=== PATIENT | female | born 1970 | race Caucasian/White ===

== ENCOUNTER 2018-03-09 10:56 | Day surgery (SDC) | payer MEDICAID, SELFPAY ==
[2018-03-09] VITALS (8 sets, daily range): BP systolic 120–135; BP diastolic 72–83; PULSE 82–92; RESP 14–16; TEMP 36.3–36.8; O2SAT 91–95; BMI 37.5
--- NOTE | 2018-03-09 11:15 | EKG12_ITS ---
Test Reason : PREOP Blood Pressure : / mmHG Vent. Rate : 073 BPM Atrial Rate : 073 BPM P-R Int : 156 ms QRS Dur : 094 ms QT Int : 408 ms P-R-T Axes : 058 008 030 degrees QTc Int : 449 ms Normal sinus rhythm Normal ECG Confirmed by IMMANUEL LOPEZ, JENNA ([id number]), editor news SHOSHANA STOUT ([id number]) on 03/14/2018 3:54:49 PM Referred By: Raul Gallagher Confirmed By:JENNA GAMBINO MD
[2018-03-09 11:31] LABS: Hematocrit 40.1 % (37-47); Hemoglobin 13.6 g/dl (12.0-15.0); Mean Corp Hgb Conc 33.9 g/gl (32-36); Mean Corpuscular Hgb 30.2 pg (27.0-32.0); Mean Corpuscular Volume 89.1 fL (81-99); Mean Platelet Vol. 8.4 fl (6.2-12.0); Platelet Count 231 K/mm3 (150-450); RBC Distribution Width SD 41.7 fl (35.1-43.9); Scan Indicated on CBC? Y/N NO; White Blood Count 7.5 K/mm3 (4.4-11.0)
[2018-03-09 11:42] LABS: Anion Gap 6 (5-15); BUN 13 mg/dL (7-18); Chloride 105 mmol/L (98-107); Creatinine, Serum 0.87 mg/dL (0.55-1.02); EST Glomerular Filtration Rate 74 mL/min (>60); Est Glom Filt Rate - Afr Amer 90 mL/min (>60); Estimated Creatinine Clearance 71.93 ml/min; Glucose 83 mg/dL (74-106); Potassium 3.9 mmol/L (3.5-5.1); Sodium Level 139 mmol/L (136-145)
--- NOTE | 2018-03-09 13:20 | PCM.DC.GS ---
Discharge Diet: Light diet - advance as tolerated - if you have questions about your diet instructions, please talk to you doctor. Discharge Activity: May Not Drive - for 1 week or while taking narcotic pain medicine. May shower in (days): 1 Lifting Restrictions: 5 pounds Call your doctor if your incision/area has: Continuous Slow Oozing, Sudden Increased Bleeding, Increased Pain/ Swelling, Increased Redness, Foul Smelling Discharge Call your doctor if you observe: Fever of 101 or Higher Suture Line Care: Avoid Pulling/Pushing, Avoid Pinching/Bending Additional Dressing/Incision Instructions:: Please keep your left hand clean and dry. You may elevate your left hand to eliminate swelling. You may wrap the left hand and plastic in order to shower. Allergies/Adverse Reactions: Allergies fluoxetine HCl [From Prozac] Adverse Reaction (Verified 02/13/18 15:29) Other IT MAKES ME VERY VIOLENT AND VERY EMOTIONAL Medications to take at Discharge Calcium Carbonate/Vitamin D3 [Calcium 500-Vit D3 200 Tablet] 1 ea PO DAILY 11/03/15 Levothyroxine [Synthroid] 75 mcg PO DAILY 11/03/15 Multivitamin [Daily Multiple Vitamin] 1 ea PO DAILY 11/03/15 Trazodone HCl 50 mg PO QHS 11/03/15 Venlafaxine XR [Effexor Xr] 150 mg PO DAILY 11/03/15 magnesium 250 mg tablet 250 mg PO DAILY 02/13/18 omeprazole 20 mg capsule,delayed release 40 mg PO QDAY cap 02/13/18 Hydrocodone Bitart/Apap 5-325 [Cumming 5MG-325MG] 1 tablet PO Q6H PRN PRN 3 Days #10 tablet 03/09/18 Hydrocodone Bitart/Apap 5-325 [Cumming 5MG-325MG] 1 tablet PO Q6H PRN PRN 3 Days #10 tablet 03/09/18 The following prescriptions were given: Hydrocodone Bitart/Apap 5-325 [Cumming 5MG-325MG] 1 tablet PO Q6H PRN PRN 3 Days #10 tablet PRN Reason: Pain Hydrocodone Bitart/Apap 5-325 [Cumming 5MG-325MG] 1 tablet PO Q6H PRN PRN 3 Days #10 tablet PRN Reason: Pain Primary Care Physician: Stanley Sweeney DO [Primary Care Provider] - Test Results: Test results from this visit will be discussed in further detail at your follow-up appointment, if applicable. Please Follow Up With: Raul Gallagher MD - [phone] When: Call to make an appointment to be seen on Tuesday
[2018-03-09] MEDS: Bacitracin 500 UNITS/GM PACKET (13:50)
[2018-03-09] MEDS: Bupivacaine Mpf 0.5% 30 ML VIAL (13:51)
--- NOTE | 2018-03-09 13:56 | PCM.OPRPT ---
Problem List (1) Carpal tunnel syndrome of left wrist Status: Acute Report of Operation Date of Procedure: 03/09/18 Pre-Operative Diagnosis: Left carpal tunnel syndrome Post-Operative Diagnosis: Same Surgery/Procedure Performed:: Left carpal tunnel release Description of Surgical Findings:: Timeout and informed consent was obtained. 47-year female was taken the operating placement table. The left extremity sterilely prepped and draped after a Mari block anesthesia was performed. Tourniquet to 250 mmHg pressure total 21 minutes. The left hand was sterilely prepped draped. A curvilinear incision was made the base of the left palm. Sharp dissection carried down through the subcu tissue. The palmar fascia was identified and incised. The median nerve was identified. The palmar fascia was incised to the proximal wrist crease and then along the fourth ray to the mid palm. Good release was achieved. The wound was closed with deep layer of interrupted 4-0 chromic. The skin edges approximated with simple sutures of 4-0 nylon. The. Incisional area was anesthetized with 2.5 cc of 0.5% Marcaine. Telfa 4 x 4 soft roll Hudson wrap applied. Sponge and instrument and needle counts were reported the surgeon be correct. Blood loss was minimal. Specimens none. Drains none. Blood loss minimal. She was taken to the recovery area in satisfactory condition without apparent complication. Raul Gallagher M.D., F.A.C.S. Type of Anesthesia:: Block,Regional, Local Anesthesiologist: Santhosh Cintron
--- OUTSIDE RECORDS SUMMARY | 2018-05-04 13:22 | XMS RPT_ITS ---
:1970 Author Organization OHIP Care Team Providers Name Role Phone FLOWER ERAZO ([facility]) Referring Unavailable EREN DUTTON Attending Unavailable FLOWER ERAZO ([facility]) Referring Unavailable EREN DUTTON Referring Unavailable STANLEY NEWBY Attending Unavailable YONG GALLAGHER Referring Unavailable HERBERTH ZARATE ([facility]) Referring Unavailable FLOWER ERAZO ([facility]) Attending Unavailable FLOWER ERAZO ([facility]) Referring Unavailable STANLEY NEWBY Attending Unavailable FLOWER ERAZO ([facility]) Referring Unavailable FLOWER ERAZO ([facility]) Attending Unavailable STANLEY NEWBY Referring Unavailable Hugo Gambino Attending Unavailable Yong Gallagher Referring Unavailable Freddie Lawson Attending Unavailable Stanley Newby Referring Unavailable Stanley Newby Primary Care Unavailable Yong Gallagher Attending Unavailable Stanley Newby Referring Unavailable Yong Gallagher Attending Unavailable Yong Gallagher Referring Unavailable Stanley Newby Primary Care Unavailable Flower Morris PA-C Attending Unavailable Stanley Newby Referring Unavailable PROBLEMS PROBLEMS DATE TYPE CONDITION / CODE ATTENDING STATUS SOURCE 03/20/2018 Unknown Z01.810 - Encounter Hugo Gambino Active [place] [facility] examination / Repository Z01.810(ICD-10) 03/09/2018 Unknown G89.18 - Other acute Yong Gallagher Active [place] postprocedural pain [facility] / G89.18(ICD-10) Hospital Repository 04/25/2017 Active Mixed hyperlipidemia NA Active [place] / E78.2(ICD-10) Clinic [facility] [place] Repository 10/31/2017 Active Vitamin D NA Active [place] deficiency, Clinic Main unspecified / [place] E55.9(ICD-10) Repository 10/31/2017 Active Other fdc NA Active [place] (current) drug Clinic Main therapy / [place] Z79.899(ICD-10) Repository 10/31/2017 Active Impaired fasting NA Active [place] glucose / Clinic Main R73.01(ICD-10) [place] Repository 08/29/2017 Active Nontoxic goiter, NA Active [place] unspecified / Clinic Main E04.9(ICD-10) [place] Repository 08/29/2017 Active Unspecified mood NA Active [place] (affective) disorder Clinic Main / F39(ICD-10) [place] Repository 08/29/2017 Active Primary insomnia / NA Active [place] F51.01(ICD-10) Clinic Main [place] Repository 08/29/2017 Active Other fatigue / NA Active [place] R53.83(ICD-10) Clinic Main [place] Repository 06/09/2017 Active Encounter for NA Active [place] screening mammogram Clinic Main for malignant [place] neoplasm of breast / Repository Z12.31(ICD-10) 04/13/2017 Active Obstructive sleep NA Active [place] apnea (adult) Clinic Other (pediatric) / [place] G47.33(ICD-10) Repository 04/22/2017 Active Unknown / Ralph NEWBY UNK(Unknown) STANLEY L Clinic Main [place] Repository 03/30/2017 Active Plantar fascial NA Active [place] fibromatosis / Clinic Main M72.2(ICD-10) [place] Repository PROCEDURES PROCEDURES No Procedure Records FoundRESULTS RESULTS SURGERY VISIT REPORT Observed: 03/16/2018 Status: F Source: [place] 10:58 AM [facility] REPOSITORY [facility] [address] [place] [address] OFFICE VISIT Date of Service: 03/16/18 MR#: [id number] Acct: [id number] Name: RONNIE DANGELO Rep #: [id number] : 1970 Provider: Flower Morris PA-C Age/Sex: 47/F Location: [facility] Status: Signed Intake Intake Visit Reasons: Suture Removal LT Ctr RC 03/09 Allergies fluoxetine HCl [From Prozac] Adverse Reaction (Verified 02/13/18 15:29) Other Medications Calcium Carbonate/Vitamin D3 [Calcium 500-Vit D3 200 Tablet] 1 ea PO DAILY 11/03/15 [History Confirmed 03/03/18] Levothyroxine [Synthroid] 75 mcg PO DAILY 11/03/15 [History Confirmed 03/03/18] Multivitamin [Daily Multiple Vitamin] 1 ea PO DAILY 11/03/15 [History Confirmed 03/03/18] Trazodone HCl 50 mg PO QHS 11/03/15 [History Confirmed 03/03/18] Venlafaxine XR [Effexor Xr] 150 mg PO DAILY 11/03/15 [History Confirmed 03/03/18] magnesium 250 mg tablet 250 mg PO DAILY 02/13/18 [History Confirmed 03/03/18] omeprazole 20 mg capsule,delayed release 40 mg PO QDAY cap 02/13/18 [History Confirmed 03/03/18] Subjective Details: Patient is a 47 y/o female I am following for left carpal tunnel. Dr. Gallagher performed a left carpal tunnel release on 03/09/18. Patient tolerated the procedure well. She notes minimal amount of pain/discomfort. She notes good ROM of the hand and fingers. Minimal amount of inflammation. Objective Details: Left wrist- incision c/d/i. No erythema or infection noted. Sutures were removed. Steri-strips were placed. Excellent ROM. Assessment AND Plan Problems 1. Carpal tunnel syndrome of left wrist G56.02 Plan - Follow-up as needed - RTW letter given for 03/20/18 Coding Level of Care Code Global Post Op Diagnoses Carpal tunnel syndrome of left wrist G56.02 03/16/18 1058 <Electronically signed by Flower Morris PA-C> Date Flower Morris PA-C Cosigner Signature: Date (if applicable) CC: Stanley Mosqueda DO 12 LEAD ELECTROCARDIOGRAM Observed: 03/14/2018 Status: F Source: [place] 3:55 PM [facility] REPOSITORY [facility] Cardiovascular Services [address] [place] [address] [place] [address] 12 Lead EKG 03/09/18 1137 MR#: [id number] Acct: [id number] Name: RONNIE DANGELO Rep #: [id number] : 1970 47 From: Hugo Gambino MD Attending Dr: Yong Gallagher MD Status: [facility] Ordering Dr: Yong Gallagher MD Date: 03/09/18 Location: [facility] Sex: F C Admitted: Test Reason : PREOP Blood Pressure : / mmHG Vent. Rate : 073 BPM Atrial Rate : 073 BPM P-R Int : 156 ms QRS Dur : 094 ms QT Int : 408 ms P-R-T Axes : 058 008 030 degrees QTc Int : 449 ms Normal sinus rhythm Normal ECG Confirmed by IMMANUEL LOPEZ, HUGO ([id number]), publishing editor SHOSHANA STOUT ([id number]) on 03/14/2018 3:54:49 PM Referred By: Yong Gallagher Confirmed By:HUGO GAMBINO MD 03/14/18 1554 Date Hugo Gambino MD CC: Stanley Mosqueda DO; Yong Gallagher MD Signed DISCHARGE INSTRUCTION Observed: 03/09/2018 Status: F Source: [place] 2:32 PM [facility] REPOSITORY [facility] Medical Records Department [address] [place] [address] Instructions for Home/Discharge Instructions 03/09/18 1320 MR#: [id number] Acct: [id number] Name: RONNIE DANGELO Rep #: [id number] : 1970 47 From: Yong Gallagher MD PCP: Stanley Mosqueda, Status: REG SDC Discharge Diet: Light diet - advance as tolerated - if you have questions about your diet instructions, please talk to you doctor. Discharge Activity: May Not Drive - for 1 week or while taking narcotic pain medicine. May shower in (days): 1 Lifting Restrictions: 5 pounds Call your doctor if your incision/area has: Continuous Slow Oozing, Sudden Increased Bleeding, Increased Pain/ Swelling, Increased Redness, Foul Smelling Discharge Call your doctor if you observe: Fever of 101 or Higher Suture Line Care: Avoid Pulling/Pushing, Avoid Pinching/Bending Additional Dressing/Incision Instructions:: Please keep your left hand clean and dry. You may elevate your left hand to eliminate swelling. You may wrap the left hand and plastic in order to shower. Allergies/Adverse Reactions: Allergies fluoxetine HCl [From Prozac] Adverse Reaction (Verified 02/13/18 15:29) Other IT MAKES ME VERY VIOLENT AND VERY EMOTIONAL Medications to take at Discharge Calcium Carbonate/Vitamin D3 [Calcium 500-Vit D3 200 Tablet] 1 ea PO DAILY 11/03/15 Levothyroxine [Synthroid] 75 mcg PO DAILY 11/03/15 Multivitamin [Daily Multiple Vitamin] 1 ea PO DAILY 11/03/15 Trazodone HCl 50 mg PO QHS 11/03/15 Venlafaxine XR [Effexor Xr] 150 mg PO DAILY 11/03/15 magnesium 250 mg tablet 250 mg PO DAILY 02/13/18 omeprazole 20 mg capsule,delayed release 40 mg PO QDAY cap 02/13/18 Hydrocodone Bitart/Apap 5-325 [[place] 5MG-325MG] 1 tablet PO Q6H PRN PRN 3 Days #10 tablet 03/09/18 Hydrocodone Bitart/Apap 5-325 [[place] 5MG-325MG] 1 tablet PO Q6H PRN PRN 3 Days #10 tablet 03/09/18 The following prescriptions were given: Hydrocodone Bitart/Apap 5-325 [[place] 5MG-325MG] 1 tablet PO Q6H PRN PRN 3 Days #10 tablet PRN Reason: Pain Hydrocodone Bitart/Apap 5-325 [[place] 5MG-325MG] 1 tablet PO Q6H PRN PRN 3 Days #10 tablet PRN Reason: Pain Primary Care Physician: Stanley Newby DO [Primary Care Provider] - Test Results: Test results from this visit will be discussed in further detail at your follow-up appointment, if applicable. Please Follow Up With: Yong Gallagher MD - [phone] When: Call to make an appointment to be seen on Tuesday03/09/18 1432 <Electronically signed by Yong Gallagher MD> Date Yong Gallagher MD CC: Stanley Mosqueda DO OPERATIVE REPORT Observed: 03/09/2018 Status: F Source: [place] 2:32 PM [facility] REPOSITORY [facility] Medical Records Department [address] [place] [address] Operative Report 03/09/18 1356 MR#: [id number] Acct: [id number] Name: RONNIE DANGELO Rep #: [id number] : 1970 47 From: Yong Gallagher MD PCP: Stanley Mosqueda DO Status: REG [facility] Y Location: [place] [address] Problem List (1) Carpal tunnel syndrome of left wrist Status: Acute Report of Operation Date of Procedure: 03/09/18 Pre-Operative Diagnosis: Left carpal tunnel syndrome Post-Operative Diagnosis: Same Surgery/Procedure Performed:: Left carpal tunnel release Description of Surgical Findings:: Timeout and informed consent was obtained. 47-year female was taken the operating placement table. The left extremity sterilely prepped and draped after a Mari block anesthesia was performed. Tourniquet to 250 mmHg pressure total 21 minutes. The left hand was sterilely prepped draped. A curvilinear incision was made the base of the left palm. Sharp dissection carried down through the subcu tissue. The palmar fascia was identified and incised. The median nerve was identified. The palmar fascia was incised to the proximal wrist crease and then along the fourth ray to the mid palm. Good release was achieved. The wound was closed with deep layer of interrupted 4-0 chromic. The skin edges approximated with simple sutures of 4-0 nylon. The. Incisional area was anesthetized with 2.5 cc of 0.5% Marcaine. Telfa 4 x 4 soft roll [place] wrap applied. Sponge and instrument and needle counts were reported the surgeon be correct. Blood loss was minimal. Specimens none. Drains none. Blood loss minimal. She was taken to the recovery area in satisfactory condition without apparent complication. Yong Gallagher M.D., F.A.C.S. Type of Anesthesia:: Block,Regional, Local Anesthesiologist: Santhosh Cintron 03/09/18 1432 <Electronically signed by Yong Gallagher MD> Date Yong Gallagher MD CC: Stanley Mosqueda DO; Yong Gallagher MD Signed CBC-COMPLETE BLOOD CNT Collected: 03/09/2018 Status: F Source: [place] NO DIFF 11:26 AM [facility] REPOSITORY Order Comment: Comments: in ac room 15 TYPE CODE TESTS RESULT OUT OF RANGE REFERENCE UNITS LAB L100.1000 4.4-11.0 K/mm3 Normal WBC 7.5 LAB L100.1200 4.2-5.4 M/mm3 Normal RBC 4.50 LAB L100.1300 12.0-15.0 g/dl Normal HGB 13.6 LAB L100.1400 37-47 % Normal HCT 40.1 LAB L100.1500 81-99 fL Normal MCV 89.1 LAB L100.1600 27.0-32.0 pg Normal MCH 30.2 LAB L100.1700 32-36 g/gl Normal MCHC 33.9 LAB L100.1810 11.6-14.6 % Normal RDW CV 13.0 LAB L100.1820 35.1-43.9 fl Normal RDW SD 41.7 LAB L100.1900 150-450 K/mm3 Normal PLT 231 LAB L100.2000 6.2-12.0 fl Normal MPV 8.4 Performed By: #### L100.0500 #### [facility] [address] [place], [address] BASIC METABOLIC Collected: 03/09/2018 Status: F Source: [place] PROFILE (BMP) 11:26 AM [facility] REPOSITORY Order Comment: Comments: in ac room 15 TYPE CODE TESTS RESULT OUT OF RANGE REFERENCE UNITS LAB L501.0100 74-106 mg/dL Normal GLU 83 Result Comment: Please note revised GLUCOSE reference range effective 2017. LAB L501.1000 7-18 mg/dL Normal BUN 13 LAB L501.1100 0.55-1.02 mg/dL Normal CREAT,SERUM 0.87 Result Comment: The validity of the calculated GFR AND GFRAA in patients over 70 years has not been determined. Clinical correlation is essential. LAB L501.1110 >60 mL/min Normal EST GFR 74 Result Comment: Non- GFR Calc LAB L501.1115 >60 mL/min Normal EST GFR - AA 90 Result Comment: GFR Calc LAB L501.1255 ml/min Normal Estimated CRCL 71.93 LAB L501.1300 10-20 RATIO Normal BUN/CRE 15.0 LAB L501.2200 8.5-10 mg/dL Normal .1 CA 9.0 LAB L501.5300 136-14 mmol/L Normal 5 NA 139 LAB L501.5600 3.5-5. mmol/L Normal 1 K 3.9 LAB L501.5900 98-107 mmol/L Normal CL 105 LAB L501.6100 21.0-3 mmol/L Normal 2.0 CO2 28.0 LAB L501.6200 5-15 Normal GAP 6 Performed By: #### L500.2500 #### [facility] [address] [place], [address] SURGERY VISIT REPORT Observed: 02/13/2018 Status: F Source: [place] 5:33 PM [facility] REPOSITORY [facility] [address] [place] [address] OFFICE VISIT Date of Service: 02/13/18 MR#: [id number] Acct: [id number] Name: RONNIE DANGELO Rep #: [id number] : 1970 Provider: Yong Gallagher MD Age/Sex: 47/F Location: [facility] Status: Signed Intake Vital Signs02/13/18 Height 5 ft 5 in 02/13/18 Weight: 226 lb Intake Visit Reasons: Lt CTS-EMG [facility] 06/2016 - Req RC only he did Rt CTS [employer] Required: No Is patient in pain?: No Allergies fluoxetine HCl [From Prozac] Adverse Reaction (Verified 02/13/18 15:29) Other Medications Calcium Carbonate/Vitamin D3 [Calcium 500-Vit D3 200 Tablet] 1 ea PO DAILY 11/03/15 [History Confirmed 02/13/18] Levothyroxine [Synthroid] 75 mcg PO DAILY 11/03/15 [History Confirmed 02/13/18] Multivitamin [Daily Multiple Vitamin] 1 ea PO DAILY 11/03/15 [History Confirmed 02/13/18] Trazodone HCl 50 mg PO QHS 11/03/15 [History Confirmed 02/13/18] Venlafaxine XR [Effexor Xr] 150 mg PO DAILY 11/03/15 [History Confirmed 02/13/18] magnesium 250 mg tablet 250 mg PO DAILY 02/13/18 [History Confirmed 02/13/18] omeprazole 20 mg capsule,delayed release 40 mg PO QDAY cap 02/13/18 [History Confirmed 02/13/18] [facility] Medical History Anemia (Acute) Carpal tunnel syndrome (Acute) Depression (Acute) Diastasis of rectus abdominis (Acute 12/2015) Dysthymic disorder (Acute) Frequent headaches (Acute) GERD (gastroesophageal reflux disease) (Acute) Genital herpes in women (Acute 01/2007) HSV (herpes simplex virus) anogenital infection (Acute) Hypercholesteremia (Acute 05/2015) SHAINA (obstructive sleep apnea) (Acute 04/2017) Onychomycosis (Acute) Vision problems (Acute) Vitamin D deficiency (Acute) Surgical History History of appendectomy (Acute) History of carpal tunnel surgery of right wrist (Acute 09/2016) History of thyroid nodule (Acute 07/2007) History of thyroid surgery (Acute 08/2007) History of vaginal hysterectomy (Acute 11/2009) Family History Mother Anesthesia complication High cholesterol Thyroid disorder Father Anxiety Depression Diabetes High cholesterol CVA (cerebral vascular accident) Sister Thyroid disorder Grandmother Breast cancer Cancer Grandfather Cancer Social History household members: spouse number of children: 3 current occupational status: unemployed Smoking Status: Never smoker alcohol intake: never substance use type: does not use additional social history: CONTROL/PROTECTION: HAD VASECTOMY AND SHE HAS HAD A HYSTERECTOMY HPI HPI HPI: RONNIE DANGELO, is a 47 F who presents to the office today for surgical consultation regarding left carpal tunnel syndrome. This is a very pleasant patient. On June 30, 2016 she had nerve conduction test performed at the [facility]. This was consistent with moderate bilateral carpal tunnel syndrome. I subsequently took her to the operating room in [facility] to perform a right carpal tunnel release performed under a [place] block. The surgery proceeded well however the Mari block was complicated by the anesthesia injection of Marcaine rather than lidocaine. This led to 2-1/2 hours of tourniquet time and the need for lipid infusion and overnight ICU stay. Fortunately the patient has had a good surgical result with resolution of her right hand symptoms. She presents today as she does not want to be referred back to to [place]. She notes numbness of her left first 3 digits. She notes tingling. She would like to proceed with definitive treatment ROS General General: Yes weight change and fatigue; no appetite, colon cancer, breast cancer or weakness HEENT HEENT: No difficulty swallowing, eye injury, eye surgery, swollen glands or hoarseness Endo Endocrine: Yes thyroid disease; no diabetes mellitus, thyroid cancer, Hair loss, heat intolerance or cold intolerance Skin Skin: No rash or changing moles Breast Breast: No left breast lump, right breast lump, nipple discharge, breast pain, abnormal mammogram, abnormal US or breast enlargement Musc Musculoskeletal: No back problems, arthritis, rheumatoid arthritis, gout or joint pain Cardio Cardiovascular: No murmur, pacemaker, heart disease, atrial fibrillation, high blood pressure, heart attack, heart stent, palpitations, shortness of breat with exertion or chest pain Psych Psychiatric: Yes depression and anxiety; no hearing voices Resp Respiratory: Yes shortness of breath, Yes sleep apnea, No cough, No COPD, No asthma, No emphysema, No wheezing Gastro Gastrointestinal: No abdominal pain, No nausea or vomiting, No diarrhea, Yes constipation, No blood in stool, Yes acid reflux, No hemorrhoids, No ulcers, No gallbladder problem, No black,tarry stools Khris Hematologic: No blood thinners, No blood disorders, No bleeding, No anemia, No blood clots Neuro Neurologic: No system reviewed and no additional complaints, except as docu, No as per HPI, No abnormal walking, No abnormal hearing, No abnormal movements, No abnormal speech, No behavioral changes, No burning sensations, No confusion, No seizure-like activity, No unsteadiness, No dizziness, No localized weakness, No frequent falls, No headache(s), No lack of coordination, No loss of vision, No memory loss, Yes numbness, No other visual disturbances, No radiating pain, No restless legs, No sensory deficit, No fainting, Yes tingling, No tremor(s), No weakness, No other Exam Const General: cooperative Nutritional Appearance: obese Orientation: alert, awake, oriented x3 HENMT Head: normal to inspection Eyes General: appearance normal, both eyes and all related structures Chest Chest palpation AND inspection: normal inspection of the chest Breast Palpation: No nipple discharge Resp Effort AND Inspection: normal respiratory effort Auscultation: clear to auscultation bilaterally Cardio Rate: regular rate Rhythm: regular rhythm Heart Sounds: no murmurs GI Palpation: soft, no hepatosplenomegaly Extrem Other: Well-healed surgical incision right volar palm. Slight thenar atrophy on the left. Tinel sign is positive. 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 Carpal tunnel syndrome of left wrist G56.02 Plan I have recommended the patient left carpal tunnel release. I described the technique, benefits, risks, alternatives. I do propose that we proceed with a Mari block anticipating a lidocaine block. She has had the opportunity to ask and have questions answered. She would like to proceed with this procedure at the [facility]. I certainly appreciate the kind opportunity of continue to assist with her surgical care CC: Dr. Stanley Gallagher M.D., F.A.C.S. Coding Level of Care Code Off vis,est,level 2 Diagnoses Carpal tunnel syndrome of left wrist G56.02 02/13/18 1733 <Electronically signed by Yong Gallagher MD> Date Yong Gallagher MD Cosigner Signature: Date (if applicable) CC: Stanley Mosqueda DO PROGRESS Observed: 02/02/2018 Status: COMPLETED Source: [place] 12:11 PM [facility] RE[facility] HNO ID: [id number] Author: Flower Kendrick (Artist'S Representative) Castro Service: (none) Author Type: Nurse Practitioner Type: Progress Notes Filed: 02/02/2018 12:16 PM Note Text: HPI/CC: Ronnie Dangelo is a 47 year old female who presents for Recheck (3 month follow up) and Imm/Inj (Flu Vaccine). Today is concerned about worsening left UE carpal tunnel, requesting referral for surgery. Noticed increased numbness and tingling in the last 2-3 weeks. Has attempted splints and NSAIDs- no longer using splints. Has questions regarding diastasis recti repair. Previously seen by Dr. Perez per patient. Repair on hold d/t insurance per patient. ROS as above, otherwise non-contributory. Reviewed PMHx, PSHx, social Hx, medications and allergies. PHYSICAL EXAMINATION: BP 126/84 Pulse 96 Resp 16 Wt 102.5 kg (226 lb) LMP 11/16/2009 BMI 38.82 kg/m? General appearance: Well appearing, alert, in no acute distress, well-hydrated, well nourished. and Obese Skin: Skin color, texture, turgor normal, no suspicious rashes or lesions Lungs: Lungs clear to auscultation. No wheezing, rhonchi, rales Heart: RRR without murmur, gallop, or rubs. No ectopy ASSESSMENT/PLAN: 1. Carpal tunnel syndrome, left - ICD9: 354.0, ICD10: G56.02 (primary diagnosis) - CONSULT TO GENERAL SURGERY 2. Diastasis of rectus abdominis - ICD9: 728.84, ICD10: M62.08 - f/u with surgeon for recommendations 3. Need for vaccination - ICD9: V05.9, ICD10: Z23 - INFLUENZA VACCINE QUADRIVALENT AGE 3 YRS PLUS + IM Flower Erazo APRN.[employer]SEM[employer]ER PROGRESS Observed: 02/02/2018 Status: COMPLETED Source: [place] 11:59 AM [facility] REPOSITORY HNO ID: [id number] Author: Graciela Waters LPN Service: (none) Author Type: (none) Type: Progress Notes Filed: 02/02/2018 12:16 PM Note Text: 47 year old female here for INACTIVATED INFLUENZA VACCINE. 9663-5207 Season Patient is identified by name and date of : Yes [] CONTRAINDICATIONS color enhanced section Age less than 6 months? No Allergy to eggs, chicken, chicken feathers, or chicken dander? No Allergy to thimerosal (a preservative) or formaldehyde, gelatin? No History of severe reaction to any vaccine component or a previous dose of influenza vaccination? No History of Guillain-Burton Syndrome within 6 weeks after a previous influenza vaccine? No Patient is not moderately or severely ill? No Current temperature greater or equal to 100.4F? No History of Bone Marrow Transplant prior 6 months or solid organ transplant in the past 3 months ? No History of fainting after a prior injection or medical procedure? No- ? If patient has fainted in the past, the CDC recommends sitting or lying down for 15 minutes after the vaccination. [] VERIFICATION color enhanced section Was the answer Yes for any of the above contraindications? No contraindications present. Acceptable to proceed with vaccine. Patient/guardian agrees the above answers are true to the best of their knowledge? Yes Flu vaccine information sheet given? Yes See immunization activity in [facility] for details of immunizations adminstered today. Patient age: [age] year old For The 6747-3799 Flu Season 6-35 months old: Fluzone 0.25 ml - IM (Preservative Free) 3 years of age: Fluzone 0.5 ml - IM (Preservative Free) 3 years and older: Fluzone 0.5 ml- IM-(with Preservatives) 65+ years old: 2-49 years old Fluzone High-Dose 0.5 ml - IM (Preservative Free) FLUMIST- intranasal REMEMBER: If patient is less than 9 years of age and this is the first vaccine of Influenza to be received in any flu season, they should receive a second dose in one months time. CNOV Observed: 02/02/2018 Status: COMPLETED Source: [place] 10:40 AM [facility] REPOSITORY Office Visit (FAMPWS) RONNIE DANGELO ([id number]) 1970 F BLD Date Time Provider Department 02/02/18 10:40 AM FLOWER ERAZO ([facility]) FAMPWS During your visit today, we recorded the following information about you: Pulse Respiration Blood pressure Weight 96/minute 16/minute 126/84 102.5 kg Graciela Waters LPN 02/02/2018 12:16 PM Signed 47 year old female here for INACTIVATED INFLUENZA VACCINE. 1379-4443 Season Patient is identified by name and date of : Yes [] CONTRAINDICATIONS color enhanced section Age less than 6 months? No Allergy to eggs, chicken, chicken feathers, or chicken dander? No Allergy to thimerosal (a preservative) or formaldehyde, gelatin? No History of severe reaction to any vaccine component or a previous dose of influenza vaccination? No History of Guillain-Burton Syndrome within 6 weeks after a previous influenza vaccine? No Patient is not moderately or severely ill? No Current temperature greater or equal to 100.4F? No History of Bone Marrow Transplant prior 6 months or solid organ transplant in the past 3 months ? No History of fainting after a prior injection or medical procedure? No- ? If patient has fainted in the past, the CDC recommends sitting or lying down for 15 minutes after the vaccination. [] VERIFICATION color enhanced section Was the answer Yes for any of the above contraindications? No contraindications present. Acceptable to proceed with vaccine. Patient/guardian agrees the above answers are true to the best of their knowledge? Yes Flu vaccine information sheet given? Yes See immunization activity in [facility] for details of immunizations adminstered today. Patient age: [age] year old For The [id number] Flu Season 6-35 months old: Fluzone 0.25 ml - IM (Preservative Free) 3 years of age: Fluzone 0.5 ml - IM (Preservative Free) 3 years and older: Fluzone 0.5 ml- IM-(with Preservatives) 65+ years old: 2-49 years old Fluzone High-Dose 0.5 ml - IM (Preservative Free) FLUMIST- intranasal REMEMBER: If patient is less than 9 years of age and this is the first vaccine of Influenza to be received in any flu season, they should receive a second dose in one months time. Flower Erazo APRN.[employer] 02/02/2018 12:16 PM Signed HPI/CC: Ronnie Dangelo is a 47 year old female who presents for Recheck (3 month follow up) and Imm/Inj (Flu Vaccine). Today is concerned about worsening left UE carpal tunnel, requesting referral for surgery. Noticed increased numbness and tingling in the last 2-3 weeks. Has attempted splints and NSAIDs- no longer using splints. Has questions regarding diastasis recti repair. Previously seen by Dr. ePrez per patient. Repair on hold d/t insurance per patient. ROS as above, otherwise non-contributory. Reviewed PMHx, PSHx, social Hx, medications and allergies. PHYSICAL EXAMINATION: BP 126/84 Pulse 96 Resp 16 Wt 102.5 kg (226 lb) LMP 11/16/2009 BMI 38.82 kg/m? General appearance: Well appearing, alert, in no acute distress, well-hydrated, well nourished. and Obese Skin: Skin color, texture, turgor normal, no suspicious rashes or lesions Lungs: Lungs clear to auscultation. No wheezing, rhonchi, rales Heart: RRR without murmur, gallop, or rubs. No ectopy ASSESSMENT/PLAN: 1. Carpal tunnel syndrome, left - ICD9: 354.0, ICD10: G56.02 (primary diagnosis) - CONSULT TO GENERAL SURGERY 2. Diastasis of rectus abdominis - ICD9: 728.84, ICD10: M62.08 - f/u with surgeon for recommendations 3. Need for vaccination - ICD9: V05.9, ICD10: Z23 - INFLUENZA VACCINE QUADRIVALENT AGE 3 YRS PLUS + IM Flower Erazo APRN.[employer]ER Referring Provider: STANLEY NEWBY [[id number]] Allergies As of Date: 02/02/2018 Noted Allergy Reaction PROZAC (FLUOXETINE HCL) 07/14/2011 14 - Other: See Comments Comments: Aggressive behavior, emotional Date Reviewed: 02/02/2018 Reviewed by: Graciela Waters LPN - Fully Assessed Reason for Visit: Recheck [92] Cmt: 3 month follow up Imm/Inj [58] Cmt: Flu Vaccine Reason For Visit History Recorded Primary Visit Diagnosis:Carpal tunnel syndrome, left [G56.02] Other Visit Diagnoses:Diastasis of rectus abdominis [M62.08] Need for vaccination [Z23] Order(s):CONSULT TO GENERAL SURGERY [9011] Order #: [id number]: 1 INFLUENZA VACCINE QUADRIVALENT AGE 3 YRS PLUS + IM [[id number]] Order #: [id number] Prescriptions as of 02/02/2018 Sig: TRAZODONE 50 MG TABLET Take 1 tablet by mouth daily * TRIAMCINOLONE ACETONIDE 0.1 %* Apply 1 application to affect* PANTOPRAZOLE 40 MG TABLET,DEL* Take 1 tablet by mouth once d* VENLAFAXINE ER 150 MG CAPSULE* Take 1 capsule by mouth once * CALCIUM CARBONATE-VITAMIN D3 * Take 1 tablet by mouth twice * FLUTICASONE 50 MCG/ACTUATION * Use 2 Sprays in each nostril * LEVOTHYROXINE 75 MCG TABLET Take 1 tablet by mouth daily * COMPOUNDED PRESCRIPTION CPAP Supplies; hose; mask * CPAP Initiate CPAP @ 10 cm of wate* COMPOUNDED PRESCRIPTION Powerstep full length origina* CHOLECALCIFEROL (VITAMIN D3) * Take 1 tablet by mouth once d* ASPIRIN 325 MG TABLET Take 325 mg by mouth once enmanuel* * DAILY VITAMIN TABLET Take one(1) tablet daily. 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.9] INVALID FOR* KARLOS'S DISEASE OR STRUMA [E06.3] INVALID FOR* Abdominal pain, lower [R10.30] INVALID FOR*07/14/2011 Menorrhagia [N92.0] INVALID FOR*07/14/2011 Enlarged uterus [N85.2] INVALID FOR*07/14/2011 Pelvic pain INVALID FOR*07/14/2011 Anxiety [F41.9] INVALID FOR* Panic attack [F41.0] INVALID FOR* Diastasis of rectus abdominis [M62.08] INVALID FOR*04/13/2017 Carpal tunnel syndrome, bilateral [G56.03] INVALID FOR* Gastroesophageal reflux disease without esophag*INVALID FOR* Medication monitoring encounter [Z51.81] INVALID FOR*04/13/2017 SHAINA (obstructive sleep apnea) [G47.33] INVALID FOR* Mixed hyperlipidemia [E78.2] INVALID FOR* Obesity, Class II, BMI 35-39.9 [E66.9] INVALID FOR* Diastasis of rectus abdominis [M62.08] INVALID FOR* Vitamin D deficiency [E55.9] INVALID FOR* Elevated fasting glucose [R73.01] INVALID FOR* Plantar fasciitis [M72.2] INVALID FOR* Belching [R14.2] INVALID FOR* Rhus dermatitis [L23.7] INVALID FOR* Encounter Status:Closed by FLOWER ERAZO CNP on 02/02/18 LIPID PANEL, BASIC Collected: 10/31/2017 Status: F Source: [place] 9:54 AM [facility] REPOSITORY TYPE CODE TESTS RESULT OUT OF REFERENCE UNITS RANGE LAB CHOL <200 mg/dL Cholesterol 186 Result Comment: <200 mg/dL, Desirable 200-239 mg/dL, Borderline high >239 mg/dL, High LAB TRIGLY <150 mg/dL Triglyceride High 162 Result Comment: <150 mg/dL, Normal 150-199 mg/dL, Borderline high 200-499 mg/dL, High >499 mg/dL, Very high LAB HDL >39 mg/dL HDL-Cholesterol 46 Result Comment: 40-59 mg/dL, Acceptable >59 mg/dL, High: Negative risk factor for coronary heart disease <40 mg/dL, Low: Positive risk factor for coronary heart disease LAB LDL <100 mg/dL LDL-Cholesterol High 108 Result Comment: <100 mg/dL, Optimal 100-129 mg/dL, Near optimal/above optimal 130-159 mg/dL, Borderline high 160-189 mg/dL, High >189 mg/dL, Very high Secondary prevention optimal LDL Cholesterol levels are recommended to be < 70 mg/dL LAB NONHDL <130 mg/dL Non HDL High Cholesterol 140 Result Comment: <130 mg/dL, Optimal 130-159 mg/dL, Near optimal/above optimal 160-189 mg/dL, Borderline high 190-219 mg/dL, High >219 mg/dL, Very high Secondary prevention optimal non HDL Cholesterol levels are recommended to be < 100 mg/dL LAB FT hrs Fasting Time 12 LAB VLDL <30 mg/dL High VLDL Cholesterol 32 LAB TCHDL <5.10 TC:HDL Ratio 4.04 LAB LDLHDL <2.54 LDL:HDL Ratio 2.35 Result Comment: Reference: 1. National Cholesterol Education Program ATP III Guideline At-A-Glance Quick Desk Reference: National Heart, Lung, and Blood [place]. National Institutes of Health. 2001: NIH Publication No. 01-3305. 2. An International Atherosclerosis Society position paper: global recommendations for the management of dyslipidemia: executive summary, Atherosclerosis. 2014: 232(2):410-413. Performed By: #### LIPB, HBA1C, VITD #### [facility] [address], [place] [address] HEMOGLOBIN A1C Collected: 10/31/2017 Status: F Source: [place] 9:54 AM [facility] REPOSITORY TYPE CODE TESTS RESULT OUT OF REFERENCE UNITS RANGE LAB HGBA1C 4.3-5.6 % Hemoglobin A1c 4.9 LAB HBA0 mg/dL Est. Average Glucose 94 Result Comment: eAG: (Estimated average glucose) is a calculated value from HgbA1c and is telemarketing sales representative of the average blood glucose level in the last 2-3 month period. Performed By: #### LIPB, HBA1C, VITD #### [facility] [address], [place] [address] VITAMIN D 25 HYDROXY Collected: 10/31/2017 Status: F Source: [place] 9:54 AM [facility] REPOSITORY TYPE CODE TESTS RESULT OUT OF REFERENCE UNITS RANGE LAB VITD 31.0-80.0 ng/mL Vitamin D 25 37.4 Hydroxy Result Comment: Classification of 25 [place] Vitamin D status: Insufficiency/Moderate Deficiency: < or = 30 ng/mL Sufficiency/Optimal Levels: 31 to 80 ng/mL Toxicity: > 100 ng/mL Test performed by chemiluminescent immunoassay. Performed By: #### LIPB, HBA1C, VITD #### [facility] [address] [place], [place] [address] PROGRESS Observed: 10/31/2017 Status: COMPLETED Source: [place] 8:58 AM [facility] REPOSITORY HNO ID: [id number] Author: Stanley Newby Service: (none) Author Type: Physician Type: Progress Notes Filed: 11/01/2017 6:59 AM Note Text: CC: Ronnie Dangelo is a 46 year old female who presents to the office for 6 months follow up HPI: Rash on face, started on face about 2-3 days ago, also area on upper back, slightly itchy, red. Had done some vine removal last week. b/l foot pain, hx of plantar fasciitis on left foot, right Is greater pain now, stands at lot at her job, has old tennis shoes but has put in shoe inserts with mild relief, no regular icing or stretching. Mood, hx of depression, stable HPL, hasn't had recently rechecked Heartburn, acid reflux symptoms daily, not just food triggered, no nausea or bowel changes or blood in stool, no vomiting or dysphagia Diastasis rectus, working with surgeon to get approved for repair with insurance PAST MEDICAL HISTORY Diagnosis Date - Diastasis of rectus abdominis 12/11/2015 - Dysthymic disorder Depression (non-psychotic) - Genital herpes, unspecified 01/09/2007 - HSV (herpes simplex virus) anogenital infection 1990 - Hypercholesteremia 05/2015 - Onychomycosis - SHAINA (obstructive sleep apnea) 04/13/2017 PAST SURGICAL HISTORY Procedure Laterality Date - APPENDECTOMY - REVISE MEDIAN N/CARPAL TUNNEL SURG Right 09/13/2016 - THYROID LEFT FINE NEEDLE ASPIRATION 08/02/07 U/ S FNA left thyroid nodule - THYROID LOBECTOMY,UNILAT 08/31/07 LEFT - VAGINAL HYSTERECTOMY 12/01/09 [facility] for fibroid, menorrhagia, adenomyosis Current Outpatient Prescriptions: venlafaxine ER (EFFEXOR XR) 150 mg 24 hr capsule Take 1 capsule by mouth once daily. calcium carbonate-vitamin D3 500mg (1,250mg) -600 unit tab Take 1 tablet by mouth twice daily. fluticasone (FLONASE) 50 mcg/actuation nasal spray Use 2 Sprays in each nostril once daily. Rinse mouth after use. levothyroxine (LEVOTHROID) 75 mcg tablet Take 1 tablet by mouth daily before breakfast. COMPOUNDED PRESCRIPTION CPAP Supplies; hose; mask DX: SHAINA CPAP Initiate CPAP @ 10 cm of water with humidification. Mask (per patient preference) optional chin strap (if indicated) , filters, tubing, humidifier and lifetime supplies. omeprazole (PRILOSEC) 20 mg capsule Take 1 capsule by mouth daily before breakfast. 1/2 hr before meal. COMPOUNDED PRESCRIPTION Powerstep full length originalDx: plantar fasciitis cholecalciferol (VITAMIN D3) 2,000 unit tablet Take 1 tablet by mouth once daily. traZODone (DESYREL) 50 mg tablet Take 1 tablet by mouth daily at bedtime. multivitamins(DAILY VITAMIN TAB) Take one(1) tablet daily. aspirin 325 mg tablet Take 325 mg by mouth once daily. No current facility-administered medications for this visit. ALLERGIES Allergen Reactions - Prozac [Fluoxetine * Other: See Comments Aggressive behavior, emotional Social History Marital status: Spouse name: SHANE Years of education: 12 Number of children: 3 Occupational History Occupation Employer Comment not employed Social History Main Topics Smoking status: Never Smoker Smokeless tobacco: Never Used Alcohol use: No Drug use: No Sexual activity: Yes Partners with: Male control/protection: Vasectomy ROS: See HPI PE: BP 116/70 Pulse 80 Temp (Src) 98.3 (Left Tympanic) Resp 16 Wt 228 lb (103.4kg) LMP 11/16/2009 Gen: AANDOX3, NAD, non-toxic appearing HEENT: PERRLA, EOMs intact b/l, nares without drainage, pharynx without erythema, exudate, lesions, or drainage. Uvula midline. Neck: No LAD, no thyromegaly, no meningismus. CV: RRR, no murmur Lungs: CTA b/l, no wheezing Skin: erythematous papulovesicular rash around right cheek and supeiror and inferior orolabial areas as well as left upper back and right forearm TTP plantar surface of heel on right >left Diastasis recti abd muscles ASSESSMENT/PLAN: 1. Rhus dermatitis - ICD9: 692.6, ICD10: L23.7 (primary diagnosis) - discussed skin care of rash - follow up if symptoms persist or worsen. - TRIAMCINOLONE ACETONIDE 0.1 % TOPICAL CREAM - PREDNISONE 10 MG TABLET 2. Gastroesophageal reflux disease without esophagitis - ICD9: 530.81, ICD10: K21.9 - Discussed lifestyle modifications including losing weight, limiting caffeine, no meals three hours before sleep and head of bed elevation - Begin treatment with Protonix 40 mg qday - PANTOPRAZOLE 40 MG TABLET,DELAYED RELEASE 3. Belching - ICD9: 787.3, ICD10: R14.2 - see above - PANTOPRAZOLE 40 MG TABLET,DELAYED RELEASE 4. Plantar fasciitis - ICD9: 728.71, ICD10: M72.2 - stretches and icing and follow up with filling winder if heel cups and these conservative measures without improvement 5. Mixed hyperlipidemia - ICD9: 272.2, ICD10: E78.2 - to be determined upon return of lab results - Continue current medication. - Encouraged following a low fat, low cholesterol diet. - Discussed the benefits of regular aerobic exercise and weight loss. - Check fasting lipid panel - LIPID PANEL BASIC 6. Elevated fasting glucose - ICD9: 790.21, ICD10: R73.01 - HGB A1C 7. Vitamin D deficiency - ICD9: 268.9, ICD10: E55.9 - continue supplement 8. SHAINA (obstructive sleep apnea) - ICD9: 327.23, ICD10: G47.33 - continue CPAP- 9. Diastasis of rectus abdominis - ICD9: 728.84, ICD10: M62.08 - f/u with surgeon Stanley Newby DO Return if no improvement. Follow up with Stanley Newby DO. Discussed risks, benefits, alternatives, and potential side effects of medications. Patient/Guardian expressed understanding and agreed with the plan. See patient instructions. Stanley Newby DO [address] [place] [address] CNOV Observed: 10/31/2017 Status: COMPLETED Source: [place] 8:40 AM [facility] REPOSITORY Office Visit (FAMPWS) RONNIE DANGELO ([id number]) 1970 F D Date Time Provider Department 10/31/17 8:40 AM STANLEY NEWBY FAMKeilyWS During your visit today, we recorded the following information about you: Temperature Pulse Respiration Blood pressure 98.3 degrees 80/minute 16/minute 116/70 Weight 103.4 kg Stanley Newby DO 11/01/2017 6:59 AM Signed CC: Ronnie Dangelo is a 46 year old female who presents to the office for 6 months follow up HPI: Rash on face, started on face about 2-3 days ago, also area on upper back, slightly itchy, red. Had done some vine removal last week. b/l foot pain, hx of plantar fasciitis on left foot, right Is greater pain now, stands at lot at her job, has old tennis shoes but has put in shoe inserts with mild relief, no regular icing or stretching. Mood, hx of depression, stable HPL, hasn't had recently rechecked Heartburn, acid reflux symptoms daily, not just food triggered, no nausea or bowel changes or blood in stool, no vomiting or dysphagia Diastasis rectus, working with surgeon to get approved for repair with insurance PAST MEDICAL HISTORY Diagnosis Date - Diastasis of rectus abdominis 12/11/2015 - Dysthymic disorder Depression (non-psychotic) - Genital herpes, unspecified 01/09/2007 - HSV (herpes simplex virus) anogenital infection 1990 - Hypercholesteremia 05/2015 - Onychomycosis - SHAINA (obstructive sleep apnea) 04/13/2017 PAST SURGICAL HISTORY Procedure Laterality Date - APPENDECTOMY - REVISE MEDIAN N/CARPAL TUNNEL SURG Right 09/13/2016 - THYROID LEFT FINE NEEDLE ASPIRATION 08/02/07 U/ S FNA left thyroid nodule - THYROID LOBECTOMY,UNILAT 08/31/07 LEFT - VAGINAL HYSTERECTOMY 12/01/09 [facility] for fibroid, menorrhagia, adenomyosis Current Outpatient Prescriptions: venlafaxine ER (EFFEXOR XR) 150 mg 24 hr capsule Take 1 capsule by mouth once daily. calcium carbonate-vitamin D3 500mg (1,250mg) -600 unit tab Take 1 tablet by mouth twice daily. fluticasone (FLONASE) 50 mcg/actuation nasal spray Use 2 Sprays in each nostril once daily. Rinse mouth after use. levothyroxine (LEVOTHROID) 75 mcg tablet Take 1 tablet by mouth daily before breakfast. COMPOUNDED PRESCRIPTION CPAP Supplies; hose; mask DX: SHAINA CPAP Initiate CPAP @ 10 cm of water with humidification. Mask (per patient preference) optional chin strap (if indicated) , filters, tubing, humidifier and lifetime supplies. omeprazole (PRILOSEC) 20 mg capsule Take 1 capsule by mouth daily before breakfast. 1/2 hr before meal. COMPOUNDED PRESCRIPTION Powerstep full length originalDx: plantar fasciitis cholecalciferol (VITAMIN D3) 2,000 unit tablet Take 1 tablet by mouth once daily. traZODone (DESYREL) 50 mg tablet Take 1 tablet by mouth daily at bedtime. multivitamins(DAILY VITAMIN TAB) Take one(1) tablet daily. aspirin 325 mg tablet Take 325 mg by mouth once daily. No current facility-administered medications for this visit. ALLERGIES Allergen Reactions - Prozac [Fluoxetine * Other: See Comments Aggressive behavior, emotional Social History Marital status: Spouse name: SHANE Years of education: 12 Number of children: 3 Occupational History Occupation Employer Comment not employed Social History Main Topics Smoking status: Never Smoker Smokeless tobacco: Never Used Alcohol use: No Drug use: No Sexual activity: Yes Partners with: Male control/protection: Vasectomy ROS: See HPI PE: BP 116/70 Pulse 80 Temp (Src) 98.3 (Left Tympanic) Resp 16 Wt 228 lb (103.4kg) LMP 11/16/2009 Gen: AANDOX3, NAD, non-toxic appearing HEENT: PERRLA, EOMs intact b/l, nares without drainage, pharynx without erythema, exudate, lesions, or drainage. Uvula midline. Neck: No LAD, no thyromegaly, no meningismus. CV: RRR, no murmur Lungs: CTA b/l, no wheezing Skin: erythematous papulovesicular rash around right cheek and supeiror and inferior orolabial areas as well as left upper back and right forearm TTP plantar surface of heel on right >left Diastasis recti abd muscles ASSESSMENT/PLAN: 1. Rhus dermatitis - ICD9: 692.6, ICD10: L23.7 (primary diagnosis) - discussed skin care of rash - follow up if symptoms persist or worsen. - TRIAMCINOLONE ACETONIDE 0.1 % TOPICAL CREAM - PREDNISONE 10 MG TABLET 2. Gastroesophageal reflux disease without esophagitis - ICD9: 530.81, ICD10: K21.9 - Discussed lifestyle modifications including losing weight, limiting caffeine, no meals three hours before sleep and head of bed elevation - Begin treatment with Protonix 40 mg qday - PANTOPRAZOLE 40 MG TABLET,DELAYED RELEASE 3. Belching - ICD9: 787.3, ICD10: R14.2 - see above - PANTOPRAZOLE 40 MG TABLET,DELAYED RELEASE 4. Plantar fasciitis - ICD9: 728.71, ICD10: M72.2 - stretches and icing and follow up with filling winder if heel cups and these conservative measures without improvement 5. Mixed hyperlipidemia - ICD9: 272.2, ICD10: E78.2 - to be determined upon return of lab results - Continue current medication. - Encouraged following a low fat, low cholesterol diet. - Discussed the benefits of regular aerobic exercise and weight loss. - Check fasting lipid panel - LIPID PANEL BASIC 6. Elevated fasting glucose - ICD9: 790.21, ICD10: R73.01 - HGB A1C 7. Vitamin D deficiency - ICD9: 268.9, ICD10: E55.9 - continue supplement 8. SHAINA (obstructive sleep apnea) - ICD9: 327.23, ICD10: G47.33 - continue CPAP- 9. Diastasis of rectus abdominis - ICD9: 728.84, ICD10: M62.08 - f/u with surgeon Stanley Newby DO Return if no improvement. Follow up with Stanley Newby DO. Discussed risks, benefits, alternatives, and potential side effects of medications. Patient/Guardian expressed understanding and agreed with the plan. See patient instructions. Stanley Newby DO [address] [place] [address] Stanley Newby DO 10/31/2017 9:15 AM Signed Ice massage the bottom of the foot with frozen water bottle 10 min twice a day and get heel cup over the counter to put in your shoe, Try New Balance shoes. Referring Provider: SELF [[id number]] Allergies As of Date: 10/31/2017 Noted Allergy Reaction PROZAC (FLUOXETINE HCL) 07/14/2011 14 - Other: See Comments Comments: Aggressive behavior, emotional Date Reviewed: 10/31/2017 Reviewed by: Johanna Rollins LPN - Fully Assessed Reason for Visit: Follow Up [171] Cmt: 6 months Primary Visit Diagnosis:Rhus dermatitis [L23.7] Other Visit Diagnoses:Gastroesophageal reflux disease without esophagitis [K21.9] Belching [R14.2] Plantar fasciitis [M72.2] Mixed hyperlipidemia [E78.2] Elevated fasting glucose [R73.01] Vitamin D deficiency [E55.9] SHAINA (obstructive sleep apnea) [G47.33] Diastasis of rectus abdominis [M62.08] Order(s):triamcinolone acetonide (KENALOG) 0.1 % creamApply 1 application to affected area three times daily as needed. Apply sparingly to area for rash/itching. As neededDisp: 30 gRfl: 1 predniSONE (DELTASONE) 10 mg tabletTake 4 tabs daily for 3 days, then 2 tabs daily for 3 days, then 1 tab daily for 3 days with food.Disp: 21 tabletRfl: [address] (PROTONIX) 40 mg tabletTake 1 tablet by mouth once daily.Disp: 30 tabletRfl: 3 HGB A1C [[id number]] Order #: [id number] FUTURE LIPID PANEL BASIC [SQLIPB] Order #: [id number] FUTURE Prescriptions as of 10/31/2017 Sig: VENLAFAXINE ER 150 MG CAPSULE* Take 1 capsule by mouth once * CALCIUM CARBONATE-VITAMIN D3 * Take 1 tablet by mouth twice * FLUTICASONE 50 MCG/ACTUATION * Use 2 Sprays in each nostril * LEVOTHYROXINE 75 MCG TABLET Take 1 tablet by mouth daily * COMPOUNDED PRESCRIPTION CPAP Supplies; hose; mask * CPAP Initiate CPAP @ 10 cm of wate* COMPOUNDED PRESCRIPTION Powerstep full length origina* CHOLECALCIFEROL (VITAMIN D3) * Take 1 tablet by mouth once d* TRAZODONE 50 MG TABLET Take 1 tablet by mouth daily * * DAILY VITAMIN TABLET Take one(1) tablet daily. TRIAMCINOLONE ACETONIDE 0.1 %* Apply 1 application to affect* PREDNISONE 10 MG TABLET Take 4 tabs daily for 3 days,* PANTOPRAZOLE 40 MG TABLET,DEL* Take 1 tablet by mouth once d* ASPIRIN 325 MG TABLET Take 325 mg by mouth once enmanuel* Medication notes this encounter ASPIRIN 325 MG TABLET >> Johanna Rollins LPN 10/31/2017 8:52 AM >> JOHANNA ROLLINS LPN TueOct 31, 2017 8:52 AM Finished Problem List As Of Date 10/31/2017 Noted Resolved SUPERVIS OTHER NORMAL PREG [Z34.80] INVALID FOR*03/14/2007 AMA MULTIGRAVID-ANTEPARTUM [O09.529] INVALID FOR*03/14/2007 Genital herpes, unspecified [A60.00] INVALID FOR*09/10/2016 Non-toxic nodular goiter [E04.9] INVALID FOR* KARLOS'S DISEASE OR STRUMA [E06.3] INVALID FOR* Abdominal pain, lower [R10.30] INVALID FOR*07/14/2011 Menorrhagia [N92.0] INVALID FOR*07/14/2011 Enlarged uterus [N85.2] INVALID FOR*07/14/2011 Pelvic pain INVALID FOR*07/14/2011 Anxiety [F41.9] INVALID FOR* Panic attack [F41.0] INVALID FOR* Diastasis of rectus abdominis [M62.08] INVALID FOR*04/13/2017 Carpal tunnel syndrome, bilateral [G56.03] INVALID FOR* Gastroesophageal reflux disease without esophag*INVALID FOR* Medication monitoring encounter [Z51.81] INVALID FOR*04/13/2017 SHAINA (obstructive sleep apnea) [G47.33] INVALID FOR* Mixed hyperlipidemia [E78.2] INVALID FOR* Obesity, Class II, BMI 35-39.9 [E66.9] INVALID FOR* Other instructions from your clinician: Ice massage the bottom of the foot with frozen water bottle 10 min twice a day and get heel cup over the counter to put in your shoe, Try [employer] shoes. Prescriptions ordered this encounter Disp Refills Start End TRIAMCINOLONE ACETONIDE 0.1 % TOPICA* 30 g 1 10/31/2017 Route: TOPICAL Sig: Apply 1 application to affected area three times daily as needed. Apply sparingly to area for rash/itching. As needed PREDNISONE 10 MG TABLET 21 t* 0 10/31/2017 11/09/2017 Sig: Take 4 tabs daily for 3 days, then 2 tabs daily for 3 days, then 1 tab daily for 3 days with food. PANTOPRAZOLE 40 MG TABLET,DELAYED RE* 30 t* 3 10/31/2017 Route: ORAL Sig: Take 1 tablet by mouth once daily. Medications Discontinued During This Encounter omeprazole (PRILOSEC) 20 mg capsule 90 c* 3 05/17/2017 10/31/2017 Route: ORAL Sig: Take 1 capsule by mouth daily before breakfast. 1/2 hr before meal. Disc: Reason for discontinue is not on file. Encounter Status:Closed by STANLEY NEWBY DO on 11/01/17 CNPTOLASHAWN Observed: 10/18/2017 Status: COMPLETED Source: [place] 12:00 AM [facility] REPOSITORY Patient Outreach (FAMPST) RONNIE DANGELO ([id number]) 1970 F BLD Date Time Provider Department 10/18/17 STANLEY NEWBY FAMPST During your visit today, we recorded the following information about you: Allergies As of Date: 10/18/2017 Noted Allergy Reaction PROZAC (FLUOXETINE HCL) 07/14/2011 14 - Other: See Comments Comments: Aggressive behavior, emotional Date Reviewed: 08/29/2017 Reviewed by: Graciela Waters LPN - Fully Assessed Visit Diagnosis:Medication management [Z79.899] Order(s):LIPID PANEL BASIC [SQLIPB] Order #: [id number] FUTURE Prescriptions as of 10/18/2017 Sig: VENLAFAXINE ER 150 MG CAPSULE* Take 1 capsule by mouth once * CALCIUM CARBONATE-VITAMIN D3 * Take 1 tablet by mouth twice * FLUTICASONE 50 MCG/ACTUATION * Use 2 Sprays in each nostril * LEVOTHYROXINE 75 MCG TABLET Take 1 tablet by mouth daily * COMPOUNDED PRESCRIPTION CPAP Supplies; hose; mask * CPAP Initiate CPAP @ 10 cm of wate* X OMEPRAZOLE 20 MG CAPSULE,MACIEJ* Take 1 capsule by mouth daily* COMPOUNDED PRESCRIPTION Powerstep full length origina* CHOLECALCIFEROL (VITAMIN D3) * Take 1 tablet by mouth once d* ASPIRIN 325 MG TABLET Take 325 mg by mouth once enmanuel* X TRAZODONE 50 MG TABLET Take 1 tablet by mouth daily * * DAILY VITAMIN TABLET Take one(1) tablet daily. Problem List As Of Date 10/18/2017 Noted Resolved SUPERVIS OTHER NORMAL PREG [Z34.80] INVALID FOR*03/14/2007 AMA MULTIGRAVID-ANTEPARTUM [O09.529] INVALID FOR*03/14/2007 Genital herpes, unspecified [A60.00] INVALID FOR*09/10/2016 Non-toxic nodular goiter [E04.9] INVALID FOR* KARLOS'S DISEASE OR STRUMA [E06.3] INVALID FOR* Abdominal pain, lower [R10.30] INVALID FOR*07/14/2011 Menorrhagia [N92.0] INVALID FOR*07/14/2011 Enlarged uterus [N85.2] INVALID FOR*07/14/2011 Pelvic pain INVALID FOR*07/14/2011 Anxiety [F41.9] INVALID FOR* Panic attack [F41.0] INVALID FOR* Diastasis of rectus abdominis [M62.08] INVALID FOR*04/13/2017 Carpal tunnel syndrome, bilateral [G56.03] INVALID FOR* Gastroesophageal reflux disease without esophag*INVALID FOR* Medication monitoring encounter [Z51.81] INVALID FOR*04/13/2017 SHAINA (obstructive sleep apnea) [G47.33] INVALID FOR* Mixed hyperlipidemia [E78.2] INVALID FOR* Obesity, Class II, BMI 35-39.9 [E66.9] INVALID FOR* Encounter Status:Closed by NICHOLAS PRODUSER on 01/20/18 PLASTIC SURGERY Observed: 10/01/2017 Status: F Source: [place] VISIT REPORT 1:41 AM [facility] REPOSITORY [facility] [address] [place] [address] OFFICE VISIT Date of Service: 08/11/17 MR#: [id number] Acct: [id number] Name: RONNIE DANGELO Rep #: [id number] : 1970 Provider: Freddie Lawson MD Age/Sex: 46/F Location: [facility] Status: Signed Intake Vital Signs08/11/17 Height 5 ft 5.25 in 08/11/17 Weight: 228 lb Intake Visit Reasons: evaluation abdominal wall contouring [employer] Required: No Accompanied by: None Is patient in pain?: Yes (BACK PAIN DUE TO ABDOMINAL WALL ISSUES) Allergies fluoxetine HCl [From Prozac] Adverse Reaction (Verified 08/11/17 13:43) Other Medications Calcium Carbonate/Vitamin D3 [Calcium 500-Vit D3 200 Tablet] 1 ea PO DAILY 11/03/15 [History Confirmed 07/26/17] Levothyroxine [Synthroid] 75 mcg PO DAILY 11/03/15 [History Confirmed 07/26/17] Multivitamin [Daily Multiple Vitamin] 1 ea PO DAILY 11/03/15 [History Confirmed 07/26/17] Trazodone HCl 50 mg PO QHS 11/03/15 [History Confirmed 07/26/17] Venlafaxine XR [Effexor Xr] 150 mg PO DAILY 11/03/15 [History Confirmed 07/26/17] aspirin 325 mg tablet 325 mg PO QDAY 07/26/17 [History Confirmed 07/26/17] omeprazole 20 mg capsule,delayed release 20 mg PO QDAY 07/26/17 [History Confirmed 07/26/17] PFSH Medical History Anemia (Acute) Carpal tunnel syndrome (Acute) Depression (Acute) Diastasis of rectus abdominis (Acute 12/2015) Dysthymic disorder (Acute) Frequent headaches (Acute) GERD (gastroesophageal reflux disease) (Acute) Genital herpes in women (Acute 01/2007) HSV (herpes simplex virus) anogenital infection (Acute) Hypercholesteremia (Acute 05/2015) SHAINA (obstructive sleep apnea) (Acute 04/2017) Onychomycosis (Acute) Vision problems (Acute) Vitamin D deficiency (Acute) Surgical History History of appendectomy (Acute) History of carpal tunnel surgery of right wrist (Acute 09/2016) History of thyroid nodule (Acute 07/2007) History of thyroid surgery (Acute 08/2007) History of vaginal hysterectomy (Acute 11/2009) Family History Mother Anesthesia complication High cholesterol Thyroid disorder Father Anxiety Depression Diabetes High cholesterol CVA (cerebral vascular accident) Sister Thyroid disorder Grandmother Breast cancer Cancer Grandfather Cancer Social History household members: spouse number of children: 3 current occupational status: unemployed Smoking Status: Never smoker alcohol intake: never substance use type: does not use additional social history: CONTROL/PROTECTION: HAD VASECTOMY AND SHE HAS HAD A HYSTERECTOMY HPI evaluation abdominal wall contouring: Details: HISTORY OF PRESENT ILLNESS 46 year old woman presents for evaluation of abdominal wall contouring. She has had four pregnancies in the past and has developed a diastasis of her abdominal recti muscles. This anterior abdominal wall weakness has exacerbated her lumbar region with lumbar back pain. She has tried PT in the past, but the pain persisted. She has developed an abdominal panniculus with panniculitis. She has developed abdominal wall skin crease intertrigo for which she uses powders for relief. With the associated lumbar back pain, she has changed the way she ambulates, and this has led to plantar fasciitis. Today she denies any pain. She denies any nausea and vomiting. REVIEW OF SYSTEMS General - Denies fever and weight loss. Has fatigue. Eyes - Denies cataracts and glaucoma. ENT - Denies nasal congestion and sore throat. Endocrine - Has excessive thirst and urination. Has heat and cold intolerance. Has thyroid disease. Skin - Denies suspicious lesions and skin cancer. Has abdominal wall skin crease intertrigo. Musculoskeletal - Has joint pain, joint stiffness, lumbar back pain. Denies weakness of muscles and joints and arthritis. Neuro - Has headaches. Cardiovascular - Denies chest pain, fatigue, and shortness of breath with exertion. Psych - Denies anxiety. Has depression. Respiratory - Denies chronic cough. Has shortness of breath. Gastrointestinal - Denies nausea, vomiting, diarrhea. Has constipation. Hematologic - Denies abnormal bruising and bleeding. Genitourinary - Denies hematuria and urinary frequency. PHYSICAL EXAM General - Alert and Oriented HEENT - PERRL. EOMI. Throat is clear. Neck - Supple and nontender. No cervical adenopathy. Lungs - Clear to auscultation. Heart - Regular rate and rhythm. Abdomen - Soft and nondistended. No ventral hernias noted. No abdominal wall scars. Her appendectomy was done laparoscopically. Diastasis of abdominal recti muscles noted. Abdominal panniculus with panniculitis. No palpable masses. No evidence of infection at this time. No active abdominal wall skin crease noted at this time. Some skin laxity noted. Extremities - FROM. No axillary adenopathy. Radial pulses are palpable. Neuro - CN II-XII grossly intact. Psych - Normal mood and affect. ASSESSMENT 1. Diastasis of abdominal recti muscles. 2. Permanent overstretching of lower anterior abdominal wall from previous . 3. Abdominal panniculus with panniculitis. 4. Lumbar back pain. 5. Abdominal wall skin crease intertrigo. PLAN Discussed the various treatments for abdominal wall contouring. With her degree of diastasis, lipoplasty by itself would not be beneficial. Would recommend at least a panniculectomy to decrease the weight anteriorly that may improve some of her lumbar back pain. Also repair of her diastasis of her abdominal recti muscles would help to tighten her core which should improve her lumbar back pain. this is usually done with a completion abdominoplasty. Will write a letter to her insurance company for medical approval. If the insurance only approves the panniculectomy, may leave the wound open initially at the time of surgery. Postop would place the VAC for wound care. After discharge, would [facility]up [facility]. After 4-6 weeks, can re-evaluate for possible delayed secondary wound closure. Would have drains in for a couple of weeks. Would need an abdominal wall binder for several weeks. Surgery would be under general anesthesia with a surgical observation overnight stay in the hospital. By strengthening her core and helping her ambulate better, this surgery may or may not help her plantar fasciitis. Patient was informed of the risks and complications of the procedure including alternatives to surgery. These were discussed with the patient personally. Patient voices understanding and wishes to proceed with the current plan of obtaining medical approval and then proceeding with surgery. After medical approval, she will return for a preop visit to answer any remaining questions that she may have as well as to sign her consent forms. Assessment AND Plan Problems 1. Diastasis of rectus abdominis M62.08 2. Skin laxity L57.4 3. Abdominal panniculus E65 4. Panniculitis M79.3 5. Intertrigo L30.4 6. Low back pain M54.5 Coding Level of Care Code Off vis,new,level 4 Diagnoses Diastasis of rectus abdominis M62.08 Skin laxity L57.4 Abdominal panniculus E65 Panniculitis M79.3 Intertrigo L30.4 Low back pain M54.5 10/01/17 0141 <Electronically signed by Freddie Lawson MD> Date Freddie Lawson MD Cosigner Signature: Date (if applicable) CC: Stanley Mosqueda DO CBC AND DIFFERENTIAL Collected: 08/29/2017 Status: F Source: [place] 12:06 PM [facility] TYPE CODE TESTS RESULT OUT OF REFERENCE UNITS RANGE LAB WBC 3.70-11.00 k/uL WBC 6.23 LAB RBC 3.90-5.20 m/uL RBC 4.29 LAB HGB 11.5-15.5 g/dL Hemoglobin 13.4 LAB HCT 36.0-46.0 % Hematocrit 40.5 LAB MCV 80.0-100.0 fL MCV 94.4 LAB MCH 26.0-34.0 pG MCH 31.2 LAB MCHC 30.5-36.0 g/dL MCHC 33.1 LAB RDWCV 11.5-15.0 % RDW-CV 13.2 LAB PLTCT 150-400 k/uL Platelet Count 235 LAB MPV 9.0-12.7 fL Low MPV 8.6 LAB ANEUT % Neut% 56.0 LAB AANEUT 1.45-7.50 k/uL Abs Neut 3.49 LAB ALYMP % Lymph% 33.2 LAB AALYMP 1.00-4.00 k/uL Abs Lymph 2.07 LAB AMONO % [place]% 8.7 LAB AAMONO <0.87 k/uL Abs [place] 0.54 LAB AEOS % Eosin% 1.6 LAB AAEOS <0.46 k/uL Abs Eosin 0.10 LAB ABASO % Baso% 0.5 LAB AABASO <0.11 k/uL Abs Baso 0.03 LAB AUNRBC 0 /100 WBC NRBCs 0.0 LAB ABNRBC <0.01 k/uL Absolute nRBC <0.01 LAB DTYP DTYPE Auto Diff Performed By: #### CBCDIF, FSH, LH, FT4, T3, CMP, HCGQT, TSH, VITD #### [facility] [place], [place] [address] FSH Collected: 08/29/2017 Status: F Source: [place] 12:06 PM [facility] REPOSITORY TYPE CODE TESTS RESULT OUT OF RANGE REFERENCE UNITS LAB FSH mU/mL FSH 4.1 Result Comment: Reference range: Follicular: 2-11 Midcycle: 10-30 Luteal: 1-9 Post Liv: 20-100 Performed By: #### CBCDIF, FSH, LH, FT4, T3, CMP, HCGQT, TSH, VITD #### [facility] [address] [place] [address] LH Collected: 08/29/2017 Status: F Source: [facility] 12:06 PM [facility] REPOSITORY TYPE CODE TESTS RESULT OUT OF RANGE REFERENCE UNITS LAB LH mU/mL LH 2.1 Result Comment: Reference range: Follicular: 1-12 Midcycle: 20-90 Luteal: 1-10 Post Stanley: >20 Performed By: #### CBCDIF, FSH, LH, FT4, T3, CMP, HCGQT, TSH, VITD #### [place] [id number] FREE T4 Collected: 08/29/2017 Status: F Source: [place] 12:06 PM [facility] REPOSITORY TYPE CODE TESTS RESULT OUT OF RANGE REFERENCE UNITS LAB FT4 0.9-1.7 ng/dL Free T4 0.9 Performed By: #### CBCDIF, FSH, LH, FT4, T3, CMP, HCGQT, TSH, VITD #### [facility] [address] [place] [address] T3 Collected: 08/29/2017 Status: F Source: [facility] 12:06 PM [facility] REPOSITORY TYPE CODE TESTS RESULT OUT OF RANGE REFERENCE UNITS LAB T3 79-165 ng/dL T3 141 Performed By: #### CBCDIF, FSH, LH, FT4, T3, CMP, HCGQT, TSH, VITD #### [place] [id number] COMP METABOLIC PANEL Collected: 08/29/2017 Status: F Source: [place] 12:06 PM [facility] REPOSITORY TYPE CODE TESTS RESULT OUT OF REFERENCE UNITS RANGE LAB TP 6.3-8.0 g/dL Protein, Total 7.6 LAB ALB 3.9-4.9 g/dL Albumin 4.2 LAB CA 8.5-10.2 mg/dL Calcium, Total 9.0 LAB TBIL 0.2-1.3 mg/dL Bilirubin, Total 0.2 LAB ALKP 32-117 U/L Alkaline Phosphatase 58 LAB AST 13-35 U/L AST 22 LAB GLU 74-99 mg/dL Glucose 99 Result Comment: The [place] Diabetes [employer] (ADA) provides guidance for cutoff values for fasting glucose and random glucose. The ADA defines fasting as no caloric intake for at least 8 hours. Fas ting plasma glucose results between 100 to 125 mg/dL indicate increased risk for diabetes (prediabetes). Fasting plasma glucose results greater than or equal to 126 mg/dL meet the criteria for diagnosis of diabetes. In the absence of unequivocal hyperglycemia, results should be confirmed by repeat testing. In a patient with classic symptoms of hyperglycemia or hyperglycemic crisis, random plasma glucose results greater than or equal to 200 mg/dL meet the criteria for diagnosis of diabetes. Reference: Standards of Medical Care in Diabetes 2016, [place] [employer] Association. Diabetes Care. 2016.39(Suppl 1). LAB BUN 7-21 mg/dL BUN 9 LAB CRET 0.58-0.96 mg/dL Creatinine 0.76 LAB NA 136-144 mmol/L Sodium 140 LAB K 3.7-5.1 mmol/L Potassium 4.2 LAB CL 97-105 mmol/L Chloride 103 LAB CO2 22-30 mmol/L CO2 22 LAB AGAP 9-18 mmol/L Anion Gap 15 LAB ALT 7-38 U/L ALT 25 LAB GFRAA eGFR- Amer. >60 LAB GFRNAA . eGFR-All Other Races >60 Result Comment: eGFR (Estimated GFR) Units of measure: mL/min/1.73 meters squared eGFR is derived from the reexpressed MDRD Study equation using the following parameters: serum creatinine, age, gender and race. The creatinine assay has been calibrated to be traceable to IDMS. An eGFR <60 mL/min/1.73m2 for >3 months is consistent with chronic kidney disease. Refer to KDOQI guidelines for clinical interpretation. In patients with unstable renal function, e.g. those with acute kidney injury, the eGFR may not accurately reflect actual GFR. Performed By: #### CBCDIF, FSH, LH, FT4, T3, CMP, HCGQT, TSH, VITD #### [facility] [address] [place], [place] [address] HCG, QUANTITATIVE BL Collected: 08/29/2017 Status: F Source: [place] 12:06 PM [facility] REPOSITORY TYPE CODE TESTS RESULT OUT OF REFERENCE UNITS RANGE LAB HCGQT <5.0 mU/mL HCG, Quantitative Bl <0.1 Result Comment: NEGATIVE Performed By: #### CBCDIF, FSH, LH, FT4, T3, CMP, HCGQT, TSH, VITD #### [facility] [address] [place] [id number] TSH Collected: 08/29/2017 Status: F Source: [place] 12:06 PM [facility] REPOSITORY TYPE CODE TESTS RESULT OUT OF RANGE REFERENCE UNITS LAB TSH 0.400-5.500 uU/mL TSH 0.891 Result Comment: If the patient is , TSH reference range varies by gestational period: First Trimester 0.100-2.500 uU/mL Second Trimester 0.200-3.000 uU/mL Third Trimester 0.300-3.000 uU/mL References: 1. Adkins L, Nahomi M, Zaire EK, et al. Management of Thyroid Dysfunction during and : An Endocrine Society Clinical Practice Guideline. J Clin Endocrinol Metab, 2012:97:6184-7938. 2. Adria GLASGOW. Overview of thyroid disease in . UpToDate. 2016. Accessed on September 26, 2015. Performed By: #### CBCDIF, FSH, LH, FT4, T3, CMP, HCGQT, TSH, VITD #### [facility] [address] [place] [id number] VITAMIN D 25 HYDROXY Collected: 08/29/2017 Status: F Source: [place] 12:06 PM [facility] REPOSITORY TYPE CODE TESTS RESULT OUT OF REFERENCE UNITS RANGE LAB VITD 31.0-80.0 ng/mL Vitamin D 25 34.0 Hydroxy Result Comment: Classification of 25 [place] Vitamin D status: Insufficiency/Moderate Deficiency: < or = 30 ng/mL Sufficiency/Optimal Levels: 31 to 80 ng/mL Toxicity: > 100 ng/mL Test performed by chemiluminescent immunoassay. Performed By: #### CBCDIF, FSH, LH, FT4, T3, CMP, HCGQT, TSH, VITD #### [facility] [address] [place], [place] [id number] PROGRESS Observed: 08/29/2017 Status: COMPLETED Source: [place] 11:44 AM [facility] REPOSITORY HNO ID: [id number] Author: Flower Erazo Service: (none) Author Type: Nurse Practitioner Type: Progress Notes Filed: 08/29/2017 11:50 AM Note Text: HPI/CC: Ronnie Dangelo is a 46 year old female who presents for Fatigue; mood swings; not sleeping well; and hot flashes x 1 month- concerned for menopause. Patient's last menstrual period was 11/16/2009. D/t hysterectomy Unknown age of mother at onset of menopause c/o ear chronic congestion. Recently treated for OM x 2 ROS as above, otherwise non-contributory. Reviewed PMHx, PSHx, social Hx, medications and allergies. PHYSICAL EXAMINATION: BP 110/72 Pulse 88 Resp 16 Wt 103.4 kg (228 lb) LMP 11/16/2009 BMI 39.17 kg/m? General appearance: Well appearing, alert, in no acute distress, well-hydrated, well nourished. Skin: Skin color, texture, turgor normal, no suspicious rashes or lesions Ears: External ears normal, canals clear Lungs: Lungs clear to auscultation. No wheezing, rhonchi, rales Heart: RRR without murmur, gallop, or rubs. No ectopy ASSESSMENT/PLAN: 1. Mood swings (HCC) - ICD9: 296.99, ICD10: F39 (primary diagnosis) - HCG QUANTITATIVE - TSH BLD - T3 BLD - T4 FREE/FREE THYROX - COMP METABOLIC PANEL - LUTEINIZING HORMONE - FSH BLD - CBC + DIFF 2. SHAINA (obstructive sleep apnea) - ICD9: 327.23, ICD10: G47.33 - CBC + DIFF - continue CPAP 3. Non-toxic nodular goiter - ICD9: 241.9, ICD10: E04.9 - HCG QUANTITATIVE - TSH BLD - T3 BLD - T4 FREE/FREE THYROX - COMP METABOLIC PANEL - LUTEINIZING HORMONE - FSH BLD - CBC + DIFF 4. Primary insomnia - ICD9: 307.42, ICD10: F51.01 - HCG QUANTITATIVE - TSH BLD - T3 BLD - T4 FREE/FREE THYROX - COMP METABOLIC PANEL - LUTEINIZING HORMONE - FSH BLD - CBC + DIFF 5. Fatigue, unspecified type - ICD9: 780.79, ICD10: R53.83 - HCG QUANTITATIVE - TSH BLD - T3 BLD - T4 FREE/FREE THYROX - COMP METABOLIC PANEL - LUTEINIZING HORMONE - FSH BLD - CBC + DIFF - VITAMIN D 25 HYDROXY Flower Erazo APRN.CNP CNOV Observed: 08/29/2017 Status: COMPLETED Source: [place] 10:40 AM [facility] REPOSITORY Office Visit (FAMPWS) RONNIE DANGELO ([id number]) 1970 F BLD Date Time Provider Department 08/29/17 10:40 AM FLOWER ERAZO (JENA) FAMPWS During your visit today, we recorded the following information about you: Pulse Respiration Blood pressure Weight 88/minute 16/minute 110/72 103.4 kg Flower Erazo APRN.CNP 08/29/2017 11:50 AM Signed HPI/CC: Ronnie Dangelo is a 46 year old female who presents for Fatigue; mood swings; not sleeping well; and hot flashes x 1 month- concerned for menopause. Patient's last menstrual period was 11/16/2009. D/t hysterectomy Unknown age of mother at onset of menopause c/o ear chronic congestion. Recently treated for OM x 2 ROS as above, otherwise non-contributory. Reviewed PMHx, PSHx, social Hx, medications and allergies. PHYSICAL EXAMINATION: BP 110/72 Pulse 88 Resp 16 Wt 103.4 kg (228 lb) LMP 11/16/2009 BMI 39.17 kg/m? General appearance: Well appearing, alert, in no acute distress, well-hydrated, well nourished. Skin: Skin color, texture, turgor normal, no suspicious rashes or lesions Ears: External ears normal, canals clear Lungs: Lungs clear to auscultation. No wheezing, rhonchi, rales Heart: RRR without murmur, gallop, or rubs. No ectopy ASSESSMENT/PLAN: 1. Mood swings (HCC) - ICD9: 296.99, ICD10: F39 (primary diagnosis) - HCG QUANTITATIVE - TSH BLD - T3 BLD - T4 FREE/FREE THYROX - COMP METABOLIC PANEL - LUTEINIZING HORMONE - FSH BLD - CBC + DIFF 2. SHAINA (obstructive sleep apnea) - ICD9: 327.23, ICD10: G47.33 - CBC + DIFF - continue CPAP 3. Non-toxic nodular goiter - ICD9: 241.9, ICD10: E04.9 - HCG QUANTITATIVE - TSH BLD - T3 BLD - T4 FREE/FREE THYROX - COMP METABOLIC PANEL - LUTEINIZING HORMONE - FSH BLD - CBC + DIFF 4. Primary insomnia - ICD9: 307.42, ICD10: F51.01 - HCG QUANTITATIVE - TSH BLD - T3 BLD - T4 FREE/FREE THYROX - COMP METABOLIC PANEL - LUTEINIZING HORMONE - FSH BLD - CBC + DIFF 5. Fatigue, unspecified type - ICD9: 780.79, ICD10: R53.83 - HCG QUANTITATIVE - TSH BLD - T3 BLD - T4 FREE/FREE THYROX - COMP METABOLIC PANEL - LUTEINIZING HORMONE - FSH BLD - CBC + DIFF - VITAMIN D 25 HYDROXY Flower Erazo APRN.[employer] Referring Provider: SELF [200] Allergies As of Date: 08/29/2017 Noted Allergy Reaction PROZAC (FLUOXETINE HCL) 07/14/2011 14 - Other: See Comments Comments: Aggressive behavior, emotional Date Reviewed: 08/29/2017 Reviewed by: Graciela Waters LPN - Fully Assessed Reason for Visit: Fatigue [46] mood swings [Other] not sleeping well [Other] hot flashes [Other] Primary Visit Diagnosis:Mood swings (HCC) [F39] Other Visit Diagnoses:SHAINA (obstructive sleep apnea) [G47.33] Non-toxic nodular goiter [E04.9] Primary insomnia [F51.01] Fatigue, unspecified type [R53.83] Order(s):HCG QUANTITATIVE [SQHCGQT] Order #: [id number] FUTURE TSH BLD [SQTSH] Order #: [id number] FUTURE T3 BLD [SQT3] Order #: [id number] FUTURE T4 FREE/FREE THYROX [SQFT4] Order #: [id number] FUTURE COMP METABOLIC PANEL [SQCMP] Order #: [id number] FUTURE LUTEINIZING HORMONE [SQLH] Order #: [id number] FUTURE FSH BLD [SQFS] Order #: [id number] FUTURE CBC + DIFF [SQCBCDIF] Order #: [id number] FUTURE VITAMIN D 25 HYDROXY [SQVITD] Order #: [id number] FUTURE Prescriptions as of 08/29/2017 Sig: FLUTICASONE 50 MCG/ACTUATION * Use 2 Sprays in each nostril * LEVOTHYROXINE 75 MCG TABLET Take 1 tablet by mouth daily * COMPOUNDED PRESCRIPTION CPAP Supplies; hose; mask * CPAP Initiate CPAP @ 10 cm of wate* OMEPRAZOLE 20 MG CAPSULE,MACIEJ* Take 1 capsule by mouth daily* COMPOUNDED PRESCRIPTION Powerstep full length origina* CHOLECALCIFEROL (VITAMIN D3) * Take 1 tablet by mouth once d* ASPIRIN 325 MG TABLET Take 325 mg by mouth once enmanuel* TRAZODONE 50 MG TABLET Take 1 tablet by mouth daily * VENLAFAXINE ER 150 MG CAPSULE* Take 1 capsule by mouth once * CALCIUM CARBONATE-VITAMIN D3 * Take 1 tablet by mouth twice * * DAILY VITAMIN TABLET Take one(1) tablet daily. Problem List As Of Date 08/29/2017 Noted Resolved SUPERVIS OTHER NORMAL PREG [Z34.80] INVALID FOR*03/14/2007 AMA MULTIGRAVID-ANTEPARTUM [O09.529] INVALID FOR*03/14/2007 Genital herpes, unspecified [A60.00] INVALID FOR*09/10/2016 Non-toxic nodular goiter [E04.9] INVALID FOR* KARLOS'S DISEASE OR STRUMA [E06.3] INVALID FOR* Abdominal pain, lower [R10.30] INVALID FOR*07/14/2011 Menorrhagia [N92.0] INVALID FOR*07/14/2011 Enlarged uterus [N85.2] INVALID FOR*07/14/2011 Pelvic pain INVALID FOR*07/14/2011 Anxiety [F41.9] INVALID FOR* Panic attack [F41.0] INVALID FOR* Diastasis of rectus abdominis [M62.08] INVALID FOR*04/13/2017 Carpal tunnel syndrome, bilateral [G56.03] INVALID FOR* Gastroesophageal reflux disease without esophag*INVALID FOR* Medication monitoring encounter [Z51.81] INVALID FOR*04/13/2017 SHAINA (obstructive sleep apnea) [G47.33] INVALID FOR* Mixed hyperlipidemia [E78.2] INVALID FOR* Obesity, Class II, BMI 35-39.9 [E66.9] INVALID FOR* Letter Text [facility] [address] [place] [address] TO WHOM IT MAY CONCERN: This is to confirm that Ronnie Dangelo had an appointment and was seen at the [facility] in the Department of Family Medicine Flower Erazo CNP on 08/29/2017. Please excuse her from school for the morning. Sincerely yours, Flower Erazo CNP Encounter Status:Closed by FLOWER ERAZO CNP on 08/29/17 PROGRESS Observed: 07/19/2017 Status: COMPLETED Source: [place] 8:35 PM [facility] REPOSITORY HNO ID: [id number] Author: Jorge Harris) Service: (none) Author Type: Nurse Practitioner Type: Progress Notes Filed: 07/19/2017 9:05 PM Note Text: Subjective HPI HPI Ronnie Dangelo is a 46 year old female who presents today for CC of bilateral ear pain. This started 3 days. Has tried otc medicatoin. Symptoms are worsened by nothing. Risk factors recent hx of ETD. .Patient presents with: Ear Pain: bilateral x 3 days PAST MEDICAL HISTORY Diagnosis Date - Diastasis of rectus abdominis 12/11/2015 - Dysthymic disorder Depression (non-psychotic) - Genital herpes, unspecified 01/09/2007 - HSV (herpes simplex virus) anogenital infection 1990 - Hypercholesteremia 05/2015 - Onychomycosis - SHAINA (obstructive sleep apnea) - SHAINA (obstructive sleep apnea) 04/13/2017 PAST SURGICAL HISTORY Procedure Laterality Date - APPENDECTOMY - REVISE MEDIAN N/CARPAL TUNNEL SURG Right 09/13/2016 - THYROID LEFT FINE NEEDLE ASPIRATION 08/02/07 U/ S FNA left thyroid nodule - THYROID LOBECTOMY,UNILAT 08/31/07 LEFT - VAGINAL HYSTERECTOMY 12/01/09 TVH for fibroid, menorrhagia, adenomyosis ALLERGIES Prozac [Fluoxetine Hcl] MEDICATIONS levothyroxine (LEVOTHROID) 75 mcg tablet Take 1 tablet by mouth daily before breakfast. COMPOUNDED PRESCRIPTION CPAP Supplies; hose; mask DX: SHAINA CPAP Initiate CPAP @ 10 cm of water with humidification. Mask (per patient preference) optional chin strap (if indicated) , filters, tubing, humidifier and lifetime supplies. omeprazole (PRILOSEC) 20 mg capsule Take 1 capsule by mouth daily before breakfast. 1/2 hr before meal. COMPOUNDED PRESCRIPTION Powerstep full length originalDx: plantar fasciitis cholecalciferol (VITAMIN D3) 2,000 unit tablet Take 1 tablet by mouth once daily. aspirin 325 mg tablet Take 325 mg by mouth once daily. traZODone (DESYREL) 50 mg tablet Take 1 tablet by mouth daily at bedtime. venlafaxine XR (EFFEXOR XR) 150 mg 24 hr capsule Take 1 capsule by mouth once daily. calcium carbonate-vitamin D3 500mg (1,250mg) -600 unit tab Take 1 tablet by mouth twice daily. multivitamins(DAILY VITAMIN TAB) Take one(1) tablet daily. FAMILY HISTORY Problem Relation Age of Onset - FIBROMYALGIA [OTHER] Mother - Lipids Father - Ischemic Heart Disease Father - Heart Father AK has hole in heart - Stroke Father - Diabetes Father - Stroke Maternal Grandmother - Alzheimer's Disease Maternal Grandmother - Psychiatry Maternal Grandmother DEMENTIA - Breast Cancer Maternal Grandmother - Diabetes Other pcousin - Heart Sister Hole in heart - Thyroid Sister Social History Substance Use Topics - Smoking status: Never Smoker - Smokeless tobacco: Never Used - Alcohol use No Review of Systems Constitutional: Negative for chills, fever and weight loss. HENT: Positive for congestion and sore throat. Negative for ear pain and nosebleeds. Respiratory: Negative for cough, shortness of breath and wheezing. Musculoskeletal: Negative for neck pain. Skin: Negative for itching and rash. Objective Blood pressure 110/72, pulse 76, temperature 36.8 ?C (98.2 ?F), temperature source Tympanic, resp. rate 16, weight 101.6 kg (224 lb), last menstrual period 11/16/2009. Physical Exam Constitutional: She is oriented to person, place, and time and well-developed, well-nourished, and in no distress. Non-toxic appearance. She does not have a sickly appearance. No distress. HENT: Head: Normocephalic and atraumatic. Right Ear: Hearing, external ear and ear canal normal. Tympanic membrane is erythematous and bulging. Tympanic membrane is not perforated. Left Ear: Hearing, tympanic membrane, external ear and ear canal normal. Nose: Nose normal. Mouth/Throat: Uvula is midline, oropharynx is clear and moist and mucous membranes are normal. Eyes: Conjunctivae and lids are normal. Pupils are equal, round, and reactive to light. Right eye exhibits no discharge. Left eye exhibits no discharge. No scleral icterus. Neck: Trachea normal and normal range of motion. Neck supple. Cardiovascular: Normal rate, regular rhythm and normal heart sounds. Pulmonary/Chest: Effort normal and breath sounds normal. Lymphadenopathy: She has no cervical adenopathy. Neurological: She is alert and oriented to person, place, and time. Skin: No rash noted. She is not diaphoretic. ASSESSMENT/PLAN: 1. Acute otitis media, right - ICD9: 382.9, ICD10: H66.91 (primary diagnosis) - Will begin treatment with Amoxicillin for 10 days - Supportive care with plenty of fluids, rest, and analgesia prn. - Follow up in 3-5 days if symptoms persist or worsen. - AMOXICILLIN 875 MG TABLET 2. Sinus congestion - ICD9: 478.19, ICD10: R09.81 -try flonase, f/u with pcp if symptoms persist. - FLUTICASONE 50 MCG/ACTUATION NASAL SPRAY,SUSPENSION 3. Feared complaint without diagnosis - ICD9: V65.5, ICD10: Z71.1 -take diflucan if symptoms of yeast infection occur, f/u with pcp if symptoms persist - FLUCONAZOLE 150 MG TABLET Prescription instructions reviewed with patient as applicable. Patient advised if symptoms do not improve or if symptoms worsen sooner, to contact the office for further evaluation by their primary care physician. Potential red flag symptoms discussed with the patient. Reviewed appropriate action plan to take if red flag symptoms occur. Patient agreeable to treatment plan. Jorge Nguyen APRN.JENA CNOV Observed: 07/19/2017 Status: COMPLETED Source: [place] 8:30 PM [facility] REPOSITORY Office Visit (WSTR) RONNIE DANGELO ([id number]) 1970 F BLD Date Time Provider Department 07/19/17 8:30 PM JORGE NGUYEN (JENA) [facility] During your visit today, we recorded the following information about you: Temperature Pulse Respiration Blood pressure 98.2 degrees 76/minute 16/minute 110/72 Weight 101.6 kg Jorge Nguyen APRN.CNP 07/19/2017 9:05 PM Signed Subjective HPI HPI Ronnie Dangelo is a 46 year old female who presents today for CC of bilateral ear pain. This started 3 days. Has tried otc medicatoin. Symptoms are worsened by nothing. Risk factors recent hx of ETD. .Patient presents with: Ear Pain: bilateral x 3 days PAST MEDICAL HISTORY Diagnosis Date - Diastasis of rectus abdominis 12/11/2015 - Dysthymic disorder Depression (non-psychotic) - Genital herpes, unspecified 01/09/2007 - HSV (herpes simplex virus) anogenital infection 1990 - Hypercholesteremia 05/2015 - Onychomycosis - SHAINA (obstructive sleep apnea) - SHAINA (obstructive sleep apnea) 04/13/2017 PAST SURGICAL HISTORY Procedure Laterality Date - APPENDECTOMY - REVISE MEDIAN N/CARPAL TUNNEL SURG Right 09/13/2016 - THYROID LEFT FINE NEEDLE ASPIRATION 08/02/07 U/ S FNA left thyroid nodule - THYROID LOBECTOMY,UNILAT 08/31/07 LEFT - VAGINAL HYSTERECTOMY 12/01/09 TVH for fibroid, menorrhagia, adenomyosis ALLERGIES Prozac [Fluoxetine Hcl] MEDICATIONS levothyroxine (LEVOTHROID) 75 mcg tablet Take 1 tablet by mouth daily before breakfast. COMPOUNDED PRESCRIPTION CPAP Supplies; hose; mask DX: SHAINA CPAP Initiate CPAP @ 10 cm of water with humidification. Mask (per patient preference) optional chin strap (if indicated) , filters, tubing, humidifier and lifetime supplies. omeprazole (PRILOSEC) 20 mg capsule Take 1 capsule by mouth daily before breakfast. 1/2 hr before meal. COMPOUNDED PRESCRIPTION Powerstep full length originalDx: plantar fasciitis cholecalciferol (VITAMIN D3) 2,000 unit tablet Take 1 tablet by mouth once daily. aspirin 325 mg tablet Take 325 mg by mouth once daily. traZODone (DESYREL) 50 mg tablet Take 1 tablet by mouth daily at bedtime. venlafaxine XR (EFFEXOR XR) 150 mg 24 hr capsule Take 1 capsule by mouth once daily. calcium carbonate-vitamin D3 500mg (1,250mg) -600 unit tab Take 1 tablet by mouth twice daily. multivitamins(DAILY VITAMIN TAB) Take one(1) tablet daily. FAMILY HISTORY Problem Relation Age of Onset - FIBROMYALGIA [OTHER] Mother - Lipids Father - Ischemic Heart Disease Father - Heart Father AK has hole in heart - Stroke Father - Diabetes Father - Stroke Maternal Grandmother - Alzheimer's Disease Maternal Grandmother - Psychiatry Maternal Grandmother DEMENTIA - Breast Cancer Maternal Grandmother - Diabetes Other pcousin - Heart Sister Hole in heart - Thyroid Sister Social History Substance Use Topics - Smoking status: Never Smoker - Smokeless tobacco: Never Used - Alcohol use No Review of Systems Constitutional: Negative for chills, fever and weight loss. HENT: Positive for congestion and sore throat. Negative for ear pain and nosebleeds. Respiratory: Negative for cough, shortness of breath and wheezing. Musculoskeletal: Negative for neck pain. Skin: Negative for itching and rash. Objective Blood pressure 110/72, pulse 76, temperature 36.8 ?C (98.2 ?F), temperature source Tympanic, resp. rate 16, weight 101.6 kg (224 lb), last menstrual period 11/16/2009. Physical Exam Constitutional: She is oriented to person, place, and time and well-developed, well-nourished, and in no distress. Non-toxic appearance. She does not have a sickly appearance. No distress. HENT: Head: Normocephalic and atraumatic. Right Ear: Hearing, external ear and ear canal normal. Tympanic membrane is erythematous and bulging. Tympanic membrane is not perforated. Left Ear: Hearing, tympanic membrane, external ear and ear canal normal. Nose: Nose normal. Mouth/Throat: Uvula is midline, oropharynx is clear and moist and mucous membranes are normal. Eyes: Conjunctivae and lids are normal. Pupils are equal, round, and reactive to light. Right eye exhibits no discharge. Left eye exhibits no discharge. No scleral icterus. Neck: Trachea normal and normal range of motion. Neck supple. Cardiovascular: Normal rate, regular rhythm and normal heart sounds. Pulmonary/Chest: Effort normal and breath sounds normal. Lymphadenopathy: She has no cervical adenopathy. Neurological: She is alert and oriented to person, place, and time. Skin: No rash noted. She is not diaphoretic. ASSESSMENT/PLAN: 1. Acute otitis media, right - ICD9: 382.9, ICD10: H66.91 (primary diagnosis) - Will begin treatment with Amoxicillin for 10 days - Supportive care with plenty of fluids, rest, and analgesia prn. - Follow up in 3-5 days if symptoms persist or worsen. - AMOXICILLIN 875 MG TABLET 2. Sinus congestion - ICD9: 478.19, ICD10: R09.81 -try flonase, f/u with pcp if symptoms persist. - FLUTICASONE 50 MCG/ACTUATION NASAL SPRAY,SUSPENSION 3. Feared complaint without diagnosis - ICD9: V65.5, ICD10: Z71.1 -take diflucan if symptoms of yeast infection occur, f/u with pcp if symptoms persist - FLUCONAZOLE 150 MG TABLET Prescription instructions reviewed with patient as applicable. Patient advised if symptoms do not improve or if symptoms worsen sooner, to contact the office for further evaluation by their primary care physician. Potential red flag symptoms discussed with the patient. Reviewed appropriate action plan to take if red flag symptoms occur. Patient agreeable to treatment plan. Jorge Nguyen APRN.JENA Nguyen APRN.JENA 07/19/2017 8:41 PM Signed OTITIS MEDIA GENERAL INFORMATION: Otitis media is an infection of the middle ear. The middle ear sits behind the eardrum. This infection may be caused by a virus or bacteria and often follows a cold. Children often have repeat ear infections. Otitis media is not contagious. INSTRUCTIONS: 1. An antibiotic has been prescribed. It should be taken exactly as prescribed. Do not stop the medicine even if the symptoms go away. 2. Gake-gua-ytpacri pain medication may be taken or other pain medication as prescribed by the doctor. 3. Nothing should be placed in the ear unless instructed by your doctor. 4. The patient may return to school/daycare or work when the temperature is normal (98.6 F or 37 C). 5. The patient should not swim while the ear is infected. CONTACT YOUR DOCTOR IF YOU OR YOUR CHILD: 1. Does not feel better within 36 hours. 2. Develops a temperature over 102E F (39E C). 3. Starts vomiting or has diarrhea. 4. Develops drainage from the affected ear. 5. Has any new problem that may be related to the medicine prescribed. RETURN TO THE ED IF: 1. You or your child has a severe headache or pain around the ear. 2. You or your child notice swelling around the ear. 3. You or your child has a seizure (convulsion), twitching of the facial muscles, or passes out. 4. You or your child is dizzy, has a stiff neck, or cannot walk or talk normally. 5. Your child becomes more irritable or listless (not interested in his or her surroundings, does not get soothed by you holding him or her). Referring Provider: SELF [[id number]] Allergies As of Date: 07/19/2017 Noted Allergy Reaction PROZAC (FLUOXETINE HCL) 07/14/2011 14 - Other: See Comments Comments: Aggressive behavior, emotional Date Reviewed: 07/19/2017 Reviewed by: Jorge Nguyen - Fully Assessed Reason for Visit: Ear Pain [817] Cmt: bilateral x 3 days Primary Visit Diagnosis:Acute otitis media, right [H66.91] Other Visit Diagnoses:Sinus congestion [R09.81] Feared complaint without diagnosis [Z71.1] Order(s):fluconazole (DIFLUCAN) 150 mg tabletTake 1 tablet by mouth once daily for 1 day.Disp: 1 tabletRfl: 0 amoxicillin (AMOXIL) 875 mg tabletTake 1 tablet by mouth twice daily for 10 days.Disp: 20 tabletRfl: 0 fluticasone (FLONASE) 50 mcg/actuation nasal sprayUse 2 Sprays in each nostril once daily. Rinse mouth after use.Disp: 1 BottleRfl: 0 Prescriptions as of 07/19/2017 Sig: LEVOTHYROXINE 75 MCG TABLET Take 1 tablet by mouth daily * COMPOUNDED PRESCRIPTION CPAP Supplies; hose; mask * CPAP Initiate CPAP @ 10 cm of wate* OMEPRAZOLE 20 MG CAPSULE,MACIEJ* Take 1 capsule by mouth daily* COMPOUNDED PRESCRIPTION Powerstep full length origina* CHOLECALCIFEROL (VITAMIN D3) * Take 1 tablet by mouth once d* ASPIRIN 325 MG TABLET Take 325 mg by mouth once enmanuel* TRAZODONE 50 MG TABLET Take 1 tablet by mouth daily * VENLAFAXINE ER 150 MG CAPSULE* Take 1 capsule by mouth once * CALCIUM CARBONATE-VITAMIN D3 * Take 1 tablet by mouth twice * * DAILY VITAMIN TABLET Take one(1) tablet daily. FLUCONAZOLE 150 MG TABLET Take 1 tablet by mouth once d* AMOXICILLIN 875 MG TABLET Take 1 tablet by mouth twice * FLUTICASONE 50 MCG/ACTUATION * Use 2 Sprays in each nostril * Problem List As Of Date 07/19/2017 Noted Resolved SUPERVIS OTHER NORMAL PREG [Z34.80] INVALID FOR*03/14/2007 AMA MULTIGRAVID-ANTEPARTUM [O09.529] INVALID FOR*03/14/2007 Genital herpes, unspecified [A60.00] INVALID FOR*09/10/2016 THYROID NODULE NODULAR, NONTOXIC [E04.9] INVALID FOR* KARLOS'S DISEASE OR STRUMA [E06.3] INVALID FOR* Abdominal pain, lower [R10.30] INVALID FOR*07/14/2011 Menorrhagia [N92.0] INVALID FOR*07/14/2011 Enlarged uterus [N85.2] INVALID FOR*07/14/2011 Pelvic pain INVALID FOR*07/14/2011 Anxiety [F41.9] INVALID FOR* Panic attack [F41.0] INVALID FOR* Diastasis of rectus abdominis [M62.08] INVALID FOR*04/13/2017 Carpal tunnel syndrome, bilateral [G56.03] INVALID FOR* Gastroesophageal reflux disease without esophag*INVALID FOR* Medication monitoring encounter [Z51.81] INVALID FOR*04/13/2017 SHAINA (obstructive sleep apnea) [G47.33] INVALID FOR* Mixed hyperlipidemia [E78.2] INVALID FOR* Obesity, Class II, BMI 35-39.9 [E66.9] INVALID FOR* Other instructions from your clinician: OTITIS MEDIA GENERAL INFORMATION: Otitis media is an infection of the middle ear. The middle ear sits behind the eardrum. This infection may be caused by a virus or bacteria and often follows a cold. Children often have repeat ear infections. Otitis media is not contagious. INSTRUCTIONS: 1. An antibiotic has been prescribed. It should be taken exactly as prescribed. Do not stop the medicine even if the symptoms go away. 2. Gxwp-mvw-qwjabtm pain medication may be taken or other pain medication as prescribed by the doctor. 3. Nothing should be placed in the ear unless instructed by your doctor. 4. The patient may return to school/daycare or work when the temperature is normal (98.6 F or 37 C). 5. The patient should not swim while the ear is infected. CONTACT YOUR DOCTOR IF YOU OR YOUR CHILD: 1. Does not feel better within 36 hours. 2. Develops a temperature over 102E F (39E C). 3. Starts vomiting or has diarrhea. 4. Develops drainage from the affected ear. 5. Has any new problem that may be related to the medicine prescribed. RETURN TO THE ED IF: 1. You or your child has a severe headache or pain around the ear. 2. You or your child notice swelling around the ear. 3. You or your child has a seizure (convulsion), twitching of the facial muscles, or passes out. 4. You or your child is dizzy, has a stiff neck, or cannot walk or talk normally. 5. Your child becomes more irritable or listless (not interested in his or her surroundings, does not get soothed by you holding him or her). Prescriptions ordered this encounter Disp Refills Start End FLUCONAZOLE 150 MG TABLET 1 ta* 0 07/19/2017 07/20/2017 Class: Print RX Route: ORAL Sig: Take 1 tablet by mouth once daily for 1 day. AMOXICILLIN 875 MG TABLET 20 t* 0 07/19/2017 07/29/2017 Route: ORAL Sig: Take 1 tablet by mouth twice daily for 10 days. FLUTICASONE 50 MCG/ACTUATION NASAL S* 1 Epifanio* 0 07/19/2017 Route: EACH NOSTRIL Sig: Use 2 Sprays in each nostril once daily. Rinse mouth after use. Encounter Status:Closed by JORGE NGUYEN CNP on 07/19/17 CNCO Observed: 06/09/2017 Status: COMPLETED Source: [place] 10:48 AM [facility] REPOSITORY [facility] ID: [id number] Author: Mammography Coordinator Service: (none) Author Type: Physician Type: Letter Filed: 06/13/2017 11:32 PM Note Text: June 09, 2017 PID: [id number] Ronnie Dangelo [address] [place] [address] Dear Ms. Dangelo, We are pleased to inform you that the results of your recent breast imaging exam on 06/09/2017 are normal. Your mammogram demonstrates that you have dense breast tissue, which could hide abnormalities. Dense breast tissue, in and of itself, is a relatively common condition. Therefore, this information is not provided to cause undue concern; rather, it is to raise your awareness and promote discussion with your health care provider regarding the presence of dense breast tissue in addition to other risk factors. Early detection of cancer is very important. We also understand recommendations regarding breast cancer screening are controversial. Please discuss with your primary care provider which strategy is best for you and whether a mammogram is right for you. Your imaging studies and report will be kept on file at [facility] as part of your permanent medical record and are available for your continuing care. Thank you for allowing us to help in meeting your health care needs. Sincerely, Dr. Beckford Interpreting Radiologist [facility] (Normal over 40) [facility] SCREENING Observed: 06/09/2017 Status: F Source: [place] 10:38 AM [facility] [place] REPOSITORY * * *Final Report* * * DATE OF EXAM: Jun 09 2017 10:38AM [facility] 0581 - [facility] SCREENING / PROCEDURE REASON: Encounter for screening mammogram for malignant neoplasm of breast * * * * Physician Interpretation * * * * RESULT: #[id number] - [facility] SCREENING BILATERAL DIGITAL SCREENING MAMMOGRAM WITH CAD: 06/09/2017 HISTORY: Encounter For Screening Mammogram For Malignant Neoplasm Of Breast /Screening Mammogram - patient reports NO breast symptoms /Priors available for comparison. RESULT: TECHNIQUE: The study was acquired using full field digital technology and interpreted from soft copy. Current study was also evaluated with a Computer Aided Detection (CAD). Comparison is made to exams dated: 06/08/2016 mammogram, 12/04/2015 mammogram, 06/05/2015 mammogram - [facility], 05/23/2015 mammogram - [facility], 02/03/2011 mammogram, and 01/31/2012 mammogram. The tissue of both breasts is heterogeneously dense. This may lower the sensitivity of mammography. No significant masses, calcifications, or other findings are seen in either breast. There has been no significant interval change. IMPRESSION: NEGATIVE There is no mammographic evidence of malignancy.A 1 year screening mammogram is recommended. The exam was reviewed by a staff physician. Roxy Joseph M.D. ash conti/penrad:06/09/2017 10:48:17 Wood Molder: Myra BELTRAN)(Sonia), [facility] letter sent: Normal over 40 Mammogram BI-RADS: 1 Negative Concrete Spreader: [place] Transcribe Date/Time: Jun 09 2017 10:22A Dictated by: SD JOSEPH MD This examination was interpreted and the report reviewed and electronically signed by: ROXY BECKFORD MD on Jun 09 2017 10:48AM EST [id number] Observed: 05/10/2017 Status: COMPLETED Source: [place] 6:34 AM [facility] REPOSIT[facility] ID: [id number] Author: Pamella Garcia Service: (none) Author Type: (none) Type: Progress Notes Filed: 05/10/2017 6:35 AM Note Text: Sleep Study Check-In Documentation Date: May 10, 2017 Name: Ronnie Dnagelo Patient was accompanied by Self. Location: [place] Latex allergy: No Tape allergy: No Current medications were reviewed with the patient:Yes Sleep aid taken by patient for the sleep study: Yes Name of sleep aid: Trazodone Procedure was explained to the patient and all questions were answered. PAP treatment discussed and shown to patient: Yes If PAP used enter mask info: Mask Name Avani Lucas Respironics MaskTypeNasal Mask SizeS/M Chin Sharp Used No Knowledge Program (KP): KP was not completed in [facility] by patient and accepted Study type: PAP titration Adverse Event: No (If yes create a new abstract) SERS Event: No Comments: Patient was advised to follow up with their ordering provider regarding test results Pamella Charles-Carissa CNPN Observed: 04/28/2017 Status: COMPLETED Source: [place] 12:00 AM [facility] REPOSITORY Telephone (FAMPWS) RONNIE DANGELO ([id number]) 1970 F BLD Date Time Provider Department 04/28/17 STANLEY NEWBY During your visit today, we recorded the following information about you: Saiadriel Alexsandra Psr 04/28/2017 11:[address] Freddie Lawson's office was contacted to schedule an appt for the patient. Dr. Lawson's scheduling staff is out until one pm. The back staff are requesting that we fax the following information to their office prior to scheduling the appt. They will need the Demographic information, reason for visit (referral) and any documentation or testing done in regards to this diagnosis. They will call the patient to schedule. The patient's best number for contact is: [phone]. Please put that in the information when faxing her information. Graciela Waters LPN 04/28/2017 12:11 PM Signed Information faxed as requested to Dr. Lawson's office. Graciela Jamil [employer] 05/02/2017 3:51 PM Signed Patient calling to ask if appt was scheduled with Surgeon, read notes below and told patient Dr Lawson office should be contacting her, if not called gave her phone number for his office. Allergies As of Date: 04/28/2017 Noted Allergy Reaction PROZAC (FLUOXETINE HCL) 07/14/2011 14 - Other: See Comments Comments: Aggressive behavior, emotional Date Reviewed: 03/30/2017 Reviewed by: Amy Callahan RN - Fully Assessed Reason for Visit: Consult info for plastic surgery [Other] Prescriptions as of 04/28/2017 Sig: DOXYCYCLINE HYCLATE 100 MG CA* Take 1 capsule by mouth twice* GUAIFENESIN ER 600 MG TABLET,* Take 2 tablets by mouth twice* COMPOUNDED PRESCRIPTION Powerstep full length origina* CHOLECALCIFEROL (VITAMIN D3) * Take 1 tablet by mouth once d* ASPIRIN 325 MG TABLET Take 325 mg by mouth once enmanuel* TRAZODONE 50 MG TABLET Take 1 tablet by mouth daily * VENLAFAXINE ER 150 MG CAPSULE* Take 1 capsule by mouth once * CALCIUM CARBONATE-VITAMIN D3 * Take 1 tablet by mouth twice * LEVOTHYROXINE 75 MCG TABLET Take 1 tablet by mouth daily * OMEPRAZOLE 20 MG CAPSULE,MACEIJ* Take 1 capsule by mouth daily* * DAILY VITAMIN TABLET Take one(1) tablet daily. Problem List As Of Date 04/28/2017 Noted Resolved SUPERVIS OTHER NORMAL PREG [Z34.80] INVALID FOR*03/14/2007 AMA MULTIGRAVID-ANTEPARTUM [O09.529] INVALID FOR*03/14/2007 Genital herpes, unspecified [A60.00] INVALID FOR*09/10/2016 THYROID NODULE NODULAR, NONTOXIC [E04.9] INVALID FOR* KARLOS'S DISEASE OR STRUMA [E06.3] INVALID FOR* Abdominal pain, lower [R10.30] INVALID FOR*07/14/2011 Menorrhagia [N92.0] INVALID FOR*07/14/2011 Enlarged uterus [N85.2] INVALID FOR*07/14/2011 Pelvic pain INVALID FOR*07/14/2011 Anxiety [F41.9] INVALID FOR* Panic attack [F41.0] INVALID FOR* Diastasis of rectus abdominis [M62.08] INVALID FOR*04/13/2017 Carpal tunnel syndrome, bilateral [G56.03] INVALID FOR* Gastroesophageal reflux disease without esophag*INVALID FOR* Medication monitoring encounter [Z51.81] INVALID FOR*04/13/2017 SHAINA (obstructive sleep apnea) [G47.33] INVALID FOR* Mixed hyperlipidemia [E78.2] INVALID FOR* Obesity, Class II, BMI 35-39.9 [E66.9] INVALID FOR* Encounter Status:Closed by GRACIELA WATERS LPN on 04/28/17 PROGRESS Observed: 04/22/2017 Status: COMPLETED Source: [place] 4:25 PM [facility] [place] REPOSITORY O ID: [id number] Author: Stanley Newby Service: (none) Author Type: Physician Type: Progress Notes Filed: 04/25/2017 7:19 AM Note Text: CC:Ronnie Dangelo is a 46 year old female who presents to the office for 6 months follow up HPI: Recently told does have moderate/severe SHAINA based on PSG, need for PSG PAP titration study- canceled this due to recent illness Cold symptoms, nasal congestion/pressure, sinus congestion, PND, cough- productive yellow sputum, symptoms >10 days, + 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 No fevers or chills. HPL Cholesterol Date Value Ref Range Status 06/08/2016 204 (H) 100 - 199 mg/dL Final HDL Cholesterol Date Value Ref Range Status 06/08/2016 57 >55 mg/dL Final LDL Cholesterol Date Value Ref Range Status 06/08/2016 118 60 - 129 mg/dL Final Triglyceride Date Value Ref Range Status 06/08/2016 143 30 - 149 mg/dL Final Diastasis rectus, worsening, causing her low back pain per patient, difficulty with doing her job, interested in referral PAST MEDICAL HISTORY Diagnosis Date - Diastasis of rectus abdominis 12/11/2015 - Dysthymic disorder Depression (non-psychotic) - Genital herpes, unspecified 01/09/2007 - HSV (herpes simplex virus) anogenital infection 1990 - Hypercholesteremia 05/2015 - Onychomycosis - SHAINA (obstructive sleep apnea) - SHAINA (obstructive sleep apnea) 04/13/2017 PAST SURGICAL HISTORY Procedure Laterality Date - APPENDECTOMY - REVISE MEDIAN N/CARPAL TUNNEL SURG Right 09/13/2016 - THYROID LEFT FINE NEEDLE ASPIRATION 08/02/07 U/ S FNA left thyroid nodule - THYROID LOBECTOMY,UNILAT 08/31/07 LEFT - VAGINAL HYSTERECTOMY 12/01/09 [facility] for fibroid, menorrhagia, adenomyosis Current Outpatient Prescriptions: COMPOUNDED PRESCRIPTION Powerstep full length originalDx: plantar fasciitis cholecalciferol (VITAMIN D3) 2,000 unit tablet Take 1 tablet by mouth once daily. aspirin 325 mg tablet Take 325 mg by mouth once daily. traZODone (DESYREL) 50 mg tablet Take 1 tablet by mouth daily at bedtime. venlafaxine XR (EFFEXOR XR) 150 mg 24 hr capsule Take 1 capsule by mouth once daily. calcium carbonate-vitamin D3 500mg (1,250mg) -600 unit tab Take 1 tablet by mouth twice daily. levothyroxine (LEVOTHROID) 75 mcg tablet Take 1 tablet by mouth daily before breakfast. omeprazole (PRILOSEC) 20 mg capsule Take 1 capsule by mouth daily before breakfast. 1/2 hr before meal. multivitamins(DAILY VITAMIN TAB) Take one(1) tablet daily. doxycycline hyclate (VIBRAMYCIN) 100 mg capsule Take 1 capsule by mouth twice daily for 10 days. guaiFENesin (MUCINEX) 600 mg 12 hr tablet Take 2 tablets by mouth twice daily for 7 days. No current facility-administered medications for this visit. ALLERGIES Allergen Reactions - Prozac [Fluoxetine * Other: See Comments Aggressive behavior, emotional Social History Marital status: Spouse name: SHANE Years of education: 12 Number of children: 3 Occupational History Occupation Employer Comment not employed Social History Main Topics Smoking status: Never Smoker Smokeless status: Never Used Alcohol use: No Drug use: No Sexual activity: Yes Partners with: Male control/protection: Vasectomy ROS: See HPI PE: BP 110/72 Pulse 80 Temp (Src) 98.5 (Left Tympanic) Resp 16 Wt 219 lb (99.3kg) LMP 11/16/2009 Gen: AANDOX3, NAD, non-toxic appearing HEENT: PERRLA, EOMs intact b/l, nares with congestion and drainage, pharynx without erythema, exudate, lesions, + PND drainage. Uvula midline. MMM, EAC normal, TM with serous fluid Neck: No LAD, no thyromegaly, no meningismus. CV: RRR, no murmur Lungs: CTA b/l, no wheezing, coughing Diastasis rectus >3-4 FB Skin: No rashes, lesions, or wounds on exposed skin. ASSESSMENT/PLAN: 1. Acute bronchitis, unspecified organism - ICD9: 466.0, ICD10: J20.9 (primary diagnosis) - Rx as below, f/u in office prn - DOXYCYCLINE HYCLATE 100 MG CAPSULE - GUAIFENESIN ER 600 MG TABLET, EXTENDED RELEASE 12 HR 2. Diastasis of rectus abdominis - ICD9: 728.84, ICD10: M62.08 - also with low back pain and weak CORE strength - CONSULT TO PLASTIC SURGERY 3. Chronic midline low back pain without sciatica - ICD9: 724.2, 338.29, ICD10: M54.5, G89.29 - see above - CONSULT TO PLASTIC SURGERY 4. SHAINA (obstructive sleep apnea) - ICD9: 327.23, ICD10: G47.33 - need for PAP PSG retitration study after feeling better 5. Mixed hyperlipidemia - ICD9: 272.2, ICD10: E78.2 - to be determined upon return of lab results - Encouraged following a low fat, low cholesterol diet. - Discussed the benefits of regular aerobic exercise and weight loss. - Check fasting lipid panel 6. Obesity, Class II, BMI 35-39.9 - ICD9: 278.00, ICD10: E66.9 - need for weight loss Stanley Newby DO Return if no improvement. Follow up with Stanley Newby DO. Discussed risks, benefits, alternatives, and potential side effects of medications. Patient/Guardian expressed understanding and agreed with the plan. See patient instructions. Stanley Newby DO [address] [place] [address] CNOV Observed: 04/22/2017 Status: COMPLETED Source: [place] 3:00 PM [facility] REPOSITORY Office Visit (FAMPWS) DANGELORONNIE PASCAL Aroldo ([id number]) 1970 F BLD Date Time Provider Department 04/22/17 3:00 PM STANLEY NEWBY FAMKeilyWS During your visit today, we recorded the following information about you: Temperature Pulse Respiration Blood pressure 98.5 degrees 80/minute 16/minute 110/72 Weight 99.3 kg Stanley Newby DO 04/25/2017 7:19 AM Signed CC:Ronnie Dangelo is a 46 year old female who presents to the office for 6 months follow up HPI: Recently told does have moderate/severe SHAINA based on PSG, need for PSG PAP titration study- canceled this due to recent illness Cold symptoms, nasal congestion/pressure, sinus congestion, PND, cough- productive yellow sputum, symptoms ANDgt;10 days, + 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 No fevers or chills. HPL Cholesterol Date Value Ref Range Status 06/08/2016 204 (H) 100 - 199 mg/dL Final HDL Cholesterol Date Value Ref Range Status 06/08/2016 57 ANDgt;55 mg/dL Final LDL Cholesterol Date Value Ref Range Status 06/08/2016 118 60 - 129 mg/dL Final Triglyceride Date Value Ref Range Status 06/08/2016 143 30 - 149 mg/dL Final Diastasis rectus, worsening, causing her low back pain per patient, difficulty with doing her job, interested in referral PAST MEDICAL HISTORY Diagnosis Date - Diastasis of rectus abdominis 12/11/2015 - Dysthymic disorder Depression (non-psychotic) - Genital herpes, unspecified 01/09/2007 - HSV (herpes simplex virus) anogenital infection 1990 - Hypercholesteremia 05/2015 - Onychomycosis - SHAINA (obstructive sleep apnea) - SHANIA (obstructive sleep apnea) 04/13/2017 PAST SURGICAL HISTORY Procedure Laterality Date - APPENDECTOMY - REVISE MEDIAN N/CARPAL TUNNEL SURG Right 09/13/2016 - THYROID LEFT FINE NEEDLE ASPIRATION 08/02/07 U/ S FNA left thyroid nodule - THYROID LOBECTOMY,UNILAT 08/31/07 LEFT - VAGINAL HYSTERECTOMY 12/01/09 [facility] for fibroid, menorrhagia, adenomyosis Current Outpatient Prescriptions: COMPOUNDED PRESCRIPTION Powerstep full length originalDx: plantar fasciitis cholecalciferol (VITAMIN D3) 2,000 unit tablet Take 1 tablet by mouth once daily. aspirin 325 mg tablet Take 325 mg by mouth once daily. traZODone (DESYREL) 50 mg tablet Take 1 tablet by mouth daily at bedtime. venlafaxine XR (EFFEXOR XR) 150 mg 24 hr capsule Take 1 capsule by mouth once daily. calcium carbonate-vitamin D3 500mg (1,250mg) -600 unit tab Take 1 tablet by mouth twice daily. levothyroxine (LEVOTHROID) 75 mcg tablet Take 1 tablet by mouth daily before breakfast. omeprazole (PRILOSEC) 20 mg capsule Take 1 capsule by mouth daily before breakfast. 1/2 hr before meal. multivitamins(DAILY VITAMIN TAB) Take one(1) tablet daily. doxycycline hyclate (VIBRAMYCIN) 100 mg capsule Take 1 capsule by mouth twice daily for 10 days. guaiFENesin (MUCINEX) 600 mg 12 hr tablet Take 2 tablets by mouth twice daily for 7 days. No current facility-administered medications for this visit. ALLERGIES Allergen Reactions - Prozac [Fluoxetine * Other: See Comments Aggressive behavior, emotional Social History Marital status: Spouse name: SHANE Years of education: 12 Number of children: 3 Occupational History Occupation Employer Comment not employed Social History Main Topics Smoking status: Never Smoker Smokeless status: Never Used Alcohol use: No Drug use: No Sexual activity: Yes Partners with: Male control/protection: Vasectomy ROS: See HPI PE: BP 110/72 Pulse 80 Temp (Src) 98.5 (Left Tympanic) Resp 16 Wt 219 lb (99.3kg) LMP 11/16/2009 Gen: AANDamp;OX3, NAD, non-toxic appearing HEENT: PERRLA, EOMs intact b/l, nares with congestion and drainage, pharynx without erythema, exudate, lesions, + PND drainage. Uvula midline. MMM, EAC normal, TM with serous fluid Neck: No LAD, no thyromegaly, no meningismus. CV: RRR, no murmur Lungs: CTA b/l, no wheezing, coughing Diastasis rectus ANDgt;3-4 FB Skin: No rashes, lesions, or wounds on exposed skin. ASSESSMENT/PLAN: 1. Acute bronchitis, unspecified organism - ICD9: 466.0, ICD10: J20.9 (primary diagnosis) - Rx as below, f/u in office prn - DOXYCYCLINE HYCLATE 100 MG CAPSULE - GUAIFENESIN ER 600 MG TABLET, EXTENDED RELEASE 12 HR 2. Diastasis of rectus abdominis - ICD9: 728.84, ICD10: M62.08 - also with low back pain and weak CORE strength - CONSULT TO PLASTIC SURGERY 3. Chronic midline low back pain without sciatica - ICD9: 724.2, 338.29, ICD10: M54.5, G89.29 - see above - CONSULT TO PLASTIC SURGERY 4. SHAINA (obstructive sleep apnea) - ICD9: 327.23, ICD10: G47.33 - need for PAP PSG retitration study after feeling better 5. Mixed hyperlipidemia - ICD9: 272.2, ICD10: E78.2 - to be determined upon return of lab results - Encouraged following a low fat, low cholesterol diet. - Discussed the benefits of regular aerobic exercise and weight loss. - Check fasting lipid panel 6. Obesity, Class II, BMI 35-39.9 - ICD9: 278.00, ICD10: E66.9 - need for weight loss Stanley Newby DO Return if no improvement. Follow up with Stanley Newby DO. Discussed risks, benefits, alternatives, and potential side effects of medications. Patient/Guardian expressed understanding and agreed with the plan. See patient instructions. Stanley Newby DO [address] [place] [address] Referring Provider: YONG GALLAGHER [[id number]] Allergies As of Date: 04/22/2017 Noted Allergy Reaction PROZAC (FLUOXETINE HCL) 07/14/2011 14 - Other: See Comments Comments: Aggressive behavior, emotional Date Reviewed: 03/30/2017 Reviewed by: Amy Callahan RN - Fully Assessed Reason for Visit: Follow Up [171] Cmt: 6 months Primary Visit Diagnosis:Acute bronchitis, unspecified organism [J20.9] Other Visit Diagnoses:Diastasis of rectus abdominis [M62.08] Chronic midline low back pain without sciatica [M54.5, G89.29] SHAINA (obstructive sleep apnea) [G47.33] Mixed hyperlipidemia [E78.2] Obesity, Class II, BMI 35-39.9 [E66.9] Order(s):CONSULT TO PLASTIC SURGERY [9028] Order #: [id number]: 1 doxycycline hyclate (VIBRAMYCIN) 100 mg capsuleTake 1 capsule by mouth twice daily for 10 days.Disp: 20 capsuleRfl: 0 guaiFENesin (MUCINEX) 600 mg 12 hr tabletTake 2 tablets by mouth twice daily for 7 days.Disp: 28 tabletRfl: 0 Prescriptions as of 04/22/2017 Sig: COMPOUNDED PRESCRIPTION Powerstep full length origina* CHOLECALCIFEROL (VITAMIN D3) * Take 1 tablet by mouth once d* ASPIRIN 325 MG TABLET Take 325 mg by mouth once enmanuel* TRAZODONE 50 MG TABLET Take 1 tablet by mouth daily * VENLAFAXINE ER 150 MG CAPSULE* Take 1 capsule by mouth once * CALCIUM CARBONATE-VITAMIN D3 * Take 1 tablet by mouth twice * LEVOTHYROXINE 75 MCG TABLET Take 1 tablet by mouth daily * OMEPRAZOLE 20 MG CAPSULE,MACIEJ* Take 1 capsule by mouth daily* * DAILY VITAMIN TABLET Take one(1) tablet daily. DOXYCYCLINE HYCLATE 100 MG CA* Take 1 capsule by mouth twice* GUAIFENESIN ER 600 MG TABLET,* Take 2 tablets by mouth twice* Problem List As Of Date 04/22/2017 Noted Resolved SUPERVIS OTHER NORMAL PREG [Z34.80] INVALID FOR*03/14/2007 AMA MULTIGRAVID-ANTEPARTUM [O09.529] INVALID FOR*03/14/2007 Genital herpes, unspecified [A60.00] INVALID FOR*09/10/2016 THYROID NODULE NODULAR, NONTOXIC [E04.9] INVALID FOR* KARLOS'S DISEASE OR STRUMA [E06.3] INVALID FOR* Abdominal pain, lower [R10.30] INVALID FOR*07/14/2011 Menorrhagia [N92.0] INVALID FOR*07/14/2011 Enlarged uterus [N85.2] INVALID FOR*07/14/2011 Pelvic pain INVALID FOR*07/14/2011 Anxiety [F41.9] INVALID FOR* Panic attack [F41.0] INVALID FOR* Diastasis of rectus abdominis [M62.08] INVALID FOR*04/13/2017 Carpal tunnel syndrome, bilateral [G56.03] INVALID FOR* Gastroesophageal reflux disease without esophag*INVALID FOR* Medication monitoring encounter [Z51.81] INVALID FOR*04/13/2017 SHAINA (obstructive sleep apnea) [G47.33] INVALID FOR* Prescriptions ordered this encounter Disp Refills Start End DOXYCYCLINE HYCLATE 100 MG CAPSULE 20 c* 0 04/22/2017 05/02/2017 Route: ORAL Sig: Take 1 capsule by mouth twice daily for 10 days. GUAIFENESIN ER 600 MG TABLET, EXTEND* 28 t* 0 04/22/2017 04/29/2017 Route: ORAL Sig: Take 2 tablets by mouth twice daily for 7 days. Medications Discontinued During This Encounter terbinafine HCl (LAMISIL) 250 mg tab* 30 t* 3 10/19/2016 04/22/2017 Route: ORAL Sig: Take 1 tablet by mouth once daily. Disc: Reason for discontinue is not on file. Letter Text Stanley Newby, DO [address] [place], [place] [address] 04/22/2017 TO WHOM IT MAY CONCERN: This is to confirm that Ronnie Dangelo had an appointment and was seen at the [facility] in the Department of Family Medicine by Jorge Reynoso 04/22/2017 due to acute illness. Sincerely yours, Stanley Newby DO Encounter Status:Closed by STANLEY NEWBY DO on 04/25/17 PROGRESS Observed: 04/18/2017 Status: COMPLETED Source: [place] 4:23 PM [facility] RE[facility] HNO ID: [id number] Author: Maximo Melchor III Service: (none) Author Type: Physician Type: Progress Notes Filed: 05/10/2017 6:35 AM Note Text: April 18, 2017 The medical record was reviewed to determine if the proposed sleep study conforms to the [facility] Practice Parameters for the Indications for Polysomnography and Related Procedures, or if the sleep study is indicated for other reasons. Indications for study: SHAINA previously diagnosed: Evaluate response to PAP therapy Sleep study to be performed: PAP titration study Special instructions: Start titration at PAP setting of 5 cmH2O Maximo Melchor III, PhD PROGRESS Observed: 04/18/2017 Status: COMPLETED Source: [place] 4:17 PM [facility] RE[facility] HNO ID: [id number] Author: Katarina Dykes Psr Service: (none) Author Type: (none) Type: Progress Notes Filed: 05/10/2017 6:35 AM Note Text: April 18, 2017 An order has been received for PAP titration study from JENA Hay. [facility] Staff. Visit prep complete. Comments :No The sleep study is scheduled for 04/19. Insurance: [facility] [facility] [place] / Plan: [facility] MEDICA[facility] / Product Type: Medicaid / Katarina Dykes Psr XR FOOT 3V AP/LAT/OBL Observed: 03/30/2017 Status: F Source: [place] RT 3:35 PM [facility] REPOSITORY * * *Final Report* * * DATE OF EXAM: Mar 30 2017 3:35PM [id number] - XR FOOT 3V AP/LAT/OBL RT / PROCEDURE REASON: Plantar fascial fibromatosis * * * * Physician Interpretation * * * * Indication: Bilateral foot pain Comparison: None AP, lateral and oblique views of the right foot and the left foot are obtained. There is normal architecture and mineralization of the bones. There is no acute fracture or dislocation. Joint spaces are maintained. There is a small right plantar calcaneal spur. Impression: 1. No acute fracture or dislocation. Concrete Spreader: [employer] Transcribe Date/Time: Mar 31 2017 5:28P Dictated by : ERIK REZA MD This examination was interpreted and the report reviewed and electronically signed by: ERIK REZA MD on Mar 31 2017 5:31PM EST [id number] XR FOOT 3V AP/LAT/OBL Observed: 03/30/2017 Status: F Source: [facility] 3:35 PM [facility] REPOSITORY * * *Final Report* * * DATE OF EXAM: Mar 30 2017 3:35PM [id number] - XR FOOT 3V AP/LAT/OBL LT / PROCEDURE REASON: Plantar fascial fibromatosis * * * * Physician Interpretation * * * * Indication: Bilateral foot pain Comparison: None AP, lateral and oblique views of the right foot and the left foot are obtained. There is normal architecture and mineralization of the bones. There is no acute fracture or dislocation. Joint spaces are maintained. There is a small right plantar calcaneal spur. Impression: 1. No acute fracture or dislocation. Concrete Spreader: [employer] Transcribe Date/Time: Mar 31 2017 5:28P Dictated by : ERIK REZA MD This examination was interpreted and the report reviewed and electronically signed by: ERIK REZA MD on Mar 31 2017 5:31PM EST [id number] PROGRESS Observed: 03/30/2017 Status: COMPLETED Source: [place] 3:25 PM [facility] RE[facility] HNO ID: [id number] Author: Luba Kendrick (Rt) Josef Clarke Service: (none) Author Type: Clicking Machine Operator Type: Progress Notes Filed: 03/30/2017 3:35 PM Note Text: Radiology Service Progress Note PATIENT NAME: Ronnie Dangelo DATE OF SERVICE: March 30, 2017 TIME: 3:25 PM PATIENT IDENTITY VERIFICATION COMPLETED USING TWO (2) METHODS: Patient confirmed name verbally and Date of . PATIENT GENDER DATA: Female. status: : No status: NO. PATIENT RELEVANT IMPLANT DATA REVIEWED: Not Applicable RADIOLOGY DEPARTMENT: General X-ray: Exam(s) Completed: Lower Extremity X-Ray(s): Foot, Bilateral and Wt. Bearing: PERIPHERAL IV DATA: Not applicable SIGNED BY: RT Steve March 30, 2017 3:25 PM PROGRESS Observed: 03/30/2017 Status: COMPLETED Source: [place] 2:59 PM [facility] [place] REPOSITORY O ID: [id number] Author: Eren Dutton Service: (none) Author Type: Physician Type: Progress Notes Filed: 03/31/2017 7:23 AM Note Text: Consultation requested by Dr. Erazo for an opinion regarding nail discoloration. My final recommendations will be communicated back to the requesting physician by way of shared Medical record or letter to requesting physician via US mail. Initial Podiatric Office Visit: Chief Complaint: This 46 year old female who presents with chief complaint: nail discoloration of b/l hallux HPI Patient presents to clinic for evaluation of b/l feet. She complains of thick discolored toenails of b/l hallux L>R. She has had the discoloration for over one year. She denies any trauma to her toenails. She saw another physician last year who performed b/l hallux toenail avulsions for the discoloration of her toenails and the nails returned discolored. She has been on lamisil x 6 months and has not noticed any improvement. She denies pain. She is just here to discuss options for the toenails. She also complains of b/l heel pain with prolonged standing. PAIN EVALUATION No data found. No results found for: HBA1C PCP: Stanley Newby DO PAST MEDICAL HISTORY Diagnosis Date - Dysthymic disorder Depression (non-psychotic) - Genital herpes, unspecified 01/09/2007 - HSV (herpes simplex virus) anogenital infection 1990 - Hypercholesteremia 05/2015 - Onychomycosis Current Outpatient Prescriptions: cholecalciferol (VITAMIN D3) 2,000 unit tablet Take 1 tablet by mouth once daily. aspirin 325 mg tablet Take 325 mg by mouth once daily. terbinafine HCl (LAMISIL) 250 mg tablet Take 1 tablet by mouth once daily. traZODone (DESYREL) 50 mg tablet Take 1 tablet by mouth daily at bedtime. venlafaxine XR (EFFEXOR XR) 150 mg 24 hr capsule Take 1 capsule by mouth once daily. calcium carbonate-vitamin D3 500mg (1,250mg) -600 unit tab Take 1 tablet by mouth twice daily. levothyroxine (LEVOTHROID) 75 mcg tablet Take 1 tablet by mouth daily before breakfast. omeprazole (PRILOSEC) 20 mg capsule Take 1 capsule by mouth daily before breakfast. 1/2 hr before meal. multivitamins(DAILY VITAMIN TAB) Take one(1) tablet daily. No current facility-administered medications for this visit. ALLERGIES Allergen Reactions - Prozac [Fluoxetine * Other: See Comments Aggressive behavior, emotional PAST SURGICAL HISTORY Procedure Laterality Date - APPENDECTOMY - REVISE MEDIAN N/CARPAL TUNNEL SURG Right 09/13/2016 - THYROID LEFT FINE NEEDLE ASPIRATION 08/02/07 U/ S FNA left thyroid nodule - THYROID LOBECTOMY,UNILAT 08/31/07 LEFT - VAGINAL HYSTERECTOMY 12/01/09 TV for fibroid, menorrhagia, adenomyosis FAMILY HISTORY Problem Relation Age of Onset - FIBROMYALGIA [OTHER] Mother - Lipids Father - Ischemic Heart Disease Father - Heart Father [place] has hole in heart - Stroke Father - Diabetes Father - Stroke Maternal Grandmother - Alzheimer's Disease Maternal Grandmother - Psychiatry Maternal Grandmother DEMENTIA - Breast Cancer Maternal Grandmother - Diabetes Other pcousin - Heart Sister Hole in heart - Thyroid Sister Social History Marital status: Spouse name: SHANE Years of education: 12 Number of children: 3 Occupational History Occupation Employer Comment not employed Social History Main Topics Smoking status: Never Smoker Smokeless status: Never Used Alcohol use: No Drug use: No Sexual activity: Yes Partners with: Male control/protection: Vasectomy REVIEW OF SYSTEMS GENERAL: Negative for Malaise, significant weight loss, fever RESPIRATORY: Negative for cough, wheezing and shortness of breath CARDIOVASCULAR: Negative for chest pain, leg swelling and palpitations GI: Negative for abdominal discomfort, blood in stools or black stools and change in bowel habits : Negative for dysuria, frequency and incontinence MUSCULOSKELETAL: Negative for joint pain or swelling, back pain, and muscle pain. SKIN: Negative for lesions, rash, and itching. HEMATOLOGY/LYMPHOLOGY Negative for prolonged bleeding, bruising easily, and swollen nodes. ENDOCRINE: Negative for cold or heat intolerance, polyuria, polydipsia and goiter. NEURO: negative Physical Exam: Constitutional: Pt is a well developed 46 year old female who is alert, oriented and cooperative Eyes: Following during examination. No redness or drainage. Respiratory: RR normal and nonlabored. Even breathing. No evidence of distress or shortness of breath. Psychology: Patient is engaged during conversation. Normal affect and mood. Does not appear depressed or anxious during encounter. Vascular: Dorsalis pedis and posterior tibial pulses palpable as b/l Capillary Fill time < 5 seconds to digits 1-5 b/l Skin temperature warm to warm proximal to distal b/l Hair growth present to digits Neurological: intact light touch/epicritic sensation b/l intact protective sensation no significant neurological deficits - tinel b/l Dermatological: B/l hallux toenail shows yellow discoloration and mild thickening. Left hallux toenail is more advanced than right. Webspaces clean and dry 1-4 b/l. Skin appears well hydrated and supple. good color, texture, turgor. No open lesions present. No callosities present. Musculoskeletal/Orthopaedic: Patient has pain to palpation of b/l heels Foot type is pronatd structurally AJ ROM is full with knee extended and flexed 1st MPJ is full when loaded and no pain or crepitus are noted with ROM. MTJ, STJ are full and free of pain and crepitus. +5/5 muscle strength dorsiflexion, plantarflexion, inversion, eversion b/l ASSESSMENT: (B35.1) Onychomycosis (primary encounter diagnosis) (M72.2) Plantar fasciitis, bilateral PLAN: 1. History and physical examination performed. 2. Discussed toenail discoloration. Discussed possible trauma vs fungal etiology. Discussed topical care vs lamisil which she has tried with no resolution. Discussed laser but if lamisil has not worked, I would fear that laser will likely be unsuccessful. If patient has pain in future of nails, I would consider removal of the toenails with matrixectomy. She may consider on left great toe in future. 3. Discussed b/l heel pain. Suspect component of plantar fasciitis. Recommend stretching, icing, nsaids as needed and use of inserts and to avoid barefoot walking. Xrays ordered 4. F/u prn. Eren Dutton DPM CNOV Observed: 03/30/2017 Status: COMPLETED Source: [place] 2:40 PM [facility] REPOSITORY Office Visit (PODIWS) RONNIE DANGELO ([id number]) 1970 F BLD Date Time Provider Department 03/30/17 2:40 PM EREN DUTTON PODDARCIES During your visit today, we recorded the following information about you: Eren Dutton DPM 03/31/2017 7:23 AM Signed Consultation requested by Dr. Erazo for an opinion regarding nail discoloration. My final recommendations will be communicated back to the requesting physician by way of shared Medical record or letter to requesting physician via US mail. Initial Podiatric Office Visit: Chief Complaint: This 46 year old female who presents with chief complaint: nail discoloration of b/l hallux HPI Patient presents to clinic for evaluation of b/l feet. She complains of thick discolored toenails of b/l hallux LANDgt;R. She has had the discoloration for over one year. She denies any trauma to her toenails. She saw another physician last year who performed b/l hallux toenail avulsions for the discoloration of her toenails and the nails returned discolored. She has been on lamisil x 6 months and has not noticed any improvement. She denies pain. She is just here to discuss options for the toenails. She also complains of b/l heel pain with prolonged standing. PAIN EVALUATION No data found. No results found for: HBA1C PCP: Stanley Newby DO PAST MEDICAL HISTORY Diagnosis Date - Dysthymic disorder Depression (non-psychotic) - Genital herpes, unspecified 01/09/2007 - HSV (herpes simplex virus) anogenital infection 1990 - Hypercholesteremia 05/2015 - Onychomycosis Current Outpatient Prescriptions: cholecalciferol (VITAMIN D3) 2,000 unit tablet Take 1 tablet by mouth once daily. aspirin 325 mg tablet Take 325 mg by mouth once daily. terbinafine HCl (LAMISIL) 250 mg tablet Take 1 tablet by mouth once daily. traZODone (DESYREL) 50 mg tablet Take 1 tablet by mouth daily at bedtime. venlafaxine XR (EFFEXOR XR) 150 mg 24 hr capsule Take 1 capsule by mouth once daily. calcium carbonate-vitamin D3 500mg (1,250mg) -600 unit tab Take 1 tablet by mouth twice daily. levothyroxine (LEVOTHROID) 75 mcg tablet Take 1 tablet by mouth daily before breakfast. omeprazole (PRILOSEC) 20 mg capsule Take 1 capsule by mouth daily before breakfast. 1/2 hr before meal. multivitamins(DAILY VITAMIN TAB) Take one(1) tablet daily. No current facility-administered medications for this visit. ALLERGIES Allergen Reactions - Prozac [Fluoxetine * Other: See Comments Aggressive behavior, emotional PAST SURGICAL HISTORY Procedure Laterality Date - APPENDECTOMY - REVISE MEDIAN N/CARPAL TUNNEL SURG Right 09/13/2016 - THYROID LEFT FINE NEEDLE ASPIRATION 08/02/07 U/ S FNA left thyroid nodule - THYROID LOBECTOMY,UNILAT 08/31/07 LEFT - VAGINAL HYSTERECTOMY 12/01/09 [facility] for fibroid, menorrhagia, adenomyosis FAMILY HISTORY Problem Relation Age of Onset - FIBROMYALGIA [OTHER] Mother - Lipids Father - Ischemic Heart Disease Father - Heart Father [place] has hole in heart - Stroke Father - Diabetes Father - Stroke Maternal Grandmother - Alzheimer's Disease Maternal Grandmother - Psychiatry Maternal Grandmother DEMENTIA - Breast Cancer Maternal Grandmother - Diabetes Other pcousin - Heart Sister Hole in heart - Thyroid Sister Social History Marital status: Spouse name: SHANE Years of education: 12 Number of children: 3 Occupational History Occupation Employer Comment not employed Social History Main Topics Smoking status: Never Smoker Smokeless status: Never Used Alcohol use: No Drug use: No Sexual activity: Yes Partners with: Male control/protection: Vasectomy REVIEW OF SYSTEMS GENERAL: Negative for Malaise, significant weight loss, fever RESPIRATORY: Negative for cough, wheezing and shortness of breath CARDIOVASCULAR: Negative for chest pain, leg swelling and palpitations GI: Negative for abdominal discomfort, blood in stools or black stools and change in bowel habits : Negative for dysuria, frequency and incontinence MUSCULOSKELETAL: Negative for joint pain or swelling, back pain, and muscle pain. SKIN: Negative for lesions, rash, and itching. HEMATOLOGY/LYMPHOLOGY Negative for prolonged bleeding, bruising easily, and swollen nodes. ENDOCRINE: Negative for cold or heat intolerance, polyuria, polydipsia and goiter. NEURO: negative Physical Exam: Constitutional: Pt is a well developed 46 year old female who is alert, oriented and cooperative Eyes: Following during examination. No redness or drainage. Respiratory: RR normal and nonlabored. Even breathing. No evidence of distress or shortness of breath. Psychology: Patient is engaged during conversation. Normal affect and mood. Does not appear depressed or anxious during encounter. Vascular: Dorsalis pedis and posterior tibial pulses palpable as b/l Capillary Fill time ANDlt; 5 seconds to digits 1-5 b/l Skin temperature warm to warm proximal to distal b/l Hair growth present to digits Neurological: intact light touch/epicritic sensation b/l intact protective sensation no significant neurological deficits - tinel b/l Dermatological: B/l hallux toenail shows yellow discoloration and mild thickening. Left hallux toenail is more advanced than right. Webspaces clean and dry 1-4 b/l. Skin appears well hydrated and supple. good color, texture, turgor. No open lesions present. No callosities present. Musculoskeletal/Orthopaedic: Patient has pain to palpation of b/l heels Foot type is pronatd structurally AJ ROM is full with knee extended and flexed 1st MPJ is full when loaded and no pain or crepitus are noted with ROM. MTJ, STJ are full and free of pain and crepitus. +5/5 muscle strength dorsiflexion, plantarflexion, inversion, eversion b/l ASSESSMENT: (B35.1) Onychomycosis (primary encounter diagnosis) (M72.2) Plantar fasciitis, bilateral PLAN: 1. History and physical examination performed. 2. Discussed toenail discoloration. Discussed possible trauma vs fungal etiology. Discussed topical care vs lamisil which she has tried with no resolution. Discussed laser but if lamisil has not worked, I would fear that laser will likely be unsuccessful. If patient has pain in future of nails, I would consider removal of the toenails with matrixectomy. She may consider on left great toe in future. 3. Discussed b/l heel pain. Suspect component of plantar fasciitis. Recommend stretching, icing, nsaids as needed and use of inserts and to avoid barefoot walking. Xrays ordered 4. F/u prn. Eren Dutton DPM Referring Provider: FLOWER ERAZO ([facility]) [[id number]] Allergies As of Date: 03/30/2017 Noted Allergy Reaction PROZAC (FLUOXETINE HCL) 07/14/2011 14 - Other: See Comments Comments: Aggressive behavior, emotional Date Reviewed: 03/30/2017 Reviewed by: Amy Callahan RN - Fully Assessed Reason for Visit: New Patient [172] Primary Visit Diagnosis:Onychomycosis [B35.1] Other Visit Diagnosis:Plantar fasciitis, bilateral [M72.2] Order(s):COMPOUNDED PRESCRIPTIONPowerstep full length original Dx: plantar fasciitisDisp: 1 DeviceRfl: 0 XR FOOT GENERAL 3V AP/LAT/OBL LT [7508098] Order #: [id number] FUTURE XR FOOT GENERAL 3V AP/LAT/OBL RT [[id number]] Order #: [id number] FUTURE Prescriptions as of 03/30/2017 Sig: CHOLECALCIFEROL (VITAMIN D3) * Take 1 tablet by mouth once d* ASPIRIN 325 MG TABLET Take 325 mg by mouth once enmanuel* TERBINAFINE HCL 250 MG TABLET Take 1 tablet by mouth once d* TRAZODONE 50 MG TABLET Take 1 tablet by mouth daily * VENLAFAXINE ER 150 MG CAPSULE* Take 1 capsule by mouth once * CALCIUM CARBONATE-VITAMIN D3 * Take 1 tablet by mouth twice * LEVOTHYROXINE 75 MCG TABLET Take 1 tablet by mouth daily * OMEPRAZOLE 20 MG CAPSULE,MACIEJ* Take 1 capsule by mouth daily* * DAILY VITAMIN TABLET Take one(1) tablet daily. COMPOUNDED PRESCRIPTION Powerstep full length origina* Problem List As Of Date 03/30/2017 Noted Resolved SUPERVIS OTHER NORMAL PREG [Z34.80] INVALID FOR*03/14/2007 AMA MULTIGRAVID-ANTEPARTUM [O09.529] INVALID FOR*03/14/2007 Genital herpes, unspecified [A60.00] INVALID FOR*09/10/2016 THYROID NODULE NODULAR, NONTOXIC [E04.9] INVALID FOR* KARLOS'S DISEASE OR STRUMA [E06.3] INVALID FOR* Abdominal pain, lower [R10.30] INVALID FOR*07/14/2011 Menorrhagia [N92.0] INVALID FOR*07/14/2011 Enlarged uterus [N85.2] INVALID FOR*07/14/2011 Pelvic pain INVALID FOR*07/14/2011 Anxiety [F41.9] INVALID FOR* Panic attack [F41.0] INVALID FOR* Diastasis of rectus abdominis [M62.08] INVALID FOR* Carpal tunnel syndrome, bilateral [G56.03] INVALID FOR* Gastroesophageal reflux disease without esophag*INVALID FOR* Medication monitoring encounter [Z51.81] INVALID FOR* Prescriptions ordered this encounter Disp Refills Start End COMPOUNDED PRESCRIPTION 1 De* 0 03/30/2017 Class: Print RX Sig: Powerstep full length original Dx: plantar fasciitis Encounter Status:Closed by EREN DUTTON DPM on 03/31/17 ALLERGIES ALLERGIES DATE TYPE / CODE NAME / CODE REACTION SEVERITY SOURCE 02/13/2018 Drug fluoxetine Other Unknown [place] Allergy/416 HCl/[id number](RX [facility] [id number]([facility] ED CT) Repository 07/14/2011 DRUG FLUOXETINE HCL OTHER: SEE [facility] INGREDI/419 Other [place] 620730(SN Repository ED CT) ENCOUNTERS ENCOUNTERS ADMIT/DISCHARGE ACCOUNT ADMITTING ENCOUNTER LOCATION SOURCE NUMBER CLASS 03/16/2018/03/16/20 [id number] Ambulatory BMSBuilding:B Domin[place] [address] [facility] Repository 03/09/2018 [id number] Ambulatory BMSBuilding:W [facility] Repository 03/09/2018/03/09/20 [id number] Ambulatory [address] Hospital ing:[facility] Repository 02/13/2018/02/14/20 [id number] Ambulatory BMSBuilding:B [place] [address] [facility] Repository 02/02/2018/02/04/20 [id number] Ambulatory [address] [place] Repository 10/31/2017/11/01/19 [id number] Ambulatory [address] [place] Repository 10/31/2017/11/03/19 [id number] Ambulatory [address] [place] Repository 08/29/2017 [id number] Ambulatory [facility] [place] Repository 08/29/2017/09/01/19 [id number] Ambulatory [address] [place] Repository 08/11/2017/08/12/19 [id number] Ambulatory BMSBuilding:[place] [address] [place].[facility] Repository 07/19/2017/07/21/19 [id number] Ambulatory [address] [place] Repository 06/09/2017/06/10/19 [id number] Ambulatory [address] Repository 05/09/2017/05/27/19 [id number] Ambulatory [address] Other [place] Repository 04/22/2017/04/22/19 [id number] Ambulatory [address] [place] Repository 03/30/2017/03/30/20 [id number] Ambulatory [address] [place] Repository 03/30/2017/04/05/20 [id number] Ambulatory [address] Repository PAYERS PAYERS ENCOUNTER GUARANTOR PAYER SUBSCRIBER SOURCE 03/16/2018 RONNIE Fox [id number] Insurance:CARESOURCEP SELLERSDOB: [facility]: [id number] [address]Flb: [id number] Repository Date:2018-03-13 O ) [address]ATTN: [place] [address]FU: 03/16/2018 Secondary NOT GIVENUNK Domin[place] Insurance:SELF PAY [facility] Number: Effective Repository Date:2018-03-16 03/09/2018 RONNIE VILLATOROIE Aroldo GustafsonDominique [id number] Insurance:CARESOURCEP SELLERSDOB: [facility] Number: [id number] [address]Mrd: [id number] Repository Date:2018-02-15P O (HP) [address]ATTN: [place] [address]CA: 03/09/2018 Secondary NOT GIVENUNK [place] Insurance:SELF PAY [facility] Number: Effective Repository Date:2018-03-09 03/09/2018 RONNIE Kendrick Primary RONNIE Kendrick Domin[place] [id number] Insurance:CARESOURCEP SELLERSDOB: [facility] Number: [id number] [facility] [address]Ouj: [id number] Repository Date:2018-02-15P O (HP) [address]ATTN: [place] [address]YX: 03/09/2018 Secondary NOT GIVENUNK [place] Insurance:SELF PAY [facility] Number: Effective Repository Date:2018-02-15 02/13/2018 Shane Kendrick Primary RONNIE Gustafsonoster [id number] S Insurance:CARESOURCEP SELLERSDOB: [facility] Number: [id number] [id number] Repository [address]Vhz: 330) Date:2018-02-06P O [phone] (HP) [address]ATTN: [place] [address]GS: 02/13/2018 Secondary NOT GIVENUNK Dominique Insurance:SELF PAY [facility] Number: Effective Repository Date:2018-02-06 08/11/2017 Shane Kendrick Primary RONNIE Fox [id number] S Insurance:CARESOURCEP SELLERSDOB: [facility] Number: [id number] [id number] Repository [address]Kwj: Date:2017-06-01P O [phone] [address]ATTN: CLAIMS 3 (HP) [place] [address]JD: 08/11/2017 Secondary NOT GIVENUNK [place] Insurance:SELF PAY [facility] Number: Effective Repository Date:2017-06-01
== END 2018-03-09 15:42 | disposition home or self-care (01) ==
LOC: SDC 10:57 → AC 11:32
PROVIDERS: Family Provider Student in an Organized Health Care Education/Training Program; PCP Student in an Organized Health Care Education/Training Program; Referring Provider Surgery; Visit Provider Surgery
PROC: (CPT 64721; principal; 2018-03-09 12:45)
DX: G56.02 Carpal tunnel syndrome, left upper limb (principal); D64.9 Anemia, unspecified; A60.00 Herpesviral infection of urogenital system, unspecified; E78.00 Pure hypercholesterolemia, unspecified; E07.9 Disorder of thyroid, unspecified; E55.9 Vitamin D deficiency, unspecified; F34.1 Dysthymic disorder; G47.33 Obstructive sleep apnea (adult) (pediatric); K21.9 Gastro-esophageal reflux disease without esophagitis; F32.9 Major depressive disorder, single episode, unspecified; Z79.899 Other long term (current) drug therapy; Z86.718 Personal history of other venous thrombosis and embolism; Z90.710 Acquired absence of both cervix and uterus
CPT/HCPCS: 64721; 36415; 80048; 85027; 93005; J7120

== ENCOUNTER 2023-07-29 08:41 | Emergency (ER) | payer OTHER, BC, SELFPAY ==
[2023-07-29 08:43] VITALS: BP 136/61; PULSE 84; RESP 18; TEMP 36.3; O2SAT 96
--- NOTE | 2023-07-29 09:10 | RAD_ITS ---
STUDY: X-RAY - RIGHT KNEE REASON FOR EXAM: Female, 52 years old. Pain. Unable to bear weight following injury. TECHNIQUE: 4 view(s) of the knee. COMPARISON: None. FINDINGS: Normal visualized distal femur. Normal visualized proximal tibia and fibula. Normal proximal tibiofibular articulation. Normal medial femorotibial compartment. Normal lateral femorotibial compartment. Normal patellofemoral articulation. Small joint effusion. RAD/Knee 4 or More Views IMPRESSION: Small joint effusion. Electronically Signed: Harpal Arzate MD at 9:32 EDT ,
--- NOTE | 2023-07-29 09:48 | EDS_ITS ---
HPI History of Present Illness HPI Narrative: 52-year-old female no significant prior history of knee problems or knee surgery. She was at work some was coming through the door she went to step back return and felt discomfort in her right medial knee and thigh area. No fall injury or trauma. Prior to today said it was not giving her any problem. No fever or redness. No significant swelling. Painful to walk on now. This occurred around 7:30 AM today at work. They do want make it Worker's Comp. Chief Complaint: Lower Extremity Injury Informant: patient and spouse/S.O. Occured/Mechanism Mechanism/Context: Yes injury Onset/Context/Timing Onset: Today Context: Sudden Onset Timing: Continuous Quality of Pain: Sharp Current Severity: Mild Maximum Severity: Mild Associated Symptoms Associated Symptoms: Negative for Parasthesia, Weakness or Loss of Funtion Narrative Narrative: 52-year-old female right knee injury at work. Can walk but has pain with walking. No prior history of surgery. Prior similar symptoms: No Recent Illness/Hospitalization: No PFSH PFSH Medical History Anemia Carpal tunnel syndrome Carpal tunnel syndrome of left wrist Depression Diastasis of rectus abdominis (~12/2015) Dysthymic disorder Frequent headaches Genital herpes in women (~01/2007) GERD (gastroesophageal reflux disease) HSV (herpes simplex virus) anogenital infection Hypercholesteremia (~05/2015) Onychomycosis SHAINA (obstructive sleep apnea) (~04/2017) Vision problems Vitamin D deficiency Home Medications calcium carbonate 500 mg-vitamin D3 5 mcg (200 unit) tablet 1 ea PO DAILY 11/03/15 [History Last Taken Unknown] levothyroxine 75 mcg tablet 75 mcg PO DAILY 11/03/15 [History Last Taken 03/09/18 07:00 75 MCG] multivitamin 1 ea PO DAILY 11/03/15 [History Last Taken Unknown] trazodone 50 mg tablet 50 mg PO QHS 11/03/15 [History Last Taken Unknown] venlafaxine 150 mg capsule,extended release 24 hr 150 mg PO DAILY 11/03/15 [History Last Taken Unknown] magnesium 250 mg tablet 250 mg PO DAILY 02/13/18 [History Last Taken Unknown] omeprazole 20 mg capsule,delayed release 40 mg PO QDAY 02/13/18 [History Last Taken 03/09/18 07:00 40 MG] Allergy/AdvReac Type Severity Reaction Status Date / Time fluoxetine HCl [From Prozac] AdvReac Other Verified 07/29/23 08:42 Family History Mother Anesthesia complication High cholesterol Thyroid disorder Father Anxiety Depression Diabetes High cholesterol CVA (cerebral vascular accident) Sister Thyroid disorder Grandmother Breast cancer Cancer Grandfather Cancer Surgical History History of appendectomy History of carpal tunnel surgery of right wrist (~09/2016) History of thyroid nodule (~07/2007) History of thyroid surgery (~08/2007) History of vaginal hysterectomy (~11/2009) Social History household members: spouse number of children: 3 current occupational status: unemployed Smoking Status: Never smoker alcohol intake: never substance use type: does not use additional social history: CONTROL/PROTECTION: HAD VASECTOMY AND SHE HAS HAD A HYSTERECTOMY ROS ROS ED ROS Narrative Denies recent illness. Review of Systems ROS Unobtainable: Denies due to encephalopathy Constitutional Constitutional ED: Denies chills or fever(s) Eyes Eyes: Denies blurry vision ENT ENT ED: Denies ear pain Cardiovascular Cardiovascular: Denies chest pain or palpitations Respiratory/Chest Respiratory/Chest: Denies cough or dyspnea Gastrointestinal Gastrointestinal: Denies abdominal pain Genitourinary Genitourinary ED: Denies dysuria or hematuria Musculoskeletal Musculoskeletal: Denies arthralgias or back pain Integumentary Denies abscess or Abrasions Neurologic Neurologic: Denies headache(s) Psychiatric Psychiatric: Denies anxiety or depression Endocrine Endocrinology: Denies polydipsia or polyphagia Hematologic/Lymphatic Hematologic/Lymphatic: Denies easy bleeding, easy bruising or lymphadenopathy Allergic/Immunologic Allergic/Immunologic ED: Denies mouth swelling, tongue swelling or urticaria EXAM Physical Exam Narrative Exam Narrative: Well-appearing 52-year-old female. Vital signs stable afebrile. HEENT exam unremarkable. Neck nontender no lymphadenopathy. Lungs clear to auscultation bilaterally. Heart regular rhythm no murmur. Chest wall nontender. Abdomen soft nontender. Back nontender. Moving all 4 extremities. Neurovascular int act. Nontender. No edema. Specifically right hip nontender normal range of motion. Right knee tenderness along the right medial thigh and hamstring going down to the knee. ACL and PCL are intact. MCL and LCL are intact. No significant effusion. She is able to do flexion extension with some discomfort. No large effusion or swelling. No redness or warmth. No bony deformity. Quadriceps patella and infrapatellar tendon are all intact. She has normal straight leg raise. Normal flexion extension with some discomfort. Normal dorsi plantarflexion. The calf and lower leg is nontender. The right foot is neurovascularly intact. Left lower extremity other extremities are unremarkable. Neurologic exam normal. Const Vital Signs: 07/29/23 08:43 Temperature 97.4 F L Temperature Source Temporal Pulse Rate 84 Respiratory Rate 18 Blood Pressure 136/61 H Blood Pressure Mean 86 Pulse Ox 96 Oxygen Delivery Method Room Air Positive well nourished and well developed; Negative for cachectic, contractures or unkempt General Appearance ED: well developed; Negative for unkempt, cachectic or contractures Nutritional Appearance: Negative for cachectic HEENT Reports moist mucous membranes normocephalic and atraumatic; Negative for trauma or tenderness Eyes PERRL General Eye ED: Negative for other Neck full ROM and supple Thyroid: Negative for tender Lymph Lymphatic: Negative for other Chest Wall inspection of chest normal and palpation of chest normal Chest: Negative for other Resp normal respiratory effort, no retractions and clear to auscultation bilaterally Effort and Inspection: Negative for pain with movement Auscultation: Negative for rales, rhonchi, wheezes or diminished lung sounds Percussion: Negative for other Cardio regular rate, regular rhythm, S1 normal heart sound, S2 normal heart sound and no murmurs Rate: Negative for bradycardia or tachycardic Rhythm: Negative for abnormal rhythm Bruits: Negative for other GI non-tender, non-distended and no masses Inspection: Negative for abdominal distention Auscultation: normoactive bowel sounds Palpation: soft; Negative for tender, guarding or rebound tenderness present Back/Spine no CVA tenderness General Back: Negative for CVA tenderness Cervical Spine: Negative for cervical spine tenderness Thoracic Spine / Upper Back: Negative for thoracic spinal tenderness Lumbar Spine / Lower Back: Negative for lumbar spinal tenderness Extremity normal to inspection and full ROM Extremity Narrative: Right knee mild tenderness along the medial hamstring and thigh. Full flexion extension of right knee. No effusion. Mild discomfort. Ligaments are intact. Tendons appear to be intact. No significant effusion. No signs of infection. Right lower leg is neurovascularly intact and nontender. Exam consistent with a strain or sprain. General Extremety ED: Negative for cyanosis, edema or weight-bearing difficulty General Extremity: Negative for cyanosis, edema or weight-bearing difficulty Neuro oriented x3, CN's II-XII intact bilaterally, moves all extremities and no sensory deficits noted Sensorium / Orientation: alert, oriented to person, oriented to place and oriented to time; Negative for orientation impaired, confused, lethargic or stuporous Motor Exam: strength 5/5 throughout Psych mental status grossly normal Appearance: Negative for unkempt Speech: No other Mood & Affect: Negative for anxious Skin no wounds Lesions: no lesions Rashes: no rashes Trauma: Negative for abrasion, laceration or puncture MDM MDM MDM Narrative Medical decision making narrative: 52-year-old female right knee injury at work. Appears to be muscle strain sprain. There is no significant swelling. No signs of infection. X-ray is unremarkable other than mild effusion according the radiologist. Treated as it knee sprain/strain. Orthopedic follow-up if not improving for further evaluation to rule out a meniscal injury which is less likely. Patient given Motrin for pain. Crutches to ambulate because she has pain with walking. History & Record Review Discussion w/independent historian: Patient and Family Radiography Diagnostic Testing: Clinical Impression(s) from Imaging Studies Knee X-Ray 07/29/23 09:10 IMPRESSION: Small joint effusion. Electronically Signed: Harpal Arzate MD at 9:32 EDT , Right knee x-ray, 4 views, interpreted by myself and radiologist. There is no acute bony abnormality. No fracture. No dislocation. No significant swelling. Radiologist is reading small effusion. Discharge Plan Triage Chief Complaint: Lower Extremity Injury ED Provider: Kurt Rosenberg Dx/Rx/DC Orders Clinical Impression: Muscle strain of left knee, Encounter related to worker's compensation claim Instructions: ED Muscle Strain, Extremity Prescriptions: No Action omeprazole 20 mg capsule,delayed release(DR/EC) 40 mg PO QDAY magnesium 250 mg tablet 250 mg PO DAILY multivitamin 1 EACH tablet 1 ea PO DAILY trazodone 50 MG tablet 50 mg PO QHS venlafaxine 150 MG capsule 150 mg PO DAILY levothyroxine 75 MCG tablet 75 mcg PO DAILY calcium carbonate-vitamin D3 1 EACH tablet 1 ea PO DAILY Primary Care Provider: Stanley Sweeney Referrals: Stanley Sweeney DO [Primary Care Provider] - Max Sotelo MD [Med Staff - Active Staff] - 1-2 Weeks Activity Restrictions/Additional Instructions: Ice, elevate and rest your left knee for pain and swelling. Motrin and Tylenol for pain and swelling. This may just be a muscle strain if it is not should improve if not improving you need to follow-up with orthopedics for further evaluation. I referred you to Dr. Max Sotelo. Crutches to help you get around if the pain is improving you can slowly start walking on it and bearing weight. Disposition Disposition: Home, Self Care
[2023-07-29] MEDS: Ibuprofen 400 MG Tablet 800 MG PO (09:59)
[2023-07-29 10:08] VITALS: BP 125/76; PULSE 61; RESP 15; TEMP 36.7; O2SAT 97
== END 2023-07-29 10:09 | disposition home or self-care (01) ==
PROVIDERS: Emergency Provider Emergency Medicine; PCP Student in an Organized Health Care Education/Training Program; Visit Provider Emergency Medicine
DX: S86.812A Strain of other muscle(s) and tendon(s) at lower leg level, left leg, initial encounter (principal); X58.XXXA Exposure to other specified factors, initial encounter; Y99.0 Civilian activity done for income or pay; E78.00 Pure hypercholesterolemia, unspecified; K21.9 Gastro-esophageal reflux disease without esophagitis
CPT/HCPCS: 73564; 99283

== ENCOUNTER 2024-01-10 10:26 | Emergency (ER) | payer OTHER, SELFPAY ==
[2024-01-10 10:26] VITALS: BP 126/71; PULSE 92; RESP 14; TEMP 36.7; O2SAT 96; BMI 41.8
--- NOTE | 2024-01-10 10:45 | EDS_ITS ---
HPI History of Present Illness Chief Complaint: Laceration Detail of Chief Complaint: Laceration volar surface left long finger Informant: patient Onset/Context/Timing Onset: Hours Mechanism/Context: Blunt Injury and Incised Location of pain/injuries: - (Volar distal surface left long finger) Quality of Pain: - (Not applicable) Current Severity: Gone Worsened by: Nothing Relieved by: Not applicable Associated Symptoms Associated Symptoms: Negative for Parasthesias, Weakness, Loss of function, Inability to ambulate, Loss of consciousness or Amnesia Narrative Narrative: Patient is a 53-year-old [id number] woman. She has history of hypothyroidism, peptic ulcer disease and depression. Patient was sent in from work because the laceration on the left finger would not stop bleeding. Tetanus is unknown. She denies paresthesia, anesthesia or motor weakness. She has no other complaints. Tetanus Immunization: Unknown Prior similar symptoms: Yes Recent Illness/Hospitalization: No [facility] Medical History (Updated 01/10/24 @ 10:[address] Gary Mojica MD) Carpal tunnel syndrome of left wrist Vitamin D deficiency Vision problems Frequent headaches Carpal tunnel syndrome GERD (gastroesophageal reflux disease) Anemia SHAINA (obstructive sleep apnea) (~04/2017) Onychomycosis Hypercholesteremia (~05/2015) HSV (herpes simplex virus) anogenital infection Genital herpes in women (~01/2007) Depression Dysthymic disorder Diastasis of rectus abdominis (~12/2015) Home Medications ?Medication ?Instructions ?Recorded ?Last Taken ?Type calcium 500 mg (as 1 ea PO DAILY 11/03/15 Unknown History carbonate)-vitamin D3 5 mcg (200 unit) tablet levothyroxine 75 mcg tablet 75 mcg PO DAILY 11/03/15 03/09/18 07:00 History 75 MCG multivitamin 1 ea PO DAILY 11/03/15 Unknown History trazodone 50 mg tablet 50 mg PO QHS 11/03/15 Unknown History venlafaxine 150 mg 225 mg PO DAILY 11/03/15 Unknown History capsule,extended release 24 hr furosemide 40 mg tablet 40 mg PO BID 01/10/24 Unknown History loratadine 10 mg tablet 10 mg PO DAILY 01/10/24 Unknown History metformin 500 mg tablet,extended 1,000 mg PO QPM 01/10/24 Unknown History release 24 hr pantoprazole 40 mg tablet,delayed 40 mg PO DAILY 01/10/24 Unknown History release phentermine 37.5 mg tablet 37.5 mg PO DAILY 01/10/24 Unknown History potassium chloride 10 mEq 10 meq PO DAILY 01/10/24 Unknown History tablet,extended release Allergy/AdvReac Type Severity Reaction Status Date / Time fluoxetine HCl (From Prozac) AdvReac Other Verified 01/10/24 10:27 Family History Mother Anesthesia complication High cholesterol Thyroid disorder Father Anxiety Depression Diabetes High cholesterol CVA (cerebral vascular accident) Sister Thyroid disorder Grandmother Breast cancer Cancer Grandfather Cancer Surgical History History of vaginal hysterectomy (~11/2009) History of thyroid surgery (~08/2007) History of thyroid nodule (~07/2007) History of carpal tunnel surgery of right wrist (~09/2016) History of appendectomy Social History household members: spouse number of children: 3 current occupational status: unemployed Smoking Status: Never smoker alcohol intake: never substance use type: does not use additional social history: CONTROL/PROTECTION: HAD VASECTOMY AND SHE HAS HAD A HYSTERECTOMY ROS [facility] ED Musculoskeletal Musculoskeletal: Denies arthralgias or myalgias Integumentary Reports other Details: Laceration volar distal surface of the left long finger Hematologic/Lymphatic Hematologic/Lymphatic: Denies easy bleeding or easy bruising EXAM Physical Exam Const Vital Signs: 01/10/24 10:26 Temperature 98.1 F Temperature Source Temporal Pulse Rate 92 Respiratory Rate 14 Blood Pressure 126/71 H Blood Pressure Mean 89 Pulse Ox 96 Oxygen Delivery Method Room Air Positive well nourished and well developed General Appearance ED: well developed and NAD HEENT atraumatic; Negative for tenderness Eyes PERRL and EOMs intact bilaterally Resp normal respiratory effort Cardio regular rhythm Rate: regular rate Extremity full ROM; Negative for normal to inspection Extremity Narrative: Median, radial and ulnar nerve function intact. Flexor and extensor mechanism intact. Capillary refill is normal. Sensation is normal. There is no subungual hematoma. Patient has a 5 mm linear laceration distal volar surface of the left long finger. There is no active bleeding. Question if this goes past the dermis into the subcu tissue. Neuro oriented x3 and CN's II-XII intact bilaterally Neuro Narrative: Documented under the extremity portion of the EMR Skin Skin Narrative: Laceration left long finger as previously described MDM MDM MDM Narrative Medical decision making narrative: Update tetanus, wound care by nursing and discharged to home with appropriate home care instructions and follow-up with [facility]. Discharge Plan Triage Chief Complaint: Laceration ED Provider: Gary Mojica Dx/Rx/DC Orders Clinical Impression: Laceration of left middle finger, History of diabetes mellitus, type II Instructions: ED Laceration Superficial No Stitch Prescriptions: No Action multivitamin 1 EACH tablet 1 ea PO DAILY trazodone 50 MG tablet 50 mg PO QHS venlafaxine 150 MG capsule 225 mg PO DAILY levothyroxine 75 MCG tablet 75 mcg PO DAILY calcium carbonate-vitamin D3 1 EACH tablet 1 ea PO DAILY pantoprazole 40 mg tablet,delayed release (DR/EC) 40 mg PO DAILY furosemide 40 mg tablet 40 mg PO BID potassium chloride 10 mEq tablet extended release 10 meq PO DAILY metformin 500 mg tablet extended release 24 hr 1,000 mg PO QPM loratadine 10 mg tablet 10 mg PO DAILY phentermine 37.5 mg tablet 37.5 mg PO DAILY Primary Care Provider: Stanley Sweeney Referrals: [facility] [Group of Physicians] - 3-5 Days Stanley Sweeney DO [Primary Care Provider] - As Needed Print Language: Irish Disposition Disposition: Home, Self Care
[2024-01-10] MEDS: Diphth,Pertuss(Acell),Tet Vac 0.5 ML Vial IM (10:50)
[2024-01-10 11:02] VITALS: BP 126/71; PULSE 92; RESP 14; TEMP 36.7; O2SAT 96
== END 2024-01-10 11:34 | disposition home or self-care (01) ==
LOC: ED 11:23
PROVIDERS: Emergency Provider Emergency Medicine; PCP Student in an Organized Health Care Education/Training Program; Visit Provider Emergency Medicine
DX: S61.213A Laceration without foreign body of left middle finger without damage to nail, initial encounter (principal); E11.9 Type 2 diabetes mellitus without complications; W26.8XXA Contact with other sharp object(s), not elsewhere classified, initial encounter; E78.00 Pure hypercholesterolemia, unspecified; E03.9 Hypothyroidism, unspecified; G47.33 Obstructive sleep apnea (adult) (pediatric); K21.9 Gastro-esophageal reflux disease without esophagitis; F32.A Depression, unspecified; Z79.84 Long term (current) use of oral hypoglycemic drugs; Z79.890 Hormone replacement therapy; Z79.899 Other long term (current) drug therapy; Z90.710 Acquired absence of both cervix and uterus
CPT/HCPCS: 90715; 99282

== ENCOUNTER → 2024-02-21 | Outpatient (CLI) | payer OTHER, SELFPAY ==
[2024-02-21 13:45] LABS: Hematocrit 40.9 % (37-47); Hemoglobin 13.7 g/dL (12.0-15.0); Mean Corp Hgb Conc 33.5 g/dL (32-36); Mean Corpuscular Hgb 29.8 pg (27.0-32.0); Mean Corpuscular Volume 89.1 fL (81-99); Mean Platelet Vol. 8.5 fl (6.2-12.0); Platelet Count 290 K/mm3 (150-450); RBC Distribution Width CV 12.7 % (11.6-14.6); RBC Distribution Width SD 40.9 fl (35.1-43.9); Red Blood Count 4.59 M/mm3 (4.2-5.4); White Blood Count 7.7 K/mm3 (4.4-11.0)
[2024-02-21 14:03] LABS: Anion Gap 8 (5-15); BUN 13 mg/dL (7-18); BUN/Creat Ratio 15.3 RATIO (10-20); Calcium,Total 9.4 mg/dL (8.5-10.1); Chloride 104 mmol/L (98-107); Creatinine, Serum 0.85 mg/dL (0.55-1.02); EST Glomerular Filtration Rate 75 mL/min (>60); Est Glom Filt Rate - Afr Amer 90 mL/min (>60); Glucose 71 mg/dL (74-106); Potassium 3.1 mmol/L (3.5-5.1); Sodium Level 140 mmol/L (136-145)
[2024-02-21 14:14] LABS: Hemoglobin A1c 5.2 % (3.8-5.6)
== END | disposition home or self-care (01) ==
LOC: PSN 12:11
PROVIDERS: PCP Student in an Organized Health Care Education/Training Program; Referring Provider Physician Assistant; Visit Provider Physician Assistant
DX: Z01.810 Encounter for preprocedural cardiovascular examination (principal); Z01.812 Encounter for preprocedural laboratory examination
CPT/HCPCS: 36415; 80048; 83036; 85027; 93005

== ENCOUNTER 2025-03-07 10:46 | Emergency (ER) | payer BC, SELFPAY ==
[2025-03-07 10:46] VITALS: BP 118/65; PULSE 110; RESP 14; TEMP 36.1; O2SAT 98; BMI 40.3
--- NOTE | 2025-03-07 11:05 | EKG12_ITS ---
Test Reason : DIZZY Blood Pressure : */* mmHG Vent. Rate : 105 BPM Atrial Rate : 105 BPM P-R Int : 160 ms QRS Dur : 92 ms QT Int : 328 ms P-R-T Axes : 38 6 33 degrees QTcB Int : 433 ms Sinus tachycardia otherwise normal Confirmed by Levi Rivero ([id number]), city editor JAIME JURADO ([id number]) on 03/11/2025 8:35:12 AM Referred By: Confirmed By: Levi Rivero
--- NOTE | 2025-03-07 11:06 | EDS_ITS ---
HPI History of Present Illness Chief Complaint: General Illness Narrative Narrative: Patient is a 54-year-old female past medical history of GERD, SHAINA, anemia, hypercholesteremia, depression who presented to the emergency department the chief complaint of generalized not feeling well, fever, black stools for the past few days. She denies any sick contacts. States that few days ago she had right lower abdominal pain but states that this got better. She states that before bed she felt like she was starting to feel better and woke up this morning drenched in sweat she states. In triage noted states that there was a medication adjustment and she states that she was placed on a medication for menopause by her doctor and feels like this is worsening her symptoms. [facility] Medical History (Updated 03/07/25 @ 14:[address] Anton Hartley, ) Anxiety Hypothyroidism Cirrhosis Non-smoker CPAP (continuous positive airway pressure) dependence Sleep apnea Asthma Migraines Carpal tunnel syndrome of left wrist Vitamin D deficiency Vision problems Frequent headaches Carpal tunnel syndrome GERD (gastroesophageal reflux disease) Anemia SHAINA (obstructive sleep apnea) (~04/2017) Onychomycosis Hypercholesteremia (~05/2015) HSV (herpes simplex virus) anogenital infection Genital herpes in women (~01/2007) Depression Dysthymic disorder Diastasis of rectus abdominis (~12/2015) Home Medications ?Medication ?Instructions ?Recorded ?Last Taken ?Type calcium 500 mg (as 1 ea PO DAILY 11/03/15 Unkno wn History carbonate)-vitamin D3 5 mcg (200 unit) tablet levothyroxine 75 mcg tablet 75 mcg PO DAILY 11/03/15 1 05/09/17 07:00 History 75 MCG multivitamin 1 ea PO DAILY 11/03/15 Unkno wn History trazodone 50 mg tablet 50 mg PO QHS 11/03/15 Unknow n History venlafaxine 150 mg 225 mg PO DAILY 11/03/15 Unk nown History capsule,extended release 24 hr furosemide 40 mg tablet 40 mg PO BID 01/10/24 Unknow n History loratadine 10 mg tablet 10 mg PO DAILY 01/10/24 Unkn own History metformin 500 mg tablet,extended 1,000 mg PO QPM 01/09 Unknown History release 24 hr pantoprazole 40 mg tablet,delayed 40 mg PO DAILY 01/09 Unknown History release phentermine 37.5 mg tablet 37.5 mg PO DAILY 01/10/24 U nknown History potassium chloride 10 mEq 10 meq PO DAILY 01/10/24 Unk nown History tablet,extended release dicyclomine 20 mg tablet 20 mg PO TID PRN abdominal p ain 03/07/25 Unknown Rx #20 tabs ondansetron 4 mg disintegrating 4 mg PO Q6H PRN nausea and 03/07/25 Unknown Rx tablet vomiting #20 tabs pantoprazole 40 mg tablet,delayed 40 mg PO DAILY 30 da ys #40 tabs 03/07/25 Unknown Rx release Allergy/AdvReac Type Severity Reaction Status Date / Time fluoxetine HCl (From Prozac) AdvReac Other Verified 03/07/25 10:48 Family History Mother Anesthesia complication High cholesterol Thyroid disorder Father Anxiety Depression Diabetes High cholesterol CVA (cerebral vascular accident) Sister Thyroid disorder Grandmother Breast cancer Cancer Grandfather Cancer Surgical History (Updated 03/07/25 @ 11:31 by Yuliana Sykes) History of cholecystectomy History of vaginal hysterectomy (~11/2009) History of thyroid surgery (~08/2007) History of thyroid nodule (~07/2007) History of carpal tunnel surgery of right wrist (~09/2016) History of appendectomy Social History household members: spouse number of children: 3 current occupational status: unemployed Smoking Status: Never smoker alcohol intake: never substance use type: does not use additional social history: CONTROL/PROTECTION: HAD VASECTOMY AND SHE HAS HAD A HYSTERECTOMY ROS ROS ED ROS Narrative Constitutional: Complains of fever and chills as noted above, as well as lightheadedness denies headache, dizziness Eyes: Denies double vision blurry vision Cardiovascular: Denies chest pain Respiratory: Denies shortness of breath Abdomen: Complains of abdominal pain, nausea as noted above as well as dark stool for the past few days denies any blood thinners : Denies urinary symptoms Neurological: Complains of overall just generalized weakness and feeling unwell denies any numbness or tingling Musculoskeletal: Denies back pain Skin: Denies any rashes or lesions EXAM Physical Exam Narrative Exam Narrative: General: Patient was lying in bed did appear to be overall not feeling well no acute distress Head: Atraumatic, normocephalic Eyes: PERRL bilaterally, EOMI bilaterally, no conjunctival injection noted Neck: Soft, supple, trachea midline Cardiovascular: Patient tachycardic with a regular rhythm Respiratory: Clear to auscultation bilaterally Abdomen: Soft, nondistended, mild tenderness to palpation diffusely throughout h er abdomen no rebound or guarding on exam Extremities: Radial pulses +2/4 in the bilateral extremities, +5/5 strength noted in the bilateral lower extremities Neurological: Patient following commands that she was at [facility] the year is 2024 NIH of 0 GCS 15 Skin: Warm, dry, intact no rashes or lesions noted Const Vital Signs: 03/07/25 10:46 03/07/25 11:29 Temperature 97 F L Temperature Source Temporal Pulse Rate 110 H Respiratory Rate 14 Respiratory Pattern Normal Blood Pressure 118/65 Blood Pressure Mean 82 Pulse Ox 98 Oxygen Delivery Method Room Air MDM MDM MDM Narrative Medical decision making narrative: Patient is a 54-year-old female who presents to the emergency department the chief complaint of generalized not feeling well. On the differential diagnose includes but not limited to viral gastroenteritis, influenza, COVID, anemia, electrolyte abnormality. Once the workup is obtained reviewed she will be reevaluated. Patient be given IV fluids, Zofran. Patient CBC reviewed showed no evidence of leukocytosis white blood count normal at 6.9, hemoglobin 14.5, plate count was noted be 145. Patient sodium normal 134, potassium low at 3.9, creatinine normal at 0.89. Patient's AST and ALT were 93 and 55 respectively total bilirubin normal at 0.58. Patient urinalysis reviewed showed 500 leukocyte esterase negative nitrates 25-50 white cells with no bacteria she does not have any urinary symptoms. Patient CT abdomen pelvis with IV contrast showed upper abdominal lymphadenopathy seen in the Omar celiac and Omar pancreatic and portal caval veins mild stranding in this region. Etiology is nonspecific and includes infectious i and inflammatory processes. Status postcholecystectomy, fatty liver. Patient's fecal occult was positive she was given 40 mg of IV Protonix. Did discuss through the case with on-call union laborer Dr. Brennan who states the patient can follow-up in the outpatient setting. Did discuss this with the patient and female bedside they are advised to follow- up in the outpatient setting return with worsening symptoms or concerns. Patient was advised to take Protonix 40 mg twice daily for 5 days followed by 40 mg daily. Patient be given prescriptions for Bentyl and Zofran. She was noted to be febrile here in the emergency department she will be given a gram of Tylenol she highly likely has a viral illness causing her symptoms here today. All question concerns answered she was discharged home in a stable condition and is requesting work note which was provided Lab Data Labs: Laboratory Results - last 24 hr 03/07/25 03/07/25 11:10 11:30 WBC 6.9 RBC 4.90 Hgb 14.5 Hct 42.2 MCV 86.1 MCH 29.6 MCHC 34.4 RDW Std Deviation 41.4 RDW Coeff of Ambika 13.2 Plt Count 145 L MPV 8.6 Immature Gran % (Auto) 0.900 Neut % (Auto) 85.3 H Lymph % (Auto) 8.9 L Hendry % (Auto) 4.2 Eos % (Auto) 0.4 Baso % (Auto) 0.3 Absolute Neuts (auto) 5.8 Absolute Lymphs (auto) 0.61 L Nucleated RBC % 0 Sodium 134 Potassium 3.9 Chloride 96 L Carbon Dioxide 26.1 Anion Gap 12 BUN 12 Creatinine 0.89 Estim Creat Clear Calc 86.08 Est GFR (MDRD) Non-Af 77 BUN/Creatinine Ratio 13.9 Glucose 114 H Calcium 9.0 Total Bilirubin 0.58 AST 93 H ALT 55 H Alkaline Phosphatase 64 Total Protein 7.7 Albumin 4.1 Globulin 3.6 Albumin/Globulin Ratio 1.2 Lipase 27 Urine Color Yellow Urine Clarity Cloudy Urine pH 6.0 Ur Specific Arg[place] 1.025 Urine Protein 100 H Urine Glucose (UA) Normal Urine Ketones Negative Urine Occult Blood 150 H Urine Nitrite Negative Urine Bilirubin Negative Urine Urobilinogen 1 H Ur Leukocyte Esterase 500 H Urine RBC 0 SEEN Urine WBC 25-50 SEEN Ur Squamous Epith Cells 10-25 SEEN Amorphous Sediment 1+ URATE Urine Bacteria 0 SEEN Urine Mucus 0 SEEN Radiography Diagnostic Testing: Clinical Impression(s) from Imaging Studies Abdomen/Pelvis CT 03/07/25 13:20 IMPRESSION: 1. Upper abdominal lymphadenopathy is seen in the periceliac, peripancreatic and portacaval regions. Mild stranding in this region. Of note, the stomach, duodenum, pancreas appear normal. Spleen is normal size. Etiology is non-specific includes infectious and inflammatory processes. If symptoms persist, portacaval lymph node may be amenable to sampling by endoscopy. 2. Cholecystectomy 3. Fatty liver. Reading Location: [id number] Discharge Plan Triage Chief Complaint: General Illness ED Provider: Anton Hartley Dx/Rx/DC Orders Clinical Impression: Upper gastrointestinal bleed, Viral gastroenteritis, Fever, Abdominal pain Prescriptions: New pantoprazole 40 mg tablet,delayed release (DR/EC) 40 mg PO DAILY 30 Days Qty: 40 0RF Rx Instructions: Take 40 mg twice a day for 5 days and then 40 mg once daily dicyclomine 20 mg tablet 20 mg PO TID PRN (Reason: abdominal pain) Qty: 20 0RF ondansetron 4 mg tablet,disintegrating 4 mg PO Q6H PRN (Reason: nausea and vomiting) Qty: 20 0RF No Action multivitamin 1 EACH tablet 1 ea PO DAILY trazodone 50 MG tablet 50 mg PO QHS venlafaxine 150 MG capsule 225 mg PO DAILY levothyroxine 75 MCG tablet 75 mcg PO DAILY calcium carbonate-vitamin D3 1 EACH tablet 1 ea PO DAILY pantoprazole 40 mg tablet,delayed release (DR/EC) 40 mg PO DAILY furosemide 40 mg tablet 40 mg PO BID potassium chloride 10 mEq tablet extended release 10 meq PO DAILY metformin 500 mg tablet extended release 24 hr 1,000 mg PO QPM loratadine 10 mg tablet 10 mg PO DAILY phentermine 37.5 mg tablet 37.5 mg PO DAILY Stand Alone Forms: ED Work / School Excuse Primary Care Provider: Stanley Sweeney Referrals: Stanley Sweeney DO [Primary Care Provider, Medical] Kain Brennan DO [Med Staff - Active Staff, Gastroenterology] Activity Restrictions/Additional Instructions: Take the pantoprazole that you are prescribed 40 mg twice daily for 5 days and then take this once daily. Use other prescription sent to the pharmacy as prescribed. You likely have a viral illness causing your symptoms you need to take Tylenol every 6 hours for your fever control with a max dose of Tylenol in 24 hours 4000 mg. Do not take any NSAIDs such as ibuprofen Aleve Advil etc. follow-up with Dr. Brennan in the outpatient setting. Print Language: Belarusian Disposition Disposition: Home, Self Care
--- OUTSIDE RECORDS SUMMARY | 2025-03-07 11:13 | XMS RPT_ITS | CCD ---
Author Organization [facility] Care Team Providers Care Vp Site Name Role Phone [facility] Unavailable Unavailable [facility] Unavailable Unavailable PROVIDER, UNKNOWN Admitting Unavailable PROVIDER, UNKNOWN Attending Unavailable Stanley Sweeney DO Primary Care Provider Stanley Sweeney DO Primary Care Provider Stanley Sweeney DO L Primary Care Provider Stanley Sweeney DO Primary Care Provider STANLEY SWEENEY L Primary Care Unavailable ADIA ROBLES Referring Unavailable ANY, GINNA Attending Unavailable ANY, GINNA Admitting Unavailable STANLEY SWEENEY L Primary Care Unavailable ANY, GINNA Referring Unavailable ANY, GINNA Attending Unavailable STANLEY SWEENEY L Referring Unavailable SWEENEY, STANLEY L Primary Care Unavailable ANY, GINNA Attending Unavailable PATEL STANLEY L Primary Care Unavailable Stanley Sweeney DO Primary Care Provider Jorge A CONSULTING ACTUARY.Deisi BELLA Unavailable Travis CONSULTING ACTUARY.Adia BELLA Unavailable Cynthia Valle Attending Unavailable Cynthia Valle Referring Unavailable Sweeney, Stanley Primary Care Unavailable Gary Mojica Attending Unavailable Sweeney, Stanley Primary Care Unavailable Sweeney, Stanley Primary Care Unavailable Kurt Rosenberg Attending Unavailable Sweeney, Stanley Primary Care Unavailable Sweeney, Stanley Referring Unavailable Milad Newell Attending Unavailable Cynthia Valle Referring Unavailable Waldemar Turpin Attending Unavailable Sweeney, Stanley Primary Care Unavailable Allen CONSULTING ACTUARY.Jenifer BELAL Unavailable MANISHA GARRETT Attending Unavailable SWEENEY, STANLEY L Primary Care Unavailable TRAVIS, ADIA Attending Unavailable SWEENEY, STANLEY L Primary Care Unavailable TRAVIS, ADIA Referring Unavailable SWEENEY, STANLEY L Primary Care Unavailable JENIFER VILLA Attending Unavailable SELF Referring Unavailable SWEENEY, STANLEY L Primary Care Unavailable TRAVIS, ADIA Referring Unavailable SWEENEY, STANLEY L Primary Care Unavailable TRAVIS, ADIA Attending Unavailable SELF Referring Unavailable SWEENEY, STANLEY L Primary Care Unavailable EREN CALDERON Attending Unavailable TRAVIS, ADIA Referring Unavailable SWEENEY, STANLEY L Primary Care Unavailable TRAVIS, ADIA Referring Unavailable SWEENEY, STANLEY L Primary Care Unavailable JENIFER VILLA Referring Unavailable SWEENEY, STANLEY L Primary Care Unavailable SWEENEY, STANLEY L Referring Unavailable SWEENEY, STANLEY L Primary Care Unavailable TRAVIS, ADIA Attending Unavailable SWEENEY, STANLEY L Primary Care Unavailable TRAVIS, ADIA Referring Unavailable SWEENEY, STANLEY L Primary Care Unavailable SWEENEY, STANLEY L Primary Care Unavailable SETH GAN Referring Unavailable SWEENEY, STANLEY L Primary Care Unavailable SWEENEY, STANLEY L Referring Unavailable SWEENEY, STANLEY L Primary Care Unavailable Allergies Allergy Classification Reported Allergen(s) Allergy Type Date of Onset Reaction(s) Facility (20 sources) FLUoxetine; Translations: [FLUOXETINE HCL] Drug Allergy 2 Other: See Comments, Mental Status Change [facility] Medications Current Medications Medication Drug Class(es) Dates Sig (Normalized) Sig (Original) [id number] 200 actuat albuterol 0.09 mg/actuat metered dose inhaler (20 sources) beta2-Adrenergic Agonist Start: 05-02-2020 End: 05-12-2022 take 2 puff(s) by inhalation every four hours as needed albuterol HFA (PROVENTIL HFA, VENTOLIN HFA) 90 mcg/actuation inhaler Indications: Mild persistent asthma without complication (HCC) , Wheezing , SOB (shortness of breath) on exertion , Decreased lung sounds Inhale 2 Puffs as instructed every 4 hours as needed. 18 g 1 05/12/2022 Active Comment on above: Inhale 2 Puffs as in structed every 4 hours as needed. benzonatate 100 mg oral capsule (2 sources) Non-narcotic Antitussive Start: 03-01-2024 End: 03-08-2024 take 1 capsule by mouth every eight hours as needed benzonatate (TESSALON PERLE) 100 mg capsule Take 1 capsule by mouth three times a day as needed for cough for up to 7 days. 21 capsule 03/01/2024 03/08/2024 Active Budesonide / formoterol (20 sources) Corticosteroid, beta2-Adrenergic Agonist Start: 06-23-2022 take 2 puff(s) by inhalation twice daily budesonide-formote rol (SYMBICORT) 80-4.5 mcg/actuation inhaler Indications: Mild persistent asthma without complication (HCC) Inhale 2 Puffs as instructed twice daily. 14 g 2 06/23/2022 Active Start: 06-23-2022 take 2 puff(s) by in halation twice daily budesonide-formoterol (SYMBICORT) 80-4.5 mcg/actuation inhaler Indications: Mild persistent asthma without complication Inhale 2 Puffs as instructed twice daily. 14 g 2 06/23/2022 Active Start: 06-23-2022 End: 09-21-2022 take 2 puff(s) by inhalation twice daily budesonide-formoterol (SYMBICORT) 80-4.5 mcg/actuation inhaler Indications: Mild persistent asthma without complication Inhale 2 Puffs as instructed twice daily. 14 g 2 06/23/2022 09/21/2022 Active Comment on above: Inhale 2 Puffs as in structed twice daily. calcium carbonate 1500 mg / cholecalciferol 0.01 mg oral capsule (20 sources) Vitamin D Start: End: take 1 capsule by mouth once daily Calcium-Cholecalci ferol, D3, 600 mg-10 mcg (400 unit) cap Indications: Vitamin D deficiency Take 1 capsule by mouth once daily. 90 capsule 3 06/04/2024 Active Start: 06-10-2021 End: 01-06-2022 take 1 tablet by mouth twice daily calcium carbonate-vitamin D3 500 mg-15 mcg (600 unit) tab Indications: Vitamin D deficiency Take 1 tablet by mouth twice daily. 60 tablet 1 09/03/2021 01/06/2022 Discontinued Start: 02-06-2021 End: 04-06-2021 take 1 tablet by mouth twice daily calcium carbonate-vitamin D3 500mg (1,250mg) -600 unit tab Indications: Vitamin D deficiency Take 1 tablet by mouth twice daily. 60 tablet 1 02/06/2021 04/06/2021 Discontinued Start: 08-04-2020 End: 12-02-2020 take 1 tablet by mouth twice daily calcium carbonate-vitamin D3 500mg (1,250mg) -600 unit tab Indications: Vitamin D deficiency Take 1 tablet by mouth twice daily. 60 tablet 1 10/06/2020 12/02/2020 Discontinued Start: 11-03-2015 Calcium Carbon ate-Vitamin D3 Active 1 EACH PO DAILY November 03, 2015 12:00am Comment on above: Take 1 tablet by lorelei th twice daily. Take 1 capsule by mo [facility] once daily. cholecalciferol 0.05 mg oral tablet (20 sources) Vitamin D Start: 03-11-20 End: 04-06-20 take 1 tablet by mouth once daily cholecalciferol (VITAMIN D3) 50 mcg (2,000 unit) tablet Indications: Vitamin D insufficiency Take 1 tablet by mouth once daily. 90 tablet 3 04/07/2022 Active Comment on above: Take 1 tablet by lorelei th once daily. COMPOUNDED PRESCRIPTION (20 sources) Start: 06-02-19 COMPOUNDED PRESCRIPTION Indications: SHAINA (obstructive sleep apnea) CPAP Supplies; hose; mask DX: SHAINA 1 Each 06/02/2017 Active Start: 06-02-2017 COMPOUNDED PRE SCRIPTION Indications: SHAINA (obstructive sleep apnea) CPAP Supplies; hose; mask DX: SHAINA 1 Each 0 06/02/2017 Active Start: 03-30-2017 End: 05-12-2022 COMPOUNDED PRESCRIPTION Bruno rstep full length original Dx: plantar fasciitis 1 Device 03/30/2017 05/12/2022 Discontinued Start: 03-30-2017 End: 05-12-2022 COMPOUNDED PRESCRIPTION Bruno rstep full length original Dx: plantar fasciitis 1 Device 0 03/30/2017 05/12/2022 Discontinued Start: 03-30-2017 COMPOUNDED PRE SCRIPTION Powerstep full length original Dx: plantar fasciitis 1 Device 0 03/30/2017 Active Comment on above: Powerstep full lengt h original Dx: plantar fasciitis CPAP Supplies; hose; mask DX: SHAINA CPAP (20 sources) Start: 03-21-2019 CPAP Indications: SHAINA (obstructive sleep apnea) Initiate CPAP @ 10 cm of water with humidification. Mask (per patient preference) optional chin strap (if indicated) , filters, tubing, humidifier and lifetime supplies. 1 Device 03/21/2019 Active Start: 03-21-2019 CPAP Indicatio ns: SHAINA (obstructive sleep apnea) Initiate CPAP @ 10 cm of water with humidification. Mask (per patient preference) optional chin strap (if indicated) , filters, tubing, humidifier and lifetime supplies. 1 Device 0 03/21/2019 Active Comment on above: Initiate CPAP @ 10 c m of water with humidification. Mask (per patient preference) optional chin strap (if indicated) , filters, tubing, humidifier and lifetime supplies. dexamethasone phosphate 1 mg/ml ophthalmic solution (15 sources) Corticosteroid Start: 04-19-19 take 1 drop(s) into the eye(s) once daily as needed dexAMETHasone 0.1 % ophthalmic solution Indications: Ear itching Instill 1 drop into affected ear canal once daily as needed 5 mL 1 04/19/2024 Active furosemide 40 mg oral tablet (20 sources) Loop Diuretic Start: 11-10-19 End: 02-05-20 take 1 tablet by mouth twice daily furosemide (LASIX) 40 mg tablet Indications: Swelling of both hands , Leg swelling Take 1 tablet by mouth two times a day. 60 tablet 11 02/06/2024 Active Start: 03-08-2022 End: 08-26-2022 take 1 tablet by mouth twice daily furosemide (LASIX) 40 mg tablet Indications: Swelling of both hands , Leg swelling Take 1 tablet by mouth twice daily. 60 tablet 03/08/2022 08/26/2022 Discontinued Start: 01-05-2021 End: 01-06-2022 take 1 tablet by mouth twice daily furosemide (LASIX) 40 mg tablet Indications: Swelling of both hands , Leg swelling Take 1 tablet by mouth twice daily 60 tablet 0 03/10/2021 01/06/2022 Discontinued Start: 08-01-2020 End: 12-02-2020 take 1 tablet by mouth twice daily furosemide (LASIX) 40 mg tablet Indications: Swelling of both hands , Leg swelling Take 1 tablet by mouth twice daily. 60 tablet 3 08/01/2020 12/02/2020 Discontinued Comment on above: Take 1 tablet by lorelei th twice daily Take 1 tablet by lorelei th twice daily. levothyroxine sodium 0.088 mg oral tablet (20 sources) l-Thyroxine Start: End: take 1 tablet by mouth once daily levothyroxine (SYNTHROID) 88 mcg tablet Indications: Mike's disease Take 1 tablet by mouth once daily. 90 tablet 1 07/20/2024 01/16/2025 Active Start: 11-01-2022 End: 07-20-2024 take 1 tablet by mouth once daily, then take 1.5 tablets by mouth once daily in the morning levothyroxine (SYNTHROID) 75 mcg tablet Take 1 tablet by mouth daily 5 days per week. Take 1.5 tablets by mouth daily 2 days per week. Take in the morning on an empty stomach. 90 tablet 1 04/06/2024 07/20/2024 Discontinued Start: 04-07-2022 End: 10-30-2022 take 1 tablet by mouth once daily, then take 1.5 tablets by mouth once daily in the morning levothyroxine (SYNTHROID) 75 mcg tablet Take 1 tablet by mouth daily 5 days per week. Take 1.5 tablets by mouth daily 2 days per week. Take in the morning on an empty stomach. 90 tablet 1 04/07/2022 10/30/2022 Discontinued Start: 11-03-2015 End: 2021 take 1 tablet by mouth once daily before breakfast levothyroxine (SYNTHROID) 75 mcg tablet Take 1 tablet by mouth daily before breakfast. 30 tablet 11 03/17/2020 03/07/2021 Discontinued Comment on above: Take 1 tablet by lorelei th daily before breakfast. Take 1 tablet by lorelei th daily 5 days per week. Take 1.5 tablets by mouth daily 2 days per week. Take in the morning on an empty stomach. loratadine 10 mg oral tablet (20 sources) Start: End: take 1 tablet by mouth once daily loratadine (CLARITIN) 10 mg tablet Indications: Mild persistent asthma without complication (HCC) Take 1 tablet by mouth once daily. 30 tablet 11 07/18/2024 Active Start: 05-11-2021 End: 08-15-2021 take 1 tablet by mouth once daily loratadine (CLARITIN) 10 mg tablet Indications: Mild persistent asthma without complication Take 1 tablet by mouth once daily. 30 tablet 11 05/11/2021 08/15/2021 Discontinued Start: 07-18-2020 End: 05-09-2021 take 1 tablet by mouth once daily loratadine (CLARITIN) 10 mg tablet Indications: Mild persistent asthma without complication Take 1 tablet by mouth once daily. 30 tablet 11 07/18/2020 05/09/2021 Discontinued Comment on above: Take 1 tablet by lorelei th once daily. Magnesium (1 source) Start: take 250 mg by mouth once daily Magnesium Active 250 MG PO DAILY February 13, 2018 1:00am 24 hr metFORMIN hydrochloride 500 mg extended release oral tablet (20 sources) Biguanide Start: End: take 40-44.9 tablets by mouth once daily metFORMIN ER (GLUCOPHAGE XR) 500 mg 24 hr tablet Indications: Class 3 severe obesity with body mass index (BMI) of 40.0 to 44.9 in adult, unspecified obesity type, unspecified whether serious comorbidity present (HCC) , IFG (impaired fasting glucose) Take 2 tablets by mouth once daily. With dinner. 180 tablet 2 11/19/2024 08/16/2025 Active Start: 09-19-2023 End: 07-18-2024 take 40-44.9 tablets by mouth once daily metFORMIN ER (FORTAMET) 1,000 mg 24 hr tablet Indications: Class 3 severe obesity with body mass index (BMI) of 40.0 to 44.9 in adult, unspecified obesity type, unspecified whether serious comorbidity present (HCC) Take 1 tablet by mouth daily with dinner. Generic okay 90 tablet 1 05/07/2024 07/18/2024 Discontinued Start: 08-16-2023 End: 11-19-2024 take 1 tablet by mouth once daily at dinner, then take 2 tablets by mouth once daily at dinner metFORMIN ER (FORTAMET) 500 mg 24 hr tablet Take 1 tablet by mouth daily with dinner. Take two tablets by mouth daily with dinner. 180 tablet 1 09/20/2023 11/19/2024 Discontinued Multivitamin preparation (1 source) Start: 11-03-2015 Multivitamin A ctive 1 EACH PO DAILY November 03, 2015 12:00am multivitamins(DAILY VITAMIN TAB) (20 sources) Start: 09-11-2009 multivitamins( DAILY VITAMIN TAB) Take one(1) tablet daily. 0 09/11/2009 Active Comment on above: Take one(1) tablet d aily. omeprazole 20 mg delayed release oral capsule (2 sources) Proton Pump Inhibitor Start: 02-13-2018 take 40 mg by mouth once daily Omeprazole Active 40 MG PO daily February 13, 2018 4:30pm Start: 07-26-2017 End: 02-13-2018 take 20 mg by mouth once daily Omeprazole Discontinued 20 MG PO daily July 26, 2017 12:00am February 13, 2018 4:32pm pantoprazole 40 mg delayed release oral tablet (20 sources) Proton Pump Inhibitor Start: 11-02-2021 End: 07-18-2024 take 1 tablet by mouth once daily pantoprazole DR (PROTONIX) 40 mg tablet Indications: Gastroesophageal reflux disease without esophagitis , Belching Take 1 tablet by mouth once daily. 30 tablet 5 07/18/2024 Active Start: 04-08-2021 End: 10-31-2021 take 1 tablet by mouth once daily pantoprazole DR (PROTONIX) 40 mg tablet Indications: Gastroesophageal reflux disease without esophagitis , Belching Take 1 tablet by mouth once daily. 30 tablet 5 04/08/2021 10/31/2021 Discontinued Start: 04-15-2020 End: 04-06-2021 take 1 tablet by mouth once daily pantoprazole DR (PROTONIX) 40 mg tablet Indications: Gastroesophageal reflux disease without esophagitis , Belching Take 1 tablet by mouth once daily. 30 tablet 5 10/17/2020 04/06/2021 Discontinued Start: 11-03-2015 End: 07-26-2017 take 40 mg by mouth once daily Pantoprazole Discontinued 40 MG PO DAILY November 03, 2015 12:00am July 26, 2017 11:46am Comment on above: Take 1 tablet by lorelei th once daily. phentermine hydrochloride 37.5 mg oral tablet (20 sources) Sympathomimetic Amine Anorectic Start: 11-20-19 End: 02-18-20 take 1 tablet by mouth once daily Phentermine HCl 37.5 mg tablet Indications: Class 3 severe obesity with body mass index (BMI) of 40.0 to 44.9 in adult, unspecified obesity type, unspecified whether serious comorbidity present (HCC) Take 1 tablet by mouth once daily for 90 days. BMI 40.33 30 tablet 2 11/19/2024 02/17/2025 Active Start: 01-10-2024 End: 10-16-2024 take 1 tablet by mouth once daily Phentermine HCl 37.5 mg tablet Indications: Class 3 severe obesity with body mass index (BMI) of 40.0 to 44.9 in adult, unspecified obesity type, unspecified whether serious comorbidity present (HCC) Take 1 tablet by mouth once daily for 90 days. BMI 42.62 30 tablet 2 07/18/2024 10/16/2024 Active Start: 09-19-2023 End: 10-19-2023 take 1 tablet by mouth once daily Phentermine HCl (ADIPEX-P) 37.5 mg tablet Indications: Class 3 severe obesity with body mass index (BMI) of 40.0 to 44.9 in adult, unspecified obesity type, unspecified whether serious comorbidity present (HCC) Take 1 tablet by mouth once daily for 30 days. BMI 44.46 30 tablet 2 09/19/2023 10/19/2023 Active Start: 08-16-2023 End: 09-15-2023 take 1 tablet by mouth once daily Phentermine HCl (ADIPEX-P) 37.5 mg tablet Indications: Class 3 severe obesity with body mass index (BMI) of 40.0 to 44.9 in adult, unspecified obesity type, unspecified whether serious comorbidity present (HCC) Take 1 tablet by mouth once daily for 30 days. BMI 44.46 30 tablet 2 08/16/2023 09/15/2023 Active potassium chloride 10 meq extended release oral tablet (20 sources) Start: 09-12-2023 End: 11-19-2024 take 1 tablet by mouth once daily at breakfast potassium chloride (K-TAB) 10 mEq tablet Indications: Hypokalemia Take 1 tablet by mouth daily with breakfast. 90 tablet 1 11/19/2024 Active Start: 04-07-2022 End: 09-10-2023 take 1 tablet by mouth once daily at breakfast potassium chloride (K-TAB) 10 mEq tablet Indications: Hypokalemia Take 1 tablet by mouth daily with breakfast. 90 tablet 1 04/07/2022 01/09/2023 Discontinued Start: 02-08-2022 take 1 tablet by lorelei th once daily at breakfast potassium chloride (K-TAB) 10 mEq tablet Indications: Hypokalemia Take 1 tablet by mouth daily with breakfast. 30 tablet 0 02/08/2022 Active Start: 11-02-2021 End: 01-06-2022 take 1 tablet by mouth once daily at breakfast potassium chloride (K-TAB) 10 mEq tablet Indications: Hypokalemia Take 1 tablet by mouth daily with breakfast. 30 tablet 0 11/02/2021 01/06/2022 Discontinued Start: 06-10-2021 End: 10-31-2021 take 1 tablet by mouth once daily at breakfast potassium chloride (K-TAB) 10 mEq tablet Indications: Hypokalemia Take 1 tablet by mouth daily with breakfast. 30 tablet 0 09/03/2021 10/31/2021 Discontinued Start: 08-01-2020 End: 04-06-2021 take 1 tablet by mouth once daily at breakfast potassium chloride (K-TAB) 10 mEq tablet Indications: Hypokalemia Take 1 tablet by mouth daily with breakfast. 30 tablet 3 12/03/2020 04/06/2021 Discontinued Comment on above: Take 1 tablet by lorelei th daily with breakfast. Take 1 tablet by lorelei th once daily with breakfast traZODone hydrochloride 50 mg oral tablet (20 sources) Serotonin Reuptake Inhibitor Start: End: take 1 tablet by mouth once daily at bedtime traZODone (DESYREL) 50 mg tablet Indications: Primary insomnia Take 1 tablet by mouth daily at bedtime. 90 tablet 3 04/06/2024 Active Start: 11-03-2015 End: 01-09-2023 take 1 tablet by mouth once daily at bedtime traZODone (DESYREL) 50 mg tablet Indications: Primary insomnia Take 1 tablet by mouth daily at bedtime. 90 tablet 3 07/09/2020 05/09/2021 Discontinued Comment on above: Take 1 tablet by lorelei th daily at bedtime. valACYclovir 1000 mg oral tablet (1 source) Herpesvirus Nucleoside Analog DNA Polymerase Inhibitor, Herpes Simplex Virus Nucleoside Analog DNA Polymerase Inhibitor, Herpes Zoster Virus Nucleoside Analog DNA Polymerase Inhibitor Start: 07-16-19 End: 07-21-19 take 1 tablet by mouth once daily valACYclovir (VALTREX) 1 gram Take 1 tablet by mouth once daily for 5 days. 5 tablet 0 07/15/2021 07/20/2021 Active Comment on above: Take 1 tablet by lorelei once daily for 5 days. 24 hr venlafaxine 150 mg extended release oral capsule (20 sources) Serotonin and Norepinephrine Reuptake Inhibitor Start: 12-05-19 take 1 capsule by mouth once daily venlafaxine ER (EFFEXOR XR) 150 mg 24 hr capsule Take 1 capsule by mouth once daily 90 capsule 12/04/2024 Active Start: 12-14-2022 End: 06-01-2025 take 1 capsule by mouth once daily venlafaxine ER (EFFEXOR XR) 75 mg 24 hr capsule Take 1 capsule by mouth once daily. 90 capsule 1 12/03/2024 06/01/2025 Active Start: 12-14-2022 End: 12-01-2024 take 1 capsule by mouth once daily venlafaxine ER (EFFEXOR XR) 150 mg 24 hr capsule Take 1 capsule by mouth once daily. 90 capsule 1 06/04/2024 Active Start: 05-15-2021 End: 12-10-2022 take 1 capsule by mouth once daily venlafaxine ER (EFFEXOR XR) 75 mg 24 hr capsule Take 1 capsule by mouth once daily. 90 capsule 1 05/12/2022 12/10/2022 Discontinued Start: 10-29-2020 End: 04-06-2021 take 1 tablet by mouth once daily venlafaxine XR (EFFEXOR XR) 225 mg tr24 Indications: Anxiety with depression Take 1 tablet by mouth once daily. 30 tablet 3 10/29/2020 04/06/2021 Discontinued Start: 11-03-2015 End: 12-10-2022 take 1 capsule by mouth once daily venlafaxine ER (EFFEXOR XR) 150 mg 24 hr capsule Take 1 capsule by mouth once daily. 30 capsule 5 04/07/2020 10/05/2020 Discontinued Comment on above: Take 1 capsule by mo [facility] once daily. Completed/Discontinued Medications Medication Drug Class(es) Dates Sig (Normalized) Sig (Original) acetaminophen 325 mg / butalbital 50 mg / caffeine 40 mg oral tablet (1 source) Barbiturate, Central Nervous System Stimulant, Methylxanthine Start: 11-03-2015 End: 07-26-2017 take 2 tablets by mouth every four hours as needed Butalbital-Acetamin ophen-Caff Discontinued 2 TABLET PO EVERY 4 HOURS NEEDED November 03, 2015 12:00am July 26, 2017 11:42am acetaminophen 325 mg / HYDROcodone bitartrate 5 mg oral tablet (2 sources) Opioid Agonist Start: 03-09-2018 End: 03-12-2018 take 1 tablet by mouth every six hours as needed Hydrocodone-Acetami nophen Discontinued 1 TABLET PO EVERY 6 HOURS NEEDED 10 March 09, 2018 1:00am March 12, 2018 1:10am aspirin 325 mg oral tablet (1 source) Platelet Aggregation Inhibitor, Nonsteroidal Anti-inflammatory Drug Start: 07-26-2017 End: 02-13-2018 take 325 mg by mouth once daily Aspirin Discontinued 325 MG PO daily July 26, 2017 12:00am February 13, 2018 4:31pm atropine sulfate 0.025 mg / diphenoxylate hydrochloride 2.5 mg oral tablet (6 sources) Anticholinergic, Cholinergic Muscarinic Antagonist, Antidiarrheal Start: 07-09-2024 End: 11-19-2024 take 1 tablet by mouth every six hours as needed for diarrhea and diarrhea diphenoxylate-atrop ine (LOMOTIL) 2.5-0.025 mg per tablet Indications: Diarrhea, unspecified type Take 1 tablet by mouth four times a day as needed for up to 2 days. 4 tablet 1 07/09/2024 11/19/2024 Discontinued breath-actuated 120 actuat beclomethasone dipropionate 0.08 mg/actuat metered dose inhaler (20 sources) Corticosteroid Start: 02-06-2021 End: 06-23-2022 take 2 puff(s) by inhalation twice daily beclomethasone (QVAR REDIHALER) 80 mcg/actuation inhaler Indications: Mild persistent asthma without complication Inhale 2 Puffs as instructed twice daily. 10.6 g 5 02/06/2021 05/12/2022 Discontinued Start: 07-18-2020 End: 11-17-2020 take 2 puff(s) by inhalation twice daily beclomethasone (QVAR REDIHALER) 80 mcg/actuation inhaler Indications: Mild persistent asthma without complication Inhale 2 Puffs as instructed twice daily. 10.6 g 5 07/18/2020 11/17/2020 Discontinued Comment on above: Inhale 2 Puffs as in structed twice daily. Blood Pressure Monitor (BLOOD PRESSURE KIT) (20 sources) Start: 12-11-2019 End: 04-07-2023 Blood Pressure Monitor (BLOOD PRESSURE KIT) Indications: Leg swelling , Elevated blood pressure reading without diagnosis of hypertension 1 Each once daily. 1 Kit 12/11/2019 04/07/2023 Discontinued Start: 12-11-2019 Blood Pressure Monitor (BLOOD PRESSURE KIT) Indications: Leg swelling , Elevated blood pressure reading without diagnosis of hypertension 1 Each once daily. 1 Kit 0 12/11/2019 Active Comment on above: 1 Each once daily. cyclobenzaprine hydrochloride 5 mg oral tablet (1 source) Muscle Relaxant Start: End: take 1 tablet by mouth three times daily as needed for muscle spasms cyclobenzaprine (FLEXERIL) 5 mg tablet Indications: Strain of left trapezius muscle, initial encounter Take 1 tablet by mouth three times daily as needed for muscle spasm for up to 10 days. 30 tablet 10/01/2020 10/11/2020 diazePAM 5 mg oral tablet (1 source) Benzodiazepine Start: End: Diazepam Discontinued 5 MG PO NEEDED November 03, 2015 12:00am July 26, 2017 11:46am ketorolac tromethamine 10 mg oral tablet (1 source) Nonsteroidal Anti-inflammatory Drug, Cyclooxygenase Inhibitor Start: End: take 10 mg by mouth every six hours Ketorolac Discontinued 10 MG PO EVERY 6 HOURS November 03, 2015 12:00am July 26, 2017 11:46am meloxicam 15 mg oral tablet (12 sources) Nonsteroidal Anti-inflammatory Drug Start: End: take 1 tablet by mouth once daily meloxicam (MOBIC) 15 mg tablet Take 1 tablet by mouth once daily. 30 tablet 0 11/02/2021 05/12/2022 Discontinued Start: 08-21-2021 End: 10-31-2021 take 1 tablet by mouth once daily meloxicam (MOBIC) 15 mg tablet Take 1 tablet by mouth once daily. 30 tablet 0 08/21/2021 10/31/2021 Discontinued Comment on above: Take 1 tablet by lorelei once daily. naproxen 500 mg oral tablet (7 sources) Nonsteroidal Anti-inflammatory Drug Start: 06-23-2022 End: 07-07-2022 take 1 tablet by mouth twice daily at mealtime naproxen (NAPROSYN) 500 mg tablet Indications: Right elbow pain Take 1 tablet by mouth twice daily with meals for 14 days. Take with food. 28 tablet 06/23/2022 07/07/2022 Start: 08-07-2021 End: 08-22-2021 take 1 tablet by mouth twice daily at mealtime as needed for pain naproxen (NAPROSYN) 500 mg tablet Indications: Acute pain of left knee , Effusion, left knee Take 1 tablet by mouth twice daily as needed (for pain/inflammation) for up to 15 days. Take with food. 30 tablet 0 08/07/2021 08/21/2021 Discontinued (Course of therapy completed) Comment on above: Take 1 tablet by lorelei twice daily as needed (for pain/inflammation) for up to 15 days. Take with food. Take 1 tablet by lorelei twice daily with meals for 14 days. Take with food. ondansetron 4 mg oral tablet (7 sources) Serotonin-3 Receptor Antagonist Start: End: take 1 tablet by mouth every eight hours as needed for nausea ondansetron (ZOFRAN) 4 mg tablet Indications: Nausea and vomiting, unspecified vomiting type Take 1 tablet by mouth every 8 hours as needed for nausea/vomiting. 4 tablet 07/09/2024 11/19/2024 Discontinued oxyCODONE hydrochloride 5 mg oral tablet (7 sources) Opioid Agonist Start: End: take 1-2 tablets by mouth every six hours as needed, then take 6 tablets by mouth every twenty-four hours as needed oxyCODONE IR (ROXICODONE) 5 mg immediate release tablet TAKE 1 TO 2 TABLETS BY MOUTH EVERY 6 HOURS NEEDED. DO NOT EXCEED 6 TABLETS IN 24 HOURS 02/24/2024 04/19/2024 Discontinued perflutren lipid microspheres 1.3 mL in NaCl (PF) 0.9% 10 mL injection (DEFINITY) (20 sources) Start: 023 End: 023 perflutren lipid microspheres 1.3 mL in NaCl (PF) 0.9% 10 mL injection (DEFINITY) Start: 06-23-2022 End: 09-22-2023 perflutren lipid microsphere s 1.3 mL in NaCl (PF) 0.9% 10 mL injection (DEFINITY) Start: 10-01-2020 End: 12-31-2021 perflutren lipid microsphere s 1.3 mL in NaCl (PF) 0.9% 10 mL injection (DEFINITY) predniSONE 10 mg oral tablet (4 sources) Start: 12-20-2022 End: 12-29-2022 predniSONE (DELTASONE) 10 mg tablet Indications: Acute cough Take 4 tabs daily for 3 days, then 2 tabs daily for 3 days, then 1 tab daily for 3 days with food. 21 tablet 12/20/2022 12/29/2022 Comment on above: Take 4 tabs daily fo r 3 days, then 2 tabs daily for 3 days, then 1 tab daily for 3 days with food. 125 ml sodium chloride 9 mg/ml prefilled syringe (20 sources) Start: 06-23-2022 End: 09-22-2023 sodium chloride 0.9 % (flush) 10 mL (BD POSIFLUSH) Start: 10-01-2020 End: 12-31-2021 sodium chloride 0.9 % (flush ) 10 mL (BD POSIFLUSH) Problems Active Problems Problem Classification Problem Date Documented Da te Episodic/Chronic Allergic reactions (20 sources) Contact dermatitis due to Genus Toxicodendron; Translations: [Unspecified contact dermatitis due to plants, except food] Onset: 8 11-01-2017 Episodic Anxiety disorders (20 sources) Anxiety; Translations: [Anxiety disorder, unspecified] Onset: 2 07-19-2011 Chronic Asthma (20 sources) Mild intermittent asthma; Translations: [Mild intermittent asthma, uncomplicated] Onset: 9 05-19-2018 Chronic Biliary tract disease (4 sources) Cholelithiasis without obstruction; Translations: [Calculus of gallbladder without cholecystitis without obstruction] Onset: 4 01-26-2023 Episodic Diseases of white blood cells (2 sources) Leukocytosis; Translations: [Elevated white blood cell count, unspecified] Onset: 5 07-20-2024 Chronic Disorders of lipid metabolism (20 sources) Mixed hyperlipidemia; Translations: [Mixed hyperlipidemia] Onset: 8 04-25-2017 Chronic Esophageal disorders (20 sources) Gastroesophageal reflux disease without esophagitis; Translations: [Gastro-esophageal reflux disease without esophagitis] Onset: 7 09-13-2016 Chronic Hepatitis (2 sources) Nonalcoholic steatohepatitis; Translations: [Nonalcoholic steatohepatitis (NAVA)] Onset: 4 05-25-2023 Chronic Joint disorders and dislocations; trauma-related (1 source) Chondromalacia of patella; Translations: [Chondromalacia patellae, unspecified knee] Chronic Miscellaneous mental health disorders (5 sources) Primary insomnia; Translations: [Primary insomnia] Chronic Mood disorders (20 sources) Severe recurrent major depression with psychotic features; Translations: [Major depressive disorder, recurrent, severe with psychotic symptoms] Onset: 1 10-30-2020 Chronic Nausea and vomiting (1 source) Nausea and vomiting; Translations: [Nausea with vomiting, unspecified] 07-09-2024 Episodic Nonspecific chest pain (2 sources) Chest discomfort; Translations: [Other chest pain] Episodic Nutritional deficiencies (20 sources) Vitamin D deficiency; Translations: [Vitamin D deficiency, unspecified] Onset: 8 11-01-2017 Chronic Open wounds of extremities (1 source) Laceration without foreign body of left middle finger without damage to nail, initial encounter; Translations: [Laceration without foreign body of left middle finger without damage to nail, initial encounter] Onset: 4 Episodic Other and unspecified benign neoplasm (1 source) Neuroma; Translations: [Benign neoplasm of peripheral nerves and autonomic nervous system, unspecified] 08-06-2024 Episodic Other circulatory disease (20 sources) Hypersensitivity angiitis; 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] Onset: 1 10-29-2020 Chronic Other connective tissue disease (6 sources) Swelling of lower limb; Translations: [Other specified soft tissue disorders] Episodic Other connective tissue disease (7 sources) Pain in both feet; Translations: [Pain in right foot] 12-15-2022 Episodic Other connective tissue disease (1 source) Cramp in foot; Translations: [Cramp and spasm] 12-15-2022 Episodic Other connective tissue disease (1 source) Panniculitis; Translations: [Panniculitis, unspecified] 03-09-2018 Episodic Other connective tissue disease (1 source) Cramp and spasm; Translations: [Nocturnal foot cramps] Onset: 5 Episodic Other ear and sense organ disorders (1 source) Bilateral hearing loss; Translations: [Unspecified hearing loss, bilateral] Chronic Other gastrointestinal disorders (2 sources) Acute constipation; Translations: [Constipation, unspecified] Episodic Other gastrointestinal disorders (1 source) Diarrhea; Translations: [Diarrhea, unspecified] 07-09-2024 Episodic Other inflammatory condition of skin (1 source) Intertrigo; Translations: [Erythema intertrigo] 03-09-2018 Episodic Other inflammatory condition of skin (1 source) Itching of ear; Translations: [Pruritus, unspecified] 04-19-2024 Episodic Other liver diseases (20 sources) Steatosis of liver; Translations: [Fatty (change of) liver, not elsewhere classified] Onset: 0 12-31-2019 Chronic Other liver diseases (3 sources) Hepatic fibrosis; Translations: [Advanced hepatic fibrosis] 01-26-2023 Chronic Other liver diseases (2 sources) Fatty (change of) liver, not elsewhere classified; Translations: [Hepatic steatosis] Onset: 0 Chronic Other lower respiratory disease (2 sources) Shortness of breath; Translations: [Dyspnea] Onset: 7 Episodic Other lower respiratory disease (5 sources) Dyspnea on exertion; Translations: [Shortness of breath] Episodic Other lower respiratory disease (2 sources) Wheezing; Translations: [Wheezing] Episodic Other lower respiratory disease (2 sources) Decreased breath sounds; Translations: [Other abnormalities of breathing] Episodic Other lower respiratory disease (1 source) Shortness of breath; Translations: [SOB (shortness of breath) on exertion] Onset: 3 Episodic Other lower respiratory disease (2 sources) Cough; Translations: [Acute cough] 12-20-2022 Episodic Other lower respiratory disease (1 source) Dyspnea; Translations: [Shortness of breath] 10-01-2020 Episodic Other lower respiratory disease (2 sources) Cough; Translations: [Acute cough] 03-01-2024 Episodic Other nervous system disorders (20 sources) Bilateral carpal tunnel syndrome; Translations: [Carpal tunnel syndrome, bilateral upper limbs] Onset: 7 09-13-2016 Chronic Other nervous system disorders (1 source) Carpal tunnel syndrome of left wrist; Translations: [Carpal tunnel syndrome, left upper limb] 03-09-2018 Chronic Other nervous system disorders (2 sources) Cold feet; Translations: [Unspecified disturbances of skin sensation] 12-15-2022 Episodic Other non-traumatic joint disorders (3 sources) Pain in left knee; Translations: [Pain in joint, lower leg] Episodic Other non-traumatic joint disorders (2 sources) Effusion of joint of left knee; Translations: [Effusion, left knee] Episodic Other non-traumatic joint disorders (1 source) Pain in elbow; Translations: [Pain in right elbow] Episodic Other nutritional; endocrine; and metabolic disorders (20 sources) Body mass index 40+ - severely obese; Translations: [Morbid (severe) obesity due to excess calories] Onset: 1 10-01-2020 Chronic Other nutritional; endocrine; and metabolic disorders (20 sources) Severe obesity; Translations: [Morbid (severe) obesity due to excess calories] Onset: 1 05-25-2023 Chronic Other nutritional; endocrine; and metabolic disorders (2 sources) Morbid (severe) obesity due to excess calories; Translations: [Class 3 severe obesity with serious comorbidity and body mass index (BMI) of 40.0 to 44.9 in adult, unspecified obesity type (HCC)] Onset: 4 Chronic Other nutritional; endocrine; and metabolic disorders (2 sources) Body mass index (BMI) 40.0-44.9, adult; Translations: [Class 3 severe obesity with serious comorbidity and body mass index (BMI) of 40.0 to 44.9 in adult, unspecified obesity type (HCC)] Onset: 4 Chronic Other nutritional; endocrine; and metabolic disorders (1 source) Excess panniculus of abdomen; Translations: [Localized adiposity] 03-09-2018 Chronic Other nutritional; endocrine; and metabolic disorders (2 sources) Hypercalcemia; Translations: [Hypercalcemia] 01-11-2024 Chronic Other nutritional; endocrine; and metabolic disorders (1 source) Hypercalcemia; Translations: [Serum calcium elevated] Onset: 5 Chronic Other screening for suspected conditions (not mental disorders or infectious disease) (20 sources) Patient encounter status; Translations: [Encounter for screening mammogram for malignant neoplasm of breast] Onset: 7 Resolved: 8 Episodic Other skin disorders (1 source) Skin finding; Translations: [Cutis laxa senilis] 03-09-2018 Episodic Other upper respiratory infections (4 sources) Sore throat symptom; Translations: [Acute pharyngitis, unspecified] Episodic Residual codes; unclassified (20 sources) Obstructive sleep apnea syndrome; Translations: [Obstructive sleep apnea (adult) (pediatric)] Onset: 8 04-13-2017 Chronic Residual codes; unclassified (2 sources) Obstructive sleep apnea (adult) (pediatric); Translations: [SHAINA (obstructive sleep apnea)] Onset: 8 Chronic Residual codes; unclassified (1 source) Acquired absence of other specified parts of digestive tract; Translations: [Status post laparoscopic cholecystectomy] Onset: 4 Episodic Spondylosis; intervertebral disc disorders; other back problems (1 source) Low back pain; Translations: [Low back pain] 03-09-2018 Episodic Sprains and strains (1 source) Strain of muscle of lower limb; Translations: [Strain of unspecified muscle(s) and tendon(s) at lower leg level, left leg, initial encounter] 07-29-2023 Episodic Thyroid disorders (20 sources) Non-toxic nodular goiter; Translations: [Nontoxic goiter, unspecified] Onset: 8 08-29-2017 Chronic Unclassified (1 source) Unknown / UNK(Unknown) Onset: 7 Unclassified (1 source) Class 3 severe obesity with body mass index (BMI) of 40.0 to 44.9 in adult, unspecified obesity type, unspecified whether serious comorbidity present (HCC); Translations: [Class 3 severe obesity with body mass index (BMI) of 40.0 to 44.9 in adult, unspecified obesity type, unspecified whether serious comorbidity present (HCC)] Onset: 4 Unclassified (1 source) Acute cough; Translations: [Acute cough] Onset: 4 Viral infection (20 sources) Anogenital herpesviral infection; Translations: [Anogenital herpesviral infection, unspecified] Onset: 1 Resolved: 7 06-19-2020 Chronic Past or Other Problems Problem Classification Problem Date Documented Da te Episodic/Chronic Abdominal pain (20 sources) Right upper quadrant pain; Translations: [Right upper quadrant pain] Onset: 09-04-2009 Resolved: 07-14-2011 01-26-2023 Episodic Diabetes mellitus without complication (20 sources) Hyperglycemia; Translations: [Impaired fasting glucose] Onset: 11-01-2017 11-01-2017 Episodic Fluid and electrolyte disorders (15 sources) Hypokalemia; Translations: [Hypokalemia] Onset: 03-01-2024 Episodic Immunizations and screening for infectious disease (20 sources) Anti-nuclear factor positive; Translations: [Other specified abnormal immunological findings in serum] Onset: 10-30-2020 10-30-2020 Episodic Malaise and fatigue (20 sources) Malaise and fatigue; Translations: [Other malaise] Onset: 10-30-2020 10-30-2020 Episodic Menstrual disorders (20 sources) Menorrhagia; Translations: [Excessive and frequent menstruation with regular cycle] Onset: 09-04-2009 Resolved: 07-14-2011 07-14-2011 Chronic Other and unspecified benign neoplasm (1 source) Benign neoplasm of peripheral nerves and autonomic nervous system, unspecified; Translations: [Neuroma] Onset: 08-06-2024 Episodic Other complications of (20 sources) Multigravida of advanced maternal age; Translations: [Supervision of elderly multigravida, unspecified trimester] Onset: 09-16-2006 Resolved: 03-14-2007 03-14-2007 Episodic Other connective tissue disease (20 sources) Diastasis recti; Translations: [Separation of muscle (nontraumatic), other site] Onset: 12-11-2015 Resolved: 04-13-2017 11-01-2017 Episodic Other connective tissue disease (20 sources) Plantar fasciitis; Translations: [Plantar fascial fibromatosis] Onset: 11-01-2017 11-01-2017 Episodic Other connective tissue disease (20 sources) Muscle pain; Translations: [Myalgia, unspecified site] Onset: 10-30-2020 10-30-2020 Episodic Other connective tissue disease (20 sources) Swelling of hand; Translations: [Other specified soft tissue disorders] Onset: 08-18-2023 Episodic Other connective tissue disease (1 source) Plantar fascial fibromatosis; Translations: [Plantar fasciitis] Onset: 11-01-2017 Episodic Other connective tissue disease (1 source) Pain in right foot; Translations: [Foot pain, bilateral] Onset: 07-18-2024 Episodic Other connective tissue disease (1 source) Pain in left foot; Translations: [Foot pain, bilateral] Onset: 07-18-2024 Episodic Other female genital disorders (20 sources) Enlarged uterus; Translations: [Hypertrophy of uterus] Onset: 10-22-2009 Resolved: 07-14-2011 07-14-2011 Episodic Other gastrointestinal disorders (20 sources) Burping; Translations: [Eructation] Onset: 11-01-2017 11-01-2017 Episodic Other inflammatory condition of skin (1 source) Pruritus, unspecified; Translations: [Ear itching] Onset: 04-19-2024 Episodic Other non-traumatic joint disorders (20 sources) Pain in right knee; Translations: [Pain in joint, lower leg] Onset: 10-30-2020 10-30-2020 Episodic Other nutritional; endocrine; and metabolic disorders (20 sources) Obese class II; Translations: [Obesity, unspecified] Onset: 04-25-2017 Resolved: 10-30-2020 10-30-2020 Chronic Other and delivery including normal (20 sources) Normal ; Translations: [Encounter for supervision of other normal , unspecified trimester] Onset: 08-04-2006 Resolved: 03-14-2007 03-14-2007 Episodic Results Test Name Value Interpretation Reference Range Facility CBC panel Auto (Bld)on 02-19 Erythrocyte distribution width (RBC) [Ratio] 13.1 % Normal 11.5-15.0 [facility] Comment on above: Order Comment: Speci men Type: BLOOD SPECIMEN Ordering Facility: [facility] Address: [address] [place] [address] Performed By: #### 2 3843-8, 25817-1, 3024-7, 3016-3 #### [facility] CLIA [id number] [address] [place] [address] [place] Hematocrit (Bld) [Volume fraction] 42.0 % Normal 36.0-46.0 [facility] Comment on above: Order Comment: Speci men Type: BLOOD SPECIMEN Ordering Facility: [facility] Address: [address] [place] [address] Performed By: #### 2 4323-8, 87745-4, 3024-7, 3016-3 #### [facility] CLIA [id number] [address] [place] [address] [place] Hemoglobin (Bld) [Mass/Vol] 13.9 g/dL Normal 11.5-15.5 [facility] Comment on above: Order Comment: Speci men Type: BLOOD SPECIMEN Ordering Facility: [facility] Address: [address] [place] [address] Performed By: #### 2 4323-8, 15581-2, 3024-7, 3016-3 #### [facility] CLIA [id number] [address] [place] [address] [place] MCH (RBC) [Entitic mass] 29.3 pg Normal 26.0-34.0 [facility] Comment on above: Order Comment: Speci men Type: BLOOD SPECIMEN Ordering Facility: [facility] Address: [address] [place] [address] Performed By: #### 2 4323-8, 79640-6, 3024-7, 3016-3 #### [facility] CLIA [id number] [address] [place] [address] [place] MCHC (RBC) [Mass/Vol] 33.1 g/dL Normal 30.5-36.0 [facility] Comment on above: Order Comment: Speci men Type: BLOOD SPECIMEN Ordering Facility: [facility] Address: [address] [place] [address] Performed By: #### 2 4323-8, 85320-8, 3024-7, 3016-3 #### [facility] CLIA [id number] [address] [place] [address] [place] MCV (RBC) [Entitic vol] 88.4 fL Normal 80.0-100.0 [facility] Comment on above: Order Comment: Speci men Type: BLOOD SPECIMEN Ordering Facility: [facility] Address: [address] [place] [address] Performed By: #### 2 4323-8, 49553-6, 3024-7, 3016-3 #### [facility] CLIA [id number] [address] [place] [address] [place] Nucleated RBC (Bld) [#/Vol] 10*3/uL Normal <0.01 [facility] Comment on above: Order Comment: Speci men Type: BLOOD SPECIMEN Ordering Facility: [facility] Address: [address] [place] [address] Performed By: #### 2 4323-8, 68565-1, 3024-7, 3016-3 #### [facility] CLIA [id number] [address] [place] [address] [place] Platelet mean volume (Bld) [Entitic vol] 8.5 fL Low 9.0-12.7 [facility] Comment on above: Order Comment: Speci men Type: BLOOD SPECIMEN Ordering Facility: [facility] Address: [address] [place] [address] Performed By: #### 2 4323-8, 33834-3, 302-7, 3016-3 #### [facility] CLIA [id number] [address] [place] [address] [place] Platelets (Bld) [#/Vol] 296 10*3/uL Normal 150-400 [facility] Comment on above: Order Comment: Speci men Type: BLOOD SPECIMEN Ordering Facility: [facility] Address: [address] [place] [address] Performed By: #### 2 4323-8, 05196-3, 3024-7, 3016-3 #### [facility] CLIA [id number] [address] [place] [address] [place] RBC (Bld) [#/Vol] 4.75 10*6/uL Normal 3.90-5.20 [facility] Comment on above: Order Comment: Speci men Type: BLOOD SPECIMEN Ordering Facility: [facility] Address: [address] [place] [address] Performed By: #### 2 4323-8, 38896-0, 3024-7, 3016-3 #### [facility] CLIA [id number] [address] [place] [address] [place] WBC (Bld) [#/Vol] 7.60 10*3/uL Normal 3.70-11.00 [facility] Comment on above: Order Comment: Speci men Type: BLOOD SPECIMEN Ordering Facility: [facility] Address: [address] [place] [address] Performed By: #### 2 4323-8, 86118-5, 3024-7, 3016-3 #### [facility] CLIA [id number] [address] [place] [address] [place] CNOVon 02-19-2025 CNOV Office Visit (DEYSIPWS ) RONNIE KATZ ([id number]) 1970 F Date Time Provider Department 02/19/25 2:40 PM [facility] During your visit today, we recorded the following information about you: Pulse Blood pressure Weight 87/minute 110/72 110.3 kg TravisAdia APRN.CNP 02/19/2025 4:58 PM Signed 02/19/2025 Recording using [employer] - ASO software for draft documentation of the visit was discussed with the patient/authorized arborist representative; all questions welcomed and answered. Patient/authorized arborist representative agreed to proceed HPI: The patient is a 54-year-old female with T2DM, hypothyroidism, asthma, MDD, and PAOLA, presenting for evaluation of worsening anxiety, irritability, and vasomotor symptoms. Ronnie Katz is a 54-year-old female with a history of major depressive disorder, presenting for increased anxiety and irritability. Anxiety and Irritability: - Increased anxiety and irritability, described as feeling overstimulated and imbalanced. - Symptoms are constant and occur at home and work. - Experiences snappy behavior and a desire to be left alone. - No recent panic attacks; denies suicidal ideation. - No recent changes in stress levels; recent positive life events include purchasing a new house, 's cancer-free diagnosis, and financial stability. - Suspects symptoms may be related to menopause; reports hot flashes and sweating. - Taking Effexor 150 mg and 75 mg daily for total 225mg daily; previously attempted to wean off but experienced severe depressive symptoms. 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 - Reports brain fog and fear of losing control; family history of dementia and Alzheimer's in grandmother and has this fear at times. Weight Management: - Taking Adipex (phentermine) and metformin. - Previously lost weight while taking probiotics; reports weight gain after stopping probiotics. - Takes phentermine around dinner time; reports feeling tired and falling asleep while watching TV. PAST MEDICAL HISTORY Diagnosis Date Diastasis of rectus abdominis 12/11/2015 Dysthymic disorder Depression (non-psychotic) Environmental allergies spring. Gallstones Genital herpes, unspecified 01/09/2007 HSV (herpes simplex virus) anogenital infection 1990 Hypercholesteremia 05/2015 Leukocytoclastic vasculitis (HCC) 2012 dx by Aliyah Wallace Onychomycosis SHAINA (obstructive sleep apnea) 04/13/2017 Persistent asthma without complication (HCC) 06/12/2018 + JADA 06/2018, chronic cough, abnormal RAST. Current Outpatient Medications on File Prior to Visit Medication Sig levothyroxine (SYNTHROID) 88 mcg tablet Take 1 tablet by mouth once daily potassium chloride (K-TAB) 10 mEq tablet Take 1 tablet by mouth daily with breakfast. metFORMIN ER (GLUCOPHAGE XR) 500 mg 24 hr tablet Take 2 tablets by mouth once daily. With dinner. pantoprazole DR (PROTONIX) 40 mg tablet Take 1 tablet by mouth once daily. loratadine (CLARITIN) 10 mg tablet Take 1 tablet by mouth once daily. Calcium-Cholecalcifer ol, D3, 600 mg-10 mcg (400 unit) cap Take 1 capsule by mouth once daily. budesonide-formoterol (SYMBICORT) 80-4.5 mcg/actuation inhaler Inhale 2 Puffs as instructed twice daily. albuterol HFA (PROVENTIL HFA, VENTOLIN HFA) 90 mcg/actuation inhaler Inhale 2 Puffs as instructed every 4 hours as needed. cholecalciferol (VITAMIN D3) 50 mcg (2,000 unit) tablet Take 1 tablet by mouth once daily. CPAP Initiate CPAP @ 10 cm of water with humidification. Mask (per patient preference) optional chin strap (if indicated) , filters, tubing, humidifier and lifetime supplies. COMPOUNDED PRESCRIPTION CPAP Supplies; hose; mask DX: SHAINA multivitamins(DAILY VITAMIN TAB) Take one(1) tablet daily. No current facility-administered medications on file prior to visit. Review of Systems: Constitutional: (+) fatigue, (+) diaphoresis Musculoskeletal: (+) nocturnal foot cramps Neurological: (+) cognitive fog, (+) memory lapses Psychiatric: (+) anxiety, (+) irritability, (+) angry mood, (+) insomnia with frequent awakenings, (-) suicidal ideation Endocrine: (+) hot flashes Physical Exam: BP 110/72 Pulse 87 Wt 110.3 kg (243 lb 3.2 oz) LMP 11/16/2009 SpO2 96% BMI 41.78 kg/m? GENERAL: NAD, alert and oriented, well groomed. SKIN: Unremarkable, no rash or skin lesions. HEAD: Normocephalic. LUNGS: Clear to auscultation bilaterally, no wheezes/rhonchi/rales . HEART: Regular rate and rhythm, no murmurs. No ectopy. EXTREMITIES: Normal, no deformities, no skin discoloration, no edema. PSYCHIATRIC: pleasant, cooperative, anxious, tearful Diagnostics Reviewed: Labs: - Potassium: borderline low in November 2024 Assessment/Plan: 1. Irritability (R45.4) 2. Anxiety disorder with panic attacks (F41.9) 3. (more content not included)... Normal [facility] Calcium.ionized [Moles/Vol]o n 02-19-2025 Calcium.ionized (Bld) [Mass/Vol] 1.23 mmol/L Normal 1.08-1.30 [facility] Comment on above: Order Comment: Speci men Type: BLOOD SPECIMEN Ordering Facility: [facility] Address: [address] [place] [address] Performed By: #### 2 4323-8, 24233-2, 3024-7, 3016-3 #### [facility] CLIA [id number] [address] [place] [address] [place] [address] [facility] Calcium.ionized adjusted to pH 7.4 (Bld) [Moles/Vol] 1.21 mmol/L Normal 1.08-1.30 [facility] Comment on above: Order Comment: Speci faheem Type: BLOOD SPECIMEN Ordering Facility: [facility] Address: [address] [place] [address] Performed By: #### 2 4323-8, 39770-3, 3024-7, 3016-3 #### [facility] CLIA [id number] [address] [place] [address] [place] Comprehensive metabolic 2000 panelon 02-19-2025 Albumin [Mass/Vol] 4.4 g/dL Normal 3.9-4.9 [facility] Comment on above: Order Comment: Valeria mayen Type: BLOOD SPECIMEN Ordering Facility: [facility] Address: [address] [place] [address] Performed By: #### 2 4323-8, 04307-4, 3024-7, 3016-3 #### [facility] CLIA [id number] [address] [place] [address] [place] ALP [Catalytic activity/Vol] 80 U/L Normal 34-123 [facility] Comment on above: Order Comment: Speci men Type: BLOOD SPECIMEN Ordering Facility: [facility] Address: [address] [place] [address] Performed By: #### 2 4323-8, 29842-3, 3024-7, 3016-3 #### [facility] CLIA [id number] [address] [place] [address] [place] ALT [Catalytic activity/Vol] 29 U/L Normal 7-38 [facility] Comment on above: Order Comment: Speci men Type: BLOOD SPECIMEN Ordering Facility: [facility] Address: [address] [place] [address] Performed By: #### 2 4323-8, 76777-2, 4-7, 3016-3 #### [facility] CLIA [id number] [address] [place] [address] [place] Anion gap [Moles/Vol] 12 mmol/L Normal 8-15 [facility] Comment on above: Order Comment: Speci men Type: BLOOD SPECIMEN Ordering Facility: [facility] Address: [address] [place] [address] Performed By: #### 2 4323-8, 24594-5, 302-7, 3016-3 #### [facility] CLIA [id number] [address] [place] [address] [place] AST [Catalytic activity/Vol] 26 U/L Normal 13-35 [facility] Comment on above: Order Comment: Speci men Type: BLOOD SPECIMEN Ordering Facility: [facility] Address: [address] [place] [address] Performed By: #### 2 4323-8, 55781-5, 3024-7, 3016-3 #### [facility] CLIA [id number] [address] [place] [address] [place] Bilirubin [Mass/Vol] 0.2 mg/dL Normal 0.2-1.3 [facility] Comment on above: Order Comment: Speci men Type: BLOOD SPECIMEN Ordering Facility: [facility] Address: [address] [place] [address] Performed By: #### 2 4323-8, 53927-4, 3024-7, 3016-3 #### [facility] CLIA [id number] [address] [place] [address] [place] Calcium [Mass/Vol] 9.5 mg/dL Normal 8.5-10.2 [facility] Comment on above: Order Comment: Speci men Type: BLOOD SPECIMEN Ordering Facility: [facility] Address: [address] [place] [address] Performed By: #### 2 4323-8, 19970-4, 3024-7, 3016-3 #### [facility] CLIA [id number] [address] [place] [address] [place] Chloride [Moles/Vol] 102 mmol/L Normal 98-107 [facility] Comment on above: Order Comment: Speci men Type: BLOOD SPECIMEN Ordering Facility: [facility] Address: [address] [place] [address] Performed By: #### 2 4323-8, 60923-9, 3024-7, 3016-3 #### [facility] CLIA [id number] [address] [place] [address] [place] CO2 [Moles/Vol] 28 mmol/L Normal 22-30 [facility] Comment on above: Order Comment: Speci men Type: BLOOD SPECIMEN Ordering Facility: [facility] Address: [address] [place] [address] Performed By: #### 2 4323-8, 97922-1, 3024-7, 3016-3 #### [facility] CLIA [id number] [address] [place] [address] [place] Creatinine [Mass/Vol] 0.77 mg/dL Normal 0.58-0.96 [facility] Comment on above: Order Comment: Valeria mayen Type: BLOOD SPECIMEN Ordering Facility: [facility] Address: [address] [place] [address] Performed By: #### 2 4323-8, 56016-9, 3024-7, 3016-3 #### [facility] CLIA [id number] [address] [place] [address] [place] eGFRcr SerPlBld CKD-EPI 2020 92 mL/min/1.73m??? Normal >=60 [facility] Comment on above: Order Comment: Valeria mayen Type: BLOOD SPECIMEN Ordering Facility: [facility] Address: [address] [place] [address] Result Comment: Yanelis mated Glomerular Filtration Rate (eGFR) is calculated using the 2020 CKD-EPI creatinine equation. This equation utilizes serum creatinine, sex, and age as parameters. The creatinine assay has traceable calibration to isotope dilution-mass spectrometry. Refer to KDIGO guidelines for clinical interpretation. In patients with unstable renal function, e.g. those with acute kidney injury, the eGFR may not accurately reflect actual GFR. Performed By: #### 2 4323-8, 44353-4, 3024-7, 3016-3 #### [facility] CLIA [id number] [address] [place] [address] [place] Glucose [Mass/Vol] 102 mg/dL High 74-99 [facility] Comment on above: Order Comment: Valeria mayen Type: BLOOD SPECIMEN Ordering Facility: [facility] Address: [address] [place] [address] Result Comment: The [place] Diabetes Association (ADA) provides guidance for cutoff values for fasting glucose and random glucose. The ADA defines fasting as no caloric intake for at least 8 hours. Fasting plasma glucose results between 100 to 125 [...] Standards of Medical Care in Diabetes 2016, [place] Diabetes Association. Diabetes Care. 2016.39(Suppl 1). Performed By: #### 2 4323-8, 39640-4, 3024-7, 3016-3 #### [facility] CLIA [id number] [address] [place] [address] [place] Potassium [Moles/Vol] 3.8 mmol/L Normal 3.7-5.1 [facility] Comment on above: Order Comment: Valeria mayen Type: BLOOD SPECIMEN Ordering Facility: [facility] Address: [address] [place] [address] Performed By: #### 2 4323-8, 59681-5, 3023-7, 6-3 #### [facility] CLIA [id number] [address] [place] [address] [place] Protein [Mass/Vol] 7.2 g/dL Normal 6.3-8.0 [facility] Comment on above: Order Comment: Valeria mayen Type: BLOOD SPECIMEN Ordering Facility: [facility] Address: [address] [place] [address] Performed By: #### 2 4323-8, 99866-0, 7, 6-3 #### [facility] CLIA [id number] [address] [place], [place] [id number] [place] Sodium [Moles/Vol] 142 mmol/L Normal 136-144 [facility] Comment on above: Order Comment: Valeria mayen Type: BLOOD SPECIMEN Ordering Facility: [facility] Address: [address] [place] [address] Performed By: #### 2 4323-8, 42218-2, 3024-7, 3016-3 #### [facility] CLIA [id number] [address] [place], [place] [id number] [place] Urea nitrogen [Mass/Vol] 12 mg/dL Normal 7-21 [facility] Comment on above: Order Comment: Speci men Type: BLOOD SPECIMEN Ordering Facility: [facility] Address: [address] [place] [address] Performed By: #### 2 4323-8, 51666-1, 3024-7, 6-3 #### [facility] CLIA [id number] [address] [place] [address] [place] Ferritin SerPl-mCncon 2024 Ferritin [Mass/Vol] 143.0 ng/mL Normal 14.7-205.1 [facility] Comment on above: Order Comment: Speci men Type: BLOOD SPECIMEN Ordering Facility: [facility] Address: [address] [place] [address] Performed By: #### 2 4323-8, 00928-7, 3023-7, 3015-3 #### [facility] CLIA [id number] [address] [place] [address] [place] Iron and Iron binding capaci ty panelon 02-19-2025 Iron [Mass/Vol] 57 ug/dL Normal 41-186 [facility] Comment on above: Order Comment: Speci men Type: BLOOD SPECIMEN Ordering Facility: [facility] Address: [address] [place] [address] Performed By: #### 2 4323-8, 77804-2, 3023-7, 3015-3 #### [facility] CLIA [id number] [address] [place] [address] [place] Iron binding capacity [Mass/Vol] 391 ug/dL High 232-386 [facility] Comment on above: Order Comment: Speci men Type: BLOOD SPECIMEN Ordering Facility: [facility] Address: [address] [place] [address] Performed By: #### 2 4323-8, 45332-8, 3023-7, 6-3 #### [facility] CLIA [id number] [address] [place] [address] [place] Iron/TIBC [Molar ratio] 14.6 % Low 15.0-57.0 [facility] Comment on above: Order Comment: Speci men Type: BLOOD SPECIMEN Ordering Facility: [facility] Address: [address] [place] [address] Performed By: #### 2 4323-8, 83524-5, 3024-7, 3016-3 #### [facility] CLIA [id number] [address] [place] [address] [place] Magnesium SerPl-mCncon 02-19 Magnesium [Mass/Vol] 1.9 mg/dL Normal 1.7-2.3 [facility] Comment on above: Order Comment: Speci men Type: BLOOD SPECIMEN Ordering Facility: [facility] Address: [address] [place] [address] Performed By: #### 2 4323-8, 36829-7, 3024-7, 3016-3 #### [facility] CLIA [id number] [address] [place] [address] [place] PTH-Intact SerPl-mCncon 02-09 Parathyrin.intact [Mass/Vol] 44 pg/mL Normal 15-65 [facility] Comment on above: Order Comment: Speci men Type: BLOOD SPECIMEN Ordering Facility: [facility] Address: [address] [place] [address] Performed By: #### 2 4323-8, 84674-7, 3024-7, 3016-3 #### [facility] CLIA [id number] [address] [place] [address] [place] TSH SerPl-aCncon 02-19-2025 TSH Qn 1.590 m[IU]/L Normal 0.270-4.200 [facility] Comment on above: Order Comment: Speci men Type: BLOOD SPECIMEN Ordering Facility: [facility] Address: [address] [place], [place] [address] Performed By: #### 2 4323-8, 81213-6, 3024-7, 3016-3 #### [facility] CLIA [id number] [address] [address] [place] Aimee 12-27-2024 CNPN Telephone (FAMPWS) RONNIE KATZ ([id number]) 1970 [facility] Date Time Provider Department 12/27/24 STANLEY SWEENEY FAMPWS During your visit today, we recorded the following information about you: Stanley Sweeney DO 12/27/2024 8:18 AM Signed Please inform patient that her mammogram is normal/negative. She will need routine screening mammogram in 1 year. Thanks LATOSHA Marks [place], [place] 12/27/2024 10:35 AM Signed Left detailed message on Dine [employer]. Sandra Aguiar MA Allergies As of Date: 12/27/2024 Noted Allergy Reaction PROZAC (FLUOXETINE HCL) 07/14/2011 1 - Mental Status Change Comments: Aggressive behavior, emotional Date Reviewed: 11/21/2024 Reviewed by: Jenifer Villa APRN.FLANGING ROLL OPERATOR - Fully Assessed Prescriptions as of 12/27/2024 - venlafaxine ER (EFFEXOR XR) 150 mg 24 hr capsule Take 1 capsule by mouth once daily - venlafaxine ER (EFFEXOR XR) 75 mg 24 hr capsule Take 1 capsule by mouth once daily - venlafaxine ER (EFFEXOR XR) 75 mg 24 hr capsule Take 1 capsule by mouth once daily. - Phentermine HCl 37.5 mg tablet Take 1 tablet by mouth once daily for 90 days. BMI 40.33 - potassium chloride (K-TAB) 10 mEq tablet Take 1 tablet by mouth daily with breakfast. - metFORMIN ER (GLUCOPHAGE XR) 500 mg 24 hr tablet Take 2 tablets by mouth once daily. With dinner. - levothyroxine (SYNTHROID) 88 mcg tablet Take 1 tablet by mouth once daily. - pantoprazole DR (PROTONIX) 40 mg tablet Take 1 tablet by mouth once daily. - loratadine (CLARITIN) 10 mg tablet Take 1 tablet by mouth once daily. - Calcium-Cholecalcifer ol, D3, 600 mg-10 mcg (400 unit) cap Take 1 capsule by mouth once daily. - dexAMETHasone 0.1 % ophthalmic solution Instill 1 drop into affected ear canal once daily as needed - traZODone (DESYREL) 50 mg tablet Take 1 tablet by mouth daily at bedtime. - furosemide (LASIX) 40 mg tablet Take 1 tablet by mouth two times a day. - budesonide-formoterol (SYMBICORT) 80-4.5 mcg/actuation inhaler Inhale 2 Puffs as instructed twice daily. - albuterol HFA (PROVENTIL HFA, VENTOLIN HFA) 90 mcg/actuation inhaler Inhale 2 Puffs as instructed every 4 hours as needed. - cholecalciferol (VITAMIN D3) 50 mcg (2,000 unit) tablet Take 1 tablet by mouth once daily. - CPAP Initiate CPAP @ 10 cm of water with humidification. Mask (per patient preference) optional chin strap (if indicated) , filters, tubing, humidifier and lifetime supplies. - COMPOUNDED PRESCRIPTION CPAP Supplies; hose; mask DX: SHAINA - multivitamins(DAILY VITAMIN TAB) Take one(1) tablet daily. 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 Abdominal pain, lower [R10.30] 09/04/2009 07/14/2011 Menorrhagia [N92.0] 09/04/2009 07/14/2011 Enlarged uterus [N85.2] 10/22/2009 07/14/2011 Pelvic pain 10/22/2009 07/14/2011 Anxiety [F41.9] 07/19/2011 Panic attack [F41.0] 07/19/2011 Diastasis of rectus abdominis [M62.08] 12/11/2015 04/13/2017 Carpal tunnel syndrome, bilateral [G56.03] 07/23/2016 Gastroesophageal reflux disease without esophag*09/10/2016 Medication monitoring encounter [Z51.81] 09/13/2016 04/13/2017 SHAINA (obstructive sleep apnea) [G47.33] 04/13/2017 Mixed hyperlipidemia [E78.2] 04/25/2017 Obesity, Class II, BMI 35-39.9 [E66.812] 04/25/2017 10/30/2020 Diastasis of rectus abdominis [M62.08] 11/01/2017 Vitamin D deficiency [E55.9] 11/01/2017 Elevated fasting glucose [R73.01] 11/01/2017 Plantar fasciitis [M72.2] 11/01/2017 Belching [R14.2] 11/01/2017 Rhus dermatitis [L25.5] 11/01/2017 Mild intermittent asthma, uncomplicated [J45.20]05/19/2018 Environmental allergies [Z91.09] Persistent asthma without complication [J45.909]06/12/2018 Fatty liver [K76.0] 12/31/2019 HSV (herpes simplex virus) anogenital infection*1991 Class 3 severe obesity with body mass index (BM*10/01/2020 Leukocytoclastic vasculitis (HCC) [M31.0] 10/29/2020 Malaise and fatigue [R53.81, R53.83] 10/30/2020 Positive KRISTINE (antinuclear antibody) [R76.8] 10/30/2020 Acute pain of right knee [M25.561] 10/30/2020 Myalgia [M79.10] 10/30/2020 Severe episode of recurrent major depressive di*10/30/2020 Anxiety with depression [F41.8] 10/31/2020 Swelling of both hands [M79.89] 08/18/2023 Encounter Status:Closed by HOLIDAY, SANDRA on 12/27/24 Normal [facility] JARETH SCREENING W TOMOon 12-25 JARETH SCREENING W JEFE * * *Final Report* * * DATE OF EXAM: Dec 25 2024 1:31PM [id number] - JARETH SCREENING W JEFE / PROCEDURE REASON: Encounter for screening mammogram for breast cancer * * * * Physician Interpretation * * * * RESULT: [place] [address] [address] [place] [address] #[id number] - JARETH SCREENING W JEFE HISTORY: 54 year-old patient presents for screening. Patient is asymptomatic in both breasts. Patient states no personal history of breast cancer. The patient has a family history of breast cancer. COMPARISON STUDIES: The present examination has been compared to prior imaging studies dated 07/03/2018 (mammogram), 08/01/2018 (mammogram), 12/06/2019 (mammogram), 02/03/2021 (mammogram), 05/17/2022 (mammogram) and 06/22/2023 (mammogram). MAMMOGRAM TECHNIQUE: The study was acquired using full field digital technology and interpreted from soft copy. Digital Breast Tomosynthesis (DBT) images were obtained and used to assist in the interpretation of this examination. MAMMOGRAM FINDINGS: There are scattered areas of fibroglandular density. No suspicious masses, calcifications or other abnormalities are seen in either breast. There are no significant interval changes. IMPRESSION: There is no mammographic evidence of malignancy in either breast. Routine screening mammogram is recommended. Annual mammogram will be due in 1 year. BI-RADS Category 1: Negative RISK: Based on the Tyrer-Cuzick (TC) risk assessment model, this patient has a 12.8% lifetime risk of developing breast cancer, meaning they are at average risk for developing breast cancer. However, this is only an estimate based on available history provided on the patient's questionnaire. We encourage all patients to talk with their providers about these results, further recommendations for managing breast health, and appropriate supplemental screening options if the patient has dense breast tissue. Interpreting Radiologist: Grace Peralta M.D. Electronically signed on: 12/26/2024 In House Counsel: ANTHONY Transcribe Date/Time: Dec 25 2024 1:22P Dictated by: GRACE PERALTA MD This examination was interpreted and the report reviewed and electronically signed by: GRACE PERALTA MD on Dec 26 2024 3:57PM EST [id number] N Normal [facility] metabolic 2000 panelon 11-20-2024 Albumin [Mass/Vol] 4.8 g/dL 3.9 - 4.9 g/dL [facility] ALP [Catalytic activity/Vol] 79 U/L 34 - 123 U/L [facility] ALT [Catalytic activity/Vol] 47 U/L High 7 - 38 U/L [facility] Anion gap [Moles/Vol] 15 mmol/L 8 - 15 mmol/L [facility] AST [Catalytic activity/Vol] 41 U/L High 13 - 35 U/L [facility] Bilirubin [Mass/Vol] 0.4 mg/dL 0.2 - 1 .3 mg/dL [facility] Calcium [Mass/Vol] 10.1 mg/dL 8.5 - 10. 2 mg/dL [facility] Chloride [Moles/Vol] 98 mmol/L 98 - 10 7 mmol/L [facility] CO2 [Moles/Vol] 28 mmol/L 22 - 30 mmol/L [facility] Creatinine [Mass/Vol] 0.81 mg/dL 0.58 - 0.96 mg/dL [facility] GFR/1.73 sq M.predicted among non-blacks MDRD (S/P/Bld) [Vol rate/Area] 87 mL/min/{1.73_m2} - PINF [facility] Comment on above: Estimated Glomerular Filtration Rate (eGFR) is calculated using the 2020 CKD-EPI creatinine equation. This equation utilizes serum creatinine, sex, and age as parameters. The creatinine assay has traceable calibration to isotope dilution-mass spectrometry. Refer to KDIGO guidelines for clinical interpretation. In patients with unstable renal function, e.g. those with acute kidney injury, the eGFR may not accurately reflect actual GFR. Glucose [Mass/Vol] 75 mg/dL 74 - 99 mg/dL [facility] Comment on above: The [place] Diabete s Association (ADA) provides guidance for cutoff values for fasting glucose and random glucose. The ADA defines fasting as no caloric intake for at least 8 hours. Fasting plasma glucose results between 100 to 125 [...] Standards of Medical Care in Diabetes 2016, [place] Diabetes Association. Diabetes Care. 2016.39(Suppl 1). Potassium [Moles/Vol] 3.6 mmol/L Low 3.7 - 5.1 mmol/L [facility] Protein [Mass/Vol] 8.1 g/dL High 6.3 - 8.0 g/dL [facility] Sodium [Moles/Vol] 141 mmol/L 136 - 144 mmol/L [facility] Urea nitrogen [Mass/Vol] 12 mg/dL 7 - 21 mg/dL [facility] Lipid 1996 panelon 5 Cholesterol [Mass/Vol] 206 mg/dL High NINF - 200 mg/dL [facility] Comment on above: <200 mg/dL, Desirabl e 200-239 mg/dL, Borderline high >239 mg/dL, High Cholesterol in HDL [Mass/Vol] 54 mg/dL 39 - PINF mg/dL [facility] Comment on above: 40-59 mg/dL, Accepta ble >59 mg/dL, High: Negative risk factor for coronary heart disease <40 mg/dL, Low: Positive risk factor for coronary heart disease Cholesterol in LDL [Mass/Vol] 128 mg/dL High NINF - 100 mg/dL [facility] Comment on above: <100 mg/dL, Optimal 100-129 mg/dL, Near optimal/above optimal 130-159 mg/dL, Borderline high 160-189 mg/dL, High >189 mg/dL, Very high Secondary prevention optimal LDL Cholesterol levels are recommended to be <70 mg/dL LDL cholesterol is calculated using the Son-NIH equation. Cholesterol in LDL/Cholesterol in HDL [Mass ratio] 2.37 {ratio} NINF - 2.54 [facility] Comment on above: Reference: 1. National Cholesterol Education Program ATP III Guideline At-A-Glance Quick Desk Reference: National Heart, Lung, and Blood [place]. National Institutes of Health. 2001: NIH Publication No. 01-3305. 2. An International Atherosclerosis Society position paper: global recommendations for the management of dyslipidemia: executive summary, Atherosclerosis. 2014: 232(2):410-413. Cholesterol in VLDL [Mass/Vol] 24 mg/dL NINF - 30 mg/dL [facility] Cholesterol non HDL [Mass/Vol] 152 mg/dL High NINF - 130 mg/dL [facility] Comment on above: <130 mg/dL, Optimal 130-159 mg/dL, Near optimal/above optimal 160-189 mg/dL, Borderline high 190-219 mg/dL, High >219 mg/dL, Very high Secondary prevention optimal non HDL Cholesterol levels are recommended to be <100 mg/dL Cholesterol.total/Chol esterol in HDL [Mass ratio] 3.81 {ratio} NINF - 5.10 [facility] Fasting Time [address] [facility] Triglyceride [Mass/Vol] 135 mg/dL NINF - 150 mg/dL [facility] Comment on above: <150 mg/dL, Normal 150-199 mg/dL, Borderline high 200-499 mg/dL, High >499 mg/dL, Very high No Panel Informationon 11-20 Interpretation and review of laboratory results Normal [facility] Interpretation and review of laboratory results Abnormal [facility] T4 FREE/FREE THYROXINEon Free T4 [Mass/Vol] 1.1 ng/dL 0.9 - 1.7 ng/dL [facility] THYROID STIMULATING HORMONEo n 11-20-2024 TSH Qn 1.310 m[IU]/L [facility] CNOVon 11-19-2024 CNOV Office Visit (FAMPWS ) RONNIE KATZ ([id number]) 1970 F Date Time Provider Department 11/19/24 1:20 PM JENIFER VILLA FAMPWS During your visit today, we recorded the following information about you: Temperature Pulse Respiration Blood pressure 97.7 degrees 91/minute 14/minute 120/76 Weight Height 106.5 kg 1.625 m Jenifer Villa APRN.FLANGING ROLL OPERATOR 11/21/2024 4:39 PM Signed This is a 53 year old female who presents today with: Ronnie Katz is a 53-year-old female with a history of depression and hypothyroidism, presenting for a routine follow-up and medication management. HISTORY OF PRESENT ILLNESS: Depression: - Managed with Effexor 75 mg and 150 mg. - Intermittent thoughts of self-harm. States chronic thoughts of having to continue on through life, but hasn't had attempts or have any plans. - Denies any specific triggers for these thoughts, random. Feels her medications control things well and doesn't desire a change. Hypothyroidism: - Managed with Synthroid 75 mcg daily. - Last thyroid labs were elevated. Weight Management: - Taking phentermine, but ran out 2-3 weeks ago. - Lost 12 lbs since April, with 4 lbs lost since July. - Denies heart palpitations or other side effects from phentermine. - Taking an additional weight loss medication ordered online, more natural. 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 Most Recent 11/21/21 - 11/19/24 09/19/23 13:55 01/05/24 13:56 03/01/24 14:33 04/19/24 10:46 07/09/24 19:05 07/18/24 13:41 11/19/24 13:01 Weight 234 lb 12.8 oz (106.5 kg) 11/19/24 13:01 255 lb (115.7 kg) 241 lb 10 oz (109.6 kg) 238 lb 12.1 oz (108.3 kg) 246 lb 9.6 oz (111.9 kg) 241 lb 10 oz (109.6 kg) 238 lb 3.2 oz (108 kg) 234 lb 12.8 oz (106.5 kg) PAST MEDICAL HISTORY: PAST MEDICAL HISTORY[1] PAST SURGICAL HISTORY Procedure Laterality Date APPENDECTOMY CARPAL TUNNEL 2017 CARPAL TUNNEL Right 2018 CHOLECYSTECTOMY HX 07/05/2023 LIVER BIOPSY 07/05/2023 NEUROPLASTY AND/TRANSPOS MEDIAN NRV CARPAL TUNNE Right 09/13/2016 PAST SURGICAL HISTORY OF Right 02/2024 Knee clean up THYROID LEFT FINE NEEDLE ASPIRATION 08/02/2007 U/ S FNA left thyroid nodule TOTAL THYROID LOBECTOMY UNI W/WO ISTHMUSECTOMY 08/31/2007 LEFT VAGINAL HYSTERECTOMY UTERUS 250 GM/< 12/01/2009 TVH for fibroid, menorrhagia, adenomyosis ALLERGIES Prozac [Fluoxetine Hcl] MEDICATIONS CURRENT MEDICATIONS[2] FAMILY HISTORY[3] SOCIAL HISTORY[4] REVIEW OF SYSTEMS See HPI EXAM: BP 120/76 (BP Site: Left Arm, BP Position: Sitting, BP Cuff Size: Large Adult) Pulse 91 Temp 36.5 ?C (97.7 ?F) Resp 14 Ht 162.5 cm (5' 3.98) Wt 106.5 kg (234 lb 12.8 oz) LMP 11/16/2009 SpO2 97% BMI 40.33 kg/m? PHYSICAL EXAM: General Appearance: Well appearing, alert, in no acute distress, well-hydrated, well nourished.. Lungs: Lungs clear to auscultation. No wheezing, rhonchi, rales.. Heart: RRR without murmur, gallop, or rubs. No ectopy. ASSESSMENT/PLAN: 1. 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 Fatty liver - ICD9: 571.8, ICD10: K76.0 - COMPREHENSIVE METABOLIC PANEL - LIPID 4. Hypokalemia - ICD9: 276.8, ICD10: E87.6 - COMPREHENSIVE METABOLIC PANEL - POTASSIUM CHLORIDE ER 10 MEQ TABLET,EXTENDED RELEASE 5. Mixed hyperlipidemia - ICD9: 272.2, ICD10: E78.2 - Worsening control but stable - Counseled on healthy diet and regular exercise - LIPID PANEL, FASTING 6. IFG (impaired fasting glucose) - ICD9: 790.21, ICD10: R73.01 - METFORMIN ER 500 MG TABLET,EXTENDED RELEASE 24 HR Discussed treatment plan and patient voices understanding. Patient's questions answered appropriately. Medications and potential side effects were discussed and patient voices understanding. Return to the office as scheduled or as needed for worsening/no improvement. Jenifer Villa APRN.FLANGING ROLL OPERATOR Recording using App[employer] - ASO software for draft documentation of the visit was discussed with the patient/authorized arborist representative; all questions welcomed and answered. Patient/authorized arborist representative agreed to proceed [1] PAST MEDICAL HISTORY Diagnosis Date Diastasis of rectus abdominis 12/10 (more content not included)... Normal [facility] Comprehensive metabolic 2000 panelon 11-19-2024 Albumin [Mass/Vol] 4.8 g/dL Normal 3.9-4.9 [facility] Comment on above: Order Comment: Valeria mayen Type: BLOOD SPECIMEN Ordering Facility: [facility] Address: [address] [place] [address] Performed By: #### 2 4323-8, 90246-1, 3024-7, 3016-3 #### [facility] CLIA [id number] [address] [place] [address] [place] ALP [Catalytic activity/Vol] 79 U/L Normal 34-123 [facility] Comment on above: Order Comment: Jennyi faheem Type: BLOOD SPECIMEN Ordering Facility: [facility] Address: [address] [place] [address] Performed By: #### 2 4323-8, 27440-9, 3024-7, 3016-3 #### [facility] CLIA [id number] [address] [place] [address] [place] ALT [Catalytic activity/Vol] 47 U/L High 7-38 [facility] Comment on above: Order Comment: Jennyi men Type: BLOOD SPECIMEN Ordering Facility: [facility] Address: [address] [place] [address] Performed By: #### 2 4323-8, 64996-6, 3024-7, 3016-3 #### [facility] CLIA [id number] [address] [place] [address] [place] Anion gap [Moles/Vol] 15 mmol/L Normal 8-15 [facility] Comment on above: Order Comment: Speci men Type: BLOOD SPECIMEN Ordering Facility: [facility] Address: [address] [place] [address] Performed By: #### 2 4323-8, 58484-2, 3024-7, 3016-3 #### [facility] CLIA [id number] [address] [place] [address] [place] AST [Catalytic activity/Vol] 41 U/L High 13-35 [facility] Comment on above: Order Comment: Speci men Type: BLOOD SPECIMEN Ordering Facility: [facility] Address: [address] [place] [address] Performed By: #### 2 4323-8, 82044-3, 3024-7, 3016-3 #### [facility] CLIA [id number] [address] [place] [address] [place] Bilirubin [Mass/Vol] 0.4 mg/dL Normal 0.2-1.3 [facility] Comment on above: Order Comment: Speci men Type: BLOOD SPECIMEN Ordering Facility: [facility] Address: [address] [place] [address] Performed By: #### 2 4323-8, 23253-3, 3024-7, 3016-3 #### [facility] CLIA [id number] [address] [place] [address] [place] Calcium [Mass/Vol] 10.1 mg/dL Normal 8.5-10.2 [facility] Comment on above: Order Comment: Speci men Type: BLOOD SPECIMEN Ordering Facility: [facility] Address: [address] [place] [address] Performed By: #### 2 4323-8, 91765-3, 3024-7, 3016-3 #### [facility] CLIA [id number] [address] [place] [address] [place] Chloride [Moles/Vol] 98 mmol/L Normal 98-107 [facility] Comment on above: Order Comment: Speci men Type: BLOOD SPECIMEN Ordering Facility: [facility] Address: [address] [place] [address] Performed By: #### 2 4323-8, 82030-3, 3024-7, 3016-3 #### [facility] CLIA [id number] [address] [place] [address] [place] CO2 [Moles/Vol] 28 mmol/L Normal 22-30 [facility] Comment on above: Order Comment: Speci men Type: BLOOD SPECIMEN Ordering Facility: [facility] Address: [address] [place] [address] Performed By: #### 2 4323-8, 62994-8, 3024-7, 3016-3 #### [facility] CLIA [id number] [address] [place] [address] [place] Creatinine [Mass/Vol] 0.81 mg/dL Normal 0.58-0.96 [facility] Comment on above: Order Comment: Speci men Type: BLOOD SPECIMEN Ordering Facility: [facility] Address: [address] [place] [address] Performed By: #### 2 4323-8, 93266-2, 3024-7, 3016-3 #### [facility] CLIA [id number] [address] [place] [address] [place] eGFRcr SerPlBld CKD-EPI 2021 87 mL/min/1.73m??? Normal >=60 [facility] Comment on above: Order Comment: Speci men Type: BLOOD SPECIMEN Ordering Facility: [facility] Address: [address] [place] [address] Result Comment: Yanelis mated Glomerular Filtration Rate (eGFR) is calculated using the 2020 CKD-EPI creatinine equation. This equation utilizes serum creatinine, sex, and age as parameters. The creatinine assay has traceable calibration to isotope dilution-mass spectrometry. Refer to KDIGO guidelines for clinical interpretation. In patients with unstable renal function, e.g. those with acute kidney injury, the eGFR may not accurately reflect actual GFR. Performed By: #### 2 4323-8, 73163-5, 4-7, 3016-3 #### [facility] CLIA [id number] [address] [place] [address] [place] Glucose [Mass/Vol] 75 mg/dL Normal 74-99 [facility] Comment on above: Order Comment: Valerai mayen Type: BLOOD SPECIMEN Ordering Facility: [facility] Address: [address] [place] [address] Result Comment: The [place] Diabetes Association (ADA) provides guidance for cutoff values for fasting glucose and random glucose. The ADA defines fasting as no caloric intake for at least 8 hours. Fasting plasma glucose results between 100 to 125 [...] Standards of Medical Care in Diabetes 2016, [place] Diabetes Association. Diabetes Care. 2016.39(Suppl 1). Performed By: #### 2 4323-8, 22854-0, 4-7, 6-3 #### [facility] CLIA [id number] [address] [place] [address] [place] Potassium [Moles/Vol] 3.6 mmol/L Low 3.7-5.1 [facility] Comment on above: Order Comment: Valeria mayen Type: BLOOD SPECIMEN Ordering Facility: [facility] Address: [address] [place] [address] Performed By: #### 2 4323-8, 48861-4, 3024-7, 3016-3 #### [facility] CLIA [id number] [address] [place], [place] [id number] [place] Protein [Mass/Vol] 8.1 g/dL High 6.3-8.0 [facility] Comment on above: Order Comment: Speci men Type: BLOOD SPECIMEN Ordering Facility: [facility] Address: [address] [place] [address] Performed By: #### 2 4323-8, 15223-2, 3024-7, 3016-3 #### [facility] CLIA [id number] [address] [place] [address] [place] Sodium [Moles/Vol] 141 mmol/L Normal 136-144 [facility] Comment on above: Order Comment: Speci men Type: BLOOD SPECIMEN Ordering Facility: [facility] Address: [address] [place] [address] Performed By: #### 2 4323-8, 75655-8, 3024-7, 3016-3 #### [facility] CLIA [id number] [address] [place] [address] [place] Urea nitrogen [Mass/Vol] 12 mg/dL Normal 7-21 [facility] Comment on above: Order Comment: Speci men Type: BLOOD SPECIMEN Ordering Facility: [facility] Address: [address] [place] [address] Performed By: #### 2 4323-8, 32907-0, 3024-7, 3016-3 #### [facility] CLIA [id number] [address] [place], [place] [address] [place] Lipid 1996 panelon 5 Cholesterol [Mass/Vol] 206 mg/dL High <200 [facility] Comment on above: Order Comment: Speci men Type: BLOOD SPECIMEN Ordering Facility: [facility] Address: [address] [place] [address] Result Comment: <200 mg/dL, Desirable 200-239 mg/dL, Borderline high >239 mg/dL, High Performed By: #### 2 4323-8, 66836-0, 3024-7, 6-3 #### [facility] CLIA [id number] [address] [place], [place] [id number] [place] Cholesterol in HDL [Mass/Vol] 54 mg/dL Normal >39 [facility] Comment on above: Order Comment: Valeria mayen Type: BLOOD SPECIMEN Ordering Facility: [facility] Address: [address] [place] [address] Result Comment: 40-5 9 mg/dL, Acceptable >59 mg/dL, High: Negative risk factor for coronary heart disease <40 mg/dL, Low: Positive risk factor for coronary heart disease Performed By: #### 2 4323-8, 45559-0, 3023-7, 3015-3 #### [facility] CLIA [id number] [address] [place], [place] [address] [facility] Cholesterol in LDL [Mass/Vol] 128 mg/dL High <100 [facility] Comment on above: Order Comment: Valeria mayen Type: BLOOD SPECIMEN Ordering Facility: [facility] Address: [address] [place] [address] Result Comment: <100 mg/dL, Optimal 100-129 mg/dL, Near optimal/above optimal 130-159 mg/dL, Borderline high 160-189 mg/dL, High >189 mg/dL, Very high Secondary prevention optimal LDL Cholesterol levels are recommended to be <70 mg/dL LDL cholesterol is calculated using the Son-NIH equation. Performed By: #### 2 4323-8, 82441-3, 3023-7, 6-3 #### [facility] CLIA [id number] [address] [place], [place] [address] [facility] [place] Cholesterol in LDL/Cholesterol in HDL [Mass ratio] 2.37 {ratio} Normal <2.54 [facility] Comment on above: Order Comment: Valeria mayen Type: BLOOD SPECIMEN Ordering Facility: [facility] Address: [address] [place] [address] Result Comment: Suze barros: 1. National Cholesterol Education Program ATP III Guideline At-A-Glance Quick Desk Reference: National Heart, Lung, and Blood [place]. National Institutes of Health. 2001: NIH Publication No. 01-3305. 2. An International Atherosclerosis Society position paper: global recommendations for the management of dyslipidemia: executive summary, Atherosclerosis. 2014: 232(2):410-413. Performed By: #### 2 4323-8, 03152-6, 3024-7, 3016-3 #### [facility] CLIA [id number] [address] [place] [address] [place] Cholesterol in VLDL [Mass/Vol] 24 mg/dL Normal <30 [facility] Comment on above: Order Comment: Speci men Type: BLOOD SPECIMEN Ordering Facility: [facility] Address: [address] [place] [address] Performed By: #### 2 4323-8, 58673-1, 3023-7, 6-3 #### [facility] CLIA [id number] [address] [place] [address] [place] Cholesterol non HDL [Mass/Vol] 152 mg/dL High <130 [facility] Comment on above: Order Comment: Speci men Type: BLOOD SPECIMEN Ordering Facility: [facility] Address: [address] [place] [address] Result Comment: <130 mg/dL, Optimal 130-159 mg/dL, Near optimal/above optimal 160-189 mg/dL, Borderline high 190-219 mg/dL, High >219 mg/dL, Very high Secondary prevention optimal non HDL Cholesterol levels are recommended to be <100 mg/dL Performed By: #### 2 4323-8, 41642-9, 3024-7, 3016-3 #### [facility] CLIA [id number] [address] [place] [id number] [place] Cholesterol.total/Chol esterol in HDL [Mass ratio] 3.81 {ratio} Normal <5.10 [facility] Comment on above: Order Comment: Speci men Type: BLOOD SPECIMEN Ordering Facility: [facility] Address: [address] [place], [place] [address] Performed By: #### 2 4323-8, 99477-2, 3023-7, 3015-3 #### [facility] CLIA [id number] [address] [place] [address] [place] FASTING TIME 12 hrs Normal [facility] Comment on above: Order Comment: Speci men Type: BLOOD SPECIMEN Ordering Facility: [facility] Address: [address] [place], [place] [address] Performed By: #### 2 4323-8, 27107-9, 7, 3 #### [facility] CLIA [id number] [address] [place] [address] [place] Triglyceride [Mass/Vol] 135 mg/dL Normal <150 [facility] Comment on above: Order Comment: Speci men Type: BLOOD SPECIMEN Ordering Facility: [facility] Address: [address] [place], [place] [address] Result Comment: <150 mg/dL, Normal 150-199 mg/dL, Borderline high 200-499 mg/dL, High >499 mg/dL, Very high Performed By: #### 2 4323-8, 41413-3, 7, 6-3 #### [facility] CLIA [id number] [address] [place] [address] [place] T4 Free SerPl-mCncon 025 Free T4 [Mass/Vol] 1.1 ng/dL Normal 0.9-1.7 [facility] Comment on above: Order Comment: Speci men Type: BLOOD SPECIMEN Ordering Facility: [facility] Address: [address] [place], [place] [address] Performed By: #### 2 4323-8, 27760-9, 3023-7, 3015-3 #### [facility] CLIA [id number] [address] [place], [place] [address] [place] TSH SerPl-aCncon 11-19-2024 TSH Qn 1.310 m[IU]/L Normal 0.270-4.200 [facility] Comment on above: Order Comment: Speci men Type: BLOOD SPECIMEN Ordering Facility: [facility] Address: [address] [place] [address] Performed By: #### 2 4323-8, 96677-5, 3023-7, 6-3 #### [facility] CLIA [id number] [address] [place] [address] [place] CBC W Auto Differential pane l (Bld)on 08-15-2024 Basophils (Bld) [#/Vol] 10*3/uL Normal <0.11 [facility] Comment on above: Order Comment: Speci men Type: BLOOD SPECIMEN Ordering Facility: [facility] Address: [address] [place] [address] Performed By: #### 2 4323-8, 58031-0, 3023-10, 3015-3 #### [facility] CLIA [id number] [address] [place] [address] [place] Basophils/100 WBC (Bld) 0.1 % Normal [facility] Comment on above: Order Comment: Speci men Type: BLOOD SPECIMEN Ordering Facility: [facility] Address: [address] [place] [address] Performed By: #### 2 4323-8, 70858-6, 7, 3015-3 #### [facility] CLIA [id number] [address] [place] [address] [place] Differential cell count method Nom (Bld) Auto Normal [facility] Comment on above: Order Comment: Speci men Type: BLOOD SPECIMEN Ordering Facility: [facility] Address: [address] [place] [address] Performed By: #### 2 4323-8, 61557-4, 3023-7, 3015-3 #### [facility] CLIA [id number] [address] [place] [address] [place] Eosinophils (Bld) [#/Vol] 0.03 10*3/uL Normal <0.46 [facility] Comment on above: Order Comment: Speci men Type: BLOOD SPECIMEN Ordering Facility: [facility] Address: [address] [place] [address] Performed By: #### 2 4323-8, 91277-3, 3023-7, 6-3 #### [facility] CLIA [id number] [address] [place] [address] [place] Eosinophils/100 WBC (Bld) 0.4 % Normal [facility] Comment on above: Order Comment: Speci men Type: BLOOD SPECIMEN Ordering Facility: [facility] Address: [address] [place] [address] Performed By: #### 2 4323-8, 24919-5, 7, 3015-3 #### [facility] CLIA [id number] [address] [place] [address] [place] Erythrocyte distribution width (RBC) [Ratio] 13.1 % Normal 11.5-15.0 [facility] Comment on above: Order Comment: Speci men Type: BLOOD SPECIMEN Ordering Facility: [facility] Address: [address] [place] [address] Performed By: #### 2 4323-8, 93157-3, 7, 3015-3 #### [facility] CLIA [id number] [address] [place], [place] [id number] [place] Hematocrit (Bld) [Volume fraction] 42.1 % Normal 36.0-46.0 [facility] Comment on above: Order Comment: Speci men Type: BLOOD SPECIMEN Ordering Facility: [facility] Address: [address] [place] [address] Performed By: #### 2 4323-8, 19749-5, 3023-7, 3016-3 #### [facility] CLIA [id number] [address] [place], [place] [address] [place] Hemoglobin (Bld) [Mass/Vol] 14.3 g/dL Normal 11.5-15.5 [facility] Comment on above: Order Comment: Speci men Type: BLOOD SPECIMEN Ordering Facility: [facility] Address: [address] [place] [address] Performed By: #### 2 4323-8, 96252-0, 3024-7, 3016-3 #### [facility] CLIA [id number] [address] [place] [address] [place] Immature granulocytes (Bld) [#/Vol] 10*3/uL Normal <0.10 [facility] Comment on above: Order Comment: Speci men Type: BLOOD SPECIMEN Ordering Facility: [facility] Address: [address] [place] [address] Performed By: #### 2 4323-8, 34246-2, 3023-7, 6-3 #### [facility] CLIA [id number] [address] [place] [address] [place] Immature granulocytes/100 WBC (Bld) 0.3 % Normal [facility] Comment on above: Order Comment: Speci men Type: BLOOD SPECIMEN Ordering Facility: [facility] Address: [address] [place] [address] Performed By: #### 2 4323-8, 52275-6, 4-7, 3016-3 #### [facility] CLIA [id number] [address] [place], [place] [phone] [place] Lymphocytes (Bld) [#/Vol] 3.13 10*3/uL Normal 1.00-4.00 [facility] Comment on above: Order Comment: Speci men Type: BLOOD SPECIMEN Ordering Facility: [facility] Address: [address] [place] [address] Performed By: #### 2 4323-8, 43194-0, 3024-7, 3016-3 #### [facility] CLIA [id number] [address] [place] [address] [place] Lymphocytes/100 WBC (Bld) 41.2 % Normal [facility] Comment on above: Order Comment: Speci men Type: BLOOD SPECIMEN Ordering Facility: [facility] Address: [address] [place] [address] Performed By: #### 2 4323-8, 03643-9, 3023-7, 6-3 #### [facility] CLIA [id number] [address] [place] [address] [place] MCH (RBC) [Entitic mass] 30.0 pg Normal 26.0-34.0 [facility] Comment on above: Order Comment: Speci men Type: BLOOD SPECIMEN Ordering Facility: [facility] Address: [address] [place] [address] Performed By: #### 2 4323-8, 54639-1, 7, 6-3 #### [facility] CLIA [id number] [address] [place] [address] [place] MCHC (RBC) [Mass/Vol] 34.0 g/dL Normal 30.5-36.0 [facility] Comment on above: Order Comment: Speci men Type: BLOOD SPECIMEN Ordering Facility: [facility] Address: [address] [place] [address] Performed By: #### 2 4323-8, 34435-4, 7, 6-3 #### [facility] CLIA [id number] [address] [place] [address] [place] MCV (RBC) [Entitic vol] 88.4 fL Normal 80.0-100.0 [facility] Comment on above: Order Comment: Speci men Type: BLOOD SPECIMEN Ordering Facility: [facility] Address: [address] [place] [address] Performed By: #### 2 4323-8, 33000-9, 3024-7, 3016-3 #### [facility] CLIA [id number] [address] [place] [address] [place] Monocytes (Bld) [#/Vol] 0.47 10*3/uL Normal <0.87 [facility] Comment on above: Order Comment: Speci men Type: BLOOD SPECIMEN Ordering Facility: [facility] Address: [address] [place] [address] Performed By: #### 2 4323-8, 19561-6, 3024-7, 3016-3 #### [facility] CLIA [id number] [address] [place] [address] [place] Monocytes/100 WBC (Bld) 6.2 % Normal [facility] Comment on above: Order Comment: Speci men Type: BLOOD SPECIMEN [facility] [facility] Address: [address] [place] [address] Performed By: #### 2 4323-8, 76376-1, 3024-7, 3016-3 #### [facility] CLIA [id number] [address] [place] [address] [place] Neutrophils (Bld) [#/Vol] 3.94 10*3/uL Normal 1.45-7.50 [facility] Comment on above: Order Comment: Speci men Type: BLOOD SPECIMEN Ordering Facility: [facility] Address: [address] [place] [address] Performed By: #### 2 4323-8, 46120-0, 3024-7, 3016-3 #### [facility] CLIA [id number] [address] [place] [address] [place] Neutrophils/100 WBC (Bld) 51.8 % Normal [facility] Comment on above: Order Comment: Speci men Type: BLOOD SPECIMEN Ordering Facility: [facility] Address: [address] [place] [address] Performed By: #### 2 4323-8, 98909-5, 3024-7, 3016-3 #### [facility] CLIA [id number] [address] [place] [address] [place] Nucleated RBC (Bld) [#/Vol] 10*3/uL Normal <0.01 [facility] Comment on above: Order Comment: Speci men Type: BLOOD SPECIMEN Ordering Facility: [facility] Address: [address] [place] [address] Performed By: #### 2 4323-8, 67587-3, 3024-7, 3016-3 #### [facility] CLIA [id number] [address] [place] [address] [place] Nucleated RBC/100 WBC (Bld) [Ratio] 0.0 /100 WBC Normal [facility] Comment on above: Order Comment: Speci men Type: BLOOD SPECIMEN Ordering Facility: [facility] Address: [address] [place] [address] Performed By: #### 2 4323-8, 33338-5, 3024-7, 3016-3 #### [facility] CLIA [id number] [address] [place] [address] [place] Platelet mean volume (Bld) [Entitic vol] 9.1 fL Normal 9.0-12.7 [facility] Comment on above: Order Comment: Speci men Type: BLOOD SPECIMEN Ordering Facility: [facility] Address: [address] [place] [address] Performed By: #### 2 4323-8, 38972-1, 3024-7, 3016-3 #### [facility] CLIA [id number] [address] [place] [address] [place] Platelets (Bld) [#/Vol] 349 10*3/uL Normal 150-400 [facility] Comment on above: Order Comment: Speci men Type: BLOOD SPECIMEN Ordering Facility: [facility] Address: [address] [place] [address] Performed By: #### 2 4323-8, 90187-9, 3023-7, 6-3 #### [facility] CLIA [id number] [address] [place] [address] [place] RBC (Bld) [#/Vol] 4.76 10*6/uL Normal 3.90-5.20 [facility] Comment on above: Order Comment: Speci men Type: BLOOD SPECIMEN Ordering Facility: [facility] Address: [address] [place] [address] Performed By: #### 2 4323-8, 47143-1, 7, 3015-3 #### [facility] CLIA [id number] [address] [place] [address] [place] WBC (Bld) [#/Vol] 7.60 10*3/uL Normal 3.70-11.00 [facility] Comment on above: Order Comment: Speci men Type: BLOOD SPECIMEN Ordering Facility: [facility] Address: [address] [place] [address] Performed By: #### 2 4323-8, 65619-3, 3023-10, 3015-3 #### [facility] CLIA [id number] [address] [place] [address] [place] Calcium.ionized [Moles/Vol]o n 08-15-2024 Calcium.ionized (Bld) [Mass/Vol] 1.22 mmol/L Normal 1.08-1.30 [facility] Comment on above: Order Comment: Speci men Type: BLOOD SPECIMEN Ordering Facility: [facility] Address: [address] [place] [address] Performed By: #### 2 4323-8, 48589-9, 7, 3015-3 #### [facility] CLIA [id number] [address] [place] [address] [place] Calcium.ionized adjusted to pH 7.4 (Bld) [Moles/Vol] 1.22 mmol/L Normal 1.08-1.30 [facility] Comment on above: Order Comment: Speci men Type: BLOOD SPECIMEN Ordering Facility: [facility] Address: [address] [place] [address] Performed By: #### 2 4323-8, 21236-5, 3024-7, 3016-3 #### [facility] CLIA [id number] [address] [place] [address] [place] Comprehensive metabolic 2000 panelon 08-15-2024 Albumin [Mass/Vol] 5.0 g/dL High 3.9-4.9 [facility] Comment on above: Order Comment: Speci men Type: BLOOD SPECIMEN Ordering Facility: [facility] Address: [address] [place] [address] Performed By: #### 2 4323-8, 01456-4, 3023-7, 6-3 #### [facility] CLIA [id number] [address] [place] [address] [place] ALP [Catalytic activity/Vol] 82 U/L Normal 34-123 [facility] Comment on above: Order Comment: Speci men Type: BLOOD SPECIMEN Ordering Facility: [facility] Address: [address] [place] [address] Performed By: #### 2 4323-8, 69254-4, 302-7, 6-3 #### [facility] CLIA [id number] [address] [place] [address] [place] ALT [Catalytic activity/Vol] 57 U/L High 7-38 [facility] Comment on above: Order Comment: Speci men Type: BLOOD SPECIMEN Ordering Facility: [facility] Address: [address] [place] [address] Performed By: #### 2 4323-8, 16772-1, 3024-7, 3016-3 #### [facility] CLIA [id number] [address] [place] [address] [place] Anion gap [Moles/Vol] 18 mmol/L High 8-15 [facility] Comment on above: Order Comment: Speci men Type: BLOOD SPECIMEN Ordering Facility: [facility] Address: [address] [place] [address] Performed By: #### 2 4323-8, 19209-6, 3024-7, 3016-3 #### [facility] CLIA [id number] [address] [place] [address] [place] AST [Catalytic activity/Vol] 47 U/L High 13-35 [facility] Comment on above: Order Comment: Speci men Type: BLOOD SPECIMEN Ordering Facility: [facility] Address: [address] [place] [address] Performed By: #### 2 4323-8, 90595-0, 302-7, 6-3 #### [facility] CLIA [id number] [address] [place] [address] [place] Bilirubin [Mass/Vol] 0.3 mg/dL Normal 0.2-1.3 [facility] Comment on above: Order Comment: Speci men Type: BLOOD SPECIMEN Ordering Facility: [facility] Address: [address] [place] [address] Performed By: #### 2 4323-8, 97229-8, 302-7, 3016-3 #### [facility] CLIA [id number] [address] [place] [address] [place] Calcium [Mass/Vol] 10.1 mg/dL Normal 8.5-10.2 [facility] Comment on above: Order Comment: Speci men Type: BLOOD SPECIMEN Ordering Facility: [facility] Address: [address] [place] [address] Performed By: #### 2 4323-8, 41321-4, 3024-7, 3016-3 #### [facility] CLIA [id number] [address] [place] [address] [place] Chloride [Moles/Vol] 99 mmol/L Normal 98-107 [facility] Comment on above: Order Comment: Speci men Type: BLOOD SPECIMEN Ordering Facility: [facility] Address: [address] [place] [address] Performed By: #### 2 4323-8, 15421-9, 3024-7, 3016-3 #### [facility] CLIA [id number] [address] [place] [address] [place] CO2 [Moles/Vol] 26 mmol/L Normal 22-30 [facility] Comment on above: Order Comment: Speci men Type: BLOOD SPECIMEN Ordering Facility: [facility] Address: [address] [place] [address] Performed By: #### 2 4323-8, 18063-8, 3024-7, 3016-3 #### [facility] CLIA [id number] [address] [place] [address] [place] Creatinine [Mass/Vol] 0.95 mg/dL Normal 0.58-0.96 [facility] Comment on above: Order Comment: Speci men Type: BLOOD SPECIMEN Ordering Facility: [facility] Address: [address] [place] [address] Performed By: #### 2 4323-8, 65349-2, 3024-7, 3016-3 #### [facility] CLIA [id number] [address] [place] [address] [place] Creatinine and Glomerular filtration rate.predicted panel (S/P/Bld) 72 mL/min/1.73m??? Normal >=60 [facility] Comment on above: Order Comment: Speci men Type: BLOOD SPECIMEN Ordering Facility: [facility] Address: [address] [place] [address] Result Comment: Yanelis mated Glomerular Filtration Rate (eGFR) is calculated using the 2020 CKD-EPI creatinine equation. This equation utilizes serum creatinine, sex, and age as parameters. The creatinine assay has traceable calibration to isotope dilution-mass spectrometry. Refer to KDIGO guidelines for clinical interpretation. In patients with unstable renal function, e.g. those with acute kidney injury, the eGFR may not accurately reflect actual GFR. Performed By: #### 2 4323-8, 30231-3, 3023-7, 6-3 #### [facility] CLIA [id number] [address] [place] [address] [place] Glucose [Mass/Vol] 86 mg/dL Normal 74-99 [facility] Comment on above: Order Comment: Valeria mayen Type: BLOOD SPECIMEN Ordering Facility: [facility] Address: [address] [place] [address] Result Comment: The [place] Diabetes Association (ADA) provides guidance for cutoff values for fasting glucose and random glucose. The ADA defines fasting as no caloric intake for at least 8 hours. Fasting plasma glucose results between 100 to 125 [...] Standards of Medical Care in Diabetes 2016, [place] [employer]. Diabetes Care. 2016.39(Suppl 1). Performed By: #### 2 4323-8, 32684-2, 3023-10, 3 #### [facility] CLIA [id number] [address] [place], [place] [id number] [place] Potassium [Moles/Vol] 3.8 mmol/L Normal 3.7-5.1 [facility] Comment on above: Order Comment: Valeria mayen Type: BLOOD SPECIMEN Ordering Facility: [facility] Address: [address] [place] [address] Performed By: #### 2 4323-8, 41659-3, 3023-7, 3015-3 #### [facility] CLIA [id number] [address] [place] [address] [place] Protein [Mass/Vol] 8.0 g/dL Normal 6.3-8.0 [facility] Comment on above: Order Comment: Speci men Type: BLOOD SPECIMEN Ordering Facility: [facility] Address: [address] [place], [place] [address] Performed By: #### 2 4323-8, 50468-9, 3024-7, 3016-3 #### [facility] CLIA [id number] [address] [place], [place] [address] [place] Sodium [Moles/Vol] 143 mmol/L Normal 136-144 [facility] Comment on above: Order Comment: Speci men Type: BLOOD SPECIMEN Ordering Facility: [facility] Address: [address] [place] [address] Performed By: #### 2 4323-8, 45802-6, 3023-7, 6-3 #### [facility] CLIA [id number] [address] [place], [place] [address] [place] Urea nitrogen [Mass/Vol] 11 mg/dL Normal 7-21 [facility] Comment on above: Order Comment: Speci men Type: BLOOD SPECIMEN Ordering Facility: [facility] Address: [address] [place] [address] Performed By: #### 2 4323-8, 49368-7, 302-7, 3016-3 #### [facility] CLIA [id number] [address] [place] [address] [place] PTH-Intact SerPl-mCncon 05-0 -2024 Parathyrin.intact [Mass/Vol] 48 pg/mL Normal 15-65 [facility] Comment on above: Order Comment: Speci men Type: BLOOD SPECIMEN Ordering Facility: [facility] Address: [address] [place], [place] [address] Performed By: #### 2 4323-8, 97417-7, 3023-7, 3016-3 #### [facility] JANES [id number] [address] [place] [address] [place] CNOVon 08-06-2024 CNOV Office Visit (PODIWS ) RONNIE KATZ ([id number]) 1970 F [place] Date Time Provider Department 08/06/24 2:30 PM EREN CALDERON PODIWS During your visit today, we recorded the following information about you: Trini Barr LPN 08/06/2024 3:13 PM Signed AMB ROOMING INTAKE FLOWSHEET DATA Pain Pain Level: 4 Pain Location: Other: See Comment (bilateral feet) Description: Dull Duration Amount of Time: 4 Duration Units: Months Frequency: Intermittent Intervention/Comfort measure: Reposition, Relaxation Patient presents with: Left Foot - Pain, Established Patient Right Foot - Pain, Established Patient DACIA Smith Matthew 08/06/2024 3:01 PM Signed Powerstep Original Full length. Can purchase at [facility] [employer] and boots,shoes and more here in [place], [employer] in [place] or [place]. Also can find in [employer] in [facility]. Powersteps can also be purchased online, starting around $45.00 If you have a metatarsal or dancer pad for your feet apply the pad directly to the insole so you can interchange between your shoes. Find a shoe with a removable insole and take this out and replace with your powerstep insole. Always bring powersteps with you when shopping for shoes so that you can make sure that everything fits well together What is Plantar Fasciitis? Plantar fasciitis is the most common cause of heel pain. The pain is caused by inflammation of the plantar fascia. If you strain your plantar fascia, it becomes weak, swollen and irritated (inflamed). The resulting pain may be isolated in the heel or may appear at different points on the bottom of the foot, from time to time; it may occur in one foot or both. Some think that plantar fasciitis pain is caused by irritation of nerves from tissue swelling or inflammation, but it is debatable. Plantar fasciitis is common in middle-aged people; it also occurs in younger people who are on their feet a lot, such as athletes or soldiers. The plantar fascia is a strong band of connective tissue that extends from the base of the toes, along the bottom of the foot, to the bottom of the heel (calcaneous bone); it acts like a bowstring to maintain the arch of the foot. What are heel spurs? The inflammatory reaction of the heel bone may produce spike-like projections of new bone, called heel spurs. The spurs sometimes show on X-rays. They neither cause the initial pain nor do they cause the initial problem. However, later, having to walk on spurs may cause sharp pain. What causes plantar fasciitis? Plantar fasciitis is caused by straining the ligament that supports your arch. Repeated strain can cause tiny tears in the ligament. These lead to pain and swelling. During walking, the plantar fascia experiences tension up to twice the body weight with each step. While this is normal, those who spend much time on their feet, such as nurses, head waitress/waiters, and mail carriers, often experience plantar fasciitis. Athletes involved in tennis or other racquet sports, race walking, jogging or running also show a higher incidence of plantar fasciitis than do those participating in other activities. Thus, it's clear that plantar fasciitis is predominantly an overuse injury. In fact, any activity that results in prolonged tension and stress on the plantar fascia may cause plantar fasciitis. It is possible that changes in footwear may play a role in causing plantar fasciitis, no matter what activity is occurring. Those who are overweight are prone to plantar fasciitis. This is true even for sedentary people who get little physical activity. Abnormalities of the foot and ankle joints may predispose some individuals to development of plantar fasciitis (specifically, over pronation of the subtalar joint). Contributing Factors * Flat feet * Toe running, hill running * Sudden weight increase * High-arched, rigid feet * Soft terrain, e.g. running on sand * Obesity * Pronated feet (rolled inward) * Sudden increase in activity * Family tendency * Poor shoe support * Worn out or poorly fitted shoes * Increasing age * Walking, standing or running for long periods of time, especially on hard surfaces. How is the Injury Treated? Rest Your Feet: Limit, or if possible, stop activities that are causing your heel pain. Try to avoid running or walking on hard surfaces, such as concrete. Use pain as your guide. If your foot is too painful, rest it. Ice: Ice the sore area for 30 to 60 minutes, several times a day, to reduce inflammation and relieve pain. Apply a plastic bag of crushed ice (or a bag of frozen peas) over a towel. Ice the sore area for 15 minutes after activity/exercise. Application of heat is not generally recommended, as heat expands the bone and connective tissue, perhaps exerting greater pressure on nerves and thereby increasing pain. I (more content not included)... Normal [facility] 25(OH)D3 [facility] 2024 25-hydroxyvitamin D3 [Mass/Vol] 79.4 ng/mL Normal 31.0-80.0 [facility] Comment on above: Order Comment: Speci men Type: BLOOD SPECIMEN Ordering Facility: [facility] Address: [address] [place] [address] Result Comment: Clas sification of 25 [place] Vitamin D status: Deficiency/Insufficiency: < or = 30 ng/ml. Sufficiency/Optimal Levels: 31-80 ng/mL Toxicity: > 100 ng/mL. Test performed by chemiluminescent immunoassay. Performed By: #### 2 4323-8, 81035-6, 3023-7, 3015-3 #### [facility] CLIA [id number] [address] [place] [address] [place] CBC panel Auto (Bld)on 07-18 Erythrocyte distribution width (RBC) [Ratio] 12.8 % Normal 11.5-15.0 [facility] Comment on above: Order Comment: Speci men Type: BLOOD SPECIMEN Ordering Facility: [facility] Address: [address] [place] [address] Performed By: #### 2 4323-8, 54345-1, 3023-7, 3015-3 #### [facility] CLIA [id number] [address] [place] [address] [place] Hematocrit (Bld) [Volume fraction] 46.6 % High 36.0-46.0 [facility] Comment on above: Order Comment: Speci men Type: BLOOD SPECIMEN Ordering Facility: [facility] Address: [address] [place] [address] Performed By: #### 2 4323-8, 65236-1, 3024-7, 3016-3 #### [facility] CLIA [id number] [address] [place] [address] [place] Hemoglobin (Bld) [Mass/Vol] 15.8 g/dL High 11.5-15.5 [facility] Comment on above: Order Comment: Speci men Type: BLOOD SPECIMEN Ordering Facility: [facility] Address: [address] [place] [address] Performed By: #### 2 4323-8, 91242-8, 3027, 6-3 #### [facility] CLIA [id number] [address] [place] [address] [place] MCH (RBC) [Entitic mass] 30.1 pg Normal 26.0-34.0 [facility] Comment on above: Order Comment: Speci men Type: BLOOD SPECIMEN Ordering Facility: [facility] Address: [address] [place] [address] Performed By: #### 2 4323-8, 96804-1, 3024-7, 3016-3 #### [facility] CLIA [id number] [address] [place] [address] [place] MCHC (RBC) [Mass/Vol] 33.9 g/dL Normal 30.5-36.0 [facility] Comment on above: Order Comment: Speci men Type: BLOOD SPECIMEN Ordering Facility: [facility] Address: [address] [place] [address] Performed By: #### 2 4323-8, 30393-1, 3024-7, 3016-3 #### [facility] CLIA [id number] [address] [place] [address] [place] MCV (RBC) [Entitic vol] 88.8 fL Normal 80.0-100.0 [facility] Comment on above: Order Comment: Speci men Type: BLOOD SPECIMEN Ordering Facility: [facility] Address: [address] [place] [address] Performed By: #### 2 4323-8, 68110-3, 3024-7, 3016-3 #### [facility] CLIA [id number] [address] [place] [address] [place] Nucleated RBC (Bld) [#/Vol] 10*3/uL Normal <0.01 [facility] Comment on above: Order Comment: Speci men Type: BLOOD SPECIMEN Ordering Facility: [facility] Address: [address] [place] [address] Performed By: #### 2 4323-8, 21073-7, 3024-7, 3016-3 #### [facility] CLIA [id number] [address] [place] [address] [place] Platelet mean volume (Bld) [Entitic vol] 8.8 fL Low 9.0-12.7 [facility] Comment on above: Order Comment: Speci men Type: BLOOD SPECIMEN Ordering Facility: [facility] Address: [address] [place] [address] Performed By: #### 2 4323-8, 24744-6, 3024-7, 3016-3 #### [facility] CLIA [id number] [address] [place] [address] [place] Platelets (Bld) [#/Vol] 404 10*3/uL High 150-400 [facility] Comment on above: Order Comment: Speci men Type: BLOOD SPECIMEN Ordering Facility: [facility] Address: [address] [place] [address] Performed By: #### 2 4323-8, 91160-2, 3024-7, 3016-3 #### [facility] CLIA [id number] [address] [place] [address] [place] RBC (Bld) [#/Vol] 5.25 10*6/uL High 3.90-5.20 [facility] Comment on above: Order Comment: Speci men Type: BLOOD SPECIMEN Ordering Facility: [facility] Address: [address] [place] [address] Performed By: #### 2 4323-8, 13842-0, 3024-7, 3016-3 #### [facility] CLIA [id number] [address] [place] [address] [place] WBC (Bld) [#/Vol] 9.71 10*3/uL Normal 3.70-11.00 [facility] Comment on above: Order Comment: Speci men Type: BLOOD SPECIMEN Ordering Facility: [facility] Address: [address] [place] [address] Performed By: #### 2 4323-8, 48945-8, 3024-7, 3016-3 #### [facility] CLIA [id number] [address] [place] [address] [place] CNOVon 07-18-2024 CNOV Office Visit (NICAWS ) RONNIE KATZ ([id number]) 1970 F Date Time Provider Department 07/18/24 1:20 PM ADIA ROBLES During your visit today, we recorded the following information about you: Pulse Blood pressure Weight 84/minute 122/78 108 kg Adia Robles APRN.[employer]ANGING [employer] OPERATOR 07/18/2024 6:32 PM Signed Chief Complaint Patient presents with: F/U 3 Month: Adipex HPI Ronnie Katz is a 53 year old female who presents here today for Above Complaints.. Adipex 3.7mg daily- Metformin XR 500mg twice daily Tolerating both well, would like to be losing more weight. Wants to try taking probiotics to see if this helps. Would like to continue both medications Most Recent 07/20/21 - 07/18/24 08/16/23 12:47 09/19/23 13:55 01/05/24 13:56 03/01/24 14:33 04/19/24 10:46 07/09/24 19:05 07/18/24 13:41 Weight 238 lb 3.2 oz (108 kg) 07/18/24 13:41 259 lb (117.5 kg) 255 lb (115.7 kg) 241 lb 10 oz (109.6 kg) 238 lb 12.1 oz (108.3 kg) 246 lb 9.6 oz (111.9 kg) 241 lb 10 oz (109.6 kg) 238 lb 3.2 oz (108 kg) Left ball off foot-feels numb after work. Isn't necessarily painful. Past medical history, appointments, medications, allergies reviewed. Previous Medical History PAST MEDICAL HISTORY Diagnosis Date Diastasis of rectus abdominis 12/11/2015 Dysthymic disorder Depression (non-psychotic) Environmental allergies Spring worse. Gallstones Genital herpes, unspecified 01/09/2007 HSV (herpes simplex virus) anogenital infection 1990 Hypercholesteremia 05/2015 Leukocytoclastic vasculitis (HCC) 2012 dx by Aliyah Wallace Onychomycosis SHAINA (obstructive sleep apnea) 04/13/2017 Persistent asthma without complication 06/12/2018 + JADA 06/2018, chronic cough, abnormal RAST. Previous Surgical History PAST SURGICAL HISTORY Procedure Laterality Date APPENDECTOMY CARPAL TUNNEL 2017 CARPAL TUNNEL Right 2018 CHOLECYSTECTOMY HX 07/05/2023 LIVER BIOPSY 07/05/2023 NEUROPLASTY AND/TRANSPOS MEDIAN NRV CARPAL TUNNE Right 09/13/2016 PAST SURGICAL HISTORY OF Right 02/2024 Knee clean up THYROID LEFT FINE NEEDLE ASPIRATION 08/02/2007 U/ S FNA left thyroid nodule TOTAL THYROID LOBECTOMY UNI W/WO ISTHMUSECTOMY 08/31/2007 LEFT VAGINAL HYSTERECTOMY UTERUS 250 GM/< 12/01/2009 TVH for fibroid, menorrhagia, adenomyosis Family History FAMILY HISTORY Problem Relation Age of Onset other (FIBROMYALGIA) Mother Lipids Father Ischemic Heart Disease Father Heart Father GA has hole in heart Stroke Father Diabetes Father Stroke Maternal Grandmother Alzheimer's Disease Maternal Grandmother Psychiatry Maternal Grandmother DEMENTIA Breast Cancer Maternal Grandmother Diabetes Other pcousin Heart Sister Hole in heart Thyroid Sister Allergies No Family History Asthma No Family History Patient Allergies ALLERGIES Allergen Reactions Prozac [Fluoxetine * Mental Status Change Aggressive behavior, emotional Current Medications Current Outpatient Medications on File Prior to Visit Medication Sig ondansetron (ZOFRAN) 4 mg tablet Take 1 tablet by mouth every 8 hours as needed for nausea/vomiting. Calcium-Cholecalcifer ol, D3, 600 mg-10 mcg (400 unit) cap Take 1 capsule by mouth once daily. venlafaxine ER (EFFEXOR XR) 150 mg 24 hr capsule Take 1 capsule by mouth once daily. venlafaxine ER (EFFEXOR XR) 75 mg 24 hr capsule Take 1 capsule by mouth once daily. metFORMIN ER (GLUCOPHAGE XR) 500 mg 24 hr tablet Take 2 tablets by mouth once daily. With dinner. Phentermine HCl 37.5 mg tablet Take 1 tablet by mouth once daily for 90 days. BMI 42.62 dexAMETHasone 0.1 % ophthalmic solution Instill 1 drop into affected ear canal once daily as needed potassium chloride (K-TAB) 10 mEq tablet Take 1 tablet by mouth daily with breakfast. traZODone (DESYREL) 50 mg tablet Take 1 tablet by mouth daily at bedtime. levothyroxine (SYNTHROID) 75 mcg tablet Take 1 tablet by mouth daily 5 days per week. Take 1.5 tablets by mouth daily 2 days per week. Take in the morning on an empty stomach. pantoprazole DR (PROTONIX) 40 mg tablet Take 1 tablet by mouth once daily. furosemide (LASIX) 40 mg tablet Take 1 tablet by mouth two times a day. metFORMIN ER (FORTAMET) 500 mg 24 hr tablet Take 1 tablet by mouth daily with dinner. Take two tablets by mouth daily with dinner. loratadine (CLARITIN) 10 mg tablet Take 1 tablet by mouth once daily. albuterol HFA (PROVENTIL HFA, VENTOLIN HFA) 90 mcg/actuation inhaler Inhale 2 Puffs as instructed every 4 hours as needed. cholecalciferol (VITAMIN D3) 50 mcg (2,000 unit) tablet Take 1 tablet by mouth once daily. CPAP Initiate CPAP @ 10 cm of water with humidification. Mask (per patient preference) optional chin strap (if indicated) , filters, tubing, humidifier and lifetime supplies. COMPOUNDED PRESCRIPTION CPAP Supplies; hose; mask DX: SHAINA multivitamins(DAILY V (more content not included)... Normal [facility] Comprehensive metabolic 2000 panelon 07-18-2024 Albumin [Mass/Vol] 5.0 g/dL High 3.9-4.9 [facility] Comment on above: Order Comment: Speci men Type: BLOOD SPECIMEN Ordering Facility: [facility] Address: [address] [place] [address] Performed By: #### 2 4323-8, 91725-4, 3024-7, 3016-3 #### [facility] CLIA [id number] [address] [place] [address] [place] ALP [Catalytic activity/Vol] 86 U/L Normal 34-123 [facility] Comment on above: Order Comment: Speci men Type: BLOOD SPECIMEN Ordering Facility: [facility] Address: [address] [place] [address] Performed By: #### 2 4323-8, 57463-9, 3024-7, 3016-3 #### [facility] CLIA [id number] [address] [place] [address] [place] ALT [Catalytic activity/Vol] 57 U/L High 7-38 [facility] Comment on above: Order Comment: Speci men Type: BLOOD SPECIMEN Ordering Facility: [facility] Address: [address] [place] [address] Performed By: #### 2 4323-8, 91909-6, 3024-7, 3016-3 #### [facility] CLIA [id number] [address] [place], [place] [id number] [place] Anion gap [Moles/Vol] 17 mmol/L High 8-15 [facility] Comment on above: Order Comment: Speci men Type: BLOOD SPECIMEN Ordering Facility: [facility] Address: [address] [place] [address] Performed By: #### 2 4323-8, 18446-1, 3024-7, 3016-3 #### [facility] CLIA [id number] [address] [place] [address] [place] AST [Catalytic activity/Vol] 44 U/L High 13-35 [facility] Comment on above: Order Comment: Speci men Type: BLOOD SPECIMEN Ordering Facility: [facility] Address: [address] [place] [address] Performed By: #### 2 4323-8, 67553-7, 302-7, 6-3 #### [facility] CLIA [id number] [address] [place] [address] [place] Bilirubin [Mass/Vol] 0.3 mg/dL Normal 0.2-1.3 [facility] Comment on above: Order Comment: Speci men Type: BLOOD SPECIMEN Ordering Facility: [facility] Address: [address] [place] [address] Performed By: #### 2 4323-8, 51455-7, 3023-7, 6-3 #### [facility] CLIA [id number] [address] [place] [address] [place] Calcium [Mass/Vol] 10.7 mg/dL High 8.5-10.2 [facility] Comment on above: Order Comment: Speci men Type: BLOOD SPECIMEN Ordering Facility: [facility] Address: [address] [place] [address] Performed By: #### 2 4323-8, 46179-5, 3024-7, 3016-3 #### [facility] CLIA [id number] [address] [place] [address] [place] Chloride [Moles/Vol] 96 mmol/L Low 98-107 [facility] Comment on above: Order Comment: Speci men Type: BLOOD SPECIMEN Ordering Facility: [facility] Address: [address] [place] [address] Performed By: #### 2 4323-8, 54313-0, 3024-7, 3016-3 #### [facility] CLIA [id number] [address] [place] [address] [place] CO2 [Moles/Vol] 29 mmol/L Normal 22-30 [facility] Comment on above: Order Comment: Speci men Type: BLOOD SPECIMEN Ordering Facility: [facility] Address: [address] [place] [address] Performed By: #### 2 4323-8, 03418-4, 3024-7, 3016-3 #### [facility] CLIA [id number] [address] [place] [address] [place] Creatinine [Mass/Vol] 0.90 mg/dL Normal 0.58-0.96 [facility] Comment on above: Order Comment: Speci men Type: BLOOD SPECIMEN Ordering Facility: [facility] Address: [address] [place] [address] Performed By: #### 2 4323-8, 43344-9, 3024-7, 3016-3 #### [facility] CLIA [id number] [address] [place] [address] [place] Creatinine and Glomerular filtration rate.predicted panel (S/P/Bld) 77 mL/min/1.73m??? Normal >=60 [facility] Comment on above: Order Comment: Speci men Type: BLOOD SPECIMEN Ordering Facility: [facility] Address: [address] [place] [address] Result Comment: Yanelis mated Glomerular Filtration Rate (eGFR) is calculated using the 2020 CKD-EPI creatinine equation. This equation utilizes serum creatinine, sex, and age as parameters. The creatinine assay has traceable calibration to isotope dilution-mass spectrometry. Refer to KDIGO guidelines for clinical interpretation. In patients with unstable renal function, e.g. those with acute kidney injury, the eGFR may not accurately reflect actual GFR. Performed By: #### 2 4323-8, 28228-9, 3023-7, 6-3 #### [facility] CLIA [id number] [address] [address] [place] Glucose [Mass/Vol] 67 mg/dL Low 74-99 [facility] Comment on above: Order Comment: Valeria mayen Type: BLOOD SPECIMEN Ordering Facility: [facility] Address: [address] [place] [address] Result Comment: The [place] Diabetes Association (ADA) provides guidance for cutoff values for fasting glucose and random glucose. The ADA defines fasting as no caloric intake for at least 8 hours. Fasting plasma glucose results between 100 to 125 [...] Standards of Medical Care in Diabetes 2016, [place] Diabetes Association. Diabetes Care. 2016.39(Suppl 1). Performed By: #### 2 4323-8, 47438-9, 3023-7, 3015-3 #### [facility] CLIA [id number] [address] [address] [place] Potassium [Moles/Vol] 3.6 mmol/L Low 3.7-5.1 [facility] Comment on above: Order Comment: Valeria mayen Type: BLOOD SPECIMEN Ordering Facility: [facility] Address: [address] [place] [address] Performed By: #### 2 4323-8, 05782-9, 3023-7, 6-3 #### [facility] CLIA [id number] [address] [address] [place] Protein [Mass/Vol] 8.7 g/dL High 6.3-8.0 [facility] Comment on above: Order Comment: Speci men Type: BLOOD SPECIMEN Ordering Facility: [facility] Address: [address] [place] [address] Performed By: #### 2 4323-8, 52921-0, 3024-7, 3016-3 #### [facility] CLIA [id number] [address] [place] [address] [place] Sodium [Moles/Vol] 142 mmol/L Normal 136-144 [facility] Comment on above: Order Comment: Speci men Type: BLOOD SPECIMEN Ordering Facility: [facility] Address: [address] [place] [address] Performed By: #### 2 4323-8, 21999-7, 4-7, 6-3 #### [facility] CLIA [id number] [address] [place] [address] [place] Urea nitrogen [Mass/Vol] 14 mg/dL Normal 7-21 [facility] Comment on above: Order Comment: Speci men Type: BLOOD SPECIMEN Ordering Facility: [facility] Address: [address] [place] [address] Performed By: #### 2 4323-8, 74832-4, 3023-7, 3016-3 #### [facility] CLIA [id number] [address] [place] [address] [place] Lipid 1996 panelon 5 Cholesterol [Mass/Vol] 202 mg/dL High <200 [facility] Comment on above: Order Comment: Speci men Type: BLOOD SPECIMEN Ordering Facility: [facility] Address: [address] [place] [address] Result Comment: <200 mg/dL, Desirable 200-239 mg/dL, Borderline high >239 mg/dL, High Performed By: #### 2 4323-8, 65204-2, 3024-7, 3016-3 #### [facility] CLIA [id number] [address] [facility] Cholesterol in HDL [Mass/Vol] 54 mg/dL Normal >39 [facility] Comment on above: Order Comment: Valeria mayen Type: BLOOD SPECIMEN Ordering Facility: [facility] Address: [address] [place] [address] Result Comment: 40-5 9 mg/dL, Acceptable >59 mg/dL, High: Negative risk factor for coronary heart disease <40 mg/dL, Low: Positive risk factor for coronary heart disease Performed By: #### 2 4323-8, 97032-5, 3024-7, 3016-3 #### [facility] CLIA [id number] [address] [place] [address] Cholesterol in LDL [Mass/Vol] 120 mg/dL High <100 [facility] Comment on above: Order Comment: Valeria mayen Type: BLOOD SPECIMEN Ordering Facility: [facility] Address: [address] [place] [address] Result Comment: <100 mg/dL, Optimal 100-129 mg/dL, Near optimal/above optimal 130-159 mg/dL, Borderline high 160-189 mg/dL, High >189 mg/dL, Very high Secondary prevention optimal LDL Cholesterol levels are recommended to be < 70 mg/dL Performed By: #### 2 4323-8, 66667-3, 3024-7, 3016-3 #### [facility] CLIA [id number] [address] [place] [address] [facility] Cholesterol in LDL/Cholesterol in HDL [Mass ratio] 2.22 {ratio} Normal <2.54 [facility] Comment on above: Order Comment: Valeria mayen Type: BLOOD SPECIMEN Ordering Facility: [facility] Address: [address] [place] [address] Result Comment: Suze barros: 1. National Cholesterol Education Program ATP III Guideline At-A-Glance Quick Desk Reference: National Heart, Lung, and Blood [place]. National Institutes of Health. 2001: NIH Publication No. 01-3305. 2. An International Atherosclerosis Society position paper: global recommendations for the management of dyslipidemia: executive summary, Atherosclerosis. 2014: 232(2):410-413. Performed By: #### 2 4323-8, 95411-2, 4-7, 6-3 #### [facility] CLIA [id number] [address] [place], [place] [address] [place] Cholesterol in VLDL [Mass/Vol] 28 mg/dL Normal <30 [facility] Comment on above: Order Comment: Jennyi men Type: BLOOD SPECIMEN Ordering Facility: [facility] Address: [address] [place] [address] Performed By: #### 2 4323-8, 85063-0, 3023-7, 6-3 #### [facility] CLIA [id number] [address] [place] [address] [place] Cholesterol non HDL [Mass/Vol] 148 mg/dL High <130 [facility] Comment on above: Order Comment: Valeria mayen Type: BLOOD SPECIMEN Ordering Facility: [facility] Address: [address] [place] [address] Result Comment: <130 mg/dL, Optimal 130-159 mg/dL, Near optimal/above optimal 160-189 mg/dL, Borderline high 190-219 mg/dL, High >219 mg/dL, Very high Secondary prevention optimal non HDL Cholesterol levels are recommended to be <100 mg/dL Performed By: #### 2 4323-8, 44467-6, 3023-7, 6-3 #### [facility] CLIA [id number] [address] [place], [place] [address] [place] Cholesterol.total/Chol esterol in HDL [Mass ratio] 3.74 {ratio} Normal <5.10 [facility] Comment on above: Order Comment: Valeria men Type: BLOOD SPECIMEN Ordering Facility: [facility] Address: [address] [place], [place] [address] Performed By: #### 2 4323-8, 93946-3, 3023-7, 6-3 #### [facility] CLIA [id number] [address] [place] [address] [place] FASTING TIME 12 hrs Normal [facility] Comment on above: Order Comment: Speci men Type: BLOOD SPECIMEN Ordering Facility: [facility] Address: [address] [place] [address] Performed By: #### 2 4323-8, 60140-8, 3024-7, 3016-3 #### [facility] CLIA [id number] [address] [place] [address] [place] Triglyceride [Mass/Vol] 138 mg/dL Normal <150 [facility] Comment on above: Order Comment: Speci men Type: BLOOD SPECIMEN Ordering Facility: [facility] Address: [address] [place] [address] Result Comment: <150 mg/dL, Normal 150-199 mg/dL, Borderline high 200-499 mg/dL, High >499 mg/dL, Very high Performed By: #### 2 4323-8, 84610-8, 3024-7, 3016-3 #### [facility] CLIA [id number] [address] [place] [address] [place] T4 Free SerPl-mCncon 025 Free T4 [Mass/Vol] 1.2 ng/dL Normal 0.9-1.7 [facility] Comment on above: Order Comment: Speci men Type: BLOOD SPECIMEN Ordering Facility: [facility] Address: [address] [place] [address] Performed By: #### 2 4323-8, 69553-8, 3024-7, 3016-3 #### [facility] CLIA [id number] [address] [place] [address] [place] TSH SerPl-aCncon 07-18-2024 TSH Qn 3.570 m[IU]/L Normal 0.270-4.200 [facility] Comment on above: Order Comment: Speci men Type: BLOOD SPECIMEN Ordering Facility: [facility] Address: [address] [place] [address] Performed By: #### 2 4323-8, 74595-0, 3024-7, 3016-3 #### [facility] CLIA [id number] [address] [place] [address] [place] Vit B12 SerPl-mCncon 025 Cobalamin (Vitamin B12) [Mass/Vol] 654 pg/mL Normal 232-1245 [facility] Comment on above: Order Comment: Speci men Type: BLOOD SPECIMEN Ordering Facility: [facility] Address: [address] [place] [address] Performed By: #### 2 132-9 #### [facility] CLIA [id number] [address] [place] [address] [place] XR FOOT 3V AP/LAT/OBL BILon 07-18-2024 XR FOOT 3V AP/LAT/OBL PANDA * * *Final Report* * * DATE OF EXAM: Jul 18 2024 2:58PM WOX [id number] - XR FOOT 3V AP/LAT/OBL PANDA / PROCEDURE REASON: multiple diagnoses * * * * Physician Interpretation * * * * PROCEDURE: Bilateral feet INDICATION: Foot pain, bilateral .for a few months in the left foot feels like stepping on a rock plantar side distal 3-4-5th MT with numbness after work, right foot sometimes has pain in medial arch area no inj TECHNIQUE: XR FOOT 3V AP/LAT/OBL PANDA COMPARISON: 12/15/2022 FINDINGS: No fracture or dislocation. Joint spaces are maintained. Minimal 1st MTP joint osteoarthrosis bilaterally. No erosion or focal soft tissue swelling. Tiny bilateral plantar calcaneal spurs. No significant interval change. IMPRESSION: No acute abnormality In House Counsel: PSCB Transcribe Date/Time: Jul 21 2024 4:27P Dictated by : ROXANNE RODRIGES MD This examination was interpreted and the report reviewed and electronically signed by: ROXANNE RODRIGES MD on Jul 21 2024 4:50PM EST [id number] Normal [facility] CNOVon 07-09-2024 CNOV Office Visit (FAMPWS ) RONNIE KATZ ([id number]) 1970 F [place] Date Time Provider Department 07/09/24 7:20 PM [facility] During your visit today, we recorded the following information about you: Pulse Respiration Blood pressure Weight 96/minute 18/minute 110/76 109.6 kg Manisha Garrett MD 07/09/2024 7:35 PM Signed Chief Complaint Patient presents with: Diarrhea Vomiting HPI Ronnie Katz is a 53 year old female who presents here today for a same day visit. Established pt of Dr. Sweeney, new to this office here today for GI symptoms. Pt c/o of diarrhea and vomiting. Went to [place] over the weekend, and reports she felt fine all day Tuesday and Tuesday. Bowels started to get slightly loose on Tuesday evening, but on Tuesday morning she started experiencing diarrhea. They were heading home on Tuesday. She ate grits for breakfast at the hotel, but came right back up when she went to her room. Yesterday had watery diarrhea all day, this has continued today. Nausea slightly better today; ate some applesauce. No blood in stool. Pt at this point has nothing left in her body and states her bowels are just like water. She is dry heaving, but doesn't have anything in her stomach to vomit. Pt missed work today and unsure if she can go in tomorrow. 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 Does report living with a couple, who the woman who lives with her didn't feel well Tuesday, but her symptoms were minor and she has improved. Past medical history, appointments, medications, allergies reviewed. Previous Medical History PAST MEDICAL HISTORY Diagnosis Date Diastasis of rectus abdominis 12/11/2015 Dysthymic disorder Depression (non-psychotic) Environmental allergies Spring worse. Gallstones Genital herpes, unspecified 01/09/2007 HSV (herpes simplex virus) anogenital infection 1990 Hypercholesteremia 05/2015 Leukocytoclastic vasculitis (HCC) 2012 dx by Aliyah Wallace Onychomycosis SHAINA (obstructive sleep apnea) 04/13/2017 Persistent asthma without complication 06/12/2018 + JADA 06/2018, chronic cough, abnormal RAST. Previous Surgical History PAST SURGICAL HISTORY Procedure Laterality Date APPENDECTOMY CARPAL TUNNEL 2017 CARPAL TUNNEL Right 2018 CHOLECYSTECTOMY HX 07/05/2023 LIVER BIOPSY 07/05/2023 NEUROPLASTY AND/TRANSPOS MEDIAN NRV CARPAL TUNNE Right 09/13/2016 THYROID LEFT FINE NEEDLE ASPIRATION 08/02/2007 U/ S FNA left thyroid nodule TOTAL THYROID LOBECTOMY UNI W/WO ISTHMUSECTOMY 08/31/2007 LEFT VAGINAL HYSTERECTOMY UTERUS 250 GM/< 12/01/2009 TVH for fibroid, menorrhagia, adenomyosis Family History FAMILY HISTORY Problem Relation Age of Onset other (FIBROMYALGIA) Mother Lipids Father Ischemic Heart Disease Father Heart Father GA has hole in heart Stroke Father Diabetes Father Stroke Maternal Grandmother Alzheimer's Disease Maternal Grandmother Psychiatry Maternal Grandmother DEMENTIA Breast Cancer Maternal Grandmother Diabetes Other pcousin Heart Sister Hole in heart Thyroid Sister Allergies No Family History Asthma No Family History Patient Allergies ALLERGIES Allergen Reactions Prozac [Fluoxetine * Mental Status Change Aggressive behavior, emotional Current Medications Current Outpatient Medications on File Prior to Visit Medication Sig Calcium-Cholecalcifer ol, D3, 600 mg-10 mcg (400 unit) cap Take 1 capsule by mouth once daily. venlafaxine ER (EFFEXOR XR) 150 mg 24 hr capsule Take 1 capsule by mouth once daily. venlafaxine ER (EFFEXOR XR) 75 mg 24 hr capsule Take 1 capsule by mouth once daily. metFORMIN ER (GLUCOPHAGE XR) 500 mg 24 hr tablet Take 2 tablets by mouth once daily. With dinner. metFORMIN ER (FORTAMET) 1,000 mg 24 hr tablet Take 1 tablet by mouth daily with dinner. Generic okay Phentermine HCl 37.5 mg tablet Take 1 tablet by mouth once daily for 90 days. BMI 42.62 dexAMETHasone 0.1 % ophthalmic solution Instill 1 drop into affected ear canal once daily as needed potassium chloride (K-TAB) 10 mEq tablet Take 1 tablet by mouth daily with breakfast. traZODone (DESYREL) 50 mg tablet Take 1 tablet by mouth daily at bedtime. levothyroxine (SYNTHROID) 75 mcg tablet Take 1 tablet by mouth daily 5 days per week. Take 1.5 tablets by mouth daily 2 days per week. Take in the morning on an empty stomach. pantoprazole DR (PROTONIX) 40 mg tablet Take 1 tablet by mouth once daily. furosemide (LASIX) 40 mg tablet Take 1 tablet by mouth two times a day. metFORMIN ER (FORTAMET) 500 mg 24 hr tablet Take 1 tablet by mouth daily with dinner. Take two tablets by mouth daily with dinner. loratadine (CLARITIN) 10 mg tablet Take 1 tablet by mouth once daily. budesonide-formoterol (SYMBICORT) 80-4.5 mcg/actuation inhaler Inhale 2 Puffs as instructed twice daily. albuterol HFA (PROVENTIL HFA, VENTOLIN HFA) 90 mc (more content not included)... Normal [facility] 05-08-2024 [facility] RONNIE KATZ ([id number]) 1970 F Date Time Provider Department 05/08/24 STANLEY SWEENEY [facility] During your visit today, we recorded the following information about you: Shawna Mason RN 05/08/2024 10:07 AM [facility] for metformin (Glucophage) and not Fortamet. Current prescription will cost thousands of dollars. Pended prescription for 1000 mg but will require taking two 500 mg pills at a time. Please review. TRENT Burris Alyson Taylor, APRN.FLANGING ROLL OPERATOR 05/09/2024 7:29 AM Signed The following approved medication requests have been transmitted electronically. Requested Prescriptions Signed Prescriptions Disp Refills metFORMIN ER (GLUCOPHAGE XR) 500 mg 24 hr tablet 180 tablet 2 Sig: Take 2 tablets by mouth once daily. With dinner. Authorizing Provider: DEISI JULES APRN.FLANGING ROLL OPERATOR Allergies As of Date: 05/08/2024 Noted Allergy Reaction PROZAC (FLUOXETINE HCL) 07/14/2011 1 - Mental Status Change Comments: Aggressive behavior, emotional Date Reviewed: 04/19/2024 Reviewed by: Adia Robles APRN.JENA - Fully Assessed Reason for Visit: Medication Problem [65] Primary Visit Diagnosis:Class 3 severe obesity with body mass index (BMI) of 40.0 to 44.9 in adult, unspecified obesity type, unspecified whether serious comorbidity present ([facility]) [E66.813, E66.01, Z68.41] Other Visit Diagnosis:IFG (impaired fasting glucose) [R73.01] Order(s):metFORMIN ER (GLUCOPHAGE XR) 500 mg 24 hr tabletTake 2 tablets by mouth once daily. With dinner.Disp: 180 tabletRfl: 2 Prescriptions as of 05/09/2024 - metFORMIN ER (GLUCOPHAGE XR) 500 mg 24 hr tablet Take 2 tablets by mouth once daily. With dinner. - metFORMIN ER (FORTAMET) 1,000 mg 24 hr tablet Take 1 tablet by mouth daily with dinner. Generic okay - Phentermine HCl 37.5 mg tablet Take 1 tablet by mouth once daily for 90 days. BMI 42.62 - dexAMETHasone 0.1 % ophthalmic solution Instill 1 drop into affected ear canal once daily as needed - potassium chloride (K-TAB) 10 mEq tablet Take 1 tablet by mouth daily with breakfast. - traZODone (DESYREL) 50 mg tablet Take 1 tablet by mouth daily at bedtime. - levothyroxine (SYNTHROID) 75 mcg tablet Take 1 tablet by mouth daily 5 days per week. Take 1.5 tablets by mouth daily 2 days per week. Take in the morning on an empty stomach. - pantoprazole DR (PROTONIX) 40 mg tablet Take 1 tablet by mouth once daily. - furosemide (LASIX) 40 mg tablet Take 1 tablet by mouth two times a day. - venlafaxine ER (EFFEXOR XR) 150 mg 24 hr capsule Take 1 capsule by mouth once daily. - venlafaxine ER (EFFEXOR XR) 75 mg 24 hr capsule Take 1 capsule by mouth once daily. - metFORMIN ER (FORTAMET) 500 mg 24 hr tablet Take 1 tablet by mouth daily with dinner. Take two tablets by mouth daily with dinner. - loratadine (CLARITIN) 10 mg tablet Take 1 tablet by mouth once daily. - Calcium-Cholecalcifer ol, D3, 600 mg-10 mcg (400 unit) cap Take 1 capsule by mouth once daily. - budesonide-formoterol (SYMBICORT) 80-4.5 mcg/actuation inhaler Inhale 2 Puffs as instructed twice daily. - albuterol HFA (PROVENTIL HFA, VENTOLIN HFA) 90 mcg/actuation inhaler Inhale 2 Puffs as instructed every 4 hours as needed. - cholecalciferol (VITAMIN D3) 50 mcg (2,000 unit) tablet Take 1 tablet by mouth once daily. - CPAP Initiate CPAP @ 10 cm of water with humidification. Mask (per patient preference) optional chin strap (if indicated) , filters, tubing, humidifier and lifetime supplies. - COMPOUNDED PRESCRIPTION CPAP Supplies; hose; mask DX: SHAINA - multivitamins(DAILY VITAMIN TAB) Take one(1) tablet daily. 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 Abdominal pain, lower [R10.30] 09/04/2009 07/14/2011 Menorrhagia [N92.0] 09/04/2009 07/14/2011 Enlarged uterus [N85.2] 10/22/2009 07/14/2011 Pelvic pain 10/22/2009 07/14/2011 Anxiety [F41.9] 07/19/2011 Panic attack [F41.0] 07/19/2011 Diastasis of rectus abdominis [M62.08] 12/11/2015 04/13/2017 Carpal tunnel syndrome, bilateral [G56.03] 07/23/2016 Gastroesophageal reflux disease without esophag*09/10/2016 Medication monitoring encounter [Z51.81] 09/13/2016 04/13/2017 SHAINA (obstructive sleep apnea) [G47.33] 04/13/2017 Mixed hyperlipidemia [E78.2] 04/25/2017 Obesity, Class II, BMI 35-39.9 [E66.812] 04/25/2017 10/30/2020 Diastasis of rectus abdominis [M62.08] 11/01/2017 Vitamin D deficiency [E55.9] 11/01/2017 Elevated fasting glucose [R73.01] 11/01/2017 (more content not included)... Normal [facility] CNOVon 04-19-2024 CNOV Office Visit (FAMPWS ) RONNIE KATZ ([id number]) 1970 F [place] Date Time Provider Department 04/19/24 10:40 AM [facility] During your visit today, we recorded the following information about you: Pulse Respiration Blood pressure Weight 84/minute 16/minute 118/84 111.9 kg Adia Robles APRN.CNP 04/20/2024 2:16 PM Signed Chief Complaint Patient presents with: Medication Follow-up: Restart adipex HPI Ronnie Garciaers is a 53 year old female who presents here today for Above Complaints. Weight-has had a rough last month. Appetite is very high right now. Recently put on some weight r/t the stress and holiday-thinks she put on an extra 10 pounds that she had lost. Has tolerated the Adipex well in the past and would like to restart this. Past medical history, appointments, medications, allergies reviewed. Previous Medical History PAST MEDICAL HISTORY Diagnosis Date Diastasis of rectus abdominis 12/11/2015 Dysthymic disorder Depression (non-psychotic) Environmental allergies Spring worse. Gallstones Genital herpes, unspecified 01/09/2007 HSV (herpes simplex virus) anogenital infection 1990 Hypercholesteremia 05/2015 Leukocytoclastic vasculitis (HCC) 2012 dx by Aliyah Wallace Onychomycosis SHAINA (obstructive sleep apnea) 04/13/2017 Persistent asthma without complication 06/12/2018 + JADA 06/2018, chronic cough, abnormal RAST. Previous Surgical History PAST SURGICAL HISTORY Procedure Laterality Date APPENDECTOMY CARPAL TUNNEL 2017 CARPAL TUNNEL Right 2018 CHOLECYSTECTOMY HX 07/05/2023 LIVER BIOPSY 07/05/2023 NEUROPLASTY AND/TRANSPOS MEDIAN NRV CARPAL TUNNE Right 09/13/2016 THYROID LEFT FINE NEEDLE ASPIRATION 08/02/2007 U/ S FNA left thyroid nodule TOTAL THYROID LOBECTOMY UNI W/WO ISTHMUSECTOMY 08/31/2007 LEFT VAGINAL HYSTERECTOMY UTERUS 250 GM/< 12/01/2009 TVH for fibroid, menorrhagia, adenomyosis Family History FAMILY HISTORY Problem Relation Age of Onset other (FIBROMYALGIA) Mother Lipids Father Ischemic Heart Disease Father Heart Father [place] has hole in heart Stroke Father Diabetes Father Stroke Maternal Grandmother Alzheimer's Disease Maternal Grandmother Psychiatry Maternal Grandmother DEMENTIA Breast Cancer Maternal Grandmother Diabetes Other pcousin Heart Sister Hole in heart Thyroid Sister Allergies No Family History Asthma No Family History Patient Allergies ALLERGIES Allergen Reactions Prozac [Fluoxetine * Mental Status Change Aggressive behavior, emotional Current Medications Current Outpatient Medications on File Prior to Visit Medication Sig potassium chloride (K-TAB) 10 mEq tablet Take 1 tablet by mouth daily with breakfast. traZODone (DESYREL) 50 mg tablet Take 1 tablet by mouth daily at bedtime. levothyroxine (SYNTHROID) 75 mcg tablet Take 1 tablet by mouth daily 5 days per week. Take 1.5 tablets by mouth daily 2 days per week. Take in the morning on an empty stomach. pantoprazole DR (PROTONIX) 40 mg tablet Take 1 tablet by mouth once daily. Phentermine HCl 37.5 mg tablet once daily. furosemide (LASIX) 40 mg tablet Take 1 tablet by mouth two times a day. venlafaxine ER (EFFEXOR XR) 150 mg 24 hr capsule Take 1 capsule by mouth once daily. venlafaxine ER (EFFEXOR XR) 75 mg 24 hr capsule Take 1 capsule by mouth once daily. metFORMIN ER (FORTAMET) 500 mg 24 hr tablet Take 1 tablet by mouth daily with dinner. Take two tablets by mouth daily with dinner. metFORMIN ER (FORTAMET) 1,000 mg 24 hr tablet Take 1 tablet by mouth daily with dinner. Generic okay loratadine (CLARITIN) 10 mg tablet Take 1 tablet by mouth once daily. Calcium-Cholecalcifer ol, D3, 600 mg-10 mcg (400 unit) cap Take 1 capsule by mouth once daily. albuterol HFA (PROVENTIL HFA, VENTOLIN HFA) 90 mcg/actuation inhaler Inhale 2 Puffs as instructed every 4 hours as needed. cholecalciferol (VITAMIN D3) 50 mcg (2,000 unit) tablet Take 1 tablet by mouth once daily. CPAP Initiate CPAP @ 10 cm of water with humidification. Mask (per patient preference) optional chin strap (if indicated) , filters, tubing, humidifier and lifetime supplies. COMPOUNDED PRESCRIPTION CPAP Supplies; hose; mask DX: SHAINA multivitamins(DAILY VITAMIN TAB) Take one(1) tablet daily. oxyCODONE IR (ROXICODONE) 5 mg immediate release tablet TAKE 1 TO 2 TABLETS BY MOUTH EVERY 6 HOURS NEEDED. DO NOT EXCEED 6 TABLETS IN 24 HOURS (Patient not taking: Reported on 04/19/2024) budesonide-formoterol (SYMBICORT) 80-4.5 mcg/actuation inhaler Inhale 2 Puffs as instructed twice daily. No current facility-administered medications on file prior to visit. Social History Social History Tobacco Use Smoking status: Never Smokeless tobacco: Never Tobacco comments: No ETS in childhood or current home. Vaping Use Vaping status: Never Used Substance Use Topics (more content not included)... [facility] Tele[facility] (NICAWS) RONNIE KATZ ([id number]) 1970 F Date Time Provider Department 03/31/24 [facility] During your visit today, we recorded the following information about you: Ronnie Akhtar LPN 03/31/2024 10:48 AM Signed Pt called in to see if there are any labs that need to be done. Please advise pt. Pt also calling to get a follow up apt regarding medication update. 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 DACIA Bray Jordan L, DO 04/02/2024 7:03 AM Signed Patient has appt this week to discuss further DO Hermilo Marks Laurie Lynn, LPN 04/02/2024 7:58 AM Signed Detailed VM left on pt's identified voicemail of information below. Ronnie Akhtar LPN Allergies As of Date: 03/31/2024 Noted Allergy Reaction PROZAC (FLUOXETINE HCL) 07/14/2011 1 - Mental Status Change Comments: Aggressive behavior, emotional Date Reviewed: 03/01/2024 Reviewed by: Seth Gan APRN.FLANGING ROLL OPERATOR - Fully Assessed Reason for Visit: requesting lab orders [Other] Prescriptions as of 04/02/2024 - oxyCODONE IR (ROXICODONE) 5 mg immediate release tablet TAKE 1 TO 2 TABLETS BY MOUTH EVERY 6 HOURS NEEDED. DO NOT EXCEED 6 TABLETS IN 24 HOURS - Phentermine HCl 37.5 mg tablet once daily. - furosemide (LASIX) 40 mg tablet Take 1 tablet by mouth two times a day. - venlafaxine ER (EFFEXOR XR) 150 mg 24 hr capsule Take 1 capsule by mouth once daily. - venlafaxine ER (EFFEXOR XR) 75 mg 24 hr capsule Take 1 capsule by mouth once daily. - metFORMIN ER (FORTAMET) 500 mg 24 hr tablet Take 1 tablet by mouth daily with dinner. Take two tablets by mouth daily with dinner. - levothyroxine (SYNTHROID) 75 mcg tablet Take 1 tablet by mouth daily 5 days per week. Take 1.5 tablets by mouth daily 2 days per week. Take in the morning on an empty stomach. - metFORMIN ER (FORTAMET) 1,000 mg 24 hr tablet Take 1 tablet by mouth daily with dinner. Generic okay - potassium chloride (K-TAB) 10 mEq tablet Take 1 tablet by mouth daily with breakfast. - pantoprazole DR (PROTONIX) 40 mg tablet Take 1 tablet by mouth once daily. - loratadine (CLARITIN) 10 mg tablet Take 1 tablet by mouth once daily. - traZODone (DESYREL) 50 mg tablet Take 1 tablet by mouth daily at bedtime. - Calcium-Cholecalcifer ol, D3, 600 mg-10 mcg (400 unit) cap Take 1 capsule by mouth once daily. - budesonide-formoterol (SYMBICORT) 80-4.5 mcg/actuation inhaler Inhale 2 Puffs as instructed twice daily. - albuterol HFA (PROVENTIL HFA, VENTOLIN HFA) 90 mcg/actuation inhaler Inhale 2 Puffs as instructed every 4 hours as needed. - cholecalciferol (VITAMIN D3) 50 mcg (2,000 unit) tablet Take 1 tablet by mouth once daily. - CPAP Initiate CPAP @ 10 cm of water with humidification. Mask (per patient preference) optional chin strap (if indicated) , filters, tubing, humidifier and lifetime supplies. - COMPOUNDED PRESCRIPTION CPAP Supplies; hose; mask DX: SHAINA - multivitamins(DAILY VITAMIN TAB) Take one(1) tablet daily. 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/2007 Abdominal pain, lower [R10.30] 09/04/2009 07/14/2011 Menorrhagia [N92.0] 09/04/2009 07/14/2011 Enlarged uterus [N85.2] 10/22/2009 07/14/2011 Pelvic pain 10/22/2009 07/14/2011 Anxiety [F41.9] 07/19/2011 Panic attack [F41.0] 07/19/2011 Diastasis of rectus abdominis [M62.08] 12/11/2015 04/13/2017 Carpal tunnel syndrome, bilateral [G56.03] 07/23/2016 Gastroesophageal reflux disease without esophag*09/10/2016 Medication monitoring encounter [Z51.81] 09/13/2016 04/13/2017 SHAINA (obstructive sleep apnea) [G47.33] 04/13/2017 Mixed hyperlipidemia [E78.2] 04/25/2017 Obesity, Class II, BMI 35-39.9 [E66.812] 04/25/2017 10/30/2020 Diastasis of rectus abdominis [M62.08] 11/01/2017 Vitamin D deficiency [E55.9] 11/01/2017 Elevated fasting glucose [R73.01] 11/01/2017 Plantar fasciitis [M72.2] 11/01/2017 Belching [R14.2] 11/01/2017 Rhus dermatitis [L25.5] 11/01/2017 Mild intermittent asthma, uncomplicated [J45.20]05/19/2018 Environmental allergies [Z91.09] Persistent asthma without complication [J45.909]06/12/2018 Fatty liver [K76.0] 12/31/2019 HSV (herpes simplex virus) anogenital infection*1990 Class 3 severe obesity with body mass index (BM*10/01/2020 Leukocytoclastic vasculitis (HCC) [M31.0] 10/29/2020 Malaise and fatigue [R53.81, R53.83] 10/30/2020 Positive KRISTINE (antinuclear antibody) [R76.8] 10/30/2020 Acute pain of right knee [M25.561] 10/30/2020 Myalgia [M79.10] 10/30/2020 Severe episode of recurrent major depressive di*10/30/2020 A (more content not included)... Normal [facility] CNOVon 03-01-2024 CNOV Office Visit (UCWSTR ) RONNIE KATZ ([id number]) 1970 F [place] Date Time Provider Department 03/01/24 2[facility]15 PM [facility] During your visit today, we recorded the following information about you: Temperature Pulse Respiration Blood pressure 98.6 degrees 93/minute 20/minute 106/75 Weight 108.3 kg Elvia Seth, AYLIN.FLANGING ROLL OPERATOR 03/01/2024 3:35 PM Signed Subjective HPI Nontoxic-appearing female presents urgent care chief complaint cough chest congestion sore throat headache fatigue body aches chills loose stools. Duration of symptoms 5 days. Associate symptoms listed above. Most prominent symptom today is the fatigue and cough. Significant other sick similar signs symptoms. OTC medications none recently. Denies any chest pain shortness of breath or hemoptysis. Past medical history prescription medications allergies reviewed. BP 106/75 Pulse 93 Temp 37 ?C (98.6 ?F) Resp 20 Wt 108.3 kg (238 lb 12.1 oz) LMP 11/16/2009 SpO2 96% BMI 41.27 kg/m? .Patient presents with: Cough: Chest congestion, ST x5 days PAST MEDICAL HISTORY Diagnosis Date Diastasis of rectus abdominis 12/11/2015 Dysthymic disorder Depression (non-psychotic) Environmental allergies spring. Gallstones Genital herpes, unspecified 01/09/2007 HSV (herpes simplex virus) anogenital infection 1990 Hypercholesteremia 05/2015 Leukocytoclastic vasculitis (HCC) 2012 dx by Aliyah Wallace Onychomycrey SHAINA (obstructive sleep apnea) 04/13/2017 Persistent asthma without complication 06/12/2018 + JADA 06/2018, chronic cough, abnormal RAST. PAST SURGICAL HISTORY Procedure Laterality Date APPENDECTOMY CARPAL TUNNEL 2017 CARPAL TUNNEL Right 2018 CHOLECYSTECTOMY HX 07/05/2023 LIVER BIOPSY 07/05/2023 NEUROPLASTY AND/TRANSPOS MEDIAN NRV CARPAL TUNNE Right 09/13/2016 THYROID LEFT FINE NEEDLE ASPIRATION 08/02/2007 U/ S FNA left thyroid nodule TOTAL THYROID LOBECTOMY UNI W/WO ISTHMUSECTOMY 08/31/2007 LEFT VAGINAL HYSTERECTOMY UTERUS 250 GM/< 12/01/2009 TVH for fibroid, menorrhagia, adenomyosis ALLERGIES Prozac [Fluoxetine Hcl] MEDICATIONS oxyCODONE IR (ROXICODONE) 5 mg immediate release tablet TAKE 1 TO 2 TABLETS BY MOUTH EVERY 6 HOURS NEEDED. DO NOT EXCEED 6 TABLETS IN 24 HOURS Phentermine HCl 37.5 mg tablet once daily. furosemide (LASIX) 40 mg tablet Take 1 tablet by mouth two times a day. venlafaxine ER (EFFEXOR XR) 150 mg 24 hr capsule Take 1 capsule by mouth once daily. venlafaxine ER (EFFEXOR XR) 75 mg 24 hr capsule Take 1 capsule by mouth once daily. metFORMIN ER (FORTAMET) 500 mg 24 hr tablet Take 1 tablet by mouth daily with dinner. Take two tablets by mouth daily with dinner. levothyroxine (SYNTHROID) 75 mcg tablet Take 1 tablet by mouth daily 5 days per week. Take 1.5 tablets by mouth daily 2 days per week. Take in the morning on an empty stomach. metFORMIN ER (FORTAMET) 1,000 mg 24 hr tablet Take 1 tablet by mouth daily with dinner. Generic okay potassium chloride (K-TAB) 10 mEq tablet Take 1 tablet by mouth daily with breakfast. pantoprazole DR (PROTONIX) 40 mg tablet Take 1 tablet by mouth once daily. loratadine (CLARITIN) 10 mg tablet Take 1 tablet by mouth once daily. traZODone (DESYREL) 50 mg tablet Take 1 tablet by mouth daily at bedtime. Calcium-Cholecalcifer ol, D3, 600 mg-10 mcg (400 unit) cap Take 1 capsule by mouth once daily. budesonide-formoterol (SYMBICORT) 80-4.5 mcg/actuation inhaler Inhale 2 Puffs as instructed twice daily. albuterol HFA (PROVENTIL HFA, VENTOLIN HFA) 90 mcg/actuation inhaler Inhale 2 Puffs as instructed every 4 hours as needed. cholecalciferol (VITAMIN D3) 50 mcg (2,000 unit) tablet Take 1 tablet by mouth once daily. CPAP Initiate CPAP @ 10 cm of water with humidification. Mask (per patient preference) optional chin strap (if indicated) , filters, tubing, humidifier and lifetime supplies. COMPOUNDED PRESCRIPTION CPAP Supplies; hose; mask DX: SHAINA multivitamins(DAILY VITAMIN TAB) Take one(1) tablet daily. FAMILY HISTORY Problem Relation Age of Onset other (FIBROMYALGIA) Mother Lipids Father Ischemic Heart Disease Father Heart Father [place] has hole in heart Stroke Father Diabetes Father Stroke Maternal Grandmother Alzheimer's Disease Maternal Grandmother Psychiatry Maternal Grandmother DEMENTIA Breast Cancer Maternal Grandmother Diabetes Other pcousin Heart Sister Hole in heart Thyroid Sister Allergies No Family History Asthma No Family History Social History Tobacco Use Smoking status: Never Smokeless tobacco: Never Tobacco comments: No ETS in childhood or current home. Vaping Use Vaping status: Never Used Substance Use Topics Alcohol use: No Drug use: No Review of Systems Constitutional: Positive for chills, fever and malaise/fatigue. HENT: Positive for congestion and sore (more content not included)... Normal [facility] CNPNon 03-01-2024 CNPN Telephone (UCWSTR) RONNIE KATZ ([id number]) 1970 F Date Time Provider Department 03/01/24 [facility] During your visit today, we recorded the following information about you: Seth Gan APRN.CNP 03/01/2024 3:35 PM Signed Please inform patient that x-ray is negative. Cough suppressant sent to pharmacy. Seth Gan APRN.Jessie Monroe MA 03/02/2024 7:29 AM Signed Left VM instructing patient to return call to receive results. MONA Crawford Sherrie, RN 03/02/2024 9:48 AM Signed Patient returned call and given provider's message below and patient verbalized understanding. Zino Tarango RN Allergies As of Date: 03/01/2024 Noted Allergy Reaction PROZAC (FLUOXETINE HCL) 07/14/2011 1 - Mental Status Change Comments: Aggressive behavior, emotional Date Reviewed: 03/01/2024 Reviewed by: Seth Gan APRN.CNP - Fully Assessed Reason for Visit: Results [95] Prescriptions as of 03/02/2024 - oxyCODONE IR (ROXICODONE) 5 mg immediate release tablet TAKE 1 TO 2 TABLETS BY MOUTH EVERY 6 HOURS NEEDED. DO NOT EXCEED 6 TABLETS IN 24 HOURS - Phentermine HCl 37.5 mg tablet once daily. - benzonatate (TESSALON PERLE) 100 mg capsule Take 1 capsule by mouth three times a day as needed for cough for up to 7 days. - furosemide (LASIX) 40 mg tablet Take 1 tablet by mouth two times a day. - venlafaxine ER (EFFEXOR XR) 150 mg 24 hr capsule Take 1 capsule by mouth once daily. - venlafaxine ER (EFFEXOR XR) 75 mg 24 hr capsule Take 1 capsule by mouth once daily. - metFORMIN ER (FORTAMET) 500 mg 24 hr tablet Take 1 tablet by mouth daily with dinner. Take two tablets by mouth daily with dinner. - levothyroxine (SYNTHROID) 75 mcg tablet Take 1 tablet by mouth daily 5 days per week. Take 1.5 tablets by mouth daily 2 days per week. Take in the morning on an empty stomach. - metFORMIN ER (FORTAMET) 1,000 mg 24 hr tablet Take 1 tablet by mouth daily with dinner. Generic okay - potassium chloride (K-TAB) 10 mEq tablet Take 1 tablet by mouth daily with breakfast. - pantoprazole DR (PROTONIX) 40 mg tablet Take 1 tablet by mouth once daily. - loratadine (CLARITIN) 10 mg tablet Take 1 tablet by mouth once daily. - traZODone (DESYREL) 50 mg tablet Take 1 tablet by mouth daily at bedtime. - Calcium-Cholecalcifer ol, D3, 600 mg-10 mcg (400 unit) cap Take 1 capsule by mouth once daily. - budesonide-formoterol (SYMBICORT) 80-4.5 mcg/actuation inhaler Inhale 2 Puffs as instructed twice daily. - albuterol HFA (PROVENTIL HFA, VENTOLIN HFA) 90 mcg/actuation inhaler Inhale 2 Puffs as instructed every 4 hours as needed. - cholecalciferol (VITAMIN D3) 50 mcg (2,000 unit) tablet Take 1 tablet by mouth once daily. - CPAP Initiate CPAP @ 10 cm of water with humidification. Mask (per patient preference) optional chin strap (if indicated) , filters, tubing, humidifier and lifetime supplies. - COMPOUNDED PRESCRIPTION CPAP Supplies; hose; mask DX: SHAINA - multivitamins(DAILY VITAMIN TAB) Take one(1) tablet daily. 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 Abdominal pain, lower [R10.30] 09/04/2009 07/14/2011 Menorrhagia [N92.0] 09/04/2009 07/14/2011 Enlarged uterus [N85.2] 10/22/2009 07/14/2011 Pelvic pain 10/22/2009 07/14/2011 Anxiety [F41.9] 07/19/2011 Panic attack [F41.0] 07/19/2011 Diastasis of rectus abdominis [M62.08] 12/11/2015 04/13/2017 Carpal tunnel syndrome, bilateral [G56.03] 07/23/2016 Gastroesophageal reflux disease without esophag*09/10/2016 Medication monitoring encounter [Z51.81] 09/13/2016 04/13/2017 SHAINA (obstructive sleep apnea) [G47.33] 04/13/2017 Mixed hyperlipidemia [E78.2] 04/25/2017 Obesity, Class II, BMI 35-39.9 [E66.812] 04/25/2017 10/30/2020 Diastasis of rectus abdominis [M62.08] 11/01/2017 Vitamin D deficiency [E55.9] 11/01/2017 Elevated fasting glucose [R73.01] 11/01/2017 Plantar fasciitis [M72.2] 11/01/2017 Belching [R14.2] 11/01/2017 Rhus dermatitis [L25.5] 11/01/2017 Mild intermittent asthma, uncomplicated [J45.20]05/19/2018 Environmental allergies [Z91.09] Persistent asthma without complication [J45.909]06/12/2018 Fatty liver [K76.0] 12/31/2019 HSV (herpes simplex virus) anogenital infection*1991 Class 3 severe obesity with body mass index (BM*10/01/2020 Leukocytoclastic vasculitis (HCC) [M31.0] 10/29/2020 Malaise and fatigue [R53.81, R53.83] 10/30/2020 Positive KRISTINE (antinuclear antibody) [R76.8] 10/30/2020 Acute pain of right knee [M25.561] 10/30/2020 Myalgia [M79.10] 10/30/2020 Severe epi (more content not included)... Normal [facility] POTASSIUMon 03-01-2024 Potassium [Moles/Vol] 4.2 mmol/L Normal 3.7-5.1 [facility] Comment on above: Order Comment: Speci men Type: BLOOD SPECIMEN Ordering Facility: [facility] Address: [address] [place] [address] Performed By: #### 2 4323-8, 85198-6, 3024-7, 3016-3 #### [facility] CLIA [id number] [address] [place] [address] [place] XR CHEST 2V FRONTAL/LATon XR CHEST 2V FRONTAL/LAT * * *Final Report* * * DATE OF EXAM: Mar 01 2024 3:21PM WOX [id number] - XR CHEST 2V FRONTAL/LAT / PROCEDURE REASON: Acute cough * * * * Physician Interpretation * * * * EXAMINATION: CHEST RADIOGRAPH (2 VIEW FRONTAL and LATERAL) CLINICAL HISTORY: Acute cough MQ: [id number] EXAM DATE/TIME: 03/01/2024 3:21 PM COMPARISON: Chest x-ray 12/20/2022 RESULT: Lines, tubes, and devices: None. Lungs and pleura: No consolidation. No lung mass. No pleural effusion. No pneumothorax. Cardiomediastinal silhouette: Normal cardiomediastinal silhouette. Bones and soft tissues: Unremarkable. IMPRESSION: No acute radiographic abnormality. In House Counsel: PSCB Transcribe Date/Time: Mar 01 2024 3:27P Dictated by : ERIK REZA MD This examination was interpreted and the report reviewed and electronically signed by: ERIK REZA MD on Mar 01 2024 3:28PM EST [id number] Normal [facility] XR Chest PA and Lateralon 11 -21-2024 IMPRESSION: No acute radiographic abnormality. In House Counsel: GABBY Transcribe Date/Time: Mar 01 2024 3:27P Dictated by : ERIK REZA MD This examination was interpreted and the report reviewed and electronically signed by: ERIK REZA MD on Mar 01 2024 3:28PM [facility] OF RADIOLOGY * * *Final Report* * * DATE OF EXAM: Mar 01 2024 3:21PM WOX [id number] - XR CHEST 2V FRONTAL/LAT / PROCEDURE REASON: Acute cough * * * * Physician Interpretation * * * * EXAMINATION: CHEST RADIOGRAPH (2 VIEW FRONTAL & LATERAL) CLINICAL HISTORY: Acute cough MQ: XC2_6 EXAM DATE/TIME: 03/01/2024 3:21 PM COMPARISON: Chest x-ray 12/20/2022 RESULT: Lines, tubes, and devices: None. Lungs and pleura: No consolidation. No lung mass. No pleural effusion. No pneumothorax. Cardiomediastinal silhouette: Normal cardiomediastinal silhouette. Bones and soft tissues: Unremarkable. DIVISION OF RADIOLOGY Provider, [facility] - 03/01/2024 * * *Final Report* * * DATE OF EXAM: Mar 01 2024 3:21PM WOX 5291 - XR CHEST 2V FRONTAL/LAT / PROCEDURE REASON: Acute cough * * * * Physician Interpretation * * * * EXAMINATION: CHEST RADIOGRAPH (2 VIEW FRONTAL & LATERAL) CLINICAL HISTORY: Acute cough MQ: XC2_6 EXAM DATE/TIME: 03/01/2024 3:21 PM COMPARISON: Chest x-ray 12/20/2022 RESULT: Lines, tubes, and devices: None. Lungs and pleura: No consolidation. No lung mass. No pleural effusion. No pneumothorax. Cardiomediastinal silhouette: Normal cardiomediastinal silhouette. Bones and soft tissues: Unremarkable. IMPRESSION IMPRESSION: No acute radiographic abnormality. In House Counsel: GABBY Transcribe Date/Time: Mar 01 2024 3:27P Dictated by : ERIK REZA MD This examination was interpreted and the report reviewed and electronically signed by: ERIK REZA MD on Mar 01 2024 3:28PM [facility] Radiology Study observation (narrative) [facility] XR Chest PA and LateralOrder ed By: [facility] Provider on 03-01-2024 [facility] 12 Lead EKGon 02-21-2024 12 Lead EKG [facility] Cardiovascular Services [address] [place] [address] 12 Lead EKG 02/21/24 1215 MR#: [id number] Acct: [id number] Name: RONNIE KATZ Rep #: [id number] : 1970 53 From: Waldemar Turpin MD Attending Dr: TYREL Barahona Status: REG CL I Ordering Dr: Cynthia Vincent Date: 02/21/24 Location[facility] Sex: F C Admitted: Test Reason : PREOP Blood Pressure : */* mmHG Vent. Rate : 87 BPM Atrial Rate : 87 BPM P-R Int : 142 ms QRS Dur : 74 ms QT Int : 366 ms P-R-T Axes : 86 -7 17 degrees QTcB Int : 440 ms Normal sinus rhythm Possible Inferior infarct , age undetermined Abnormal ECG Confirmed by WALDEMAR TURPIN MD ([id number]), story editor JAIME JURADO ([id number]) on 02/22/2024 8:44:02 AM Referred By: Cynthia Vincent Confirmed By: WALDEMAR TURPIN MD 02/22/24 0844 Date Waldemar Turpin MD CC: TYREL Barahona; Dr. Stanley Sweeney, Signed Normal [facility] Basic Metabolic Profile (BMP )on 02-21-2024 BUN/CRE 15.3 RATIO Normal 10-20 [facility] Comment on above: Performed By: #### L 501.9985, L500.2500, L100.0500 #### [facility] Laboratory [address] [place], [address] CA,Total 9.4 mg/dL Normal 8.5-10.1 [facility] Comment on above: Performed By: #### L 501.9985, L500.2500, L100.0500 #### [facility] Laboratory [address] [place], [address] Chloride [Moles/Vol] 104 mmol/L Normal 98-107 [facility] Comment on above: Performed By: #### L 501.9985, L500.2500, L100.0500 #### [facility] [address] [place], [address] CO2 [Moles/Vol] 28.0 mmol/L Normal 21.0-32.0 [facility] Comment on above: Performed By: #### L 501.9985, L500.2500, L100.0500 #### [facility] [address] [place], [address] Creatinine [Mass/Vol] 0.85 mg/dL Normal 0.55-1.02 [facility] Comment on above: Result Comment: The validity of the calculated GFR GFRAA in patients over 70 years has not been determined. Clinical correlation is essential. Performed By: #### L 501.9985, L500.2500, L100.0500 #### [facility] [address] [place], [address] EST GFR - AA 90 mL/min Normal >60 [facility] Comment on above: Result Comment: Afri can [place] GFR Calc Performed By: #### L 501.9985, L500.2500, L100.0500 #### [facility] [address] [place], [address] GAP 8 Normal 5-15 [facility] Comment on above: Performed By: #### L 501.9985, L500.2500, L100.0500 #### [facility] [address] [place], [address] GFR/1.73 sq M.predicted among non-blacks MDRD (S/P/Bld) [Vol rate/Area] 75 mL/min/{1.73_m2} Normal >60 [facility] Comment on above: Result Comment: Non- GFR Calc Performed By: #### L 501.9985, L500.2500, L100.0500 #### [facility] [address] [place], [address] Glucose [Mass/Vol] 71 mg/dL Low 74-106 [facility] Comment on above: Performed By: #### L 501.9985, L500.2500, L100.0500 #### [facility] [address] [place], [address] Potassium [Moles/Vol] 3.1 mmol/L Low 3.5-5.1 [facility] Comment on above: Performed By: #### L 501.9985, L500.2500, L100.0500 #### [facility] [address] [place], [address] Sodium [Moles/Vol] 140 mmol/L Normal 136-145 [facility] Comment on above: Performed By: #### L 501.9985, L500.2500, L100.0500 #### [facility] [address] [place], [address] Urea nitrogen [Mass/Vol] 13 mg/dL Normal 7-18 [facility] Comment on above: Performed By: #### L 501.9985, L500.2500, L100.0500 #### [facility] [address] [place], [address] CBC-Complete Blood Cnt No Di ffon 02-21-2024 Erythrocyte distribution width (RBC) [Ratio] 12.7 % Normal 11.6-14.6 [facility] Comment on above: Performed By: #### L 501.9985, L500.2500, L100.0500 #### [facility] [address] [place], [address] Hematocrit (Bld) [Volume fraction] 40.9 % Normal 37-47 [facility] Comment on above: Performed By: #### L 501.9985, L500.2500, L100.0500 #### [facility] [address] [place], [address] Hemoglobin (Bld) [Mass/Vol] 13.7 g/dL Normal 12.0-15.0 [facility] Comment on above: Performed By: #### L 501.9985, L500.2500, L100.0500 #### [facility] [address] [place], [address] MCH (RBC) [Entitic mass] 29.8 pg Normal 27.0-32.0 [facility] Comment on above: Performed By: #### L 501.9985, L500.2500, L100.0500 #### [facility] [address] [place], [address] MCHC (RBC) [Mass/Vol] 33.5 g/dL Normal 32-36 [facility] Comment on above: Performed By: #### L 501.9985, L500.2500, L100.0500 #### [facility] [address] [place], [address] MCV (RBC) [Entitic vol] 89.1 fL Normal 81-99 [facility] Comment on above: Performed By: #### L 501.9985, L500.2500, L100.0500 #### [facility] [address] [place], [address] Platelet mean volume (Bld) [Entitic vol] 8.5 fL Normal 6.2-12.0 [facility] Comment on above: Performed By: #### L 501.9985, L500.2500, L100.0500 #### [facility] [address] [place], [address] Platelets (Bld) [#/Vol] 290 10*3/uL Normal 150-450 [facility] Comment on above: Performed By: #### L 501.9985, L500.2500, L100.0500 #### [facility] [address] [place], [address] RBC (Bld) [#/Vol] 4.59 10*6/uL Normal 4.2-5.4 [facility] Comment on above: Performed By: #### L 501.9985, L500.2500, L100.0500 #### [facility] [address] [place], [address] RDW SD 40.9 fl Normal 35.1-43.9 [facility] Comment on above: Performed By: #### L 501.9985, L500.2500, L100.0500 #### [facility] [address] [place], [address] WBC (Bld) [#/Vol] 7.7 10*3/uL Normal 4.4-11.0 [facility] Comment on above: Performed By: #### L 501.9985, L500.2500, L100.0500 #### [facility] [address] [place], [address] Hemoglobin A1con 02-21-2024 HbA1c (Bld) [Mass fraction] 5.2 % Normal 3.8-5.6 [facility] Comment on above: Result Comment: Norm al < 5.7 % Prediabetic 5.7 - 6.4 % Diabetic >or= 6.5 % Please note range changes. Performed By: #### L 501.9985, L500.2500, L100.0500 #### [facility] [address] [place], [address] Emergency Department Summary on 01-10-2024 Emergency Department Summary [facility] Medical Records Department [address] [place] [address] Emergency Department Summary 01/10/24 MR#: [id number] Acct: [id number] Name: RONNIE KATZ Rep #: [id number] : 1970 53 From: Gary Mojica MD PCP: Dr. Stanley Sweeney, DO Status:PRE ER Location: ED HPI History of Present Illness Chief Complaint: Laceration Detail of Chief Complaint: Laceration volar surface left long finger Informant: patient Onset/Context/Timing Onset: Hours Mechanism/Context: Blunt Injury and Incised Location of pain/injuries: - (Volar distal surface left long finger) Quality of Pain: - (Not applicable) Current Severity: Gone Worsened by: Nothing Relieved by: Not applicable Associated Symptoms Associated Symptoms: Negative for Parasthesias, Weakness, Loss of function, Inability to ambulate, Loss of consciousness or Amnesia Narrative Narrative: Patient is a 53-year-old [id number] woman. She has history of hypothyroidism, peptic ulcer disease and depression. Patient was sent in from work because the laceration on the left finger would not stop bleeding. Tetanus is unknown. She denies paresthesia, anesthesia or motor weakness. She has no other complaints. Tetanus Immunization: Unknown Prior similar symptoms: Yes Recent Illness/Hospitalizati on: No PFSH [facility] Medical History (Updated 01/10/24 @ 10:[address] Gary Mojica MD) Carpal tunnel syndrome of left wrist Vitamin D deficiency Vision problems Frequent headaches Carpal tunnel syndrome GERD (gastroesophageal reflux disease) Anemia SHAINA (obstructive sleep apnea) ( 04/2017) Onychomycosis Hypercholesteremia ( 05/2015) HSV (herpes simplex virus) anogenital infection Genital herpes in women ( 01/2007) Depression Dysthymic disorder Diastasis of rectus abdominis ( 12/2015) Home Medications ???Medication ???Instructions ???Recorded ???Last Taken ???Type calcium 500 mg (as 1 ea PO DAILY 11/03/15 Unknown History carbonate)-vitamin D3 5 mcg (200 unit) tablet levothyroxine 75 mcg tablet 75 mcg PO DAILY 11/03/15 03/09/18 07:00 History 75 MCG multivitamin 1 ea PO DAILY 11/03/15 Unknown History trazodone 50 mg tablet 50 mg PO QHS 11/03/15 Unknown History venlafaxine 150 mg 225 mg PO DAILY 11/03/15 Unknown History capsule,extended release 24 hr furosemide 40 mg tablet 40 mg PO BID 01/10/24 Unknown History loratadine 10 mg tablet 10 mg PO DAILY 01/10/24 Unknown History metformin 500 mg tablet,extended 1,000 mg PO QPM 01/10/24 Unknown History release 24 hr pantoprazole 40 mg tablet,delayed 40 mg PO DAILY 01/10/24 Unknown History release phentermine 37.5 mg tablet 37.5 mg PO DAILY 01/10/24 Unknown History potassium chloride 10 mEq 10 meq PO DAILY 01/10/24 Unknown History tablet,extended release Allergy/AdvReac Type Severity Reaction Status Date / Time fluoxetine HCl (From Prozac) AdvReac Other Verified 01/10/24 10:27 Family History Mother Anesthesia complication High cholesterol Thyroid disorder Father Anxiety Depression Diabetes High cholesterol CVA (cerebral vascular accident) Sister Thyroid disorder Grandmother Breast cancer Cancer Grandfather Cancer Surgical History History of vaginal hysterectomy ( 11/2009) History of thyroid surgery ( 08/2007) History of thyroid nodule ( 07/2007) History of carpal tunnel surgery of right wrist ( 09/2016) History of appendectomy Social History household members: spouse number of children: 3 current occupational status: unemployed Smoking Status: Never smoker alcohol intake: never substance use type: does not use additional social history: CONTROL/PROTECTION: HAD VASECTOMY AND SHE HAS HAD A HYSTERECTOMY ROS [facility] ED Musculoskeletal Musculoskeletal: Denies arthralgias or myalgias Integumentary Reports other Details: Laceration volar distal surface of the left long finger Hematologic/Lymphatic Hematologic/Lymphatic : Denies easy bleeding or easy bruising EXAM Physical Exam Const Vital Signs: 01/10/24 10:26 Temperature 98.1 F Temperature Source Temporal Pulse Rate 92 Respiratory Rate 14 Blood Pressure 126/71 H Blood Pressure Mean 89 Pulse Ox 96 Oxygen Delivery Method Room Air Positive well nourished and well developed General Appearance ED: well developed and NAD HEENT atraumatic; Negative for tenderness Eyes PERRL and EOMs intact bilaterally Resp normal respiratory effort Cardio regular rhythm Rate: regular rate Extremity full ROM; Negative for normal to inspection Extremity Narrative: Median, radial and ulnar nerve function intact. Flexor and extens (more content not included)... Normal [facility] HbA1c (Bld)on 01-10-2024 Average glucose Estimated from glycated hemoglobin (Bld) [Mass/Vol] 94 mg/dL [facility] Comment on above: eAG: (Estimated aver age glucose) is a calculated value from HgbA1c and is arborist representative of the average blood glucose level in the last 2-3 month period. HbA1c (Bld) [Mass fraction] 4.9 % 4.3 - 5.6 % [facility] Comment on above: [place] Diabetes As sociation guidelines indicate that patients with HgbA1c in the range 5.7-6.4% are at increased risk for development of diabetes, and intervention by lifestyle modification may be beneficial. HgbA1c greater or equal to 6.5% is considered diagnostic of diabetes. [facility] Lipid 1996 panelon 4 Cholesterol [Mass/Vol] 196 mg/dL NINF - 200 mg/dL [facility] Comment on above: <200 mg/dL, Desirabl e 200-239 mg/dL, Borderline high >239 mg/dL, High Cholesterol in HDL [Mass/Vol] 54 mg/dL 39 - PINF mg/dL [facility] Comment on above: 40-59 mg/dL, Accepta ble >59 mg/dL, High: Negative risk factor for coronary heart disease <40 mg/dL, Low: Positive risk factor for coronary heart disease Cholesterol in LDL [Mass/Vol] 117 mg/dL High NINF - 100 mg/dL [facility] Comment on above: <100 mg/dL, Optimal 100-129 mg/dL, Near optimal/above optimal 130-159 mg/dL, Borderline high 160-189 mg/dL, High >189 mg/dL, Very high Secondary prevention optimal LDL Cholesterol levels are recommended to be < 70 mg/dL Cholesterol in LDL/Cholesterol in HDL [Mass ratio] 2.17 {ratio} NINF - 2.54 [facility] Comment on above: Reference: 1. National Cholesterol Education Program ATP III Guideline At-A-Glance Quick Desk Reference: National Heart, Lung, and Blood [place]. National Institutes of Health. 2001: NIH Publication No. 01-3305. 2. An International Atherosclerosis Society position paper: global recommendations for the management of dyslipidemia: executive summary, Atherosclerosis. 2014: 232(2):410-413. Cholesterol in VLDL [Mass/Vol] 25 mg/dL NINF - 30 mg/dL [facility] Cholesterol non HDL [Mass/Vol] 142 mg/dL High NINF - 130 mg/dL [facility] Comment on above: <130 mg/dL, Optimal 130-159 mg/dL, Near optimal/above optimal 160-189 mg/dL, Borderline high 190-219 mg/dL, High >219 mg/dL, Very high Secondary prevention optimal non HDL Cholesterol levels are recommended to be <100 mg/dL Cholesterol.total/Chol esterol in HDL [Mass ratio] 3.63 {ratio} NINF - 5.10 [facility] Fasting Time [address] [facility] Interpretation and review of laboratory results Abnormal [facility] Triglyceride [Mass/Vol] 123 mg/dL NINF - 150 mg/dL [facility] Comment on above: <150 mg/dL, Normal 150-199 mg/dL, Borderline high 200-499 mg/dL, High >499 mg/dL, Very high [facility] No Panel Informationon 01-09 IMPRESSION: Visualization is somewhat limited due to overlying bowel gas and patient build Fatty infiltration of the liver Otherwise normal sonographic appearance of the right upper quadrant. Normal sonographic appearance of the spleen In House Counsel: PSCLeanna Transcribe Date/Time: Jan 10 2024 8:32A Dictated by : JUAREZ PARKINSON MD This examination was interpreted and the report reviewed and electronically signed by: JUAREZ PARKINSON MD on Jan 10 2024 8:34AM [facility] DIVISION OF RADIOLOGY Interpretation and review of laboratory results Normal [facility] No Panel InformationOrdered By: [facility] Provider on 01-10-2024 [facility] T4 FREE/FREE THYROXINEon Free T4 [Mass/Vol] 1.0 ng/dL 0.9 - 1.7 ng/dL [facility] THYROID STIMULATING HORMONEo n 01-10-2024 TSH Qn 3.280 m[IU]/L [facility] ABD SPLEEN - NBon 024 * * *Final Report* * * DATE OF EXAM: Jan 09 2024 3:02PM [facility] 1232 - US ABD SPLEEN -NB / PROCEDURE REASON: multiple diagnoses * * * * Physician Interpretation * * * * EXAMINATION: RIGHT UPPER QUADRANT ULTRASOUND CLINICAL HISTORY: Right upper quadrant pain TECHNIQUE: Sonography of the right upper quadrant was performed. Images were obtained and stored in a permanent archive. MQ: URUQ_2 COMPARISON: 06/28/2023. RESULT: Pancreas: Normal sonographic appearance. Portions obscured: tail Liver: Echotexture: Normal, homogeneous. Echogenicity: Diffusely increased echogenicity and increased attenuation of sound is consistent with fatty infiltration. Surface contour: Smooth Lesions: None. Biliary: No intrahepatic biliary duct dilation. CBD: 0.4 cm at the hilum. Gallbladder: Prior cholecystectomy Right and left Kidney: No hydronephrosis. Ascites: None. The spleen is 11.7 cm in length DIVISION OF RADIOLOGY Provider, [facility] - 01/10/2024 * * *Final Report* * * DATE OF EXAM: Jan 09 2024 3:02PM [facility] 1232 - US ABD SPLEEN -NB / PROCEDURE REASON: multiple diagnoses * * * * Physician Interpretation * * * * EXAMINATION: RIGHT UPPER QUADRANT ULTRASOUND CLINICAL HISTORY: Right upper quadrant pain TECHNIQUE: Sonography of the right upper quadrant was performed. Images were obtained and stored in a permanent archive. MQ: URUQ_2 COMPARISON: 06/28/2023. RESULT: Pancreas: Normal sonographic appearance. Portions obscured: tail Liver: Echotexture: Normal, homogeneous. Echogenicity: Diffusely increased echogenicity and increased attenuation of sound is consistent with fatty infiltration. Surface contour: Smooth Lesions: None. Biliary: No intrahepatic biliary duct dilation. CBD: 0.4 cm at the hilum. Gallbladder: Prior cholecystectomy Right and left Kidney: No hydronephrosis. Ascites: None. The spleen is 11.7 cm in length IMPRESSION IMPRESSION: Visualization is somewhat limited due to overlying bowel gas and patient build Fatty infiltration of the liver Otherwise normal sonographic appearance of the right upper quadrant. Normal sonographic appearance of the spleen In House Counsel: [facility] Transcribe Date/Time: Jan 10 2024 8:32A Dictated by : JUAREZ PARKINSON MD This examination was interpreted and the report reviewed and electronically signed by: JUAREZ PARKINSON MD on Jan 10 2024 8:34AM EST [facility] US Abdomen RUQon 01-10-2024 * * *Final Report* * * DATE OF EXAM: Jan 09 2024 3:02PM [facility] 1032 - US ABD RIGHT UPPER QUADRANT / PROCEDURE REASON: multiple diagnoses * * * * Physician Interpretation * * * * EXAMINATION: RIGHT UPPER QUADRANT ULTRASOUND CLINICAL HISTORY: Right upper quadrant pain TECHNIQUE: Sonography of the right upper quadrant was performed. Images were obtained and stored in a permanent archive. MQ: URUQ_2 COMPARISON: 06/28/2023. RESULT: Pancreas: Normal sonographic appearance. Portions obscured: tail Liver: Echotexture: Normal, homogeneous. Echogenicity: Diffusely increased echogenicity and increased attenuation of sound is consistent with fatty infiltration. Surface contour: Smooth Lesions: None. Biliary: No intrahepatic biliary duct dilation. CBD: 0.4 cm at the hilum. Gallbladder: Prior cholecystectomy Right and left Kidney: No hydronephrosis. Ascites: None. The spleen is 11.7 cm in length DIVISION OF RADIOLOGY Provider, [facility] - 01/10/2024 * * *Final Report* * * DATE OF EXAM: Jan 09 2024 3:02PM [facility] 1032 - US ABD RIGHT UPPER QUADRANT / PROCEDURE REASON: multiple diagnoses * * * * Physician Interpretation * * * * EXAMINATION: RIGHT UPPER QUADRANT ULTRASOUND CLINICAL HISTORY: Right upper quadrant pain TECHNIQUE: Sonography of the right upper quadrant was performed. Images were obtained and stored in a permanent archive. MQ: URUQ_2 COMPARISON: 06/28/2023. RESULT: Pancreas: Normal sonographic appearance. Portions obscured: tail Liver: Echotexture: Normal, homogeneous. Echogenicity: Diffusely increased echogenicity and increased attenuation of sound is consistent with fatty infiltration. Surface contour: Smooth Lesions: None. Biliary: No intrahepatic biliary duct dilation. CBD: 0.4 cm at the hilum. Gallbladder: Prior cholecystectomy Right and left Kidney: No hydronephrosis. Ascites: None. The spleen is 11.7 cm in length IMPRESSION IMPRESSION: Visualization is somewhat limited due to overlying bowel gas and patient build Fatty infiltration of the liver Otherwise normal sonographic appearance of the right upper quadrant. Normal sonographic appearance of the spleen In House Counsel: GABBY Transcribe Date/Time: Jan 10 2024 8:32A Dictated by : JUAREZ PARKINSON MD This examination was interpreted and the report reviewed and electronically signed by: JUAREZ PARKINSON MD on Jan 10 2024 8:34AM EST [facility] 25-hydroxyvitamin D3 [Mass/V ol]on 01-09-2024 Interpretation and review of laboratory results Normal [facility] The reference range interval was based on an analysis of samples from healthy adults and may not pertain to children from 0-18 years old. [facility] CBC panel Auto (Bld)on 01-08 Erythrocyte distribution width (RBC) [Ratio] 12.8 % 11.5 - 15.0 % [facility] Hematocrit (Bld) [Volume fraction] 41.2 % 36.0 - 46.0 % [facility] Hemoglobin (Bld) [Mass/Vol] 14.1 g/dL 11.5 - 15.5 g/dL [facility] Interpretation and review of laboratory results Abnormal [facility] MCH (RBC) [Entitic mass] 30.2 pg 26.0 - 34.[address] [facility] MCHC (RBC) [Mass/Vol] 34.2 g/dL 30.5 - 36.0 g/dL [facility] MCV (RBC) [Entitic vol] 88.2 fL 80.0 - 100.[address] [facility] Nucleated RBC (Bld) [#/Vol] NINF [facility] Platelet mean volume (Bld) [Entitic vol] 8.5 fL Low 9.0 - 12.[address] [facility] Platelets (Bld) [#/Vol] 308 10*3/uL [facility] RBC (Bld) [#/Vol] 4.67 10*6/uL 3.90 - 5.2 0 m/uL [facility] WBC (Bld) [#/Vol] 9.92 10*3/uL [facility] Comprehensive metabolic 2000 panelOrdered By: Yolanda Jorge on 01-09-2024 Albumin [Mass/Vol] 4.7 g/dL 3.9 - 4.9 g/dL [facility] ALP [Catalytic activity/Vol] 86 U/L 34 - 123 U/L [facility] ALT [Catalytic activity/Vol] 32 U/L 7 - 38 U/L [facility] Anion gap [Moles/Vol] 14 mmol/L 8 - 15 mmol/L [facility] AST [Catalytic activity/Vol] 24 U/L 13 - 35 U/L [facility] Bilirubin [Mass/Vol] 0.2 mg/dL 0.2 - 1 .3 mg/dL [facility] Calcium [Mass/Vol] 10.5 mg/dL High 8.5 - 10. 2 mg/dL [facility] Chloride [Moles/Vol] 97 mmol/L Low 98 - 10 7 mmol/L [facility] CO2 [Moles/Vol] 28 mmol/L 22 - 30 mmol/L [facility] Creatinine [Mass/Vol] 0.83 mg/dL 0.58 - 0.96 mg/dL [facility] GFR/1.73 sq M.predicted among non-blacks MDRD (S/P/Bld) [Vol rate/Area] 84 mL/min/{1.73_m2} - PINF [facility] Comment on above: Estimated Glomerular Filtration Rate (eGFR) is calculated using the 2020 CKD-EPI creatinine equation. This equation utilizes serum creatinine, sex, and age as parameters. The creatinine assay has traceable calibration to isotope dilution-mass spectrometry. Refer to KDIGO guidelines for clinical interpretation. In patients with unstable renal function, e.g. those with acute kidney injury, the eGFR may not accurately reflect actual GFR. Glucose [Mass/Vol] 83 mg/dL 74 - 99 mg/dL [facility] Comment on above: The [place] Diabete s Association (ADA) provides guidance for cutoff values for fasting glucose and random glucose. The ADA defines fasting as no caloric intake for at least 8 hours. Fasting plasma glucose results between 100 to 125 [...] Standards of Medical Care in Diabetes 2016, [place] Diabetes Association. Diabetes Care. 2016.39(Suppl 1). Interpretation and review of laboratory results Abnormal [facility] Potassium [Moles/Vol] 3.7 mmol/L 3.7 - 5.1 mmol/L [facility] Protein [Mass/Vol] 8.1 g/dL High 6.3 - 8.0 g/dL [facility] Sodium [Moles/Vol] 139 mmol/L 136 - 144 mmol/L [facility] Urea nitrogen [Mass/Vol] 16 mg/dL 7 - 21 mg/dL [facility] US ABD SPLEEN - NBon 01-08-2 024 Radiology Study observation (narrative) [facility] US Abdomen RUQon 01-09-2024 Radiology Study observation (narrative) [facility] VITAMIN D 25 HYDROXYon 01-08 25-hydroxyvitamin D3 [Mass/Vol] 70.1 ng/mL 31.0 - 80.0 ng/mL [facility] Comment on above: Classification of 25 [place] Vitamin D status: Deficiency/Insufficiency: < or = 30 ng/ml. Sufficiency/Optimal Levels: 31-80 ng/mL Toxicity: > 100 ng/mL. Test performed by chemiluminescent immunoassay. 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 Allergies fluoxetine HCl (From Prozac) Adverse Reaction (Verified 07/29/23 08:42) Other Office Procedures [facility] Billing Sheet Testing Breath Alcohol Test in ED (professor of astronomy fee charged): No Breath Alcohol in [facility]: Yes Breath Alcohol Test Pre-Employment: No Chest X-Ray (interpreted by radiologist): No DOT Drug Screen: No DOT Physical Exam: No DOT Pre-Employment Breath Alcohol: No DOT Pre-Employment Drug Screen: No DOT Reasonable Suspicion: No Drug Screen Collection Only: No Drug Test Performed by another entity: No ECG: No 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: No Employer Ordered Physical: No Flu Test: No Functional Capacity Evaluation: No Glucose (Finger): No Hair Collection Drug Screen: No Hair Collection Only: No Hair Testing Extended (Opiates): No HCG: No Hearing (Audiogram) Test: No Non-DOT Breath Alcohol Test in ED: No Non-DOT Random Drug Screen: No Non-DOT Reasonable Suspicion: No On Site Service Call (min of 1 hr plus cost of drug screen): No Other DOT Drug Screen: No Other Non-DOT Drug Screen: No Post-Accident DOT Drug Screen (in ED professor of astronomy fee charged): No Post-Accident DOT Drug Screen in [facility]: No Post-Accident Non-DOT Breath Alcohol Test: Yes Post-Accident NON-DOT Drug Screen (professor of astronomy fee charged in ED): No Post-Accident NON-DOT Drug Screen in ED (professor of astronomy fee charged): No Post-Accident NON-DOT Drug Screen in [facility]: Yes Pre-Employment Drug Screen [facility]: No Pre-Employment Drug Screen: No Pre-Employment PE: No Random Consortium DOT (yearly plus drug testing fee): No Random Consortium Non-DOT (yearly plus drug testing fee): No Respirator Clearance (form only): No Respirator Fit Testing: No RSV/Flu Nyla: No Saliva Drug Screen: No Second Drug Screen: No Strep Nyla: No TB Test: No Tdap (over age 7): No Titmus Screening: No Vision Test: No Stress Test (conducted interpreted by a sterilisation technician): No Occquant-Quantiferon: No 11/17/23 0618 Date Milad Blake Signature: Date (if applicable) CC: Normal [facility] Emergency Department Summary on 07-29-2023 Emergency Department Summary [facility] Medical Records Department [address] [place] [address] Emergency Department Summary 07/29/23 MR#: [id number] Acct: [id number] Name: RONNIE KATZ Aroldo Rep #: [id number] : 1970 52 From: Kurt Rosenberg MD PCP: Dr. Stanley Sweeney, DO Status:DEP ER Location: ED HPI History of Present Illness HPI Narrative: 52-year-old female no significant prior history of knee problems or knee surgery. She was at work some was coming through the door she went to step back return and felt discomfort in her right medial knee and thigh area. No fall injury or trauma. Prior to today said it was not giving her any problem. No fever or redness. No significant swelling. Painful to walk on now. This occurred around 7:30 AM today at work. They do want make it Worker's Comp. Chief Complaint: Lower Extremity Injury Informant: patient and spouse/S.O. Occured/Mechanism Mechanism/Context: Yes injury Onset/Context/Timing Onset: Today Context: Sudden Onset Timing: Continuous Quality of Pain: Sharp Current Severity: Mild Maximum Severity: Mild Associated Symptoms Associated Symptoms: Negative for Parasthesia, Weakness or Loss of Funtion Narrative Narrative: 52-year-old female right knee injury at work. Can walk but has pain with walking. No prior history of surgery. Prior similar symptoms: No Recent Illness/Hospitalizati on: No PFSH PFSH Medical History Anemia Carpal tunnel syndrome Carpal tunnel syndrome of left wrist Depression Diastasis of rectus abdominis ( 12/2015) Dysthymic disorder Frequent headaches Genital herpes in women ( 01/2007) GERD (gastroesophageal reflux disease) HSV (herpes simplex virus) anogenital infection Hypercholesteremia ( 05/2015) Onychomycosis SHAINA (obstructive sleep apnea) ( 04/2017) Vision problems Vitamin D deficiency Home Medications calcium carbonate 500 mg-vitamin D3 5 mcg (200 unit) tablet 1 ea PO DAILY 11/03/15 [History Last Taken Unknown] levothyroxine 75 mcg tablet 75 mcg PO DAILY 11/03/15 [History Last Taken 03/09/18 07:00 75 MCG] multivitamin 1 ea PO DAILY 11/03/15 [History Last Taken Unknown] trazodone 50 mg tablet 50 mg PO QHS 11/03/15 [History Last Taken Unknown] venlafaxine 150 mg capsule,extended release 24 hr 150 mg PO DAILY 11/03/15 [History Last Taken Unknown] magnesium 250 mg tablet 250 mg PO DAILY 02/13/18 [History Last Taken Unknown] omeprazole 20 mg capsule,delayed release 40 mg PO QDAY 02/13/18 [History Last Taken 03/09/18 07:00 40 MG] Allergy/AdvReac Type Severity Reaction Status Date / Time fluoxetine HCl [From Prozac] AdvReac Other Verified 07/29/23 08:42 Family History Mother Anesthesia complication High cholesterol Thyroid disorder Father Anxiety Depression Diabetes High cholesterol CVA (cerebral vascular accident) Sister Thyroid disorder Grandmother Breast cancer Cancer Grandfather Cancer Surgical History History of appendectomy History of carpal tunnel surgery of right wrist ( 09/2016) History of thyroid nodule ( 07/2007) History of thyroid surgery ( 08/2007) History of vaginal hysterectomy ( 11/2009) Social History household members: spouse number of children: 3 current occupational status: unemployed Smoking Status: Never smoker alcohol intake: never substance use type: does not use additional social history: CONTROL/PROTECTION: HAD VASECTOMY AND SHE HAS HAD A HYSTERECTOMY ROS ROS ED ROS Narrative Denies recent illness. Review of Systems ROS Unobtainable: Denies due to encephalopathy Constitutional Constitutional ED: Denies chills or fever(s) Eyes Eyes: Denies blurry vision ENT ENT ED: Denies ear pain Cardiovascular Cardiovascular: Denies chest pain or palpitations Respiratory/Chest Respiratory/Chest: Denies cough or dyspnea Gastrointestinal Gastrointestinal: Denies abdominal pain Genitourinary Genitourinary ED: Denies dysuria or hematuria Musculoskeletal Musculoskeletal: Denies arthralgias or back pain Integumentary Denies abscess or Abrasions Neurologic Neurologic: Denies headache(s) Psychiatric Psychiatric: Denies anxiety or depression Endocrine Endocrinology: Denies polydipsia or polyphagia Hematologic/Lymphatic Hematologic/Lymphatic : Denies easy bleeding, easy bruising or lymphadenopathy Allergic/Immunologic Allergic/Immunologic ED: Denies mouth swelling, tongue swelling or urticaria EXAM Physical Exam Narrative Exam Narrative: Well-appearing 52-year-old female. Vital signs stable afebrile. HEENT exam unremarkable. Neck nontender no lymphadenopathy. Lungs clear to auscultation bilaterally. H (more content not included)... Normal [facility] Knee 4 or More Viewson 07-28 Knee 4 or More Views [facility] Services [address] [place] [address] Knee 4 or More Views MR#: [id number] Acct: [id number] Name: RONNIE KATZ Rep #: [id number] : 1970 F 52 From: Harpal foley MD PCP: Dr. Stanley Sweeney DO Status: PRE ER Study: Knee 4 or More Views Date of Exam: 07/29/23 Exam# [id number] Ordering Dr: Alex Clay P. [id number] STUDY: X-RAY - RIGHT KNEE REASON FOR EXAM: Female, 52 years old. Pain. Unable to bear weight following injury. TECHNIQUE: 4 view(s) of the knee. COMPARISON: None. FINDINGS: Normal visualized distal femur. Normal visualized proximal tibia and fibula. Normal proximal tibiofibular articulation. Normal medial femorotibial compartment. Normal lateral femorotibial compartment. Normal patellofemoral articulation. Small joint effusion. RAD/Knee 4 or More Views IMPRESSION: Small joint effusion. Electronically Signed: Harpal Arzate MD at 9:32 EDT , CC: Dr. Stanley Sweeney DO; ED PHYSICIAN PROVIDER In House Counsel[facility] S[facility] Office Visit (AGGENS4) RONNIE KATZ ([id number]) 1970 F [place] Date Time Provider Department 07/20/23 9:00 AM GINNA AGARWAL4 During your visit today, we recorded the following information about you: Pulse Blood pressure Weight Height 96/minute 130/73 117 kg 1.626 m Ginna Agarwal MD 07/20/2023 9:31 AM Signed SURGICAL SERVICES HISTORY AND PHYSICAL EXAMINATION SERVICE DATE: 07/20/2023 SERVICE TIME: 9:16 AM PRIMARY CARE PHYSICIAN: Stanley Sweeney DO SUBJECTIVE CHIEF COMPLAINT: follow up after surgery HISTORY OF PRESENT ILLNESS: Ms. Katz is a 52 year old female with a PMH of diastasis rectus, depression, advanced hepatic fibrosis, asthma (inhaler rare and PRN), HLD, obesity (BMI 44), SHAINA (CPAP) presents for follow up after cholecystectomy on 07/05/23. The patient reports no issues since surgery aside from one of the small 5-mm incisions that has opened up slightly. She denies nausea, emesis, diarrhea, constipation, or any other issues. She is tolerating a normal diet without issue. Pathology: A. Gallbladder, cholecystectomy: - Cholelithiasis and cholesterolosis. B. Liver, wedge biopsy: - Mild steatosis. See comment PAST MEDICAL HISTORY: PAST MEDICAL HISTORY Diagnosis Date Diastasis of rectus abdominis 12/11/2015 Dysthymic disorder Depression (non-psychotic) Environmental allergies spring. Gallstones Genital herpes, unspecified 01/09/2007 HSV (herpes simplex virus) anogenital infection 1990 Hypercholesteremia 05/2015 Leukocytoclastic vasculitis (HCC) 2012 dx by Aliyah Wallace Onychomycosis SHAINA (obstructive sleep apnea) 04/13/2017 Persistent asthma without complication 06/12/2018 + JADA 06/2018, chronic cough, abnormal RAST. PAST SURGICAL HISTORY: PAST SURGICAL HISTORY Procedure Laterality Date APPENDECTOMY CARPAL TUNNEL 2017 CARPAL TUNNEL Right 2018 CHOLECYSTECTOMY HX 07/05/2023 LIVER BIOPSY 07/05/2023 NEUROPLASTY AND/TRANSPOS MEDIAN NRV CARPAL TUNNE Right 09/13/2016 THYROID LEFT FINE NEEDLE ASPIRATION 08/02/2007 U/ S FNA left thyroid nodule TOTAL THYROID LOBECTOMY UNI W/WO ISTHMUSECTOMY 08/31/2007 LEFT VAGINAL HYSTERECTOMY UTERUS 250 GM/< 12/01/2009 TVH for fibroid, menorrhagia, adenomyosis FAMILY HISTORY: FAMILY HISTORY Problem Relation Age of Onset other (FIBROMYALGIA) Mother Lipids Father Ischemic Heart Disease Father Heart Father GA has hole in heart Stroke Father Diabetes Father Stroke Maternal Grandmother Alzheimer's Disease Maternal Grandmother Psychiatry Maternal Grandmother DEMENTIA Breast Cancer Maternal Grandmother Diabetes Other pcousin Heart Sister Hole in heart Thyroid Sister Allergies No Family History Asthma No Family History SOCIAL HISTORY: Social History Tobacco Use Smoking status: Never Smokeless tobacco: Never Tobacco comments: No ETS in childhood or current home. Vaping Use Vaping Use: Never used Substance Use Topics Alcohol use: No Drug use: No MEDICATIONS: Current Outpatient Medications Medication Sig venlafaxine ER (EFFEXOR XR) 150 mg 24 hr capsule Take 1 capsule by mouth once daily. venlafaxine ER (EFFEXOR XR) 75 mg 24 hr capsule Take 1 capsule by mouth once daily. levothyroxine (SYNTHROID) 75 mcg tablet Take 1 tablet by mouth daily 5 days per week. Take 1.5 tablets by mouth daily 2 days per week. Take in the morning on an empty stomach. traZODone (DESYREL) 50 mg tablet Take 1 tablet by mouth daily at bedtime. furosemide (LASIX) 40 mg tablet Take 1 tablet by mouth twice daily Calcium-Cholecalcifer ol, D3, 600 mg-10 mcg (400 unit) cap Take 1 capsule by mouth once daily. pantoprazole DR (PROTONIX) 40 mg tablet Take 1 tablet by mouth once daily. potassium chloride (K-TAB) 10 mEq tablet Take 1 tablet by mouth daily with breakfast. albuterol HFA (PROVENTIL HFA, VENTOLIN HFA) 90 mcg/actuation inhaler Inhale 2 Puffs as instructed every 4 hours as needed. cholecalciferol (VITAMIN D3) 50 mcg (2,000 unit) tablet Take 1 tablet by mouth once daily. loratadine (CLARITIN) 10 mg tablet Take 1 tablet by mouth once daily. CPAP Initiate CPAP @ 10 cm of water with humidification. Mask (per patient preference) optional chin strap (if indicated) , filters, tubing, humidifier and lifetime supplies. COMPOUNDED PRESCRIPTION CPAP Supplies; hose; mask DX: SHAINA multivitamins(DAILY VITAMIN TAB) Take one(1) tablet daily. budesonide-formoterol (SYMBICORT) 80-4.5 mcg/actuation inhaler Inhale 2 Puffs as instructed twice daily. Current Facility-Administered Medications Medication Dose Route Frequency perflutren lipid microspheres 1.3 mL in NaCl (PF) 0.9% 10 mL injection (DEFINITY) INTRAVENOUS DIRECTED PRN sodium chloride 0.9 % (flush) 10 mL (BD POSIFLUSH) 10 mL INTRAVENOUS DIRECTED PRN ALLERGIES: ALLERGIES Allergen Reactions Prozac [Fluoxetine * Other (more content not included)... Normal [facility]NPNon [facility]20[facility] KATZRONNIE PASCAL ([id number]) 1970 F [place] Date Time Provider Department 07/20/23 GINNA AGARWAL4 During your visit today, we recorded the following information about you: Kavita Welch RN 07/20/2023 9:47 AM Signed Bariatric Seminar re-sent. Kavita Welch RN, BSN Bariatric Sifting Operator Allergies As of Date: 07/20/2023 Noted Allergy Reaction PROZAC (FLUOXETINE HCL) 07/14/2011 14 - Other: See Comments Comments: Aggressive behavior, emotional Date Reviewed: 07/20/2023 Reviewed by: Ginna Agarwal MD - Fully Assessed Reason for Visit: Bariatric Seminar [Other] Prescriptions as of 07/20/2023 - venlafaxine ER (EFFEXOR XR) 150 mg 24 hr capsule Take 1 capsule by mouth once daily. - venlafaxine ER (EFFEXOR XR) 75 mg 24 hr capsule Take 1 capsule by mouth once daily. - levothyroxine (SYNTHROID) 75 mcg tablet Take 1 tablet by mouth daily 5 days per week. Take 1.5 tablets by mouth daily 2 days per week. Take in the morning on an empty stomach. - traZODone (DESYREL) 50 mg tablet Take 1 tablet by mouth daily at bedtime. - furosemide (LASIX) 40 mg tablet Take 1 tablet by mouth twice daily - Calcium-Cholecalcifer ol, D3, 600 mg-10 mcg (400 unit) cap Take 1 capsule by mouth once daily. - pantoprazole DR (PROTONIX) 40 mg tablet Take 1 tablet by mouth once daily. - potassium chloride (K-TAB) 10 mEq tablet Take 1 tablet by mouth daily with breakfast. - budesonide-formoterol (SYMBICORT) 80-4.5 mcg/actuation inhaler Inhale 2 Puffs as instructed twice daily. - albuterol HFA (PROVENTIL HFA, VENTOLIN HFA) 90 mcg/actuation inhaler Inhale 2 Puffs as instructed every 4 hours as needed. - cholecalciferol (VITAMIN D3) 50 mcg (2,000 unit) tablet Take 1 tablet by mouth once daily. - loratadine (CLARITIN) 10 mg tablet Take 1 tablet by mouth once daily. - CPAP Initiate CPAP @ 10 cm of water with humidification. Mask (per patient preference) optional chin strap (if indicated) , filters, tubing, humidifier and lifetime supplies. - COMPOUNDED PRESCRIPTION CPAP Supplies; hose; mask DX: SHAINA - multivitamins(DAILY VITAMIN TAB) Take one(1) tablet daily. 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] 09/14/2007 Abdominal pain, lower [R10.30] 09/04/2009 07/14/2011 Menorrhagia [N92.0] 09/04/2009 07/14/2011 Enlarged uterus [N85.2] 10/22/2009 07/14/2011 Pelvic pain 10/22/2009 07/14/2011 Anxiety [F41.9] 07/19/2011 Panic attack [F41.0] 07/19/2011 Diastasis of rectus abdominis [M62.08] 12/11/2015 04/13/2017 Carpal tunnel syndrome, bilateral [G56.03] 07/23/2016 Gastroesophageal reflux disease without esophag*09/10/2016 Medication monitoring encounter [Z51.81] 09/13/2016 04/13/2017 SHAINA (obstructive sleep apnea) [G47.33] 04/13/2017 Mixed hyperlipidemia [E78.2] 04/25/2017 Obesity, Class II, BMI 35-39.9 [E66.9] 04/25/2017 10/30/2020 Diastasis of rectus abdominis [M62.08] 11/01/2017 Vitamin D deficiency [E55.9] 11/01/2017 Elevated fasting glucose [R73.01] 11/01/2017 Plantar fasciitis [M72.2] 11/01/2017 Belching [R14.2] 11/01/2017 Rhus dermatitis [L25.5] 11/01/2017 Mild intermittent asthma, uncomplicated [J45.20]05/19/2018 Environmental allergies [Z91.09] Persistent asthma without complication [J45.909]06/12/2018 Fatty liver [K76.0] 12/31/2019 HSV (herpes simplex virus) anogenital infection*1990 Obesity, Class III, BMI 40-49.9 (morbid obesity*10/01/2020 Leukocytoclastic vasculitis (HCC) [M31.0] 10/29/2020 Malaise and fatigue [R53.81, R53.83] 10/30/2020 Positive KRISTINE (antinuclear antibody) [R76.8] 10/30/2020 Arthralgia of right knee [M25.561] 10/30/2020 Myalgia [M79.10] 10/30/2020 Severe episode of recurrent major depressive di*10/30/2020 Anxiety with depression [F41.8] 10/31/2020 Encounter Status:Closed by KAVITA WELCH on 07/20/23 [facility] ANES POSTPROC EVALon 024 ANES POSTPROC EVAL HNO ID: [id number] Author: SHASTA JAY MD Service: Anesthesiology Author Type: Anesthesiologist Type: Anesthesia Postprocedure Evaluation Filed: 07/06/2023 10:47 Note Text: POST ANESTHESIA EVALUATION NOTE : 1970 Procedure Summary Date: 07/05/23 Room / Location: TX OR TX OR Anesthesia Start: 07 Anesthesia Stop: 1014 Procedures: LAPAROSCOPIC BIOPSY LIVER (Abdomen) LAPAROSCOPIC CHOLECYSTECTOMY WITH GRAMS (Abdomen) Diagnosis: Calculus of gallbladder without cholecystitis without obstruction (Calculus of gallbladder without cholecystitis without obstruction [K80.20]) Surgeons: Ginna Agarwal MD Responsible Provider: Shasta Jay MD Anesthesia Type: general ASA Status: 3 Anesthesia Type: general Airway Type: ETT Last Vitals Vitals Value Taken Time BP 122/64 07/05/23 1230 Temp 36.3 ?C (97.3 ?F) 07/05/23 1225 HR SpO2 87 07/05/23 1234 Resp 17 07/05/23 1234 SpO2 93 % 07/05/23 1234 Post Anesthesia Patient Status Patient Evaluation: PACU. PACU/ICU Patient Condition: stable. Anticipated Disposition: phase 2 then home. Neurological Status: aware and responsive. Pulmonary Status: breathing comfortably on room air Airway Control: returned to baseline unsupported. Cardiovascular Status: stable. Pain Management: clinically adequate Postoperative Hydration: acceptable. Intraoperative Events: no significant anesthesia events Post Operative Nausea/Vomiting Status: no significant post operative nausea or vomiting Recommendation: continue current plan of care. Anesthesia Observations No Documentation SIGNATURE: Shasta Jay MD PATIENT NAME: Ronnie Katz DATE: July 06, 2023 TIME: 10:46 AM CSN: [id number] Normal [facility] ANES PRE-OPon 07-05-2023 ANES PRE-OP HNO ID: [id number] Author: SHASTA JAY MD Service: Anesthesiology Author Type: Anesthesiologist Type: Anesthesia Preprocedure Evaluation Filed: 07/05/2023 07:26 Note Text: ANESTHESIOLOGY DAY OF SURGERY NOTE : 1970 Procedure Information Date/Time: 07/05/23 0730 Procedures: LAPAROSCOPIC CHOLECYSTECTOMY WITH GRAMS (Abdomen) TRANSFUSION BLOOD (Abdomen) Location: [place] OR OR Surgeons: Ginna Agarwal MD Estimated body mass index is 44.42 kg/m? as calculated from the following: Height as of 05/25/23: 162.6 cm (5' 4). Weight as of this encounter: 117.4 kg (258 lb 12.8 oz). Most recent hematocrit and potassium results: Hematocrit 42.7 05/27/2023 Potassium 4.2 05/27/2023 Relevant Problems ANESTHESIA (+) SHAINA (obstructive sleep apnea) CARDIO (+) Leukocytoclastic vasculitis (HCC) GI (+) Gastroesophageal reflux disease without esophagitis -RENAL (+) Fatty liver PULMONARY (+) Mild intermittent asthma, uncomplicated (+) SHAINA (obstructive sleep apnea) (+) Persistent asthma without complication I - PHYSICAL EVALUATION AIRWAY Patient intubated: No. Mallampati: II. TM distance: >3 FB. Neck ROM: full ROM without neurological symptoms. Mouth opening: adequate. Short neck: yes. Thick neck: yes Forte present: no DENTAL Dental findings: teeth intact. II - ANESTHESIA PLAN ASA Score: 3 Anesthetic Plan: general Airway type: ETT The patient is not a current smoker. NPO Status: adequate Beta Alayna Monitoring Plan Monitoring plan: standard ASA. Post Procedure Analgesic Plan Postoperative analgesic plan: parenteral or oral opioids. Informed Consent Anesthetic risks, benefits, alternatives, personnel and consent discussed: yes. Patient / Responsible Alliance Party agrees to proceed: yes Patient / Surrogate agrees to blood products: blood products not planned Significant changes in the patient condition since the History and Physical, not otherwise documented in primary service progress note: no. Potential Anesthesia issues that may suggest increased risk of complications or contraindication to planned procedure: none. Vitals Value Taken Time BP 131/74 07/05/23 0631 Pulse Resp 17 07/05/23 0631 Temp 36.1 ?C (97 ?F) 07/05/23 0631 SpO2 95 % 07/05/23 0633 Vitals shown include unfiled device data. Facility-Administered Medications as of 07/05/2023 Medication Dose Route Frequency - lidocaine 10 mg/mL (1 %) 1-2 mg injection (XYLOCAINE) 0.1-0.2 mL INTRADERMAL PRN - lactated ringers iv infusion 5-30 mL/hr INTRAVENOUS CONTINUOUS - NaCl 0.9% iv flush bag 20 mL INTRAVENOUS PRN - [COMPLETED] acetaminophen 975 mg tab(s) (TYLENOL) 975 mg ORAL Pre-Op Once - [COMPLETED] celecoxib 400 mg cap(s) (CeleBREX) 400 mg ORAL Pre-Op Once - [COMPLETED] gabapentin 300 mg cap(s) (NEURONTIN) 300 mg ORAL Pre-Op Once - ceFAZolin iv piggyback 2 g in D5W (iso-osmotic) 100 mL (ANCEF) 2 g INTRAVENOUS Pre-Op Once Outpatient Medications as of 07/05/2023 Medication Sig - levothyroxine (SYNTHROID) 75 mcg tablet Take 1 tablet by mouth daily 5 days per week. Take 1.5 tablets by mouth daily 2 days per week. Take in the morning on an empty stomach. - traZODone (DESYREL) 50 mg tablet Take 1 tablet by mouth daily at bedtime. - furosemide (LASIX) 40 mg tablet Take 1 tablet by mouth twice daily - Calcium-Cholecalcifer ol, D3, 600 mg-10 mcg (400 unit) cap Take 1 capsule by mouth once daily. - pantoprazole DR (PROTONIX) 40 mg tablet Take 1 tablet by mouth once daily. - potassium chloride (K-TAB) 10 mEq tablet Take 1 tablet by mouth daily with breakfast. - cholecalciferol (VITAMIN D3) 50 mcg (2,000 unit) tablet Take 1 tablet by mouth once daily. - loratadine (CLARITIN) 10 mg tablet Take 1 tablet by mouth once daily. - multivitamins(DAILY VITAMIN TAB) Take one(1) tablet daily. - albuterol HFA (PROVENTIL HFA, VENTOLIN HFA) 90 mcg/actuation inhaler Inhale 2 Puffs as instructed every 4 hours as needed. - CPAP Initiate CPAP @ 10 cm of water with humidification. Mask (per patient preference) optional chin strap (if indicated) , filters, tubing, humidifier and lifetime supplies. - COMPOUNDED PRESCRIPTION CPAP Supplies; hose; mask DX: SHAINA I have interviewed and examined the patient. I have reviewed the medical record and/or the pre-anesthesia evaluation, pertinent labs, and test results. This contains updated information obtained within 48 hours of Surgery/Procedure. SIGNATURE: Shasta Jay MD PATIENT NAME: Ronnie Katz DATE: July 05, 2023 TIME: 7:24 AM CSN: [id number] [facility] HISTORY PHYSICALon HISTORY PHYSICAL HNO ID: [id number] Author: GINNA AGARWAL MD Service: General Surgery Author Type: Resident Type: H&P Filed: 07/05/2023 07:37 Note Text: Attestation signed by Ginna Agarwal MD at 07/05/2023 7:37 AM I saw and evaluated/examined the patient with the resident and personally participated in the vega components. I have reviewed the resident's note and discussed the case and management of the patient's care with the resident. I agree with the above assessment and plan unless otherwise noted below. Plan of care discussed with: Provider, RN, Patient. HISTORY AND PHYSICAL EXAM: BARIATRIC SERVICE SERVICE DATE: 07/05/2023 SERVICE TIME: 6:45 AM Subjective CHIEF COMPLAINT: pre-op for cholecystectomy HPI: 52 year old female diastasis rectus, depression, advanced hepatic fibrosis, asthma (inhaler rare and PRN), HLD, gallstones, obesity (BMI 44), SHAINA (CPAP) who is here today for elective laparoscopic cholecystectomy. She states she still has the RUQ pain off and on every now and again. Feeling well this morning with no complaints. FUNCTIONAL STATUS: Independent PAST MEDICAL HISTORY Diagnosis Date Diastasis of rectus abdominis 12/11/2015 Dysthymic disorder Depression (non-psychotic) Environmental allergies Spring worse. Gallstones Genital herpes, unspecified 01/09/2007 HSV (herpes simplex virus) anogenital infection 1990 Hypercholesteremia 05/2015 Leukocytoclastic vasculitis (HCC) 2012 dx by Aliyah Wallace Onychomycosis SHAINA (obstructive sleep apnea) 04/13/2017 Persistent asthma without complication 06/12/2018 + JADA 06/2018, chronic cough, abnormal RAST. PAST SURGICAL HISTORY Procedure Laterality Date APPENDECTOMY CARPAL TUNNEL 2017 CARPAL TUNNEL Right 2017 NEUROPLASTY AND/TRANSPOS MEDIAN NRV CARPAL TUNNE Right 09/13/2016 THYROID LEFT FINE NEEDLE ASPIRATION 08/02/2007 U/ S FNA left thyroid nodule TOTAL THYROID LOBECTOMY UNI W/WO ISTHMUSECTOMY 08/31/2007 LEFT VAGINAL HYSTERECTOMY UTERUS 250 GM/< 12/01/2009 TVH for fibroid, menorrhagia, adenomyosis FAMILY HISTORY Problem Relation Age of Onset other (FIBROMYALGIA) Mother Lipids Father Ischemic Heart Disease Father Heart Father GA has hole in heart Stroke Father Diabetes Father Stroke Maternal Grandmother Alzheimer's Disease Maternal Grandmother Psychiatry Maternal Grandmother DEMENTIA Breast Cancer Maternal Grandmother Diabetes Other pcousin Heart Sister Hole in heart Thyroid Sister Allergies No Family History Asthma No Family History Social History Tobacco Use Smoking status: Never Smokeless tobacco: Never Tobacco comments: No ETS in childhood or current home. Vaping Use Vaping Use: Never used Substance Use Topics Alcohol use: No Drug use: No perflutren lipid microspheres 1.3 mL in NaCl (PF) 0.9% 10 mL injection (DEFINITY), , INTRAVENOUS, DIRECTED PRN, Adia oRbles, CONSULTING ACTUARY.FLANGING ROLL OPERATOR sodium chloride 0.9 % (flush) 10 mL (BD POSIFLUSH), 10 mL, INTRAVENOUS, DIRECTED PRN, Travis, Adia, CONSULTING ACTUARY.FLANGING ROLL OPERATOR venlafaxine ER (EFFEXOR XR) 150 mg 24 hr capsule, Take 1 capsule by mouth once daily., Disp: 90 capsule, Rfl: , 07/04/2023 venlafaxine ER (EFFEXOR XR) 75 mg 24 hr capsule, Take 1 capsule by mouth once daily., Disp: 90 capsule, Rfl: , 07/04/2023 levothyroxine (SYNTHROID) 75 mcg tablet, Take 1 tablet by mouth daily 5 days per week. Take 1.5 tablets by mouth daily 2 days per week. Take in the morning on an empty stomach., Disp: 90 tablet, Rfl: , 07/05/2023 at 0400 traZODone (DESYREL) 50 mg tablet, Take 1 tablet by mouth daily at bedtime., Disp: 90 tablet, Rfl: 3, 07/04/2023 furosemide (LASIX) 40 mg tablet, Take 1 tablet by mouth twice daily, Disp: 60 tablet, Rfl: 0, Unknown Calcium-Cholecalcifer ol, D3, 600 mg-10 mcg (400 unit) cap, Take 1 capsule by mouth once daily., Disp: 90 capsule, Rfl: 3, 07/04/[address] (PROTONIX) 40 mg tablet, Take 1 tablet by mouth once daily., Disp: 30 tablet, Rfl: 5, 07/05/2023 at 0400 potassium chloride (K-TAB) 10 mEq tablet, Take 1 tablet by mouth daily with breakfast., Disp: 90 tablet, Rfl: 1, 07/04/2023 cholecalciferol (VITAMIN D3) 50 mcg (2,000 unit) tablet, Take 1 tablet by mouth once daily., Disp: 90 tablet, Rfl: 3, 07/04/2023 loratadine (CLARITIN) 10 mg tablet, Take 1 tablet by mouth once daily., Disp: 30 tablet, Rfl: 11, 07/04/2023 multivitamins(DAILY VITAMIN TAB), Take one(1) tablet daily., Disp: , Rfl: 0, 07/04/2023 budesonide-formoterol (SYMBICORT) 80-4.5 mcg/actuation inhaler, Inhale 2 Puffs as instructed twice daily., Disp: 14 g, Rfl: 2 albuterol HFA (PROVENTIL HFA, VENTOLIN HFA) 90 mcg/actuation inhaler, Inhale 2 Puffs as instructed every 4 hours as needed., Disp: 18 g, Rfl: 1, Unknown CPAP, Initiate CPAP @ 10 cm of water with humidification. Mask (per (more content not included)... [facility] OPERATIVE NOon 07-05-2023 OPERATIVE NO HNO ID: [id number] Author: GINNA AGARWAL MD Service: General Surgery Author Type: Physician Type: Operative Report Filed: 07/05/2023 10:13 Note Text: OPERATIVE/PROCEDURE REPORT LOG ID: [id number] Surgery/Procedure Date: 07/05/2023 Incision/Procedure Start Time: 8:00 AM Incision Close/Procedure End Time: 9:53 AM Surgeon(s)/Procedural ist(s) and Inorganic Chemistry Teacher(s): Surgeon(s) and Role: * Ginna Agarwal MD - Primary * Irma Loaiza DO - Resident - Assisting Procedure(s): 1.- Laparoscopic cholecystectomy with intraoperative cholangiogram 2.- Wedge biopsy of the liver (59 modifier as a distinct procedure) A modifier 59 is applied to wedge resection liver biopsy as this is a distinct and different procedure from the primary operation of cholecystectomy with intraoperative cholangiogram. Liver biopsy was performed as a separate procedure per request of the patient's medical team to prevent need for a second anesthesia and second procedure. Anesthesia: General Pre-Op/Pre-Procedure Diagnosis: - Cholelithiasis Post-Op/Post-Procedur e Diagnosis: Cholelithiasis Operative Indication: Ronnie Katz is a 52 year old year old female who presents with symptomatic cholelithiasis and also with request for liver biopsy. We discussed the risks, benefits, alternatives and potential complications of surgical management and the patient agreed to proceed. Operative Findings: Enlarged thickened gallbladder which was very intra-hepatic within a very large and fatty liver Procedure Details: In the pre-operative area a safety huddle was performed which included the nursing, anesthesia, and surgical teams; all members in attendance verified the correct patient, date of , MRN, and procedure to be performed. The patient was then taken to the operating room and placed supine in the operating table. General endotracheal anesthesia was induced. The patient's extremities were secured to the operating room table; a pillow was placed under her knees; and all pressure points were appropriately padded. The abdomen was prepped and draped in the standard sterile fashion. A surgical time out was performed. The peritoneal cavity was accessed using a 5mm optical trocar. Pneumoperitoneum was established and 3 additional trocars were placed. The gallbladder was identified and retracted towards the right upper quadrant. The peritoneum overlying Calot's triangle was carefully dissected using blunt dissection and the hook electrocautery. This dissection was very difficult due to the very intrahepatic nature of the gallbladder and the middle portion of the enlarged gallbladder was folded over the infundibulum. Therefore, the decision was made to place the Fastclamp liver retractor to retract the medial portion of the right lobe of the liver for better visualization. With placement of the liver retractor the exposure was enhanced. The cystic duct and cystic artery were identified and individually dissected. The critical view of safety was obtained - it was verified that two and only two structures were entering the gallbladder which was from the liver by it's lower third; and the hepatocystic triangle was cleared of fat and fibrous tissue. However, the cystic duct appeared thickened, so an intraoperative cholangiogram was performed. The cystic duct was cannulated with a cholagiogram catheter via use of the Fernández clamp and a cholangiogram obtained. Interpretation revealed a normal cystic duct with proximal filling of the left and right hepatic ducts as well as distal flow to the duodenum. There were no filling defects consistent with stones. At this point the cystic duct was clipped using clips - three weck clips were placed on the stay side and one on the specimen side and then divided with scissors. We were able to see that there was a small lumen around layers of inflammatory tissue and fat. The cystic artery was then clipped with two clips on the stay side and one on the specimen side. The gallbladder was then dissected from the liver bed using the hook electrocautery. Hemostasis was achieved. Next, a wedge resection of the medial aspect of the right lobe of the liver was performed by biopsying a small wedge of liver using the Bovie electrocautery set to 80. The specimen was placed in an endocatch bag and retrieved. The liver bed was examined once again and all clips were visualized and noted to be in the proper position. The liver bed was addressed with electrocautery and irrigated. Then Surgicel powder was applied to the liver bed and the liver biopsy site. The 12 mm port site was closed with a [id number] 0-Vicryl stitch. Then all ports were removed under direct visualization. The skin was closed using 4-0 Monocryl. All 30 ml of 0.25% marcaine was used. Surgical glue was placed on the incisions. All counts were correct at the end of the case. The patient was extubated and taken (more content not included)... [facility] SURGICAL PATHOLOGYon CASE REPORT [facility] Comment on above: Order Comment: Speci men Type: TISSUE SPECIMENOrdering Facility: [facility] Address: [address] [place] [address] Result Comment: [facility] Pathology Report Case: [id number] Authorizing Provider: Ginna Agarwal MD Collected: 07/05/2023 09:35 AM Ordering Location: [place] [facility] Received: 07/06/2023 07:22 AM Pathologist: Mario Cotton MD Specimens: A) - GALLBLADDER B) - LIVER BIOPSY, WEDGE BIOPSY OF THE LIVER Performed By: #### S ####[facility]ORYCL[facility] [id number] [address] CLINICAL HISTORY Normal [facility] Comment on above: Order Comment: Speci men Type: TISSUE SPECIMENOrdering Facility: [facility] Address: [address] [place] [address] Result Comment: Pre- op diagnosis: Calculus of gallbladder without cholecystitis without obstruction [K80.20] Performed By: #### S ####[facility]ORYCLIA [id number] [address] DIAGNOSIS COMMENT Normal [facility] Comment on above: Order Comment: Speci men Type: TISSUE SPECIMENOrdering Facility: [facility] Address: [address] [place] [address] Result Comment: The patient is an obese female with a history of elevated liver enzymes. Pertinent studies reveal alkaline phosphatase 70 (31-123), AST 37 (13-35), ALT 42 (7-38), a liver fibrosis and activity score of F0 (no fibrosis) and A0-A1 (no activity), normal/negative viral hepatitis studies, KRISTINE, ASMA, AMA, HFE, alpha-1 antitrypsin, and ceruloplasmin. The specimen consists of a subcapsular wedge biopsy of hepatic parenchyma with significant areas of crush/thermal artifact. There is mild steatosis (approximately 10-15%) with no evidence of ballooned hepatocytes or lobular inflammation seen. Portal areas contain the normal constituents and are unremarkable. An iron stain reveals no evidence of increased tissue iron. A trichrome stain reveals no evidence of increased fibrosis. A reticulin stain reveals intact reticulin networks. A PAS/D stain reveals no evidence of cellular inclusions. Overall findings reveal steatosis with an overall NAFLD activity score (LEVON) of 1/8 (steatosis score 1, ballooned hepatocytes score 0, lobular inflammation score 0). This case was reviewed by Dr. Ernst Gifford who agrees with this assessment. Performed By: #### S ####[facility]ORYCLIA [id number] [address] FINAL DIAGNOSIS Normal [facility] Comment on above: Order Comment: Speci men Type: TISSUE SPECIMENOrdering Facility: [facility] Address: [address] [place] [address] Result Comment: A. G allbladder, cholecystectomy: - Cholelithiasis and cholesterolosis. B. Liver, wedge biopsy: - Mild steatosis. See comment. Performed By: #### S ####[facility]ORYCLIA [id number] [address] FINAL PERFORMING LAB Normal [facility] Comment on above: Order Comment: Speci men Type: TISSUE SPECIMENOrdering Facility: [facility] Address: [address] [place] [address] Result Comment: Diag nostic interpretation performed at [facility], [address] [place] [address] CLIA# [id number] Truck Hop: Mario Cotton M.D. Performed By: #### S ####[facility]ORYCLIA [id number] [address] GROSS DESCRIPTION A. GALLBLADDER Normal [facility] Comment on above: Order Comment: Valeria mayen Type: TISSUE SPECIMENOrdering Facility: [facility] Address: [address] [place] [address] Result Comment: Rece ived in formalin labeled gallbladder is a gallbladder measuring 8.5 x 4 x 3.2 cm. The serosal surface is purple smooth and glistening. Upon opening, the mucosal surface is brown and granular with longitudinal yellow flecks. The cystic duct is not impacted. However, multiple-brown granular friable calculi are identified within the specimen ranging in size from 0.1 to 0.8 cm. The calculi are admixed with thick green bile. No possible nodes identified near the cystic duct. Build Automation Engineer sections including the cystic duct and wall are submitted in A1. B. LIVER BIOPSY Received in formalin labeled liver biopsy is a round-flaherty soft tissue fragment measuring 0.6 x 0.4 x 0.3 cm. The specimen is submitted entirely in B1, intact. Gross examination performed at [facility], [address] [place] [address] CLIA#[id number] OLS July 06, 2023 9:37 AM Performed By: #### S ####[facility]ORYCLIA [id number] [place] [id number] [place] [facility] XR CHOLANGIOGRAM INTRAOPon 0 07-05-2023 XR CHOLANGIOGRAM INTRAOP * * *Final Report* * * DATE OF EXAM: Jul 05 2023 9:57AM [id number] - XR CHOLANGIOGRAM INTRAOP / PROCEDURE REASON: LAP GISELLA * * * * Physician Interpretation * * * * EXAMINATION: XR CHOLANGIOGRAM INTRAOP CLINICAL HISTORY: Cholelithiasis TECHNIQUE: 5 views of the right upper quadrant COMPARISON: Ultrasound of the right upper quadrant 06/28/2023 and priors RESULT: as impression IMPRESSION: Five fluoroscopic images were obtained during intraoperative cholangiogram. Multiple filling defects in the gallbladder reflecting cholelithiasis. No filling defects or stricture within the CBD, no central biliary ductal dilation. Maintained flow of contrast into the duodenum. Images were immediately available for the physician performing the procedure for surgical decision. Please refer to procedure report for further detail. Fluoroscopic Radiation Summary: Plane A, Air Kerma: 20.2 mGy Dose Area Product (DAP): Fluoro time: 0:28 min:sec In House Counsel: GABBY Transcribe Date/Time: Jul 06 2023 8:52A Dictated by : JANE CHAVEZ MD This examination was interpreted and the report reviewed and electronically signed by: JANE CHAVEZ MD on Jul 06 2023 8:53AM EST [id number] [facility] CNPSharri 07-04-2023 CNPN Telephone (AGGENS4) RONNIE KATZ ([id number]) 1970 [facility] Date Time Provider Department 07/04/23 GINNA AGARWAL4 During your visit today, we recorded the following information about you: Cecilia Koenig 07/04/2023 8:33 AM Signed Called LVM to inform patient that her surgery time has changed. She will need to arrive at 6:00a her surgery will start at 7:30a Allergies As of Date: 07/04/2023 Noted Allergy Reaction PROZAC (FLUOXETINE HCL) 07/14/2011 14 - Other: See Comments Comments: Aggressive behavior, emotional Date Reviewed: 07/01/2023 Reviewed by: Ginna Agarwal MD - Fully Assessed Reason for Visit: Patient Update [1234] Prescriptions as of 07/04/2023 - venlafaxine ER (EFFEXOR XR) 150 mg 24 hr capsule Take 1 capsule by mouth once daily. - venlafaxine ER (EFFEXOR XR) 75 mg 24 hr capsule Take 1 capsule by mouth once daily. - levothyroxine (SYNTHROID) 75 mcg tablet Take 1 tablet by mouth daily 5 days per week. Take 1.5 tablets by mouth daily 2 days per week. Take in the morning on an empty stomach. - traZODone (DESYREL) 50 mg tablet Take 1 tablet by mouth daily at bedtime. - furosemide (LASIX) 40 mg tablet Take 1 tablet by mouth twice daily - Calcium-Cholecalcifer ol, D3, 600 mg-10 mcg (400 unit) cap Take 1 capsule by mouth once daily. - pantoprazole DR (PROTONIX) 40 mg tablet Take 1 tablet by mouth once daily. - potassium chloride (K-TAB) 10 mEq tablet Take 1 tablet by mouth daily with breakfast. - budesonide-formoterol (SYMBICORT) 80-4.5 mcg/actuation inhaler Inhale 2 Puffs as instructed twice daily. - albuterol HFA (PROVENTIL HFA, VENTOLIN HFA) 90 mcg/actuation inhaler Inhale 2 Puffs as instructed every 4 hours as needed. - cholecalciferol (VITAMIN D3) 50 mcg (2,000 unit) tablet Take 1 tablet by mouth once daily. - loratadine (CLARITIN) 10 mg tablet Take 1 tablet by mouth once daily. - CPAP Initiate CPAP @ 10 cm of water with humidification. Mask (per patient preference) optional chin strap (if indicated) , filters, tubing, humidifier and lifetime supplies. - COMPOUNDED PRESCRIPTION CPAP Supplies; hose; mask DX: SHAINA - multivitamins(DAILY VITAMIN TAB) Take one(1) tablet daily. 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] 09/14/2007 Abdominal pain, lower [R10.30] 09/04/2009 07/14/2011 Menorrhagia [N92.0] 09/04/2009 07/14/2011 Enlarged uterus [N85.2] 10/22/2009 07/14/2011 Pelvic pain 10/22/2009 07/14/2011 Anxiety [F41.9] 07/19/2011 Panic attack [F41.0] 07/19/2011 Diastasis of rectus abdominis [M62.08] 12/11/2015 04/13/2017 Carpal tunnel syndrome, bilateral [G56.03] 07/23/2016 Gastroesophageal reflux disease without esophag*09/10/2016 Medication monitoring encounter [Z51.81] 09/13/2016 04/13/2017 SHAINA (obstructive sleep apnea) [G47.33] 04/13/2017 Mixed hyperlipidemia [E78.2] 04/25/2017 Obesity, Class II, BMI 35-39.9 [E66.9] 04/25/2017 10/30/2020 Diastasis of rectus abdominis [M62.08] 11/01/2017 Vitamin D deficiency [E55.9] 11/01/2017 Elevated fasting glucose [R73.01] 11/01/2017 Plantar fasciitis [M72.2] 11/01/2017 Belching [R14.2] 11/01/2017 Rhus dermatitis [L25.5] 11/01/2017 Mild intermittent asthma, uncomplicated [J45.20]05/19/2018 Environmental allergies [Z91.09] Persistent asthma without complication [J45.909]06/12/2018 Fatty liver [K76.0] 12/31/2019 HSV (herpes simplex virus) anogenital infection*1990 Obesity, Class III, BMI 40-49.9 (morbid obesity*10/01/2020 Leukocytoclastic vasculitis (HCC) [M31.0] 10/29/2020 Malaise and fatigue [R53.81, R53.83] 10/30/2020 Positive KRISTINE (antinuclear antibody) [R76.8] 10/30/2020 Arthralgia of right knee [M25.561] 10/30/2020 Myalgia [M79.10] 10/30/2020 Severe episode of recurrent major depressive di*10/30/2020 Anxiety with depression [F41.8] 10/31/2020 Encounter Status:Closed by CECILIA KOENIG on 07/04/23 [facility] NURSING PROGon 07-04-2023 NURSING PROG HNO ID: [id number] Author: GIOVANNY JAIMES APRN.FLANGING ROLL OPERATOR Service: General Surgery Author Type: Nurse Practitioner Type: Nursing Progress Note Filed: 07/04/2023 10:29 Note Text: Summary: PAT Spoke with Kala in surgery scheduling. HANDP will need done by surgeon. 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 [facility] No Panel Informationon 06-27 [facility] MG Breast Screeningon 2023 [facility] CNPNon 06-16-2023 CNPN Telephone (AGGENS4) STERLINGRONNIE ([id number]) 1970 F [place] Date Time Provider Department 06/16/23 GINNA AGARWAL4 During your visit today, we recorded the following information about you: Antionette Castillo MA 06/16/2023 2:05 PM Signed Patient is scheduled to have surgery with you on 07/04 to get her gallbladder removed. Wanted to know how much time she will need to take off work so she can get that requested off ahead of time? Thanks Antionette Abreu MA, MA 06/16/2023 2:49 PM Signed Patient notified of needing about a week off per . sent pt [employer] message with office fax number incase she needs it for paperwork for work Antionette Castillo MA Allergies As of Date: 06/16/2023 Noted Allergy Reaction PROZAC (FLUOXETINE HCL) 07/14/2011 14 - Other: See Comments Comments: Aggressive behavior, emotional Date Reviewed: 05/25/2023 Reviewed by: Ginna Agarwal MD - Fully Assessed Reason for Visit: Patient Question [1752] Prescriptions as of 06/16/2023 - venlafaxine ER (EFFEXOR XR) 150 mg 24 hr capsule Take 1 capsule by mouth once daily. - venlafaxine ER (EFFEXOR XR) 75 mg 24 hr capsule Take 1 capsule by mouth once daily. - levothyroxine (SYNTHROID) 75 mcg tablet Take 1 tablet by mouth daily 5 days per week. Take 1.5 tablets by mouth daily 2 days per week. Take in the morning on an empty stomach. - traZODone (DESYREL) 50 mg tablet Take 1 tablet by mouth daily at bedtime. - furosemide (LASIX) 40 mg tablet Take 1 tablet by mouth twice daily - Calcium-Cholecalcifer ol, D3, 600 mg-10 mcg (400 unit) cap Take 1 capsule by mouth once daily. - pantoprazole DR (PROTONIX) 40 mg tablet Take 1 tablet by mouth once daily. - potassium chloride (K-TAB) 10 mEq tablet Take 1 tablet by mouth daily with breakfast. - budesonide-formoterol (SYMBICORT) 80-4.5 mcg/actuation inhaler Inhale 2 Puffs as instructed twice daily. - albuterol HFA (PROVENTIL HFA, VENTOLIN HFA) 90 mcg/actuation inhaler Inhale 2 Puffs as instructed every 4 hours as needed. - cholecalciferol (VITAMIN D3) 50 mcg (2,000 unit) tablet Take 1 tablet by mouth once daily. - loratadine (CLARITIN) 10 mg tablet Take 1 tablet by mouth once daily. - CPAP Initiate CPAP @ 10 cm of water with humidification. Mask (per patient preference) optional chin strap (if indicated) , filters, tubing, humidifier and lifetime supplies. - COMPOUNDED PRESCRIPTION CPAP Supplies; hose; mask DX: SHAINA - multivitamins(DAILY VITAMIN TAB) Take one(1) tablet daily. 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] 09/14/2007 Abdominal pain, lower [R10.30] 09/04/2009 07/14/2011 Menorrhagia [N92.0] 09/04/2009 07/14/2011 Enlarged uterus [N85.2] 10/22/2009 07/14/2011 Pelvic pain 10/22/2009 07/14/2011 Anxiety [F41.9] 07/19/2011 Panic attack [F41.0] 07/19/2011 Diastasis of rectus abdominis [M62.08] 12/11/2015 04/13/2017 Carpal tunnel syndrome, bilateral [G56.03] 07/23/2016 Gastroesophageal reflux disease without esophag*09/10/2016 Medication monitoring encounter [Z51.81] 09/13/2016 04/13/2017 SHAINA (obstructive sleep apnea) [G47.33] 04/13/2017 Mixed hyperlipidemia [E78.2] 04/25/2017 Obesity, Class II, BMI 35-39.9 [E66.9] 04/25/2017 10/30/2020 Diastasis of rectus abdominis [M62.08] 11/01/2017 Vitamin D deficiency [E55.9] 11/01/2017 Elevated fasting glucose [R73.01] 11/01/2017 Plantar fasciitis [M72.2] 11/01/2017 Belching [R14.2] 11/01/2017 Rhus dermatitis [L25.5] 11/01/2017 Mild intermittent asthma, uncomplicated [J45.20]05/19/2018 Environmental allergies [Z91.09] Persistent asthma without complication [J45.909]06/12/2018 Fatty liver [K76.0] 12/31/2019 HSV (herpes simplex virus) anogenital infection*1990 Obesity, Class III, BMI 40-49.9 (morbid obesity*10/01/2020 Leukocytoclastic vasculitis (HCC) [M31.0] 10/29/2020 Malaise and fatigue [R53.81, R53.83] 10/30/2020 Positive KRISTINE (antinuclear antibody) [R76.8] 10/30/2020 Arthralgia of right knee [M25.561] 10/30/2020 Myalgia [M79.10] 10/30/2020 Severe episode of recurrent major depressive di*10/30/2020 Anxiety with depression [F41.8] 10/31/2020 Encounter Status:Closed by ANTIONETTE CASTILLO MA [facility]AGGENS[facility] RONNIE KATZ ([id number]) 1970 F [place] Date Time Provider Department 05/25/23 2:00 PM GINNA AGARWAL AGGENS4 During your visit today, we recorded the following information about you: Pulse Blood pressure Weight Height 93/minute 121/41 118.4 kg 1.626 m Ginna Agarwal MD 05/25/2023 2:57 PM Signed SURGICAL SERVICES HISTORY AND PHYSICAL EXAMINATION SERVICE DATE: 05/25/2023 SERVICE TIME: 2:34 PM PRIMARY CARE PHYSICIAN: Stanley Sweeney DO SUBJECTIVE CHIEF COMPLAINT: gallbladder issues HISTORY OF PRESENT ILLNESS: Ms. Katz is a 52 year old female with a PMH of diastasis rectus, depression, advanced hepatic fibrosis, asthma (inhaler rare and PRN), HLD, gallstones, obesity (BMI 44), SHAINA (CPAP) who presents for surgical consultation for gallstones. Surgical consultation was requested by the patient's referring physician, Dr. Irene Varela. A copy of this consultation note will be provided to the requesting physician(s) by way of shared medical record or letter via [place] mail. The patient has known gallstones. She was worked up with Dr. Irene Varela and ultimately referred to our clinic due to the patient's BMI of 44.80. The patient endorses several times weekly RUQ pain that does not always occur after eating. The pain occurs with nausea, but not emesis or other GI symptoms. She denies unexplained weight loss, but does have continued weight gain. She has multiple family members who have all undergone cholecystectomy Workup: - RUQ US (12/28/22): cholelithiasis. Hepatic steatosis. - CMP (01/2023): WNL except for elevated AST/ALT of 37/42 - MELD Na of 6 - ECHO (12/28/22): The left ventricle is normal in size. Left ventricular systolic function is normal. EF = 62 ? 5% (2D biplane) Grade I left ventricular diastolic dysfunction. - The right ventricle is normal in size. Right ventricular systolic function is normal. - There are no significant valvular abnormalities Social: denies use of tobacco, etoh, or illicit drugs. 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 Gallstones Genital herpes, unspecified 01/09/2007 HSV (herpes simplex virus) anogenital infection 1990 Hypercholesteremia 05/2015 Leukocytoclastic vasculitis (HCC) 2012 dx by Aliyah Wallace Onychomycosis SHAINA (obstructive sleep apnea) 04/13/2017 Persistent asthma without complication 06/12/2018 + JADA 06/2018, chronic cough, abnormal RAST. PAST SURGICAL HISTORY: PAST SURGICAL HISTORY Procedure Laterality Date APPENDECTOMY NEUROPLASTY AND/TRANSPOS MEDIAN NRV CARPAL TUNNE Right 09/13/2016 THYROID LEFT FINE NEEDLE ASPIRATION 08/02/07 U/ S FNA left thyroid nodule TOTAL THYROID LOBECTOMY UNI W/WO ISTHMUSECTOMY 08/31/07 LEFT VAGINAL HYSTERECTOMY UTERUS 250 GM/< 12/01/09 TVH for fibroid, menorrhagia, adenomyosis FAMILY HISTORY: FAMILY HISTORY Problem Relation Age of Onset other (FIBROMYALGIA) Mother Lipids Father Ischemic Heart Disease Father Heart Father GA has hole in heart Stroke Father Diabetes Father Stroke Maternal Grandmother Alzheimer's Disease Maternal Grandmother Psychiatry Maternal Grandmother DEMENTIA Breast Cancer Maternal Grandmother Diabetes Other pcousin Heart Sister Hole in heart Thyroid Sister Allergies No Family History Asthma No Family History SOCIAL HISTORY: Social History Tobacco Use Smoking status: Never Smokeless tobacco: Never Tobacco comments: No ETS in childhood or current home. Vaping Use Vaping Use: Never used Substance Use Topics Alcohol use: No Drug use: No MEDICATIONS: Current Outpatient Medications Medication Sig levothyroxine (SYNTHROID) 75 mcg tablet Take 1 tablet by mouth daily 5 days per week. Take 1.5 tablets by mouth daily 2 days per week. Take in the morning on an empty stomach. traZODone (DESYREL) 50 mg tablet Take 1 tablet by mouth daily at bedtime. furosemide (LASIX) 40 mg tablet Take 1 tablet by mouth twice daily Calcium-Cholecalcifer ol, D3, 600 mg-10 mcg (400 unit) cap Take 1 capsule by mouth once daily. pantoprazole DR (PROTONIX) 40 mg tablet Take 1 tablet by mouth once daily. potassium chloride (K-TAB) 10 mEq tablet Take 1 tablet by mouth daily with breakfast. albuterol HFA (PROVENTIL HFA, VENTOLIN HFA) 90 mcg/actuation inhaler Inhale 2 Puffs as instructed every 4 hours as needed. cholecalciferol (VITAMIN D3) 50 mcg (2,000 unit) tablet Take 1 tablet by mouth once daily. loratadine (CLARITIN) 10 mg tablet Take 1 tablet by mouth once daily. CPAP Initiate CPAP @ 10 cm of water with humidification. Mask (per patient preference) optional chin strap (if indicated) , f (more content not included)... [facility] 04-06-2023 [facility] Telephone (AGGENS4) RONNIE KATZ ([id number]) 1970 F [place] Date Time Provider Department 04/06/23 GINNA AGARWAL AGGENS4 During your visit today, we recorded the following information about you: Nayeli Arreguin 04/06/2023 10:13 AM Signed Called PT no answer LVM to call the office to [place] upcoming appt w/ Dr. Agarwal on 04/14/23. Allergies As of Date: 04/06/2023 Noted Allergy Reaction PROZAC (FLUOXETINE HCL) 07/14/2011 14 - Other: See Comments Comments: Aggressive behavior, emotional Date Reviewed: 03/07/2023 Reviewed by: Monserrat Amaya LPN - Fully Assessed Reason for Visit: Appointment [186] Prescriptions as of 04/06/2023 - furosemide (LASIX) 40 mg tablet Take 1 tablet by mouth twice daily - Calcium-Cholecalcifer ol, D3, 600 mg-10 mcg (400 unit) cap Take 1 capsule by mouth once daily. - pantoprazole DR (PROTONIX) 40 mg tablet Take 1 tablet by mouth once daily. - traZODone (DESYREL) 50 mg tablet Take 1 tablet by mouth daily at bedtime. - potassium chloride (K-TAB) 10 mEq tablet Take 1 tablet by mouth daily with breakfast. - venlafaxine ER (EFFEXOR XR) 150 mg 24 hr capsule Take 1 capsule by mouth once daily. - venlafaxine ER (EFFEXOR XR) 75 mg 24 hr capsule Take 1 capsule by mouth once daily. - levothyroxine (SYNTHROID) 75 mcg tablet Take 1 tablet by mouth daily 5 days per week. Take 1.5 tablets by mouth daily 2 days per week. Take in the morning on an empty stomach. - budesonide-formoterol (SYMBICORT) 80-4.5 mcg/actuation inhaler Inhale 2 Puffs as instructed twice daily. - albuterol HFA (PROVENTIL HFA, VENTOLIN HFA) 90 mcg/actuation inhaler Inhale 2 Puffs as instructed every 4 hours as needed. - cholecalciferol (VITAMIN D3) 50 mcg (2,000 unit) tablet Take 1 tablet by mouth once daily. - loratadine (CLARITIN) 10 mg tablet Take 1 tablet by mouth once daily. - Blood Pressure Monitor (BLOOD PRESSURE KIT) 1 Each once daily. - CPAP Initiate CPAP @ 10 cm of water with humidification. Mask (per patient preference) optional chin strap (if indicated) , filters, tubing, humidifier and lifetime supplies. - COMPOUNDED PRESCRIPTION CPAP Supplies; hose; mask DX: SHAINA - multivitamins(DAILY VITAMIN TAB) Take one(1) tablet daily. 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] 09/14/2007 Abdominal pain, lower [R10.30] 09/04/2009 07/14/2011 Menorrhagia [N92.0] 09/04/2009 07/14/2011 Enlarged uterus [N85.2] 10/22/2009 07/14/2011 Pelvic pain 10/22/2009 07/14/2011 Anxiety [F41.9] 07/19/2011 Panic attack [F41.0] 07/19/2011 Diastasis of rectus abdominis [M62.08] 12/11/2015 04/13/2017 Carpal tunnel syndrome, bilateral [G56.03] 07/23/2016 Gastroesophageal reflux disease without esophag*09/10/2016 Medication monitoring encounter [Z51.81] 09/13/2016 04/13/2017 SHAINA (obstructive sleep apnea) [G47.33] 04/13/2017 Mixed hyperlipidemia [E78.2] 04/25/2017 Obesity, Class II, BMI 35-39.9 [E66.9] 04/25/2017 10/30/2020 Diastasis of rectus abdominis [M62.08] 11/01/2017 Vitamin D deficiency [E55.9] 11/01/2017 Elevated fasting glucose [R73.01] 11/01/2017 Plantar fasciitis [M72.2] 11/01/2017 Belching [R14.2] 11/01/2017 Rhus dermatitis [L25.5] 11/01/2017 Mild intermittent asthma, uncomplicated [J45.20]05/19/2018 Environmental allergies [Z91.09] Persistent asthma without complication [J45.909]06/12/2018 Fatty liver [K76.0] 12/31/2019 HSV (herpes simplex virus) anogenital infection*1990 Obesity, Class III, BMI 40-49.9 (morbid obesity*10/01/2020 Leukocytoclastic vasculitis (HCC) [M31.0] 10/29/2020 Malaise and fatigue [R53.81, R53.83] 10/30/2020 Positive KRISTINE (antinuclear antibody) [R76.8] 10/30/2020 Arthralgia of right knee [M25.561] 10/30/2020 Myalgia [M79.10] 10/30/2020 Severe episode of recurrent major depressive di*10/30/2020 Anxiety with depression [F41.8] 10/31/2020 Encounter Status:Closed by KALLIEBOWENNAYELI on 04/06/23 [facility]AGGENS4[facility] RONNIE KATZ ([id number]) 1970 F Date Time Provider Department 04/01/23 GINNA AGARWAL4 During your visit today, we recorded the following information about you: Kallie Nayeli 04/01/2023 11:56 AM Signed LVM for PT to call back to [facility] appt brittney Agarwal on 04/14/23 Allergies As of Date: 04/01/2023 Noted Allergy Reaction PROZAC (FLUOXETINE HCL) 07/14/2011 14 - Other: See Comments Comments: Aggressive behavior, emotional Date Reviewed: 03/07/2023 Reviewed by: Monserrat Amaya LPN - Fully Assessed Reason for Visit: Appointment [186] Prescriptions as of 04/01/2023 - furosemide (LASIX) 40 mg tablet Take 1 tablet by mouth twice daily - Calcium-Cholecalcifer ol, D3, 600 mg-10 mcg (400 unit) cap Take 1 capsule by mouth once daily. - pantoprazole DR (PROTONIX) 40 mg tablet Take 1 tablet by mouth once daily. - traZODone (DESYREL) 50 mg tablet Take 1 tablet by mouth daily at bedtime. - potassium chloride (K-TAB) 10 mEq tablet Take 1 tablet by mouth daily with breakfast. - venlafaxine ER (EFFEXOR XR) 150 mg 24 hr capsule Take 1 capsule by mouth once daily. - venlafaxine ER (EFFEXOR XR) 75 mg 24 hr capsule Take 1 capsule by mouth once daily. - levothyroxine (SYNTHROID) 75 mcg tablet Take 1 tablet by mouth daily 5 days per week. Take 1.5 tablets by mouth daily 2 days per week. Take in the morning on an empty stomach. - budesonide-formoterol (SYMBICORT) 80-4.5 mcg/actuation inhaler Inhale 2 Puffs as instructed twice daily. - albuterol HFA (PROVENTIL HFA, VENTOLIN HFA) 90 mcg/actuation inhaler Inhale 2 Puffs as instructed every 4 hours as needed. - cholecalciferol (VITAMIN D3) 50 mcg (2,000 unit) tablet Take 1 tablet by mouth once daily. - loratadine (CLARITIN) 10 mg tablet Take 1 tablet by mouth once daily. - Blood Pressure Monitor (BLOOD PRESSURE KIT) 1 Each once daily. - CPAP Initiate CPAP @ 10 cm of water with humidification. Mask (per patient preference) optional chin strap (if indicated) , filters, tubing, humidifier and lifetime supplies. - COMPOUNDED PRESCRIPTION CPAP Supplies; hose; mask DX: SHAINA - multivitamins(DAILY VITAMIN TAB) Take one(1) tablet daily. 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] 09/14/2007 Abdominal pain, lower [R10.30] 09/04/2009 07/14/2011 Menorrhagia [N92.0] 09/04/2009 07/14/2011 Enlarged uterus [N85.2] 10/22/2009 07/14/2011 Pelvic pain 10/22/2009 07/14/2011 Anxiety [F41.9] 07/19/2011 Panic attack [F41.0] 07/19/2011 Diastasis of rectus abdominis [M62.08] 12/11/2015 04/13/2017 Carpal tunnel syndrome, bilateral [G56.03] 07/23/2016 Gastroesophageal reflux disease without esophag*09/10/2016 Medication monitoring encounter [Z51.81] 09/13/2016 04/13/2017 SHAINA (obstructive sleep apnea) [G47.33] 04/13/2017 Mixed hyperlipidemia [E78.2] 04/25/2017 Obesity, Class II, BMI 35-39.9 [E66.9] 04/25/2017 10/30/2020 Diastasis of rectus abdominis [M62.08] 11/01/2017 Vitamin D deficiency [E55.9] 11/01/2017 Elevated fasting glucose [R73.01] 11/01/2017 Plantar fasciitis [M72.2] 11/01/2017 Belching [R14.2] 11/01/2017 Rhus dermatitis [L25.5] 11/01/2017 Mild intermittent asthma, uncomplicated [J45.20]05/19/2018 Environmental allergies [Z91.09] Persistent asthma without complication [J45.909]06/12/2018 Fatty liver [K76.0] 12/31/2019 HSV (herpes simplex virus) anogenital infection*1990 Obesity, Class III, BMI 40-49.9 (morbid obesity*10/01/2020 Leukocytoclastic vasculitis (HCC) [M31.0] 10/29/2020 Malaise and fatigue [R53.81, R53.83] 10/30/2020 Positive KRISTINE (antinuclear antibody) [R76.8] 10/30/2020 Arthralgia of right knee [M25.561] 10/30/2020 Myalgia [M79.10] 10/30/2020 Severe episode of recurrent major depressive di*10/30/2020 Anxiety with depression [F41.8] 10/31/2020 Encounter Status:Closed by NAYELI ARREGUIN on 04/01/23 [facility] CNPN Telephone (AGGENS4) STERLINGRONNIE Aroldo ([id number]) 1970 F Date Time Provider Department 04/01/23 GINNA AGARWAL AGGENS4 During your visit today, we recorded the following information about you: Teresa-NurseFrancie 04/05/2023 1:18 PM Addendum Pt has been contacted multiple times about appointment and it has not been made. Attempts : 04/01 lvm (x2) , mychart 04/05 lvm , mychart , letter home Allergies As of Date: 04/01/2023 Noted Allergy Reaction PROZAC (FLUOXETINE HCL) 07/14/2011 14 - Other: See Comments Comments: Aggressive behavior, emotional Date Reviewed: 03/07/2023 Reviewed by: Monserrat Amaya LPN - Fully Assessed Reason for Visit: Appointment Rescheduled [1024] Cmt: Dr. Agarwal 04/14 Prescriptions as of 04/05/2023 - furosemide (LASIX) 40 mg tablet Take 1 tablet by mouth twice daily - Calcium-Cholecalcifer ol, D3, 600 mg-10 mcg (400 unit) cap Take 1 capsule by mouth once daily. - pantoprazole DR (PROTONIX) 40 mg tablet Take 1 tablet by mouth once daily. - traZODone (DESYREL) 50 mg tablet Take 1 tablet by mouth daily at bedtime. - potassium chloride (K-TAB) 10 mEq tablet Take 1 tablet by mouth daily with breakfast. - venlafaxine ER (EFFEXOR XR) 150 mg 24 hr capsule Take 1 capsule by mouth once daily. - venlafaxine ER (EFFEXOR XR) 75 mg 24 hr capsule Take 1 capsule by mouth once daily. - levothyroxine (SYNTHROID) 75 mcg tablet Take 1 tablet by mouth daily 5 days per week. Take 1.5 tablets by mouth daily 2 days per week. Take in the morning on an empty stomach. - budesonide-formoterol (SYMBICORT) 80-4.5 mcg/actuation inhaler Inhale 2 Puffs as instructed twice daily. - albuterol HFA (PROVENTIL HFA, VENTOLIN HFA) 90 mcg/actuation inhaler Inhale 2 Puffs as instructed every 4 hours as needed. - cholecalciferol (VITAMIN D3) 50 mcg (2,000 unit) tablet Take 1 tablet by mouth once daily. - loratadine (CLARITIN) 10 mg tablet Take 1 tablet by mouth once daily. - Blood Pressure Monitor (BLOOD PRESSURE KIT) 1 Each once daily. - CPAP Initiate CPAP @ 10 cm of water with humidification. Mask (per patient preference) optional chin strap (if indicated) , filters, tubing, humidifier and lifetime supplies. - COMPOUNDED PRESCRIPTION CPAP Supplies; hose; mask DX: SHAINA - multivitamins(DAILY VITAMIN TAB) Take one(1) tablet daily. 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] 09/14/2007 Abdominal pain, lower [R10.30] 09/04/2009 07/14/2011 Menorrhagia [N92.0] 09/04/2009 07/14/2011 Enlarged uterus [N85.2] 10/22/2009 07/14/2011 Pelvic pain 10/22/2009 07/14/2011 Anxiety [F41.9] 07/19/2011 Panic attack [F41.0] 07/19/2011 Diastasis of rectus abdominis [M62.08] 12/11/2015 04/13/2017 Carpal tunnel syndrome, bilateral [G56.03] 07/23/2016 Gastroesophageal reflux disease without esophag*09/10/2016 Medication monitoring encounter [Z51.81] 09/13/2016 04/13/2017 SHAINA (obstructive sleep apnea) [G47.33] 04/13/2017 Mixed hyperlipidemia [E78.2] 04/25/2017 Obesity, Class II, BMI 35-39.9 [E66.9] 04/25/2017 10/30/2020 Diastasis of rectus abdominis [M62.08] 11/01/2017 Vitamin D deficiency [E55.9] 11/01/2017 Elevated fasting glucose [R73.01] 11/01/2017 Plantar fasciitis [M72.2] 11/01/2017 Belching [R14.2] 11/01/2017 Rhus dermatitis [L25.5] 11/01/2017 Mild intermittent asthma, uncomplicated [J45.20]05/19/2018 Environmental allergies [Z91.09] Persistent asthma without complication [J45.909]06/12/2018 Fatty liver [K76.0] 12/31/2019 HSV (herpes simplex virus) anogenital infection*1990 Obesity, Class III, BMI 40-49.9 (morbid obesity*10/01/2020 Leukocytoclastic vasculitis (HCC) [M31.0] 10/29/2020 Malaise and fatigue [R53.81, R53.83] 10/30/2020 Positive KRISTINE (antinuclear antibody) [R76.8] 10/30/2020 Arthralgia of right knee [M25.561] 10/30/2020 Myalgia [M79.10] 10/30/2020 Severe episode of recurrent major depressive di*10/30/2020 Anxiety with depression [F41.8] 10/31/2020 Encounter Status:Closed by TERESA-FRANCIE GREGORIO on 04/01/23 [facility] Aimee 03-09-2023 KRISTINE Telephone (AGGENS4) STERLINGRONNIE Kendrick ([id number]) 1970 F Date Time Provider Department 03/09/23 GINNA AGARWAL During your visit today, we recorded the following information about you: Nayeli Arreguin 03/09/2023 1:51 PM Signed PT LVM @ 12:50pm requesting to CN today's appt. Explain in VM that she has a family emergency and she will not be able to come in today. Called back PT no answer LVM to call back to [facility] and JOE today's appt w/ Dr. Agarwal. Allergies As of Date: 03/09/2023 Noted Allergy Reaction PROZAC (FLUOXETINE HCL) 07/14/2011 14 - Other: See Comments Comments: Aggressive behavior, emotional Date Reviewed: 03/07/2023 Reviewed by: Monserrat Davey - Fully Assessed Reason for Visit: Returning Patient's Call [[id number]] Prescriptions as of 03/09/2023 - furosemide (LASIX) 40 mg tablet Take 1 tablet by mouth twice daily - Calcium-Cholecalcifer ol, D3, 600 mg-10 mcg (400 unit) cap Take 1 capsule by mouth once daily. - pantoprazole DR (PROTONIX) 40 mg tablet Take 1 tablet by mouth once daily. - traZODone (DESYREL) 50 mg tablet Take 1 tablet by mouth daily at bedtime. - potassium chloride (K-TAB) 10 mEq tablet Take 1 tablet by mouth daily with breakfast. - venlafaxine ER (EFFEXOR XR) 150 mg 24 hr capsule Take 1 capsule by mouth once daily. - venlafaxine ER (EFFEXOR XR) 75 mg 24 hr capsule Take 1 capsule by mouth once daily. - levothyroxine (SYNTHROID) 75 mcg tablet Take 1 tablet by mouth daily 5 days per week. Take 1.5 tablets by mouth daily 2 days per week. Take in the morning on an empty stomach. - budesonide-formoterol (SYMBICORT) 80-4.5 mcg/actuation inhaler Inhale 2 Puffs as instructed twice daily. - albuterol HFA (PROVENTIL HFA, VENTOLIN HFA) 90 mcg/actuation inhaler Inhale 2 Puffs as instructed every 4 hours as needed. - cholecalciferol (VITAMIN D3) 50 mcg (2,000 unit) tablet Take 1 tablet by mouth once daily. - loratadine (CLARITIN) 10 mg tablet Take 1 tablet by mouth once daily. - Blood Pressure Monitor (BLOOD PRESSURE KIT) 1 Each once daily. - CPAP Initiate CPAP @ 10 cm of water with humidification. Mask (per patient preference) optional chin strap (if indicated) , filters, tubing, humidifier and lifetime supplies. - COMPOUNDED PRESCRIPTION CPAP Supplies; hose; mask DX: SHAINA - multivitamins(DAILY VITAMIN TAB) Take one(1) tablet daily. 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] 09/14/2007 Abdominal pain, lower [R10.30] 09/04/2009 07/14/2011 Menorrhagia [N92.0] 09/04/2009 07/14/2011 Enlarged uterus [N85.2] 10/22/2009 07/14/2011 Pelvic pain 10/22/2009 07/14/2011 Anxiety [F41.9] 07/19/2011 Panic attack [F41.0] 07/19/2011 Diastasis of rectus abdominis [M62.08] 12/11/2015 04/13/2017 Carpal tunnel syndrome, bilateral [G56.03] 07/23/2016 Gastroesophageal reflux disease without esophag*09/10/2016 Medication monitoring encounter [Z51.81] 09/13/2016 04/13/2017 SHAINA (obstructive sleep apnea) [G47.33] 04/13/2017 Mixed hyperlipidemia [E78.2] 04/25/2017 Obesity, Class II, BMI 35-39.9 [E66.9] 04/25/2017 10/30/2020 Diastasis of rectus abdominis [M62.08] 11/01/2017 Vitamin D deficiency [E55.9] 11/01/2017 Elevated fasting glucose [R73.01] 11/01/2017 Plantar fasciitis [M72.2] 11/01/2017 Belching [R14.2] 11/01/2017 Rhus dermatitis [L25.5] 11/01/2017 Mild intermittent asthma, uncomplicated [J45.20]05/19/2018 Environmental allergies [Z91.09] Persistent asthma without complication [J45.909]06/12/2018 Fatty liver [K76.0] 12/31/2019 HSV (herpes simplex virus) anogenital infection*1990 Obesity, Class III, BMI 40-49.9 (morbid obesity*10/01/2020 Leukocytoclastic vasculitis (HCC) [M31.0] 10/29/2020 Malaise and fatigue [R53.81, R53.83] 10/30/2020 Positive KRISTINE (antinuclear antibody) [R76.8] 10/30/2020 Arthralgia of right knee [M25.561] 10/30/2020 Myalgia [M79.10] 10/30/2020 Severe episode of recurrent major depressive di*10/30/2020 Anxiety with depression [F41.8] 10/31/2020 Encounter Status:Closed by NAYELI ARREGUIN on 03/09/23 [facility] COLONOSCOPY SCREENINGon - [facility] MRI FOOT/TOES WO IVCON LEFTo n 02-03-2023 [facility] ECHOon 12-28-2022 CONCLUSIONS: - Technically difficult exam due to body habitus. - Exam indication: Shortness of Breath - The left ventricle is normal in size. Left ventricular systolic function is normal. EF = 62 5% (2D biplane) Grade I left ventricular diastolic dysfunction. - The right ventricle is normal in size. Right ventricular systolic function is normal. - There are no significant valvular abnormalities. - Exam was compared with the prior echocardiographic exam performed on 10/09/2020, no significant change. * * * Final * * * [facility] Ech[facility] Report: Transthoracic Echo [facility] Date of service: 12/28/2022 2:59:28 PM WORKER Ordering physician: STANLEY SWEENEY Indication: Shortness of Breath Technologist: Shireen Maharaj [facility] Interpreting physician: Cristobal Reynoso MD PATIENT: Name: MRS. RONNIE KATZ : 1970 Age: 52 years Gender: F History of dyslipidemia. Primary rhythm: sinus. Height: 162.00 cm BSA: 2.33 m Weight: 120.20 kg BMI: 45.8 kg/m Heart rate 83 bpm Technically difficult exam due to body habitus. Color Doppler was utilized to interrogate the cardiac valves assessed and spectral Doppler was utilized to determine the flow velocities and pressure gradients reported in this exam. Myocardial strain analysis was performed in this exam to aid in the assessment of cardiac function. MEASUREMENTS: Value Indexed Normal Max aortic dimension 3.2 cm Ao < 3.8 Left atrial volume 42 ml (4ch A-L) 18 ml/m Ирина <= 34 LV ID (diastole) 4.0 cm (2D) 1.73 cm/m LV ID (systole) 2.7 cm (2D) 1.18 cm/m IVS, leaflet tips 1.1 cm (2D) Posterior wall thickness 1.0 cm (2D) Left ventricular mass 138 g (2D) 59 g/m Global peak long strain -18.0 % LV stroke volume 65 ml (2D biplane) LV end diastolic volume 104 ml (2D biplane) 44.8 ml/m 29<=EDVi<62 LV end systolic volume 40 ml (2D biplane) 17.0 ml/m Ejection Fraction 62 % (2D biplane) EF > 54 FINDINGS: LEFT VENTRICLE The left ventricle is normal in size. Left ventricular systolic function is normal. Global LV myocardial strain is normal. Grade I left ventricular diastolic dysfunction. Mitral annular lateral E/e': 6.5. Mitral annular septal E/e': 9.4. Wall Motion: All scored segments are normal. RIGHT VENTRICLE The right ventricle is normal in size. Right ventricular systolic function is normal. RV systolic tissue Doppler velocity is 12.0 cm/s. Estimated right ventricular systolic pressure is likely underestimated due to a weak or incomplete tricuspid regurgitation signal and is, at least, 38 mmHg consistent with mild pulmonary hypertension. Estimated right atrial pressure is 3 mmHg (although IVC not seen). LEFT ATRIUM The left atrial cavity is normal in size. RIGHT ATRIUM The right atrial cavity is normal in size. MITRAL VALVE The mitral valve leaflets are structurally normal. There is no mitral valve regurgitation. The pressure half time is 61 msec. The peak mitral E/A ratio is 0.86. The average mitral E/e' ratio is 8.0. The mitral flow deceleration time is 211 msec. TRICUSPID VALVE The tricuspid valve leaflets are structurally normal. There is trace (trace - 1+) tricuspid valve regurgitation. AORTIC VALVE The aortic valve cusps are structurally normal. There is no aortic valve regurgitation. Tricuspid aortic valve. The peak gradient is 14 mmHg (peak velocity = 189.5 cm/s). PULMONIC VALVE The pulmonic valve cusps are structurally normal. There is trace pulmonic valve regurgitation. AORTA The visualized aorta is normal in size. Measurements - Mid ascending aorta 3.2 cm. PERICARDIUM There is no pericardial effusion. There is an epicardial fat pad. [facility] No Panel Informationon 12-28 [facility] XR CHEST 2V FRONTAL/LATon [facility] XR Chest PA and Lateralon IMPRESSION: No acute radiographic abnormality. In House Counsel: GABBY Transcribe Date/Time: Dec 20 2022 7:04P Dictated by : ROXANNE RODRIGES MD This examination was interpreted and the report reviewed and electronically signed by: ROXANNE RODRIGES MD on Dec 20 2022 7:05PM [facility] DIVISION OF RADIOLOGY * * *Final Report* * * DATE OF EXAM: Dec 20 2022 7:03PM WOX 5291 - XR CHEST 2V FRONTAL/LAT / PROCEDURE REASON: Acute cough * * * * Physician Interpretation * * * * EXAMINATION: CHEST RADIOGRAPH (2 VIEW FRONTAL & LATERAL) CLINICAL HISTORY: Acute cough MQ: XC2_6 EXAM DATE/TIME: 12/20/2022 7:03 PM COMPARISON: 12/15/2022 and 06/05/2019 RESULT: Lines, tubes, and devices: None. Lungs and pleura: No consolidation. No lung mass. No pleural effusion. No pneumothorax. Cardiomediastinal silhouette: Normal cardiomediastinal silhouette. Bones and soft tissues: Unremarkable. DIVISION OF RADIOLOGY Provider, Fidencio Urban - 12/20/2022 * * *Final Report* * * DATE OF EXAM: Dec 20 2022 7:03PM WOX 5291 - XR CHEST 2V FRONTAL/LAT / PROCEDURE REASON: Acute cough * * * * Physician Interpretation * * * * EXAMINATION: CHEST RADIOGRAPH (2 VIEW FRONTAL & LATERAL) CLINICAL HISTORY: Acute cough MQ: XC2_6 EXAM DATE/TIME: 12/20/2022 7:03 PM COMPARISON: 12/15/2022 and 06/05/2019 RESULT: Lines, tubes, and devices: None. Lungs and pleura: No consolidation. No lung mass. No pleural effusion. No pneumothorax. Cardiomediastinal silhouette: Normal cardiomediastinal silhouette. Bones and soft tissues: Unremarkable. IMPRESSION IMPRESSION: No acute radiographic abnormality. In House Counsel: GABBY Transcribe Date/Time: Dec 20 2022 7:04P Dictated by : ROXANNE RODRIGES MD This examination was interpreted and the report reviewed and electronically signed by: ROXANNE RODRIGES MD on Dec 20 2022 7:05PM EST [facility] Radiology Study observation (narrative) [facility] XR Chest PA and LateralOrder ed By: Ccf Provider on 12-20-2022 [facility] MAGNESIUM [facility] 12-16-2022 Magnesium [Mass/Vol] 2.0 mg/dL 1.7 - 2 .3 mg/dL [facility] TSH [facility] 12-16-2022 TSH Qn 2.400 m[IU]/L 0.270 - 4.200 mIU/L [facility] XR Foot - bilateral AP and L ateral and obliqueon 12-16-2022 IMPRESSION: No acute osseous abnormality. Other findings as described. In House Counsel: GABBY Transcribe Date/Time: Dec 16 2022 1:19P Dictated by : AYLA GARNICA DO This examination was interpreted and the report reviewed and electronically signed by: AYLA GARNICA DO on Dec 16 2022 1:24PM [facility] DIVISION OF RADIOLOGY * * *Final Report* * * DATE OF EXAM: Dec 15 2022 10:44AM WOX 5555 - XR FOOT 3V AP/LAT/OBL PANDA / PROCEDURE REASON: multiple diagnoses * * * * Physician Interpretation * * * * EXAMINATION: XR FOOT 3V AP/LAT/OBL PANDA PATIENT/TECHNOLOGIST PROVIDED HISTORY: for a month in the left foot pain plantar side distal 2-3rd MT and medial side of heel, right foot just started no inj CLINICAL INFORMATION: 52 years old Female with Foot pain, bilateral. Bilateral cold feet. TECHNIQUE: XR FOOT 3V AP/LAT/OBL PANDA Laterality: BILATERAL Number of different views (projections): 3 views of each foot COMPARISON: Radiographs 12/06/2018 RESULT: Right foot: No fracture. Minimal degenerative change 1st MTP joint. Joint spaces are otherwise maintained. Pes planus. Small plantar calcaneal spur. Left foot: No fracture. Minimal degenerative change 1st MTP joint. Joint spaces are otherwise maintained. Pes planus. Tiny calcaneal spurs. DIVISION OF RADIOLOGY Provider, [facility] * * *Final Report* * * DATE OF EXAM: Dec 15 2022 10:44AM WOX 5555 - XR FOOT 3V AP/LAT/OBL PANDA / PROCEDURE REASON: multiple diagnoses * * * * Physician Interpretation * * * * EXAMINATION: XR FOOT 3V AP/LAT/OBL PANDA PATIENT/TECHNOLOGIST PROVIDED HISTORY: for a month in the left foot pain plantar side distal 2-3rd MT and medial side of heel, right foot just started no inj CLINICAL INFORMATION: 52 years old Female with Foot pain, bilateral. Bilateral cold feet. TECHNIQUE: XR FOOT 3V AP/LAT/OBL PANDA Laterality: BILATERAL Number of different views (projections): 3 views of each foot COMPARISON: Radiographs 12/06/2018 RESULT: Right foot: No fracture. Minimal degenerative change 1st MTP joint. Joint spaces are otherwise maintained. Pes planus. Small plantar calcaneal spur. Left foot: No fracture. Minimal degenerative change 1st MTP joint. Joint spaces are otherwise maintained. Pes planus. Tiny calcaneal spurs. IMPRESSION IMPRESSION: No acute osseous abnormality. Other findings as described. In House Counsel: GABBY Transcribe Date/Time: Sep 7 2023 1:19P Dictated by : AYLA GARNICA DO This examination was interpreted and the report reviewed and electronically signed by: AYLA GARNICA DO on Dec 16 2022 1:24PM EST [facility] XR Foot - bilateral AP and L ateral and obliqueOrdered By: Ccf Provider on 12-16-2022 [facility] CBC panel Auto (Bld)on 12-15 Erythrocyte distribution width (RBC) [Ratio] 12.9 % 11.5 - 15.0 % [facility] Hematocrit (Bld) [Volume fraction] 43.0 % 36.0 - 46.0 % [facility] Hemoglobin (Bld) [Mass/Vol] 14.3 g/dL 11.5 - 15.5 g/dL [facility] MCH (RBC) [Entitic mass] 29.9 pg 26.0 - 34.[address] [facility] MCHC (RBC) [Mass/Vol] 33.3 g/dL 30.5 - 36.0 g/dL [facility] MCV (RBC) [Entitic vol] 89.8 fL 80.0 - 100.[address] [facility] Nucleated RBC (Bld) [#/Vol] <0.01 k/uL [facility] Platelet mean volume (Bld) [Entitic vol] 8.8 fL Low 9.0 - 12.[address] [facility] Platelets (Bld) [#/Vol] 295 10*3/uL 150 - 400 k/uL [facility] RBC (Bld) [#/Vol] 4.79 10*6/uL 3.90 - 5.2 0 m/uL [facility] WBC (Bld) [#/Vol] 8.40 10*3/uL 3.70 - 11. 00 k/uL [facility] Comprehensive metabolic 2000 panelon 12-15-2022 Albumin [Mass/Vol] 4.6 g/dL 3.9 - 4.9 g/dL [facility] ALP [Catalytic activity/Vol] 79 U/L 34 - 123 U/L [facility] ALT [Catalytic activity/Vol] 51 U/L High 7 - 38 U/L [facility] Anion gap [Moles/Vol] 13 mmol/L 9 - 18 mmol/L [facility] AST [Catalytic activity/Vol] 43 U/L High 13 - 35 U/L [facility] Bilirubin [Mass/Vol] 0.3 mg/dL 0.2 - 1 .3 mg/dL [facility] Calcium [Mass/Vol] 10.1 mg/dL 8.5 - 10. 2 mg/dL [facility] Chloride [Moles/Vol] 100 mmol/L 97 - 10 5 mmol/L [facility] CO2 [Moles/Vol] 27 mmol/L 22 - 30 mmol/L [facility] Creatinine [Mass/Vol] 0.96 mg/dL 0.58 - 0.96 mg/dL [facility] Estimated Glomerular Filtration Rate 71 mL/min/1.73m >=60 mL/min/1.73m [facility] Glucose [Mass/Vol] 85 mg/dL 74 - 99 mg/dL [facility] Potassium [Moles/Vol] 4.3 mmol/L 3.7 - 5.1 mmol/L [facility] Protein [Mass/Vol] 7.8 g/dL 6.3 - 8.0 g/dL [facility] Sodium [Moles/Vol] 140 mmol/L 136 - 144 mmol/L [facility] Urea nitrogen [Mass/Vol] 15 mg/dL 7 - 21 mg/dL [facility] HbA1c (Bld)on 12-15-2022 Average glucose Estimated from glycated hemoglobin (Bld) [Mass/Vol] 108 mg/dL [facility] HbA1c (Bld) [Mass fraction] 5.4 % 4.3 - 5.6 % [facility] Lipid 1996 panelon 3 Cholesterol [Mass/Vol] 199 mg/dL <200 mg/dL [facility] Cholesterol in HDL [Mass/Vol] 48 mg/dL >39 mg/dL [facility] Cholesterol in LDL [Mass/Vol] 119 mg/dL High <100 mg/dL [facility] Cholesterol in LDL/Cholesterol in HDL [Mass ratio] 2.48 {ratio} <2.54 [facility] Cholesterol in VLDL [Mass/Vol] 32 mg/dL High <30 mg/dL [facility] Cholesterol non HDL [Mass/Vol] 151 mg/dL High <130 mg/dL [facility] Cholesterol.total/Chol esterol in HDL [Mass ratio] 4.15 {ratio} <5.10 [facility] Fasting Time [address] [facility] Triglyceride [Mass/Vol] 160 mg/dL High <150 mg/dL [facility] No Panel Informationon 12-15 Radiology Study observation (narrative) [facility] T3 BLDon 12-15-2022 T3 [Mass/Vol] 177 ng/dL High 79 - 165 ng/dL [facility] T4 FREE/FREE THYROXon 2022 Free T4 [Mass/Vol] 0.9 ng/dL 0.9 - 1.7 ng/dL [facility] XR CHEST 2V FRONTAL/LATon [facility] XR Chest PA and Lateralon IMPRESSION: Atelectasis or fibrosis in the lingula is stable In House Counsel: GABBY Transcribe Date/Time: Dec 15 2022 2:42P Dictated by : JUAREZ PARKINSON MD This examination was interpreted and the report reviewed and electronically signed by: JUAREZ PARKINSON MD on Dec 15 2022 2:44PM [facility] DIVISION OF RADIOLOGY * * *Final Report* * * DATE OF EXAM: Dec 15 2022 10:44AM WOX 5291 - XR CHEST 2V FRONTAL/LAT / PROCEDURE REASON: SOB (shortness of breath) on exertion * * * * Physician Interpretation * * * * EXAMINATION: CHEST RADIOGRAPH (2 VIEW FRONTAL & LATERAL) CLINICAL HISTORY: SOB (shortness of breath) on exertion MQ: XC2_6 EXAM DATE/TIME: 12/15/2022 10:44 AM COMPARISON: 10/01/2020 and 06/05/2019 RESULT: Lines, tubes, and devices: None. Lungs and pleura: No consolidation. No lung mass. No pleural effusion. No pneumothorax. Atelectasis or fibrosis in the lingula is stable Cardiomediastinal silhouette: Normal cardiomediastinal silhouette. Bones and soft tissues: Unremarkable. DIVISION OF RADIOLOGY Provider, [facility] - 12/15/2022 * * *Final Report* * * DATE OF EXAM: Dec 15 2022 10:44AM WOX 5291 - XR CHEST 2V FRONTAL/LAT / PROCEDURE REASON: SOB (shortness of breath) on exertion * * * * Physician Interpretation * * * * EXAMINATION: CHEST RADIOGRAPH (2 VIEW FRONTAL & LATERAL) CLINICAL HISTORY: SOB (shortness of breath) on exertion MQ: XC2_6 EXAM DATE/TIME: 12/15/2022 10:44 AM COMPARISON: 10/01/2020 and 06/05/2019 RESULT: Lines, tubes, and devices: None. Lungs and pleura: No consolidation. No lung mass. No pleural effusion. No pneumothorax. Atelectasis or fibrosis in the lingula is stable Cardiomediastinal silhouette: Normal cardiomediastinal silhouette. Bones and soft tissues: Unremarkable. IMPRESSION IMPRESSION: Atelectasis or fibrosis in the lingula is stable In House Counsel: [facility] Transcribe Date/Time: Dec 15 2022 2:42P Dictated by : JUAREZ PARKINSON MD This examination was interpreted and the report reviewed and electronically signed by: JUAREZ PARKINSON MD on Dec 15 2022 2:44PM [facility] XR ABDOMEN 1V SUPINEon 07-02 [facility] XR Abdomen Supine and Uprigh ton 07-02-2022 IMPRESSION: Nonobstructive bowel gas pattern. In House Counsel: [facility] Transcribe Date/Time: Jul 02 2022 10:43A Dictated by : ABBY VAZQUEZ MD This examination was interpreted and the report reviewed and electronically signed by: ABBY VAZQUEZ MD on Jul 02 2022 10:45AM [facility] DIVISION OF RADIOLOGY * * *Final Report* * * DATE OF EXAM: Jul 02 2022 10:41AM WOX [id number] - XR ABDOMEN 1V SUPINE / PROCEDURE REASON: Acute constipation * * * * Physician Interpretation * * * * EXAM TITLE: XR ABDOMEN 1V SUPINE EXAM DATE/TIME: 07/02/2022 10:41 AM COMPARISON: None. CLINICAL INDICATION/HISTORY: Acute constipation. TECHNIQUE: AP views of the abdomen are presented. FINDINGS: No abnormally dilated bowel loops identified. Small amount of stool and gas demonstrated in the large bowel loops. There are a few phleboliths in pelvis. The bony structures appear intact. DIVISION OF RADIOLOGY Provider, Crystal Kourtney Urban - 07/02/2022 * * *Final Report* * * DATE OF EXAM: Jul 02 2022 10:41AM WOX [id number] - XR ABDOMEN 1V SUPINE / PROCEDURE REASON: Acute constipation * * * * Physician Interpretation * * * * EXAM TITLE: XR ABDOMEN 1V SUPINE EXAM DATE/TIME: 07/02/2022 10:41 AM COMPARISON: None. CLINICAL INDICATION/HISTORY: Acute constipation. TECHNIQUE: AP views of the abdomen are presented. FINDINGS: No abnormally dilated bowel loops identified. Small amount of stool and gas demonstrated in the large bowel loops. There are a few phleboliths in pelvis. The bony structures appear intact. IMPRESSION IMPRESSION: Nonobstructive bowel gas pattern. In House Counsel: GABBY Transcribe Date/Time: Jul 02 2022 10:43A Dictated by : ABBY VAZQUEZ MD This examination was interpreted and the report reviewed and electronically signed by: ABBY VAZQUEZ MD on Jul 02 2022 10:45AM EST [facility] Radiology Study observation (narrative) [facility] XR Abdomen Supine and Uprigh tOrdered By: Ccf Provider on 07-02-2022 [facility] JARETH SCREENINGon 05-17-2022 [facility] SPIROMETRY - BASELINE AND PO ST DILATORon 05-17-2022 [id number]% POST (L/S) 1.53 L/S [facility] [id number]% PRE (L/S) 2.17 L/S [facility] FEV1 PRE (L) 2.[address] [facility] FEV1/FVC POST (%) 82 % [facility] FEV1/FVC PRE (%) 79 % [facility] FEV1_POST (L) 2.[address] [facility] FVC POST (L) 2.[address] [facility] FVC PRE (L) 2.[address] [facility] PEF POST (L/S) 5.97 L/S [facility] PEF PRE (L/S) 5.91 L/S [facility] STREP A MOLECULAR (POC)on Procedural Control Valid [facility] Strep A (POCT) Negative Negative [facility] XR Knee - left 4 Viewson IMPRESSION: Unremarkable left knee x-ray. In House Counsel: GABBY Transcribe Date/Time: Mar 06 2021 1:34P Dictated by : ABBY VAZQUEZ MD This examination was interpreted and the report reviewed and electronically signed by: ABBY VAZQUEZ MD on Mar 06 2021 1:37PM [facility] DIVISION OF RADIOLOGY * * *Final Report* * * DATE OF EXAM: Mar 06 2021 1:30PM WOX 5202 - XR KNEE 4V AP/PA BOTH+LAT/TERRANCE LT / PROCEDURE REASON: Acute pain of left knee * * * * Physician Interpretation * * * * EXAM TITLE: XR KNEE 4V AP/PA BOTH+LAT/TERRANCE LT EXAM DATE/TIME: 03/06/2021 1:30 PM COMPARISON: X-ray knee on 10/26/2019. CLINICAL INDICATION/HISTORY: Acute knee pain. TECHNIQUE: AP/PA, lateral and sunrise views of the left knee are presented. FINDINGS: No acute fractures or subluxations are noted. No obvious osteophyte formation. The joint spaces are well preserved. There is no evidence of joint effusion. The mineralization of the bones is normal. There is no significant soft tissue swelling. DIVISION OF RADIOLOGY Provider, Fidencio Ocon[facility] - 03/06/2021 * * *Final Report* * * DATE OF EXAM: Mar 06 2021 1:30PM WOX 5202 - XR KNEE 4V AP/PA BOTH+LAT/TERRANCE LT / PROCEDURE REASON: Acute pain of left knee * * * * Physician Interpretation * * * * EXAM TITLE: XR KNEE 4V AP/PA BOTH+LAT/TERRANCE LT EXAM DATE/TIME: 03/06/2021 1:30 PM COMPARISON: X-ray knee on 10/26/2019. CLINICAL INDICATION/HISTORY: Acute knee pain. TECHNIQUE: AP/PA, lateral and sunrise views of the left knee are presented. FINDINGS: No acute fractures or subluxations are noted. No obvious osteophyte formation. The joint spaces are well preserved. There is no evidence of joint effusion. The mineralization of the bones is normal. There is no significant soft tissue swelling. IMPRESSION IMPRESSION: Unremarkable left knee x-ray. In House Counsel: GABBY Transcribe Date/Time: Mar 06 2021 1:34P Dictated by : ABBY VAZQUEZ MD This examination was interpreted and the report reviewed and electronically signed by: ABBY VAZQUEZ MD on Mar 06 2021 1:37PM [facility] Radiology Study observation (narrative) [facility] XR Knee - left 4 ViewsOrdere d By: Ccf Provider on 03-06-2021 [facility] XR Knee - right AP and Later ren 10-29-2020 IMPRESSION: Negative 2 views of the right knee. In House Counsel: GABBY Transcribe Date/Time: Oct 29 2020 10:21A Dictated by : ABBY VAZQUEZ MD This examination was interpreted and the report reviewed and electronically signed by: ABBY VAZQUEZ MD on Oct 29 2020 10:22AM [facility] DIVISION OF RADIOLOGY * * *Final Report* * * DATE OF EXAM: Oct 29 2020 10:18AM WOX 5207 - XR KNEE 2V AP/LAT RT / PROCEDURE REASON: Arthralgia of right knee * * * * Physician Interpretation * * * * EXAM TITLE: XR KNEE 2V AP/LAT RT EXAM DATE/TIME: 10/29/2020 10:18 AM COMPARISON: None. CLINICAL INDICATION/HISTORY: Right knee pain. TECHNIQUE: AP and lateral views of the right knee are presented. FINDINGS: No fractures or subluxations are noted. No obvious osteophyte formation. The joint spaces are well preserved. There is no evidence of joint effusion. The mineralization of the bones is normal. There is no significant soft tissue swelling. DIVISION OF RADIOLOGY Provider, [facility] - 10/29/2020 * * *Final Report* * * DATE OF EXAM: Oct 29 2020 10:18AM WOX 5207 - XR KNEE 2V AP/LAT RT / PROCEDURE REASON: Arthralgia of right knee * * * * Physician Interpretation * * * * EXAM TITLE: XR KNEE 2V AP/LAT RT EXAM DATE/TIME: 10/29/2020 10:18 AM COMPARISON: None. CLINICAL INDICATION/HISTORY: Right knee pain. TECHNIQUE: AP and lateral views of the right knee are presented. FINDINGS: No fractures or subluxations are noted. No obvious osteophyte formation. The joint spaces are well preserved. There is no evidence of joint effusion. The mineralization of the bones is normal. There is no significant soft tissue swelling. IMPRESSION IMPRESSION: Negative 2 views of the right knee. In House Counsel: GABBY Transcribe Date/Time: Oct 29 2020 10:21A Dictated by : ABBY VAZQUEZ MD This examination was interpreted and the report reviewed and electronically signed by: ABBY VAZQUEZ MD on Oct 29 2020 10:22AM [facility] Radiology Study observation (narrative) [facility] XR Knee - right AP and Later alOrdered By: Ccf Provider on 10-29-2020 [facility] XR Chest PA and Lateralon IMPRESSION: No acute radiographic abnormality. In House Counsel: GABBY Transcribe Date/Time: Oct 01 2020 10:18A Dictated by : MASON FELICIANO MD This examination was interpreted and the report reviewed and electronically signed by: MASON FELICIANO MD on Oct 01 2020 10:20AM [facility] DIVISION OF RADIOLOGY * * *Final Report* * * DATE OF EXAM: Oct 01 2020 10:12AM WOX 5291 - XR CHEST 2V FRONTAL/LAT / PROCEDURE REASON: SOB (shortness of breath) * * * * Physician Interpretation * * * * EXAMINATION: CHEST RADIOGRAPH (2 VIEW FRONTAL & LATERAL) CLINICAL HISTORY: SOB (shortness of breath) MQ: XC2_6 EXAM DATE/TIME: 10/01/2020 10:12 AM COMPARISON: Chest radiograph(s) dated 06/05/2019 RESULT: Lines, tubes, and devices: None. Lungs and pleura: No consolidation. No lung mass. No pleural effusion. No pneumothorax. Cardiomediastinal silhouette: Normal cardiomediastinal silhouette. Bones and soft tissues: Unremarkable. DIVISION OF RADIOLOGY Provider, [facility] [place] [place] - 10/01/2020 * * *Final Report* * * DATE OF EXAM: Oct 01 2020 10:12AM WOX 5291 - XR CHEST 2V FRONTAL/LAT / PROCEDURE REASON: SOB (shortness of breath) * * * * Physician Interpretation * * * * EXAMINATION: CHEST RADIOGRAPH (2 VIEW FRONTAL & LATERAL) CLINICAL HISTORY: SOB (shortness of breath) MQ: XC2_6 EXAM DATE/TIME: 10/01/2020 10:12 AM COMPARISON: Chest radiograph(s) dated 06/05/2019 RESULT: Lines, tubes, and devices: None. Lungs and pleura: No consolidation. No lung mass. No pleural effusion. No pneumothorax. Cardiomediastinal silhouette: Normal cardiomediastinal silhouette. Bones and soft tissues: Unremarkable. IMPRESSION IMPRESSION: No acute radiographic abnormality. In House Counsel: GABBY Transcribe Date/Time: Oct 01 2020 10:18A Dictated by : MASON FELICIANO MD This examination was interpreted and the report reviewed and electronically signed by: MASON FELICIANO MD on Oct 01 2020 10:20AM EST [facility] Radiology Study observation (narrative) [facility] XR Chest PA and LateralOrder ed By: Ccf Provider on 10-01-2020 [facility] NOVEL CORONAVIRUS (COVID-19) on 10-02-2019 SARS-COV-2 Not Detected Normal Not Detected [employer] Comment on above: Order Comment: This assay was performed by [employer] on the [employer]??? [employer]??? System ([employer] [place], [place]) using [employer] Mediated Amplification (TMA) technology. This test was developed, and its performance characteristics determined by [employer]. The Aptima??? SARS-CoV-2 assay is for use only under Emergency Use Authorization (EUA) in the [place] laboratories certified under the Clinical Laboratory Improvement Amendments of 1988 (CLIA), 42 U.S[place]C. ???263a, to perform high complexity tests. Performed By: #### C OVID19 #### [facility] [address] [place], [address] Vital Signs Date Time Vital Sign Value Performing Clinician Ethel alejandre 11-19-2024 13:01-0400 Body height 162.5 cm Jenifer Villa APRN.FLANGING ROLL OPERATOR Work Phone: [facility] 11-19-2024 13:01-0400 Body mass index (BMI) [Ratio] 40.33 kg/m2 Jenifer Villa APRN.FLANGING ROLL OPERATOR Work Phone: [facility] 11-19-2024 13:01-0400 Body temperature 97.7 [degF] Jenifer Villa APRN.FLANGING ROLL OPERATOR Work Phone: [facility] 11-19-2024 13:01-0400 Body weight 106.5 kg Jenifer Villa APRN.FLANGING ROLL OPERATOR Work Phone: [facility] 11-19-2024 13:01-0400 Diastolic blood pressure 76 mm[Hg] Jenifer Villa APRN.FLANGING ROLL OPERATOR Work Phone: [facility] 11-19-2024 13:01-0400 Heart rate 91 /min Jenifer Allen CONSULTING ACTUARY.FLANGING ROLL OPERATOR Work Phone: [facility] 11-19-2024 13:01-0400 Respiratory rate 14 /min Jenifer Allen CONSULTING ACTUARY.FLANGING ROLL OPERATOR Work Phone: [facility] 11-19-2024 13:01-0400 SaO2% (BldA) [Mass fraction] 97 % Jenifer Allen CONSULTING ACTUARY.FLANGING ROLL OPERATOR Work Phone: [facility] 11-19-2024 13:01-0400 Systolic blood pressure 120 mm[Hg] Jenifer Allen CONSULTING ACTUARY.FLANGING ROLL OPERATOR Work Phone: [facility] 07-18-2024 13:41-0400 Body mass index (BMI) [Ratio] 41.17 kg/m2 Adia Travis CONSULTING ACTUARY.FLANGING ROLL OPERATOR Work Phone: [facility] 07-18-2024 13:41-0400 Body weight 108.05 kg Adia Travis CONSULTING ACTUARY.FLANGING ROLL OPERATOR Work Phone: [facility] 07-18-2024 13:41-0400 Diastolic blood pressure 78 mm[Hg] Adia Travis CONSULTING ACTUARY.FLANGING ROLL OPERATOR Work Phone: [facility] 07-18-2024 13:41-0400 Heart rate 84 /min Adia Travis CONSULTING ACTUARY.FLANGING ROLL OPERATOR Work Phone: [facility] 07-18-2024 13:41-0400 Systolic blood pressure 122 mm[Hg] Adia Travis CONSULTING ACTUARY.FLANGING ROLL OPERATOR Work Phone: [facility] 07-09-2024 19:05-0400 Body mass index (BMI) [Ratio] 41.76 kg/m2 Manisha Garrett MD Work Phone: [facility] 07-09-2024 19:05-0400 Body weight 109.6 kg Manisha Garrett MD Work Phone: [facility] 07-09-2024 19:05-0400 Diastolic blood pressure 76 mm[Hg] Manisha Garrett MD Work Phone: [facility] 07-09-2024 19:05-0400 Heart rate 96 /min Manisha Garrett MD Work Phone: [facility] 07-09-2024 19:05-0400 Respiratory rate 18 /min Manisha Garrett MD Work Phone: [facility] 07-09-2024 19:05-0400 Systolic blood pressure 110 mm[Hg] Manisha Garrett MD Work Phone: [facility] 04-19-2024 10:46-0500 Body mass index (BMI) [Ratio] 42.62 kg/m2 Adia Travis CONSULTING ACTUARY.FLANGING ROLL OPERATOR Work Phone: [facility] 04-19-2024 10:46-0500 Body weight 111.86 kg Adia Travis CONSULTING ACTUARY.FLANGING ROLL OPERATOR Work Phone: [facility] 04-19-2024 10:46-0500 Diastolic blood pressure 84 mm[Hg] Adia Travis CONSULTING ACTUARY.FLANGING ROLL OPERATOR Work Phone: [facility] 04-19-2024 10:46-0500 Heart rate 84 /min Adia Travis CONSULTING ACTUARY.FLANGING ROLL OPERATOR Work Phone: [facility] 04-19-2024 10:46-0500 Respiratory rate 16 /min Adia Travis CONSULTING ACTUARY.FLANGING ROLL OPERATOR Work Phone: [facility] 04-19-2024 10:46-0500 SaO2% (BldA) [Mass fraction] 95 % Adia Travis CONSULTING ACTUARY.FLANGING ROLL OPERATOR Work Phone: [facility] 04-19-2024 10:46-0500 Systolic blood pressure 118 mm[Hg] Adia Travis CONSULTING ACTUARY.FLANGING ROLL OPERATOR Work Phone: [facility] 03-01-2024 14:33-0500 Body mass index (BMI) [Ratio] 41.27 kg/m2 Seth Gan CONSULTING ACTUARY.FLANGING ROLL OPERATOR Work Phone: [facility] 03-01-2024 14:33-0500 Body temperature 98.6 [degF] Seth Gan CONSULTING ACTUARY.FLANGING ROLL OPERATOR Work Phone: [facility] 03-01-2024 14:33-0500 Body weight 108.3 kg [facility] CON[facility] ACTUARY.FLANGING ROLL OPERATOR Work Phone: [facility] 03-01-2024 14:33-0500 Diastolic blood pressure 75 mm[Hg] Seth Pendlebury CONSULTING ACTUARY.FLANGING ROLL OPERATOR Work Phone: [facility] 03-01-2024 14:33-0500 Heart rate 93 /min Seth Pendlebury CONSULTING ACTUARY.FLANGING ROLL OPERATOR Work Phone: [facility] 03-01-2024 14:33-0500 Respiratory rate 20 /min Seth Pendlebury CONSULTING ACTUARY.FLANGING ROLL OPERATOR Work Phone: [facility] 03-01-2024 14:33-0500 SaO2% (BldA) [Mass fraction] 96 % Seth Pendlebury CONSULTING ACTUARY.FLANGING ROLL OPERATOR Work Phone: [facility] 03-01-2024 14:33-0500 Systolic blood pressure 106 mm[Hg] Seth Pendlebury CONSULTING ACTUARY.FLANGING ROLL OPERATOR Work Phone: [facility] 01-05-2024 13:56-0400 Body height 162 cm Adiajeffrey Kelleyman CONSULTING ACTUARY.FLANGING ROLL OPERATOR Work Phone: [facility] 01-05-2024 13:56-0400 Body mass index (BMI) [Ratio] 41.76 kg/m2 Adia Travis CONSULTING ACTUARY.FLANGING ROLL OPERATOR Work Phone: [facility] 01-05-2024 13:56-0400 Body weight 109.6 kg Adiajovanna Kelleyman CONSULTING ACTUARY.FLANGING ROLL OPERATOR Work Phone: [facility] 01-05-2024 13:56-0400 Diastolic blood pressure 72 mm[Hg] Adia Travis CONSULTING ACTUARY.FLANGING ROLL OPERATOR Work Phone: [facility] 01-05-2024 13:56-0400 Heart rate 92 /min Adia Travis CONSULTING ACTUARY.FLANGING ROLL OPERATOR Work Phone: [facility] 01-05-2024 13:56-0400 SaO2% (BldA) [Mass fraction] 95 % Adia Robles CONSULTING ACTUARY.FLANGING ROLL OPERATOR Work Phone: [facility] 01-05-2024 13:56-0400 Systolic blood pressure 110 mm[Hg] Adia Robles CONSULTING ACTUARY.FLANGING ROLL OPERATOR Work Phone: [facility] 09-19-2023 13:55-0400 Body mass index (BMI) [Ratio] 43.77 kg/m2 Stanley Sweeney DO Work Phone: [facility] 09-19-2023 13:55-0400 Body temperature 97.9 [degF] Stanley Sweeney DO Work Phone: [facility] 09-19-2023 13:55-0400 Body weight 115.67 kg Stanley Sweeney DO Work Phone: [facility] 09-19-2023 13:55-0400 Diastolic blood pressure 80 mm[Hg] Stanley Sweeney DO Work Phone: [facility] 09-19-2023 13:55-0400 Heart rate 80 /min Stanley Sweeney DO Work Phone: [facility] 09-19-2023 13:55-0400 Respiratory rate 16 /min Stanley Sweeney DO Work Phone: [facility] 09-19-2023 13:55-0400 Systolic blood pressure 120 mm[Hg] Stanley Sweeney DO Work Phone: [facility] 08-16-2023 12:47-0400 Body mass index (BMI) [Ratio] 44.46 kg/m2 Stanley Sweeney DO Work Phone: [facility] 08-16-2023 12:47-0400 Body temperature 97.5 [degF] Stanley Sweeney DO Work Phone: [facility] 08-16-2023 12:47-0400 Body weight 117.48 kg Stanley Sweeney DO Work Phone: [facility] 08-16-2023 12:47-0400 Diastolic blood pressure 60 mm[Hg] Stanley Sweeney DO Work Phone: [facility] 08-16-2023 12:47-0400 Heart rate 80 /min Stanley Sweeney DO Work Phone: [facility] 08-16-2023 12:47-0400 Respiratory rate 20 /min Stanley Sweeney DO Work Phone: [facility] 08-16-2023 12:47-0400 Systolic blood pressure 110 mm[Hg] Stanley Flemingrison DO Work Phone: [facility] 07-29-2023 10:08-0400 Body temperature 98.1 [degF] [facility] 07-29-2023 10:08-0400 Diastolic blood pressure 76 mm[Hg] [facility] 07-29-2023 10:08-0400 Heart rate 61 /min [facility] 07-29-2023 10:08-0400 Respiratory rate 15 /min [facility] 07-29-2023 10:08-0400 SaO2% (BldA) [Mass fraction] 97 % [facility] 07-29-2023 10:08-0400 Systolic blood pressure 125 mm[Hg] [facility] 07-29-2023 08:43-0400 Body height 162.56 cm [facility] 07-20-2023 08:59-0400 Body height 162.6 cm Ginna Agarwal MD Work Phone: [facility] 07-20-2023 08:59-0400 Body weight 117.03 kg Ginna Agarwal MD Work Phone: [facility] 07-20-2023 08:59-0400 Diastolic blood pressure 73 mm[Hg] Ginna Agarwal MD Work Phone: [facility] 07-20-2023 08:59-0400 Heart rate 96 /min Ginna Agarwal MD Work Phone: [facility] 07-20-2023 08:59-0400 Systolic blood pressure 130 mm[Hg] Ginna Agarwal MD Work Phone: [facility] 05-25-2023 14:00-0500 Body height 162.6 cm Ginna Agarwal MD Work Phone: [facility] 05-25-2023 14:00-0500 Body weight 118.39 kg Ginna Agarwal MD Work Phone: [facility] 05-25-2023 14:00-0500 Diastolic blood pressure 41 mm[Hg] Ginna Agarwal MD Work Phone: [facility] 05-25-2023 14:00-0500 Heart rate 93 /min Ginna Agarwal MD Work Phone: [facility] 05-25-2023 14:00-0500 Systolic blood pressure 121 mm[Hg] Ginna Agarwal MD Work Phone: [facility] 03-07-2023 14:51-0500 Body height 162.6 cm Candy Roddenberry CONSULTING ACTUARY.FLANGING ROLL OPERATOR Work Phone: [facility] 03-07-2023 14:51-0500 Body temperature 97.81 [degF] Candy Roddenberry CONSULTING ACTUARY.FLANGING ROLL OPERATOR Work Phone: [facility] 03-07-2023 14:51-0500 Body weight 118.89 kg Candy Roddenberry CONSULTING ACTUARY.FLANGING ROLL OPERATOR Work Phone: [facility] 03-07-2023 14:51-0500 Diastolic blood pressure 47 mm[Hg] Candy Roddenberry CONSULTING ACTUARY.FLANGING ROLL OPERATOR Work Phone: [facility] 03-07-2023 14:51-0500 Heart rate 91 /min Candy Roddenberry CONSULTING ACTUARY.FLANGING ROLL OPERATOR Work Phone: [facility] 03-07-2023 14:51-0500 SaO2% (BldA) [Mass fraction] 97 % Candy Roddenberry CONSULTING ACTUARY.FLANGING ROLL OPERATOR Work Phone: [facility] 03-07-2023 14:51-0500 Systolic blood pressure 136 mm[Hg] Candy Roddenberry CONSULTING ACTUARY.FLANGING ROLL OPERATOR Work Phone: [facility] 02-25-2023 13:00-0500 Diastolic blood pressure 62 mm[Hg] Aleyda Silveira MD Work Phone: [facility] 02-25-2023 13:00-0500 Respiratory rate 16 /min Aleyda Silveira MD Work Phone: [facility] 02-25-2023 13:00-0500 SaO2% (BldA) [Mass fraction] 97 % Aleyda Silveira MD Work Phone: [facility] 02-25-2023 13:00-0500 Systolic blood pressure 123 mm[Hg] Aleyda Silveira MD Work Phone: [facility] 02-25-2023 12:55-0500 Heart rate 79 /min Aleyda Silveira MD Work Phone: [facility] 01-26-2023 14:09-0400 Body height 162.6 cm Candy Roddenberry CONSULTING ACTUARY.FLANGING ROLL OPERATOR Work Phone: [facility] 01-26-2023 14:09-0400 Body temperature 97.3 [degF] Candy Roddenberry CONSULTING ACTUARY.FLANGING ROLL OPERATOR Work Phone: [facility] 01-26-2023 14:09-0400 Body weight 116.57 kg Candy Roddenberry CONSULTING ACTUARY.FLANGING ROLL OPERATOR Work Phone: [facility] 01-26-2023 14:09-0400 Diastolic blood pressure 62 mm[Hg] Candy Roddenberry CONSULTING ACTUARY.FLANGING ROLL OPERATOR Work Phone: [facility] 01-26-2023 14:09-0400 Heart rate 84 /min Candy Roddenberry CONSULTING ACTUARY.FLANGING ROLL OPERATOR Work Phone: [facility] 01-26-2023 14:09-0400 SaO2% (BldA) [Mass fraction] 95 % Candy Roddenberry CONSULTING ACTUARY.FLANGING ROLL OPERATOR Work Phone: [facility] 01-26-2023 14:09-0400 Systolic blood pressure 117 mm[Hg] Candy Roddenberry CONSULTING ACTUARY.FLANGING ROLL OPERATOR Work Phone: [facility] 12-20-2022 18:44-0400 Body temperature 98.29 [degF] Sofy Frazier CONSULTING ACTUARY.FLANGING ROLL OPERATOR Work Phone: [facility] 12-20-2022 18:44-0400 Body weight 120.2 kg Sofy Frazier CONSULTING ACTUARY.FLANGING ROLL OPERATOR Work Phone: [facility] 12-20-2022 18:44-0400 Diastolic blood pressure 84 mm[Hg] Sofy Frazier CONSULTING ACTUARY.FLANGING ROLL OPERATOR Work Phone: [facility] 12-20-2022 18:44-0400 Heart rate 96 /min Sofy Frazier CONSULTING ACTUARY.FLANGING ROLL OPERATOR Work Phone: [facility] 12-20-2022 18:44-0400 Respiratory rate 18 /min Sofy Frazier CONSULTING ACTUARY.FLANGING ROLL OPERATOR Work Phone: [facility] 12-20-2022 18:44-0400 SaO2% (BldA) [Mass fraction] 96 % Sofy Frazier CONSULTING ACTUARY.FLANGING ROLL OPERATOR Work Phone: [facility] 12-20-2022 18:44-0400 Systolic blood pressure 122 mm[Hg] Sofy Frazier CONSULTING ACTUARY.FLANGING ROLL OPERATOR Work Phone: [facility] 12-15-2022 09:23-0400 Body weight 118.39 kg Adia Robles CONSULTING ACTUARY.FLANGING ROLL OPERATOR Work Phone: [facility] 12-15-2022 09:23-0400 Diastolic blood pressure 84 mm[Hg] Adia Travis CONSULTING ACTUARY.FLANGING ROLL OPERATOR Work Phone: [facility] 12-15-2022 09:23-0400 Heart rate 89 /min Adia Travis CONSULTING ACTUARY.FLANGING ROLL OPERATOR Work Phone: [facility] 12-15-2022 09:23-0400 Respiratory rate 16 /min Adia Travis CONSULTING ACTUARY.FLANGING ROLL OPERATOR Work Phone: [facility] 12-15-2022 09:23-0400 SaO2% (BldA) [Mass fraction] 96 % Adia Travis CONSULTING ACTUARY.FLANGING ROLL OPERATOR Work Phone: [facility] 12-15-2022 09:23-0400 Systolic blood pressure 120 mm[Hg] Adia Travis CONSULTING ACTUARY.FLANGING ROLL OPERATOR Work Phone: [facility] 07-02-2022 10:08-0400 Body temperature 97.9 [degF] Katrin Ceballos CONSULTING ACTUARY.FLANGING ROLL OPERATOR Work Phone: [facility] 07-02-2022 10:08-0400 Body weight 116.21 kg Katrin Ceballos CONSULTING ACTUARY.FLANGING ROLL OPERATOR Work Phone: [facility] 07-02-2022 10:08-0400 Diastolic blood pressure 74 mm[Hg] Katrin Ceballos CONSULTING ACTUARY.FLANGING ROLL OPERATOR Work Phone: [facility] 07-02-2022 10:08-0400 Heart rate 76 /min Katrin Ceballos CONSULTING ACTUARY.FLANGING ROLL OPERATOR Work Phone: [facility] 07-02-2022 10:08-0400 Respiratory rate 18 /min Katrin Ceballos CONSULTING ACTUARY.FLANGING ROLL OPERATOR Work Phone: [facility] 07-02-2022 10:08-0400 SaO2% (BldA) [Mass fraction] 98 % Katrin Ceballos CONSULTING ACTUARY.FLANGING ROLL OPERATOR Work Phone: [facility] 07-02-2022 10:08-0400 Systolic blood pressure 128 mm[Hg] Katrin Ceballos CONSULTING ACTUARY.FLANGING ROLL OPERATOR Work Phone: [facility] 06-23-2022 13:09-0400 Body weight 115.21 kg Adia Travis CONSULTING ACTUARY.FLANGING ROLL OPERATOR Work Phone: [facility] 06-23-2022 13:09-0400 Diastolic blood pressure 88 mm[Hg] Adia Travis CONSULTING ACTUARY.FLANGING ROLL OPERATOR Work Phone: [facility] 06-23-2022 13:09-0400 Heart rate 80 /min Adia Travis CONSULTING ACTUARY.FLANGING ROLL OPERATOR Work Phone: [facility] 06-23-2022 13:09-0400 Respiratory rate 16 /min Adia Travis CONSULTING ACTUARY.FLANGING ROLL OPERATOR Work Phone: [facility] 06-23-2022 13:09-0400 SaO2% (BldA) [Mass fraction] 97 % Adia Travis CONSULTING ACTUARY.FLANGING ROLL OPERATOR Work Phone: [facility] 06-23-2022 13:09-0400 Systolic blood pressure 116 mm[Hg] Adia Travis CONSULTING ACTUARY.FLANGING ROLL OPERATOR Work Phone: [facility] 05-17-2022 13:28-0500 Body height 162 cm Pulm Wstr Work Phone: [facility] 05-17-2022 13:28-0500 Body weight 115.21 kg Pulm Wstr Work Phone: [facility] 05-17-2022 13:28-0500 Heart rate 82 /min Pulm Wstr Work Phone: [facility] 05-17-2022 13:28-0500 Respiratory rate 14 /min Pulm Wstr Work Phone: [facility] 05-17-2022 13:28-0500 SaO2% (BldA) [Mass fraction] 95 % Pulm Wstr Work Phone: [facility] 05-12-2022 16:08-0500 Body temperature 97.59 [degF] Adia Travis CONSULTING ACTUARY.FLANGING ROLL OPERATOR Work Phone: [facility] 05-12-2022 16:08-0500 Body weight 115.85 kg Adia Travis CONSULTING ACTUARY.FLANGING ROLL OPERATOR Work Phone: [facility] 05-12-2022 16:08-0500 Diastolic blood pressure 86 mm[Hg] Adia Travis CONSULTING ACTUARY.FLANGING ROLL OPERATOR Work Phone: [facility] 05-12-2022 16:08-0500 Heart rate 89 /min Adia Travis CONSULTING ACTUARY.FLANGING ROLL OPERATOR Work Phone: [facility] 05-12-2022 16:08-0500 Respiratory rate 16 /min Adia Travis CONSULTING ACTUARY.FLANGING ROLL OPERATOR Work Phone: [facility] 05-12-2022 16:08-0500 SaO2% (BldA) [Mass fraction] 96 % Adia Travis CONSULTING ACTUARY.FLANGING ROLL OPERATOR Work Phone: [facility] 05-12-2022 16:08-0500 Systolic blood pressure 118 mm[Hg] Adia Travis CONSULTING ACTUARY.FLANGING ROLL OPERATOR Work Phone: [facility] 05-06-2022 12:53-0500 Body temperature 97.2 [degF] Seth Pendlebury CONSULTING ACTUARY.FLANGING ROLL OPERATOR Work Phone: [facility] 05-06-2022 12:53-0500 Body weight 116.94 kg Seth Pendlebury CONSULTING ACTUARY.FLANGING ROLL OPERATOR Work Phone: [facility] 05-06-2022 12:53-0500 Diastolic blood pressure 62 mm[Hg] Seth Pendlebury CONSULTING ACTUARY.FLANGING ROLL OPERATOR Work Phone: [facility] 05-06-2022 12:53-0500 Heart rate 94 /min Seth Pendlebury CONSULTING ACTUARY.FLANGING ROLL OPERATOR Work Phone: [facility] 05-06-2022 12:53-0500 Respiratory rate 21 /min Seth Pendlebury CONSULTING ACTUARY.FLANGING ROLL OPERATOR Work Phone: [facility] 05-06-2022 12:53-0500 SaO2% (BldA) [Mass fraction] 99 % Seth Pendlebury CONSULTING ACTUARY.FLANGING ROLL OPERATOR Work Phone: [facility] 05-06-2022 12:53-0500 Systolic blood pressure 100 mm[Hg] Seth Pendlebury CONSULTING ACTUARY.FLANGING ROLL OPERATOR Work Phone: [facility] 2021 15:05-0400 Body weight 113.94 kg Adia Travis CONSULTING ACTUARY.FLANGING ROLL OPERATOR Work Phone: [facility] 2021 15:05-0400 Diastolic blood pressure 94 mm[Hg] Adia Travis CONSULTING ACTUARY.FLANGING ROLL OPERATOR Work Phone: [facility] 2021 15:05-0400 Heart rate 96 /min Adiajovanna Robles CONSULTING ACTUARY.FLANGING ROLL OPERATOR Work Phone: [facility] 2021 15:05-0400 SaO2% (BldA) [Mass fraction] 96 % Adia Robles CONSULTING ACTUARY.FLANGING ROLL OPERATOR Work Phone: [facility] 2021 15:05-0400 Systolic blood pressure 132 mm[Hg] Adia Travis CONSULTING ACTUARY.FLANGING ROLL OPERATOR Work Phone: [facility] 08-07-2021 14:19-0400 Body temperature 98.6 [degF] Tuan Oleary MD Work Phone: [facility] 08-07-2021 14:19-0400 Body weight 113.58 kg Tuan Oleary MD Work Phone: [facility] 08-07-2021 14:19-0400 Diastolic blood pressure 82 mm[Hg] Tuan Oleary MD Work Phone: [facility] 08-07-2021 14:19-0400 Heart rate 111 /min Tuan Oleary MD Work Phone: [facility] 08-07-2021 14:19-0400 Respiratory rate 16 /min Tuan Oleary MD Work Phone: [facility] 08-07-2021 14:19-0400 SaO2% (BldA) [Mass fraction] 98 % Tuan Oleary MD Work Phone: [facility] 08-07-2021 14:19-0400 Systolic blood pressure 126 mm[Hg] Tuan Oleary MD Work Phone: [facility] Encounters Encounter Date Encounter Type Care Provider Facility Start: 02-19-2025 End: 02-19-2025 ambulatory ADIA ROBLES Facility:[facility] Start: 02-19-[facility] Start: 12-25-2024 ambulatory STANLEY SWEENEY Facil ity:[facility] Start: 12-25-2024 End: 12-25-2024 Subsequent hospital visit by physician Screen Mammo [facility] Comment on above: Encounter for screen ing mammogram for breast cancer [Z12.31] Start: 12-03-2024 End: 12-03-2024 Refill Stalney Sweneey DO Work Phone: [facility] Comment on above: Refill Request Start: 12-02-2024 End: 12-04-2024 Refill Deisi Jules APRN.FLANGING ROLL OPERATOR Work Phone: [facility] [place] Comment on above: Refill Request Start: 11-19-2024 End: 11-19-2024 ambulatory JENIFER BACA ALLEN Facility:[facility] Start: 11-19-2024 End: 11-19-2024 Office outpatient visit 25 minutes Jenifer Villa APRN.FLANGING ROLL OPERATOR Work Phone: [facility] [place] Comment on above: Class 3 severe obesi ty with body mass index (BMI) of 40.0 to 44.9 in adult, unspecified obesity type, unspecified whether serious comorbidity present (HCC) (Primary Dx); Mike's disease; Fatty liver; Hypokalemia; Mixed hyperlipidemia; IFG (impaired fasting glucose) Start: 11-19-2024 End: 11-19-2024 ambulatory SMYRNA PHUONG ALLEN Facility:[facility] Start: 08-16-2024 End: 10-16-2024 Follow-up encounter Adia Robles APRN.CNP Work Phone: [facility] [place] Start: 08-15-2024 End: 08-15-2024 ambulatory ADIA ROBLES Facility:[facility] Start: 08-06-2024 End: 08-06-2024 Patient encounter procedure Eren Calderon Work Phone: Podiatry Comment on above: Plantar fasciitis (P rimary Dx); Foot pain, bilateral; Neuroma Start: 08-06-2024 End: 08-06-2024 ambulatory EREN CALDERON Facility:[facility] Start: 07-20-2024 End: 07-20-2024 Follow-up encounter Adia Robles APRN.CNP Work Phone: [facility] [place] Start: 07-18-2024 Encounter for genera l adult medical examination without abnormal findings MANISHA GARRETT [facility] Start: 07-18-2024 End: 07-18-2024 ambulatory ADIA ROBLES Facility:[facility] Start: 07-18-2024 End: 07-18-2024 Subsequent hospital visit by physician Meredith [facility] Work Phone: Radiology Comment on above: Foot pain, bilateral [M79.671, M79.672] Start: 07-18-2024 End: 07-18-2024 ambulatory ADIA ROBLES Facility:[facility] Start: 07-18-2024 End: 07-18-2024 Office outpatient visit 25 minutes Adia Robles APRN.FLANGING ROLL OPERATOR Work Phone: [facility] [place] Comment on above: Mike's disease (Primary Dx); Gastroesophageal reflux disease without esophagitis; Belching; Class 3 severe obesity with body mass index (BMI) of 40.0 to 44.9 in adult, unspecified obesity type, unspecified whether serious comorbidity present (HCC); Mild persistent asthma without complication (HCC); Foot pain, bilateral; Vitamin D deficiency; Mixed hyperlipidemia; Well adult exam; Encounter for vitamin deficiency screening Start: 07-18-2024 End: 07-18-2024 Patient encounter status Adia Robles APRN.FLANGING ROLL OPERATOR Work Phone: [facility] Start: 07-09-2024 End: 07-09-2024 ambulatory MANISHA GARRETT Facility:[facility] Start: 07-09-2024 End: 07-09-2024 Patient encounter procedure Manisha Garrett MD Work Phone: [facility] [place] Comment on above: Diarrhea, unspecifie d type (Primary Dx); Nausea and vomiting, unspecified vomiting type Start: 06-04-2024 End: 06-04-2024 Refill Stanley Sweeney DO Work Phone: [facility] [place] Comment on above: Refill Request Start: 06-03-2024 End: 06-04-2024 ambulatory Stanley L Sweeney DO Work Phone: [facility] Comment on above: Medicine Start: 05-08-2024 End: 05-09-2024 Telephone encounter Stanley Sweeney DO Work Phone: [facility] Comment on above: Medication Problem Start: 05-07-2024 End: 05-07-2024 Refill Stanley Aroldo Sweeney DO Work Phone: [facility] [place] Comment on above: Refill Request Start: 05-02-2024 Encounter for preprocedural cardiovascular examination Cynthia Vincent [facility] Start: 04-19-2024 End: 04-19-2024 Office outpatient visit 15 minutes Adia Robles CONSULTING ACTUARY.FLANGING ROLL OPERATOR Work [facility]: [facility] Comment on above: Class 3 severe obesi ty with body mass index (BMI) of 40.0 to 44.9 in adult, unspecified obesity type, unspecified whether serious comorbidity present (HCC) (Primary Dx); Ear itching Start: 04-19-2024 End: 04-19-2024 ambulatory ADIA ROBLES Facility:[facility] Start: 04-06-2024 End: 04-06-2024 Refill Stanley Aroldo Patel DO Work Phone: [facility] Comment on above: Refill Request Start: 03-31-2024 End: 04-02-2024 Refill Deisi Marie Jules CONSULTING ACTUARY.FLANGING ROLL OPERATOR Work [facility]: [facility] Comment on above: Refill Request Start: 03-31-2024 End: 04-02-2024 Telephone encounter Stanley Sweeney DO Work Phone: [facility] Comment on above: requesting lab order s Start: 03-01-2024 End: 03-01-2024 ambulatory STANLEY SWEENEY Facility:[facility] Start: 03-01-2024 End: 03-01-2024 Subsequent hospital visit by physician [facility] [place] Work Phone: Radiology Comment on above: Acute cough [R05.1] Start: 03-01-2024 End: 03-01-2024 ambulatory STANLEY L SWEENEY Facility:[facility] Start: 03-01-2024 End: 03-01-2024 Office outpatient visit 25 minutes Seth Gan APRN.FLANGING ROLL OPERATOR Work Phone: [facility] Comment on above: Acute cough (Primary Dx); URI with cough and congestion Start: 03-01-2024 End: 03-02-2024 Telephone encounter Seth Gan APRN.FLANGING ROLL OPERATOR Work Phone: [facility] Comment on above: Results Start: 02-21-2024 End: 02-27-2024 Telephone encounter Stanley Flemingrison DO Work Phone: [facility] Comment on above: potassium low on pre op labs Start: 02-21-2024 End: 02-21-2024 ambulatory Cynthia Melisa PA Facility:[facility] Start: 02-21-2024 End: 02-21-2024 ambulatory [facility] Facility:[facility] Start: 02-05-2024 End: 02-06-2024 Refill Stanley Arton DO Work Phone: [facility] Comment on above: Refill Request Start: 02-01-2024 End: 02-01-2024 Refill Stanley Flemingrison DO Work Phone: [facility] Comment on above: Refill Request Start: 01-21-2024 End: 01-24-2024 ambulatory Stanley Aroldo FlemingSweeney DO Work Phone: [facility] Comment on above: Torn fili Start: 01-11-2024 End: 01-11-2024 Telephone encounter Adia Robles APRN.FLANGING ROLL OPERATOR Work Phone: [facility] Comment on above: Results Start: 01-10-2024 End: 01-10-2024 Emergency department patient visit Gary Mojica Facility:[facility] Start: 01-09-2024 End: 01-09-2024 Subsequent hospital visit by physician [facility] Work Phone: Radiology Comment on above: RUQ pain [R10.11] Start: 01-05-2024 End: 01-05-2024 Office outpatient visit 40 minutes Adia Smallphyllis SINGHFLANGING ROLL OPERATOR Work Phone: [facility] [place] Comment on above: Class 3 severe obesi ty with body mass index (BMI) of 40.0 to 44.9 in adult, unspecified obesity type, unspecified whether serious comorbidity present (HCC) (Primary Dx); Well adult exam; Acute pain of right knee; Mike's disease; Elevated LFTs; Vitamin D insufficiency; Mixed hyperlipidemia; Screening for diabetes mellitus; RUQ pain; Hepatic steatosis; Encounter for immunization; Encounter for screening mammogram for breast cancer Start: 01-05-2024 End: 01-05-2024 Patient encounter status Adia Robles AYLIN.FLANGING ROLL OPERATOR Work Phone: [facility] Work Phone: Start: 12-12-2023 End: 12-13-2023 Refill Deisi Jules APRN.FLANGING ROLL OPERATOR Work Phone: [facility] [place] Comment on above: Refill Request Start: 09-28-2023 Telephone encounter Stanley agarwal DO Work Phone: [facility] [place] Comment on above: Patient Question Start: 09-19-2023 End: 09-19-2023 Patient encounter procedure Stanley Sweeney DO Work Phone: [facility] [place] Comment on above: Mixed hyperlipidemia (Primary Dx); Class 3 severe obesity with body mass index (BMI) of 40.0 to 44.9 in adult, unspecified obesity type, unspecified whether serious comorbidity present (HCC); Gastroesophageal reflux disease without esophagitis; Anxiety with depression; Hepatic steatosis Start: 09-19-2023 Telephone encounter Stanley agarwal DO Work Phone: [facility] [place] Comment on above: Medication Problem Start: 09-10-2023 ambulatory Stanley ruiz DO Work Phone: [facility] [place] Comment on above: Ronnie Katz Start: 09-10-2023 Refill Esme west PA-C Work Phone: [facility] [place] Comment on above: Refill Request Start: 09-08-2023 Refill Deisi Jules APRN.CNP Work Phone: [facility] Comment on above: Refill Request Start: 08-16-2023 End: 08-16-2023 Patient encounter procedure Stanley Sweeney DO Work Phone: [facility] Comment on above: Class 3 severe obesi ty with body mass index (BMI) of 40.0 to 44.9 in adult, unspecified obesity type, unspecified whether serious comorbidity present (HCC) (Primary Dx); Swelling of both hands; Leg swelling; Mild persistent asthma without complication; Anxiety with depression; Acute pain of right knee Start: 07-29-2023 End: 07-29-2023 ambulatory Stanley Sweeney [place] Start: 07-29-2023 End: 07-29-2023 Emergency department patient visit [facility] Work Phone: Start: 07-27-2023 Refill Esme west PA-C Work Phone: [facility] Comment on above: Refill Request Start: 07-20-2023 End: 07-20-2023 ambulatory [facility] Provider [facility] Comment on above: Bariatric Seminar Start: 07-20-2023 E-mail encounter gema m caregiver [facility] Provider [facility] Start: 07-20-2023 Telephone encounter Ginna chen MD Work Phone: [facility] Comment on above: Bariatric Seminar Start: 07-20-2023 End: 07-20-2023 Patient encounter procedure Ginna Agarwal MD Work Phone: [facility] Comment on above: Status post laparosc opic cholecystectomy (Primary Dx); Class 3 severe obesity with serious comorbidity and body mass index (BMI) of 40.0 to 44.9 in adult, unspecified obesity type (HCC); Hepatic steatosis Start: 07-05-2023 End: 07-05-2023 ambulatory GINNA AGARWAL Facility:[facility] Start: 07-04-2023 Telephone encounter Ginna chen MD Work Phone: [facility] Comment on above: Patient Update Start: 06-28-2023 End: 06-28-2023 Subsequent hospital visit by physician Main [facility] 5 Work Phone: Radiology Comment on above: Advanced hepatic fib rosis [K74.02] Start: 06-23-2023 Documentation procedure Mammog isabel Coordinator [facility] Start: 06-23-2023 Letter encounter Mammography Coordinator [facility] Start: 06-22-2023 ambulatory Stanley ruiz DO Work Phone: Internal Medicine [facility] [place] Start: 06-22-2023 End: 06-22-2023 Subsequent hospital visit by physician Screen Mammo [facility] Comment on above: Encounter for screen ing mammogram for breast cancer [Z12.31] Start: 06-16-2023 Telephone encounter Ginna chen MD Work Phone: [facility] Comment on above: Patient Question Start: 06-15-2023 Refill Stanley ruiz DO Work Phone: [facility] Comment on above: Refill Request Start: 05-25-2023 End: 05-25-2023 ambulatory Ginna Agarwal MD Work Phone: [facility] Comment on above: Bariatric Seminar Start: 05-25-2023 E-mail encounter fro m caregiver Ginna Agarwal MD Work Phone: [facility] Start: 05-25-2023 End: 05-25-2023 Patient encounter procedure Ginna Agarwal MD Work Phone: [facility] Comment on above: Gallstones (Primary Dx); Class 3 severe obesity with serious comorbidity and body mass index (BMI) of 40.0 to 44.9 in adult, unspecified obesity type (HCC); Nonalcoholic steatohepatitis (NAVA); SHAINA (obstructive sleep apnea); Hyperlipidemia, unspecified hyperlipidemia type Start: 03-07-2023 End: 03-07-2023 Patient encounter procedure Candy Pabon APRN.CNP Work Phone: Gastroenterology Comment on above: Advanced hepatic fib rosis (Primary Dx) Start: 02-25-2023 End: 02-25-2023 Subsequent hospital visit by physician Aleyda Silveira MD Work Phone: Gastroenterology Comment on above: Screening for colon cancer [Z12.11] Start: 02-03-2023 End: 02-03-2023 Subsequent hospital visit by physician Mri [facility] (I-Stat/1.5t) Work Phone: Radiology Comment on above: Encounter for observ ation for other suspected diseases and conditions ruled out [Z03.89] Start: 02-01-2023 Refill Deisi Jules CONSULTING ACTUARY.FLANGING ROLL OPERATOR Work Phone: [facility] [place] Comment on above: Refill Request Start: 02-01-2023 Refill Adia norman CONSULTING ACTUARY.FLANGING ROLL OPERATOR Work Phone: [facility] [place] Comment on above: Refill Request Start: 01-26-2023 End: 01-26-2023 Patient encounter procedure Candy Katmadelyn CONSULTING ACTUARY.FLANGING ROLL OPERATOR Work Phone: Gastroenterology Comment on above: Calculus of gallblad fernando without cholecystitis without obstruction (Primary Dx); Hepatic steatosis; RUQ pain; Advanced hepatic fibrosis; BMI 40.0-44.9, adult (HCC) Start: 01-09-2023 Refill Stanley ruiz DO Work Phone: [facility] Comment on above: Refill Request Start: 12-29-2022 Telephone encounter Adia Munroe APRN.FLANGING ROLL OPERATOR Work Phone: [facility] [place] Comment on above: Results; Appointment ; Orders Start: 12-28-2022 End: 12-28-2022 Subsequent hospital visit by physician [facility] [place] [facility] Work Phone: Radiology Comment on above: Elevated LFTs [R79.8 9] Start: 12-21-2022 End: 12-02-2023 Telephone encounter Stanley Sweeney DO Work Phone: [facility] [place] Start: 12-20-2022 End: 12-20-2022 Subsequent hospital visit by physician Xr [facility] Work Phone: Radiology Comment on above: Acute cough [R05.1] Start: 12-20-2022 End: 12-20-2022 Patient encounter procedure Sofy Frazier APRN.CNP Work Phone: [facility] Comment on above: Acute cough (Primary Dx); URI, acute Start: 12-20-2022 Telephone encounter Sofy Frazier APRN.FLANGING ROLL OPERATOR Work Phone: [facility] Comment on above: Results Start: 12-15-2022 End: 12-15-2022 Subsequent hospital visit by physician [facility] [place] Work Phone: Radiology Comment on above: Foot pain, bilateral [M79.671, M79.672] Start: 12-15-2022 End: 12-15-2022 Patient encounter procedure Adia Robles APRN.FLANGING ROLL OPERATOR Work Phone: [facility] Comment on above: Foot pain, bilateral (Primary Dx); Bilateral cold feet; Cramping of feet; SOB (shortness of breath) on exertion; Hypokalemia; Mixed hyperlipidemia; Mike's disease; Vitamin D insufficiency Start: 12-10-2022 Refill Adia norman APRN.FLANGING ROLL OPERATOR Work Phone: [facility] Comment on above: Refill Request Start: 07-06-2022 Refill Stanley Schultz son DO Work Phone: [facility] Comment on above: Refill Request Start: 07-02-2022 End: 07-02-2022 Subsequent hospital visit by physician [facility] [place] Work Phone: Radiology Comment on above: Acute constipation [ K59.00] Start: 07-02-2022 End: 07-02-2022 Patient encounter procedure Katrin Ceballos APRN.FLANGING ROLL OPERATOR Work Phone: [facility] Comment on above: Acute constipation ( Primary Dx) Start: 06-23-2022 End: 06-23-2022 Patient encounter procedure Adia Robles APRN.FLANGING ROLL OPERATOR Work Phone: [facility] [place] Comment on above: Chest pressure (Prim justo Dx); Chest pain, unspecified type; Shortness of breath; SHAINA (obstructive sleep apnea); Mild persistent asthma without complication; Right elbow pain; Bilateral hearing loss, unspecified hearing loss type Start: 06-16-2022 Telephone encounter Adia Munroe APRN.FLANGING ROLL OPERATOR Work Phone: [facility] [place] Comment on above: Results Start: 06-10-2022 End: 06-11-2022 ambulatory STANLEY SWEENEY Facility:[facility] Start: 05-17-2022 Documentation procedure Mammog isabel Coordinator [facility] Start: 05-17-2022 Letter encounter Mammography Coordinator [facility] Start: 05-17-2022 End: 05-17-2022 ambulatory Pulm Lab [facility] Work Phone: PULM LAB [facility] Comment on above: Spirometry Start: 05-17-2022 End: 05-17-2022 Patient encounter procedure Pulm [facility] Work Phone: [place] [facility] Start: 05-17-2022 End: 05-17-2022 Subsequent hospital visit by physician Screen Mammo [facility] Comment on above: Encounter for screen ing mammogram for breast cancer [Z12.31] Start: 05-13-2022 Chart abstracting [facility] Work Phone: Neurology Start: 05-12-2022 End: 05-12-2022 Patient encounter procedure Adia Robles APRN.FLANGING ROLL OPERATOR Work Phone: [facility] [place] Comment on above: SOB (shortness of br eath) on exertion (Primary Dx); Mild persistent asthma without complication; Wheezing; Decreased lung sounds; SHAINA (obstructive sleep apnea) Start: 05-06-2022 End: 05-06-2022 Office outpatient visit 15 minutes Seth Gan APRN.FLANGING ROLL OPERATOR Work Phone: [place] [facility] Comment on above: Sore throat (Primary Dx); Viral URI Start: 04-06-2022 Refill Stanley ruiz DO Work Phone: [facility] Comment on above: Refill Request Start: 03-11-2022 ambulatory Stanley ruiz DO Work Phone: Internal Medicine [facility] [place] [facility] Start: 01-06-2022 Refill Deisi Zurawic k CONSULTING ACTUARY.FLANGING ROLL OPERATOR [facility] Comment on above: Refill Request Start: 2021 End: 2021 Patient encounter procedure Adia Robles CONSULTING ACTUARY.FLANGING ROLL OPERATOR Work Phone: [facility] [place] Comment on above: Anxiety with depress ion (Primary Dx); Mike's disease; Mixed hyperlipidemia; Vitamin D deficiency; Obesity, Class III, BMI 40-49.9 (morbid obesity) (HCC); Elevated fasting glucose Start: 11-18-2021 Telephone encounter Stanley agarwal DO Work Phone: [facility] Comment on above: Appointment Start: 10-31-2021 Refill Stanley ruiz DO Work Phone: [facility] Comment on above: Refill Request Start: 09-02-2021 Refill Deisi Zurawic k CONSULTING ACTUARY.FLANGING ROLL OPERATOR Work Phone: [facility] Comment on above: Refill Request Start: 08-21-2021 End: 08-21-2021 Patient encounter procedure Rubén Yu DO Work Phone: [facility] Comment on above: Chondromalacia of pa tella, unspecified laterality (Primary Dx); Acute pain of left knee; Effusion, left knee Start: 08-15-2021 Refill Deisi Zurawic k CONSULTING ACTUARY.FLANGING ROLL OPERATOR Work Phone: [facility] Comment on above: Refill Request Start: 08-07-2021 End: 08-07-2021 Patient encounter procedure Tuan Oleary MD Work Phone: [facility] Comment on above: Acute pain of left k nee (Primary Dx); Effusion, left knee Start: 07-26-2021 Refill Deisi Zurawic k CONSULTING ACTUARY.FLANGING ROLL OPERATOR Work Phone: [facility] Comment on above: Refill Request Start: 07-25-2021 Refill Deisi briones CONSULTING ACTUARY.FLANGING ROLL OPERATOR Work Phone: [facility] Comment on above: Refill Request Start: 07-15-2021 ambulatory Stanley Schultz son DO Work Phone: [facility] Comment on above: Phone in meds Start: 07-09-2021 Refill Deisi briones CONSULTING ACTUARY.FLANGING ROLL OPERATOR Work Phone: [facility] Comment on above: Refill Request Start: 03-06-2021 End: 03-06-2021 Subsequent hospital visit by physician [facility]r [facility] [place] Work Phone: Radiology Comment on above: Acute pain of left k nee [M25.562] Start: 10-29-2020 End: 10-29-2020 Subsequent hospital visit by physician [facility] Work Phone: Radiology Comment on above: Arthralgia of right knee [M25.561] Start: 10-01-2020 End: 10-01-2020 Subsequent hospital visit by physician [facility] [place] Work Phone: Radiology Comment on above: SOB (shortness of br eath) [R06.02] Start: 10-02-2019 Patient encounter procedure UNKNOWN PROVIDER Facility:[facility] Start: 03-10-2017 End: 03-11-2017 Ambulatory IMCA Facility:[facility] Procedures Date Procedure Procedure Detail Performing Clinician Start: 11-19-2024 Lipid 1996 panel - Serum or Plasma Jenifer Villa CONSULTING ACTUARY.FLANGING ROLL OPERATOR Work Phone: Start: 07-18-2024 Lipid 1996 panel - Serum or Plasma Adia Robles CONSULTING ACTUARY.FLANGING ROLL OPERATOR Work Phone: Start: 03-01-2024 Radiologic exam chest 2 views Seth Gan CONSULTING ACTUARY.FLANGING ROLL OPERATOR Work Phone: Start: 01-09-2024 Us abdominal real time w/image limited Adia Robles CONSULTING ACTUARY.FLANGING ROLL OPERATOR Work Phone: Start: 01-09-2024 Lipid 1996 panel - Serum or Plasma Xr [place] Work Phone: Start: 07-29-2023 Radiologic examination of knee Start: 06-28-2023 Us abdominal real time w/image limited Candyhenrique Pabon CONSULTING ACTUARY.FLANGING ROLL OPERATOR Work Phone: Start: 02-25-2023 Colonoscopy flx dx w/collj spec when pfrmd Deisi Jules CONSULTING ACTUARY.FLANGING ROLL OPERATOR Work Phone: Start: 02-25-2023 Colonoscopy Aleyda Silveira MD Work Phone: Start: 02-03-2023 Mri lower extrem oth/thn jt w/o contr matrl Eren Calderon Work Phone: Start: 01-29-2023 Lipid 1996 panel - Serum or Plasma Deisi Jules CONSULTING ACTUARY.FLANGING ROLL OPERATOR Work Phone: Start: 12-28-2022 Us abdominal real time w/image limited Adia Robles CONSULTING ACTUARY.FLANGING ROLL OPERATOR Work Phone: Start: 12-20-2022 Radiologic exam chest 2 views Sofy Frazier CONSULTING ACTUARY.FLANGING ROLL OPERATOR Work Phone: Start: 12-15-2022 Radex foot complete minimum 3 views Adia Robles CONSULTING ACTUARY.FLANGING ROLL OPERATOR Work Phone: Start: 12-15-2022 Radiologic exam chest 2 views Adia Robles CONSULTING ACTUARY.FLANGING ROLL OPERATOR Work Phone: Start: 12-15-2022 Lipid 1996 panel - Serum or Plasma Sofy Frazier CONSULTING ACTUARY.FLANGING ROLL OPERATOR Work Phone: Start: 07-02-2022 Radiologic exam abdomen 1 view Katrin Ceballos CONSULTING ACTUARY.FLANGING ROLL OPERATOR Work Phone: Start: 05-17-2022 Brncdilat rspse spmtry pre&post-brncdilat admn Adia Robles CONSULTING ACTUARY.FLANGING ROLL OPERATOR Work Phone: Start: 05-17-2022 End: 05-17-2022 Mammography Bulk Order Provider Start: 05-06-2022 STREP A MOLECULAR (POC) Shantell rodriguez CONSULTING ACTUARY.FLANGING ROLL OPERATOR Work Phone: Start: 03-06-2021 Radiologic exam knee complete 4/more views Katrin Ceballos CONSULTING ACTUARY.FLANGING ROLL OPERATOR Work Phone: Start: 02-03-2021 Mammography Deisi Greene CONSULTING ACTUARY.FLANGING ROLL OPERATOR Work Phone: Start: 10-29-2020 Radiologic examination knee 1/2 views Omar Lynch MD Work Phone: Start: 10-01-2020 Radiologic exam chest 2 views Juanjose Givens CONSULTING ACTUARY.FLANGING ROLL OPERATOR, DNP Work Phone: History of cholecystectomy Status post laparoscopic cholecystectomy Ginna Agarwal MD Work Phone: Plan of Treatment Date Care Activity Detail Author Start: 01-09-2034 Urine microalbumin profile DTaP,Tdap,Td Vaccine (3 - Td or Tdap) [facility] Start: 11-19-2029 Lipid panel Lipid Screening [facility] Start: 07-18-2029 Lipid panel Lipid Screening [facility] Start: 01-08-2029 Lipid panel Lipid Screening [facility] Start: 01-30-2028 Lipid 1996 panel - Serum or Plasma Lipid Screening [facility] Start: 01-30-2028 Lipid panel Lipid Screening [facility] Start: 12-16-2027 Lipid 1996 panel - Serum or Plasma Lipid Screening [facility] Start: 12-16-2027 [address]EN L[address]ID SCREEN [facility] Start: 11-20-2027 Diabetes Screening Diabetes Screening [facility] Start: 08-16-2027 Diabetes Screening Diabetes Screening [facility] Start: 07-19-2027 Diabetes Screening Diabetes Screening [facility] Start: 01-08-2027 Diabetes Screening Diabetes Screening [facility] Start: 11-14-2026 [address]EN LIPID SCREEN [facility] Start: 07-17-2026 Diabetes Screening Diabetes Screening [facility] Start: 05-27-2026 Diabetes Screening Diabetes Screening [facility] Start: 01-29-2026 Diabetes Screening Diabetes Screening [facility] Start: 12-15-2025 DIABETES SCREEN DIABETES SCREEN [facility] Start: 12-15-2025 Diabetes Screening Diabetes Screening [facility] Start: 11-19-2025 Annual PCP Team Chronic Disease Visit Annual PCP Team Chronic Disease Visit [facility] Start: 07-30-[address] SCREEN [facility] Start: 07-18-2025 Annual PCP Team Chronic Disease Visit Annual PCP Team Chronic Disease Visit [facility] Start: 07-09-2025 Annual PCP Team Chronic Disease Visit Annual PCP Team Chronic Disease Visit [facility] Start: 04-19-2025 Annual PCP Team Chronic Disease Visit Annual PCP Team Chronic Disease Visit [facility] Start: 02-20-2025 End: 02-20-2025 Patient encounter procedure Family [facility] Comment on above: 3 month f/up *1st attempt to resc hed - lm Start: 01-16-[address] [facility] Start: 01-04-2025 Annual PCP Team Chronic Disease Visit Annual PCP Team Chronic Disease Visit [facility] Start: 01-04-2025 Covid-19 Vaccine ( season) Covid-19 Vacc[address] () [facility] Comment on above: Postponed from 12/11/2023 (Declined at t his time) Start: 12-10-2024 Influenza vaccination Influ[facility] (#[facility]) [facility] Start: 11-19-2024 End: 11-19-2024 Patient encounter procedure 11/19/2024 1:20 PM EDT Office Visit [facility] [address] [place] [address] [phone] Jenifer Villa, AYLIN.FLANGING ROLL OPERATOR [address] [place], [place] [id number] Med refill/Well check [facility] [place] Comment on above: Med refill/Well check Start: 11-14-2024 DI[address]ES [address]EN DI[address]ES SCREEN [facility] Start: 10-17-2024 End: 10-17-2024 Patient encounter procedure [facility] [place] Comment on above: 3 month weight Med refill/Well chec k Start: 09-18-2024 Annual PCP Team Chronic Disease Visit Annual PCP Team Chronic Disease Visit [facility] Start: 08-19-2024 End: 11-18-2024 CBC W Auto Differential panel - Blood COMPLETE BLOOD COUNT AND DIFFERENTIAL Lab Routine Leukocytosis, unspecified type Expected: 08/19/2024, Expires: 11/18/2024 [facility] Comment on above: Expected: 08/19/2024, Expires: Start: 08-19-2024 End: 11-18-2024 Comprehensive metabolic 2000 panel - Serum or Plasma COMPREHENSIVE METABOLIC PANEL Lab Routine Serum calcium elevated Expected: 08/19/2024, Expires: 11/18/2024 [facility] Work Phone: Comment on above: Expected: 08/19/2024, Expires: Start: 08-19-2024 End: 11-18-2024 Parathyrin.intact [Mass/volume] in Serum or Plasma PTH INTACT Lab Routine Serum calcium elevated Expected: 08/19/2024, Expires: 11/18/2024 [facility] Comment on above: Expected: 08/19/2024, Expires: Start: 08-15-2024 Annual PCP Team Chronic Disease Visit Annual PCP Team Chronic Disease Visit [facility] Start: 08-15-2024 End: 08-15-2024 ambulatory 08/15/2024 12:45 PM EDT Results Only [facility] [address] [facility] [place] [address] [facility] Start: 08-06-2024 End: 08-06-2024 Patient encounter procedure 08/06/2024 2:30 PM EDT Office Visit Podiatry [address] [place] [address] [facility]Eren kessler [address] [facility] [place] [address] Foot pain, bilateral [M79.671, M79.672] Podiatry Comment on above: Foot pain, bilateral [M79.671, M79.672] Start: 07-20-2024 End: 10-19-2024 Calcium.ionized [Moles/volume] in Blood CALCIUM, IONIZED Lab Routine Serum calcium elevated Expected: 07/20/2024, Expires: 10/19/2024 [facility] Comment on above: Expected: 07/20/2024, Expires: Start: 07-18-2024 End: 10-17-2024 25-hydroxyvitamin D3 [Mass/volume] in Serum or Plasma [facility] Comment on above: Expected: 07/18/2024, Expires: Start: 07-18-2024 End: 10-17-2024 CBC panel - Blood by Automated count [facility] Comment on above: Expected: 07/18/2024, Expires: Start: 07-18-2024 End: 10-17-2024 Cobalamin (Vitamin B12) [Mass/volume] in Serum or Plasma [facility] Comment on above: Expected: 07/18/2024, Expires: Start: 07-18-2024 End: 10-17-2024 Comprehensive metabolic 2000 panel - Serum or Plasma [facility] Comment on above: Expected: 07/18/2024, Expires: Start: 07-18-2024 End: 10-17-2024 Lipid 1996 panel - Serum or Plasma [facility] Comment on above: Expected: 07/18/2024, Expires: Start: 07-18-2024 End: 10-17-2024 Thyrotropin [Units/volume] in Serum or Plasma [facility] Work Phone: Comment on above: Expected: 07/18/2024, Expires: Start: 07-18-2024 End: 10-17-2024 Thyroxine (T4) free [Mass/volume] in Serum or Plasma [facility] Comment on above: Expected: 07/18/2024, Expires: Start: 07-18-2024 End: 07-18-2024 Patient encounter procedure Family Isha [place] Comment on above: 3 month weight Start: 06-21-2024 Screening for malignant neoplasm of breast Mammogram Screening [facility] Start: 04-10-2024 End: 04-10-2024 Patient encounter procedure 04/10/2024 11:00 AM EST Office Visit Family Isha [place] [address] [place] [address] Adia Robles APRN.FLANGING ROLL OPERATOR [address] [place] [id number] Med review Family Medicine [facility] Comment on above: Med review Start: 04-07-2024 Annual PCP Team Chronic Disease Visit Annual PCP Team Chronic Disease Visit [facility] Start: 04-07-2024 Hepatitis B Vaccine (1 of 3 - 19+ 3-dose series) Hepatitis B Vaccine (1 of 3 - 19+ 3-dose series) [facility] Comment on above: Postponed from 1989 (Declined at t his time) Start: 04-07-2024 Hepatitis B Vaccine (1 of 3 - 3-dose series) Hepatitis B Vaccine (1 of 3 - 3-dose series) [facility] Comment on above: Postponed from 1970 (Declined at t his time) Start: 04-07-2024 Shingrix Vaccine (1 of 2) Shingrix Vaccine (1 of 2) [facility] Comment on above: Postponed from 2020 (Declined at t his time) Start: 04-05-2024 End: 04-05-2024 Patient encounter procedure 04/05/2024 1:00 PM EST Office Visit Family Medicine Domin[facility] [address] [place], [place] [phone] Adia Robles APRN.FLANGING ROLL OPERATOR [address] [place], [place] [id number] Med Review Family Medicine [facility] Comment on above: Med Review Start: 02-27-2024 End: 05-28-2024 Potassium [Moles/volume] in Serum or Plasma POTASSIUM Lab Routine Low blood potassium Expected: 02/27/2024, Expires: 05/28/2024 [facility] Work Phone: Comment on above: Expected: 02/27/2024, Expires: Start: 02-26-[address] [facility] Start: 02-26-2024 Colorectal Cancer Screening Colorectal Cancer Screening [facility] Start: 02-26-2024 Screening for malignant neoplasm of colon [facility] Start: 01-11-2024 End: 04-11-2024 Calcium.ionized [Moles/volume] in Blood CALCIUM, IONIZED Lab Routine Hypercalcemia Expected: 01/11/2024, Expires: 04/11/2024 [facility] Work Phone: Comment on above: Expected: 01/11/2024, Expires: Start: 01-11-2024 End: 04-11-2024 Parathyrin.intact [Mass/volume] in Serum or Plasma PTH INTACT Lab Routine Hypercalcemia Expected: 01/11/2024, Expires: 04/11/2024 [facility] Comment on above: Expected: 01/11/2024, Expires: Start: 01-11-2024 End: 01-11-2024 Patient encounter procedure 01/11/2024 1:30 PM EDT Appointment Mammogram [address] [place] [address] Encounter for screening mammogram for breast cancer [Z12.31] Mammogram Comment on above: Encounter for screening mammogram for br east cancer [Z12.31] Start: 01-07-2024 Annual PCP Team Chronic Disease Visit Annual PCP Team Chronic Disease Visit [facility] Start: 01-07-2024 Covid-19 Vaccine (#1) Covid-19 Vaccine (#1) [facility] Comment on above: Postponed from [birth year]/26/1971 (Declined at t his time) Start: 01-07-2024 Covid-19 Vaccine () Covid-19 Vaccine () [facility] Comment on above: Postponed from 12/10/2022 (Declined at t his time) Start: 01-05-2024 End: 01-05-2024 Patient encounter procedure 01/05/2024 1:40 PM EDT Office Visit Family Medicine [facility] [address] [place] [address] Adia Robles APRN.FLANGING ROLL OPERATOR [address] [place] [address] est wellness / needs mammogram order Family Medicine [facility] Comment on above: est wellness / needs mammogram order Start: 12-20-2023 End: 12-20-2023 Patient encounter procedure 12/20/2023 1:40 PM EDT Office Visit Family Medicine [place] [address] [place] [address] Adia Robles APRN.FLANGING ROLL OPERATOR [address] [place] [address] Weight follow up [facility] Domin[facility] Comment on above: Weight follow up Start: 12-16-2023 ANNUAL PCP TEAM CHRONIC DISEASE VISIT ANNUAL PCP TEAM CHRONIC DISEASE VISIT [facility] Start: 12-11-2023 Covid-19 Vaccine ( season) Covid-19 Vaccine () [facility] Start: 12-11-2023 Covid-19 Vaccine () Covid-19 Vaccine () [facility] Start: 12-11-[address] [facility] Start: 10-09-2023 Influenza vaccination [facility] (#[facility]: Postponed from 12/10/2022 (Declined at t his time) Start: 09-19-2023 End: 09-19-2023 Patient encounter procedure 09/19/2023 2:00 PM EDT Office Visit [facility] [place] [address] [place] [address] Stanley Sweeney DO [address] [place] [address] Follow up [facility] Comment on above: Follow up Start: 08-31-2023 End: 08-31-2023 Patient encounter procedure 08/31/2023 3:00 PM EDT Office Visit Gastroenterology [address] [address] Candy Pabon APRN.FLANGING ROLL OPERATOR [address] [place], [place] [phone] 6 month follow up Gastroenterology Comment on above: 6 month follow up Start: 07-31-2023 DIABETES SCREEN DIABETES SCREEN [facility] Start: 06-28-2023 End: 09-27-2023 CBC W Auto Differential panel - Blood CBC + DIFF Lab Routine Advanced hepatic fibrosis Expected: 06/28/2023 (Approximate), Expires: 09/27/2023 [facility] Work Phone: Comment on above: Expected: 06/28/2023 (Approximate), Expi res: 09/27/2023 Start: 06-28-2023 End: 09-27-2023 Comprehensive metabolic 2000 panel - Serum or Plasma COMP METABOLIC PANEL Lab Routine Advanced hepatic fibrosis Expected: 06/28/2023 (Approximate), Expires: 09/27/2023 [facility] Work Phone: Comment on above: Expected: 06/28/2023 (Approximate), Expi res: 09/27/2023 Start: 06-28-2023 End: 09-27-2023 PT panel - Platelet poor plasma by Coagulation assay PROTHROMBIN TIME/PT Lab Routine Advanced hepatic fibrosis Expected: 06/28/2023 (Approximate), Expires: 09/27/2023 [facility] Work Phone: Comment on above: Expected: 06/28/2023 (Approximate), Expi res: 09/27/2023 Start: 06-28-2023 End: 04-05-2024 US ABD RIGHT UPPER QUADRANT US ABD RIGHT UPPER QUADRANT Radiology Routine Advanced hepatic fibrosis Expected: 06/28/2023 (Approximate), Expires: 04/05/2024 [facility] Work Phone: Comment on above: Expected: 06/28/2023 (Approximate), Expi res: 04/05/2024 Start: 06-28-2023 End: 04-05-2024 Us abdominal real time w/image limited US ABD SPLEEN Radiology Routine Advanced hepatic fibrosis Expected: 06/28/2023 (Approximate), Expires: 04/05/2024 [facility] Work Phone: Comment on above: Expected: 06/28/2023 (Approximate), Expi res: 04/05/2024 Start: 06-24-2023 ANNUAL PCP TEAM CHRONIC DISEASE VISIT ANNUAL PCP TEAM CHRONIC DISEASE VISIT [facility] Start: 05-25-2023 End: 08-24-2023 CBC W Auto Differential panel - Blood CBC + DIFF Lab Routine Gallstones Nonalcoholic steatohepatitis (NAVA) Expected: 05/25/2023, Expires: 08/24/2023 [facility] Work Phone: Comment on above: Expected: 05/25/2023, Expires: 4 Start: 05-25-2023 End: 08-24-2023 Comprehensive metabolic 2000 panel - Serum or Plasma COMP METABOLIC PANEL Lab Routine Gallstones Nonalcoholic steatohepatitis (NAVA) Expected: 05/25/2023, Expires: 08/24/2023 [facility] Work Phone: Comment on above: Expected: 05/25/2023, Expires: 4 Start: 05-17-[address] [facility] Start: 05-17-2023 Screening for malignant neoplasm of breast Mammogram Screening [facility] Start: 05-12-2023 ANNUAL PCP TEAM CHRONIC DISEASE VISIT ANNUAL PCP TEAM CHRONIC DISEASE VISIT [facility] Start: 01-26-2023 End: 04-27-2023 ALPHA 1 ANTITRYP PHEN/GENOTYPE ALPHA 1 ANTITRYP PHEN/GENOTYPE Lab Routine Advanced hepatic fibrosis Expected: 01/26/2023, Expires: 04/27/2023 [facility] Work Phone: Comment on above: Expected: 01/26/2023, Expires: 4 Start: 01-26-2023 End: 04-27-2023 Alpha 1 antitrypsin [Mass/volume] in Serum or Plasma [id number] Lab Routine Advanced hepatic fibrosis Expected: 01/26/2023, Expires: 04/27/2023 [facility] Work Phone: Comment on above: Expected: 01/26/2023, Expires: 4 Start: 01-26-2023 End: 04-27-2023 KRISTINE BY IFA WITH REFLEX KRISTINE BY IFA WITH REFLEX Lab Routine Advanced hepatic fibrosis Expected: 01/26/2023, Expires: 04/27/2023 [facility] Work Phone: Comment on above: Expected: 01/26/2023, Expires: 4 Start: 01-26-2023 End: 04-27-2023 Basic metabolic 2000 panel - Serum or Plasma BASIC METABOLIC PNL Lab Routine Advanced hepatic fibrosis Expected: 01/26/2023, Expires: 04/27/2023 [facility] Work Phone: Comment on above: Expected: 01/26/2023, Expires: Start: 01-26-2023 End: 04-27-2023 CBC W Auto Differential panel - Blood CBC + DIFF Lab Routine Advanced hepatic fibrosis Expected: 01/26/2023, Expires: 04/27/2023 [facility] Work Phone: Comment on above: Expected: 01/26/2023, Expires: Start: 01-26-2023 End: 04-27-2023 Ceruloplasmin [Mass/volume] in Serum or Plasma CERULOPLASMIN BLD Lab Routine Advanced hepatic fibrosis Expected: 01/26/2023, Expires: 04/27/2023 [facility] Work Phone: Comment on above: Expected: 01/26/2023, Expires: 4 Start: 01-26-2023 End: 04-27-2023 Chronic hepatitis differentiation between hepatitis B and C virus panel - Serum or Plasma HEP REMOTE PANEL BL Lab Routine Advanced hepatic fibrosis Expected: 01/26/2023, Expires: 04/27/2023 [facility] Work Phone: Comment on above: Expected: 01/26/2023, Expires: 4 Start: 01-26-2023 End: 04-27-2023 Ferritin [Mass/volume] in Serum or Plasma FERRITIN BLD Lab Routine Advanced hepatic fibrosis Expected: 01/26/2023, Expires: 04/27/2023 [facility] Work Phone: Comment on above: Expected: 01/26/2023, Expires: 4 Start: 01-26-2023 End: 04-27-2023 Hemoglobin A1c in Blood HGB A1C Lab Routine Advanced hepatic fibrosis Expected: 01/26/2023, Expires: 04/27/2023 [facility] Work Phone: Comment on above: Expected: 01/26/2023, Expires: 4 Start: 01-26-2023 End: 04-27-2023 Hepatic function 2000 panel - Serum or Plasma HEPATIC FUNCTION PNL Lab Routine Advanced hepatic fibrosis Expected: 01/26/2023, Expires: 04/27/2023 [facility] Work Phone: Comment on above: Expected: 01/26/2023, Expires: 4 Start: 01-26-2023 End: 04-27-2023 HEPATITIS A ANTIBODY, IGG HEPATITIS A ANTIBODY, IGG Lab Routine Advanced hepatic fibrosis Expected: 01/26/2023, Expires: 04/27/2023 [facility] Work Phone: Comment on above: Expected: 01/26/2023, Expires: 4 Start: 01-26-2023 End: 04-27-2023 HFE gene targeted mutation analysis in Blood or Tissue by Molecular genetics method HFE (HEMOCHROMATOSIS) Lab Routine Advanced hepatic fibrosis Expected: 01/26/2023, Expires: 04/27/2023 [facility] Work Phone: Comment on above: Expected: 01/26/2023, Expires: 4 Start: 01-26-2023 End: 04-27-2023 Iron and Iron binding capacity panel - Serum or Plasma IRON + TIBC Lab Routine Advanced hepatic fibrosis Expected: 01/26/2023, Expires: 04/27/2023 [facility] Work Phone: Comment on above: Expected: 01/26/2023, Expires: 4 Start: 01-26-2023 End: 04-27-2023 Lipid 1996 panel - Serum or Plasma LIPID PANEL BASIC Lab Routine Advanced hepatic fibrosis Expected: 01/26/2023, Expires: 04/27/2023 [facility] Work Phone: Comment on above: Expected: 01/26/2023, Expires: 4 Start: 01-26-2023 End: 04-27-2023 LIVER FIBROSIS AND ACTIVITY LIVER FIBROSIS AND ACTIVITY Lab Routine Advanced hepatic fibrosis Expected: 01/26/2023, Expires: 04/27/2023 [facility] Work Phone: Comment on above: Expected: 01/26/2023, Expires: 4 Start: 01-26-2023 End: 04-27-2023 Liver kidney microsomal Ab [Titer] in Serum by Immunofluorescence LKM AB Lab Routine Advanced hepatic fibrosis Expected: 01/26/2023, Expires: 04/27/2023 [facility] Work Phone: Comment on above: Expected: 01/26/2023, Expires: 4 Start: 01-26-2023 End: 04-27-2023 Mitochondria Ab [Presence] in Serum by Immunofluorescence MITOCHONDRIAL M2 IGG SERUM Lab Routine Advanced hepatic fibrosis Expected: 01/26/2023, Expires: 04/27/2023 [facility] Work Phone: Comment on above: Expected: 01/26/2023, Expires: 4 Start: 01-26-2023 End: 04-27-2023 PHOSPHATIDYLETHANOL (PETH) PHOSPHATIDYLETHANOL (PETH) Lab Routine Advanced hepatic fibrosis Expected: 01/26/2023, Expires: 04/27/2023 [facility] Work Phone: Comment on above: Expected: 01/26/2023, Expires: 4 Start: 01-26-2023 End: 04-27-2023 PT panel - Platelet poor plasma by Coagulation assay PROTHROMBIN TIME/PT Lab Routine Advanced hepatic fibrosis Expected: 01/26/2023, Expires: 04/27/2023 [facility] Work Phone: Comment on above: Expected: 01/26/2023, Expires: 4 Start: 01-26-2023 End: 04-27-2023 Smooth muscle Ab [Presence] in Serum SMOOTH MUSCLE AB SCR Lab Routine Advanced hepatic fibrosis Expected: 01/26/2023, Expires: 04/27/2023 [facility] Work Phone: Comment on above: Expected: 01/26/2023, Expires: 4 Start: 12-20-2022 End: 01-03-2023 COVID & INFLUENZA A/B & RSV NAAT, ROUTINE [facility] Work Phone: Comment on above: Expected: 12/20/2022, Expires: 3 Start: 12-10-[address] [facility] Start: 2022 ANNUAL PCP TEAM CHRONIC DISEASE VISIT ANNUAL PCP TEAM CHRONIC DISEASE VISIT [facility] Start: 02-03-[address] [facility] Start: 01-30-2022 ANNUAL PCP TEAM CHRONIC DISEASE VISIT ANNUAL PCP TEAM CHRONIC DISEASE VISIT [facility] Start: 01-30-2022 COLORECTAL CANCER SCREENING COLORECTAL CANCER SCREENING [facility] Comment on above: Postponed from 11/24/2015 (Declined at t his time) Start: 01-30-2022 ONE PNEUMOVAX PRIOR TO AGE 65 ONE PNEUMOVAX PRIOR TO AGE 65 [facility] Comment on above: Postponed from 1989 (Declined at t his time) Start: 01-30-2022 PNEUMOCOCCAL (1 - PCV) PNEUMOCOCCAL (1 - PCV) [facility] Comment on above: Postponed from 1976 (Declined at t his time) Start: 01-30-2022 SHINGRIX VACCINE (1 of 2) SHINGRIX VACCINE (1 of 2) [facility] Comment on above: Postponed from 2020 (Declined at t his time) Start: 01-18-2022 End: 03-20-2022 Hemoglobin A1c in Blood HGB A1C Lab Routine Obesity, Class III, BMI 40-49.9 (morbid obesity) (HCC) Elevated fasting glucose Expected: 01/18/2022, Expires: 03/20/2022 [facility] Work Phone: Comment on above: Expected: 01/18/2022, Expires: 2 Start: 01-18-2022 End: 03-20-2022 Thyrotropin [Units/volume] in Serum or Plasma TSH BLD Lab Routine Mike's disease Expected: 01/18/2022, Expires: 03/20/2022 [facility] Work Phone: Comment on above: Expected: 01/18/2022, Expires: 2 Start: 01-18-2022 End: 03-20-2022 Thyroxine (T4) free [Mass/volume] in Serum or Plasma T4 FREE/FREE THYROX Lab Routine Mike's disease Expected: 01/18/2022, Expires: 03/20/2022 [facility] Work Phone: Comment on above: Expected: 01/18/2022, Expires: 2 Start: 01-18-2022 End: 03-20-2022 Triiodothyronine (T3) [Mass/volume] in Serum or Plasma T3 BLD Lab Routine Mike's disease Expected: 01/18/2022, Expires: 03/20/2022 [facility] Work Phone: Comment on above: Expected: 01/18/2022, Expires: 2 Start: 12-10-[address] [facility] Start: 11-02-2021 End: 01-02-2022 25-hydroxyvitamin D3 [Mass/volume] in Serum or Plasma VITAMIN D 25 HYDROXY Lab Routine Vitamin D deficiency Expected: 11/02/2021, Expires: 01/02/2022 [facility] Work Phone: Comment on above: Expected: 11/02/2021, Expires: 2 Start: 11-02-2021 End: 01-02-2022 CBC panel - Blood by Automated count CBC Lab Routine Mixed hyperlipidemia Expected: 11/02/2021, Expires: 01/02/2022 [facility] Work Phone: Comment on above: Expected: 11/02/2021, Expires: 2 Start: 11-02-2021 End: 01-02-2022 Comprehensive metabolic 2000 panel - Serum or Plasma COMP METABOLIC PANEL Lab Routine Hypokalemia Mixed hyperlipidemia Expected: 11/02/2021, Expires: 01/02/2022 [facility] Work Phone: Comment on above: Expected: 11/02/2021, Expires: 2 Start: 11-02-2021 End: 01-02-2022 Lipid 1996 panel - Serum or Plasma LIPID PANEL BASIC Lab Routine Mixed hyperlipidemia Expected: 11/02/2021, Expires: 01/02/2022 [facility] Work Phone: Comment on above: Expected: 11/02/2021, Expires: 2 Start: 11-02-2021 End: 01-02-2022 Thyrotropin [Units/volume] in Serum or Plasma TSH BLD Lab Routine Mike's disease Expected: 11/02/2021, Expires: 01/02/2022 [facility] Work Phone: Comment on above: Expected: 11/02/2021, Expires: 2 Start: 11-02-2021 End: 01-02-2022 Thyroxine (T4) free [Mass/volume] in Serum or Plasma T4 FREE/FREE THYROX Lab Routine Mike's disease Expected: 11/02/2021, Expires: 01/02/2022 [facility] Work Phone: Comment on above: Expected: 11/02/2021, Expires: 2 Start: 11-02-2021 End: 01-02-2022 Triiodothyronine (T3) [Mass/volume] in Serum or Plasma T3 BLD Lab Routine Mike's disease Expected: 11/02/2021, Expires: 01/02/2022 [facility] Work Phone: Comment on above: Expected: 11/02/2021, Expires: 2 Start: 10-29-2021 COVID-19 VACCINE (#1) COVID-19 VACCINE (#1) [facility] Comment on above: Postponed from 11/24/1975 (Declined at t his time) Start: 10-29-2021 COVID-19 VACCINE (1) COVID-19 VACCINE (1) [facility] Comment on above: Postponed from 11/24/1975 (Declined at t his time) Start: 10-08-2021 Influenza vaccination INFLUENZA (#1) [facility] Comment on above: Postponed from 12/10/2020 (Declined at t his time) Start: 2020 Pneumococcal Vaccine: 50+ (1 of 1 - PCV) Pneumococcal Vaccine: 50+ (1 of 1 - PCV) [facility] Start: 2020 SHINGRIX VACCINE (1 of 2) SHINGRIX VACCINE (1 of 2) [facility] Start: 11-24-2015 COLOGUARD (FIT-DNA) COLOGUARD (FIT-DNA) [facility] Start: 11-24-[address] [facility] Start: 11-24-2015 COLORECTAL CANCER SCREENING COLORECTAL CANCER SCREENING [facility] Start: 11-24-[address] [facility] Start: 11-24-2015 FECAL OCCULT BLOOD FECAL OCCULT BLOOD [facility] Start: 11-24-2015 Screening for malignant neoplasm of colon [facility] Start: 11-24-[address] [facility] Start: 1989 Hepatitis B Vaccine (1 of 3 - 19+ 3-dose series) Hepatitis B Vaccine (1 of 3 - 19+ 3-dose series) [facility] Start: 1976 PNEUMOCOCCAL (1 - PCV) PNEUMOCOCCAL (1 - PCV) [facility] Start: 1976 Pneumococcal vaccination Pneumococcal Vaccine (1 - PCV) [facility] Start: 05-26-1971 COVID-19 VACCINE (#1) COVID-19 VACCINE (#1) [facility] Start: 1970 HEPATITIS B (1 of 3 - 3-dose series) HEPATITIS B (1 of 3 - 3-dose series) [facility] Start: 1970 Hepatitis B Vaccine (1 of 3 - 3-dose series) Hepatitis B Vaccine (1 of 3 - 3-dose series) [facility] End: 02-03-2025 DBT Breast - bilateral screening JARETH SCREENING W JEFE Radiology Routine Encounter for screening mammogram for breast cancer Well adult exam 1 Occurrences starting 01/05/2024 until 02/03/2025 [facility] Work Phone: Comment on above: 1 Occurrences starting 01/05/2024 until 02/03/2025 DBT Breast - bilater al screening JARETH SCREENING W JEFE Radiology Routine Encounter for screening mammogram for breast cancer 12/25/2024 1:31 PM EDT [facility] Work Phone: DDI VIBRATION CONTRO LLED TRANSIENT ELASTOGRAPHY (VCTE) DDI VIBRATION CONTROLLED TRANSIENT ELASTOGRAPHY (VCTE) Endoscopy Routine Hepatic steatosis Ordered: 12/29/2022 [facility] Work Phone: Comment on above: Ordered: 12/29/2022 End: 05-25-2024 ECG COMPLETE ECG COMPLETE ECG Routine Gallstones 1 Occurrences starting 05/25/2023 until 05/25/2024 [facility] Work Phone: Comment on above: 1 Occurrences starting 05/25/2023 until 05/25/2024 End: 06-24-2023 Echocardiography ECHO Cardiology Routine Chest pain, unspecified type Shortness of breath Chest pressure 1 Occurrences starting 06/23/2022 until 06/24/2023 [facility] Work Phone: Comment on above: 1 Occurrences starting 06/23/2022 until 06/24/2023 IR TRANSJUGULAR LIVE R BX W/PRESS IR TRANSJUGULAR LIVER BX W/PRESS Radiology Routine Advanced hepatic fibrosis Ordered: 03/07/2023 [facility] Work Phone: Comment on above: Ordered: 03/07/2023 End: 04-10-2023 JARETH SCREENING JARETH SCREENING Radiology Routine Encounter for screening mammogram for breast cancer 1 Occurrences starting 03/11/2022 until 04/10/2023 [facility] Work Phone: Comment on above: 1 Occurrences starting 03/11/2022 until 04/10/2023 End: 06-11-2023 METHACHOLINE CHALLENGE METHACHOLINE CHALLENGE PFT Routine Mild persistent asthma without complication Wheezing SOB (shortness of breath) on exertion Decreased lung sounds 1 Occurrences starting 05/12/2022 until 06/11/2023 [facility] Work Phone: Comment on above: 1 Occurrences starting 05/12/2022 until 06/11/2023 MG Breast Screening JARETH SCREENIN G Radiology Routine Encounter for screening mammogram for breast cancer 06/22/2023 1:26 PM EDT [facility] Work Phone: End: 06-11-2023 PAP TITRATION PSG (CPAP, BIPAP, ASV) PAP TITRATION PSG (CPAP, BIPAP, ASV) Procedures Routine SOB (shortness of breath) on exertion SHAINA (obstructive sleep apnea) 1 Occurrences starting 05/12/2022 until 06/11/2023 [facility] Work Phone: Comment on above: 1 Occurrences starting 05/12/2022 until 06/11/2023 Patient Education ED Muscle Stra in, Extremity [facility] Work Phone: Patient referral [facility] Work Phone: End: 12-16-2023 PVR ANK PRESS PANDA VAS LAB PVR ANK PRESS PANDA VAS LAB Vascular Lab Routine Foot pain, bilateral Bilateral cold feet 1 Occurrences starting 12/15/2022 until 12/16/2023 [facility] Work Phone: Comment on above: 1 Occurrences starting 12/15/2022 until 12/16/2023 ROUTINE FLU A/B + RSV ROUTINE FL U A/B + RSV Lab Routine Acute cough 12/20/2022 6:55 PM EDT [facility] Work Phone: SARS-CoV-2 (COVID-19 ) RNA [Presence] in Respiratory specimen by FANY with probe detection COVID NAAT, ROUTINE Microbiology Routine Acute cough 12/20/2022 6:55 PM EDT [facility] Work Phone: End: 06-11-2023 SPIROMETRY - BASELINE AND POST DILATOR SPIROMETRY - BASELINE AND POST DILATOR PFT Routine Mild persistent asthma without complication Wheezing SOB (shortness of breath) on exertion Decreased lung sounds 1 Occurrences starting 05/12/2022 until 06/11/2023 [facility] Work Phone: Comment on above: 1 Occurrences starting 05/12/2022 until 06/11/2023 SURGICAL PATHOLOGY [facility] Work Phone: Comment on above: Release Upon Ordering for 1 Occurrences starting 02/25/2023, 1 completed End: 06-23-2024 XR Chest 2 Views XR CHEST 2V FRONTAL/LAT Radiology Routine Gallstones 1 Occurrences starting 05/25/2023 until 06/23/2024 [facility] Work Phone: Comment on above: 1 Occurrences starting 05/25/2023 until 06/23/2024 End: 08-17-2025 XR Foot - bilateral AP and Lateral and oblique XR FOOT GENERAL 3V AP/LAT/OBL BILATERAL Radiology Routine Foot pain, bilateral 1 Occurrences starting 07/18/2024 until 08/17/2025 [facility] Comment on above: 1 Occurrences starting 07/18/2024 until 08/17/2025 XR Foot - bilateral AP and Lateral and oblique XR FOOT GENERAL 3V AP/LAT/OBL BILATERAL Radiology Routine Foot pain, bilateral 07/18/2024 2:[address] [facility] End: 01-14-2024 XR FOOT GENERAL 3V AP/LAT/OBL BILATERAL XR FOOT GENERAL 3V AP/LAT/OBL BILATERAL Radiology Routine Foot pain, bilateral Bilateral cold feet 1 Occurrences starting 12/15/2022 until 01/14/2024 [facility] Work Phone: Comment on above: 1 Occurrences starting 12/15/2022 until 01/14/2024 XR FOOT GENERAL 3V AP/LAT/OBL BILATERAL XR FOOT GENERAL 3V AP/LAT/OBL BILATERAL Radiology Routine Foot pain, bilateral Bilateral cold feet 12/15/2022 10:44 AM EDT [facility] Work Phone: [facility] [place] [facility] Immunizations Immunization Date Immunization Notes Care Provider [facility] System 01-05-2024 influenza, seasonal, injectable Adia Robles CONSULTING ACTUARY.FLANGING ROLL OPERATOR Work Phone: [facility] 01-05-2024 influenza virus vaccine, unspecified formulation Adia Travis CONSULTING ACTUARY.FLANGING ROLL OPERATOR Work Phone: [facility] 02-02-2018 influenza, injectabl e, quadrivalent, contains preservative Deisilouie Greene CONSULTING ACTUARY.FLANGING ROLL OPERATOR Work Phone: [facility] 02-02-2018 influenza virus vaccine, unspecified formulation Sofy Frazier CONSULTING ACTUARY.FLANGING ROLL OPERATOR Work Phone: [facility] 02-23-2017 influenza, injectabl e, quadrivalent, contains preservative Deisi Zurawick CONSULTING ACTUARY.[facility] Work Phone: [facility] 02-04-2016 influenza, injectabl e, quadrivalent, contains preservative Desii Zurawick CONSULTING ACTUARY.[facility] Work Phone: [facility] Work Phone: 02-11-2015 influenza, injectabl e, quadrivalent, contains preservative Deisi Zurawick CONSULTING ACTUARY.[facility] Work Phone: [facility] Work Phone: 02-11-2015 influenza, seasonal, injectable Deisi Zurawick CONSULTING ACTUARY.[facility] Work Phone: [facility] Work Phone: 01-16-2015 tetanus toxoid, redu toño diphtheria toxoid, and acellular pertussis vaccine, adsorbed Deisi Zurawick CONSULTING ACTUARY.[facility] Work Phone: [facility] Work Phone: 01-15-2015 tetanus toxoid, redu toño diphtheria toxoid, and acellular pertussis vaccine, adsorbed [facility] Payers Date Payer Category Payer Self-pay [id number] 2023 Unknown [id number] 2023 [employer] [facility] BLUE CARD PPO OOS [id number] 2023 Unknown [id number] 2022 Unknown [id number] 2021 Unknown [employer] PPO [id number] 2021-Present [phone] [address] [place] [address] PPO [id number] 2018 Unknown 2012 Medicaid [id number] 1970 Unknown [id number] Unknown [id number] Unknown [id number] Unknown [id number] Unknown [id number] Unknown [id number] Social History Date Type Detail Facility Start: 06-05-2018 End: 2021 Tobacco smoking status MEIS Never smoked tobacco [facility] Start: 04-09-2021 End: 11-21-2024 Alcohol intake Current non-drinker of alcohol (finding) [facility] Start: 12-06-2019 End: 05-12-2022 History SDOH Alcohol Frequency 3 [facility] Start: 12-06-2019 End: 05-12-2022 History SDOH Alcohol Std Drinks 2 [facility] Start: 12-06-2019 End: 05-12-2022 History SDOH Social Connections Meetings [address] [facility] Start: 12-06-2019 End: 05-12-2022 History SDOH Physical Activity DPW [address] [facility] Start: 12-06-[address] [facility] Start: 06-05-2018 End: 2021 Tobacco Comment No ETS in childhood or current home. [facility] Start: 1970 Sex Assigned At Female [facility] Start: 09-01-2020 End: 2021 Exposure to SARS-CoV-2 (event) Not sure [facility] Work Phone: Start: 06-05-2018 End: 2021 Tobacco use and exposure Smokeless tobacco non-user [facility] Start: 05-12-2022 History SDOH Stress 4 [facility] Start: 05-12-2022 End: 11-18-2024 History of [address] [facility] Start: 05-12-2022 End: 11-18-2024 Social connection and isolation panel [facility] Do you belong to any clubs or organizations such as lutheran groups, unions, fraternal or athletic groups, or school groups? No [facility] Are you now , , , , never or living with a partner? [facility] How often to you hav e a drink containing alcohol? Monthly or less [facility] How many standard dr inks containing alcohol do you have on a typical day? [address] [facility] How often do you hav e 6 or more drinks on 1 occasion? Never [facility] How hard is it for y ou to pay for the very basics like food, housing, medical care, and heating Somewhat hard [facility] Start: 03-12-2012 Adult Depression Screening Assessment 2 [facility] Do you feel stress - tense, restless, nervous, or anxious, or unable to sleep at night because your mind is troubled all the time - these days [OSQ] Rather much [facility] (I/We) worried whemeenu er (my/our) food would run out before (I/we) got money to buy more. Often true [facility] The food that (I/we) bought just didn't last, and (I/we) didn't have money to get more. Sometimes true [facility] In the past 12 month s, was there a time when you were not able to pay the mortgage or rent on time? Yes [facility] Start: 12-04-2018 Gender identity Identifies as female gender (finding) [facility] Start: 12-04-2018 Sexual orientation Heterosexual (finding) [facility] Start: 07-29-2023 Tobacco smoking status NHIS Unknown if ever smoked [facility] Start: 03-03-2018 Non-smoker [facility] How hard is it for y ou to pay for the very basics like food, housing, medical care, and heating Very hard [facility] Do you feel stress - tense, restless, nervous, or anxious, or unable to sleep at night because your mind is troubled all the time - these days [OSQ] Very much [facility] How often to you hav e a drink containing alcohol? 2-[address] [facility] How many standard dr inks containing alcohol do you have on a typical day? [address] [facility] How often do you hav e 6 or more drinks on 1 occasion? Less than monthly [facility] How hard is it for y ou to pay for the very basics like food, housing, medical care, and heating Hard [facility] Do you feel stress - tense, restless, nervous, or anxious, or unable to sleep at night because your mind is troubled all the time - these days [OSQ] To some extent [facility] Functional Status Date Assessment Result Facility 09-15-2016 Are you deaf, or do you have serious difficulty hearing No 09/15/2016 8:30 PM EDT Aliyah Pa (Rn)(Hist), RN No [facility] 09-15-2016 Are you blind, or do you have serious difficulty seeing, even when wearing glasses No 09/15/2016 8:30 PM EDT Aliyah Pa (Rn)(Hist), RN No [facility] 09-15-2016 Do you have serious difficulty walking or climbing stairs No 09/15/2016 8:30 PM EDT Aliyah Pa (Rn)(Hist), RN No [facility] 09-15-2016 Do you have difficul ty dressing or bathing No 09/15/2016 8:30 PM EDT Aliyah Pa (Rn)(Hist), RN No [facility] 09-15-2016 Because of a physica l, mental, or emotional condition, do you have difficulty doing errands alone such as visiting a physician's office or shopping No 09/15/2016 8:30 PM EDT Aliyah PaRn)(Hist), RN No [facility] Mental Status Date Assessment Result Facility 09-15-2016 Because of a physica l, mental, or emotional condition, do you have serious difficulty concentrating, remembering, or making decisions No 09/15/2016 8:30 PM EDT Aliyah PaRn)(Hist), RN No [facility] Clinical Notes 04-25-2017 to 02-19-2025 Shasta Sanchez RT(R) - 12/25/2024 12:50 PM EDTTelephone Encounter - Jolly Saavedra MA - 12/04/2024 10:14 AM EDTTelephone Encounter - Jolly Saavedra MA - 12/04/2024 10:14 AM EDT Note Date & Type Note Facility 02-19-2025 Note HNO ID: [id number] Author: ADIA ROBLES APRN.FLANGING ROLL OPERATOR Service: ? Author Type: Nurse Practitioner Type: Progress Notes Filed: 02/19/2025 16:58 Note Text: 02/19/2025 Recording using AppUpper - ASO software for draft documentation of the visit was discussed with the patient/authorized arborist representative; all questions welcomed and answered. Patient/authorized arborist representative agreed to proceed HPI: The patient is a 54-year-old female with T2DM, hypothyroidism, asthma, MDD, and PAOLA, presenting for evaluation of worsening anxiety, irritability, and vasomotor symptoms. Ronnie Katz is a 54-year-old female with a history of major depressive disorder, presenting for increased anxiety and irritability. Anxiety and Irritability: - Increased anxiety and irritability, described as feeling overstimulated and imbalanced. - Symptoms are constant and occur at home and work. - Experiences snappy behavior and a desire to be left alone. - No recent panic attacks; denies suicidal ideation. - No recent changes in stress levels; recent positive life events include purchasing a new house, 's cancer-free diagnosis, and financial stability. - Suspects symptoms may be related to menopause; reports hot flashes and sweating. - Taking Effexor 150 mg and 75 mg daily for total 225mg daily; previously attempted to wean off but experienced severe depressive symptoms. 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 - Reports brain fog and fear of losing control; family history of dementia and Alzheimer's in grandmother and has this fear at times. Weight Management: - Taking Adipex (phentermine) and metformin. - Previously lost weight while taking probiotics; reports weight gain after stopping probiotics. - Takes phentermine around dinner time; reports feeling tired and falling asleep while watching TV. PAST MEDICAL HISTORY Diagnosis Date Diastasis of rectus abdominis 12/11/2015 Dysthymic disorder Depression (non-psychotic) Environmental allergies spring. Gallstones Genital herpes, unspecified 01/09/2007 HSV (herpes simplex virus) anogenital infection 1990 Hypercholesteremia 05/2015 Leukocytoclastic vasculitis (HCC) 2012 dx by Aliyah Wallace Onychomycosis SHAINA (obstructive sleep apnea) 04/13/2017 Persistent asthma without complication (HCC) 06/12/2018 + JADA 06/2018, chronic cough, abnormal RAST. Current Outpatient Medications on File Prior to Visit Medication Sig levothyroxine (SYNTHROID) 88 mcg tablet Take 1 tablet by mouth once daily potassium chloride (K-TAB) 10 mEq tablet Take 1 tablet by mouth daily with breakfast. metFORMIN ER (GLUCOPHAGE XR) 500 mg 24 hr tablet Take 2 tablets by mouth once daily. With dinner. pantoprazole DR (PROTONIX) 40 mg tablet Take 1 tablet by mouth once daily. loratadine (CLARITIN) 10 mg tablet Take 1 tablet by mouth once daily. Calcium-Cholecalciferol, D3, 600 mg-10 mcg (400 unit) cap Take 1 capsule by mouth once daily. budesonide-formoterol (SYMBICORT) 80-4.5 mcg/actuation inhaler Inhale 2 Puffs as instructed twice daily. albuterol HFA (PROVENTIL HFA, VENTOLIN HFA) 90 mcg/actuation inhaler Inhale 2 Puffs as instructed every 4 hours as needed. cholecalciferol (VITAMIN D3) 50 mcg (2,000 unit) tablet Take 1 tablet by mouth once daily. CPAP Initiate CPAP @ 10 cm of water with humidification. Mask (per patient preference) optional chin strap (if indicated) , filters, tubing, humidifier and lifetime supplies. COMPOUNDED PRESCRIPTION CPAP Supplies; hose; mask DX: SHAINA multivitamins(DAILY VITAMIN TAB) Take one(1) tablet daily. No current facility-administered medications on file prior to visit. Review of Systems: Constitutional: (+) fatigue, (+) diaphoresis Musculoskeletal: (+) nocturnal foot cramps Neurological: (+) cognitive fog, (+) memory lapses Psychiatric: (+) anxiety, (+) irritability, (+) angry mood, (+) insomnia with frequent awakenings, (-) suicidal ideation Endocrine: (+) hot flashes Physical Exam: BP 110/72 Pulse 87 Wt 110.3 kg (243 lb 3.2 oz) LMP 11/16/2009 SpO2 96% BMI 41.78 kg/m? GENERAL: NAD, alert and oriented, well groomed. SKIN: Unremarkable, no rash or skin lesions. HEAD: Normocephalic. LUNGS: Clear to auscultation bilaterally, no wheezes/rhonchi/rales. HEART: Regular rate and rhythm, no murmurs. No ectopy. EXTREMITIES: Normal, no deformities, no skin discoloration, no edema. PSYCHIATRIC: pleasant, cooperative, anxious, tearful Diagnostics Reviewed: Labs: - Potassium: borderline low in November 2024 Assessment/Plan: 1. Irritability (R45.4) 2. Anxiety disorder with panic attacks (F41.9) 3. Anxiety with depression (F41.8) 4. Brain fog (R41.89) 5. Primary insomnia (F51.01) - Chronic anxiety and depression with recent increase in irritability, anxiety, and cognitive fog; no current suicidal ideation. - On venlafaxine 225 mg enmanuel (more content not included)... [facility] 12-25-2024 History of Presen t illness Narrative Radiology Service Progress Note PATIENT NAME: Ronnie Katz DATE OF SERVICE: December 25, 2024 TIME: 1:53 PM PATIENT IDENTITY VERIFICATION COMPLETED USING TWO (2) IDENTIFIERS: Name and Date of confirmed by patient verbally. FALL SCREENING: Has the patient had 2 falls in the last year or 1 fall with injury or currently using an Ambulatory Assistive Device (Walker, Cane, Wheelchair, Crutches, etc.)? No PATIENT GENDER DATA: Assigned female at . status: : No status: NO. PATIENT RELEVANT IMPLANT DATA REVIEWED: Not Applicable PATIENT PRESENTS WITH AN IMPLANTABLE OR ATTACHED CO TEACHER: No RADIOLOGY DEPARTMENT: Mammography PERIPHERAL IV DATA: Not applicable SIGNED BY: RT Tamy(Amalia) December 25, 2024 1:53 PM documented in this encounter [facility] 12-25-2024 Note HNO ID: [id number] Author: SHASTA SANCHEZ RT(R) Service: ? Author Type: Technologist Type: Progress Notes Filed: 12/25/2024 13:53 Note Text: Radiology Service Progress Note PATIENT NAME: Ronnie Katz DATE OF SERVICE: December 25, 2024 TIME: 1:53 PM PATIENT IDENTITY VERIFICATION COMPLETED USING TWO (2) IDENTIFIERS: Name and Date of confirmed by patient verbally. FALL SCREENING: Has the patient had 2 falls in the last year or 1 fall with injury or currently using an Ambulatory Assistive Device (Walker, Cane, Wheelchair, Crutches, etc.)? No PATIENT GENDER DATA: Assigned female at . status: : No status: NO. PATIENT RELEVANT IMPLANT DATA REVIEWED: Not Applicable PATIENT PRESENTS WITH AN IMPLANTABLE OR ATTACHED CO TEACHER: No RADIOLOGY DEPARTMENT: Mammography PERIPHERAL IV DATA: Not applicable SIGNED BY: RT Tamy(Amalia) December 25, 2024 1:53 PM [facility] 12-04-2024 Telephone encounter Note Prescription Refill Information The patient has been identified by name and date of : Yes Caregiver verified no other encounters exist for this prescription request: Yes Caregiver confirmed with patient/requestor that no other refills are due, in the near future, with this provider at this time: Yes The last office visit in the department: 11/19/24 Does the patient have a future office visit with this provider/department: Yes Requested Prescriptions Pending Prescriptions Disp Refills venlafaxine ER (EFFEXOR XR) 150 mg 24 hr capsule [Pharmacy Med Name: Venlafaxine HCl ER 150 MG Oral Capsule Extended Release 24 Hour] 90 capsule 0 Sig: Take 1 capsule by mouth once daily venlafaxine ER (EFFEXOR XR) 75 mg 24 hr capsule [Pharmacy Med Name: Venlafaxine HCl ER 75 MG Oral Capsule Extended Release 24 Hour] 90 capsule 0 Sig: Take 1 capsule by mouth once daily Jolly Saavedra MA December 04, 2024 10:[address] [facility] 12-04-2024 Miscellaneous Notes Prescription Refill Information The patient has been identified by name and date of : Yes Caregiver verified no other encounters exist for this prescription request: Yes Caregiver confirmed with patient/requestor that no other refills are due, in the near future, with this provider at this time: Yes The last office visit in the department: 11/19/24 Does the patient have a future office visit with this provider/department: Yes Requested Prescriptions Pending Prescriptions Disp Refills venlafaxine ER (EFFEXOR XR) 150 mg 24 hr capsule [Pharmacy Med Name: Venlafaxine HCl ER 150 MG Oral Capsule Extended Release 24 Hour] 90 capsule 0 Sig: Take 1 capsule by mouth once daily venlafaxine ER (EFFEXOR XR) 75 mg 24 hr capsule [Pharmacy Med Name: Venlafaxine HCl ER 75 MG Oral Capsule Extended Release 24 Hour] 90 capsule 0 Sig: Take 1 capsule by mouth once daily Jolly Saavedra MA December 04, 2024 10:14 AM documented in this encounter [facility] 12-04-2024 Note Patient Outreach (FA MPWS) RONNIE KATZ ([id number]) 1970 F Date Time Provider Department 12/04/24 [facility] SWE[facility] During your visit today, we recorded the following information about you: Allergies As of Date: 12/04/2024 Noted Allergy Reaction PROZAC (FLUOXETINE HCL) 07/14/2011 1 - Mental Status Change Comments: Aggressive behavior, emotional Date Reviewed: 11/21/2024 Reviewed by: Jenifer Villa APRN.FLANGING ROLL OPERATOR - Fully Assessed Visit Diagnosis:Encounter for screening mammogram for breast cancer [Z12.31] Order(s):JARETH SCREENING W JEFE [[id number]] Order #: [id number] FUTURE Prescriptions as of 01/04/2025 - venlafaxine ER (EFFEXOR XR) 150 mg 24 hr capsule Take 1 capsule by mouth once daily - venlafaxine ER (EFFEXOR XR) 75 mg 24 hr capsule Take 1 capsule by mouth once daily - venlafaxine ER (EFFEXOR XR) 75 mg 24 hr capsule Take 1 capsule by mouth once daily. - Phentermine HCl 37.5 mg tablet Take 1 tablet by mouth once daily for 90 days. BMI 40.33 - potassium chloride (K-TAB) 10 mEq tablet Take 1 tablet by mouth daily with breakfast. - metFORMIN ER (GLUCOPHAGE XR) 500 mg 24 hr tablet Take 2 tablets by mouth once daily. With dinner. - levothyroxine (SYNTHROID) 88 mcg tablet Take 1 tablet by mouth once daily. - pantoprazole DR (PROTONIX) 40 mg tablet Take 1 tablet by mouth once daily. - loratadine (CLARITIN) 10 mg tablet Take 1 tablet by mouth once daily. - Calcium-Cholecalciferol, D3, 600 mg-10 mcg (400 unit) cap Take 1 capsule by mouth once daily. - dexAMETHasone 0.1 % ophthalmic solution Instill 1 drop into affected ear canal once daily as needed - traZODone (DESYREL) 50 mg tablet Take 1 tablet by mouth daily at bedtime. - furosemide (LASIX) 40 mg tablet Take 1 tablet by mouth two times a day. - budesonide-formoterol (SYMBICORT) 80-4.5 mcg/actuation inhaler Inhale 2 Puffs as instructed twice daily. - albuterol HFA (PROVENTIL HFA, VENTOLIN HFA) 90 mcg/actuation inhaler Inhale 2 Puffs as instructed every 4 hours as needed. - cholecalciferol (VITAMIN D3) 50 mcg (2,000 unit) tablet Take 1 tablet by mouth once daily. - CPAP Initiate CPAP @ 10 cm of water with humidification. Mask (per patient preference) optional chin strap (if indicated) , filters, tubing, humidifier and lifetime supplies. - COMPOUNDED PRESCRIPTION CPAP Supplies; hose; mask DX: SHAINA - multivitamins(DAILY VITAMIN TAB) Take one(1) tablet daily. 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 Abdominal pain, lower [R10.30] 09/04/2009 07/14/2011 Menorrhagia [N92.0] 09/04/2009 07/14/2011 Enlarged uterus [N85.2] 10/22/2009 07/14/2011 Pelvic pain 10/22/2009 07/14/2011 Anxiety [F41.9] 07/19/2011 Panic attack [F41.0] 07/19/2011 Diastasis of rectus abdominis [M62.08] 12/11/2015 04/13/2017 Carpal tunnel syndrome, bilateral [G56.03] 07/23/2016 Gastroesophageal reflux disease without esophag*09/10/2016 Medication monitoring encounter [Z51.81] 09/13/2016 04/13/2017 SHAINA (obstructive sleep apnea) [G47.33] 04/13/2017 Mixed hyperlipidemia [E78.2] 04/25/2017 Obesity, Class II, BMI 35-39.9 [E66.812] 04/25/2017 10/30/2020 Diastasis of rectus abdominis [M62.08] 11/01/2017 Vitamin D deficiency [E55.9] 11/01/2017 Elevated fasting glucose [R73.01] 11/01/2017 Plantar fasciitis [M72.2] 11/01/2017 Belching [R14.2] 11/01/2017 Rhus dermatitis [L25.5] 11/01/2017 Mild intermittent asthma, uncomplicated [J45.20]05/19/2018 Environmental allergies [Z91.09] Persistent asthma without complication [J45.909]06/12/2018 Fatty liver [K76.0] 12/31/2019 HSV (herpes simplex virus) anogenital infection*1990 Class 3 severe obesity with body mass index (BM*10/01/2020 Leukocytoclastic vasculitis (HCC) [M31.0] 10/29/2020 Malaise and fatigue [R53.81, R53.83] 10/30/2020 Positive KRISTINE (antinuclear antibody) [R76.8] 10/30/2020 Acute pain of right knee [M25.561] 10/30/2020 Myalgia [M79.10] 10/30/2020 Severe episode of recurrent major depressive di*10/30/2020 Anxiety with depression [F41.8] 10/31/2020 Swelling of both hands [M79.89] 08/18/2023 Encounter Status:Closed by [facility] PRODUSER on 01/04/25 [facility] 12-03-2024 Telephone encounter Note Prescription Refill Information The patient has been identified by name and date of : Yes Caregiver verified no other encounters exist for this prescription request: Yes Caregiver confirmed with patient/requestor that no other refills are due, in the near future, with this provider at this time: Yes The last office visit in the department: 11/19/24 Does the patient have a future office visit with this provider/department: Yes Requested Prescriptions Pending Prescriptions Disp Refills venlafaxine ER (EFFEXOR XR) 75 mg 24 hr capsule 90 capsule 1 Sig: Take 1 capsule by mouth once daily. Mindy Quintana LPN December 03, 2024 12:[address] [facility] 12-03-2024 Miscellaneous Notes Prescription Refill Information The patient has been identified by name and date of : Yes Caregiver verified no other encounters exist for this prescription request: Yes Caregiver confirmed with patient/requestor that no other refills are due, in the near future, with this provider at this time: Yes The last office visit in the department: 11/19/24 Does the patient have a future office visit with this provider/department: Yes Requested Prescriptions Pending Prescriptions Disp Refills venlafaxine ER (EFFEXOR XR) 75 mg 24 hr capsule 90 capsule 1 Sig: Take 1 capsule by mouth once daily. Mindy Quintana LPN December 03, 2024 12:35 PM documented in this encounter [facility] 11-19-2024 Instructions Jenifer Villa APRN.JENA - 11/19/2024 1:26 PM EDT Schedule your mammogram (at front office medical assistant or call) Get your labs drawn on way out documented in this encounter [facility] 11-19-2024 Note HNO ID: [id number] Author: JENIFER VILLA APRN.JENA Service: ? Author Type: Nurse Practitioner Type: Progress Notes Filed: 11/21/2024 16:39 Note Text: This is a 53 year old female who presents today with: Ronnie Katz is a 53-year-old female with a history of depression and hypothyroidism, presenting for a routine follow-up and medication management. HISTORY OF PRESENT ILLNESS: Depression: - Managed with Effexor 75 mg and 150 mg. - Intermittent thoughts of self-harm. States chronic thoughts of having to continue on through life, but hasn't had attempts or have any plans. - Denies any specific triggers for these thoughts, random. Feels her medications control things well and doesn't desire a change. Hypothyroidism: - Managed with Synthroid 75 mcg daily. - Last thyroid labs were elevated. Weight Management: - Taking phentermine, but ran out 2-3 weeks ago. - Lost 12 lbs since April, with 4 lbs lost since July. - Denies heart palpitations or other side effects from phentermine. - Taking an additional weight loss medication ordered online, more natural. 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 Most Recent 11/21/21 - 11/19/24 09/19/23 13:55 01/05/24 13:56 03/01/24 14:33 04/19/24 10:46 07/09/24 19:05 07/18/24 13:41 11/19/24 13:01 Weight 234 lb 12.8 oz (106.5 kg) 11/19/24 13:01 255 lb (115.7 kg) 241 lb 10 oz (109.6 kg) 238 lb 12.1 oz (108.3 kg) 246 lb 9.6 oz (111.9 kg) 241 lb 10 oz (109.6 kg) 238 lb 3.2 oz (108 kg) 234 lb 12.8 oz (106.5 kg) PAST MEDICAL HISTORY: PAST MEDICAL HISTORY[1] PAST SURGICAL HISTORY Procedure Laterality Date APPENDECTOMY CARPAL TUNNEL 2017 CARPAL TUNNEL Right 2018 CHOLECYSTECTOMY HX 07/05/2023 LIVER BIOPSY 07/05/2023 NEUROPLASTY AND/TRANSPOS MEDIAN NRV CARPAL TUNNE Right 09/13/2016 PAST SURGICAL HISTORY OF Right 02/2024 Knee clean up THYROID LEFT FINE NEEDLE ASPIRATION 08/02/2007 U/ S FNA left thyroid nodule TOTAL THYROID LOBECTOMY UNI W/WO ISTHMUSECTOMY 08/31/2007 LEFT VAGINAL HYSTERECTOMY UTERUS 250 GM/< 12/01/2009 TVH for fibroid, menorrhagia, adenomyosis ALLERGIES Prozac [Fluoxetine Hcl] MEDICATIONS CURRENT MEDICATIONS[2] FAMILY HISTORY[3] SOCIAL HISTORY[4] REVIEW OF SYSTEMS See HPI EXAM: BP 120/76 (BP Site: Left Arm, BP Position: Sitting, BP Cuff Size: Large Adult) Pulse 91 Temp 36.5 ?C (97.7 ?F) Resp 14 Ht 162.5 cm (5' 3.98) Wt 106.5 kg (234 lb 12.8 oz) LMP 11/16/2009 SpO2 97% BMI 40.33 kg/m? PHYSICAL EXAM: General Appearance: Well appearing, alert, in no acute distress, well-hydrated, well nourished.. Lungs: Lungs clear to auscultation. No wheezing, rhonchi, rales.. Heart: RRR without murmur, gallop, or rubs. No ectopy. ASSESSMENT/PLAN: 1. 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 Fatty liver - ICD9: 571.8, ICD10: K76.0 - COMPREHENSIVE METABOLIC PANEL - LIPID 4. Hypokalemia - ICD9: 276.8, ICD10: E87.6 - COMPREHENSIVE METABOLIC PANEL - POTASSIUM CHLORIDE ER 10 MEQ TABLET,EXTENDED RELEASE 5. Mixed hyperlipidemia - ICD9: 272.2, ICD10: E78.2 - Worsening control but stable - Counseled on healthy diet and regular exercise - LIPID PANEL, FASTING 6. IFG (impaired fasting glucose) - ICD9: 790.21, ICD10: R73.01 - METFORMIN ER 500 MG TABLET,EXTENDED RELEASE 24 HR Discussed treatment plan and patient voices understanding. Patient's questions answered appropriately. Medications and potential side effects were discussed and patient voices understanding. Return to the office as scheduled or as needed for worsening/no improvement. Jenifer Villa APRN.FLANGING ROLL OPERATOR Recording using AppUpper - ASO software for draft documentation of the visit was discussed with the patient/authorized arborist representative; all questions welcomed and answered. Patient/authorized arborist representative agreed to proceed [1] PAST MEDICAL HISTORY Diagnosis Date Diastasis of rectus abdominis 12/11/2015 Dysthymic disorder Depression (non-psychotic) Environmental allergies Spring worse. Gallstones Genital herpes, unspecified 01/09/2007 HSV (herpes simplex virus) anogenital infection 1990 Hypercholesteremia 05/2015 Leukocytoclastic vasculitis (HCC) 2012 dx by Aliyah Wallace Onychomycrey SHAINA (obs (more content not included)... [facility] 11-19-2024 History of Presen t illness Narrative This is a 53 year old female who presents today with: Ronnie Katz is a 53-year-old female with a history of depression and hypothyroidism, presenting for a routine follow-up and medication management. HISTORY OF PRESENT ILLNESS: Depression: - Managed with Effexor 75 mg and 150 mg. - Intermittent thoughts of self-harm. States chronic thoughts of having to continue on through life, but hasn't had attempts or have any plans. - Denies any specific triggers for these thoughts, random. Feels her medications control things well and doesn't desire a change. Hypothyroidism: - Managed with Synthroid 75 mcg daily. - Last thyroid labs were elevated. Weight Management: - Taking phentermine, but ran out 2-3 weeks ago. - Lost 12 lbs since April, with 4 lbs lost since July. - Denies heart palpitations or other side effects from phentermine. - Taking an additional weight loss medication ordered online, more natural. 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 Most Recent 11/21/21 - 11/19/24 09/19/23 13:55 01/05/24 13:56 03/01/24 14:33 04/19/24 10:46 07/09/24 19:05 07/18/24 13:41 11/19/24 13:01 Weight 234 lb 12.8 oz (106.5 kg) 11/19/24 13:01 255 lb (115.7 kg) 241 lb 10 oz (109.6 kg) 238 lb 12.1 oz (108.3 kg) 246 lb 9.6 oz (111.9 kg) 241 lb 10 oz (109.6 kg) 238 lb 3.2 oz (108 kg) 234 lb 12.8 oz (106.5 kg) PAST MEDICAL HISTORY: PAST MEDICAL HISTORY[1] PAST SURGICAL HISTORY Procedure Laterality Date APPENDECTOMY CARPAL TUNNEL 2017 CARPAL TUNNEL Right 2018 CHOLECYSTECTOMY HX 07/05/2023 LIVER BIOPSY 07/05/2023 NEUROPLASTY &/TRANSPOS MEDIAN NRV CARPAL TUNNE Right 09/13/2016 PAST SURGICAL HISTORY OF Right 02/2024 Knee clean up THYROID LEFT FINE NEEDLE ASPIRATION 08/02/2007 U/ S FNA left thyroid nodule TOTAL THYROID LOBECTOMY UNI W/WO ISTHMUSECTOMY 08/31/2007 LEFT VAGINAL HYSTERECTOMY UTERUS 250 GM/< 12/01/2009 TVH for fibroid, menorrhagia, adenomyosis ALLERGIES Prozac [Fluoxetine Hcl] MEDICATIONS CURRENT MEDICATIONS[2] FAMILY HISTORY[3] SOCIAL HISTORY[4] REVIEW OF SYSTEMS See HPI EXAM: BP 120/76 (BP Site: Left Arm, BP Position: Sitting, BP Cuff Size: Large Adult) Pulse 91 Temp 36.5 C (97.7 F) Resp 14 Ht 162.5 cm (5' 3.98) Wt 106.5 kg (234 lb 12.8 oz) LMP 11/16/2009 SpO2 97% BMI 40.33 kg/m PHYSICAL EXAM: General Appearance: Well appearing, alert, in no acute distress, well-hydrated, well nourished.. Lungs: Lungs clear to auscultation. No wheezing, rhonchi, rales.. Heart: RRR without murmur, gallop, or rubs. No ectopy. ASSESSMENT/PLAN: 1. 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 Fatty liver - ICD9: 571.8, ICD10: K76.0 - COMPREHENSIVE METABOLIC PANEL - LIPID 4. Hypokalemia - ICD9: 276.8, ICD10: E87.6 - COMPREHENSIVE METABOLIC PANEL - POTASSIUM CHLORIDE ER 10 MEQ TABLET,EXTENDED RELEASE 5. Mixed hyperlipidemia - ICD9: 272.2, ICD10: E78.2 - Worsening control but stable - Counseled on healthy diet and regular exercise - LIPID PANEL, FASTING 6. IFG (impaired fasting glucose) - ICD9: 790.21, ICD10: R73.01 - METFORMIN ER 500 MG TABLET,EXTENDED RELEASE 24 HR Discussed treatment plan and patient voices understanding. Patient's questions answered appropriately. Medications and potential side effects were discussed and patient voices understanding. Return to the office as scheduled or as needed for worsening/no improvement. Jenifer Villa APRN.FLANGING ROLL OPERATOR Recording using AppUpper - ASO software for draft documentation of the visit was discussed with the patient/authorized arborist representative; all questions welcomed and answered. Patient/authorized arborist representative agreed to proceed [1] PAST MEDICAL HISTORY Diagnosis Date Diastasis of rectus abdominis 12/11/2015 Dysthymic disorder Depression (non-psychotic) Environmental allergies spring. Gallstones Genital herpes, unspecified 01/09/2007 HSV (herpes simplex virus) anogenital infection 1990 Hypercholesteremia 05/2015 Leukocytoclastic vasculitis (HCC) 2012 dx by Aliyah Wallace Onychomycosis SHAINA (obstructive sleep apnea) 04/13/2017 Persistent asthma without complication (HCC) 06/12/2018 + JADA 06/2018, chronic cough, abnormal RAST. [2] Current Outpatient Medications Medication Sig levothyroxine (SYNTHROID) 88 mcg tablet Take 1 tablet by mouth once daily. pantoprazole DR (PROTONIX) 40 mg tablet Take 1 tablet by mouth once daily. loratadine (CLARITIN) 10 mg tablet Take 1 tablet by mouth once daily. Calcium-Cholecalciferol, D3, 600 mg-10 mcg (400 unit) cap Take 1 capsule by mouth once daily. venlafaxine ER (EFFEXOR XR) 150 mg 24 hr capsule Take 1 capsule by mouth once daily. venlafaxine ER (EFFEXOR XR) 75 mg 24 hr capsule Take 1 capsule by mouth once daily. dexAMETHasone 0.1 % ophthalmic solution Instill 1 drop into affected ear canal once daily as needed traZODone (DESYREL) 50 mg tablet Take 1 tablet by mouth daily at bedtime. furosemide (LASIX) 40 mg tablet Take 1 tablet by mouth two times a day. budesonide-formoterol (SYMBICORT) 80-4.5 mcg/actuation inhaler Inhale 2 Puffs as instructed twice daily. albuterol HFA (PROVENTIL HFA, VENTOLIN HFA) 90 mcg/actuation inhaler Inhale 2 Puffs as instructed every 4 hours as needed. cholecalciferol (VITAMIN D3) 50 mcg (2,000 unit) tablet Take 1 tablet by mouth once daily. CPAP Initiate CPAP @ 10 cm of water with humidification. Mask (per patient preference) optional chin strap (if indicated) , filters, tubing, humidifier and lifetime supplies. COMPOUNDED PRESCRIPTION CPAP Supplies; hose; mask DX: SHAINA multivitamins(DAILY VITAMIN TAB) Take one(1) tablet daily. Phentermine HCl 37.5 mg tablet Take 1 tablet by mouth once daily for 90 days. BMI 40.33 potassium chloride (K-TAB) 10 mEq tablet Take 1 tablet by mouth daily with breakfast. metFORMIN ER (GLUCOPHAGE XR) 500 mg 24 hr tablet Take 2 tablets by mouth once daily. With dinner. No current facility-administered medications for this visit. [3] FAMILY HISTORY Problem Relation Age of Onset other (FIBROMYALGIA) Mother Lipids Father Ischemic Heart Disease Father Heart Father GA has hole in heart Stroke Father Diabetes Father Stroke Maternal Grandmother Alzheimer's Disease Maternal Grandmother Psychiatry Maternal Grandmother DEMENTIA Breast Cancer Maternal Grandmother Diabetes Other pcousin Heart Sister Hole in heart Thyroid Sister Allergies No Family History Asthma No Family History [4] Social History Tobacco Use Smoking status: Never Smokeless tobacco: Never Tobacco comments: No ETS in childhood or current home. Vaping Use Vaping status: Never Used Substance Use Topics Alcohol use: No Drug use: No documented in this encounter [facility] 08-06-2024 Note HNO ID: [id number] Author: EREN CALDERON, ? Service: ? Author Type: Physician Type: Progress Notes Filed: 08/06/2024 15:13 Note Text: Consultation requested by Dr. Robles for an opinion regarding foot pain. My final recommendations will be communicated back to the requesting physician by way of shared Medical record or letter to requesting physician via US mail. Mikael Tiwari is a 53-year-old female presenting for bilateral foot pain. Bilateral Foot Pain: - Onset: 3 months ago. - Location: Left foot pain primarily on the plantar aspect; right foot pain primarily on the heel. - Timing: Pain is most pronounced after work. 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 - Aggravating Factors: Prolonged standing and walking. - Alleviating Factors: Icing, massage, and rest provide intermittent relief. - Additional Symptoms: Occasional cramping in the right foot. - Recent Trauma: Dropped an object on the right foot last week, resulting in bruising; denies associated pain. Musculoskeletal: (+) left foot pain, (+) right foot pain, (+) right foot cramping Neurological: (-) numbness, tingling, burning PAST MEDICAL HISTORY Diagnosis Date Diastasis of rectus abdominis 12/11/2015 Dysthymic disorder Depression (non-psychotic) Environmental allergies spring. Gallstones Genital herpes, unspecified 01/09/2007 HSV (herpes simplex virus) anogenital infection 1990 Hypercholesteremia 05/2015 Leukocytoclastic vasculitis (HCC) 2012 dx by Aliyah Wallace Onychomycosis SHAINA (obstructive sleep apnea) 04/13/2017 Persistent asthma without complication (HCC) 06/12/2018 + JADA 06/2018, chronic cough, abnormal RAST. Current Outpatient Medications Medication Sig Dispense Refill levothyroxine (SYNTHROID) 88 mcg tablet Take 1 tablet by mouth once daily. [address] (PROTONIX) 40 mg tablet Take 1 tablet by mouth once daily. 30 tablet 5 Phentermine HCl 37.5 mg tablet Take 1 tablet by mouth once daily for 90 days. BMI 42.62 30 tablet 2 loratadine (CLARITIN) 10 mg tablet Take 1 tablet by mouth once daily. 30 tablet 11 ondansetron (ZOFRAN) 4 mg tablet Take 1 tablet by mouth every 8 hours as needed for nausea/vomiting. 4 tablet 0 diphenoxylate-atropine (LOMOTIL) 2.5-0.025 mg per tablet Take 1 tablet by mouth four times a day as needed for up to 2 days. 4 tablet 1 Calcium-Cholecalciferol, D3, 600 mg-10 mcg (400 unit) cap Take 1 capsule by mouth once daily. 90 capsule 3 venlafaxine ER (EFFEXOR XR) 150 mg 24 hr capsule Take 1 capsule by mouth once daily. 90 capsule 1 venlafaxine ER (EFFEXOR XR) 75 mg 24 hr capsule Take 1 capsule by mouth once daily. 90 capsule 1 metFORMIN ER (GLUCOPHAGE XR) 500 mg 24 hr tablet Take 2 tablets by mouth once daily. With dinner. 180 tablet 2 dexAMETHasone 0.1 % ophthalmic solution Instill 1 drop into affected ear canal once daily as needed 5 mL 1 potassium chloride (K-TAB) 10 mEq tablet Take 1 tablet by mouth daily with breakfast. 90 tablet 1 traZODone (DESYREL) 50 mg tablet Take 1 tablet by mouth daily at bedtime. 90 tablet 3 furosemide (LASIX) 40 mg tablet Take 1 tablet by mouth two times a day. 60 tablet 11 metFORMIN ER (FORTAMET) 500 mg 24 hr tablet Take 1 tablet by mouth daily with dinner. Take two tablets by mouth daily with dinner. 180 tablet 1 budesonide-formoterol (SYMBICORT) 80-4.5 mcg/actuation inhaler Inhale 2 Puffs as instructed twice daily. 14 g 2 albuterol HFA (PROVENTIL HFA, VENTOLIN HFA) 90 mcg/actuation inhaler Inhale 2 Puffs as instructed every 4 hours as needed. 18 g 1 cholecalciferol (VITAMIN D3) 50 mcg (2,000 unit) tablet Take 1 tablet by mouth once daily. 90 tablet 3 CPAP Initiate CPAP @ 10 cm of water with humidification. Mask (per patient preference) optional chin strap (if indicated) , filters, tubing, humidifier and lifetime supplies. 1 Device 0 COMPOUNDED PRESCRIPTION CPAP Supplies; hose; mask DX: SHAINA 1 Each 0 multivitamins(DAILY VITAMIN TAB) Take one(1) tablet daily. 0 No current facility-administered medications for this visit. ALLERGIES Allergen Reactions Prozac [Fluoxetine * Mental Status Change Aggressive behavior, emotional Objective Last menstrual period 11/16/2009. - Cardiovascular: Dorsalis pedis and posterior tibial pulses faintly palpable bilaterally; capillary refill <5 seconds; skin temperature warm to cool; proximal and distal hair growth present bilaterally. - Skin: No open sores noted bilaterally; skin well-hydrated; toenails 1-5 normal in length and thickness bilaterally. - Neurological: Protective sensation intact bilaterally; questionable positive Tinel's sign on the right foot. - Musculoskeletal: - Right Foot: - Arch collapse and toe curling observed. - Pain to palpation on the medial heel; positive Walters's click on the third interspace. - Bruising noted on the second metatarsal with minimal pain. - Stren (more content not included)... [facility] 08-06-2024 History of Presen t illness Narrative Consultation requested by Dr. Robles for an opinion regarding foot pain. My final recommendations will be communicated back to the requesting physician by way of shared Medical record or letter to requesting physician via US mail. Mikael Tiwari is a 53-year-old female presenting for bilateral foot pain. Bilateral Foot Pain: - Onset: 3 months ago. - Location: Left foot pain primarily on the plantar aspect; right foot pain primarily on the heel. - Timing: Pain is most pronounced after work. 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 - Aggravating Factors: Prolonged standing and walking. - Alleviating Factors: Icing, massage, and rest provide intermittent relief. - Additional Symptoms: Occasional cramping in the right foot. - Recent Trauma: Dropped an object on the right foot last week, resulting in bruising; denies associated pain. Musculoskeletal: (+) left foot pain, (+) right foot pain, (+) right foot cramping Neurological: (-) numbness, tingling, burning PAST MEDICAL HISTORY Diagnosis Date Diastasis of rectus abdominis 12/11/2015 Dysthymic disorder Depression (non-psychotic) Environmental allergies Spring worse. Gallstones Genital herpes, unspecified 01/09/2007 HSV (herpes simplex virus) anogenital infection 1990 Hypercholesteremia 05/2015 Leukocytoclastic vasculitis (HCC) 2012 dx by Aliyah Wallace Onychomycosis SHAINA (obstructive sleep apnea) 04/13/2017 Persistent asthma without complication (HCC) 06/12/2018 + JADA 06/2018, chronic cough, abnormal RAST. Current Outpatient Medications Medication Sig Dispense Refill levothyroxine (SYNTHROID) 88 mcg tablet Take 1 tablet by mouth once daily. [address] (PROTONIX) 40 mg tablet Take 1 tablet by mouth once daily. 30 tablet 5 Phentermine HCl 37.5 mg tablet Take 1 tablet by mouth once daily for 90 days. BMI 42.62 30 tablet 2 loratadine (CLARITIN) 10 mg tablet Take 1 tablet by mouth once daily. 30 tablet 11 ondansetron (ZOFRAN) 4 mg tablet Take 1 tablet by mouth every 8 hours as needed for nausea/vomiting. 4 tablet 0 diphenoxylate-atropine (LOMOTIL) 2.5-0.025 mg per tablet Take 1 tablet by mouth four times a day as needed for up to 2 days. 4 tablet 1 Calcium-Cholecalciferol, D3, 600 mg-10 mcg (400 unit) cap Take 1 capsule by mouth once daily. 90 capsule 3 venlafaxine ER (EFFEXOR XR) 150 mg 24 hr capsule Take 1 capsule by mouth once daily. 90 capsule 1 venlafaxine ER (EFFEXOR XR) 75 mg 24 hr capsule Take 1 capsule by mouth once daily. 90 capsule 1 metFORMIN ER (GLUCOPHAGE XR) 500 mg 24 hr tablet Take 2 tablets by mouth once daily. With dinner. 180 tablet 2 dexAMETHasone 0.1 % ophthalmic solution Instill 1 drop into affected ear canal once daily as needed 5 mL 1 potassium chloride (K-TAB) 10 mEq tablet Take 1 tablet by mouth daily with breakfast. 90 tablet 1 traZODone (DESYREL) 50 mg tablet Take 1 tablet by mouth daily at bedtime. 90 tablet 3 furosemide (LASIX) 40 mg tablet Take 1 tablet by mouth two times a day. 60 tablet 11 metFORMIN ER (FORTAMET) 500 mg 24 hr tablet Take 1 tablet by mouth daily with dinner. Take two tablets by mouth daily with dinner. 180 tablet 1 budesonide-formoterol (SYMBICORT) 80-4.5 mcg/actuation inhaler Inhale 2 Puffs as instructed twice daily. 14 g 2 albuterol HFA (PROVENTIL HFA, VENTOLIN HFA) 90 mcg/actuation inhaler Inhale 2 Puffs as instructed every 4 hours as needed. 18 g 1 cholecalciferol (VITAMIN D3) 50 mcg (2,000 unit) tablet Take 1 tablet by mouth once daily. 90 tablet 3 CPAP Initiate CPAP @ 10 cm of water with humidification. Mask (per patient preference) optional chin strap (if indicated) , filters, tubing, humidifier and lifetime supplies. 1 Device 0 COMPOUNDED PRESCRIPTION CPAP Supplies; hose; mask DX: SHAINA 1 Each 0 multivitamins(DAILY VITAMIN TAB) Take one(1) tablet daily. 0 No current facility-administered medications for this visit. ALLERGIES Allergen Reactions Prozac [Fluoxetine * Mental Status Change Aggressive behavior, emotional Objective Last menstrual period 11/16/2009. - Cardiovascular: Dorsalis pedis and posterior tibial pulses faintly palpable bilaterally; capillary refill <5 seconds; skin temperature warm to cool; proximal and distal hair growth present bilaterally. - Skin: No open sores noted bilaterally; skin well-hydrated; toenails 1-5 normal in length and thickness bilaterally. - Neurological: Protective sensation intact bilaterally; questionable positive Tinel's sign on the right foot. - Musculoskeletal: - Right Foot: - Arch collapse and toe curling observed. - Pain to palpation on the medial heel; positive Walters's click on the third interspace. - Bruising noted on the second metatarsal with minimal pain. - Strength: Plantar flexion, dorsiflexion, inversion, and eversion 5/5. - Left Foot: - Arch collapse and toe curling observed. - No pain on the medial heel; negative Walters's click. - Strength: Plantar flexion, dorsiflexion, inversion, and eversion 5/5. 1. Foot pain, bilateral (M79.671) 2. Plantar fasciitis (M72.2) 3. Neuroma (D36.10) - Bilateral foot pain for 3 months, worse after work; left foot pain localized to the ball of the foot, right foot pain towards the heel. - Examination reveals collapse of the arch, curling of toes, and a positive Walters's neuroma click on the right third interspace. - Suspected Walters's neuroma on the left foot; provided arch support inserts. - Recommended wearing supportive lace-up tennis shoes such as Hoka, Petersen, or Asics. - Advised daily stretching exercises: stand arm's length from a wall, feet slightly inward, push against the wall, hold for 40-45 seconds, repeat 2-3 times, morning, afternoon, and evening. - Discussed potential for steroid injection if pain persists. - Consider ultrasound if pain is constant to confirm neuroma. - Provided patient with information on plantar fasciitis. - discussed plantar fasciitis on right foot. recommend stretching, icing, use of inserts. if pain fails to improve, could consider injection. - if pain fails to improve, patient to make follow-up Attestation Recording using AppUpper - ASO software for draft documentation of the visit was discussed with the patient/authorized arborist representative; all questions welcomed and answered. Patient/authorized arborist representative agreed to proceed AMB ROOMING INTAKE FLOWSHEET DATA Pain Pain Level: 4 Pain Location: Other: See Comment (bilateral feet) Description: Dull Duration Amount of Time: 4 Duration Units: Months Frequency: Intermittent Intervention/Comfort measure: Reposition, Relaxation Patient presents with: Left Foot - Pain, Established Patient Right Foot - Pain, Established Patient Trini Barr LPN documented in this encounter [facility] 08-06-2024 Instructions Eren Calderon - 08/06/2024 3:01 PM EDT Images from the original note were not included. Powerstep Original Full length. Can purchase at [facility] [employer] and boots,shoes and more here in [place], [employer] in [place] or [place]. Also can find in [place] in [facility]. Powersteps can also be purchased online, starting around $45.00 If you have a metatarsal or dancer pad for your feet apply the pad directly to the insole so you can interchange between your shoes. Find a shoe with a removable insole and take this out and replace with your powerstep insole. Always bring powersteps with you when shopping for shoes so that you can make sure that everything fits well together What is Plantar Fasciitis? Plantar fasciitis is the most common cause of heel pain. The pain is caused by inflammation of the plantar fascia. If you strain your plantar fascia, it becomes weak, swollen and irritated (inflamed). The resulting pain may be isolated in the heel or may appear at different points on the bottom of the foot, from time to time; it may occur in one foot or both. Some think that plantar fasciitis pain is caused by irritation of nerves from tissue swelling or inflammation, but it is debatable. Plantar fasciitis is common in middle-aged people; it also occurs in younger people who are on their feet a lot, such as athletes or soldiers. The plantar fascia is a strong band of connective tissue that extends from the base of the toes, along the bottom of the foot, to the bottom of the heel (calcaneous bone); it acts like a bowstring to maintain the arch of the foot. What are heel spurs? The inflammatory reaction of the heel bone may produce spike-like projections of new bone, called heel spurs. The spurs sometimes show on X-rays. They neither cause the initial pain nor do they cause the initial problem. However, later, having to walk on spurs may cause sharp pain. What causes plantar fasciitis? Plantar fasciitis is caused by straining the ligament that supports your arch. Repeated strain can cause tiny tears in the ligament. These lead to pain and swelling. During walking, the plantar fascia experiences tension up to twice the body weight with each step. While this is normal, those who spend much time on their feet, such as nurses, head waitress/waiters, and mail carriers, often experience plantar fasciitis. Athletes involved in tennis or other racquet sports, race walking, jogging or running also show a higher incidence of plantar fasciitis than do those participating in other activities. Thus, it's clear that plantar fasciitis is predominantly an overuse injury. In fact, any activity that results in prolonged tension and stress on the plantar fascia may cause plantar fasciitis. It is possible that changes in footwear may play a role in causing plantar fasciitis, no matter what activity is occurring. Those who are overweight are prone to plantar fasciitis. This is true even for sedentary people who get little physical activity. Abnormalities of the foot and ankle joints may predispose some individuals to development of plantar fasciitis (specifically, over pronation of the subtalar joint). Contributing Factors * Flat feet * Toe running, hill running * Sudden weight increase * High-arched, rigid feet * Soft terrain, e.g. running on sand * Obesity * Pronated feet (rolled inward) * Sudden increase in activity * Family tendency * Poor shoe support * Worn out or poorly fitted shoes * Increasing age * Walking, standing or running for long periods of time, especially on hard surfaces. How is the Injury Treated? Rest Your Feet: Limit, or if possible, stop activities that are causing your heel pain. Try to avoid running or walking on hard surfaces, such as concrete. Use pain as your guide. If your foot is too painful, rest it. Ice: Ice the sore area for 30 to 60 minutes, several times a day, to reduce inflammation and relieve pain. Apply a plastic bag of crushed ice (or a bag of frozen peas) over a towel. Ice the sore area for 15 minutes after activity/exercise. Application of heat is not generally recommended, as heat expands the bone and connective tissue, perhaps exerting greater pressure on nerves and thereby increasing pain. If heat is used, follow it with ice. Medication: If your condition developed recently, anti-inflammatory/analgesic medication, combined with heel pads (see below) may be all that is necessary to relieve pain and to reduce inflammation. If no pain relief has occurred after 2-3 weeks, however, your doctor may inject either cortisone or local anesthetic directly into the tender area. Exercises: Do simple exercises, such as calf stretches and towel stretches (see below) several times a day, especially when you first get up in the morning. These can help your ligament become more flexible and strengthen the muscles that support your arch. Shoes: Poorly fitting shoes can cause plantar fasciitis. The best type of shoe to wear is a good walking or running shoe with good shock absorption and excellent arch support. You should choose the one that fits the best. [place] with your athletic shoes to find a pair that is comfortable and causes fewer symptoms. Put your shoes on as soon as you get out of bed; going barefoot or wearing slippers may make your pain worse. Good brands include (but are not limited to): New Balance, Asics, Saucony, SAS and Merrel s. Taping: Your doctor may tape your foot to maintain the arch. This takes some of the tension off the plantar fascia. Weight Loss: If your weight is putting extra stress on your feet, your doctor may encourage you to try a weight-loss program. Orthotics: An orthotic insole is a molded piece of rubber, plastic, or other material that you insert into your shoe. It corrects the alignment of your foot and cushions your foot from excessive pounding. These may be prescription or non-prescription. Prescription orthotics are custom-fitted and may fit better and control pain better, but are very expensive. Night Splints: A night splint holds the foot with the toes pointed up and the ankle at a 90-degree angle. This position applies a constant, gentle stretch to the plantar fascia. Corticosteroid Shots: Steroids may be injected into the tender area to reduce inflammation. REHAB Exercises to stretch the plantar fascia, the calf muscles, and the Achilles tendon. Tightness of the muscles of the calves may contribute to plantar fasciitis, so stretching the calf muscles is important to rehabilitation, as is stretching of the plantar fascia itself. Plantar fascial stretches Assisted Dorsiflexion/Plantar Fascia Stretch: Sit on the floor or ground, barefoot, with both legs outstretched. Use a towel or elastic band and wrap it around the ball (and not the toes) of the affected foot. Use the towel or elastic band to provide resistance to upward movement of the forefoot. Pull foot upward (toward your body) with the help of the elastic band or towel, and then return to the starting position. Ten repetitions are recommended. Perform the sequence at least three times a day. Alternate Plantar Fascia Stretch: Sit upright in a chair, barefoot. Place the ankle of the affected foot on your opposite knee. Using the same hand as the affected foot, reach across and grab the toes. Flex the ankle toward and pull the toes toward the chu. To test the stretch, place the thumb of your hand on the bottom of the foot. You should be able to feel the cord-like plantar fascia, running the length of the foot. Hold the stretch for a count of 10, then relax. Repeat 10 times. Do the sequence at least three times a day. Achilles/Calf Stretches Strengthening the muscles of the calves may contribute to successful rehabilitation of plantar fasciitis, as well as prevent reoccurrence. The exercises below will help strengthen the calf muscles. Calf and Achilles Tendon Stretch (Gastrocnemius Stretch): Face a wall, standing an arm's length away. Place one foot back. Place both hands on the wall. Bend the elbows and knee of your forward leg, keeping the heel of the backward foot on the floor and keeping your body straight (aligned), until your forehead nearly touches the wall, or until significant stretch is felt in the muscles of the calf of the backward leg. Hold this position for 10 to 15 seconds. Extend elbows (straighten your arms and stand upright again) and maintain this position for 10 seconds. Repeat this cycle 15 to 20 times. Switch legs and repeat the exercise. documented in this encounter [facility] 08-06-2024 Note HNO ID: [id number] Author: TRINI BARR LPN Service: ? Author Type: LICENSED NURSE Type: Progress Notes Filed: 08/06/2024 15:13 Note Text: AMB ROOMING INTAKE FLOWSHEET DATA Pain Pain Level: 4 Pain Location: Other: See Comment (bilateral feet) Description: Dull Duration Amount of Time: 4 Duration Units: Months Frequency: Intermittent Intervention/Comfort measure: Reposition, Relaxation Patient presents with: Left Foot - Pain, Established Patient Right Foot - Pain, Established Patient Trini Barr LPN [facility] 07-20-2024 Telephone encounter Note Pt returned call and given provider's message below with verbalized understanding. Pt agreeable. [facility] 07-20-2024 Miscellaneous Notes Pt returned call and given provider's message below with verbalized understanding. Pt agreeable. Left message to return call Sandra Aguiar MA ----- Message from Adia Robles APRN.FLANGING ROLL OPERATOR sent at 07/20/2024 8:52 AM EDT ----- Routing information can be restored upon returning to the encounter Please let her know that I received her lab results. She had a few different things that were slightly out of target range, but nothing acutely concerning. I would like to repeat these in a month. I've placed the orders and she can schedule or come in to have these done. Her thyroid labs look good. I'm going to keep the same amount of levothyroxine, but I'm changing the dose so she is not having to take 1/2 pills some days. She'll take 88mcg every day and will just be 1 pill. The following approved medication requests have been transmitted electronically. Requested Prescriptions Signed Prescriptions Disp Refills levothyroxine (SYNTHROID) 88 mcg tablet 90 tablet 1 Sig: Take 1 tablet by mouth once daily. Adia Robles APRN.CNP documented in this encounter [facility] 07-20-2024 Telephone encounter Note Left message to return call Sandra Aguiar MA [facility] 07-20-2024 Telephone encounter Note ----- Message from Adia Robles APRN.CNP sent at 07/20/2024 8:52 AM EDT ----- Routing information can be restored upon returning to the encounter [facility] 07-20-2024 Telephone encounter Note Please let her know that I received her lab results. She had a few different things that were slightly out of target range, but nothing acutely concerning. I would like to repeat these in a month. I've placed the orders and she can schedule or come in to have these done. Her thyroid labs look good. I'm going to keep the same amount of levothyroxine, but I'm changing the dose so she is not having to take 1/2 pills some days. She'll take 88mcg every day and will just be 1 pill. The following approved medication requests have been transmitted electronically. Requested Prescriptions Signed Prescriptions Disp Refills levothyroxine (SYNTHROID) 88 mcg tablet 90 tablet 1 Sig: Take 1 tablet by mouth once daily. Adia Robles APRN.CNP [facility] 07-18-2024 History of Presen t illness Narrative Radiology Service Progress Note PATIENT NAME: Ronnie Katz DATE OF SERVICE: July 18, 2024 TIME: 2:48 PM PATIENT IDENTITY VERIFICATION COMPLETED USING TWO (2) IDENTIFIERS: Name and Date of confirmed by patient verbally. FALL SCREENING: Has the patient had 2 falls in the last year or 1 fall with injury or currently using an Ambulatory Assistive Device (Walker, Cane, Wheelchair, Crutches, etc.)? No PATIENT GENDER DATA: Assigned female at . status: : No status: NO. PATIENT RELEVANT IMPLANT DATA REVIEWED: Not Applicable PATIENT PRESENTS WITH AN IMPLANTABLE OR ATTACHED CO TEACHER: No RADIOLOGY DEPARTMENT: General X-ray: Exam(s) Completed: Lower Extremity X-Ray(s): Foot, Bilateral and Wt. Bearing PERIPHERAL IV DATA: Not applicable SIGNED BY: DEVIN Jara) July 18, 2024 2:48 PM documented in this encounter [facility] 07-18-2024 Note HNO ID: [id number] Author: SRINI MEEK RT(R) Service: Radiology Author Type: Technologist Type: Progress Notes Filed: 07/18/2024 14:58 Note Text: Radiology Service Progress Note PATIENT NAME: Ronnie Katz DATE OF SERVICE: July 18, 2024 TIME: 2:48 PM PATIENT IDENTITY VERIFICATION COMPLETED USING TWO (2) IDENTIFIERS: Name and Date of confirmed by patient verbally. FALL SCREENING: Has the patient had 2 falls in the last year or 1 fall with injury or currently using an Ambulatory Assistive Device (Walker, Cane, Wheelchair, Crutches, etc.)? No PATIENT GENDER DATA: Assigned female at . status: : No status: NO. PATIENT RELEVANT IMPLANT DATA REVIEWED: Not Applicable PATIENT PRESENTS WITH AN IMPLANTABLE OR ATTACHED CO TEACHER: No RADIOLOGY DEPARTMENT: General X-ray: Exam(s) Completed: Lower Extremity X-Ray(s): Foot, Bilateral and Wt. Bearing PERIPHERAL IV DATA: Not applicable SIGNED BY: Srini Meek, RT(R) July 18, 2024 2:48 PM [facility] 07-18-2024 Note HNO ID: [id number] Author: ADIA ROBLES APRN.FLANGING ROLL OPERATOR Service: ? Author Type: Nurse Practitioner Type: Progress Notes Filed: 07/18/2024 18:32 Note Text: Chief Complaint Patient presents with: F/U 3 Month: Adipex HPI Ronnie Katz is a 53 year old female who presents here today for Above Complaints.. Adipex 3.7mg daily- Metformin XR 500mg twice daily Tolerating both well, would like to be losing more weight. Wants to try taking probiotics to see if this helps. Would like to continue both medications Most Recent 07/20/21 - 07/18/24 08/16/23 12:47 09/19/23 13:55 01/05/24 13:56 03/01/24 14:33 04/19/24 10:46 07/09/24 19:05 07/18/24 13:41 Weight 238 lb 3.2 oz (108 kg) 07/18/24 13:41 259 lb (117.5 kg) 255 lb (115.7 kg) 241 lb 10 oz (109.6 kg) 238 lb 12.1 oz (108.3 kg) 246 lb 9.6 oz (111.9 kg) 241 lb 10 oz (109.6 kg) 238 lb 3.2 oz (108 kg) Left ball off foot-feels numb after work. Isn't necessarily painful. Past medical history, appointments, medications, allergies reviewed. Previous Medical History PAST MEDICAL HISTORY Diagnosis Date Diastasis of rectus abdominis 12/11/2015 Dysthymic disorder Depression (non-psychotic) Environmental allergies Spring worse. 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 Previous Surgical History PAST SURGICAL HISTORY Procedure Laterality Date APPENDECTOMY CARPAL TUNNEL 2017 CARPAL TUNNEL Right 2018 CHOLECYSTECTOMY HX 07/05/2023 LIVER BIOPSY 07/05/2023 NEUROPLASTY AND/TRANSPOS MEDIAN NRV CARPAL TUNNE Right 09/13/2016 PAST SURGICAL HISTORY OF Right 02/2024 Knee clean up THYROID LEFT FINE NEEDLE ASPIRATION 08/02/2007 U/ S FNA left thyroid nodule TOTAL THYROID LOBECTOMY UNI W/WO ISTHMUSECTOMY 08/31/2007 LEFT VAGINAL HYSTERECTOMY UTERUS 250 GM/< 12/01/2009 TVH for fibroid, menorrhagia, adenomyosis Family History FAMILY HISTORY Problem Relation Age of Onset other (FIBROMYALGIA) Mother Lipids Father Ischemic Heart Disease Father Heart Father [place] has hole in heart Stroke Father Diabetes Father Stroke Maternal Grandmother Alzheimer's Disease Maternal Grandmother Psychiatry Maternal Grandmother DEMENTIA Breast Cancer Maternal Grandmother Diabetes Other pcousin Heart Sister Hole in heart Thyroid Sister Allergies No Family History Asthma No Family History Patient Allergies ALLERGIES Allergen Reactions Prozac [Fluoxetine * Mental Status Change Aggressive behavior, emotional Current Medications Current Outpatient Medications on File Prior to Visit Medication Sig ondansetron (ZOFRAN) 4 mg tablet Take 1 tablet by mouth every 8 hours as needed for nausea/vomiting. Calcium-Cholecalciferol, D3, 600 mg-10 mcg (400 unit) cap Take 1 capsule by mouth once daily. venlafaxine ER (EFFEXOR XR) 150 mg 24 hr capsule Take 1 capsule by mouth once daily. venlafaxine ER (EFFEXOR XR) 75 mg 24 hr capsule Take 1 capsule by mouth once daily. metFORMIN ER (GLUCOPHAGE XR) 500 mg 24 hr tablet Take 2 tablets by mouth once daily. With dinner. Phentermine HCl 37.5 mg tablet Take 1 tablet by mouth once daily for 90 days. BMI 42.62 dexAMETHasone 0.1 % ophthalmic solution Instill 1 drop into affected ear canal once daily as needed potassium chloride (K-TAB) 10 mEq tablet Take 1 tablet by mouth daily with breakfast. traZODone (DESYREL) 50 mg tablet Take 1 tablet by mouth daily at bedtime. levothyroxine (SYNTHROID) 75 mcg tablet Take 1 tablet by mouth daily 5 days per week. Take 1.5 tablets by mouth daily 2 days per week. Take in the morning on an empty stomach. pantoprazole DR (PROTONIX) 40 mg tablet Take 1 tablet by mouth once daily. furosemide (LASIX) 40 mg tablet Take 1 tablet by mouth two times a day. metFORMIN ER (FORTAMET) 500 mg 24 hr tablet Take 1 tablet by mouth daily with dinner. Take two tablets by mouth daily with dinner. loratadine (CLARITIN) 10 mg tablet Take 1 tablet by mouth once daily. albuterol HFA (PROVENTIL HFA, VENTOLIN HFA) 90 mcg/actuation inhaler Inhale 2 Puffs as instructed every 4 hours as needed. cholecalciferol (VITAMIN D3) 50 mcg (2,000 unit) tablet Take 1 tablet by mouth once daily. CPAP Initiate CPAP @ 10 cm of water with humidification. Mask (per patient preference) optional chin strap (if indicated) , filters, tubing, humidifier and lifetime supplies. COMPOUNDED PRESCRIPTION CPAP Supplies; hose; mask DX: SHAINA multivitamins(DAILY VITAMIN TAB) Take one(1) tablet daily. diphenoxylate-atropine (LOMOTIL) 2.5-0.025 mg per tablet Take 1 tablet by mouth four times a day as needed for up to 2 days. metFORMIN ER (FORTAMET) 1,000 mg 24 hr tablet Take 1 tablet by mouth daily (more content not included)... [facility] 07-18-2024 History of Presen t illness Narrative Chief Complaint Patient presents with: F/U 3 Month: Adipex HPI Ronnie Katz is a 53 year old female who presents here today for Above Complaints.. Adipex 3.7mg daily- Metformin XR 500mg twice daily Tolerating both well, would like to be losing more weight. Wants to try taking probiotics to see if this helps. Would like to continue both medications Most Recent 07/20/21 - 07/18/24 08/16/23 12:47 09/19/23 13:55 01/05/24 13:56 03/01/24 14:33 04/19/24 10:46 07/09/24 19:05 07/18/24 13:41 Weight 238 lb 3.2 oz (108 kg) 07/18/24 13:41 259 lb (117.5 kg) 255 lb (115.7 kg) 241 lb 10 oz (109.6 kg) 238 lb 12.1 oz (108.3 kg) 246 lb 9.6 oz (111.9 kg) 241 lb 10 oz (109.6 kg) 238 lb 3.2 oz (108 kg) Left ball off foot-feels numb after work. Isn't necessarily painful. Past medical history, appointments, medications, allergies reviewed. Previous Medical History PAST MEDICAL HISTORY Diagnosis Date Diastasis of rectus abdominis 12/11/2015 Dysthymic disorder Depression (non-psychotic) Environmental allergies Spring worse. Gallstones Genital herpes, unspecified 01/09/2007 HSV (herpes simplex virus) anogenital infection 1990 Hypercholesteremia 05/2015 Leukocytoclastic vasculitis (HCC) 2012 dx by Aliyah Wallace Onychomycosis SHAINA (obstructive sleep apnea) 04/13/2017 Persistent asthma without complication 06/12/2018 + JADA 06/2018, chronic cough, abnormal RAST. Previous Surgical History PAST SURGICAL HISTORY Procedure Laterality Date APPENDECTOMY CARPAL TUNNEL 2017 CARPAL TUNNEL Right 2018 CHOLECYSTECTOMY HX 07/05/2023 LIVER BIOPSY 07/05/2023 NEUROPLASTY &/TRANSPOS MEDIAN NRV CARPAL TUNNE Right 09/13/2016 PAST SURGICAL HISTORY OF Right 02/2024 Knee clean up THYROID LEFT FINE NEEDLE ASPIRATION 08/02/2007 U/ S FNA left thyroid nodule TOTAL THYROID LOBECTOMY UNI W/WO ISTHMUSECTOMY 08/31/2007 LEFT VAGINAL HYSTERECTOMY UTERUS 250 GM/< 12/01/2009 TVH for fibroid, menorrhagia, adenomyosis Family History FAMILY HISTORY Problem Relation Age of Onset other (FIBROMYALGIA) Mother Lipids Father Ischemic Heart Disease Father Heart Father [place] has hole in heart Stroke Father Diabetes Father Stroke Maternal Grandmother Alzheimer's Disease Maternal Grandmother Psychiatry Maternal Grandmother DEMENTIA Breast Cancer Maternal Grandmother Diabetes Other pcousin Heart Sister Hole in heart Thyroid Sister Allergies No Family History Asthma No Family History Patient Allergies ALLERGIES Allergen Reactions Prozac [Fluoxetine * Mental Status Change Aggressive behavior, emotional Current Medications Current Outpatient Medications on File Prior to Visit Medication Sig ondansetron (ZOFRAN) 4 mg tablet Take 1 tablet by mouth every 8 hours as needed for nausea/vomiting. Calcium-Cholecalciferol, D3, 600 mg-10 mcg (400 unit) cap Take 1 capsule by mouth once daily. venlafaxine ER (EFFEXOR XR) 150 mg 24 hr capsule Take 1 capsule by mouth once daily. venlafaxine ER (EFFEXOR XR) 75 mg 24 hr capsule Take 1 capsule by mouth once daily. metFORMIN ER (GLUCOPHAGE XR) 500 mg 24 hr tablet Take 2 tablets by mouth once daily. With dinner. Phentermine HCl 37.5 mg tablet Take 1 tablet by mouth once daily for 90 days. BMI 42.62 dexAMETHasone 0.1 % ophthalmic solution Instill 1 drop into affected ear canal once daily as needed potassium chloride (K-TAB) 10 mEq tablet Take 1 tablet by mouth daily with breakfast. traZODone (DESYREL) 50 mg tablet Take 1 tablet by mouth daily at bedtime. levothyroxine (SYNTHROID) 75 mcg tablet Take 1 tablet by mouth daily 5 days per week. Take 1.5 tablets by mouth daily 2 days per week. Take in the morning on an empty stomach. pantoprazole DR (PROTONIX) 40 mg tablet Take 1 tablet by mouth once daily. furosemide (LASIX) 40 mg tablet Take 1 tablet by mouth two times a day. metFORMIN ER (FORTAMET) 500 mg 24 hr tablet Take 1 tablet by mouth daily with dinner. Take two tablets by mouth daily with dinner. loratadine (CLARITIN) 10 mg tablet Take 1 tablet by mouth once daily. albuterol HFA (PROVENTIL HFA, VENTOLIN HFA) 90 mcg/actuation inhaler Inhale 2 Puffs as instructed every 4 hours as needed. cholecalciferol (VITAMIN D3) 50 mcg (2,000 unit) tablet Take 1 tablet by mouth once daily. CPAP Initiate CPAP @ 10 cm of water with humidification. Mask (per patient preference) optional chin strap (if indicated) , filters, tubing, humidifier and lifetime supplies. COMPOUNDED PRESCRIPTION CPAP Supplies; hose; mask DX: SHAINA multivitamins(DAILY VITAMIN TAB) Take one(1) tablet daily. diphenoxylate-atropine (LOMOTIL) 2.5-0.025 mg per tablet Take 1 tablet by mouth four times a day as needed for up to 2 days. metFORMIN ER (FORTAMET) 1,000 mg 24 hr tablet Take 1 tablet by mouth daily with dinner. Generic okay budesonide-formoterol (SYMBICORT) 80-4.5 mcg/actuation inhaler Inhale 2 Puffs as instructed twice daily. No current facility-administered medications on file prior to visit. Social History Social History Tobacco Use Smoking status: Never Smokeless tobacco: Never Tobacco comments: No ETS in childhood or current home. Vaping Use Vaping status: Never Used Substance Use Topics Alcohol use: No Drug use: No Review of Symptoms REVIEW OF SYSTEMS See HPI, otherwise negative EXAM: BP 122/78 (BP Site: Left Arm, BP Position: Sitting, BP Cuff Size: Large Adult) Pulse 84 Wt 108 kg (238 lb 3.2 oz) LMP 11/16/2009 BMI 41.17 kg/m General Appearance: Well appearing, alert, in no acute distress, well-hydrated, well nourished.. Lungs: Lungs clear to auscultation. No wheezing, rhonchi, rales.. Heart: RRR without murmur, gallop, or rubs. No ectopy. Psychiatric: pleasant, cooperative Health Maintenance List Hepatitis B Vaccine(1 of 3 - 19+ 3-dose series) Never done Shingrix Vaccine(1 of 2) Never done Pneumococcal Vaccine: 50+(1 of 1 - PCV) Never done Colorectal Cancer Screening due on 02/26/2024 Mammogram Screening due on 06/21/2024 Covid-19 Vaccine( season) due on 01/04/2025 Annual PCP Team Chronic Disease Visit due on 07/09/2025 Diabetes Screening due on 01/08/2027 Lipid Screening due on 01/08/2029 DTaP,Tdap,Td Vaccine(3 - Td or Tdap) due on 01/09/2034 Spirometry Completed Influenza Vaccine Completed Hepatitis C Screening Completed HIV Screening Completed Cervical Cancer Screening Discontinued Data reviewed ASSESSMENT/PLAN: 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 Gastroesophageal reflux disease without esophagitis - ICD9: 530.81, ICD10: K21.9 - PANTOPRAZOLE 40 MG TABLET,DELAYED RELEASE 3. Belching - ICD9: 787.3, ICD10: R14.2 - PANTOPRAZOLE 40 MG TABLET,DELAYED RELEASE 4. Class 3 severe obesity with body mass index (BMI) of 40.0 to 44.9 in adult, unspecified obesity type, unspecified whether serious comorbidity present (HCC) - ICD9: 278.01, V85.41, ICD10: E66.813, E66.01, Z68.41 - Continue current medications, ok to take probiotics - PHENTERMINE 37.5 MG TABLET 5. Mild persistent asthma without complication (HCC) - ICD9: 493.90, ICD10: J45.30 - LORATADINE 10 MG TABLET 6. Foot pain, bilateral - ICD9: 729.5, ICD10: M79.671, M79.672 - CONSULT TO PODIATRY - XR FOOT GENERAL 3V AP/LAT/OBL BILATERAL 7. Vitamin D deficiency - ICD9: 268.9, ICD10: E55.9 - VITAMIN D 25 HYDROXY 8. Mixed hyperlipidemia - ICD9: 272.2, ICD10: E78.2 - Counseled on healthy diet and regular exercise - LIPID PANEL, FASTING 9. Well adult exam - ICD9: V70.0, ICD10: Z00.00 - Counseled on healthy diet and regular exercise - COMPLETE BLOOD COUNT - COMPREHENSIVE METABOLIC PANEL - VITAMIN D 25 HYDROXY - VITAMIN B12 - LIPID PANEL, FASTING 10. Encounter for vitamin deficiency screening - ICD9: V77.99, ICD10: Z13.21 - VITAMIN D 25 HYDROXY - VITAMIN B12 Follow-up in 3 months for weight check Marge Bautista Attending Note I have personally performed a face to face assessment of the patient and have reviewed the MICHAEL note and I agree. Other additions or changes: As edited Signature: Adia Robles Date: 07/18/2024 Time: 6:31 PM documented in this encounter [facility] 07-09-2024 History of Presen t illness Narrative Chief Complaint Patient presents with: Diarrhea Vomiting HPI Ronnie Katz is a 53 year old female who presents here today for a same day visit. Established pt of Dr. Sweeney, new to this office here today for GI symptoms. Pt c/o of diarrhea and vomiting. Went to [place] over the weekend, and reports she felt fine all day Tuesday and Tuesday. Bowels started to get slightly loose on Tuesday evening, but on Tuesday morning she started experiencing diarrhea. They were heading home on Tuesday. She ate grits for breakfast at the hotel, but came right back up when she went to her room. Yesterday had watery diarrhea all day, this has continued today. Nausea slightly better today; ate some applesauce. No blood in stool. Pt at this point has nothing left in her body and states her bowels are just like water. She is dry heaving, but doesn't have anything in her stomach to vomit. Pt missed work today and unsure if she can go in tomorrow. 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 Does report living with a couple, who the woman who lives with her didn't feel well Tuesday, but her symptoms were minor and she has improved. Past medical history, appointments, medications, allergies reviewed. Previous Medical History PAST MEDICAL HISTORY Diagnosis Date Diastasis of rectus abdominis 12/11/2015 Dysthymic disorder Depression (non-psychotic) Environmental allergies spring. Gallstones Genital herpes, unspecified 01/09/2007 HSV (herpes simplex virus) anogenital infection 1990 Hypercholesteremia 05/2015 Leukocytoclastic vasculitis (HCC) 2012 dx by Aliyah Wallace Onychomycosis SHAINA (obstructive sleep apnea) 04/13/2017 Persistent asthma without complication 06/12/2018 + JADA 06/2018, chronic cough, abnormal RAST. Previous Surgical History PAST SURGICAL HISTORY Procedure Laterality Date APPENDECTOMY CARPAL TUNNEL 2017 CARPAL TUNNEL Right 2018 CHOLECYSTECTOMY HX 07/05/2023 LIVER BIOPSY 07/05/2023 NEUROPLASTY &/TRANSPOS MEDIAN NRV CARPAL TUNNE Right 09/13/2016 THYROID LEFT FINE NEEDLE ASPIRATION 08/02/2007 U/ S FNA left thyroid nodule TOTAL THYROID LOBECTOMY UNI W/WO ISTHMUSECTOMY 08/31/2007 LEFT VAGINAL HYSTERECTOMY UTERUS 250 GM/< 12/01/2009 TVH for fibroid, menorrhagia, adenomyosis Family History FAMILY HISTORY Problem Relation Age of Onset other (FIBROMYALGIA) Mother Lipids Father Ischemic Heart Disease Father Heart Father [place] has hole in heart Stroke Father Diabetes Father Stroke Maternal Grandmother Alzheimer's Disease Maternal Grandmother Psychiatry Maternal Grandmother DEMENTIA Breast Cancer Maternal Grandmother Diabetes Other pcousin Heart Sister Hole in heart Thyroid Sister Allergies No Family History Asthma No Family History Patient Allergies ALLERGIES Allergen Reactions Prozac [Fluoxetine * Mental Status Change Aggressive behavior, emotional Current Medications Current Outpatient Medications on File Prior to Visit Medication Sig Calcium-Cholecalciferol, D3, 600 mg-10 mcg (400 unit) cap Take 1 capsule by mouth once daily. venlafaxine ER (EFFEXOR XR) 150 mg 24 hr capsule Take 1 capsule by mouth once daily. venlafaxine ER (EFFEXOR XR) 75 mg 24 hr capsule Take 1 capsule by mouth once daily. metFORMIN ER (GLUCOPHAGE XR) 500 mg 24 hr tablet Take 2 tablets by mouth once daily. With dinner. metFORMIN ER (FORTAMET) 1,000 mg 24 hr tablet Take 1 tablet by mouth daily with dinner. Generic okay Phentermine HCl 37.5 mg tablet Take 1 tablet by mouth once daily for 90 days. BMI 42.62 dexAMETHasone 0.1 % ophthalmic solution Instill 1 drop into affected ear canal once daily as needed potassium chloride (K-TAB) 10 mEq tablet Take 1 tablet by mouth daily with breakfast. traZODone (DESYREL) 50 mg tablet Take 1 tablet by mouth daily at bedtime. levothyroxine (SYNTHROID) 75 mcg tablet Take 1 tablet by mouth daily 5 days per week. Take 1.5 tablets by mouth daily 2 days per week. Take in the morning on an empty stomach. pantoprazole DR (PROTONIX) 40 mg tablet Take 1 tablet by mouth once daily. furosemide (LASIX) 40 mg tablet Take 1 tablet by mouth two times a day. metFORMIN ER (FORTAMET) 500 mg 24 hr tablet Take 1 tablet by mouth daily with dinner. Take two tablets by mouth daily with dinner. loratadine (CLARITIN) 10 mg tablet Take 1 tablet by mouth once daily. budesonide-formoterol (SYMBICORT) 80-4.5 mcg/actuation inhaler Inhale 2 Puffs as instructed twice daily. albuterol HFA (PROVENTIL HFA, VENTOLIN HFA) 90 mcg/actuation inhaler Inhale 2 Puffs as instructed every 4 hours as needed. cholecalciferol (VITAMIN D3) 50 mcg (2,000 unit) tablet Take 1 tablet by mouth once daily. CPAP Initiate CPAP @ 10 cm of water with humidification. Mask (per patient preference) optional chin strap (if indicated) , filters, tubing, humidifier and lifetime supplies. COMPOUNDED PRESCRIPTION CPAP Supplies; hose; mask DX: SHAINA multivitamins(DAILY VITAMIN TAB) Take one(1) tablet daily. No current facility-administered medications on file prior to visit. Social History Social History Tobacco Use Smoking status: Never Smokeless tobacco: Never Tobacco comments: No ETS in childhood or current home. Vaping Use Vaping status: Never Used Substance Use Topics Alcohol use: No Drug use: No EXAM: BP 110/76 (BP Site: Left Arm, BP Position: Sitting, BP Cuff Size: Large Adult) Pulse 96 Resp 18 Wt 109.6 kg (241 lb 10 oz) LMP 11/16/2009 BMI 41.76 kg/m General Appearance: Well appearing, alert, in no acute distress, well-hydrated, well nourished.. Heart: RRR without murmur, gallop, or rubs. No ectopy. Abdomen: Normal abdominal exam, Abdomen soft, non-tender. Bowel sounds normal. No masses, organomegaly. Health Maintenance List Hepatitis B Vaccine(1 of 3 - 19+ 3-dose series) Never done Shingrix Vaccine(1 of 2) Never done Pneumococcal Vaccine: 50+(1 of 1 - PCV) Never done Colorectal Cancer Screening due on 02/26/2024 Mammogram Screening due on 06/21/2024 Covid-19 Vaccine( season) due on 01/04/2025 Annual PCP Team Chronic Disease Visit due on 04/19/2025 Diabetes Screening due on 01/08/2027 Lipid Screening due on 01/08/2029 DTaP,Tdap,Td Vaccine(3 - Td or Tdap) due on 01/09/2034 Spirometry Completed Influenza Vaccine Completed Hepatitis C Screening Completed HIV Screening Completed Cervical Cancer Screening Discontinued Data reviewed None ASSESSMENT/PLAN: 1. Diarrhea, unspecified type - ICD9: 787.91, ICD10: R19.7 (primary diagnosis) Continue symptomatic treatment - DIPHENOXYLATE-ATROPINE 2.5 MG-0.025 MG TABLET 2. Nausea and vomiting, unspecified vomiting type - ICD9: 787.01, ICD10: R11.2 Symptomatic treatment - ONDANSETRON HCL 4 MG TABLET Note for work 07/09 and 07/10 Follow up prn Medical Decision Making: Problems: Low: Acute, uncomplicated illness or injury Risk: Moderate: Drug management Medical Decision Making Level: 3 - Low Manisha Garrett MD documented in this encounter [facility] 07-09-2024 Note HNO ID: [id number] Author: MANISHA GARRETT MD Service: ? Author Type: Physician Type: Progress Notes Filed: 07/09/2024 19:35 Note Text: Chief Complaint Patient presents with: Diarrhea Vomiting HPI Ronnie Katz is a 53 year old female who presents here today for a same day visit. Established pt of Dr. Sweeney, new to this office here today for GI symptoms. Pt c/o of diarrhea and vomiting. Went to [place] over the weekend, and reports she felt fine all day Tuesday and Tuesday. Bowels started to get slightly loose on Tuesday evening, but on Tuesday morning she started experiencing diarrhea. They were heading home on Tuesday. She ate grits for breakfast at the hotel, but came right back up when she went to her room. Yesterday had watery diarrhea all day, this has continued today. Nausea slightly better today; ate some applesauce. No blood in stool. Pt at this point has nothing left in her body and states her bowels are just like water. She is dry heaving, but doesn't have anything in her stomach to vomit. Pt missed work today and unsure if she can go in tomorrow. 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 Does report living with a couple, who the woman who lives with her didn't feel well Tuesday, but her symptoms were minor and she has improved. Past medical history, appointments, medications, allergies reviewed. Previous Medical History PAST MEDICAL HISTORY Diagnosis Date Diastasis of rectus abdominis 12/11/2015 Dysthymic disorder Depression (non-psychotic) Environmental allergies Spring worse. Gallstones Genital herpes, unspecified 01/09/2007 HSV (herpes simplex virus) anogenital infection 1990 Hypercholesteremia 05/2015 Leukocytoclastic vasculitis (HCC) 2012 dx by Aliyah Wallace Onychomycosis SHAINA (obstructive sleep apnea) 04/13/2017 Persistent asthma without complication 06/12/2018 + JADA 06/2018, chronic cough, abnormal RAST. Previous Surgical History PAST SURGICAL HISTORY Procedure Laterality Date APPENDECTOMY CARPAL TUNNEL 2017 CARPAL TUNNEL Right 2018 CHOLECYSTECTOMY HX 07/05/2023 LIVER BIOPSY 07/05/2023 NEUROPLASTY AND/TRANSPOS MEDIAN NRV CARPAL TUNNE Right 09/13/2016 THYROID LEFT FINE NEEDLE ASPIRATION 08/02/2007 U/ S FNA left thyroid nodule TOTAL THYROID LOBECTOMY UNI W/WO ISTHMUSECTOMY 08/31/2007 LEFT VAGINAL HYSTERECTOMY UTERUS 250 GM/< 12/01/2009 TVH for fibroid, menorrhagia, adenomyosis Family History FAMILY HISTORY Problem Relation Age of Onset other (FIBROMYALGIA) Mother Lipids Father Ischemic Heart Disease Father Heart Father GA has hole in heart Stroke Father Diabetes Father Stroke Maternal Grandmother Alzheimer's Disease Maternal Grandmother Psychiatry Maternal Grandmother DEMENTIA Breast Cancer Maternal Grandmother Diabetes Other pcousin Heart Sister Hole in heart Thyroid Sister Allergies No Family History Asthma No Family History Patient Allergies ALLERGIES Allergen Reactions Prozac [Fluoxetine * Mental Status Change Aggressive behavior, emotional Current Medications Current Outpatient Medications on File Prior to Visit Medication Sig Calcium-Cholecalciferol, D3, 600 mg-10 mcg (400 unit) cap Take 1 capsule by mouth once daily. venlafaxine ER (EFFEXOR XR) 150 mg 24 hr capsule Take 1 capsule by mouth once daily. venlafaxine ER (EFFEXOR XR) 75 mg 24 hr capsule Take 1 capsule by mouth once daily. metFORMIN ER (GLUCOPHAGE XR) 500 mg 24 hr tablet Take 2 tablets by mouth once daily. With dinner. metFORMIN ER (FORTAMET) 1,000 mg 24 hr tablet Take 1 tablet by mouth daily with dinner. Generic okay Phentermine HCl 37.5 mg tablet Take 1 tablet by mouth once daily for 90 days. BMI 42.62 dexAMETHasone 0.1 % ophthalmic solution Instill 1 drop into affected ear canal once daily as needed potassium chloride (K-TAB) 10 mEq tablet Take 1 tablet by mouth daily with breakfast. traZODone (DESYREL) 50 mg tablet Take 1 tablet by mouth daily at bedtime. levothyroxine (SYNTHROID) 75 mcg tablet Take 1 tablet by mouth daily 5 days per week. Take 1.5 tablets by mouth daily 2 days per week. Take in the morning on an empty stomach. pantoprazole DR (PROTONIX) 40 mg tablet Take 1 tablet by mouth once daily. furosemide (LASIX) 40 mg tablet Take 1 tablet by mouth two times a day. metFORMIN ER (FORTAMET) 500 mg 24 hr tablet Take 1 tablet by mouth daily with dinner. Take two tablets by mouth daily with dinner. loratadine (CLARITIN) 10 mg tablet Take 1 tablet by mouth once daily. budesonide-formoterol (SYMBICORT) 80-4.5 mcg/actuation inhaler Inhale 2 Puffs as instructed twice daily. albuterol HFA (PROVENTIL HFA, VENTOLIN HFA) 90 mcg/actuation inhaler Inhale 2 Puffs as instructed every 4 hours as needed. cholecalciferol (VITAMIN D3) 50 mcg (2,000 unit) tablet Take 1 tablet by mouth once daily. CPAP Initiate CPAP @ 10 cm of water with humidification. Mask (per patient preference) optional chin strap (more content not included)... [facility] 06-04-2024 Telephone encounter Note See refill request June 04, 2024 [facility] 06-04-2024 Miscellaneous Notes See refill request June 04, 2024 documented in this encounter [facility] 05-09-2024 Telephone encounter Note The following approved medication requests have been transmitted electronically. Requested Prescriptions Signed Prescriptions Disp Refills metFORMIN ER (GLUCOPHAGE XR) 500 mg 24 hr tablet 180 tablet 2 Sig: Take 2 tablets by mouth once daily. With dinner. Authorizing Provider: DEISI JULES APRN.FLANGING ROLL OPERATOR [facility] 05-09-2024 Miscellaneous Notes The following approved medication requests have been transmitted electronically. Requested Prescriptions Signed Prescriptions Disp Refills metFORMIN ER (GLUCOPHAGE XR) 500 mg 24 hr tablet 180 tablet 2 Sig: Take 2 tablets by mouth once daily. With dinner. Authorizing Provider: DEISI JULES APRN.CNP Pharmacist with [facility] calls to request new prescription for metformin (Glucophage) and not Fortamet. Current prescription will cost thousands of dollars. Pended prescription for 1000 mg but will require taking two 500 mg pills at a time. Please review. Shawna Mason RN documented in this encounter [facility] 05-08-2024 Telephone encounter Note Pharmacist with [facility] calls to request new prescription for metformin (Glucophage) and not Fortamet. Current prescription will cost thousands of dollars. Pended prescription for 1000 mg but will require taking two 500 mg pills at a time. Please review. Shawna Mason RN [facility] 05-07-2024 Telephone encounter Note Prescription Refill Information The patient has been identified by name and date of : Yes Caregiver verified no other encounters exist for this prescription request: Yes Caregiver confirmed with patient/requestor that no other refills are due, in the near future, with this provider at this time: Yes The last office visit in the department: 04/19/2024 Does the patient have a future office visit with this provider/department: Yes Requested Prescriptions Pending Prescriptions Disp Refills metFORMIN ER (FORTAMET) 1,000 mg 24 hr tablet 90 tablet 1 Sig: Take 1 tablet by mouth daily with dinner. Generic okay Radha Moyer LPN May 07, 2024 2:[address] [facility] 05-07-2024 Miscellaneous Notes Prescription Refill Information The patient has been identified by name and date of : Yes Caregiver verified no other encounters exist for this prescription request: Yes Caregiver confirmed with patient/requestor that no other refills are due, in the near future, with this provider at this time: Yes The last office visit in the department: 04/19/2024 Does the patient have a future office visit with this provider/department: Yes Requested Prescriptions Pending Prescriptions Disp Refills metFORMIN ER (FORTAMET) 1,000 mg 24 hr tablet 90 tablet 1 Sig: Take 1 tablet by mouth daily with dinner. Generic okay Radha Moyer LPN May 07, 2024 2:32 PM documented in this encounter [facility] 04-19-2024 Note HNO ID: [id number] Author: ADIA ROBLES APRN.FLANGING ROLL OPERATOR Service: ? Author Type: Nurse Practitioner Type: Progress Notes Filed: 04/20/2024 14:16 Note Text: Chief Complaint Patient presents with: Medication Follow-up: Restart adipex HPI Ronnie Katz is a 53 year old female who presents here today for Above Complaints. Weight-has had a rough last month. Appetite is very high right now. Recently put on some weight r/t the stress and holiday-thinks she put on an extra 10 pounds that she had lost. Has tolerated the Adipex well in the past and would like to restart this. Past medical history, appointments, medications, allergies reviewed. Previous Medical History PAST MEDICAL HISTORY Diagnosis Date Diastasis of rectus abdominis 12/11/2015 Dysthymic disorder Depression (non-psychotic) Environmental allergies Spring worse. Gallstones Genital herpes, unspecified 01/09/2007 HSV (herpes simplex virus) anogenital infection 1990 Hypercholesteremia 05/2015 Leukocytoclastic vasculitis (HCC) 2012 dx by Aliyah Wallace Onychomycosis SHAINA (obstructive sleep apnea) 04/13/2017 Persistent asthma without complication 06/12/2018 + JADA 06/2018, chronic cough, abnormal RAST. Previous Surgical History PAST SURGICAL HISTORY Procedure Laterality Date APPENDECTOMY CARPAL TUNNEL 2017 CARPAL TUNNEL Right 2018 CHOLECYSTECTOMY HX 07/05/2023 LIVER BIOPSY 07/05/2023 NEUROPLASTY AND/TRANSPOS MEDIAN NRV CARPAL TUNNE Right 09/13/2016 THYROID LEFT FINE NEEDLE ASPIRATION 08/02/2007 U/ S FNA left thyroid nodule TOTAL THYROID LOBECTOMY UNI W/WO ISTHMUSECTOMY 08/31/2007 LEFT VAGINAL HYSTERECTOMY UTERUS 250 GM/< 12/01/2009 TVH for fibroid, menorrhagia, adenomyosis Family History FAMILY HISTORY Problem Relation Age of Onset other (FIBROMYALGIA) Mother Lipids Father Ischemic Heart Disease Father Heart Father GA has hole in heart Stroke Father Diabetes Father Stroke Maternal Grandmother Alzheimer's Disease Maternal Grandmother Psychiatry Maternal Grandmother DEMENTIA Breast Cancer Maternal Grandmother Diabetes Other pcousin Heart Sister Hole in heart Thyroid Sister Allergies No Family History Asthma No Family History Patient Allergies ALLERGIES Allergen Reactions Prozac [Fluoxetine * Mental Status Change Aggressive behavior, emotional Current Medications Current Outpatient Medications on File Prior to Visit Medication Sig potassium chloride (K-TAB) 10 mEq tablet Take 1 tablet by mouth daily with breakfast. traZODone (DESYREL) 50 mg tablet Take 1 tablet by mouth daily at bedtime. levothyroxine (SYNTHROID) 75 mcg tablet Take 1 tablet by mouth daily 5 days per week. Take 1.5 tablets by mouth daily 2 days per week. Take in the morning on an empty stomach. pantoprazole DR (PROTONIX) 40 mg tablet Take 1 tablet by mouth once daily. Phentermine HCl 37.5 mg tablet once daily. furosemide (LASIX) 40 mg tablet Take 1 tablet by mouth two times a day. venlafaxine ER (EFFEXOR XR) 150 mg 24 hr capsule Take 1 capsule by mouth once daily. venlafaxine ER (EFFEXOR XR) 75 mg 24 hr capsule Take 1 capsule by mouth once daily. metFORMIN ER (FORTAMET) 500 mg 24 hr tablet Take 1 tablet by mouth daily with dinner. Take two tablets by mouth daily with dinner. metFORMIN ER (FORTAMET) 1,000 mg 24 hr tablet Take 1 tablet by mouth daily with dinner. Generic okay loratadine (CLARITIN) 10 mg tablet Take 1 tablet by mouth once daily. Calcium-Cholecalciferol, D3, 600 mg-10 mcg (400 unit) cap Take 1 capsule by mouth once daily. albuterol HFA (PROVENTIL HFA, VENTOLIN HFA) 90 mcg/actuation inhaler Inhale 2 Puffs as instructed every 4 hours as needed. cholecalciferol (VITAMIN D3) 50 mcg (2,000 unit) tablet Take 1 tablet by mouth once daily. CPAP Initiate CPAP @ 10 cm of water with humidification. Mask (per patient preference) optional chin strap (if indicated) , filters, tubing, humidifier and lifetime supplies. COMPOUNDED PRESCRIPTION CPAP Supplies; hose; mask DX: SHAINA multivitamins(DAILY VITAMIN TAB) Take one(1) tablet daily. oxyCODONE IR (ROXICODONE) 5 mg immediate release tablet TAKE 1 TO 2 TABLETS BY MOUTH EVERY 6 HOURS NEEDED. DO NOT EXCEED 6 TABLETS IN 24 HOURS (Patient not taking: Reported on 04/19/2024) budesonide-formoterol (SYMBICORT) 80-4.5 mcg/actuation inhaler Inhale 2 Puffs as instructed twice daily. No current facility-administered medications on file prior to visit. Social History Social History Tobacco Use Smoking status: Never Smokeless tobacco: Never Tobacco comments: No ETS in childhood or current home. Vaping Use Vaping status: Never Used Substance Use Topics Alcohol use: No Drug use: No Review of Symptoms REVIEW OF SYSTEMS See HPI, otherwise negative EXAM: BP 118/84 (BP Site: Left Arm, BP Position: Sitting, BP Cuff Size: Regular Adult) Pulse 84 Resp 16 Wt 111.9 kg (246 lb 9.6 oz) LMP 11/16/2009 SpO2 (more content not included)... [facility] 04-19-2024 History of Presen t illness Narrative Chief Complaint Patient presents with: Medication Follow-up: Restart adipex HPI Ronnie Katz is a 53 year old female who presents here today for Above Complaints. Weight-has had a rough last month. Appetite is very high right now. Recently put on some weight r/t the stress and holiday-thinks she put on an extra 10 pounds that she had lost. Has tolerated the Adipex well in the past and would like to restart this. Past medical history, appointments, medications, allergies reviewed. Previous Medical History PAST MEDICAL HISTORY Diagnosis Date Diastasis of rectus abdominis 12/11/2015 Dysthymic disorder Depression (non-psychotic) Environmental allergies Spring worse. Gallstones Genital herpes, unspecified 01/09/2007 HSV (herpes simplex virus) anogenital infection 1990 Hypercholesteremia 05/2015 Leukocytoclastic vasculitis (HCC) 2012 dx by Aliyah Wallace Onychomycosis SHAINA (obstructive sleep apnea) 04/13/2017 Persistent asthma without complication 06/12/2018 + JADA 06/2018, chronic cough, abnormal RAST. Previous Surgical History PAST SURGICAL HISTORY Procedure Laterality Date APPENDECTOMY CARPAL TUNNEL 2017 CARPAL TUNNEL Right 2018 CHOLECYSTECTOMY HX 07/05/2023 LIVER BIOPSY 07/05/2023 NEUROPLASTY &/TRANSPOS MEDIAN NRV CARPAL TUNNE Right 09/13/2016 THYROID LEFT FINE NEEDLE ASPIRATION 08/02/2007 U/ S FNA left thyroid nodule TOTAL THYROID LOBECTOMY UNI W/WO ISTHMUSECTOMY 08/31/2007 LEFT VAGINAL HYSTERECTOMY UTERUS 250 GM/< 12/01/2009 TVH for fibroid, menorrhagia, adenomyosis Family History FAMILY HISTORY Problem Relation Age of Onset other (FIBROMYALGIA) Mother Lipids Father Ischemic Heart Disease Father Heart Father GA has hole in heart Stroke Father Diabetes Father Stroke Maternal Grandmother Alzheimer's Disease Maternal Grandmother Psychiatry Maternal Grandmother DEMENTIA Breast Cancer Maternal Grandmother Diabetes Other pcousin Heart Sister Hole in heart Thyroid Sister Allergies No Family History Asthma No Family History Patient Allergies ALLERGIES Allergen Reactions Prozac [Fluoxetine * Mental Status Change Aggressive behavior, emotional Current Medications Current Outpatient Medications on File Prior to Visit Medication Sig potassium chloride (K-TAB) 10 mEq tablet Take 1 tablet by mouth daily with breakfast. traZODone (DESYREL) 50 mg tablet Take 1 tablet by mouth daily at bedtime. levothyroxine (SYNTHROID) 75 mcg tablet Take 1 tablet by mouth daily 5 days per week. Take 1.5 tablets by mouth daily 2 days per week. Take in the morning on an empty stomach. pantoprazole DR (PROTONIX) 40 mg tablet Take 1 tablet by mouth once daily. Phentermine HCl 37.5 mg tablet once daily. furosemide (LASIX) 40 mg tablet Take 1 tablet by mouth two times a day. venlafaxine ER (EFFEXOR XR) 150 mg 24 hr capsule Take 1 capsule by mouth once daily. venlafaxine ER (EFFEXOR XR) 75 mg 24 hr capsule Take 1 capsule by mouth once daily. metFORMIN ER (FORTAMET) 500 mg 24 hr tablet Take 1 tablet by mouth daily with dinner. Take two tablets by mouth daily with dinner. metFORMIN ER (FORTAMET) 1,000 mg 24 hr tablet Take 1 tablet by mouth daily with dinner. Generic okay loratadine (CLARITIN) 10 mg tablet Take 1 tablet by mouth once daily. Calcium-Cholecalciferol, D3, 600 mg-10 mcg (400 unit) cap Take 1 capsule by mouth once daily. albuterol HFA (PROVENTIL HFA, VENTOLIN HFA) 90 mcg/actuation inhaler Inhale 2 Puffs as instructed every 4 hours as needed. cholecalciferol (VITAMIN D3) 50 mcg (2,000 unit) tablet Take 1 tablet by mouth once daily. CPAP Initiate CPAP @ 10 cm of water with humidification. Mask (per patient preference) optional chin strap (if indicated) , filters, tubing, humidifier and lifetime supplies. COMPOUNDED PRESCRIPTION CPAP Supplies; hose; mask DX: SHAINA multivitamins(DAILY VITAMIN TAB) Take one(1) tablet daily. oxyCODONE IR (ROXICODONE) 5 mg immediate release tablet TAKE 1 TO 2 TABLETS BY MOUTH EVERY 6 HOURS NEEDED. DO NOT EXCEED 6 TABLETS IN 24 HOURS (Patient not taking: Reported on 04/19/2024) budesonide-formoterol (SYMBICORT) 80-4.5 mcg/actuation inhaler Inhale 2 Puffs as instructed twice daily. No current facility-administered medications on file prior to visit. Social History Social History Tobacco Use Smoking status: Never Smokeless tobacco: Never Tobacco comments: No ETS in childhood or current home. Vaping Use Vaping status: Never Used Substance Use Topics Alcohol use: No Drug use: No Review of Symptoms REVIEW OF SYSTEMS See HPI, otherwise negative EXAM: BP 118/84 (BP Site: Left Arm, BP Position: Sitting, BP Cuff Size: Regular Adult) Pulse 84 Resp 16 Wt 111.9 kg (246 lb 9.6 oz) LMP 11/16/2009 SpO2 95% BMI 42.62 kg/m General Appearance: Well appearing, alert, in no acute distress, well-hydrated, well nourished.. Lungs: Lungs clear to auscultation. No wheezing, rhonchi, rales.. Heart: RRR without murmur, gallop, or rubs. No ectopy. Psychiatric: pleasant, cooperative. Health Maintenance List Hepatitis B Vaccine(1 of 3 - 19+ 3-dose series) Never done Shingrix Vaccine(1 of 2) Never done Pneumococcal Vaccine: 50+(1 of 1 - PCV) Never done Colorectal Cancer Screening due on 02/26/2024 Mammogram Screening due on 06/21/2024 Covid-19 Vaccine(2023- season) due on 01/04/2025 Annual PCP Team Chronic Disease Visit due on 01/04/2025 Diabetes Screening due on 01/08/2027 Lipid Screening due on 01/08/2029 DTaP,Tdap,Td Vaccine(3 - Td or Tdap) due on 01/09/2034 Spirometry Completed Influenza Vaccine Completed Hepatitis C Screening Completed HIV Screening Completed Cervical Cancer Screening Discontinued Data reviewed Previous records, office notes, PDMP report PDMP website checked and validated. All prescriptions have been APPROPRIATELY filled. No suspicious activity was identified. 04/19/2024 by Adia Robles CNP. ASSESSMENT/PLAN: 1. Class 3 severe obesity with body mass index (BMI) of 40.0 to 44.9 in adult, unspecified obesity type, unspecified whether serious comorbidity present (HCC) - ICD9: 278.01, V85.41, ICD10: E66.813, E66.01, Z68.41 (primary diagnosis) Weight increasing - Behavioral and pharmacological intervention F/u in the office in 3 months - PHENTERMINE 37.5 MG TABLET 2. Ear itching - ICD9: 698.9, ICD10: L29.9 - DEXAMETHASONE SODIUM PHOSPHATE 0.1 % EYE DROPS Adia Robles APRN.JENA documented in this encounter [facility] 04-06-2024 Telephone encounter Note Patient has been identified by name and date of : Yes, Provider Sweeney Date 04/06/2024 Time 830 Patient phones for refill(s): Requested Prescriptions Pending Prescriptions Disp Refills potassium chloride (K-TAB) 10 mEq tablet 90 tablet 1 Sig: Take 1 tablet by mouth daily with breakfast. traZODone (DESYREL) 50 mg tablet 90 tablet 3 Sig: Take 1 tablet by mouth daily at bedtime. levothyroxine (SYNTHROID) 75 mcg tablet 90 tablet 1 Sig: Take 1 tablet by mouth daily 5 days per week. Take 1.5 tablets by mouth daily 2 days per week. Take in the morning on an empty stomach. pantoprazole DR (PROTONIX) 40 mg tablet 30 tablet 5 Sig: Take 1 tablet by mouth once daily. Date of last office visit in primary care: 01/05/2024 Date of next office visit in primary care: 04/10/2024 Please advise. Thank you. Anel Whiting. [facility] 04-06-2024 Miscellaneous Notes Patient has been identified by name and date of : Yes, Provider Patel Date 04/06/2024 Time 830 Patient phones for refill(s): Requested Prescriptions Pending Prescriptions Disp Refills potassium chloride (K-TAB) 10 mEq tablet 90 tablet 1 Sig: Take 1 tablet by mouth daily with breakfast. traZODone (DESYREL) 50 mg tablet 90 tablet 3 Sig: Take 1 tablet by mouth daily at bedtime. levothyroxine (SYNTHROID) 75 mcg tablet 90 tablet 1 Sig: Take 1 tablet by mouth daily 5 days per week. Take 1.5 tablets by mouth daily 2 days per week. Take in the morning on an empty stomach. pantoprazole DR (PROTONIX) 40 mg tablet 30 tablet 5 Sig: Take 1 tablet by mouth once daily. Date of last office visit in primary care: 01/05/2024 Date of next office visit in primary care: 04/10/2024 Please advise. Thank you. Anel Whiting. documented in this encounter [facility] 04-02-2024 Telephone encounter Note Detailed VM left on pt's identified voicemail of information below. Ronnie Akhtar LPN [facility] 04-02-2024 Miscellaneous Notes Detailed VM left on pt's identified voicemail of information below. Ronnie Akhtar LPN Patient has appt this week to discuss further Stanley Sweeney DO Pt called in to see if there are any labs that need to be done. Please advise pt. Pt also calling to get a follow up apt regarding medication update. 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 Ronnie Akhtar LPN documented in this encounter [facility] 04-02-2024 Telephone encounter Note Patient has appt this week to discuss further Stanley Sweeney DO [facility] 03-31-2024 Telephone encounter Note Pt called in to see if there are any labs that need to be done. Please advise pt. Pt also calling to get a follow up apt regarding medication update. 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 Ronnie Akhtar LPN [facility] 03-02-2024 Telephone encounter Note Patient returned call and given provider's message below and patient verbalized understanding. Zion Tarango RN [facility] 03-02-2024 Miscellaneous Notes Patient returned call and given provider's message below and patient verbalized understanding. Zion Tarango RN Left VM instructing patient to return call to receive results. Jessie Hammond MA Please inform patient that x-ray is negative. Cough suppressant sent to pharmacy. Seth Gan APRN.FLANGING ROLL OPERATOR documented in this encounter [facility] 03-02-2024 Telephone encounter Note Left VM instructing patient to return call to receive results. Jessie Hammond MA [facility] 03-01-2024 Telephone encounter Note Please inform patient that x-ray is negative. Cough suppressant sent to pharmacy. Seth Gan APRN.FLANGING ROLL OPERATOR [facility] 03-01-2024 History of Presen t illness Narrative Radiology Service Progress Note PATIENT NAME: Ronnie Katz DATE OF SERVICE: March 01, 2024 TIME: 3:16 PM PATIENT IDENTITY VERIFICATION COMPLETED USING TWO (2) IDENTIFIERS: Name and Date of confirmed by patient verbally. FALL SCREENING: Has the patient had 2 falls in the last year or 1 fall with injury or currently using an Ambulatory Assistive Device (Walker, Cane, Wheelchair, Crutches, etc.)? No PATIENT GENDER DATA: Female. status: : No status: NO. PATIENT RELEVANT IMPLANT DATA REVIEWED: Not Applicable PATIENT PRESENTS WITH AN IMPLANTABLE OR ATTACHED CO TEACHER: No RADIOLOGY DEPARTMENT: General X-ray: Exam(s) Completed: Chest X-Ray PERIPHERAL IV DATA: Not applicable SIGNED BY: RT Estefani(Amalia) March 01, 2024 3:16 PM documented in this encounter [facility] 03-01-2024 Note HNO ID: [id number] Author: SRINI MEEK RT(R) Service: Radiology Author Type: Technologist Type: Progress Notes Filed: 03/01/2024 15:21 Note Text: Radiology Service Progress Note PATIENT NAME: Ronnie Katz DATE OF SERVICE: March 01, 2024 TIME: 3:16 PM PATIENT IDENTITY VERIFICATION COMPLETED USING TWO (2) IDENTIFIERS: Name and Date of confirmed by patient verbally. FALL SCREENING: Has the patient had 2 falls in the last year or 1 fall with injury or currently using an Ambulatory Assistive Device (Walker, Cane, Wheelchair, Crutches, etc.)? No PATIENT GENDER DATA: Female. status: : No status: NO. PATIENT RELEVANT IMPLANT DATA REVIEWED: Not Applicable PATIENT PRESENTS WITH AN IMPLANTABLE OR ATTACHED CO TEACHER: No RADIOLOGY DEPARTMENT: General X-ray: Exam(s) Completed: Chest X-Ray PERIPHERAL IV DATA: Not applicable SIGNED BY: Srini Meek RT(R) March 01, 2024 3:16 PM [facility] 03-01-2024 Note HNO ID: [id number] Author: SETH GAN APRN.FLANGING ROLL OPERATOR Service: ? Author Type: Nurse Practitioner Type: Progress Notes Filed: 03/01/2024 15:35 Note Text: Subjective HPI Nontoxic-appearing female presents urgent care chief complaint cough chest congestion sore throat headache fatigue body aches chills loose stools. Duration of symptoms 5 days. Associate symptoms listed above. Most prominent symptom today is the fatigue and cough. Significant other sick similar signs symptoms. OTC medications none recently. Denies any chest pain shortness of breath or hemoptysis. Past medical history prescription medications allergies reviewed. BP 106/75 Pulse 93 Temp 37 ?C (98.6 ?F) Resp 20 Wt 108.3 kg (238 lb 12.1 oz) LMP 11/16/2009 SpO2 96% BMI 41.27 kg/m? .Patient presents with: Cough: Chest congestion, ST x5 days PAST MEDICAL HISTORY Diagnosis Date Diastasis of rectus abdominis 12/11/2015 Dysthymic disorder Depression (non-psychotic) Environmental allergies Spring worse. 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 PAST SURGICAL HISTORY Procedure Laterality Date APPENDECTOMY CARPAL TUNNEL 2017 CARPAL TUNNEL Right 2018 CHOLECYSTECTOMY HX 07/05/2023 LIVER BIOPSY 07/05/2023 NEUROPLASTY AND/TRANSPOS MEDIAN NRV CARPAL TUNNE Right 09/13/2016 THYROID LEFT FINE NEEDLE ASPIRATION 08/02/2007 U/ S FNA left thyroid nodule TOTAL THYROID LOBECTOMY UNI W/WO ISTHMUSECTOMY 08/31/2007 LEFT VAGINAL HYSTERECTOMY UTERUS 250 GM/< 12/01/2009 TVH for fibroid, menorrhagia, adenomyosis ALLERGIES Prozac [Fluoxetine Hcl] MEDICATIONS oxyCODONE IR (ROXICODONE) 5 mg immediate release tablet TAKE 1 TO 2 TABLETS BY MOUTH EVERY 6 HOURS NEEDED. DO NOT EXCEED 6 TABLETS IN 24 HOURS Phentermine HCl 37.5 mg tablet once daily. furosemide (LASIX) 40 mg tablet Take 1 tablet by mouth two times a day. venlafaxine ER (EFFEXOR XR) 150 mg 24 hr capsule Take 1 capsule by mouth once daily. venlafaxine ER (EFFEXOR XR) 75 mg 24 hr capsule Take 1 capsule by mouth once daily. metFORMIN ER (FORTAMET) 500 mg 24 hr tablet Take 1 tablet by mouth daily with dinner. Take two tablets by mouth daily with dinner. levothyroxine (SYNTHROID) 75 mcg tablet Take 1 tablet by mouth daily 5 days per week. Take 1.5 tablets by mouth daily 2 days per week. Take in the morning on an empty stomach. metFORMIN ER (FORTAMET) 1,000 mg 24 hr tablet Take 1 tablet by mouth daily with dinner. Generic okay potassium chloride (K-TAB) 10 mEq tablet Take 1 tablet by mouth daily with breakfast. pantoprazole DR (PROTONIX) 40 mg tablet Take 1 tablet by mouth once daily. loratadine (CLARITIN) 10 mg tablet Take 1 tablet by mouth once daily. traZODone (DESYREL) 50 mg tablet Take 1 tablet by mouth daily at bedtime. Calcium-Cholecalciferol, D3, 600 mg-10 mcg (400 unit) cap Take 1 capsule by mouth once daily. budesonide-formoterol (SYMBICORT) 80-4.5 mcg/actuation inhaler Inhale 2 Puffs as instructed twice daily. albuterol HFA (PROVENTIL HFA, VENTOLIN HFA) 90 mcg/actuation inhaler Inhale 2 Puffs as instructed every 4 hours as needed. cholecalciferol (VITAMIN D3) 50 mcg (2,000 unit) tablet Take 1 tablet by mouth once daily. CPAP Initiate CPAP @ 10 cm of water with humidification. Mask (per patient preference) optional chin strap (if indicated) , filters, tubing, humidifier and lifetime supplies. COMPOUNDED PRESCRIPTION CPAP Supplies; hose; mask DX: SHAINA multivitamins(DAILY VITAMIN TAB) Take one(1) tablet daily. FAMILY HISTORY Problem Relation Age of Onset other (FIBROMYALGIA) Mother Lipids Father Ischemic Heart Disease Father Heart Father [place] has hole in heart Stroke Father Diabetes Father Stroke Maternal Grandmother Alzheimer's Disease Maternal Grandmother Psychiatry Maternal Grandmother DEMENTIA Breast Cancer Maternal Grandmother Diabetes Other pcousin Heart Sister Hole in heart Thyroid Sister Allergies No Family History Asthma No Family History Social History Tobacco Use Smoking status: Never Smokeless tobacco: Never Tobacco comments: No ETS in childhood or current home. Vaping Use Vaping status: Never Used Substance Use Topics Alcohol use: No Drug use: No Review of Systems Constitutional: Positive for chills, fever and malaise/fatigue. HENT: Positive for congestion and sore throat. Negative for ear discharge, ear pain and sinus pain. Eyes: Negative for blurred vision, pain, discharge and redness. Respiratory: Positive for cough. Negative for hemoptysis, sputum production, shortness of breath, wheezing and stridor. Cardiovascular: Negative for chest pain. Gastr (more content not included)... [facility] 03-01-2024 History of Presen t illness Narrative Subjective HPI Nontoxic-appearing female presents urgent care chief complaint cough chest congestion sore throat headache fatigue body aches chills loose stools. Duration of symptoms 5 days. Associate symptoms listed above. Most prominent symptom today is the fatigue and cough. Significant other sick similar signs symptoms. OTC medications none recently. Denies any chest pain shortness of breath or hemoptysis. Past medical history prescription medications allergies reviewed. BP 106/75 Pulse 93 Temp 37 C (98.6 F) Resp 20 Wt 108.3 kg (238 lb 12.1 oz) LMP 11/16/2009 SpO2 96% BMI 41.27 kg/m .Patient presents with: Cough: Chest congestion, ST x5 days PAST MEDICAL HISTORY Diagnosis Date Diastasis of rectus abdominis 12/11/2015 Dysthymic disorder Depression (non-psychotic) Environmental allergies Spring worse. Gallstones Genital herpes, unspecified 01/09/2007 HSV (herpes simplex virus) anogenital infection 1990 Hypercholesteremia 05/2015 Leukocytoclastic vasculitis (HCC) 2012 dx by Aliyah Rodrigo Onychomycosis SHAINA (obstructive sleep apnea) 04/13/2017 Persistent asthma without complication 06/12/2018 + JADA 06/2018, chronic cough, abnormal RAST. PAST SURGICAL HISTORY Procedure Laterality Date APPENDECTOMY CARPAL TUNNEL 2017 CARPAL TUNNEL Right 2018 CHOLECYSTECTOMY HX 07/05/2023 LIVER BIOPSY 07/05/2023 NEUROPLASTY &/TRANSPOS MEDIAN NRV CARPAL TUNNE Right 09/13/2016 THYROID LEFT FINE NEEDLE ASPIRATION 08/02/2007 U/ S FNA left thyroid nodule TOTAL THYROID LOBECTOMY UNI W/WO ISTHMUSECTOMY 08/31/2007 LEFT VAGINAL HYSTERECTOMY UTERUS 250 GM/< 12/01/2009 TVH for fibroid, menorrhagia, adenomyosis ALLERGIES Prozac [Fluoxetine Hcl] MEDICATIONS oxyCODONE IR (ROXICODONE) 5 mg immediate release tablet TAKE 1 TO 2 TABLETS BY MOUTH EVERY 6 HOURS NEEDED. DO NOT EXCEED 6 TABLETS IN 24 HOURS Phentermine HCl 37.5 mg tablet once daily. furosemide (LASIX) 40 mg tablet Take 1 tablet by mouth two times a day. venlafaxine ER (EFFEXOR XR) 150 mg 24 hr capsule Take 1 capsule by mouth once daily. venlafaxine ER (EFFEXOR XR) 75 mg 24 hr capsule Take 1 capsule by mouth once daily. metFORMIN ER (FORTAMET) 500 mg 24 hr tablet Take 1 tablet by mouth daily with dinner. Take two tablets by mouth daily with dinner. levothyroxine (SYNTHROID) 75 mcg tablet Take 1 tablet by mouth daily 5 days per week. Take 1.5 tablets by mouth daily 2 days per week. Take in the morning on an empty stomach. metFORMIN ER (FORTAMET) 1,000 mg 24 hr tablet Take 1 tablet by mouth daily with dinner. Generic okay potassium chloride (K-TAB) 10 mEq tablet Take 1 tablet by mouth daily with breakfast. pantoprazole DR (PROTONIX) 40 mg tablet Take 1 tablet by mouth once daily. loratadine (CLARITIN) 10 mg tablet Take 1 tablet by mouth once daily. traZODone (DESYREL) 50 mg tablet Take 1 tablet by mouth daily at bedtime. Calcium-Cholecalciferol, D3, 600 mg-10 mcg (400 unit) cap Take 1 capsule by mouth once daily. budesonide-formoterol (SYMBICORT) 80-4.5 mcg/actuation inhaler Inhale 2 Puffs as instructed twice daily. albuterol HFA (PROVENTIL HFA, VENTOLIN HFA) 90 mcg/actuation inhaler Inhale 2 Puffs as instructed every 4 hours as needed. cholecalciferol (VITAMIN D3) 50 mcg (2,000 unit) tablet Take 1 tablet by mouth once daily. CPAP Initiate CPAP @ 10 cm of water with humidification. Mask (per patient preference) optional chin strap (if indicated) , filters, tubing, humidifier and lifetime supplies. COMPOUNDED PRESCRIPTION CPAP Supplies; hose; mask DX: SHAINA multivitamins(DAILY VITAMIN TAB) Take one(1) tablet daily. FAMILY HISTORY Problem Relation Age of Onset other (FIBROMYALGIA) Mother Lipids Father Ischemic Heart Disease Father Heart Father [place] has hole in heart Stroke Father Diabetes Father Stroke Maternal Grandmother Alzheimer's Disease Maternal Grandmother Psychiatry Maternal Grandmother DEMENTIA Breast Cancer Maternal Grandmother Diabetes Other pcousin Heart Sister Hole in heart Thyroid Sister Allergies No Family History Asthma No Family History Social History Tobacco Use Smoking status: Never Smokeless tobacco: Never Tobacco comments: No ETS in childhood or current home. Vaping Use Vaping status: Never Used Substance Use Topics Alcohol use: No Drug use: No Review of Systems Constitutional: Positive for chills, fever and malaise/fatigue. HENT: Positive for congestion and sore throat. Negative for ear discharge, ear pain and sinus pain. Eyes: Negative for blurred vision, pain, discharge and redness. Respiratory: Positive for cough. Negative for hemoptysis, sputum production, shortness of breath, wheezing and stridor. Cardiovascular: Negative for chest pain. Gastrointestinal: Negative for abdominal pain, diarrhea, nausea and vomiting. Musculoskeletal: Positive for myalgias. Skin: Negative for itching and rash. Neurological: Positive for headaches. Negative for dizziness. Objective Physical Exam Constitutional: General: She is not in acute distress. Appearance: She is not diaphoretic. HENT: Head: Normocephalic. Jaw: No trismus, tenderness, swelling or pain on movement. Nose: Congestion present. Mouth/Throat: Mouth: Mucous membranes are moist. Pharynx: Oropharynx is clear. Uvula midline. No pharyngeal swelling, oropharyngeal exudate, posterior oropharyngeal erythema or uvula swelling. Eyes: Conjunctiva/sclera: Conjunctivae normal. Pupils: Pupils are equal, round, and reactive to light. Cardiovascular: Rate and Rhythm: Normal rate and regular rhythm. Heart sounds: Normal heart sounds. Pulmonary: Effort: Pulmonary effort is normal. No tachypnea, accessory muscle usage or respiratory distress. Breath sounds: Normal breath sounds. No stridor. No wheezing, rhonchi or rales. Musculoskeletal: Cervical back: Normal range of motion and neck supple. No edema, erythema, rigidity or tenderness. No pain with movement. Normal range of motion. Lymphadenopathy: Cervical: No cervical adenopathy. Skin: General: Skin is warm and dry. Neurological: Mental Status: She is alert and oriented to person, place, and time. ASSESSMENT/PLAN: 1. Acute cough - ICD9: 786.2, ICD10: R05.1 (primary diagnosis) - XR CHEST 2V FRONTAL/LAT 2. URI with cough and congestion - ICD9: 465.9, ICD10: J06.9 IMPRESSION: No acute radiographic abnormality No acute findings noted on x-ray. Treat as viral illness. Symptoms are progressively improving. Patient was educated on supportive therapies. Patient will follow up with primary care provider as needed. Patient was instructed to immediately proceed to emergency room for any new, worsening, or symptoms lasting longer than anticipated. The patient's clinical presentation is otherwise unremarkable at this time. Based on exam and clinical finding, the patient is stable for discharge. Plan of care was discussed with patient. Patient verbalizes understanding and agrees to plan of care. This note was generated using Validus software. It may contain errors in wording, punctuation, or spelling. Seth Gan APRN.FLANGING ROLL OPERATOR documented in this encounter [facility] 02-27-2024 Telephone encounter Note Sending patient my chart message with information below. [facility] 02-27-2024 Miscellaneous Notes Sending patient my chart message with information below. Please have her get potassium rechecked when able Stanley Sweeney DO Spoke to Clinical at [facility]. Reports pt had surgery this am. More than likely this will be thrown right back to PCP to order and check repeat potassium. Do you want to place order and we can notify pt via [employer] or tomorrow since she just had surgery today. Barbara Spangler MA This would need to be low on a 2nd blood draw to consider rx for potassium. Would just increase potassium rich foods and recheck potassium 1 week after 1st lab Stanley Sweeney DO Dr Max Sotelo office [facility] calling patient pre op lab work the potassium level is low at 3.1 asking if PCP wants her to have supplementation? Please call [phone] opt 6 to get clinical person. Results are scanned in under lab tab today date in patient chart. Please advise documented in this encounter [facility] 02-27-2024 Telephone encounter Note Please have her get potassium rechecked when able Stanley Sweeney DO [facility] 02-24-2024 Telephone encounter Note Spoke to Clinical at [facility]. Reports pt had surgery this am. More than likely this will be thrown right back to PCP to order and check repeat potassium. Do you want to place order and we can notify pt via [employer] or tomorrow since she just had surgery today. Barbara Spangler MA [facility] 02-24-2024 Telephone encounter Note This would need to be low on a 2nd blood draw to consider rx for potassium. Would just increase potassium rich foods and recheck potassium 1 week after 1st lab Stanley Sweeney DO [facility] 02-21-[address] Max Sotelo office [facility] calling patient pre op lab work the potassium level is low at 3.1 asking if PCP wants her to have supplementation? Please call [phone] opt 6 to get clinical person. Results are scanned in under lab tab today date in patient chart. Please advise [facility] 02-06-2024 Telephone encounter Note Prescription Refill Information The patient has been identified by name and date of : Yes Caregiver verified no other encounters exist for this prescription request: Yes Caregiver confirmed with patient/requestor that no other refills are due, in the near future, with this provider at this time: No The last office visit in the department: 01/05/24 Does the patient have a future office visit with this provider/department: No Requested Prescriptions Pending Prescriptions Disp Refills furosemide (LASIX) 40 mg tablet 60 tablet 11 Sig: Take 1 tablet by mouth two times a day. Do Vogt MA February 06, 2024 1:46 PM [facility] 02-06-2024 Miscellaneous Notes Prescription Refill Information The patient has been identified by name and date of : Yes Caregiver verified no other encounters exist for this prescription request: Yes Caregiver confirmed with patient/requestor that no other refills are due, in the near future, with this provider at this time: No The last office visit in the department: 01/05/24 Does the patient have a future office visit with this provider/department: No Requested Prescriptions Pending Prescriptions Disp Refills furosemide (LASIX) 40 mg tablet 60 tablet 11 Sig: Take 1 tablet by mouth two times a day. Do Vogt MA February 06, 2024 1:46 PM documented in this encounter [facility] 01-11-2024 Telephone encounter Note Pt informed Sandra Aguiar MA [facility] 01-11-2024 Miscellaneous Notes Pt informed Sandra Aguiar MA Please let her know that I did receive her upper abdomen ultrasound results. It shows some fatty liver, but overall is very comprable to her previous ultrasound in June. Her liver labs actually look great, are all in normal range. Her calcium level is a bit elevated. I'd like her to have just a couple labs completed in response to this result. She can get this done when able, is not a fasting lab. No other concerns r/t her labs. Adia Robles APRN.CNP documented in this encounter [facility] 01-11-2024 Telephone encounter Note Please let her know that I did receive her upper abdomen ultrasound results. It shows some fatty liver, but overall is very comprable to her previous ultrasound in June. Her liver labs actually look great, are all in normal range. Her calcium level is a bit elevated. I'd like her to have just a couple labs completed in response to this result. She can get this done when able, is not a fasting lab. No other concerns r/t her labs. Adia Robles APRN.CNP [facility] 01-09-2024 History of Presen t illness Narrative Radiology Service Progress Note PATIENT NAME: Ronnie Katz DATE OF SERVICE: January 09, 2024 TIME: 3:03 PM PATIENT IDENTITY VERIFICATION COMPLETED USING TWO (2) IDENTIFIERS: Name and Date of confirmed by patient verbally. FALL SCREENING: Has the patient had 2 falls in the last year or 1 fall with injury or currently using an Ambulatory Assistive Device (Walker, Cane, Wheelchair, Crutches, etc.)? No PATIENT GENDER DATA: Female. status: : No status: NO. PATIENT RELEVANT IMPLANT DATA REVIEWED: Not Applicable PATIENT PRESENTS WITH AN IMPLANTABLE OR ATTACHED CO TEACHER: No RADIOLOGY DEPARTMENT: Ultrasound PERIPHERAL IV DATA: Not applicable SIGNED BY: Cristel De Anda RDMS January 09, 2024 3:03 PM documented in this encounter [facility] 01-05-2024 Instructions Adia Robles APRN.CNP - 01/05/2024 2:18 PM EDT Schedule your mammogram. Schedule your ultrasound of your upper abdomen. Talk with Worker's Comp about your knee. Let me know if there is anything I can do from my standpoint. I would recommend some PT and seeing an orthopedic doctor. documented in this encounter [facility] 01-05-2024 History of Presen t illness Narrative Chief Complaint Patient presents with: Physical Knee Pain: R knee x1 week Abdominal Pain: RUQ x 2 weeks, gallbladder removed JAN 2023, HPI Ronnie Katz is a 53 year old female who presents here today for Above Complaints.. Here for her yearly physical. Denies CP, SOB, new or persistent h/a, difficulty swallowing, palpitations, increased thirst or urination. Right knee pain-in July was put on Workman's Comp-stepped backwards and tore her meniscus. Did PT and this helped. Lately has been getting very tender again. Is hurting on the lateral area and behind her knee a bit. Hasn't taken anything for pain. Is worse after work-is on her feet all day at work on a concrete floor. Gets stiff and tender by the end of the day. Heat made it worse. Feels like a creaky door when she moves it. RUQ abdominal pain-gets RUQ pains, not necessarily any rhyme or reason. Is sharp and aching, lasts for a few minutes at a time. Wondering if it could be because of her liver. Had her gallbladder removed in June 2023. Past medical history, appointments, medications, allergies reviewed. Previous Medical History PAST MEDICAL HISTORY Diagnosis Date Diastasis of rectus abdominis 12/11/2015 Dysthymic disorder Depression (non-psychotic) Environmental allergies Spring worse. Gallstones Genital herpes, unspecified 01/09/2007 HSV (herpes simplex virus) anogenital infection 1990 Hypercholesteremia 05/2015 Leukocytoclastic vasculitis (HCC) 2012 dx by lAiyah Wallace Onychomycosis SHAINA (obstructive sleep apnea) 04/13/2017 Persistent asthma without complication 06/12/2018 + JADA 06/2018, chronic cough, abnormal RAST. Previous Surgical History PAST SURGICAL HISTORY Procedure Laterality Date APPENDECTOMY CARPAL TUNNEL 2017 CARPAL TUNNEL Right 2018 CHOLECYSTECTOMY HX 07/05/2023 LIVER BIOPSY 07/05/2023 NEUROPLASTY &/TRANSPOS MEDIAN NRV CARPAL TUNNE Right 09/13/2016 THYROID LEFT FINE NEEDLE ASPIRATION 08/02/2007 U/ S FNA left thyroid nodule TOTAL THYROID LOBECTOMY UNI W/WO ISTHMUSECTOMY 08/31/2007 LEFT VAGINAL HYSTERECTOMY UTERUS 250 GM/< 12/01/2009 TVH for fibroid, menorrhagia, adenomyosis Family History FAMILY HISTORY Problem Relation Age of Onset other (FIBROMYALGIA) Mother Lipids Father Ischemic Heart Disease Father Heart Father GA has hole in heart Stroke Father Diabetes Father Stroke Maternal Grandmother Alzheimer's Disease Maternal Grandmother Psychiatry Maternal Grandmother DEMENTIA Breast Cancer Maternal Grandmother Diabetes Other pcousin Heart Sister Hole in heart Thyroid Sister Allergies No Family History Asthma No Family History Patient Allergies ALLERGIES Allergen Reactions Prozac [Fluoxetine * Other: See Comments Aggressive behavior, emotional Current Medications Current Outpatient Medications on File Prior to Visit Medication Sig venlafaxine ER (EFFEXOR XR) 150 mg 24 hr capsule Take 1 capsule by mouth once daily. venlafaxine ER (EFFEXOR XR) 75 mg 24 hr capsule Take 1 capsule by mouth once daily. metFORMIN ER (FORTAMET) 500 mg 24 hr tablet Take 1 tablet by mouth daily with dinner. Take two tablets by mouth daily with dinner. levothyroxine (SYNTHROID) 75 mcg tablet Take 1 tablet by mouth daily 5 days per week. Take 1.5 tablets by mouth daily 2 days per week. Take in the morning on an empty stomach. metFORMIN ER (FORTAMET) 1,000 mg 24 hr tablet Take 1 tablet by mouth daily with dinner. Generic okay potassium chloride (K-TAB) 10 mEq tablet Take 1 tablet by mouth daily with breakfast. pantoprazole DR (PROTONIX) 40 mg tablet Take 1 tablet by mouth once daily. loratadine (CLARITIN) 10 mg tablet Take 1 tablet by mouth once daily. furosemide (LASIX) 40 mg tablet Take 1 tablet by mouth two times a day. traZODone (DESYREL) 50 mg tablet Take 1 tablet by mouth daily at bedtime. Calcium-Cholecalciferol, D3, 600 mg-10 mcg (400 unit) cap Take 1 capsule by mouth once daily. albuterol HFA (PROVENTIL HFA, VENTOLIN HFA) 90 mcg/actuation inhaler Inhale 2 Puffs as instructed every 4 hours as needed. cholecalciferol (VITAMIN D3) 50 mcg (2,000 unit) tablet Take 1 tablet by mouth once daily. CPAP Initiate CPAP @ 10 cm of water with humidification. Mask (per patient preference) optional chin strap (if indicated) , filters, tubing, humidifier and lifetime supplies. COMPOUNDED PRESCRIPTION CPAP Supplies; hose; mask DX: SHAINA multivitamins(DAILY VITAMIN TAB) Take one(1) tablet daily. budesonide-formoterol (SYMBICORT) 80-4.5 mcg/actuation inhaler Inhale 2 Puffs as instructed twice daily. No current facility-administered medications on file prior to visit. Social History Social History Tobacco Use Smoking status: Never Smokeless tobacco: Never Tobacco comments: No ETS in childhood or current home. Vaping Use Vaping status: Never Used Substance Use Topics Alcohol use: No Drug use: No Review of Symptoms REVIEW OF SYSTEMS See HPI, otherwise negative EXAM: BP 110/72 (BP Site: Left Arm, BP Position: Sitting, BP Cuff Size: Regular Adult) Pulse 92 Ht 162 cm (5' 3.78) Wt 109.6 kg (241 lb 10 oz) LMP 11/16/2009 SpO2 95% BMI 41.76 kg/m General Appearance: Well appearing, alert, in no acute distress, well-hydrated, well nourished. and Morbidly obese. Skin: Skin color, texture, turgor normal, no suspicious rashes or lesions. Head: Normocephalic, no masses, lesions, tenderness or abnormalities. Eyes: Anicteric sclera. Pupils are equally round and reactive to light. Extraocular movements are intact. . Ears: External ears normal, canals clear. Nose/Sinuses: Nares normal, septum midline, mucosa normal, no drainage or sinus tenderness. Oropharynx: Lips, mucosa, and tongue normal, teeth and gums normal, oropharynx normal. Neck: Supple, no adenopathy; thyroid symmetric, normal size, no bruits. Back:no pain to palpation of vertebrae, good flexion and extension, good range of motion, no muscle tenderness, motor and sensory appear to be normal Lungs: Lungs clear to auscultation. No wheezing, rhonchi, rales.. Heart: RRR without murmur, gallop, or rubs. No ectopy. Abdomen: Normal abdominal exam, Abdomen soft, non-tender. Bowel sounds normal. No masses, organomegaly. Extremities: No deformities, edema, skin discoloration, clubbing or cyanosis. Good capillary refill. . Musculoskeletal: No joint swelling, deformity, or tenderness. Peripheral Pulses: Normal. Neurologic: Gait normal. Reflexes normal and symmetric. Sensation grossly intact.. Lymph Nodes: No cervical lymphadenopathy and No supraclavicular lymphadenopathy. Psychiatric: pleasant, cooperative. Health Maintenance List Covid-19 Vaccine(2023- season) Never done Influenza Vaccine(1) due on 12/11/2023 Colorectal Cancer Screening due on 02/26/2024 Mammogram Screening due on 06/21/2024 Hepatitis B Vaccine(1 of 3 - 19+ 3-dose series) due on 04/07/2024 Shingrix Vaccine(1 of 2) due on 04/07/2024 Annual PCP Team Chronic Disease Visit due on 09/18/2024 DTaP,Tdap,Td Vaccine(2 - Td or Tdap) due on 01/16/2025 Diabetes Screening due on 07/17/2026 Lipid Screening due on 01/30/2028 Spirometry Completed Hepatitis C Screening Completed HIV Screening Completed Cervical Cancer Screening Discontinued Data reviewed Previous records, office notes ASSESSMENT/PLAN: 1. Class 3 severe obesity with body mass index (BMI) of 40.0 to 44.9 in adult, unspecified obesity type, unspecified whether serious comorbidity present (HCC) - ICD9: 278.01, V85.41, ICD10: E66.813, E66.01, Z68.41 (primary diagnosis) - THYROID STIMULATING HORMONE - T4 FREE/FREE THYROXINE 2. Well adult exam - ICD9: V70.0, ICD10: Z00.00 - Counseled on healthy diet and regular exercise - Follow up for annual exam in one year - JARETH SCREENING W JEFE - COMPLETE BLOOD COUNT - COMPREHENSIVE METABOLIC PANEL - LIPID PANEL BASIC - HEMOGLOBIN A1C - THYROID STIMULATING HORMONE - T4 FREE/FREE THYROXINE 3. 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 Elevated LFTs - ICD9: 790.6, ICD10: R79.89 - COMPREHENSIVE METABOLIC PANEL 6. Vitamin D insufficiency - ICD9: 268.9, ICD10: E55.9 - VITAMIN D 25 HYDROXY 7. Mixed hyperlipidemia - ICD9: 272.2, ICD10: E78.2 - LIPID PANEL BASIC 8. Screening for diabetes mellitus - ICD9: V77.1, ICD10: Z13.1 - COMPLETE BLOOD COUNT - COMPREHENSIVE METABOLIC PANEL - HEMOGLOBIN A1C 9. RUQ pain - ICD9: 789.01, ICD10: R10.11 - US ABD RIGHT UPPER QUADRANT 10. Hepatic steatosis - ICD9: 571.8, ICD10: K76.0 - US ABD RIGHT UPPER QUADRANT 11. Encounter for immunization - ICD9: V03.89, ICD10: Z23 - INFLUENZA VACCINE, AGE 6MO-64YR, TRIVALENT (AFLURIA, FLULAVAL, FLUVIRIN, FLUZONE) 12. 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 12-13-2023 Telephone encounter Note Patient has been identified by name and date of : Patient phones for refill(s): Requested Prescriptions Pending Prescriptions Disp Refills venlafaxine ER (EFFEXOR XR) 150 mg 24 hr capsule 90 capsule 1 Sig: Take 1 capsule by mouth once daily. venlafaxine ER (EFFEXOR XR) 75 mg 24 hr capsule 90 capsule 1 Sig: Take 1 capsule by mouth once daily. Date of last office visit in primary care: 09/19/2023 Date of next office visit in primary care: 12/20/2023 Please advise. Thank you. Odette Calvo LPN. [facility] 12-13-2023 Miscellaneous Notes Patient has been identified by name and date of : Patient phones for refill(s): Requested Prescriptions Pending Prescriptions Disp Refills venlafaxine ER (EFFEXOR XR) 150 mg 24 hr capsule 90 capsule 1 Sig: Take 1 capsule by mouth once daily. venlafaxine ER (EFFEXOR XR) 75 mg 24 hr capsule 90 capsule 1 Sig: Take 1 capsule by mouth once daily. Date of last office visit in primary care: 09/19/2023 Date of next office visit in primary care: 12/20/2023 Please advise. Thank you. Odette Calvo LPN. documented in this encounter [facility] 10-24-2023 Telephone encounter Note Call placed to patient and message left on identified voicemail with provider message as below. Phone number left for patient for any further questions. Shawna Mason RN [facility] 10-24-2023 Miscellaneous Notes Call placed to patient and message left on identified voicemail with provider message as below. Phone number left for patient for any further questions. Shawna Msaon RN Yes, I think she could try PHYSICAL THERAPY, as long as this is the recommendation by orthopedics as well Stanley Sweeney DO Patient calls to check on request. Results link below: Scan on 09/29/2023 3:52 PM by Provider, TRINI Diallo: Consultation - Orthopedics Initial request: Patient calls to ask if provider has received MRI results of Right Knee from [facility]. She reports Dr. Sweeney was going to review and let her know if she felt PT was appropriate or if she needed to proceed with surgery. Patient requests call back at [phone]. Please review and advise. Shawna Mason RN Nothing received at this time Sandra Aguiar MA Patient calling to check the status of this request. Please advise patient when received. Sent a request asking for MRI results. Will forward to Patel when received. Sandra Aguiar MA Patient calls to ask if provider has received MRI results of Right Knee from [facility]. She reports Dr. Sweeney was going to review and let her know if she felt PT was appropriate or if she needed to proceed with surgery. Patient requests call back at [phone]. Shawna Mason RN documented in this encounter [facility] 10-24-2023 Telephone encounter Note Yes, I think she could try PHYSICAL THERAPY, as long as this is the recommendation by orthopedics as well Stanley Sweeney DO [facility] 10-06-2023 Telephone encounter Note Patient calls to check on request. Results link below: Scan on 09/29/2023 3:52 PM by Provider, External, PADomoniqueC: Consultation - Orthopedics Initial request: Patient calls to ask if provider has received MRI results of Right Knee from [facility]. She reports Dr. Sweeney was going to review and let her know if she felt PT was appropriate or if she needed to proceed with surgery. Patient requests call back at [phone]. Please review and advise. Shawna Mason RN [facility] 09-29-2023 Telephone encounter Note Nothing received at this time Sandra Aguiar MA [facility] 09-29-2023 Telephone encounter Note Patient calling to check the status of this request. Please advise patient when received. [facility] 09-28-2023 Telephone encounter Note Sent a request asking for MRI results. Will forward to Patel when received. Sandra Aguiar MA [facility] 09-28-2023 Telephone encounter Note Patient calls to ask if provider has received MRI results of Right Knee from [facility]. She reports Dr. Sweeney was going to review and let her know if she felt PT was appropriate or if she needed to proceed with surgery. Patient requests call back at [phone]. Shawna Mason RN [facility] 09-20-2023 Telephone encounter Note TC to pharmacy who states they received verbal okay for this yesterday. Nothing further is needed. NOEL Olmos [facility] 09-20-2023 Miscellaneous Notes TC to pharmacy who states they received verbal okay for this yesterday. Nothing further is needed. NOEL Olmos The following approved medication requests have been transmitted electronically. Requested Prescriptions Signed Prescriptions Disp Refills metFORMIN ER (FORTAMET) 500 mg 24 hr tablet 180 tablet 1 Sig: Take 1 tablet by mouth daily with dinner. Take two tablets by mouth daily with dinner. Authorizing Provider: STANLEY SWEENEY DO [facility] calling to let provider know Metformin 1000 mg is not covered by patient's insurance. If okay with provider, they will dispense Metformin 500 mg for patient to take two tablets with dinner. If agree, pended. Tequila Rosen RN documented in this encounter [facility] 09-20-2023 Telephone encounter Note The following approved medication requests have been transmitted electronically. Requested Prescriptions Signed Prescriptions Disp Refills metFORMIN ER (FORTAMET) 500 mg 24 hr tablet 180 tablet 1 Sig: Take 1 tablet by mouth daily with dinner. Take two tablets by mouth daily with dinner. Authorizing Provider: STANLEY SWEENEY DO [facility] 09-19-2023 History of Presen t illness Narrative CC: Ronnie Katz is a 52 year old female who presents to the office for follow up HPI: Previously 1 month ago on 08/16/2023 Injured her knee on 07/28, was seen at the EMERGENCY DEPARTMENT, was told to limit her hours of work to 4 hours at a time. She states that her work won't accommodate this so she has been off work. She is seeing orthopedics for further evaluation since her right knee is still bothering her. She is trying to use a brace on it, ice on knee and take NSAIDs Mood, she has had a lot of stressors recently with loss of her home. She and her are now living with their dogs, in their friend's basement. Now recently found to have lost all her belongings from their storage unit- she states that they weren't notified that this was going to happen and it was all her personal sentimental belonging such as her children's handmade ornaments and flag from father in laws etc. No SI or HI but feels she cries all he time and not finding much happiness right now. She is taking effexor at this time Obesity, knows need for weight loss. She states that she knows she needs to work on this to help her knee symptoms as well as her self confidence which is struggling. She is interested in starting on weight loss medication and wants to get back into more regular exercise. Currently Obesity, she was started on adipex and metformin. She is tolerating both medications well. She has lost 5 lbs in 1 month. She is now 255 lbs, was 260 lbs. She is interested in continuing these medications. She has cut back on sugars in her diet and eliminated soda from her diet. Mood, improving. She is back to work Right knee pain and injury, this is part of a workman's compensation case with Dr. Max Sotelo at [facility]. Had MRI and potentially will have surgery upcoming PAST MEDICAL HISTORY Diagnosis Date Diastasis of rectus abdominis 12/11/2015 Dysthymic disorder Depression (non-psychotic) Environmental allergies spring. Gallstones Genital herpes, unspecified 01/09/2007 HSV (herpes simplex virus) anogenital infection 1990 Hypercholesteremia 05/2015 Leukocytoclastic vasculitis (HCC) 2012 dx by Aliyah Wallace Onychomycosis SHAINA (obstructive sleep apnea) 04/13/2017 Persistent asthma without complication 06/12/2018 + JADA 06/2018, chronic cough, abnormal RAST. PAST SURGICAL HISTORY Procedure Laterality Date APPENDECTOMY CARPAL TUNNEL 2017 CARPAL TUNNEL Right 2018 CHOLECYSTECTOMY HX 07/05/2023 LIVER BIOPSY 07/05/2023 NEUROPLASTY &/TRANSPOS MEDIAN NRV CARPAL TUNNE Right 09/13/2016 THYROID LEFT FINE NEEDLE ASPIRATION 08/02/2007 U/ S FNA left thyroid nodule TOTAL THYROID LOBECTOMY UNI W/WO ISTHMUSECTOMY 08/31/2007 LEFT VAGINAL HYSTERECTOMY UTERUS 250 GM/< 12/01/2009 TVH for fibroid, menorrhagia, adenomyosis Current Outpatient Medications Medication Sig levothyroxine (SYNTHROID) 75 mcg tablet Take 1 tablet by mouth daily 5 days per week. Take 1.5 tablets by mouth daily 2 days per week. Take in the morning on an empty stomach. Phentermine HCl (ADIPEX-P) 37.5 mg tablet Take 1 tablet by mouth once daily for 30 days. BMI 44.46 metFORMIN ER (FORTAMET) 1,000 mg 24 hr tablet Take 1 tablet by mouth daily with dinner. Generic okay potassium chloride (K-TAB) 10 mEq tablet Take 1 tablet by mouth daily with breakfast. pantoprazole DR (PROTONIX) 40 mg tablet Take 1 tablet by mouth once daily. loratadine (CLARITIN) 10 mg tablet Take 1 tablet by mouth once daily. furosemide (LASIX) 40 mg tablet Take 1 tablet by mouth two times a day. venlafaxine ER (EFFEXOR XR) 150 mg 24 hr capsule Take 1 capsule by mouth once daily. venlafaxine ER (EFFEXOR XR) 75 mg 24 hr capsule Take 1 capsule by mouth once daily. traZODone (DESYREL) 50 mg tablet Take 1 tablet by mouth daily at bedtime. Calcium-Cholecalciferol, D3, 600 mg-10 mcg (400 unit) cap Take 1 capsule by mouth once daily. budesonide-formoterol (SYMBICORT) 80-4.5 mcg/actuation inhaler Inhale 2 Puffs as instructed twice daily. albuterol HFA (PROVENTIL HFA, VENTOLIN HFA) 90 mcg/actuation inhaler Inhale 2 Puffs as instructed every 4 hours as needed. cholecalciferol (VITAMIN D3) 50 mcg (2,000 unit) tablet Take 1 tablet by mouth once daily. CPAP Initiate CPAP @ 10 cm of water with humidification. Mask (per patient preference) optional chin strap (if indicated) , filters, tubing, humidifier and lifetime supplies. COMPOUNDED PRESCRIPTION CPAP Supplies; hose; mask DX: SHAINA multivitamins(DAILY VITAMIN TAB) Take one(1) tablet daily. Current Facility-Administered Medications Medication Dose Route Frequency perflutren lipid microspheres 1.3 mL in NaCl (PF) 0.9% 10 mL injection (DEFINITY) INTRAVENOUS DIRECTED PRN sodium chloride 0.9 % (flush) 10 mL (BD POSIFLUSH) 10 mL INTRAVENOUS DIRECTED PRN ALLERGIES Allergen Reactions Prozac [Fluoxetine * Other: See Comments Aggressive behavior, emotional Social History Tobacco Use Smoking status: Never Smokeless tobacco: Never Tobacco comments: No ETS in childhood or current home. Vaping Use Vaping Use: Never used Substance Use Topics Alcohol use: No Drug use: No ROS: See HPI PE: BP 120/80 Pulse 80 Temp (Src) 97.9 (Left Tympanic) Resp 16 Wt 255 lb (115.7kg) LMP 11/16/2009 Gen: A&OX3, NAD, non-toxic appearing HEENT: PERRLA, EOMs intact b/l, nares without drainage, pharynx without erythema, exudate, lesions, or drainage. Uvula midline. Neck: No LAD, no thyromegaly, no meningismus. CV: RRR, no murmur Lungs: CTA b/l, no wheezing Skin: No rashes, lesions, or wounds on exposed skin. Walking with crutch No edema lower legs, normal peripheral pulses Central obesity ASSESSMENT/PLAN: 1. Mixed hyperlipidemia - ICD9: 272.2, ICD10: E78.2 (primary diagnosis) - Uncontrolled - Counseled on healthy diet and regular exercise - Discussed need for and benefit of weight loss. BMI 43.77 kg/(m^2) 2. Class 3 severe obesity with body mass index (BMI) of 40.0 to 44.9 in adult, unspecified obesity type, unspecified whether serious comorbidity present (HCC) - ICD9: 278.01, V85.41, ICD10: E66.01, Z68.41 Weight decreasing - Behavioral intervention, - Pharmacological intervention, - Continue current medications, and - Increase Metformin - PHENTERMINE 37.5 MG TABLET - METFORMIN ER 1,000 MG TABLET,EXTENDED RELEASE 24HR (OSMOTIC) 3. Gastroesophageal reflux disease without esophagitis - ICD9: 530.81, ICD10: K21.9 - Discussed lifestyle modifications including losing weight, limiting caffeine, no meals three hours before sleep, and head of bed elevation 4. Anxiety with depression - ICD9: 300.4, ICD10: F41.8 improving 5. Hepatic steatosis - ICD9: 571.8, ICD10: K76.0 Need for dietary changes, exercise and weight loss as above Stanley Sweeney DO Return if no improvement. Follow up with Stanley Sweeney DO. To ER if develops chest pain, shortness of breath. Discussed risks, benefits, alternatives, and potential side effects of medications. Patient/Guardian expressed understanding and agreed with the plan. See patient instructions. Stanley Sweeney DO [address] [place] [address] documented in this encounter [facility] 09-19-2023 Telephone encounter Note [facility] calling to let provider know Metformin 1000 mg is not covered by patient's insurance. If okay with provider, they will dispense Metformin 500 mg for patient to take two tablets with dinner. If agree, pended. Tequila Rosen, RN [facility] 09-12-2023 Telephone encounter Note Patient has been identified by name and date of : Yes Patient phones for refill(s): Requested Prescriptions Pending Prescriptions Disp Refills pantoprazole DR (PROTONIX) 40 mg tablet 30 tablet 5 Sig: Take 1 tablet by mouth once daily. Date of last office visit in primary care: 08/16/2023 Date of next office visit in primary care: 09/19/2023 Please advise. Thank you. Ashley Yancey MA. [facility] 09-12-2023 Miscellaneous Notes Patient has been identified by name and date of : Yes Patient phones for refill(s): Requested Prescriptions Pending Prescriptions Disp Refills pantoprazole DR (PROTONIX) 40 mg tablet 30 tablet 5 Sig: Take 1 tablet by mouth once daily. Date of last office visit in primary care: 08/16/2023 Date of next office visit in primary care: 09/19/2023 Please advise. Thank you. Ashley Yancey MA. documented in this encounter [facility] 08-16-2023 History of Presen t illness Narrative PHQ-9 Score: 7 (Mild Depression) PAOLA-7 Score: 7 (Mild Anxiety) Continuing current treatment plan and Counseling CC: Ronnie Katz is a 52 year old female who presents to the office for follow up HPI: Injured her knee on 07/28, was seen at the EMERGENCY DEPARTMENT, was told to limit her hours of work to 4 hours at a time. She states that her work won't accommodate this so she has been off work. She is seeing orthopedics for further evaluation since her right knee is still bothering her. She is trying to use a brace on it, ice on knee and take NSAIDs Mood, she has had a lot of stressors recently with loss of her home. She and her are now living with their dogs, in their friend's basement. Now recently found to have lost all her belongings from their storage unit- she states that they weren't notified that this was going to happen and it was all her personal sentimental belonging such as her children's handmade ornaments and flag from father in laws etc. No SI or HI but feels she cries all he time and not finding much happiness right now. She is taking effexor at this time Obesity, knows need for weight loss. She states that she knows she needs to work on this to help her knee symptoms as well as her self confidence which is struggling. She is interested in starting on weight loss medication and wants to get back into more regular exercise. PAST MEDICAL HISTORY Diagnosis Date Diastasis of rectus abdominis 12/11/2015 Dysthymic disorder Depression (non-psychotic) Environmental allergies Spring worse. Gallstones Genital herpes, unspecified 01/09/2007 HSV (herpes simplex virus) anogenital infection 1990 Hypercholesteremia 05/2015 Leukocytoclastic vasculitis (HCC) 2012 dx by Aliyah Wallace Onychomycosis SHAINA (obstructive sleep apnea) 04/13/2017 Persistent asthma without complication 06/12/2018 + JADA 06/2018, chronic cough, abnormal RAST. PAST SURGICAL HISTORY Procedure Laterality Date APPENDECTOMY CARPAL TUNNEL 2017 CARPAL TUNNEL Right 2018 CHOLECYSTECTOMY HX 07/05/2023 LIVER BIOPSY 07/05/2023 NEUROPLASTY &/TRANSPOS MEDIAN NRV CARPAL TUNNE Right 09/13/2016 THYROID LEFT FINE NEEDLE ASPIRATION 08/02/2007 U/ S FNA left thyroid nodule TOTAL THYROID LOBECTOMY UNI W/WO ISTHMUSECTOMY 08/31/2007 LEFT VAGINAL HYSTERECTOMY UTERUS 250 GM/< 12/01/2009 TVH for fibroid, menorrhagia, adenomyosis Current Outpatient Medications Medication Sig loratadine (CLARITIN) 10 mg tablet Take 1 tablet by mouth once daily. furosemide (LASIX) 40 mg tablet Take 1 tablet by mouth two times a day. Phentermine HCl (ADIPEX-P) 37.5 mg tablet Take 1 tablet by mouth once daily for 30 days. BMI 44.46 metFORMIN ER (FORTAMET) 500 mg 24 hr tablet Take 1 tablet by mouth daily with dinner. Generic okay venlafaxine ER (EFFEXOR XR) 150 mg 24 hr capsule Take 1 capsule by mouth once daily. venlafaxine ER (EFFEXOR XR) 75 mg 24 hr capsule Take 1 capsule by mouth once daily. levothyroxine (SYNTHROID) 75 mcg tablet Take 1 tablet by mouth daily 5 days per week. Take 1.5 tablets by mouth daily 2 days per week. Take in the morning on an empty stomach. traZODone (DESYREL) 50 mg tablet Take 1 tablet by mouth daily at bedtime. Calcium-Cholecalciferol, D3, 600 mg-10 mcg (400 unit) cap Take 1 capsule by mouth once daily. pantoprazole DR (PROTONIX) 40 mg tablet Take 1 tablet by mouth once daily. potassium chloride (K-TAB) 10 mEq tablet Take 1 tablet by mouth daily with breakfast. budesonide-formoterol (SYMBICORT) 80-4.5 mcg/actuation inhaler Inhale 2 Puffs as instructed twice daily. albuterol HFA (PROVENTIL HFA, VENTOLIN HFA) 90 mcg/actuation inhaler Inhale 2 Puffs as instructed every 4 hours as needed. cholecalciferol (VITAMIN D3) 50 mcg (2,000 unit) tablet Take 1 tablet by mouth once daily. CPAP Initiate CPAP @ 10 cm of water with humidification. Mask (per patient preference) optional chin strap (if indicated) , filters, tubing, humidifier and lifetime supplies. COMPOUNDED PRESCRIPTION CPAP Supplies; hose; mask DX: SHAINA multivitamins(DAILY VITAMIN TAB) Take one(1) tablet daily. Current Facility-Administered Medications Medication Dose Route Frequency perflutren lipid microspheres 1.3 mL in NaCl (PF) 0.9% 10 mL injection (DEFINITY) INTRAVENOUS DIRECTED PRN sodium chloride 0.9 % (flush) 10 mL (BD POSIFLUSH) 10 mL INTRAVENOUS DIRECTED PRN ALLERGIES Allergen Reactions Prozac [Fluoxetine * Other: See Comments Aggressive behavior, emotional Social History Tobacco Use Smoking status: Never Smokeless tobacco: Never Tobacco comments: No ETS in childhood or current home. Vaping Use Vaping Use: Never used Substance Use Topics Alcohol use: No Drug use: No ROS: See HPI PE: BP 110/60 Pulse 80 Temp (Src) 97.5 (Right Tympanic) Resp 20 Wt 259 lb (117.5kg) LMP 11/16/2009 Gen: A&OX3, appears sullen, crying in office, fatigued appearing HEENT: PERRLA, EOMs intact b/l, nares without drainage, pharynx without erythema, exudate, lesions, or drainage. Uvula midline. MMM Neck: No LAD, no thyromegaly, no meningismus. CV: RRR, no murmur Lungs: CTA b/l, no wheezing Skin: No rashes, lesions, or wounds on exposed skin. Central obesity B/l non pitting leg edema 1+ Gait antalgic Normal pulses ASSESSMENT/PLAN: 1. Class 3 severe obesity with body mass index (BMI) of 40.0 to 44.9 in adult, unspecified obesity type, unspecified whether serious comorbidity present (HCC) - ICD9: 278.01, V85.41, ICD10: E66.01, Z68.41 (primary diagnosis) Weight increasing - Behavioral intervention and - Pharmacological intervention - PHENTERMINE 37.5 MG TABLET - METFORMIN ER 500 MG TABLET,EXTENDED RELEASE 24HR (OSMOTIC) 2. Swelling of both hands - ICD9: 729.81, ICD10: M79.89 rx prn as below - FUROSEMIDE 40 MG TABLET - FUROSEMIDE 40 MG TABLET 3. Leg swelling - ICD9: 729.81, ICD10: M79.89 rx prn as below Needs to limit salt in diet Needs to start use of compression stockings and elevation of legs as able - FUROSEMIDE 40 MG TABLET - FUROSEMIDE 40 MG TABLET 4. Mild persistent asthma without complication - ICD9: 493.90, ICD10: J45.30 - Mild intermittent asthma stable - Continue current medications - Avoidance of triggers recommended - LORATADINE 10 MG TABLET 5. Anxiety with depression - ICD9: 300.4, ICD10: F41.8 Continue effexor Consider changing effexor to Cymbalta at follow up Need for therapy/counseling 6. Acute pain of right knee - ICD9: 719.46, ICD10: M25.561 F/u with orthopedics for care Stanley Sweeney DO Return if no improvement. Follow up with Stanley Sweeney DO. To ER if develops chest pain, shortness of breath. Discussed risks, benefits, alternatives, and potential side effects of medications. Patient/Guardian expressed understanding and agreed with the plan. See patient instructions. Stanley Sweeney DO [address] [place] [address] documented in this encounter [facility] 07-20-2023 Note HNO ID: [id number] Author: GINNA AGARWAL MD Service: ? Author Type: Physician Type: Progress Notes Filed: 07/20/2023 09:31 Note Text: SURGICAL SERVICES HISTORY AND PHYSICAL EXAMINATION SERVICE DATE: 07/20/2023 SERVICE TIME: 9:16 AM PRIMARY CARE PHYSICIAN: Stanley Sweeney DO SUBJECTIVE CHIEF COMPLAINT: follow up after surgery HISTORY OF PRESENT ILLNESS: Ms. Katz is a 52 year old female with a PMH of diastasis rectus, depression, advanced hepatic fibrosis, asthma (inhaler rare and PRN), HLD, obesity (BMI 44), SHAINA (CPAP) presents for follow up after cholecystectomy on 07/05/23. The patient reports no issues since surgery aside from one of the small 5-mm incisions that has opened up slightly. She denies nausea, emesis, diarrhea, constipation, or any other issues. She is tolerating a normal diet without issue. Pathology: A. Gallbladder, cholecystectomy: - Cholelithiasis and cholesterolosis. B. Liver, wedge biopsy: - Mild steatosis. See comment PAST MEDICAL HISTORY: PAST MEDICAL HISTORY Diagnosis Date Diastasis of rectus abdominis 12/11/2015 Dysthymic disorder Depression (non-psychotic) Environmental allergies Spring worse. Gallstones Genital herpes, unspecified 01/09/2007 HSV (herpes simplex virus) anogenital infection 1990 Hypercholesteremia 05/2015 Leukocytoclastic vasculitis (HCC) 2012 dx by Aliyah Wallace Onychomycosis SHAINA (obstructive sleep apnea) 04/13/2017 Persistent asthma without complication 06/12/2018 + JADA 06/2018, chronic cough, abnormal RAST. PAST SURGICAL HISTORY: PAST SURGICAL HISTORY Procedure Laterality Date APPENDECTOMY CARPAL TUNNEL 2017 CARPAL TUNNEL Right 2018 CHOLECYSTECTOMY HX 07/05/2023 LIVER BIOPSY 07/05/2023 NEUROPLASTY AND/TRANSPOS MEDIAN NRV CARPAL TUNNE Right 09/13/2016 THYROID LEFT FINE NEEDLE ASPIRATION 08/02/2007 U/ S FNA left thyroid nodule TOTAL THYROID LOBECTOMY UNI W/WO ISTHMUSECTOMY 08/31/2007 LEFT VAGINAL HYSTERECTOMY UTERUS 250 GM/< 12/01/2009 TVH for fibroid, menorrhagia, adenomyosis FAMILY HISTORY: FAMILY HISTORY Problem Relation Age of Onset other (FIBROMYALGIA) Mother Lipids Father Ischemic Heart Disease Father Heart Father [place] has hole in heart Stroke Father Diabetes Father Stroke Maternal Grandmother Alzheimer's Disease Maternal Grandmother Psychiatry Maternal Grandmother DEMENTIA Breast Cancer Maternal Grandmother Diabetes Other pcousin Heart Sister Hole in heart Thyroid Sister Allergies No Family History Asthma No Family History SOCIAL HISTORY: Social History Tobacco Use Smoking status: Never Smokeless tobacco: Never Tobacco comments: No ETS in childhood or current home. Vaping Use Vaping Use: Never used Substance Use Topics Alcohol use: No Drug use: No MEDICATIONS: Current Outpatient Medications Medication Sig venlafaxine ER (EFFEXOR XR) 150 mg 24 hr capsule Take 1 capsule by mouth once daily. venlafaxine ER (EFFEXOR XR) 75 mg 24 hr capsule Take 1 capsule by mouth once daily. levothyroxine (SYNTHROID) 75 mcg tablet Take 1 tablet by mouth daily 5 days per week. Take 1.5 tablets by mouth daily 2 days per week. Take in the morning on an empty stomach. traZODone (DESYREL) 50 mg tablet Take 1 tablet by mouth daily at bedtime. furosemide (LASIX) 40 mg tablet Take 1 tablet by mouth twice daily Calcium-Cholecalciferol, D3, 600 mg-10 mcg (400 unit) cap Take 1 capsule by mouth once daily. pantoprazole DR (PROTONIX) 40 mg tablet Take 1 tablet by mouth once daily. potassium chloride (K-TAB) 10 mEq tablet Take 1 tablet by mouth daily with breakfast. albuterol HFA (PROVENTIL HFA, VENTOLIN HFA) 90 mcg/actuation inhaler Inhale 2 Puffs as instructed every 4 hours as needed. cholecalciferol (VITAMIN D3) 50 mcg (2,000 unit) tablet Take 1 tablet by mouth once daily. loratadine (CLARITIN) 10 mg tablet Take 1 tablet by mouth once daily. CPAP Initiate CPAP @ 10 cm of water with humidification. Mask (per patient preference) optional chin strap (if indicated) , filters, tubing, humidifier and lifetime supplies. COMPOUNDED PRESCRIPTION CPAP Supplies; hose; mask DX: SHAINA multivitamins(DAILY VITAMIN TAB) Take one(1) tablet daily. budesonide-formoterol (SYMBICORT) 80-4.5 mcg/actuation inhaler Inhale 2 Puffs as instructed twice daily. Current Facility-Administered Medications Medication Dose Route Frequency perflutren lipid microspheres 1.3 mL in NaCl (PF) 0.9% 10 mL injection (DEFINITY) INTRAVENOUS DIRECTED PRN sodium chloride 0.9 % (flush) 10 mL (BD POSIFLUSH) 10 mL INTRAVENOUS DIRECTED PRN ALLERGIES: ALLERGIES Allergen Reactions Prozac [Fluoxetine * Other: See Comments Aggressive behavior, emotional COMPLETE REVIEW OF SYSTEMS: Review of Systems All other systems reviewed and are negative. OBJECTIVE PHYSICAL EXAM: BP 130/73 Pulse 96 Ht 5' 4 (1.63m) Wt 258 lb (117.0kg) LMP 11/16/2009 BMI 44.26 kg/ (more content not included)... [facility] 07-20-2023 Miscellaneous Notes Bariatric Seminar re-sent. Kavita Welch RN, BSN Bariatric Sifting Operator documented in this encounter [facility] 07-20-2023 History of Presen t illness Narrative SURGICAL SERVICES HISTORY AND PHYSICAL EXAMINATION SERVICE DATE: 07/20/2023 SERVICE TIME: 9:16 AM PRIMARY CARE PHYSICIAN: Stanley Sweeney DO SUBJECTIVE CHIEF COMPLAINT: follow up after surgery HISTORY OF PRESENT ILLNESS: Ms. Katz is a 52 year old female with a PMH of diastasis rectus, depression, advanced hepatic fibrosis, asthma (inhaler rare and PRN), HLD, obesity (BMI 44), SHAINA (CPAP) presents for follow up after cholecystectomy on 07/05/23. The patient reports no issues since surgery aside from one of the small 5-mm incisions that has opened up slightly. She denies nausea, emesis, diarrhea, constipation, or any other issues. She is tolerating a normal diet without issue. Pathology: A. Gallbladder, cholecystectomy: - Cholelithiasis and cholesterolosis. B. Liver, wedge biopsy: - Mild steatosis. See comment PAST MEDICAL HISTORY: PAST MEDICAL HISTORY Diagnosis Date Diastasis of rectus abdominis 12/11/2015 Dysthymic disorder Depression (non-psychotic) Environmental allergies spring. Gallstones Genital herpes, unspecified 01/09/2007 HSV (herpes simplex virus) anogenital infection 1990 Hypercholesteremia 05/2015 Leukocytoclastic vasculitis (HCC) 2012 dx by Aliyah Rodrigo Onychomycosis SHAINA (obstructive sleep apnea) 04/13/2017 Persistent asthma without complication 06/12/2018 + JADA 06/2018, chronic cough, abnormal RAST. PAST SURGICAL HISTORY: PAST SURGICAL HISTORY Procedure Laterality Date APPENDECTOMY CARPAL TUNNEL 2017 CARPAL TUNNEL Right 2018 CHOLECYSTECTOMY HX 07/05/2023 LIVER BIOPSY 07/05/2023 NEUROPLASTY &/TRANSPOS MEDIAN NRV CARPAL TUNNE Right 09/13/2016 THYROID LEFT FINE NEEDLE ASPIRATION 08/02/2007 U/ S FNA left thyroid nodule TOTAL THYROID LOBECTOMY UNI W/WO ISTHMUSECTOMY 08/31/2007 LEFT VAGINAL HYSTERECTOMY UTERUS 250 GM/< 12/01/2009 TVH for fibroid, menorrhagia, adenomyosis FAMILY HISTORY: FAMILY HISTORY Problem Relation Age of Onset other (FIBROMYALGIA) Mother Lipids Father Ischemic Heart Disease Father Heart Father GA has hole in heart Stroke Father Diabetes Father Stroke Maternal Grandmother Alzheimer's Disease Maternal Grandmother Psychiatry Maternal Grandmother DEMENTIA Breast Cancer Maternal Grandmother Diabetes Other pcousin Heart Sister Hole in heart Thyroid Sister Allergies No Family History Asthma No Family History SOCIAL HISTORY: Social History Tobacco Use Smoking status: Never Smokeless tobacco: Never Tobacco comments: No ETS in childhood or current home. Vaping Use Vaping Use: Never used Substance Use Topics Alcohol use: No Drug use: No MEDICATIONS: Current Outpatient Medications Medication Sig venlafaxine ER (EFFEXOR XR) 150 mg 24 hr capsule Take 1 capsule by mouth once daily. venlafaxine ER (EFFEXOR XR) 75 mg 24 hr capsule Take 1 capsule by mouth once daily. levothyroxine (SYNTHROID) 75 mcg tablet Take 1 tablet by mouth daily 5 days per week. Take 1.5 tablets by mouth daily 2 days per week. Take in the morning on an empty stomach. traZODone (DESYREL) 50 mg tablet Take 1 tablet by mouth daily at bedtime. furosemide (LASIX) 40 mg tablet Take 1 tablet by mouth twice daily Calcium-Cholecalciferol, D3, 600 mg-10 mcg (400 unit) cap Take 1 capsule by mouth once daily. pantoprazole DR (PROTONIX) 40 mg tablet Take 1 tablet by mouth once daily. potassium chloride (K-TAB) 10 mEq tablet Take 1 tablet by mouth daily with breakfast. albuterol HFA (PROVENTIL HFA, VENTOLIN HFA) 90 mcg/actuation inhaler Inhale 2 Puffs as instructed every 4 hours as needed. cholecalciferol (VITAMIN D3) 50 mcg (2,000 unit) tablet Take 1 tablet by mouth once daily. loratadine (CLARITIN) 10 mg tablet Take 1 tablet by mouth once daily. CPAP Initiate CPAP @ 10 cm of water with humidification. Mask (per patient preference) optional chin strap (if indicated) , filters, tubing, humidifier and lifetime supplies. COMPOUNDED PRESCRIPTION CPAP Supplies; hose; mask DX: SHAINA multivitamins(DAILY VITAMIN TAB) Take one(1) tablet daily. budesonide-formoterol (SYMBICORT) 80-4.5 mcg/actuation inhaler Inhale 2 Puffs as instructed twice daily. Current Facility-Administered Medications Medication Dose Route Frequency perflutren lipid microspheres 1.3 mL in NaCl (PF) 0.9% 10 mL injection (DEFINITY) INTRAVENOUS DIRECTED PRN sodium chloride 0.9 % (flush) 10 mL (BD POSIFLUSH) 10 mL INTRAVENOUS DIRECTED PRN ALLERGIES: ALLERGIES Allergen Reactions Prozac [Fluoxetine * Other: See Comments Aggressive behavior, emotional COMPLETE REVIEW OF SYSTEMS: Review of Systems All other systems reviewed and are negative. OBJECTIVE PHYSICAL EXAM: BP 130/73 Pulse 96 Ht 5' 4 (1.63m) Wt 258 lb (117.0kg) LMP 11/16/2009 BMI 44.26 kg/(m^2). Physical Exam Vitals reviewed. Constitutional: Appearance: Normal appearance. She is obese. HENT: Head: Normocephalic and atraumatic. Nose: Nose normal. Eyes: General: No scleral icterus. Extraocular Movements: Extraocular movements intact. Conjunctiva/sclera: Conjunctivae normal. Pupils: Pupils are equal, round, and reactive to light. Cardiovascular: Rate and Rhythm: Normal rate. Pulses: Normal pulses. Pulmonary: Effort: Pulmonary effort is normal. No respiratory distress. Skin: General: Skin is warm and dry. Coloration: Skin is not jaundiced or pale. Neurological: General: No focal deficit present. Mental Status: She is alert and oriented to person, place, and time. Psychiatric: Mood and Affect: Mood normal. Behavior: Behavior normal. DATA: Diagnostic tests reviewed for today's visit: EMR reviewed Plan ASSESSMENT AND PLAN Ronnie Katz is a 52 year old female with a PMH as noted above who presents in follow up after CCx 1. Status post laparoscopic cholecystectomy - ICD9: V45.89, ICD10: Z90.49 (primary diagnosis) - Doing well with no issues 2. Class 3 severe obesity with serious comorbidity and body mass index (BMI) of 40.0 to 44.9 in adult, unspecified obesity type (HCC) - ICD9: 278.01, V85.41, ICD10: E66.01, Z68.41 - We discussed the importance of weight loss. Will resend bariatric seminar 3. Hepatic steatosis - ICD9: 571.8, ICD10: K76.0 - Discussed importance of weight loss and healthy dietary and lifestyle changes SIGNATURE: Ginna Agarwal MD PATIENT NAME: Ronnie Katz DATE: July 20, 2023 TIME: 9:16 AM PAGER/CONTACT #: [phone] documented in this encounter [facility] 07-05-2023 Note HNO ID: [id number] Author: MELIAS MONTENEGRO RN Service: ? Author Type: Registered Nurse Type: Nursing Progress Note Filed: 07/05/2023 12:12 Note Text: I/S initiated, pulling 1000 X 10 [facility] 07-05-2023 Note HNO ID: [id number] Author: JERAMY HYLTON APRN.GOLD PROSPECTOR Service: Nursing Author Type: Nurse Dopster Type: Anesthesia Procedure Notes Filed: 07/05/2023 08:08 Note Text: ANESTHESIOLOGY PROCEDURE NOTE PIV General Information Procedure Start Time/Medication Administration: 07/05/2023 7:55 AM Patient Location: OR Staffing GOLD PROSPECTOR: Jeramy Hylton APRN.GOLD PROSPECTOR Performed by: GOLD PROSPECTOR Preparation Sterility Preparation: hand hygiene performed prior to procedure, surgical cap used, mask used Sterility Technique Not Completely Performed Due to Extreme Emergency: No Site Prep: alcohol Procedure Details Indication: need for IV access Needle Size/Type: 20 gauge angiocath Orientation: Left Location: Hand Imaging Guidance Used: No SIGNATURE: Jeramy Hylton APRN.CRNA PATIENT NAME: Ronnie Katz DATE: July 05, 2023 TIME: 8:07 AM CSN: [id number] [facility] 07-05-2023 Note HNO ID: [id number] Author: JERAMY HYLTON APRN.GOLD PROSPECTOR Service: Nursing Author Type: Nurse Dopster Type: Anesthesia Procedure Notes Filed: 07/05/2023 08:07 Note Text: ANESTHESIOLOGY PROCEDURE NOTE Airway General Information Procedure Start Time/Medication Administration: 07/05/2023 7:48 AM Patient location during procedure: OR Timeout Performed Pre-procedure: timeout performed Consent Obtained: Yes Patient identity confirmed: arm band Staffing GOLD PROSPECTOR: Jeramy Hylton APRN.GOLD PROSPECTOR Performed by: CHEO Indications and Patient Condition Indications for airway management: anesthesia and airway protection Preoxygenated: yes anesthesia circuit Patient position: sniffing Method: asleep Cricoid Pressure: No Manual In-Line Stabilization: No Difficult Mask: No Airway Accessory: oral airway (90mm) Final Airway Details Final airway type: endotracheal airway Final Endotracheal Airway: ETT Cuffed: yes Successful intubation technique: direct laryngoscopy Devices used: intubating stylet Endotracheal tube insertion site: oral Blade: Gloria Blade size: #4 ETT size (mm): 7.5 Measured from: lips Measurement (cm): 21 Placement verified by: chest auscultation Cormack-Lehane Classification: grade I - full view of glottis Number of attempts at approach: 1 Failed airway: no Unrecognized esophageal intubation: no Airway not difficult SIGNATURE: Jeramy Hylton APRN.CRNA PATIENT NAME: Ronnie Katz DATE: July 05, 2023 TIME: 8:07 AM CSN: [id number] [facility] 07-04-2023 Miscellaneous Notes Called LVM to inform patient that her surgery time has changed. She will need to arrive at 6:00a her surgery will start at 7:30a documented in this encounter [facility] 06-23-2023 Miscellaneous Notes June 23, 2023 PID: [id number] Ronnie Katz [address] [place] [address] Dear Ms. Katz, We are pleased to inform you that the results of your recent breast imaging exam on 06/22/2023 are normal. Your mammogram demonstrates that you [...] report will be kept on file at [facility] as part of your permanent medical record and are available for your continuing care. Thank you for allowing us to help in meeting your health care needs. Sincerely, Dr. Lucas Interpreting Radiologist [facility] (Normal over 40) documented in this encounter [facility] 06-22-2023 History of Presen t illness Narrative Radiology Service Progress Note PATIENT NAME: Ronnie Katz DATE OF SERVICE: June 22, 2023 TIME: 1:07 PM PATIENT IDENTITY VERIFICATION COMPLETED USING TWO (2) IDENTIFIERS: Name and Date of confirmed by patient verbally. FALL SCREENING: Has the patient had 2 falls in the last year or 1 fall with injury or currently using an Ambulatory Assistive Device (Walker, Cane, Wheelchair, Crutches, etc.)? No PATIENT GENDER DATA: Female. status: : No status: NO. PATIENT RELEVANT IMPLANT DATA REVIEWED: Not Applicable PATIENT PRESENTS WITH AN IMPLANTABLE OR ATTACHED CO TEACHER: No RADIOLOGY DEPARTMENT: Mammography PERIPHERAL IV DATA: Not applicable SIGNED BY: RT Sang(R) June 22, 2023 1:07 PM documented in this encounter [facility] 06-16-2023 Miscellaneous Notes Patient notified of needing about a week off per . sent pt [employer] message with office fax number incase she needs it for paperwork for work Antionette Castillo MA Patient is scheduled to have surgery with you on 07/04 to get her gallbladder removed. Wanted to know how much time she will need to take off work so she can get that requested off ahead of time? Thanks Antionette Castillo MA documented in this encounter [facility] 06-15-2023 Miscellaneous Notes Patient has been identified by name and date of : Yes, Provider Dr. Sweeney Date 06/15/23 Time 9:30 Patient phones for refill(s): Requested Prescriptions Pending Prescriptions Disp Refills venlafaxine ER (EFFEXOR XR) 150 mg 24 hr capsule 90 capsule 1 Sig: Take 1 capsule by mouth once daily. venlafaxine ER (EFFEXOR XR) 75 mg 24 hr capsule 90 capsule 1 Sig: Take 1 capsule by mouth once daily. Date of last office visit in primary care: 04/07/2023 Date of next office visit in primary care: 08/16/2023 Please advise. Thank you. Irene Branch LPN. Pharmacy verified in [facility] Patient has been identified by name and date of : Yes Patient aware RX will be sent to pharmacy. No need to notify patient. Patient phones for refill(s): Requested Prescriptions Pending Prescriptions Disp Refills venlafaxine ER (EFFEXOR XR) 150 mg 24 hr capsule 90 capsule 1 Sig: Take 1 capsule by mouth once daily. venlafaxine ER (EFFEXOR XR) 75 mg 24 hr capsule 90 capsule 1 Sig: Take 1 capsule by mouth once daily. Date of last office visit : 04/07/2023 Date of next office visit : 08/16/2023 Last 2 Encounter Wt Readings: Date: Wt: 05/25/2023 118.4 kg (261 lb) 04/18/2023 117.7 kg (259 lb 6.4 oz) Not applicable Please advise. Marisa Mcclure documented in this encounter [facility] 05-25-2023 Note HNO ID: [id number] Author: GINNA AGARWAL MD Service: ? Author Type: Physician Type: Progress Notes Filed: 05/25/2023 14:57 Note Text: SURGICAL SERVICES HISTORY AND PHYSICAL EXAMINATION SERVICE DATE: 05/25/2023 SERVICE TIME: 2:34 PM PRIMARY CARE PHYSICIAN: Stanley Sweeney DO SUBJECTIVE CHIEF COMPLAINT: gallbladder issues HISTORY OF PRESENT ILLNESS: Ms. Katz is a 52 year old female with a PMH of diastasis rectus, depression, advanced hepatic fibrosis, asthma (inhaler rare and PRN), HLD, gallstones, obesity (BMI 44), SHAINA (CPAP) who presents for surgical consultation for gallstones. Surgical consultation was requested by the patient's referring physician, Dr. Irene Varela. A copy of this consultation note will be provided to the requesting physician(s) by way of shared medical record or letter via [place] mail. The patient has known gallstones. She was worked up with Dr. Irene Varela and ultimately referred to our clinic due to the patient's BMI of 44.80. The patient endorses several times weekly RUQ pain that does not always occur after eating. The pain occurs with nausea, but not emesis or other GI symptoms. She denies unexplained weight loss, but does have continued weight gain. She has multiple family members who have all undergone cholecystectomy Workup: - RUQ US (12/28/22): cholelithiasis. Hepatic steatosis. - CMP (01/2023): WNL except for elevated AST/ALT of 37/42 - MELD Na of 6 - ECHO (12/28/22): The left ventricle is normal in size. Left ventricular systolic function is normal. EF = 62 ? 5% (2D biplane) Grade I left ventricular diastolic dysfunction. - The right ventricle is normal in size. Right ventricular systolic function is normal. - There are no significant valvular abnormalities Social: denies use of tobacco, etoh, or illicit drugs. 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 Gallstones Genital herpes, unspecified 01/09/2007 HSV (herpes simplex virus) anogenital infection 1990 Hypercholesteremia 05/2015 Leukocytoclastic vasculitis (HCC) 2012 dx by Aliyah Wallace Onychomycosis SHAINA (obstructive sleep apnea) 04/13/2017 Persistent asthma without complication 06/12/2018 + JADA 06/2018, chronic cough, abnormal RAST. PAST SURGICAL HISTORY: PAST SURGICAL HISTORY Procedure Laterality Date APPENDECTOMY NEUROPLASTY AND/TRANSPOS MEDIAN NRV CARPAL TUNNE Right 09/13/2016 THYROID LEFT FINE NEEDLE ASPIRATION 08/02/07 U/ S FNA left thyroid nodule TOTAL THYROID LOBECTOMY UNI W/WO ISTHMUSECTOMY 08/31/07 LEFT VAGINAL HYSTERECTOMY UTERUS 250 GM/< 12/01/09 TVH for fibroid, menorrhagia, adenomyosis FAMILY HISTORY: FAMILY HISTORY Problem Relation Age of Onset other (FIBROMYALGIA) Mother Lipids Father Ischemic Heart Disease Father Heart Father [place] has hole in heart Stroke Father Diabetes Father Stroke Maternal Grandmother Alzheimer's Disease Maternal Grandmother Psychiatry Maternal Grandmother DEMENTIA Breast Cancer Maternal Grandmother Diabetes Other pcousin Heart Sister Hole in heart Thyroid Sister Allergies No Family History Asthma No Family History SOCIAL HISTORY: Social History Tobacco Use Smoking status: Never Smokeless tobacco: Never Tobacco comments: No ETS in childhood or current home. Vaping Use Vaping Use: Never used Substance Use Topics Alcohol use: No Drug use: No MEDICATIONS: Current Outpatient Medications Medication Sig levothyroxine (SYNTHROID) 75 mcg tablet Take 1 tablet by mouth daily 5 days per week. Take 1.5 tablets by mouth daily 2 days per week. Take in the morning on an empty stomach. traZODone (DESYREL) 50 mg tablet Take 1 tablet by mouth daily at bedtime. furosemide (LASIX) 40 mg tablet Take 1 tablet by mouth twice daily Calcium-Cholecalciferol, D3, 600 mg-10 mcg (400 unit) cap Take 1 capsule by mouth once daily. pantoprazole DR (PROTONIX) 40 mg tablet Take 1 tablet by mouth once daily. potassium chloride (K-TAB) 10 mEq tablet Take 1 tablet by mouth daily with breakfast. albuterol HFA (PROVENTIL HFA, VENTOLIN HFA) 90 mcg/actuation inhaler Inhale 2 Puffs as instructed every 4 hours as needed. cholecalciferol (VITAMIN D3) 50 mcg (2,000 unit) tablet Take 1 tablet by mouth once daily. loratadine (CLARITIN) 10 mg tablet Take 1 tablet by mouth once daily. CPAP Initiate CPAP @ 10 cm of water with humidification. Mask (per patient preference) optional chin strap (if indicated) , filters, tubing, humidifier and lifetime supplies. COMPOUNDED PRESCRIPTION CPAP Supplies; hose; mask DX: SHAINA multivitamins(DAILY VITAMIN TAB) Take one(1) tablet daily. venlafaxine ER (EFFEXOR XR) 150 mg 24 hr capsule Take 1 capsule by mouth once daily. venlaf (more content not included)... [facility] 05-25-2023 Miscellaneous Notes Bariatric Seminar sent. Kavita Welch RN documented in this encounter [facility] 05-25-2023 History of Presen t illness Narrative SURGICAL SERVICES HISTORY AND PHYSICAL EXAMINATION SERVICE DATE: 05/25/2023 SERVICE TIME: 2:34 PM PRIMARY CARE PHYSICIAN: Stanley Sweeney DO SUBJECTIVE CHIEF COMPLAINT: gallbladder issues HISTORY OF PRESENT ILLNESS: Ms. Katz is a 52 year old female with a PMH of diastasis rectus, depression, advanced hepatic fibrosis, asthma (inhaler rare and PRN), HLD, gallstones, obesity (BMI 44), SHAINA (CPAP) who presents for surgical consultation for gallstones. Surgical consultation was requested by the patient's referring physician, Dr. Irene Varela. A copy of this consultation note will be provided to the requesting physician(s) by way of shared medical record or letter via [place] mail. The patient has known gallstones. She was worked up with Dr. Irene Varela and ultimately referred to our clinic due to the patient's BMI of 44.80. The patient endorses several times weekly RUQ pain that does not always occur after eating. The pain occurs with nausea, but not emesis or other GI symptoms. She denies unexplained weight loss, but does have continued weight gain. She has multiple family members who have all undergone cholecystectomy Workup: - RUQ US (12/28/22): cholelithiasis. Hepatic steatosis. - CMP (01/2023): WNL except for elevated AST/ALT of 37/42 - MELD Na of 6 - ECHO (12/28/22): The left ventricle is normal in size. Left ventricular systolic function is normal. EF = 62 5% (2D biplane) Grade I left ventricular diastolic dysfunction. - The right ventricle is normal in size. Right ventricular systolic function is normal. - There are no significant valvular abnormalities Social: denies use of tobacco, etoh, or illicit drugs. 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 Gallstones Genital herpes, unspecified 01/09/2007 HSV (herpes simplex virus) anogenital infection 1990 Hypercholesteremia 05/2015 Leukocytoclastic vasculitis (HCC) 2012 dx by Aliyah Wallace Ontelmaomycosis SHAINA (obstructive sleep apnea) 04/13/2017 Persistent asthma without complication 06/12/2018 + JADA 06/2018, chronic cough, abnormal RAST. PAST SURGICAL HISTORY: PAST SURGICAL HISTORY Procedure Laterality Date APPENDECTOMY NEUROPLASTY &/TRANSPOS MEDIAN NRV CARPAL TUNNE Right 09/13/2016 THYROID LEFT FINE NEEDLE ASPIRATION 08/02/07 U/ S FNA left thyroid nodule TOTAL THYROID LOBECTOMY UNI W/WO ISTHMUSECTOMY 08/31/07 LEFT VAGINAL HYSTERECTOMY UTERUS 250 GM/< 12/01/09 TVH for fibroid, menorrhagia, adenomyosis FAMILY HISTORY: FAMILY HISTORY Problem Relation Age of Onset other (FIBROMYALGIA) Mother Lipids Father Ischemic Heart Disease Father Heart Father GA has hole in heart Stroke Father Diabetes Father Stroke Maternal Grandmother Alzheimer's Disease Maternal Grandmother Psychiatry Maternal Grandmother DEMENTIA Breast Cancer Maternal Grandmother Diabetes Other pcousin Heart Sister Hole in heart Thyroid Sister Allergies No Family History Asthma No Family History SOCIAL HISTORY: Social History Tobacco Use Smoking status: Never Smokeless tobacco: Never Tobacco comments: No ETS in childhood or current home. Vaping Use Vaping Use: Never used Substance Use Topics Alcohol use: No Drug use: No MEDICATIONS: Current Outpatient Medications Medication Sig levothyroxine (SYNTHROID) 75 mcg tablet Take 1 tablet by mouth daily 5 days per week. Take 1.5 tablets by mouth daily 2 days per week. Take in the morning on an empty stomach. traZODone (DESYREL) 50 mg tablet Take 1 tablet by mouth daily at bedtime. furosemide (LASIX) 40 mg tablet Take 1 tablet by mouth twice daily Calcium-Cholecalciferol, D3, 600 mg-10 mcg (400 unit) cap Take 1 capsule by mouth once daily. pantoprazole DR (PROTONIX) 40 mg tablet Take 1 tablet by mouth once daily. potassium chloride (K-TAB) 10 mEq tablet Take 1 tablet by mouth daily with breakfast. albuterol HFA (PROVENTIL HFA, VENTOLIN HFA) 90 mcg/actuation inhaler Inhale 2 Puffs as instructed every 4 hours as needed. cholecalciferol (VITAMIN D3) 50 mcg (2,000 unit) tablet Take 1 tablet by mouth once daily. loratadine (CLARITIN) 10 mg tablet Take 1 tablet by mouth once daily. CPAP Initiate CPAP @ 10 cm of water with humidification. Mask (per patient preference) optional chin strap (if indicated) , filters, tubing, humidifier and lifetime supplies. COMPOUNDED PRESCRIPTION CPAP Supplies; hose; mask DX: SHAINA multivitamins(DAILY VITAMIN TAB) Take one(1) tablet daily. venlafaxine ER (EFFEXOR XR) 150 mg 24 hr capsule Take 1 capsule by mouth once daily. venlafaxine ER (EFFEXOR XR) 75 mg 24 hr capsule Take 1 capsule by mouth once daily. budesonide-formoterol (SYMBICORT) 80-4.5 mcg/actuation inhaler Inhale 2 Puffs as instructed twice daily. Current Facility-Administered Medications Medication Dose Route Frequency perflutren lipid microspheres 1.3 mL in NaCl (PF) 0.9% 10 mL injection (DEFINITY) INTRAVENOUS DIRECTED PRN sodium chloride 0.9 % (flush) 10 mL (BD POSIFLUSH) 10 mL INTRAVENOUS DIRECTED PRN ALLERGIES: ALLERGIES Allergen Reactions Prozac [Fluoxetine * Other: See Comments Aggressive behavior, emotional COMPLETE REVIEW OF SYSTEMS: Review of Systems Constitutional: Negative for chills, diaphoresis, fever and malaise/fatigue. HENT: Negative for congestion, hearing loss, nosebleeds, sinus pain, sore throat and tinnitus. Eyes: Negative for blurred vision, double vision, pain and redness. Respiratory: Negative for cough, hemoptysis, sputum production, shortness of breath and wheezing. Cardiovascular: Negative for chest pain, palpitations, orthopnea, leg swelling and PND. Gastrointestinal: Positive for abdominal pain and nausea. Negative for blood in stool, constipation, diarrhea, heartburn and vomiting. Genitourinary: Negative for dysuria, frequency, hematuria and urgency. Musculoskeletal: Negative for back pain, falls, joint pain, myalgias and neck pain. Skin: Negative for itching and rash. Neurological: Negative for dizziness, speech change, focal weakness, seizures, loss of consciousness, weakness and headaches. Endo/Heme/Allergies: Does not bruise/bleed easily. Psychiatric/Behavioral: Negative for depression, hallucinations, memory loss, substance abuse and suicidal ideas. The patient is not nervous/anxious and does not have insomnia. OBJECTIVE PHYSICAL EXAM: BP 121/41 Pulse 93 Ht 5' 4 (1.63m) Wt 261 lb (118.4kg) LMP 11/16/2009 BMI 44.78 kg/(m^2). Physical Exam Vitals reviewed. Constitutional: Appearance: Normal appearance. She is obese. HENT: Head: Normocephalic and atraumatic. Nose: Nose normal. Eyes: General: No scleral icterus. Extraocular Movements: Extraocular movements intact. Conjunctiva/sclera: Conjunctivae normal. Pupils: Pupils are equal, round, and reactive to light. Cardiovascular: Rate and Rhythm: Normal rate. Pulmonary: Effort: Pulmonary effort is normal. No respiratory distress. Skin: General: Skin is warm and dry. Coloration: Skin is not jaundiced or pale. Neurological: General: No focal deficit present. Mental Status: She is alert and oriented to person, place, and time. Psychiatric: Mood and Affect: Mood normal. Behavior: Behavior normal. DATA: Diagnostic tests reviewed for today's visit: EMR reviewed - see above Plan ASSESSMENT AND PLAN Ronnie Katz is a 52 year old female with a PMH as noted above who presents with gallstones. 1. Gallstones - ICD9: 574.20, ICD10: K80.20 (primary diagnosis) - Today in clinic I discussed with the patient and her significant other the etiology of symptomatic cholelithiasis and the potential management options regarding this diagnosis. Given her clinical symptoms and radiographic studies, I recommend removal of her gallbladder. The patient is in agreement and would like to proceed. We discussed the potential risks and complications associated with laparoscopic, possible open, cholecystectomy with possible intraoperative cholangiogram. Potential risks/complications include, but are not limited to bleeding, infection, chronic diarrhea, scaring, injury to surrounding structures (liver, intestine, stomach, bile ducts, vascular structures), bile leak, and need for further operative intervention. She provided both verbal and written informed consent. - Her hepatology team is also requesting liver biopsy - this will increase risk of bleeding. Will plan for a small wedge biopsy at the time of lap ccx. - COMP METABOLIC PANEL - CBC + DIFF - XR CHEST 2V FRONTAL/LAT - ECG COMPLETE - CONSULT TO PRE-SURGICAL TESTING (AG) 2. Class 3 severe obesity with serious comorbidity and body mass index (BMI) of 40.0 to 44.9 in adult, unspecified obesity type (HCC) - ICD9: 278.01, V85.41, ICD10: E66.01, Z68.41 - Send bariatric seminar. Will get enrolled in bariatric program 3. Nonalcoholic steatohepatitis (NAVA) - ICD9: 571.8, ICD10: K75.81 - She would benefit from weight loss. We discussed the importance of weight loss - COMP METABOLIC PANEL - CBC + DIFF 4. SHAINA (obstructive sleep apnea) - ICD9: 327.23, ICD10: G47.33 - Continue current medical management; continue nightly CPAP use 5. Hyperlipidemia, unspecified hyperlipidemia type - ICD9: 272.4, ICD10: E78.5 - Continue current medical management Medical Decision Making: Problems: Moderate: 2+ stable chronic illnesses Data: Unique test result(s) reviewed: 3+ Unique test(s) ordered: 2 Discussed management or test w/ external physician/QHCP/source Risk: High: Decision on elective major surgery w/ risk factors Medical Decision Making Level: 5 - High SIGNATURE: Ginna Agarwal MD PATIENT NAME: Ronnie Katz DATE: May 25, 2023 TIME: 2:34 PM PAGER/CONTACT #: [id number] documented in this encounter [facility] 03-07-2023 History of Presen t illness Narrative NAME: Ronnie Katz [facility] NO: [id number] REFERRING PHYSICIAN: PRESENTING COMPLAINT: HPI: Ronnie Katz is a 52 year old female with PMHx hypercholesterolemia, SHAINA, depression, genital herpes, leukocytoclastic vasculitis is here on follow up for hepatic steatosis; advanced hepatic fibrosis. Last seen by me: 01/26/23 At last visit: IMPRESSION Ronnie Katz is a 52 year old year old female with PMHx hypercholesterolemia, SHAINA, depression, genital herpes, leukocytoclastic vasculitis who presents with elevated liver enzymes and concern for advanced hepatic fibrosis. She does have hx of hepatic steatosis on imaging with most recent Fibroscan indicating concern for advanced fibrosis given kpa 15.4. She does have preserved synthetic function at this time, and if truly cirrhotic, appears well compensated. Discussed liver biopsy benefit versus continuing to monitor with MELD labs and imaging [id number]. Will perform serologic evaluation today for etiology although MASH likely. Discussed MASH and risk factors, its progression, and ideal weight loss of 10% along with complete ETOH cessation. PLAN Elevated LFTs with concern for advanced hepatic fibrosis: - Fibroscan with CAP 308, kpa 15.4, IQR 19% - likely r/t MASLD /MASH - serologic evaluation - discussed role of liver biopsy for more definitive fibrosis staging versus MELD labs and imaging Q6 months.To be discussed at next visit EV: - will hold off EGD screening at this time given patient's ambivalence at this time. Advised to further discuss at next visit. Ascites: - continue Lasix 40 mg daily per PCP for LLE. <2,000mg Na diet. HE: - High protein diet. HCC screening: - UTD with RUQ US 12/2022 with increased echogenicity. No hepatic lesin noted RUQ abd pain: - hx of cholelithiasis - refer to general surgery Return to office in 1 months for results review. Since last visit: Overall, feeling well States occasional constipation for years C-scope completed 02/25/23 with one 3 mm polyp in cecum; non-bleeding external hemorrhoids. Recommend repeat c-scope in 7-10 years Most recent blood work:01/29/23 ALP WNL, AST/ALT 37/42 Preserved synthetic liver function Plt WNL Serologic evaluation 01/29/23: Ferritin 248, no HFE variant for HH Fibroscan 01/04/23: CAP 308, kpa 15.4, IQR 19% RUQ US 12/28/22: hepatic steatosis; choellithiasis. ETOH use: Denies Nutrition: Trying to intermittent fast EV: Denies. Ascites: Lasix 40 mg daily per PCP for LLE. Nam snot adhere to low Na diet. HE: States confusion about what she is doing sometimes. No asterixis noted on today's exam. HCC screening: UTD with RUQ US 12/28/22 with hepatic steatosis; cholelithiasis Denies jaundice, RUQ pain, nausea, vomiting, constipation, diarrhea, hematochezia, hematemesis, ascites, episodes of confusion. IMAGING: RUQ US 12/28/22: IMPRESSION: 1. Hepatic steatosis. 2. Cholelithiasis. RESULT: Pancreas: Normal sonographic appearance. Portions obscured: tail Liver: Echotexture: Normal, homogeneous. Echogenicity: Increased Surface contour: Smooth Lesions: None. Biliary: No intrahepatic biliary duct dilation. CBD: 0.4 cm at the hilum. Gallbladder: Normal caliber -Contents: Cholelithiasis -Wall: Normal -Other: No pericholecystic fluid. Right Kidney: Measures 12.5 cm in longitudinal dimension. Normal cortical echogenicity. No hydronephrosis. Left kidney: Measures 12.4 cm in longitudinal dimension. Normal cortical echogenicity. No hydronephrosis. Spleen: Normal in size measuring 11.1 cm in longitudinal dimension. Ascites: None. REVIEW OF SYSTEMS GENERAL: No unexplained weight changes or fevers. GASTROINTESTINAL: Negative for rectal bleeding or black tarry stools. MUSCULOSKELETAL: Negative for unexplained joint pains, dislocations or fractures. NEUROLOGIC: Negative for unexplained weakness or vertigo. SKIN: Negative for new lesions or rashes. Current Outpatient Medications Medication Sig Dispense Refill furosemide (LASIX) 40 mg tablet Take 1 tablet by mouth twice daily 60 tablet 0 Calcium-Cholecalciferol, D3, 600 mg-10 mcg (400 unit) cap Take 1 capsule by mouth once daily. [address] (PROTONIX) 40 mg tablet Take 1 tablet by mouth once daily. 30 tablet 5 traZODone (DESYREL) 50 mg tablet Take 1 tablet by mouth daily at bedtime. 90 tablet 3 potassium chloride (K-TAB) 10 mEq tablet Take 1 tablet by mouth daily with breakfast. 90 tablet 1 venlafaxine ER (EFFEXOR XR) 150 mg 24 hr capsule Take 1 capsule by mouth once daily. 90 capsule 1 venlafaxine ER (EFFEXOR XR) 75 mg 24 hr capsule Take 1 capsule by mouth once daily. 90 capsule 1 levothyroxine (SYNTHROID) 75 mcg tablet Take 1 tablet by mouth daily 5 days per week. Take 1.5 tablets by mouth daily 2 days per week. Take in the morning on an empty stomach. 90 tablet 1 budesonide-formoterol (SYMBICORT) 80-4.5 mcg/actuation inhaler Inhale 2 Puffs as instructed twice daily. 14 g 2 albuterol HFA (PROVENTIL HFA, VENTOLIN HFA) 90 mcg/actuation inhaler Inhale 2 Puffs as instructed every 4 hours as needed. 18 g 1 cholecalciferol (VITAMIN D3) 50 mcg (2,000 unit) tablet Take 1 tablet by mouth once daily. 90 tablet 3 loratadine (CLARITIN) 10 mg tablet Take 1 tablet by mouth once daily. 30 tablet 11 CPAP Initiate CPAP @ 10 cm of water with humidification. Mask (per patient preference) optional chin strap (if indicated) , filters, tubing, humidifier and lifetime supplies. 1 Device 0 COMPOUNDED PRESCRIPTION CPAP Supplies; hose; mask DX: SHAINA 1 Each 0 multivitamins(DAILY VITAMIN TAB) Take one(1) tablet daily. 0 Blood Pressure Monitor (BLOOD PRESSURE KIT) 1 Each once daily. (Patient not taking: Reported on 03/07/2023) 1 Kit 0 Current Facility-Administered Medications Medication Dose Route Frequency Provider Last Rate Last Admin perflutren lipid microspheres 1.3 mL in NaCl (PF) 0.9% 10 mL injection (DEFINITY) INTRAVENOUS DIRECTED PRN Adia Robles, AYLIN.[employer]ANGING [employer]LL OPERATOR sodium chloride 0.9 % (flush) 10 mL (BD POSIFLUSH) 10 mL INTRAVENOUS DIRECTED PRN Adia Robles, AYLIN.FLANGING ROLL OPERATOR ALLERGIES Allergen Reactions Prozac [Fluoxetine * Other: See Comments Aggressive behavior, emotional Social History Tobacco Use Smoking status: Never Smokeless tobacco: Never Tobacco comments: No ETS in childhood or current home. Vaping Use Vaping Use: Never used Substance Use Topics Alcohol use: No Drug use: No PAST MEDICAL HISTORY Diagnosis Date Diastasis of rectus abdominis 12/11/2015 Dysthymic disorder Depression (non-psychotic) Environmental allergies spring. Gallstones Genital herpes, unspecified 01/09/2007 HSV (herpes simplex virus) anogenital infection 1990 Hypercholesteremia 05/2015 Leukocytoclastic vasculitis (HCC) 2012 dx by Aliyah Wallace Onychomycosis SHAINA (obstructive sleep apnea) 04/13/2017 Persistent asthma without complication 06/12/2018 + JADA 06/2018, chronic cough, abnormal RAST. @SHX@ FAMILY HISTORY Problem Relation Age of Onset other (FIBROMYALGIA) Mother Lipids Father Ischemic Heart Disease Father Heart Father GA has hole in heart Stroke Father Diabetes Father Stroke Maternal Grandmother Alzheimer's Disease Maternal Grandmother Psychiatry Maternal Grandmother DEMENTIA Breast Cancer Maternal Grandmother Diabetes Other pcousin Heart Sister Hole in heart Thyroid Sister Allergies No Family History Asthma No Family History PHYSICAL EXAM LMP 11/16/2009 General Appearance: Well appearing, alert, in no acute distress, well-hydrated, well nourished. Eyes:conjunctiva and sclera normal Abdomen: not distended, soft and depressible, no guarding or rebound, no palpable mass, no organomegaly Extremities: no cyanosis or asterixis. Trace LLE Skin: no jaundice, no spider angiomas, no palmar erythema Neuro:alert, oriented x 3, pleasant and in no acute distress Recent Labs: Hemoglobin (g/dL) Date Value 01/29/2023 13.8 07/30/2020 13.8 Hematocrit (%) Date Value 01/29/2023 41.0 07/30/2020 42.4 WBC (k/uL) Date Value 01/29/2023 6.26 07/30/2020 6.80 Glucose (mg/dL) Date Value 01/29/2023 78 07/30/2020 100 Potassium (mmol/L) Date Value 01/29/2023 4.0 07/30/2020 3.6 Sodium (mmol/L) Date Value 01/29/2023 141 07/30/2020 139 Chloride (mmol/L) Date Value 01/29/2023 106 07/30/2020 97 CO2 (mmol/L) Date Value 01/29/2023 25 07/30/2020 30 Creatinine (mg/dL) Date Value 01/29/2023 0.78 07/30/2020 0.83 BUN (mg/dL) Date Value 01/29/2023 14 07/30/2020 11 Anion Gap (mmol/L) Date Value 01/29/2023 10 07/30/2020 12 Calcium (mg/dL) Date Value 07/30/2020 9.6 Calcium, Total (mg/dL) Date Value 01/29/2023 9.5 Albumin (g/dL) Date Value 01/29/2023 4.3 Bilirubin, Total (mg/dL) Date Value 01/29/2023 0.2 Bilirubin, Conjugated (mg/dL) Date Value 01/29/2023 <0.2 Alkaline Phosphatase (U/L) Date Value 01/29/2023 70 AST (U/L) Date Value 01/29/2023 37 (H) ALT (U/L) Date Value 01/29/2023 42 (H) Protein, Total (g/dL) Date Value 01/29/2023 7.2 MELD 3.0: 7 at 01/29/2023 10:20 AM MELD-Na: 6 at 01/29/2023 10:20 AM Calculated from: Serum Creatinine: 0.78 mg/dL (Using min of 1 mg/dL) at 01/29/2023 10:20 AM Serum Sodium: 141 mmol/L (Using max of 137 mmol/L) at 01/29/2023 10:20 AM Total Bilirubin: 0.2 mg/dL (Using min of 1 mg/dL) at 01/29/2023 10:20 AM Serum Albumin: 4.3 g/dL (Using max of 3.5 g/dL) at 01/29/2023 10:20 AM INR(ratio): 0.9 (Using min of 1) at 01/29/2023 10:20 AM Age at listing (hypothetical): 52 years Sex: Female at 01/29/2023 10:20 AM Assessment IMPRESSION Ronnie Katz is a 52 year old female is here on follow up for hepatic steatosis; advanced hepatic fibrosis with most recent Fibroscan indicating concern for advanced fibrosis given kpa 15.4 likely r/ MASH given negative serologic evaluation. She does have preserved synthetic function at this time, and if truly cirrhotic, appears well compensated. Discussed liver biopsy benefit versus continuing to monitor with MELD labs and imaging [id number]; patient would like to proceed with liver biopsy. Will schedule today; although could be completed during cholecystectomy if patient will be undergoing surgery in the near future. Discussed MASH and risk factors, its progression, and ideal weight loss of 10% along with complete ETOH cessation. PLAN Advanced hepatic fibrosis: - likely r/t MASH - MELD Na of 6 - discussed liver biopsy versus continued noninvasive surveillance with MELD labs/imaging Q6 months. Patient opts for liver biopsy. Will order today. - Discussed with patient can also complete liver biopsy concurrently with cholecystectomy if she is undergoing cholecystectomy in the near future - Patient states she will call and discuss whether she will undergo cholecystectomy EV: notindicated at this time given kpa <20 and Plt count >150k Ascites: Continue current diuretic regimen via PCP. HE: High protein diet. HCC screening: UTD with RUQ US 12/2022 without hepatic lesion. To have repeat RUQ US Q6 months. CRC screening: UTD with c-scope 01/2023, to be repeated in 7-10 yrs HAV/HBV immunity: Not immune to HAV or HBV. Advised both HAV and HBV vaccine locally via PCP. Follow up 2-3 weeks after biopsy. Please contact sooner if you have questions or problems develop. Candy Pabon APRN.CNP March 07, 2023 2:51 PM documented in this encounter [facility] 02-25-2023 Nurse Note AMBULATORY PATIENT EDUCATION NOTE TOPIC: GI PROCEDURES: Colonoscopy with or without biopsies based on clinical findings READINESS TO LEARN INSTRUCTION PROVIDED TO: Patient and family member COGNITIVE ABILITY: Alert and oriented PTED MOTIVATION TO LEARN: Interested FAMILY SUPPORT: High - Very involved in pt care IPATIENT LEARNS BEST BY: Individual Instruction Written Instruction - Hand-outs Verbal Instruction FACTORS AFFECTING LEARNING: None PHYSICAL LIMITATIONS AFFECTING LEARNING: None LEARNING RESPONSE METHOD OF INSTRUCTION: Individual instruction PATIENT / FAMILY RESPONSE: Verbalizes understanding of: WORSENING CONDITION-Signs and symptoms of a worsening condition that warrant a call to the physician FOLLOW-UP PLAN: Recommend - Recommend continued instruction and follow up as directed SUPPLEMENTAL MATERIAL: Procedure Discharge Instructions REFERRAL (RECOMMENDATION): None PRE OP LEARNING ASSESSMENT PROCEDURE/SURGERY: GI PROCEDURES: Colonoscopy READINESS TO LEARN COGNITIVE ABILITY: Alert and oriented MOTIVATION TO LEARN: Eager Interested FAMILY SUPPORT: Unable to assess - Family not present PATIENT LEARNS BEST BY: Individual Instruction Verbal Instruction FACTORS AFFECTING LEARNING: None PHYSICAL LIMITATIONS AFFECTING LEARNING: None Electronically Signed By: Jennifer Barnett RN In Department: GASTROENTEROLOGY documented in this encounter [facility] 02-25-2023 History and physical note HISTORY AND PHYSICAL Ronnie Katz, 52 year old female Current history and physical on file: No Is a new History and Physical required for today's visit? Yes Indication for procedure: Screening PROCEDURE(S) SCHEDULED FOR: Colonoscopy with or without biopsies and with or without removal of polyps or lesions, dilation (any means), treatment of bleeding (any means), based on clinical findings. BASELINE BEHAVIOR: Calm BASELINE ORIENTATION: A & O x3 All medications and allergies reviewed: Yes Skin Assessment: Warm dry mucus membranes pink Airway/Respiratory Assessment: Airway: visualization of the uvula- Yes Mouth: opening greater than 2 fingerbreadths- Yes Neck: full range of motion- Yes Breath sounds clear/equal- Yes Cardiac Assessment: Regular rate and rhythm without murmur Abdominal Assessment: Abdomen soft, non-tender, no masses or organomegaly. Sedation Plan: Moderate Additional Comments: None Ernst Granados MD documented in this encounter [facility] 02-03-2023 History of Presen t illness Narrative Radiology Service Progress Note PATIENT NAME: Ronnie Katz DATE OF SERVICE: February 03, 2023 TIME: 2:23 PM PATIENT IDENTITY VERIFICATION COMPLETED USING TWO (2) IDENTIFIERS: Name and Date of confirmed by patient verbally. FALL SCREENING: Has the patient had 2 falls in the last year or 1 fall with injury or currently using an Ambulatory Assistive Device (Walker, Cane, Wheelchair, Crutches, etc.)? No PATIENT GENDER DATA: Female. status: status: NO. PATIENT RELEVANT IMPLANT DATA REVIEWED: Yes RADIOLOGY DEPARTMENT: MR; Exam(s) Completed: Lower MSK: Forefoot/Midfoot, left PERIPHERAL IV DATA: Not applicable SIGNED BY: RT Jennifer(R) February 03, 2023 2:23 PM documented in this encounter [facility] 02-02-2023 Miscellaneous Notes Rx refilled 01/10/23 Qty: 90 with 1 refill. Pt shoulkd have refills left. msg sent to pt advising of same. Veronica Salinas LPN documented in this encounter [facility] 02-02-2023 Miscellaneous Notes Last refill Ptotonix 07/07/22 Qty: 30 with 5 refills Last refill D3 600 mg-10 mcg 03/11/22 Qty: 90 with 3 refills NAYELY 01/06/23 NOV 04/07/23 Veronica Salinas LPN documented in this encounter [facility] 02-02-2023 Miscellaneous Notes Last refill 11/09/22 Qty: 60 with 0 refills NAYELY 01/06/23 NOV 04/07/23 Veronica Salinas LPN documented in this encounter [facility] 01-26-2023 History of Presen t illness Narrative N emedical weight manegement NAME: Ronnie Katz AGE: [age] year old Patient is referred in consultation by Adia Robles for an opinion regarding abnormal liver test and my final recommendations will be communicated back to the requesting physician by way of shared Medical Record. PRESENTING COMPLAINT & HISTORY Ronnie Katz is a 52 year old year old female with PMHx hypercholesterolemia, SHAINA, depression, genital herpes, leukocytoclastic vasculitis who presents with elevated liver enzymes. With mild fluctuation in LFTs noted since 10/2019. Most recent blood work: AP 79, AST/ALT 43/51 Preserved synthetic liver function Plt WNL States RUQ US discomfort Intermittent pain that fluctuates between discomfort and stabbing pain Sometimes she doubles over in pain, lasts 10-15 seconds Not associated with eating Stretching did not improve pain Also with constipation C-scope ordered but has not yet scheduled RUQ US 12/28/22: hepatic steatosis, cholelithiasis. No hepatic lesions noted. Fibroscan 01/04/23: CAP 308, kpa 15.4, IQR 19% ETOH use: Special occasions, 1-2 mixed drinks at time. No hisotyr of heavy use. Nutrition: Does not follow specific diet Metabolic Syndrome Risk factors: 04/15 1) Diabetes/ Abnormal FBS >100mg/dL: no 2) Hypertension : no 3)Triglycerides more then 150 : no 4) HDL (<50 female and <40 male): no 5) Central obesity ( Waist >102 men and >88 female) - Body mass index is 44.11 kg/(m^2) Risk Factors for Liver Disease: 1. Blood transfusions before 1991: No 2. IVDA: No 3. Intranasal coccaine use: No 4. Tattoos: No 5. Service: Yes, [employer] (1989) 6. High risk sexual behavior: No 7. Alcohol: Yes, Special occasions, 1-2 mixed drinks at time 8. Obesity: Yes 9. Hyperlipidemia: no 10. Prolonged exposure to hepatotoxic meds: No 11. Other autoimmune disorders Mike OTC herbal supplements: Denies Tylenol use: Denies EV: Denies. Ascites: Denies. LLE. On Lasix 40 mg daily. HE: Denies. HCC screening: RUQ US 12/28/22 with hepatic steatosis; cholelithiasis. CRC screening: Order in place; has not yet scheduled Bone health: Denies jaundice, abd pain, N/V, constipation, diarrhea, hematemesis, hematochezia, ascites, episodes of confusion. IMAGING: RUQ US 12/28/22: IMPRESSION: 1. Hepatic steatosis. 2. Cholelithiasis. RESULT: Pancreas: Normal sonographic appearance. Portions obscured: tail Liver: Echotexture: Normal, homogeneous. Echogenicity: Increased Surface contour: Smooth Lesions: None. Biliary: No intrahepatic biliary duct dilation. CBD: 0.4 cm at the hilum. Gallbladder: Normal caliber -Contents: Cholelithiasis -Wall: Normal -Other: No pericholecystic fluid. Right Kidney: Measures 12.5 cm in longitudinal dimension. Normal cortical echogenicity. No hydronephrosis. Left kidney: Measures 12.4 cm in longitudinal dimension. Normal cortical echogenicity. No hydronephrosis. Spleen: Normal in size measuring 11.1 cm in longitudinal dimension. Ascites: None. PAST SURGICAL HISTORY Procedure Laterality Date APPENDECTOMY NEUROPLASTY &/TRANSPOS MEDIAN NRV CARPAL TUNNE Right 09/13/2016 THYROID LEFT FINE NEEDLE ASPIRATION 08/02/07 U/ S FNA left thyroid nodule TOTAL THYROID LOBECTOMY UNI W/WO ISTHMUSECTOMY 08/31/07 LEFT VAGINAL HYSTERECTOMY UTERUS 250 GM/< 12/01/09 TVH for fibroid, menorrhagia, adenomyosis PAST MEDICAL HISTORY Diagnosis Date Diastasis of rectus abdominis 12/11/2015 Dysthymic disorder Depression (non-psychotic) Environmental allergies Spring worse. Genital herpes, unspecified 01/09/2007 HSV (herpes simplex virus) anogenital infection 1990 Hypercholesteremia 05/2015 Leukocytoclastic vasculitis (HCC) 2012 dx by Aliyah Wallace Onychomycosis SHAINA (obstructive sleep apnea) 04/13/2017 Persistent asthma without complication 06/12/2018 + JADA 06/2018, chronic cough, abnormal RAST. Social History Tobacco Use Smoking status: Never Smokeless tobacco: Never Tobacco comments: No ETS in childhood or current home. Vaping Use Vaping Use: Never used Substance Use Topics Alcohol use: No Drug use: No Current Outpatient Medications Medication Sig Dispense Refill traZODone (DESYREL) 50 mg tablet Take 1 tablet by mouth daily at bedtime. 90 tablet 3 potassium chloride (K-TAB) 10 mEq tablet Take 1 tablet by mouth daily with breakfast. 90 tablet 1 venlafaxine ER (EFFEXOR XR) 150 mg 24 hr capsule Take 1 capsule by mouth once daily. 90 capsule 1 venlafaxine ER (EFFEXOR XR) 75 mg 24 hr capsule Take 1 capsule by mouth once daily. 90 capsule 1 furosemide (LASIX) 40 mg tablet Take 1 tablet by mouth twice daily 60 tablet 0 levothyroxine (SYNTHROID) 75 mcg tablet Take 1 tablet by mouth daily 5 days per week. Take 1.5 tablets by mouth daily 2 days per week. Take in the morning on an empty stomach. [address] (PROTONIX) 40 mg tablet Take 1 tablet by mouth once daily. 30 tablet 5 budesonide-formoterol (SYMBICORT) 80-4.5 mcg/actuation inhaler Inhale 2 Puffs as instructed twice daily. 14 g 2 albuterol HFA (PROVENTIL HFA, VENTOLIN HFA) 90 mcg/actuation inhaler Inhale 2 Puffs as instructed every 4 hours as needed. 18 g 1 cholecalciferol (VITAMIN D3) 50 mcg (2,000 unit) tablet Take 1 tablet by mouth once daily. 90 tablet 3 Calcium-Cholecalciferol, D3, 600 mg-10 mcg (400 unit) cap Take 1 capsule by mouth once daily. 90 capsule 3 loratadine (CLARITIN) 10 mg tablet Take 1 tablet by mouth once daily. 30 tablet 11 Blood Pressure Monitor (BLOOD PRESSURE KIT) 1 Each once daily. 1 Kit 0 CPAP Initiate CPAP @ 10 cm of water with humidification. Mask (per patient preference) optional chin strap (if indicated) , filters, tubing, humidifier and lifetime supplies. 1 Device 0 COMPOUNDED PRESCRIPTION CPAP Supplies; hose; mask DX: HSAINA 1 Each 0 multivitamins(DAILY VITAMIN TAB) Take one(1) tablet daily. 0 Current Facility-Administered Medications Medication Dose Route Frequency Provider Last Rate Last Admin perflutren lipid microspheres 1.3 mL in NaCl (PF) 0.9% 10 mL injection (DEFINITY) INTRAVENOUS DIRECTED PRN Adia Robles, AYLIN.JENA sodium chloride 0.9 % (flush) 10 mL (BD POSIFLUSH) 10 mL INTRAVENOUS DIRECTED PRN Adia Robles, AYLIN.FLANGING ROLL OPERATOR ALLERGIES Allergen Reactions Prozac [Fluoxetine * Other: See Comments Aggressive behavior, emotional FAMILY HISTORY Liver Problems: No FAMILY HISTORY Problem Relation Age of Onset other (FIBROMYALGIA) Mother Lipids Father Ischemic Heart Disease Father Heart Father GA has hole in heart Stroke Father Diabetes Father Stroke Maternal Grandmother Alzheimer's Disease Maternal Grandmother Psychiatry Maternal Grandmother DEMENTIA Breast Cancer Maternal Grandmother Diabetes Other pcousin Heart Sister Hole in heart Thyroid Sister Allergies No Family History Asthma No Family History GI SPECIFIC ROS Filling up quickly at meals: No Loss of appetite: No Nausea: No Vomiting: No Abdominal pain: Intermittent RUQ pain Recent change in bowel movements: No Bloody or black, bowel movements: No Constipation: Yes Diarrhea: No Loss of control of bowel movements: No Thought or memory problems: No Fluid in abdomen (ascites): No Prominent leg swelling: No Vomiting blood: No Recent change in weight: No PHYSICAL EXAMINATION LMP 11/16/2009 General Appearance: Well appearing, alert, in no acute distress, well-hydrated, well nourished. Obese. Eyes: no scleral icterus Abdomen: not distended, soft and depressible, no guarding or rebound, no palpable mass, no organomegaly Extremities: no cyanosis or edema Skin: no jaundice, no spider angiomas, no palmar erythema Neuro:alert, oriented x 3, pleasant and in no acute distress Recent Labs: Hemoglobin (g/dL) Date Value 12/15/2022 14.3 07/30/2020 13.8 Hematocrit (%) Date Value 12/15/2022 43.0 07/30/2020 42.4 WBC (k/uL) Date Value 12/15/2022 8.40 07/30/2020 6.80 Glucose (mg/dL) Date Value 12/15/2022 85 07/30/2020 100 Potassium (mmol/L) Date Value 12/15/2022 4.3 07/30/2020 3.6 Sodium (mmol/L) Date Value 12/15/2022 140 07/30/2020 139 Chloride (mmol/L) Date Value 12/15/2022 100 07/30/2020 97 CO2 (mmol/L) Date Value 12/15/2022 27 07/30/2020 30 Creatinine (mg/dL) Date Value 12/15/2022 0.96 07/30/2020 0.83 BUN (mg/dL) Date Value 12/15/2022 15 07/30/2020 11 Anion Gap (mmol/L) Date Value 12/15/2022 13 07/30/2020 12 Calcium (mg/dL) Date Value 07/30/2020 9.6 Calcium, Total (mg/dL) Date Value 12/15/2022 10.1 Albumin (g/dL) Date Value 12/15/2022 4.6 Bilirubin, Total (mg/dL) Date Value 12/15/2022 0.3 Bilirubin, Conjug (mg/dL) Date Value 12/01/2015 <0.2 Alkaline Phosphatase (U/L) Date Value 12/15/2022 79 AST (U/L) Date Value 12/15/2022 43 (H) ALT (U/L) Date Value 12/15/2022 51 (H) Protein, Total (g/dL) Date Value 12/15/2022 7.8 Computed MELD 3.0 unavailable. Necessary lab results were not found in the last year. Computed MELD-Na unavailable. Necessary lab results were not found in the last year. Assessment IMPRESSION Ronnie Katz is a 52 year old year old female with PMHx hypercholesterolemia, SHAINA, depression, genital herpes, leukocytoclastic vasculitis who presents with elevated liver enzymes and concern for advanced hepatic fibrosis. She does have hx of hepatic steatosis on imaging with most recent Fibroscan indicating concern for advanced fibrosis given kpa 15.4. She does have preserved synthetic function at this time, and if truly cirrhotic, appears well compensated. Discussed liver biopsy benefit versus continuing to monitor with MELD labs and imaging [id number]. Will perform serologic evaluation today for etiology although MASH likely. Discussed MASH and risk factors, its progression, and ideal weight loss of 10% along with complete ETOH cessation. PLAN Elevated LFTs with concern for advanced hepatic fibrosis: - Fibroscan with CAP 308, kpa 15.4, IQR 19% - likely r/t MASLD /MASH - serologic evaluation - discussed role of liver biopsy for more definitive fibrosis staging versus MELD labs and imaging Q6 months.To be discussed at next visit EV: - will hold off EGD screening at this time given patient's ambivalence at this time. Advised to further discuss at next visit. Ascites: - continue Lasix 40 mg daily per PCP for LLE. <2,000mg Na diet. HE: - High protein diet. HCC screening: - UTD with RUQ US 12/2022 with increased echogenicity. No hepatic lesin noted RUQ abd pain: - hx of cholelithiasis - refer to general surgery Return to office in 1 months for results review. During this patient visit I have spent approximately 30 minutes out of 30 in counseling regarding test results and coordinating care. Candy Pabon APRN.CNP January 26, 2023 6:59 AM documented in this encounter [facility] 01-10-2023 Miscellaneous Notes Last office visit: 01/06/23 F/u scheduled: Do Vogt Ma documented in this encounter [facility] 01-10-2023 Miscellaneous Notes NAYELY--01/06/23 NOV--04/07/23 LAST REFILL--04/07/22 90 WITH 3 REFILLS LAST LABS-12/15/22- documented in this encounter [facility] 12-31-2022 Miscellaneous Notes Spoke with pt and information listed below given. Pt verbalizes understanding. Ronnie kAhtar LPN Transferred to manager business management. Left message to return call. Please let Ronnie know I received her ultrasound results. It does continue to show a fatty liver. I'm ordering a fibroscan to look at the extent of the fatty liver. Please assist her to schedule. Adia Robles APRN.JENA documented in this encounter [facility] 12-28-2022 History of Presen t illness Narrative Radiology Service Progress Note PATIENT NAME: Ronnie Katz DATE OF SERVICE: December 28, 2022 TIME: 2:54 PM PATIENT IDENTITY VERIFICATION COMPLETED USING TWO (2) IDENTIFIERS: Name and Date of confirmed by patient verbally. FALL SCREENING: Has the patient had 2 falls in the last year or 1 fall with injury or currently using an Ambulatory Assistive Device (Walker, Cane, Wheelchair, Crutches, etc.)? No PATIENT GENDER DATA: Female. status: : No status: NO. PATIENT RELEVANT IMPLANT DATA REVIEWED: Not Applicable RADIOLOGY DEPARTMENT: Ultrasound PERIPHERAL IV DATA: Not applicable SIGNED BY: Katrin Garcia RDMS RVT December 28, 2022 2:54 PM documented in this encounter [facility] 12-22-2022 Telephone encounter Note 1st attempt: LVM for patient to schedule Echo [facility] 12-22-2022 Miscellaneous Notes 1st attempt: LVM for patient to schedule Echo Order placed for ECHO, please schedule Stanley Sweeney DO Patient called to schedule her Echo, I tried to schedule it but it said the order is . Could you put in another order for it? Thank you! documented in this encounter [facility] 12-22-2022 Telephone encounter Note Order placed for ECHO, please schedule Stanley Sweeney DO [facility] 12-21-2022 Telephone encounter Note Patient called to schedule her Echo, I tried to schedule it but it said the order is . Could you put in another order for it? Thank you! [facility] 12-21-2022 Miscellaneous Notes .Left detailed message on a secured voicemail. Roxy Duron Patient was negative for flu RSV and COVID. Please notify thank you documented in this encounter [facility] 12-20-2022 History of Presen t illness Narrative Radiology Service Progress Note PATIENT NAME: Ronnie Katz DATE OF SERVICE: December 20, 2022 TIME: 6:56 PM PATIENT IDENTITY VERIFICATION COMPLETED USING TWO (2) IDENTIFIERS: Name and Date of confirmed by patient verbally. FALL SCREENING: Has the patient had 2 falls in the last year or 1 fall with injury or currently using an Ambulatory Assistive Device (Walker, Cane, Wheelchair, Crutches, etc.)? No PATIENT GENDER DATA: Female. status: : No status: NO. PATIENT RELEVANT IMPLANT DATA REVIEWED: Not Applicable RADIOLOGY DEPARTMENT: General X-ray: Exam(s) Completed: Chest X-Ray PERIPHERAL IV DATA: Not applicable SIGNED BY: RT Estefani(R) December 20, 2022 6:56 PM documented in this encounter [facility] 12-20-2022 History of Presen t illness Narrative CC: Patient presents with: Chest Congestion: cough x 5 days HPI: Ronnie Katz is a 52 year old female who presents to the office with complaint of cough, productive for a few days. Symptoms are staying the same. Associated symptoms includes cough. Denies fever, nausea, vomiting , and diarrhea. Treatments tried include nothing so far. with no relief of symptoms. Sick contacts: unknown. History of asthma, frequent episodes of bronchitis, chronic bronchitis, bronchiectasis or COPD: asthma Smoker: No Seasonal/environmental allergies: No The ROS is otherwise negative. The patient's pmh, medications, allergies, and past visits are reviewed. PHYSICAL EXAM: BP 122/84 Pulse 96 Temp 36.8 C (98.3 F) Resp 18 Wt 120.2 kg (265 lb) LMP 11/16/2009 SpO2 96% BMI 45.80 kg/m General appearance: alert, cooperative, pleasant, in no acute distress Head: Normocephalic Eyes: EOM's intact, conjunctiva pink and moist, no icterus, sclera white, non-injected Ears: Right ear: External ear/canal- Normal, TM - clear with good landmarks. Left ear: External ear/canal- Normal, TM - clear with good landmarks Oropharynx:moist without lesions, No erythema, exudates or tonsillar hypertrophy. Heart: Negative. RRR without obvious murmur, gallop, or rubs. No ectopy. Lungs: clear to auscultation, without rales or wheeze, good air exchange PAST MEDICAL HISTORY Diagnosis Date Diastasis of rectus abdominis 12/11/2015 Dysthymic disorder Depression (non-psychotic) Environmental allergies Spring worse. Genital herpes, unspecified 01/09/2007 HSV (herpes simplex virus) anogenital infection 1990 Hypercholesteremia 05/2015 Leukocytoclastic vasculitis (HCC) 2012 dx by Aliyah Wallace Onychomycosis SHAINA (obstructive sleep apnea) 04/13/2017 Persistent asthma without complication 06/12/2018 + JADA 06/2018, chronic cough, abnormal RAST. PAST SURGICAL HISTORY Procedure Laterality Date APPENDECTOMY NEUROPLASTY &/TRANSPOS MEDIAN NRV CARPAL TUNNE Right 09/13/2016 THYROID LEFT FINE NEEDLE ASPIRATION 08/02/07 U/ S FNA left thyroid nodule TOTAL THYROID LOBECTOMY UNI W/WO ISTHMUSECTOMY 08/31/07 LEFT VAGINAL HYSTERECTOMY UTERUS 250 GM/< 12/01/09 TVH for fibroid, menorrhagia, adenomyosis ALLERGIES Prozac [Fluoxetine Hcl] MEDICATIONS venlafaxine ER (EFFEXOR XR) 150 mg 24 hr capsule^Take 1 capsule by mouth once daily.^Disp: 90 capsule^Rfl: 1 venlafaxine ER (EFFEXOR XR) 75 mg 24 hr capsule^Take 1 capsule by mouth once daily.^Disp: 90 capsule^Rfl: 1 furosemide (LASIX) 40 mg tablet^Take 1 tablet by mouth twice daily^Disp: 60 tablet^Rfl: 0 levothyroxine (SYNTHROID) 75 mcg tablet^Take 1 tablet by mouth daily 5 days per week. Take 1.5 tablets by mouth daily 2 days per week. Take in the morning on an empty stomach.^Disp: 90 tablet^Rfl: [address] (PROTONIX) 40 mg tablet^Take 1 tablet by mouth once daily.^Disp: 30 tablet^Rfl: 5 budesonide-formoterol (SYMBICORT) 80-4.5 mcg/actuation inhaler^Inhale 2 Puffs as instructed twice daily.^Disp: 14 g^Rfl: 2 albuterol HFA (PROVENTIL HFA, VENTOLIN HFA) 90 mcg/actuation inhaler^Inhale 2 Puffs as instructed every 4 hours as needed.^Disp: 18 g^Rfl: 1 potassium chloride (K-TAB) 10 mEq tablet^Take 1 tablet by mouth daily with breakfast.^Disp: 90 tablet^Rfl: 1 cholecalciferol (VITAMIN D3) 50 mcg (2,000 unit) tablet^Take 1 tablet by mouth once daily.^Disp: 90 tablet^Rfl: 3 Calcium-Cholecalciferol, D3, 600 mg-10 mcg (400 unit) cap^Take 1 capsule by mouth once daily.^Disp: 90 capsule^Rfl: 3 traZODone (DESYREL) 50 mg tablet^Take 1 tablet by mouth daily at bedtime.^Disp: 90 tablet^Rfl: 3 loratadine (CLARITIN) 10 mg tablet^Take 1 tablet by mouth once daily.^Disp: 30 tablet^Rfl: 11 Blood Pressure Monitor (BLOOD PRESSURE KIT)^1 Each once daily.^Disp: 1 Kit^Rfl: 0 CPAP^Initiate CPAP @ 10 cm of water with humidification. Mask (per patient preference) optional chin strap (if indicated) , filters, tubing, humidifier and lifetime supplies.^Disp: 1 Device^Rfl: 0 COMPOUNDED PRESCRIPTION^CPAP Supplies; hose; mask DX: SHAINA^Disp: 1 Each^Rfl: 0 multivitamins(DAILY VITAMIN TAB)^Take one(1) tablet daily.^Disp: ^Rfl: 0 FAMILY HISTORY Problem Relation Age of Onset other (FIBROMYALGIA) Mother Lipids Father Ischemic Heart Disease Father Heart Father [place] has hole in heart Stroke Father Diabetes Father Stroke Maternal Grandmother Alzheimer's Disease Maternal Grandmother Psychiatry Maternal Grandmother DEMENTIA Breast Cancer Maternal Grandmother Diabetes Other pcousin Heart Sister Hole in heart Thyroid Sister Allergies No Family History Asthma No Family History Social History Tobacco Use Smoking status: Never Smokeless tobacco: Never Tobacco comments: No ETS in childhood or current home. Substance Use Topics Alcohol use: No Drug use: No ASSESSMENT/PLAN: 1. Acute cough - ICD9: 786.2, ICD10: R05.1 (primary diagnosis) - XR CHEST 2V FRONTAL/LAT * * * * Physician Interpretation * * * * EXAMINATION: CHEST RADIOGRAPH (2 VIEW FRONTAL & LATERAL) CLINICAL HISTORY: Acute cough MQ: [id number] EXAM DATE/TIME: 12/20/2022 7:03 PM COMPARISON: 12/15/2022 and 06/05/2019 RESULT: Lines, tubes, and devices: None. Lungs and pleura: No consolidation. No lung mass. No pleural effusion. No pneumothorax. Cardiomediastinal silhouette: Normal cardiomediastinal silhouette. Bones and soft tissues: Unremarkable. IMPRESSION IMPRESSION: No acute radiographic abnormality. In House Counsel: GABBY Transcribe Date/Time: Dec 20 2022 7:04P Dictated by : ROXANNE RODRIGES MD - COVID & INFLUENZA A/B & RSV NAAT, ROUTINE - COVID NAAT, ROUTINE - ROUTINE FLU A/B + RSV - PREDNISONE 10 MG TABLET 2. URI, acute - ICD9: 465.9, ICD10: J06.9 Prescription instructions reviewed with patient as applicable. Potential red flag symptoms discussed with the patient. Reviewed appropriate action plan to take if red flag symptoms occur. Patient agreeable to treatment plan. Sofy Frazier APRN.JENA documented in this encounter [facility] 12-15-2022 History of Presen t illness Narrative Radiology Service Progress Note PATIENT NAME: Ronnie Katz DATE OF SERVICE: December 15, 2022 TIME: 10:30 AM PATIENT IDENTITY VERIFICATION COMPLETED USING TWO (2) IDENTIFIERS: Name and Date of confirmed by patient verbally. FALL SCREENING: Has the patient had 2 falls in the last year or 1 fall with injury or currently using an Ambulatory Assistive Device (Walker, Cane, Wheelchair, Crutches, etc.)? No PATIENT GENDER DATA: Female. status: : No status: NO. PATIENT RELEVANT IMPLANT DATA REVIEWED: Not Applicable RADIOLOGY DEPARTMENT: General X-ray: Exam(s) Completed: Chest X-Ray Lower Extremity X-Ray(s): Foot, Bilateral and Wt. Bearing PERIPHERAL IV DATA: Not applicable SIGNED BY: RT Estefani(R) December 15, 2022 10:30 AM documented in this encounter [facility] 12-15-2022 Instructions Adia Robles APRN.JENA - 12/15/2022 9:52 AM EDT Schedule your echocardiogram. Have your labs drawn. Have your xrays done. Schedule with podiatry. documented in this encounter [facility] 12-15-2022 History of Presen t illness Narrative Chief Complaint Patient presents with: Pain (foot): Panda feet x 1 month HPI Ronnie Katz is a 52 year old female who presents here today for Above Complaints.. Today: Pain in both feet. Left one x1 month. Behind 2nd &3rd toe. Has tried biofreze. Feels swollen. Tried a silicone pad and this caused blisters. Medial heel with pain and swelling. Right foot with exact same kind of pain-has been going on for about a week. Has tried compression socks and new shoes-nothing has helped. No injury to either foot. Has never had these pains before. Past medical history, appointments, medications, allergies reviewed. Previous Medical History PAST MEDICAL HISTORY Diagnosis Date Diastasis of rectus abdominis 12/11/2015 Dysthymic disorder Depression (non-psychotic) Environmental allergies spring. Genital herpes, unspecified 01/09/2007 HSV (herpes simplex virus) anogenital infection 1990 Hypercholesteremia 05/2015 Leukocytoclastic vasculitis (HCC) 2012 dx by Aliyah Wallace Onychomycosis SHAINA (obstructive sleep apnea) 04/13/2017 Persistent asthma without complication 06/12/2018 + JADA 06/2018, chronic cough, abnormal RAST. Previous Surgical History PAST SURGICAL HISTORY Procedure Laterality Date APPENDECTOMY NEUROPLASTY &/TRANSPOS MEDIAN NRV CARPAL TUNNE Right 09/13/2016 THYROID LEFT FINE NEEDLE ASPIRATION 08/02/07 U/ S FNA left thyroid nodule TOTAL THYROID LOBECTOMY UNI W/WO ISTHMUSECTOMY 08/31/07 LEFT VAGINAL HYSTERECTOMY UTERUS 250 GM/< 12/01/09 TVH for fibroid, menorrhagia, adenomyosis Family History FAMILY HISTORY Problem Relation Age of Onset other (FIBROMYALGIA) Mother Lipids Father Ischemic Heart Disease Father Heart Father [place] has hole in heart Stroke Father Diabetes Father Stroke Maternal Grandmother Alzheimer's Disease Maternal Grandmother Psychiatry Maternal Grandmother DEMENTIA Breast Cancer Maternal Grandmother Diabetes Other pcousin Heart Sister Hole in heart Thyroid Sister Allergies No Family History Asthma No Family History Patient Allergies ALLERGIES Allergen Reactions Prozac [Fluoxetine * Other: See Comments Aggressive behavior, emotional Current Medications Current Outpatient Medications on File Prior to Visit Medication Sig venlafaxine ER (EFFEXOR XR) 150 mg 24 hr capsule Take 1 capsule by mouth once daily. venlafaxine ER (EFFEXOR XR) 75 mg 24 hr capsule Take 1 capsule by mouth once daily. furosemide (LASIX) 40 mg tablet Take 1 tablet by mouth twice daily levothyroxine (SYNTHROID) 75 mcg tablet Take 1 tablet by mouth daily 5 days per week. Take 1.5 tablets by mouth daily 2 days per week. Take in the morning on an empty stomach. pantoprazole DR (PROTONIX) 40 mg tablet Take 1 tablet by mouth once daily. albuterol HFA (PROVENTIL HFA, VENTOLIN HFA) 90 mcg/actuation inhaler Inhale 2 Puffs as instructed every 4 hours as needed. potassium chloride (K-TAB) 10 mEq tablet Take 1 tablet by mouth daily with breakfast. cholecalciferol (VITAMIN D3) 50 mcg (2,000 unit) tablet Take 1 tablet by mouth once daily. Calcium-Cholecalciferol, D3, 600 mg-10 mcg (400 unit) cap Take 1 capsule by mouth once daily. traZODone (DESYREL) 50 mg tablet Take 1 tablet by mouth daily at bedtime. loratadine (CLARITIN) 10 mg tablet Take 1 tablet by mouth once daily. Blood Pressure Monitor (BLOOD PRESSURE KIT) 1 Each once daily. CPAP Initiate CPAP @ 10 cm of water with humidification. Mask (per patient preference) optional chin strap (if indicated) , filters, tubing, humidifier and lifetime supplies. COMPOUNDED PRESCRIPTION CPAP Supplies; hose; mask DX: SHAINA multivitamins(DAILY VITAMIN TAB) Take one(1) tablet daily. budesonide-formoterol (SYMBICORT) 80-4.5 mcg/actuation inhaler Inhale 2 Puffs as instructed twice daily. Current Facility-Administered Medications on File Prior to Visit Medication perflutren lipid microspheres 1.3 mL in NaCl (PF) 0.9% 10 mL injection (DEFINITY) sodium chloride 0.9 % (flush) 10 mL (BD POSIFLUSH) Social History Social History Tobacco Use Smoking status: Never Smokeless tobacco: Never Tobacco comments: No ETS in childhood or current home. Substance Use Topics Alcohol use: No Drug use: No Review of Symptoms REVIEW OF SYSTEMS See HPI, otherwise negative EXAM: BP 120/84 (BP Site: Left Arm, BP Position: Sitting, BP Cuff Size: Regular Adult) Pulse 89 Resp 16 Wt 118.4 kg (261 lb) LMP 11/16/2009 SpO2 96% BMI 45.11 kg/m General Appearance: Well appearing, alert, in no acute distress, well-hydrated, well nourished. and Morbidly obese. Skin: bilateral feet mildly cyanotic appearing, cool, good cap refill. Lungs: Lungs clear to auscultation. No wheezing, rhonchi, rales.. Heart: RRR without murmur, gallop, or rubs. No ectopy. Musculoskeletal: no swelling to either foot. Left foot-plantar surface tender in multiple places to touch. Right foot-tender to plantar surface of heel and mildly to pad of foot just below 2nd and 3rd toes. Peripheral Pulses: Normal. Health Maintenance List HEPATITIS B(1 of 3 - 3-dose series) Never done COVID-19 VACCINE(1) Never done PNEUMOCOCCAL(1 - PCV) Never done COLORECTAL CANCER SCREENING Never done SHINGRIX VACCINE(1 of 2) Never done INFLUENZA(1) due on 12/10/2022 MAMMOGRAM due on 05/17/2023 ANNUAL PCP TEAM CHRONIC DISEASE VISIT due on 06/24/2023 DIABETES SCREEN due on 11/14/2024 DTAP,TDAP,TD(2 - Td or Tdap) due on 01/16/2025 LIPID SCREEN due on 11/14/2026 SPIROMETRY Completed HEPATITIS C SCREENING Completed HIV SCREENING Completed PAP TESTING Discontinued HPV TESTING Discontinued Data reviewed Previous records, office notes ASSESSMENT/PLAN: 1. Foot pain, bilateral - ICD9: 729.5, ICD10: M79.671, M79.672 (primary diagnosis) PVRs bilaterally. R/o DM, do not suspect. Labs. Consult podiatry for assessment and possible shoe inserts. - HGB A1C - CBC - XR FOOT GENERAL 3V AP/LAT/OBL BILATERAL - CONSULT TO PODIATRY - PVR ANK PRESS PANDA VAS LAB - MAGNESIUM BLD 2. Bilateral cold feet - ICD9: 782.9, ICD10: R20.9 PVRs bilaterally. R/o DM, do not suspect. Labs. Consult podiatry for assessment and possible shoe inserts. - CBC - XR FOOT GENERAL 3V AP/LAT/OBL BILATERAL - CONSULT TO PODIATRY - PVR ANK PRESS PANDA VAS LAB - MAGNESIUM BLD 3. Cramping of feet - ICD9: 729.82, ICD10: R25.2 PVRs bilaterally. R/o DM, do not suspect. Labs. Consult podiatry for assessment and possible shoe inserts. - CBC - XR FOOT GENERAL 3V AP/LAT/OBL BILATERAL - CONSULT TO PODIATRY - PVR ANK PRESS PANDA VAS LAB - MAGNESIUM BLD 4. SOB (shortness of breath) on exertion - ICD9: 786.05, ICD10: R06.02 Chronic. Negative previous pulmonary work up. - XR CHEST 2V FRONTAL/LAT 5. Hypokalemia - ICD9: 276.8, ICD10: E87.6 - CBC - COMP METABOLIC PANEL 6. 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 Vitamin D insufficiency - ICD9: 268.9, ICD10: E55.9 - CBC Adia Robles APRN.FLANGING ROLL OPERATOR documented in this encounter [facility] 12-14-2022 Miscellaneous Notes Patient has been identified by name and date of : Yes Requested Prescriptions Pending Prescriptions Disp Refills venlafaxine ER (EFFEXOR XR) 150 mg 24 hr capsule 90 capsule 1 Sig: Take 1 capsule by mouth once daily. venlafaxine ER (EFFEXOR XR) 75 mg 24 hr capsule 90 capsule 1 Sig: Take 1 capsule by mouth once daily. RX INSTRUCTIONS: Patient aware RX will be sent to pharmacy. No need to notify patient. Patient last office visit: 06/23/22 Patient next office visit: 12/15/22 Ashley Yancey MA documented in this encounter [facility] 09-27-2022 Miscellaneous Notes Still have pt's script for c-pap sitting at my desk as of yet pt has not returned call to let us know where to fax. Left another message on her voice mail to call let us know. Left message asking what [employer] company would like her script for cpap to go to. Left message to return call. Will keep script at desk until pt calls back. documented in this encounter [facility] 07-07-2022 Miscellaneous Notes Patient phones requesting refills as follows: Requested Prescriptions Pending Prescriptions Disp Refills pantoprazole DR (PROTONIX) 40 mg tablet 30 tablet 5 Sig: Take 1 tablet by mouth once daily. NAYELY-06/23/22 Labs-11/14/21 NOV-none med filled 11/02/21 Please review and advise. Cristiane Davis LPN documented in this encounter [facility] 07-02-2022 Instructions Katrin Ceballos APRN.JENA - 07/02/2022 10:41 AM EDT PREVENTION AND TREATMENT OF CONSTIPATION Constipation is a common problem but can be aggravated by inactivity or certain medications. Pain medications, particularly narcotic pain medicines, commonly cause dry mouth and constipation. The following can be useful in preventing constipation: FOODS Prunes or prune juice. Apple juice Foods containing bran such as cereals or muffins. Bran can also be purchased from [employer] stores and sprinkled on foods such as cereals. Suggested Bulk agent/ stool softeners Colace, 100 mg tablets 2-3 times per day. Once constipation develops (i.e., no bowel movement for 2 - 3 days) then begin the following measures: Milk of Magnesia, 2 TBSP at bedtime If no results are obtained then use either: 1 Glycerine or Dulcolax Suppository or 1/2 to 1 bottle of Magnesium Citrate If none of the above measures are successful, then one or more of the following measures may be necessary. Fleet's Enema Contact your PCP office if these measures are unsuccessful or if any persistent abdominal pain or cramping develops. documented in this encounter [facility] 07-02-2022 History of Presen t illness Narrative Radiology Service Progress Note PATIENT NAME: Ronnie Katz DATE OF SERVICE: July 02, 2022 TIME: 10:31 AM PATIENT IDENTITY VERIFICATION COMPLETED USING TWO (2) IDENTIFIERS: Name and Date of confirmed by patient verbally. FALL SCREENING: Has the patient had 2 falls in the last year or 1 fall with injury or currently using an Ambulatory Assistive Device (Walker, Cane, Wheelchair, Crutches, etc.)? No PATIENT GENDER DATA: Female. status: : No status: NO. PATIENT RELEVANT IMPLANT DATA REVIEWED: Not Applicable RADIOLOGY DEPARTMENT: General X-ray: Exam(s) Completed: Abdomen X-Ray: Abdomen PERIPHERAL IV DATA: Not applicable SIGNED BY: RT Estefani(R) July 02, 2022 10:31 AM documented in this encounter [facility] 07-02-2022 History of Presen t illness Narrative This note was created using [employer]. Subjective Ronnie Katz is a 51 year old female. 51 year old female with PMH hyperlipidemia, sleep apnea, asthma, acid reflex, and history of constipation presents for complaints of constipation. Acute onset 4 days ago States last bowel movement 2 days ago. Endorses difficult and straining with that bowel movement. +feelings of bloating. +nausea Denies emesis. Denies fever or chills. States she has had a history of same in past. Has used FiberCon, spicy food, corn, broccoli, The history is provided by the patient. No language arts teacher was used. Constipation This is a new problem. The current episode started more than 2 days ago. Associated symptoms include abdominal pain and flatus. There is Fiber in the patient's diet. She Does not exercise regularly. There has Been adequate water intake. Treatments tried: fiber con. The treatment provided no relief. Risk factors include obesity. Her past medical history is significant for endocrine disease. Her past medical history does not include metabolic disease, irritable bowel syndrome, neurologic disease or neuromuscular disease. PAST MEDICAL HISTORY Diagnosis Date Diastasis of rectus abdominis 12/11/2015 Dysthymic disorder Depression (non-psychotic) Environmental allergies Spring worse. Genital herpes, unspecified 01/09/2007 HSV (herpes simplex virus) anogenital infection 1990 Hypercholesteremia 05/2015 Leukocytoclastic vasculitis (HCC) 2012 dx by Aliyah Wallace Onychomycosis SHAINA (obstructive sleep apnea) 04/13/2017 Persistent asthma without complication 06/12/2018 + JADA 06/2018, chronic cough, abnormal RAST. PAST SURGICAL HISTORY Procedure Laterality Date APPENDECTOMY NEUROPLASTY &/TRANSPOS MEDIAN NRV CARPAL TUNNE Right 09/13/2016 THYROID LEFT FINE NEEDLE ASPIRATION 08/02/07 U/ S FNA left thyroid nodule TOTAL THYROID LOBECTOMY UNI W/WO ISTHMUSECTOMY 08/31/07 LEFT VAGINAL HYSTERECTOMY UTERUS 250 GM/< 12/01/09 TVH for fibroid, menorrhagia, adenomyosis ALLERGIES Prozac [Fluoxetine Hcl] MEDICATIONS naproxen (NAPROSYN) 500 mg tablet^Take 1 tablet by mouth twice daily with meals for 14 days. Take with food.^Disp: 28 tablet^Rfl: 0 budesonide-formoterol (SYMBICORT) 80-4.5 mcg/actuation inhaler^Inhale 2 Puffs as instructed twice daily.^Disp: 14 g^Rfl: 2 venlafaxine ER (EFFEXOR XR) 150 mg 24 hr capsule^Take 1 capsule by mouth once daily.^Disp: 90 capsule^Rfl: 1 venlafaxine ER (EFFEXOR XR) 75 mg 24 hr capsule^Take 1 capsule by mouth once daily.^Disp: 90 capsule^Rfl: 1 albuterol HFA (PROVENTIL HFA, VENTOLIN HFA) 90 mcg/actuation inhaler^Inhale 2 Puffs as instructed every 4 hours as needed.^Disp: 18 g^Rfl: 1 levothyroxine (SYNTHROID) 75 mcg tablet^Take 1 tablet by mouth daily 5 days per week. Take 1.5 tablets by mouth daily 2 days per week. Take in the morning on an empty stomach.^Disp: 90 tablet^Rfl: 1 potassium chloride (K-TAB) 10 mEq tablet^Take 1 tablet by mouth daily with breakfast.^Disp: 90 tablet^Rfl: 1 cholecalciferol (VITAMIN D3) 50 mcg (2,000 unit) tablet^Take 1 tablet by mouth once daily.^Disp: 90 tablet^Rfl: 3 Calcium-Cholecalciferol, D3, 600 mg-10 mcg (400 unit) cap^Take 1 capsule by mouth once daily.^Disp: 90 capsule^Rfl: 3 furosemide (LASIX) 40 mg tablet^Take 1 tablet by mouth twice daily.^Disp: 60 tablet^Rfl: 0 traZODone (DESYREL) 50 mg tablet^Take 1 tablet by mouth daily at bedtime.^Disp: 90 tablet^Rfl: [address] (PROTONIX) 40 mg tablet^Take 1 tablet by mouth once daily.^Disp: 30 tablet^Rfl: 5 loratadine (CLARITIN) 10 mg tablet^Take 1 tablet by mouth once daily.^Disp: 30 tablet^Rfl: 11 Blood Pressure Monitor (BLOOD PRESSURE KIT)^1 Each once daily.^Disp: 1 Kit^Rfl: 0 CPAP^Initiate CPAP @ 10 cm of water with humidification. Mask (per patient preference) optional chin strap (if indicated) , filters, tubing, humidifier and lifetime supplies.^Disp: 1 Device^Rfl: 0 COMPOUNDED PRESCRIPTION^CPAP Supplies; hose; mask DX: SHAINA^Disp: 1 Each^Rfl: 0 multivitamins(DAILY VITAMIN TAB)^Take one(1) tablet daily.^Disp: ^Rfl: 0 FAMILY HISTORY Problem Relation Age of Onset other (FIBROMYALGIA) Mother Lipids Father Ischemic Heart Disease Father Heart Father GA has hole in heart Stroke Father Diabetes Father Stroke Maternal Grandmother Alzheimer's Disease Maternal Grandmother Psychiatry Maternal Grandmother DEMENTIA Breast Cancer Maternal Grandmother Diabetes Other pcousin Heart Sister Hole in heart Thyroid Sister Allergies No Family History Asthma No Family History Social History Tobacco Use Smoking status: Never Smokeless tobacco: Never Tobacco comments: No ETS in childhood or current home. Substance Use Topics Alcohol use: No Drug use: No Review of Systems Constitutional: Negative for activity change, appetite change, fatigue and fever. Eyes: Negative for photophobia, discharge, redness, itching and visual disturbance. Respiratory: Negative for apnea, cough, choking and chest tightness. Cardiovascular: Negative for chest pain, palpitations and leg swelling. Gastrointestinal: Positive for abdominal pain, constipation and flatus. Negative for diarrhea, nausea and vomiting. Musculoskeletal: Negative for arthralgias and back pain. Skin: Negative for color change, pallor and rash. Allergic/Immunologic: Negative for environmental allergies, food allergies and immunocompromised state. Neurological: Negative for dizziness, facial asymmetry, light-headedness and headaches. Hematological: Negative for adenopathy. Does not bruise/bleed easily. Psychiatric/Behavioral: Negative for agitation and behavioral problems. Objective BP 128/74 Pulse 76 Temp 36.6 C (97.9 F) (Tympanic) Resp 18 Wt 116.2 kg (256 lb 3.2 oz) LMP 11/16/2009 SpO2 98% BMI 44.28 kg/m Physical Exam Vitals and nursing note reviewed. Constitutional: General: She is not in acute distress. Appearance: Normal appearance. She is obese. She is not ill-appearing, toxic-appearing or diaphoretic. HENT: Head: Normocephalic and atraumatic. Right Ear: Ear canal and external ear normal. Left Ear: Ear canal and external ear normal. Nose: Nose normal. No congestion or rhinorrhea. Mouth/Throat: Mouth: Mucous membranes are moist. Pharynx: No oropharyngeal exudate or posterior oropharyngeal erythema. Eyes: General: Right eye: No discharge. Left eye: No discharge. Extraocular Movements: Extraocular movements intact. Conjunctiva/sclera: Conjunctivae normal. Pupils: Pupils are equal, round, and reactive to light. Cardiovascular: Rate and Rhythm: Normal rate and regular rhythm. Pulses: Normal pulses. Heart sounds: Normal heart sounds. No murmur heard. No friction rub. Pulmonary: Effort: Pulmonary effort is normal. No respiratory distress. Breath sounds: Normal breath sounds. No stridor. No wheezing, rhonchi or rales. Chest: Chest wall: No tenderness. Abdominal: General: Abdomen is flat. Bowel sounds are normal. There is no distension. Palpations: Abdomen is soft. There is no mass. Tenderness: There is no abdominal tenderness. There is no right CVA tenderness, left CVA tenderness, guarding or rebound. Hernia: No hernia is present. Musculoskeletal: General: No swelling, tenderness, deformity or signs of injury. Normal range of motion. Cervical back: Normal range of motion and neck supple. No rigidity. Right lower leg: No edema. Left lower leg: No edema. Lymphadenopathy: Cervical: No cervical adenopathy. Skin: General: Skin is warm and dry. Coloration: Skin is not jaundiced or pale. Findings: No bruising, erythema, lesion or rash. Neurological: General: No focal deficit present. Mental Status: She is alert and oriented to person, place, and time. Cranial Nerves: No cranial nerve deficit. Sensory: No sensory deficit. Motor: No weakness. Coordination: Coordination normal. Gait: Gait normal. Psychiatric: Mood and Affect: Mood normal. Behavior: Behavior normal. Thought Content: Thought content normal. Judgment: Judgment normal. Assessment and Plan ASSESSMENT/PLAN: 1. Acute constipation - ICD9: 564.00, ICD10: K59.00 X 4 days No red flags Bowel sounds x 4 - XR ABDOMEN 1V SUPINE-nonobstructive bowel gas pattern Patient will flower picker Mg Citrate today along with Colace Work note provided. Follow up with Dr. Sweeney if no relief of symptoms. Red flags discussed. Katrin Ceballos APRN.CNP documented in this encounter [facility] 06-23-2022 Instructions Adia Robles APRN.CNP - 06/23/2022 1:47 PM EDT Start symbicort instead of QVAR, let us know if the insurance copay is too much, but this shows as a covered medication Take your written prescription for new cpap settings to [facility] and get either a new machine or current machine adjusted and a new mask. Schedule your echocardiogram (ultrasound of your heart). Get scheduled with ENT for your hearing loss. documented in this encounter [facility] 06-23-2022 History of Presen t illness Narrative Chief Complaint Patient presents with: Follow Up: Spirometry & sleep study results HPI Ronnie Katz is a 51 year old female who presents here today for Above Complaints. Today: Has not reviewed sleep study results or spirometry results, would like to discuss. Has a cpap at home, she thinks from [employer], but settings she believes are at 10. Does need a new mask. Reports fatigue, doesn't feel like she gets enough sleep. Wakes up frequently but not fully awake. Doesn't report waking up short of breath. Has not started or taken the QVAR because it's copay is over $200. Does feel like she's less sob than previous visit, able to tolerate distances more but still has trouble with steps. Right elbow hit on gate at work about 1-2 weeks ago, increased pain with movement and after working all day gets very achy. Not taking anything for it. Left upper chest discomfort started today, almost like a pressure, doesn't recall injury or anything happening today to increase anxiety. Deeper breaths but not shortness of breath with it. Past medical history, appointments, medications, allergies reviewed. Previous Medical History PAST MEDICAL HISTORY Diagnosis Date Diastasis of rectus abdominis 12/11/2015 Dysthymic disorder Depression (non-psychotic) Environmental allergies spring. Genital herpes, unspecified 01/09/2007 HSV (herpes simplex virus) anogenital infection 1990 Hypercholesteremia 05/2015 Leukocytoclastic vasculitis (HCC) 2012 dx by Aliyah Wallace Onychomycosis SHAINA (obstructive sleep apnea) 04/13/2017 Persistent asthma without complication 06/12/2018 + JADA 06/2018, chronic cough, abnormal RAST. Previous Surgical History PAST SURGICAL HISTORY Procedure Laterality Date APPENDECTOMY NEUROPLASTY &/TRANSPOS MEDIAN NRV CARPAL TUNNE Right 09/13/2016 THYROID LEFT FINE NEEDLE ASPIRATION 08/02/07 U/ S FNA left thyroid nodule TOTAL THYROID LOBECTOMY UNI W/WO ISTHMUSECTOMY 08/31/07 LEFT VAGINAL HYSTERECTOMY UTERUS 250 GM/< 12/01/09 TVH for fibroid, menorrhagia, adenomyosis Family History FAMILY HISTORY Problem Relation Age of Onset other (FIBROMYALGIA) Mother Lipids Father Ischemic Heart Disease Father Heart Father [place] has hole in heart Stroke Father Diabetes Father Stroke Maternal Grandmother Alzheimer's Disease Maternal Grandmother Psychiatry Maternal Grandmother DEMENTIA Breast Cancer Maternal Grandmother Diabetes Other pcousin Heart Sister Hole in heart Thyroid Sister Allergies No Family History Asthma No Family History Patient Allergies ALLERGIES Allergen Reactions Prozac [Fluoxetine * Other: See Comments Aggressive behavior, emotional Current Medications Current Outpatient Medications on File Prior to Visit Medication Sig venlafaxine ER (EFFEXOR XR) 150 mg 24 hr capsule Take 1 capsule by mouth once daily. venlafaxine ER (EFFEXOR XR) 75 mg 24 hr capsule Take 1 capsule by mouth once daily. beclomethasone (QVAR REDIHALER) 80 mcg/actuation inhaler Inhale 2 Puffs as instructed twice daily. albuterol HFA (PROVENTIL HFA, VENTOLIN HFA) 90 mcg/actuation inhaler Inhale 2 Puffs as instructed every 4 hours as needed. levothyroxine (SYNTHROID) 75 mcg tablet Take 1 tablet by mouth daily 5 days per week. Take 1.5 tablets by mouth daily 2 days per week. Take in the morning on an empty stomach. potassium chloride (K-TAB) 10 mEq tablet Take 1 tablet by mouth daily with breakfast. cholecalciferol (VITAMIN D3) 50 mcg (2,000 unit) tablet Take 1 tablet by mouth once daily. Calcium-Cholecalciferol, D3, 600 mg-10 mcg (400 unit) cap Take 1 capsule by mouth once daily. furosemide (LASIX) 40 mg tablet Take 1 tablet by mouth twice daily. traZODone (DESYREL) 50 mg tablet Take 1 tablet by mouth daily at bedtime. pantoprazole DR (PROTONIX) 40 mg tablet Take 1 tablet by mouth once daily. loratadine (CLARITIN) 10 mg tablet Take 1 tablet by mouth once daily. Blood Pressure Monitor (BLOOD PRESSURE KIT) 1 Each once daily. CPAP Initiate CPAP @ 10 cm of water with humidification. Mask (per patient preference) optional chin strap (if indicated) , filters, tubing, humidifier and lifetime supplies. COMPOUNDED PRESCRIPTION CPAP Supplies; hose; mask DX: SHAINA multivitamins(DAILY VITAMIN TAB) Take one(1) tablet daily. No current facility-administered medications on file prior to visit. Social History Social History Tobacco Use Smoking status: Never Smokeless tobacco: Never Tobacco comments: No ETS in childhood or current home. Substance Use Topics Alcohol use: No Drug use: No Review of Symptoms REVIEW OF SYSTEMS See HPI, otherwise negative EXAM: BP 116/88 (BP Site: Left Arm, BP Position: Sitting, BP Cuff Size: Regular Adult) Pulse 80 Resp 16 Wt 115.2 kg (254 lb) LMP 11/16/2009 SpO2 97% BMI 43.90 kg/m General Appearance: Well appearing, alert, in no acute distress, well-hydrated, well nourished.. Lungs: Lungs clear to auscultation. No wheezing, rhonchi, rales.. Heart: RRR without murmur, gallop, or rubs. No ectopy. Musculoskeletal: pain with palpation of generalized elbow. No swelling or redness.. Peripheral Pulses: Normal. Health Maintenance List HEPATITIS B(1 of 3 - 3-dose series) Never done COVID-19 VACCINE(1) Never done PNEUMOCOCCAL(1 - PCV) Never done COLORECTAL CANCER SCREENING Never done SHINGRIX VACCINE(1 of 2) Never done INFLUENZA(1) due on 12/10/2021 ANNUAL PCP TEAM CHRONIC DISEASE VISIT due on 05/12/2023 MAMMOGRAM due on 05/17/2023 DIABETES SCREEN due on 11/14/2024 DTAP,TDAP,TD(2 - Td or Tdap) due on 01/16/2025 LIPID SCREEN due on 11/14/2026 SPIROMETRY Completed HEPATITIS C SCREENING Completed HIV SCREENING Completed PAP TESTING Discontinued HPV TESTING Discontinued Data reviewed Previous records, office notes ASSESSMENT/PLAN: 1. Chest pressure - ICD9: 786.59, ICD10: R07.89 (primary diagnosis) Do not suspect cardiac etiology. Echo ordered. Discussed red flag symptoms with patient. - ECHO - PERFLUTREN LIPID MICROSPHERES 1.1 MG/ML INJECTION IN NS 10 ML - SODIUM CHLORIDE 0.9 % (FLUSH) INJECTION SYRINGE 2. Chest pain, unspecified type - ICD9: 786.50, ICD10: R07.9 Do not suspect cardiac etiology. Echo ordered. Discussed red flag symptoms with patient. - ECHO - PERFLUTREN LIPID MICROSPHERES 1.1 MG/ML INJECTION IN NS 10 ML - SODIUM CHLORIDE 0.9 % (FLUSH) INJECTION SYRINGE 3. Shortness of breath - ICD9: 786.05, ICD10: R06.02 Do not suspect cardiac etiology. Echo ordered. Discussed red flag symptoms with patient. - ECHO - PERFLUTREN LIPID MICROSPHERES 1.1 MG/ML INJECTION IN NS 10 ML - SODIUM CHLORIDE 0.9 % (FLUSH) INJECTION SYRINGE 4. SHAINA (obstructive sleep apnea) - ICD9: 327.23, ICD10: G47.33 Order placed for CPAP and supplies 5. Mild persistent asthma without complication - ICD9: 493.90, ICD10: J45.30 Currently controlled. Stop Qvar, start Symbacort. - BUDESONIDE-FORMOTEROL HFA 80 MCG-4.5 MCG/ACTUATION AEROSOL INHALER - SODIUM CHLORIDE 0.9 % (FLUSH) INJECTION SYRINGE 6. Right elbow pain - ICD9: 719.42, ICD10: M25.521 RICE. - NAPROXEN 500 MG TABLET 7. Bilateral hearing loss, unspecified hearing loss type - ICD9: 389.9, ICD10: H91.93 - CONSULT TO ENT Adia Robles APRN.FLANGING ROLL OPERATOR TEACHING PROVIDER (Physician/PA/CONSULTING ACTUARY) NOTE OF PERSONAL INVOLVEMENT IN CARE: I have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 Supplies; hose; mask DX: SHAINA COMPOUNDED PRESCRIPTION Powerstep full length original Dx: plantar fasciitis multivitamins(DAILY VITAMIN TAB) Take one(1) tablet daily. Current Facility-Administered Medications on File Prior to Visit Medication perflutren lipid microspheres 1.3 mL in NaCl (PF) 0.9% 10 mL injection (DEFINITY) sodium chloride 0.9 % (flush) 10 mL (BD POSIFLUSH) Social History Social History Tobacco Use Smoking status: Never Smokeless tobacco: Never Tobacco comments: No ETS in childhood or current home. Substance Use Topics Alcohol use: No Drug use: No Review of Symptoms REVIEW OF SYSTEMS Previous records, office notes EXAM: BP 132/94 (BP Site: Left Arm, BP Position: Sitting, BP Cuff Size: Regular Adult) Pulse 96 Wt 113.9 kg (251 lb 3.2 oz) LMP 11/16/2009 SpO2 96% BMI 43.12 kg/m General Appearance: Well appearing, alert, in no acute distress, well-hydrated, well nourished. and Morbidly obese. Lungs: Lungs clear to auscultation. No wheezing, rhonchi, rales.. Heart: RRR without murmur, gallop, or rubs. No ectopy. Psychiatric: pleasant, cooperative, no SI/HI. Health Maintenance List HEPATITIS B(1 of 3 - 3-dose series) Never done COVID-19 VACCINE(1) Never done MAMMOGRAM due on 02/03/2022 COLORECTAL CANCER SCREENING due on 01/30/2022 SHINGRIX VACCINE(1 of 2) due on 01/30/2022 PNEUMOCOCCAL(1 - PCV) due on 01/30/2022 INFLUENZA(1) due on 12/10/2021 ANNUAL PCP TEAM CHRONIC DISEASE VISIT due on 2022 DIABETES SCREEN due on 11/14/2024 DTAP,TDAP,TD(2 - Td or Tdap) due on 01/16/2025 LIPID SCREEN due on 11/14/2026 SPIROMETRY Completed HEPATITIS C SCREENING Completed HIV SCREENING Completed PAP TESTING Discontinued HPV TESTING Discontinued Data reviewed Previous records, office notes ASSESSMENT/PLAN: 1. Anxiety with depression - ICD9: 300.4, ICD10: F41.8 (primary diagnosis) Continue current Effexor dose-is working well. Rx refill sent. 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 Recheck labs again in 8-12 weeks. - TSH BLD - T3 BLD - T4 FREE/FREE THYROX 3. Mixed hyperlipidemia - ICD9: 272.2, ICD10: E78.2 Overall improvement in recent lipid results. 4. Vitamin D deficiency - ICD9: 268.9, ICD10: E55.9 Continue current vitamin D3 supplementation. 5. Obesity, Class III, BMI 40-49.9 (morbid obesity) (HCC) - ICD9: 278.01, ICD10: E66.01 - HGB A1C 6. Elevated fasting glucose - ICD9: 790.21, ICD10: R73.01 - HGB A1C Adia Robles APRN.CNP Greater than 50% of 32-minute visit spent face to face with patient in counseling and education. documented in this encounter [facility] 11-19-2021 Miscellaneous Notes Please assist with scheduling appt Sandra Brennan Ma Patient has multiple abnormal labs, needs appt to review results- okay with Deisi or Mandy Sweeney DO documented in this encounter [facility] 11-03-2021 Miscellaneous Notes Patient notified and verbalized understanding Rachel Okeefe Cma Overdue for labs. No additional refills. The following approved medication requests have been transmitted electronically. Signed Prescriptions Disp Refills meloxicam (MOBIC) 15 mg tablet 30 tablet 0 Sig: Take 1 tablet by mouth once daily. PARK: No Authorizing Provider: RUBÉN YU V Ordering User: ADIA ROBLES APRN.CNP Patient phones requesting refills as follows: Pending Prescriptions Disp Refills MELOXICAM 15 MG TABLET 30 tablet 0 Sig: Take 1 tablet by mouth once daily. PARK: No LABS-08/21/21 Labs-09/12/21 NOV-none med filled 08/21/21 Please review and advise. Cristiane Davis LPN documented in this encounter [facility] 10-31-2021 Miscellaneous Notes Patient phones requesting refills as follows: Pending Prescriptions Disp Refills PANTOPRAZOLE 40 MG TABLET,DELAYED RELEASE 30 tablet 5 Sig: Take 1 tablet by mouth once daily. PARK: No NAYELY-08/21/21 Labs-09/12/21 NOV-none med filled 03/29/21 Please review and advise. Cristiane Davis LPN documented in this encounter [facility] 09-03-2021 Miscellaneous Notes Left this information on pts identified machine. Please remind patient to have potassium blood work drawn from Dec. Thank you, Deisi Greene APRN.JENA The following approved medication requests have been transmitted electronically. Signed Prescriptions Disp Refills calcium carbonate-vitamin D3 500 mg-15 mcg (600 unit) tab 60 tablet 1 Sig: Take 1 tablet by mouth twice daily. PARK: No Authorizing Provider: DEISI GREENE potassium chloride (K-TAB) 10 mEq tablet 30 tablet 0 Sig: Take 1 tablet by mouth daily with breakfast. PARK: No Authorizing Provider: DEISI GREENE APRN.CNP Patient phones requesting refills as follows: Pending Prescriptions Disp Refills CALCIUM CARBONATE 500 MG-VITAMIN D3 15 MCG (600 UNIT) TABLET 60 tablet 1 Sig: Take 1 tablet by mouth twice daily. PARK: No POTASSIUM CHLORIDE ER 10 MEQ TABLET,EXTENDED RELEASE 30 tablet 0 Sig: Take 1 tablet by mouth daily with breakfast. PARK: No NAYELY-01/30/21 Labs-10/01/20 NOV-none Please review and advise. Cristiane Davis LPN documented in this encounter [facility] 08-21-2021 Instructions Rubén Yu V, DO - 08/21/2021 2:39 PM EDT Thank you for choosing the [facility] for your acute care needs. [facility] treats minor infections, rashes and injuries. It is our mission for our patients to be healthy. A primary care relationship with the physician allows for continuity of care, counseling, and maintenance of preventive health care needs. Express [facility] does not replace the relationship or need for a primary care physician. 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 Hours: Tuesday through Tuesday 7:30 am to 7:00 pm. Tuesday and Tuesday: 8:00 am to 2:30 pm. documented in this encounter [facility] 08-21-2021 History of Presen t illness Narrative Tuan Oleary [address] [facility] [address] Ms. Katz is a 50 year old female that presents today complaining of knee problems bilaterally, L>R for the last 6 months. She claims that there is no specific incident that brought on this pain. The pain is described as chronic located in the front of the knee. Patient states that her pain level is a number 3 on a scale of 1-10 She states that the pain is the worst when she first stands and starts to walk. After a few steps it seems to feel little bit better. She feels popping and grinding in the knee under the kneecap with movement. ALLERGIES: Prozac [Fluoxetine Hcl] MEDICATIONS: Current Outpatient Medications Medication Sig loratadine (CLARITIN) 10 mg tablet Take 1 tablet by mouth once daily. potassium chloride (K-TAB) 10 mEq tablet Take 1 tablet by mouth once daily with breakfast traZODone (DESYREL) 50 mg tablet Take 1 tablet by mouth daily at bedtime. calcium carbonate-vitamin D3 500 mg-15 mcg (600 unit) tab Take 1 tablet by mouth twice daily. venlafaxine ER (EFFEXOR XR) 75 mg 24 hr capsule Take 1 capsule by mouth once daily. venlafaxine ER (EFFEXOR XR) 150 mg 24 hr capsule Take 1 capsule by mouth once daily. pantoprazole DR (PROTONIX) 40 mg tablet Take 1 tablet by mouth once daily. furosemide (LASIX) 40 mg tablet Take 1 tablet by mouth twice daily levothyroxine (SYNTHROID) 75 mcg tablet Take 1 tablet by mouth daily before breakfast. beclomethasone (QVAR REDIHALER) 80 mcg/actuation inhaler Inhale 2 Puffs as instructed twice daily. cholecalciferol (VITAMIN D3) 50 mcg (2,000 unit) tablet Take 1 tablet by mouth once daily. albuterol HFA (PROVENTIL HFA, VENTOLIN HFA) 90 mcg/actuation inhaler Inhale 2 Puffs as instructed every 4 hours as needed. Blood Pressure Monitor (BLOOD PRESSURE KIT) 1 Each once daily. CPAP Initiate CPAP @ 10 cm of water with humidification. Mask (per patient preference) optional chin strap (if indicated) , filters, tubing, humidifier and lifetime supplies. COMPOUNDED PRESCRIPTION CPAP Supplies; hose; mask DX: SHAINA COMPOUNDED PRESCRIPTION Powerstep full length original Dx: plantar fasciitis multivitamins(DAILY VITAMIN TAB) Take one(1) tablet daily. meloxicam (MOBIC) 15 mg tablet Take 1 tablet by mouth once daily. Current Facility-Administered Medications Medication Dose Route Frequency perflutren lipid microspheres 1.3 mL in NaCl (PF) 0.9% 10 mL injection (DEFINITY) INTRAVENOUS DIRECTED PRN sodium chloride 0.9 % (flush) 10 mL (BD POSIFLUSH) 10 mL INTRAVENOUS DIRECTED PRN MEDICAL HISTORY: PAST MEDICAL HISTORY Diagnosis Date Diastasis of rectus abdominis 12/11/2015 Dysthymic disorder Depression (non-psychotic) Environmental allergies Spring worse. 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 SURGICAL HISTORY: PAST SURGICAL HISTORY Procedure Laterality Date APPENDECTOMY NEUROPLASTY &/TRANSPOS MEDIAN NRV CARPAL TUNNE Right 09/13/2016 THYROID LEFT FINE NEEDLE ASPIRATION 08/02/07 U/ S FNA left thyroid nodule TOTAL THYROID LOBECTOMY UNI W/WO ISTHMUSECTOMY 08/31/07 LEFT VAGINAL HYSTERECTOMY UTERUS 250 GM/< 12/01/09 TVH for fibroid, menorrhagia, adenomyosis FAMILY HISTORY: FAMILY HISTORY Problem Relation Age of Onset other (FIBROMYALGIA) Mother Lipids Father Ischemic Heart Disease Father Heart Father GA has hole in heart Stroke Father Diabetes Father Stroke Maternal Grandmother Alzheimer's Disease Maternal Grandmother Psychiatry Maternal Grandmother DEMENTIA Breast Cancer Maternal Grandmother Diabetes Other pcousin Heart Sister Hole in heart Thyroid Sister Allergies No Family History Asthma No Family History SOCIAL HISTORY: Social History Tobacco Use Smoking status: Never Smoker Smokeless tobacco: Never Used Tobacco comment: No ETS in childhood or current home. Substance Use Topics Alcohol use: No Drug use: No PHYSICAL ASSESSMENT: The Pt walks with a normal gait B/l LE have Nl Alignment Right Knee Reveals No Effusion. 0-135 degrees of motion. No Abnormal Anterior, Posterior, Varus or Valgus Laxity. No Medial or Lateral Joint Line Tenderness. No pain with Direct Palpation over the Distal Medial or Lateral Femoral Condyles. Negative Yeni's Test. No pain with Patellar compression. The Left Knee Reveals Trace Effusion. 0-135 degrees of motion. No Abnormal Anterior, Posterior, Varus or Valgus Laxity. No Medial or Lateral Joint Line Tenderness. No pain with Direct Palpation over the Distal Medial or Lateral Femoral Condyles. Negative Yeni's Test. There is pain with patellar compression. 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 PLAN: Signed Prescriptions Disp Refills meloxicam (MOBIC) 15 mg tablet 30 tablet 0 Sig: Take 1 tablet by mouth once daily. Ryder toussaint knee brace to aid in patellar tracking Discussed further treatment options such as corticosteroid injection if symptoms do not improve Rubén Yu DO Patient presents with: Left Knee Pain AMB ROOMING INTAKE FLOWSHEET DATA Risk Screening Do you have concerns about personal safety or safety in the home?: No Pain Pain Level: 3 Pain Location: Knee-Left Description: Aching, Stabbing, Sharp Duration Amount of Time: 2 (Pt states knee pain for 6months, but worsened last 2 weeks) Duration Units: Weeks Frequency: Intermittent Intervention/Comfort measure: Medication, Cold documented in this encounter [facility] 08-17-2021 Miscellaneous Notes nayely-- 01/30/21 Next-- None on the books Last refill-- 05/11/21 30 with 11 refills Last labs-- 04/08/21 [address] encounter [facility] 08-07-2021 History of Presen t illness Narrative Patient presents with: Pain: (LT) knee pain rated 8, x1 day radiating to foot, denied accident/ injury HPI: Left knee pain: Duration: Bothering her since yesterday Location: Entire left knee Character: sharp and throbbing Radiation: Down to the top of the foot yesterday Aggravating: bending, standing, walking and stairs Relieving: Pain relievers: None. Ice Associated: Clicking, feels tight, numbness at the sole of both feet for a while Pertinent negatives: Denies known injury, giving out MEDICATIONS: potassium chloride (K-TAB) 10 mEq tablet Take 1 tablet by mouth once daily with breakfast traZODone (DESYREL) 50 mg tablet Take 1 tablet by mouth daily at bedtime. calcium carbonate-vitamin D3 500 mg-15 mcg (600 unit) tab Take 1 tablet by mouth twice daily. venlafaxine ER (EFFEXOR XR) 75 mg 24 hr capsule Take 1 capsule by mouth once daily. venlafaxine ER (EFFEXOR XR) 150 mg 24 hr capsule Take 1 capsule by mouth once daily. loratadine (CLARITIN) 10 mg tablet Take 1 tablet by mouth once daily. pantoprazole DR (PROTONIX) 40 mg tablet Take 1 tablet by mouth once daily. furosemide (LASIX) 40 mg tablet Take 1 tablet by mouth twice daily levothyroxine (SYNTHROID) 75 mcg tablet Take 1 tablet by mouth daily before breakfast. beclomethasone (QVAR REDIHALER) 80 mcg/actuation inhaler Inhale 2 Puffs as instructed twice daily. cholecalciferol (VITAMIN D3) 50 mcg (2,000 unit) tablet Take 1 tablet by mouth once daily. albuterol HFA (PROVENTIL HFA, VENTOLIN HFA) 90 mcg/actuation inhaler Inhale 2 Puffs as instructed every 4 hours as needed. Blood Pressure Monitor (BLOOD PRESSURE KIT) 1 Each once daily. CPAP Initiate CPAP @ 10 cm of water with humidification. Mask (per patient preference) optional chin strap (if indicated) , filters, tubing, humidifier and lifetime supplies. COMPOUNDED PRESCRIPTION CPAP Supplies; hose; mask DX: SHAINA COMPOUNDED PRESCRIPTION Powerstep full length originalDx: plantar fasciitis multivitamins(DAILY VITAMIN TAB) Take one(1) tablet daily. ALLERGIES: ALLERGIES Allergen Reactions Prozac [Fluoxetine * Other: See Comments Aggressive behavior, emotional VITALS: BP 126/82 Pulse 111 Temp 37 C (98.6 F) Resp 16 Wt 113.6 kg (250 lb 6.4 oz) LMP 11/16/2009 SpO2 98% BMI 42.98 kg/m PE: Pleasant, in no acute distress. BACK: No midline or paraspinal tenderness KNEE: left compared to right. No erythema or deformity. Mild to moderate effusion. FROM without pain. Patellar crepitus. Tender popliteal space but otherwise no joint line tenderness. Stable to varus and valgus strain. Negative anterior drawer test. Negative posterior drawer test. Component Latest Ref Rng & Units 10/01/2020 10/29/2020 Sm Antibody <1.0 AI <0.2 GASKET NOTCHER Antibody <1.0 AI <0.2 SSA Antibody <1.0 AI >8.0 (H) SSB Antibody <1.0 AI 0.3 Centromere Ab <1.0 AI <0.2 Scleroderma Ab, IgG <1.0 AI <0.2 Sheryl 1 Antibody <1.0 AI <0.2 Ribosomal GASKET NOTCHER <1.0 AI <0.2 Chromatin Antibody <1.0 AI <0.2 KRISTINE Negative Positive (A) KRISTINE Titer Negative 1:80 (A) KRISTINE Pattern Homogeneous Lyme Abs, IgG/IgM Negative Negative Rheumatoid Factor <16 IU/mL <10 CRP <0.9 mg/dL 1.4 (H) WSR 0 - 20 mm/hr 17 Component Latest Ref Rng & Units 07/30/2020 Glucose 74 - 99 mg/dL 100 (H) Component Latest Ref Rng & Units 10/26/2019 Hemoglobin A1C 4.3 - 5.6 % 5.2 Component Latest Ref Rng & Units 07/30/2020 eGFR-All Other Races . >60 ASSESSMENT/PLAN: 1. Acute pain of left knee - ICD9: 719.46, ICD10: M25.562 (primary diagnosis) 2. Effusion, left knee - ICD9: 719.06, ICD10: M25.462 Normal left knee xray in February. No acute injury. Start - NAPROXEN 500 MG TABLET Continue ice. - CONSULT TO ORTHOPAEDICS - may benefit from crystal analysis. She would like to follow up with her PCP about her sugar since she gets shaky at work sometimes and improves with eating and drinking something. Tuan Oleary MD documented in this encounter [facility] 07-27-2021 Miscellaneous Notes The following approved medication requests have been transmitted electronically. Refused Prescriptions Disp Refills loratadine (CLARITIN) 10 mg tablet 30 tablet 11 Sig: Take 1 tablet by mouth once daily. PARK: No Refused By: TUYET ARMSTRONG Reason for Refusal: Records indicate that there is a valid prescription at the pharmacy potassium chloride (K-TAB) 10 mEq tablet 30 tablet 0 Sig: Take 1 tablet by mouth daily with breakfast. PARK: No Refused By: DEISI GREENE Reason for Refusal: Refill currently being reviewed in another request Deisi Greene APRN.CNP Patient has been identified by name and date of : Yes Patient phones for refill(s): Pending Prescriptions Disp Refills POTASSIUM CHLORIDE ER 10 MEQ TABLET,EXTENDED RELEASE 30 tablet 0 Sig: Take 1 tablet by mouth daily with breakfast. PARK: No Refused Prescriptions Disp Refills loratadine (CLARITIN) 10 mg tablet 30 tablet 11 Sig: Take 1 tablet by mouth once daily. PARK: No Date of last office visit in primary care: OV on 01/30/2021 No appointment scheduled Last 2 Encounter Wt Readings: Date: Wt: 04/09/2021 116.6 kg (257 lb) 03/06/2021 119.8 kg (264 lb 3.2 oz) Please advise. Thank you. PAOLA Olmos documented in this encounter [facility] 07-27-2021 Miscellaneous Notes Patient has been identified by name and date of : Yes Pending Prescriptions Disp Refills POTASSIUM CHLORIDE ER 10 MEQ TABLET,EXTENDED RELEASE 30 tablet 0 Sig: Take 1 tablet by mouth once daily with breakfast PARK: Yes RX INSTRUCTIONS: Patient aware RX will be sent to pharmacy. No need to notify patient. Anh Frazier MA Nayely: 01/2021 No appointment scheduled Last refill: 06/2021 30 tablets documented in this encounter [facility] 07-15-2021 Miscellaneous Notes The following approved medication requests have been transmitted electronically. Signed Prescriptions Disp Refills valACYclovir (VALTREX) 1 gram 5 tablet 0 Sig: Take 1 tablet by mouth once daily for 5 days. PARK: No Deisi Greene APRN.CNP documented in this encounter [facility] 07-09-2021 Miscellaneous Notes nayely-- 01/30/21 Last refill 05/11/21 90 with 3 refills documented in this encounter [facility] 03-06-2021 History of Presen t illness Narrative Radiology Service Progress Note PATIENT NAME: Ronnie Katz DATE OF SERVICE: March 06, 2021 TIME: 1:19 PM PATIENT IDENTITY VERIFICATION COMPLETED USING TWO (2) IDENTIFIERS: Name and Date of confirmed by patient verbally. FALL SCREENING: Has the patient had 2 falls in the last year or 1 fall with injury or currently using an Ambulatory Assistive Device (Walker, Cane, Wheelchair, Crutches, etc.)? No PATIENT GENDER DATA: Female. status: : No status: NO. PATIENT RELEVANT IMPLANT DATA REVIEWED: Not Applicable RADIOLOGY DEPARTMENT: General X-ray: Exam(s) Completed: Lower Extremity X-Ray(s): Knee, AP / Lat / Tunne / Merchant Left and Wt. Bearing PERIPHERAL IV DATA: Not applicable SIGNED BY: RT Estfeani(R) March 06, 2021 1:19 PM documented in this encounter [facility] 10-29-2020 History of Presen t illness Narrative Radiology Service Progress Note PATIENT NAME: Ronnie Katz DATE OF SERVICE: October 29, 2020 TIME: 10:10 AM PATIENT IDENTITY VERIFICATION COMPLETED USING TWO (2) IDENTIFIERS: Name and Date of confirmed by patient verbally. FALL SCREENING: Has the patient had 2 falls in the last year or 1 fall with injury or currently using an Ambulatory Assistive Device (Walker, Cane, Wheelchair, Crutches, etc.)? No PATIENT GENDER DATA: Female. status: : No status: NO. PATIENT RELEVANT IMPLANT DATA REVIEWED: Yes RADIOLOGY DEPARTMENT: General X-ray: Exam(s) Completed: Lower Extremity X-Ray(s): Knee, AP / LAT Right and Wt. Bearing PERIPHERAL IV DATA: Not applicable SIGNED BY: RT Steve(R) October 29, 2020 10:10 AM documented in this encounter [facility] 10-01-2020 History of Presen t illness Narrative Radiology Service Progress Note PATIENT NAME: Ronnie Katz DATE OF SERVICE: October 01, 2020 TIME: 10:12 AM PATIENT IDENTITY VERIFICATION COMPLETED USING TWO (2) IDENTIFIERS: Name and Date of confirmed by patient verbally. FALL SCREENING: Has the patient had 2 falls in the last year or 1 fall with injury or currently using an Ambulatory Assistive Device (Walker, Cane, Wheelchair, Crutches, etc.)? No PATIENT GENDER DATA: Female. status: : No status: NO. PATIENT RELEVANT IMPLANT DATA REVIEWED: Not Applicable RADIOLOGY DEPARTMENT: General X-ray: Exam(s) Completed: Chest X-Ray PERIPHERAL IV DATA: Not applicable SIGNED BY: RT Estefani(R) October 01, 2020 10:12 AM documented in this encounter [facility] 04-25-2017 History of Past i llness Narrative Problem Noted Date Resolved Date Obesity, Class II, BMI 35-39.9 04/25/2017 0 10/30/2020 Medication monitoring encounter 09/13/2016 04/13/2017 Diastasis of rectus abdominis 12/11/2015 Enlarged uterus 10/22/2009 07/14/2011 Pelvic pain 10/22/2009 07/14/2011 Abdominal pain, lower 09/04/2009 07/14/2011 Menorrhagia 09/04/2009 07/14/2011 Genital herpes, unspecified 01/09/200705/2016 Elderly multigravida with an tepartum condition or complication 09/16/2006 03/14/2007 Supervision of other normal 08/04/2006 03/14/2007 documented as of this encounter (statuses as of 07/09/2021) [facility] [facility] of Past illness Narrative* Problem Noted Date Resolved Date Obesity, Class II, BMI 35-39.9 04/25/2017 0 10/30/2020 Medication monitoring encounter 09/13/2016 04/13/2017 Diastasis of rectus abdominis 12/11/2015 Enlarged uterus 10/22/2009 07/14/2011 Pelvic pain 10/22/2009 07/14/2011 Abdominal pain, lower 09/04/2009 07/14/2011 Menorrhagia 09/04/2009 07/14/2011 Genital herpes, unspecified 01/09/200705/2016 Elderly multigravida with an tepartum condition or complication 09/16/2006 03/14/2007 Supervision of other normal 08/04/2006 03/14/2007 documented as of this encounter (statuses as of 07/15/2021) [facility]01-[facility] History of Past illness Narrative* Problem Noted Date Resolved Date Obesity, Class II, BMI 35-39.9 04/25/2017 0 10/30/2020 Medication monitoring encounter 09/13/2016 04/13/2017 Diastasis of rectus abdominis 12/11/2015 Enlarged uterus 10/22/2009 07/14/2011 Pelvic pain 10/22/2009 07/14/2011 Abdominal pain, lower 09/04/2009 07/14/2011 Menorrhagia 09/04/2009 07/14/2011 Genital herpes, unspecified 01/09/200705/2016 Elderly multigravida with an tepartum condition or complication 09/16/2006 03/14/2007 Supervision of other normal 08/04/2006 03/14/2007 documented as of this encounter (statuses as of 07/27/2021) [facility] History of Past illness Narrative* Problem Noted Date Resolved Date Obesity, Class II, BMI 35-39.9 04/25/2017 0 10/30/2020 Medication monitoring encounter 09/13/2016 04/13/2017 Diastasis of rectus abdominis 12/11/2015 Enlarged uterus 10/22/2009 07/14/2011 Pelvic pain 10/22/2009 07/14/2011 Abdominal pain, lower 09/04/2009 07/14/2011 Menorrhagia 09/04/2009 07/14/2011 Genital herpes, unspecified 01/09/200705/2016 Elderly multigravida with an tepartum condition or complication 09/16/2006 03/14/2007 Supervision of other normal 08/04/2006 03/14/2007 documented as of this encounter (statuses as of 07/27/2021) [facility] History of Past illness Narrative* Problem Noted Date Resolved Date Obesity, Class II, BMI 35-39.9 04/25/2017 0 10/30/2020 Medication monitoring encounter 09/13/2016 04/13/2017 Diastasis of rectus abdominis 12/11/2015 Enlarged uterus 10/22/2009 07/14/2011 Pelvic pain 10/22/2009 07/14/2011 Abdominal pain, lower 09/04/2009 07/14/2011 Menorrhagia 09/04/2009 07/14/2011 Genital herpes, unspecified 01/09/20070 05/2016 Elderly multigravida with an tepartum condition or complication 09/16/2006 03/14/2007 Supervision of other normal 08/04/2006 03/14/2007 documented as of this encounter (statuses as of 08/07/2021) [facility] History of Past illness Narrative* Problem Noted Date Resolved Date Obesity, Class II, BMI 35-39.9 04/25/2017 0 10/30/2020 Medication monitoring encounter 09/13/2016 04/13/2017 Diastasis of rectus abdominis 12/11/2015 Enlarged uterus 10/22/2009 07/14/2011 Pelvic pain 10/22/2009 07/14/2011 Abdominal pain, lower 09/04/2009 07/14/2011 Menorrhagia 09/04/2009 07/14/2011 Genital herpes, unspecified 01/09/20070 05/2016 Elderly multigravida with an tepartum condition or complication 09/16/2006 03/14/2007 Supervision of other normal 08/04/2006 03/14/2007 documented as of this encounter (statuses as of 08/17/2021) [facility] History of Past illness Narrative* Problem Noted Date Resolved Date Obesity, Class II, BMI 35-39.9 04/25/2017 0 10/30/2020 Medication monitoring encounter 09/13/2016 04/13/2017 Diastasis of rectus abdominis 12/11/2015 Enlarged uterus 10/22/2009 07/14/2011 Pelvic pain 10/22/2009 07/14/2011 Abdominal pain, lower 09/04/2009 07/14/2011 Menorrhagia 09/04/2009 07/14/2011 Genital herpes, unspecified 01/09/200705/2016 Elderly multigravida with an tepartum condition or complication 09/16/2006 03/14/2007 Supervision of other normal 08/04/2006 03/14/2007 documented as of this encounter (statuses as of 08/21/2021) [facility] History of Past illness Narrative* Problem Noted Date Resolved Date Obesity, Class II, BMI 35-39.9 04/25/2017 0 10/30/2020 Medication monitoring encounter 09/13/2016 04/13/2017 Diastasis of rectus abdominis 12/11/2015 Enlarged uterus 10/22/2009 07/14/2011 Pelvic pain 10/22/2009 07/14/2011 Abdominal pain, lower 09/04/2009 07/14/2011 Menorrhagia 09/04/2009 07/14/2011 Genital herpes, unspecified 01/09/200705/2016 Elderly multigravida with an tepartum condition or complication 09/16/2006 03/14/2007 Supervision of other normal 08/04/2006 03/14/2007 documented as of this encounter (statuses as of 09/03/2021) [facility] History of Past illness Narrative* Problem Noted Date Resolved Date Obesity, Class II, BMI 35-39.9 04/25/2017 0 10/30/2020 Medication monitoring encounter 09/13/2016 04/13/2017 Diastasis of rectus abdominis 12/11/2015 Enlarged uterus 10/22/2009 07/14/2011 Pelvic pain 10/22/2009 07/14/2011 Abdominal pain, lower 09/04/2009 07/14/2011 Menorrhagia 09/04/2009 07/14/2011 Genital herpes, unspecified 01/09/200705/2016 Elderly multigravida with an tepartum condition or complication 09/16/2006 03/14/2007 Supervision of other normal 08/04/2006 03/14/2007 documented as of this encounter (statuses as of 11/02/2021) [facility] History of Past illness Narrative* Problem Noted Date Resolved Date Obesity, Class II, BMI 35-39.9 04/25/2017 0 10/30/2020 Medication monitoring encounter 09/13/2016 04/13/2017 Diastasis of rectus abdominis 12/11/2015 Enlarged uterus 10/22/2009 07/14/2011 Pelvic pain 10/22/2009 07/14/2011 Abdominal pain, lower 09/04/2009 07/14/2011 Menorrhagia 09/04/2009 07/14/2011 Genital herpes, unspecified 01/09/200705/2016 Elderly multigravida with an tepartum condition or complication 09/16/2006 03/14/2007 Supervision of other normal 08/04/2006 03/14/2007 documented as of this encounter (statuses as of 11/03/2021) [facility] History of Past illness Narrative* Problem Noted Date Resolved Date Obesity, Class II, BMI 35-39.9 04/25/2017 0 10/30/2020 Medication monitoring encounter 09/13/2016 04/13/2017 Diastasis of rectus abdominis 12/11/2015 Enlarged uterus 10/22/2009 07/14/2011 Pelvic pain 10/22/2009 07/14/2011 Abdominal pain, lower 09/04/2009 07/14/2011 Menorrhagia 09/04/2009 07/14/2011 Genital herpes, unspecified 01/09/200705/2016 Elderly multigravida with an tepartum condition or complication 09/16/2006 03/14/2007 Supervision of other normal 08/04/2006 03/14/2007 documented as of this encounter (statuses as of 11/27/2021) [facility] History of Past illness Narrative* Problem Noted Date Resolved Date Obesity, Class II, BMI 35-39.9 04/25/2017 0 10/30/2020 Medication monitoring encounter 09/13/2016 04/13/2017 Diastasis of rectus abdominis 12/11/2015 Enlarged uterus 10/22/2009 07/14/2011 Pelvic pain 10/22/2009 07/14/2011 Abdominal pain, lower 09/04/2009 07/14/2011 Menorrhagia 09/04/2009 07/14/2011 Genital herpes, unspecified 01/09/200705/2016 Elderly multigravida with an tepartum condition or complication 09/16/2006 03/14/2007 Supervision of other normal 08/04/2006 03/14/2007 documented as of this encounter (statuses as of 01/06/2022) [facility] History of Past illness Narrative* Problem Noted Date Resolved Date Obesity, Class II, BMI 35-39.9 04/25/2017 0 10/30/2020 Medication monitoring encounter 09/13/2016 04/13/2017 Diastasis of rectus abdominis 12/11/2015 Enlarged uterus 10/22/2009 07/14/2011 Pelvic pain 10/22/2009 07/14/2011 Abdominal pain, lower 09/04/2009 07/14/2011 Menorrhagia 09/04/2009 07/14/2011 Genital herpes, unspecified 01/09/200705/2016 Elderly multigravida with an tepartum condition or complication 09/16/2006 03/14/2007 Supervision of other normal 08/04/2006 03/14/2007 documented as of this encounter (statuses as of 01/06/2022) [facility] History of Past illness Narrative* Problem Noted Date Resolved Date Obesity, Class II, BMI 35-39.9 04/25/2017 0 10/30/2020 Medication monitoring encounter 09/13/2016 04/13/2017 Diastasis of rectus abdominis 12/11/2015 Enlarged uterus 10/22/2009 07/14/2011 Pelvic pain 10/22/2009 07/14/2011 Abdominal pain, lower 09/04/2009 07/14/2011 Menorrhagia 09/04/2009 07/14/2011 Genital herpes, unspecified 01/09/200705/2016 Elderly multigravida with an tepartum condition or complication 09/16/2006 03/14/2007 Supervision of other normal 08/04/2006 03/14/2007 documented as of this encounter (statuses as of 03/15/2022) [facility] History of Past illness Narrative* Problem Noted Date Resolved Date Obesity, Class II, BMI 35-39.9 04/25/2017 0 10/30/2020 Medication monitoring encounter 09/13/2016 04/13/2017 Diastasis of rectus abdominis 12/11/2015 Enlarged uterus 10/22/2009 07/14/2011 Pelvic pain 10/22/2009 07/14/2011 Abdominal pain, lower 09/04/2009 07/14/2011 Menorrhagia 09/04/2009 07/14/2011 Genital herpes, unspecified 01/09/200705/2016 Elderly multigravida with an tepartum condition or complication 09/16/2006 03/14/2007 Supervision of other normal 08/04/2006 03/14/2007 documented as of this encounter (statuses as of 04/13/2022) [facility] History of Past illness Narrative* Problem Noted Date Resolved Date Obesity, Class II, BMI 35-39.9 04/25/2017 0 10/30/2020 Medication monitoring encounter 09/13/2016 04/13/2017 Diastasis of rectus abdominis 12/11/2015 Enlarged uterus 10/22/2009 07/14/2011 Pelvic pain 10/22/2009 07/14/2011 Abdominal pain, lower 09/04/2009 07/14/2011 Menorrhagia 09/04/2009 07/14/2011 Genital herpes, unspecified 01/09/20070 05/2016 Elderly multigravida with an tepartum condition or complication 09/16/2006 03/14/2007 Supervision of other normal 08/04/2006 03/14/2007 documented as of this encounter (statuses as of 05/06/2022) [facility] History of Past illness Narrative* Problem Noted Date Resolved Date Obesity, Class II, BMI 35-39.9 04/25/2017 0 10/30/2020 Medication monitoring encounter 09/13/2016 04/13/2017 Diastasis of rectus abdominis 12/11/2015 Enlarged uterus 10/22/2009 07/14/2011 Pelvic pain 10/22/2009 07/14/2011 Abdominal pain, lower 09/04/2009 07/14/2011 Menorrhagia 09/04/2009 07/14/2011 Genital herpes, unspecified 01/09/200705/2016 Elderly multigravida with an tepartum condition or complication 09/16/2006 03/14/2007 Supervision of other normal 08/04/2006 03/14/2007 documented as of this encounter (statuses as of 05/13/2022) [facility] History of Past illness Narrative* Problem Noted Date Resolved Date Obesity, Class II, BMI 35-39.9 04/25/2017 0 10/30/2020 Medication monitoring encounter 09/13/2016 04/13/2017 Diastasis of rectus abdominis 12/11/2015 Enlarged uterus 10/22/2009 07/14/2011 Pelvic pain 10/22/2009 07/14/2011 Abdominal pain, lower 09/04/2009 07/14/2011 Menorrhagia 09/04/2009 07/14/2011 Genital herpes, unspecified 01/09/200705/2016 Elderly multigravida with an tepartum condition or complication 09/16/2006 03/14/2007 Supervision of other normal 08/04/2006 03/14/2007 documented as of this encounter (statuses as of 05/17/2022) [facility] History of Past illness Narrative* Problem Noted Date Resolved Date Obesity, Class II, BMI 35-39.9 04/25/2017 0 10/30/2020 Medication monitoring encounter 09/13/2016 04/13/2017 Diastasis of rectus abdominis 12/11/2015 Enlarged uterus 10/22/2009 07/14/2011 Pelvic pain 10/22/2009 07/14/2011 Abdominal pain, lower 09/04/2009 07/14/2011 Menorrhagia 09/04/2009 07/14/2011 Genital herpes, unspecified 01/09/200705/2016 Elderly multigravida with an tepartum condition or complication 09/16/2006 03/14/2007 Supervision of other normal 08/04/2006 03/14/2007 documented as of this encounter (statuses as of 05/20/2022) [facility] History of Past illness Narrative* Problem Noted Date Resolved Date Obesity, Class II, BMI 35-39.9 04/25/2017 0 10/30/2020 Medication monitoring encounter 09/13/2016 04/13/2017 Diastasis of rectus abdominis 12/11/2015 Enlarged uterus 10/22/2009 07/14/2011 Pelvic pain 10/22/2009 07/14/2011 Abdominal pain, lower 09/04/2009 07/14/2011 Menorrhagia 09/04/2009 07/14/2011 Genital herpes, unspecified 01/09/200705/2016 Elderly multigravida with an tepartum condition or complication 09/16/2006 03/14/2007 Supervision of other normal 08/04/2006 03/14/2007 documented as of this encounter (statuses as of 06/11/2022) [facility] History of Past illness Narrative* Problem Noted Date Resolved Date Obesity, Class II, BMI 35-39.9 04/25/2017 0 10/30/2020 Medication monitoring encounter 09/13/2016 04/13/2017 Diastasis of rectus abdominis 12/11/2015 Enlarged uterus 10/22/2009 07/14/2011 Pelvic pain 10/22/2009 07/14/2011 Abdominal pain, lower 09/04/2009 07/14/2011 Menorrhagia 09/04/2009 07/14/2011 Genital herpes, unspecified 01/09/200705/2016 Elderly multigravida with an tepartum condition or complication 09/16/2006 03/14/2007 Supervision of other normal 08/04/2006 03/14/2007 documented as of this encounter (statuses as of 06/17/2022) [facility] History of Past illness Narrative* Problem Noted Date Resolved Date Obesity, Class II, BMI 35-39.9 04/25/2017 0 10/30/2020 Medication monitoring encounter 09/13/2016 04/13/2017 Diastasis of rectus abdominis 12/11/2015 Enlarged uterus 10/22/2009 07/14/2011 Pelvic pain 10/22/2009 07/14/2011 Abdominal pain, lower 09/04/2009 07/14/2011 Menorrhagia 09/04/2009 07/14/2011 Genital herpes, unspecified 01/09/200705/2016 Elderly multigravida with an tepartum condition or complication 09/16/2006 03/14/2007 Supervision of other normal 08/04/2006 03/14/2007 documented as of this encounter (statuses as of 06/23/2022) [facility] History of Past illness Narrative* Problem Noted Date Resolved Date Obesity, Class II, BMI 35-39.9 04/25/2017 0 10/30/2020 Medication monitoring encounter 09/13/2016 04/13/2017 Diastasis of rectus abdominis 12/11/2015 Enlarged uterus 10/22/2009 07/14/2011 Pelvic pain 10/22/2009 07/14/2011 Abdominal pain, lower 09/04/2009 07/14/2011 Menorrhagia 09/04/2009 07/14/2011 Genital herpes, unspecified 01/09/200705/2016 Elderly multigravida with an tepartum condition or complication 09/16/2006 03/14/2007 Supervision of other normal 08/04/2006 03/14/2007 documented as of this encounter (statuses as of 07/02/2022) [facility] History of Past illness Narrative* Problem Noted Date Resolved Date Obesity, Class II, BMI 35-39.9 04/25/2017 0 10/30/2020 Medication monitoring encounter 09/13/2016 04/13/2017 Diastasis of rectus abdominis 12/11/2015 Enlarged uterus 10/22/2009 07/14/2011 Pelvic pain 10/22/2009 07/14/2011 Abdominal pain, lower 09/04/2009 07/14/2011 Menorrhagia 09/04/2009 07/14/2011 Genital herpes, unspecified 01/09/200705/2016 Elderly multigravida with an tepartum condition or complication 09/16/2006 03/14/2007 Supervision of other normal 08/04/2006 03/14/2007 documented as of this encounter (statuses as of 07/07/2022) [facility] History of Past illness Narrative* Problem Noted Date Resolved Date Obesity, Class II, BMI 35-39.9 04/25/2017 0 10/30/2020 Medication monitoring encounter 09/13/2016 04/13/2017 Diastasis of rectus abdominis 12/11/2015 Enlarged uterus 10/22/2009 07/14/2011 Pelvic pain 10/22/2009 07/14/2011 Abdominal pain, lower 09/04/2009 07/14/2011 Menorrhagia 09/04/2009 07/14/2011 Genital herpes, unspecified 01/09/200705/2016 Elderly multigravida with an tepartum condition or complication 09/16/2006 03/14/2007 Supervision of other normal 08/04/2006 03/14/2007 documented as of this encounter (statuses as of 10/12/2022) [facility] History of Past illness Narrative* Problem Noted Date Diagnosed Date Resolved Date Obesity, Class II, BMI 35-39.9 04/25/2017 10/30/2020 Medication monitoring encounter 09/13/2016 04/13/2017 Diastasis of rectus abdominis 12/11/2015 04/13/2017 Enlarged uterus 10/22/2009 07/14/2011 Pelvic pain 10/22/2009 07/14/2011 Abdominal pain, lower 09/04/20092011 Menorrhagia 09/04/2009 07/14/2011 Genital herpes, unspecified 01/09/2007 09/10/2016 Elderly multigravida with an tepartum condition or complication 09/16/2006 03/14/2007 Supervision of other normal 08/04/2006 03/14/2007 documented as of this encounter (statuses as of 12/14/2022) [facility] History of Past illness Narrative* Problem Noted Date Diagnosed Date Resolved Date Obesity, Class II, BMI 35-39.9 04/25/2017 10/30/2020 Medication monitoring encounter 09/13/2016 04/13/2017 Diastasis of rectus abdominis 12/11/2015 04/13/2017 Enlarged uterus 10/22/2009 07/14/2011 Pelvic pain 10/22/2009 07/14/2011 Abdominal pain, lower 09/04/20092011 Menorrhagia 09/04/2009 07/14/2011 Genital herpes, unspecified 01/09/2007 09/10/2016 Elderly multigravida with an tepartum condition or complication 09/16/2006 03/14/2007 Supervision of other normal 08/04/2006 03/14/2007 documented as of this encounter (statuses as of 12/16/2022) [facility] History of Past illness Narrative* Problem Noted Date Diagnosed Date Resolved Date Obesity, Class II, BMI 35-39.9 04/25/2017 10/30/2020 Medication monitoring encounter 09/13/2016 04/13/2017 Diastasis of rectus abdominis 12/11/2015 04/13/2017 Enlarged uterus 10/22/2009 07/14/2011 Pelvic pain 10/22/2009 07/14/2011 Abdominal pain, lower 09/04/20092011 Menorrhagia 09/04/2009 07/14/2011 Genital herpes, unspecified 01/09/2007 09/10/2016 Elderly multigravida with an tepartum condition or complication 09/16/2006 03/14/2007 Supervision of other normal 08/04/2006 03/14/2007 documented as of this encounter (statuses as of 12/21/2022) [facility] History of Past illness Narrative* Problem Noted Date Diagnosed Date Resolved Date Obesity, Class II, BMI 35-39.9 04/25/2017 10/30/2020 Medication monitoring encounter 09/13/2016 04/13/2017 Diastasis of rectus abdominis 12/11/2015 04/13/2017 Enlarged uterus 10/22/2009 07/14/2011 Pelvic pain 10/22/2009 07/14/2011 Abdominal pain, lower 09/04/20092011 Menorrhagia 09/04/2009 07/14/2011 Genital herpes, unspecified 01/09/2007 09/10/2016 Elderly multigravida with an tepartum condition or complication 09/16/2006 03/14/2007 Supervision of other normal 08/04/2006 03/14/2007 documented as of this encounter (statuses as of 12/21/2022) [facility] History of Past illness Narrative* Problem Noted Date Diagnosed Date Resolved Date Obesity, Class II, BMI 35-39.9 04/25/2017 10/30/2020 Medication monitoring encounter 09/13/2016 04/13/2017 Diastasis of rectus abdominis 12/11/2015 04/13/2017 Enlarged uterus 10/22/2009 07/14/2011 Pelvic pain 10/22/2009 07/14/2011 Abdominal pain, lower 09/04/20092011 Menorrhagia 09/04/2009 07/14/2011 Genital herpes, unspecified 01/09/2007 09/10/2016 Elderly multigravida with an tepartum condition or complication 09/16/2006 03/14/2007 Supervision of other normal 08/04/2006 03/14/2007 documented as of this encounter (statuses as of 12/31/2022) [facility] History of Past illness Narrative* Problem Noted Date Diagnosed Date Resolved Date Obesity, Class II, BMI 35-39.9 04/25/2017 10/30/2020 Medication monitoring encounter 09/13/2016 04/13/2017 Diastasis of rectus abdominis 12/11/2015 04/13/2017 Enlarged uterus 10/22/2009 07/14/2011 Pelvic pain 10/22/2009 07/14/2011 Abdominal pain, lower 09/04/20092011 Menorrhagia 09/04/2009 07/14/2011 Genital herpes, unspecified 01/09/2007 09/10/2016 Elderly multigravida with an tepartum condition or complication 09/16/2006 03/14/2007 Supervision of other normal 08/04/2006 03/14/2007 documented as of this encounter (statuses as of 01/11/2023) [facility] History of Past illness Narrative* Problem Noted Date Diagnosed Date Resolved Date Obesity, Class II, BMI 35-39.9 04/25/2017 10/30/2020 Medication monitoring encounter 09/13/2016 04/13/2017 Diastasis of rectus abdominis 12/11/2015 04/13/2017 Enlarged uterus 10/22/2009 07/14/2011 Pelvic pain 10/22/2009 07/14/2011 Abdominal pain, lower 09/04/20092011 Menorrhagia 09/04/2009 07/14/2011 Genital herpes, unspecified 01/09/2007 09/10/2016 Elderly multigravida with an tepartum condition or complication 09/16/2006 03/14/2007 Supervision of other normal 08/04/2006 03/14/2007 documented as of this encounter (statuses as of 01/27/2023) [facility] History of Past illness Narrative* Problem Noted Date Diagnosed Date Resolved Date Obesity, Class II, BMI 35-39.9 04/25/2017 10/30/2020 Medication monitoring encounter 09/13/2016 04/13/2017 Diastasis of rectus abdominis 12/11/2015 04/13/2017 Enlarged uterus 10/22/2009 07/14/2011 Pelvic pain 10/22/2009 07/14/2011 Abdominal pain, lower 09/04/20092011 Menorrhagia 09/04/2009 07/14/2011 Genital herpes, unspecified 01/09/2007 09/10/2016 Elderly multigravida with an tepartum condition or complication 09/16/2006 03/14/2007 Supervision of other normal 08/04/2006 03/14/2007 documented as of this encounter (statuses as of 02/02/2023) [facility] History of Past illness Narrative* Problem Noted Date Diagnosed Date Resolved Date Obesity, Class II, BMI 35-39.9 04/25/2017 10/30/2020 Medication monitoring encounter 09/13/2016 04/13/2017 Diastasis of rectus abdominis 12/11/2015 04/13/2017 Enlarged uterus 10/22/2009 07/14/2011 Pelvic pain 10/22/2009 07/14/2011 Abdominal pain, lower 09/04/20092011 Menorrhagia 09/04/2009 07/14/2011 Genital herpes, unspecified 01/09/2007 09/10/2016 Elderly multigravida with an tepartum condition or complication 09/16/2006 03/14/2007 Supervision of other normal 08/04/2006 03/14/2007 documented as of this encounter (statuses as of 02/03/2023) [facility] History of Past illness Narrative* Problem Noted Date Diagnosed Date Resolved Date Obesity, Class II, BMI 35-39.9 04/25/2017 10/30/2020 Medication monitoring encounter 09/13/2016 04/13/2017 Diastasis of rectus abdominis 12/11/2015 04/13/2017 Enlarged uterus 10/22/2009 07/14/2011 Pelvic pain 10/22/2009 07/14/2011 Abdominal pain, lower 09/04/20092011 Menorrhagia 09/04/2009 07/14/2011 Genital herpes, unspecified 01/09/2007 09/10/2016 Elderly multigravida with an tepartum condition or complication 09/16/2006 03/14/2007 Supervision of other normal 08/04/2006 03/14/2007 documented as of this encounter (statuses as of 02/03/2023) [facility] History of Past illness Narrative* Problem Noted Date Diagnosed Date Resolved Date Obesity, Class II, BMI 35-39.9 04/25/2017 10/30/2020 Medication monitoring encounter 09/13/2016 04/13/2017 Diastasis of rectus abdominis 12/11/2015 04/13/2017 Enlarged uterus 10/22/2009 07/14/2011 Pelvic pain 10/22/2009 07/14/2011 Abdominal pain, lower 09/04/20092011 Menorrhagia 09/04/2009 07/14/2011 Genital herpes, unspecified 01/09/2007 09/10/2016 Elderly multigravida with an tepartum condition or complication 09/16/2006 03/14/2007 Supervision of other normal 08/04/2006 03/14/2007 documented as of this encounter (statuses as of 02/13/2023) [facility] History of Past illness Narrative* Problem Noted Date Diagnosed Date Resolved Date Obesity, Class II, BMI 35-39.9 04/25/2017 10/30/2020 Medication monitoring encounter 09/13/2016 04/13/2017 Diastasis of rectus abdominis 12/11/2015 04/13/2017 Enlarged uterus 10/22/2009 07/14/2011 Pelvic pain 10/22/2009 07/14/2011 Abdominal pain, lower 09/04/20092011 Menorrhagia 09/04/2009 07/14/2011 Genital herpes, unspecified 01/09/2007 09/10/2016 Elderly multigravida with an tepartum condition or complication 09/16/2006 03/14/2007 Supervision of other normal 08/04/2006 03/14/2007 documented as of this encounter (statuses as of 02/13/2023) [facility] History of Past illness Narrative* Problem Noted Date Diagnosed Date Resolved Date Obesity, Class II, BMI 35-39.9 04/25/2017 10/30/2020 Medication monitoring encounter 09/13/2016 04/13/2017 Diastasis of rectus abdominis 12/11/2015 04/13/2017 Enlarged uterus 10/22/2009 07/14/2011 Pelvic pain 10/22/2009 07/14/2011 Abdominal pain, lower 09/04/20092011 Menorrhagia 09/04/2009 07/14/2011 Genital herpes, unspecified 01/09/2007 09/10/2016 Elderly multigravida with an tepartum condition or complication 09/16/2006 03/14/2007 Supervision of other normal 08/04/2006 03/14/2007 documented as of this encounter (statuses as of 02/13/2023) [facility] History of Past illness Narrative* Problem Noted Date Diagnosed Date Resolved Date Obesity, Class II, BMI 35-39.9 04/25/2017 10/30/2020 Medication monitoring encounter 09/13/2016 04/13/2017 Diastasis of rectus abdominis 12/11/2015 04/13/2017 Enlarged uterus 10/22/2009 07/14/2011 Pelvic pain 10/22/2009 07/14/2011 Abdominal pain, lower 09/04/20092011 Menorrhagia 09/04/2009 07/14/2011 Genital herpes, unspecified 01/09/2007 09/10/2016 Elderly multigravida with an tepartum condition or complication 09/16/2006 03/14/2007 Supervision of other normal 08/04/2006 03/14/2007 documented as of this encounter (statuses as of 02/18/2023) [facility] History of Past illness Narrative* Problem Noted Date Diagnosed Date Resolved Date Obesity, Class II, BMI 35-39.9 04/25/2017 10/30/2020 Medication monitoring encounter 09/13/2016 04/13/2017 Diastasis of rectus abdominis 12/11/2015 04/13/2017 Enlarged uterus 10/22/2009 07/14/2011 Pelvic pain 10/22/2009 07/14/2011 Abdominal pain, lower 09/04/20092011 Menorrhagia 09/04/2009 07/14/2011 Genital herpes, unspecified 01/09/2007 09/10/2016 Elderly multigravida with an tepartum condition or complication 09/16/2006 03/14/2007 Supervision of other normal 08/04/2006 03/14/2007 documented as of this encounter (statuses as of 02/26/2023) [facility] History of Past illness Narrative* Problem Noted Date Diagnosed Date Resolved Date Obesity, Class II, BMI 35-39.9 04/25/2017 10/30/2020 Medication monitoring encounter 09/13/2016 04/13/2017 Diastasis of rectus abdominis 12/11/2015 04/13/2017 Enlarged uterus 10/22/2009 07/14/2011 Pelvic pain 10/22/2009 07/14/2011 Abdominal pain, lower 09/04/20092011 Menorrhagia 09/04/2009 07/14/2011 Genital herpes, unspecified 01/09/2007 09/10/2016 Elderly multigravida with an tepartum condition or complication 09/16/2006 03/14/2007 Supervision of other normal 08/04/2006 03/14/2007 documented as of this encounter (statuses as of 03/08/2023) [facility] History of Past illness Narrative* Problem Noted Date Diagnosed Date Resolved Date Obesity, Class II, BMI 35-39.9 04/25/2017 10/30/2020 Medication monitoring encounter 09/13/2016 04/13/2017 Diastasis of rectus abdominis 12/11/2015 04/13/2017 Enlarged uterus 10/22/2009 07/14/2011 Pelvic pain 10/22/2009 07/14/2011 Abdominal pain, lower 09/04/20092011 Menorrhagia 09/04/2009 07/14/2011 Genital herpes, unspecified 01/09/2007 09/10/2016 Elderly multigravida with an tepartum condition or complication 09/16/2006 03/14/2007 Supervision of other normal 08/04/2006 03/14/2007 documented as of this encounter (statuses as of 05/25/2023) [facility] History of Past illness Narrative* Problem Noted Date Diagnosed Date Resolved Date Obesity, Class II, BMI 35-39.9 04/25/2017 10/30/2020 Medication monitoring encounter 09/13/2016 04/13/2017 Diastasis of rectus abdominis 12/11/2015 04/13/2017 Enlarged uterus 10/22/2009 07/14/2011 Pelvic pain 10/22/2009 07/14/2011 Abdominal pain, lower 09/04/20092011 Menorrhagia 09/04/2009 07/14/2011 Genital herpes, unspecified 01/09/2007 09/10/2016 Elderly multigravida with an tepartum condition or complication 09/16/2006 03/14/2007 Supervision of other normal 08/04/2006 03/14/2007 documented as of this encounter (statuses as of 05/25/2023) [facility] History of Past illness Narrative* Problem Noted Date Diagnosed Date Resolved Date Obesity, Class II, BMI 35-39.9 04/25/2017 10/30/2020 Medication monitoring encounter 09/13/2016 04/13/2017 Diastasis of rectus abdominis 12/11/2015 04/13/2017 Enlarged uterus 10/22/2009 07/14/2011 Pelvic pain 10/22/2009 07/14/2011 Abdominal pain, lower 09/04/20092011 Menorrhagia 09/04/2009 07/14/2011 Genital herpes, unspecified 01/09/2007 09/10/2016 Elderly multigravida with an tepartum condition or complication 09/16/2006 03/14/2007 Supervision of other normal 08/04/2006 03/14/2007 documented as of this encounter (statuses as of 06/15/2023) [facility] History of Past illness Narrative* Problem Noted Date Diagnosed Date Resolved Date Obesity, Class II, BMI 35-39.9 04/25/2017 10/30/2020 Medication monitoring encounter 09/13/2016 04/13/2017 Diastasis of rectus abdominis 12/11/2015 04/13/2017 Enlarged uterus 10/22/2009 07/14/2011 Pelvic pain 10/22/2009 07/14/2011 Abdominal pain, lower 09/04/20092011 Menorrhagia 09/04/2009 07/14/2011 Genital herpes, unspecified 01/09/2007 09/10/2016 Elderly multigravida with an tepartum condition or complication 09/16/2006 03/14/2007 Supervision of other normal 08/04/2006 03/14/2007 documented as of this encounter (statuses as of 06/16/2023) [facility] History of Past illness Narrative* Problem Noted Date Diagnosed Date Resolved Date Obesity, Class II, BMI 35-39.9 04/25/2017 10/30/2020 Medication monitoring encounter 09/13/2016 04/13/2017 Diastasis of rectus abdominis 12/11/2015 04/13/2017 Enlarged uterus 10/22/2009 07/14/2011 Pelvic pain 10/22/2009 07/14/2011 Abdominal pain, lower 09/04/20092011 Menorrhagia 09/04/2009 07/14/2011 Genital herpes, unspecified 01/09/2007 09/10/2016 Elderly multigravida with an tepartum condition or complication 09/16/2006 03/14/2007 Supervision of other normal 08/04/2006 03/14/2007 documented as of this encounter (statuses as of 06/23/2023) [facility] History of Past illness Narrative* Problem Noted Date Diagnosed Date Resolved Date Obesity, Class II, BMI 35-39.9 04/25/2017 10/30/2020 Medication monitoring encounter 09/13/2016 04/13/2017 Diastasis of rectus abdominis 12/11/2015 04/13/2017 Enlarged uterus 10/22/2009 07/14/2011 Pelvic pain 10/22/2009 07/14/2011 Abdominal pain, lower 09/04/20092011 Menorrhagia 09/04/2009 07/14/2011 Genital herpes, unspecified 01/09/2007 09/10/2016 Elderly multigravida with an tepartum condition or complication 09/16/2006 03/14/2007 Supervision of other normal 08/04/2006 03/14/2007 documented as of this encounter (statuses as of 06/25/2023) [facility] History of Past illness Narrative* Problem Noted Date Diagnosed Date Resolved Date Obesity, Class II, BMI 35-39.9 04/25/2017 10/30/2020 Medication monitoring encounter 09/13/2016 04/13/2017 Diastasis of rectus abdominis 12/11/2015 04/13/2017 Enlarged uterus 10/22/2009 07/14/2011 Pelvic pain 10/22/2009 07/14/2011 Abdominal pain, lower 09/04/20092011 Menorrhagia 09/04/2009 07/14/2011 Genital herpes, unspecified 01/09/2007 09/10/2016 Elderly multigravida with an tepartum condition or complication 09/16/2006 03/14/2007 Supervision of other normal 08/04/2006 03/14/2007 documented as of this encounter (statuses as of 06/27/2023) [facility] History of Past illness Narrative* Problem Noted Date Diagnosed Date Resolved Date Obesity, Class II, BMI 35-39.9 04/25/2017 10/30/2020 Medication monitoring encounter 09/13/2016 04/13/2017 Diastasis of rectus abdominis 12/11/2015 04/13/2017 Enlarged uterus 10/22/2009 07/14/2011 Pelvic pain 10/22/2009 07/14/2011 Abdominal pain, lower 09/04/20092011 Menorrhagia 09/04/2009 07/14/2011 Genital herpes, unspecified 01/09/2007 09/10/2016 Elderly multigravida with an tepartum condition or complication 09/16/2006 03/14/2007 Supervision of other normal 08/04/2006 03/14/2007 documented as of this encounter (statuses as of 06/29/2023) [facility] History of Past illness Narrative* Problem Noted Date Diagnosed Date Resolved Date Obesity, Class II, BMI 35-39.9 04/25/2017 10/30/2020 Medication monitoring encounter 09/13/2016 04/13/2017 Diastasis of rectus abdominis 12/11/2015 04/13/2017 Enlarged uterus 10/22/2009 07/14/2011 Pelvic pain 10/22/2009 07/14/2011 Abdominal pain, lower 09/04/20092011 Menorrhagia 09/04/2009 07/14/2011 Genital herpes, unspecified 01/09/2007 09/10/2016 Elderly multigravida with an tepartum condition or complication 09/16/2006 03/14/2007 Supervision of other normal 08/04/2006 03/14/2007 documented as of this encounter (statuses as of 07/04/2023) [facility] History of Past illness Narrative* Problem Noted Date Diagnosed Date Resolved Date Obesity, Class II, BMI 35-39.9 04/25/2017 10/30/2020 Medication monitoring encounter 09/13/2016 04/13/2017 Diastasis of rectus abdominis 12/11/2015 04/13/2017 Enlarged uterus 10/22/2009 07/14/2011 Pelvic pain 10/22/2009 07/14/2011 Abdominal pain, lower 09/04/20092011 Menorrhagia 09/04/2009 07/14/2011 Genital herpes, unspecified 01/09/2007 09/10/2016 Elderly multigravida with an tepartum condition or complication 09/16/2006 03/14/2007 Supervision of other normal 08/04/2006 03/14/2007 documented as of this encounter (statuses as of 07/20/2023) [facility] History of Past illness Narrative* Problem Noted Date Diagnosed Date Resolved Date Obesity, Class II, BMI 35-39.9 04/25/2017 10/30/2020 Medication monitoring encounter 09/13/2016 04/13/2017 Diastasis of rectus abdominis 12/11/2015 04/13/2017 Enlarged uterus 10/22/2009 07/14/2011 Pelvic pain 10/22/2009 07/14/2011 Abdominal pain, lower 09/04/20092011 Menorrhagia 09/04/2009 07/14/2011 Genital herpes, unspecified 01/09/2007 09/10/2016 Elderly multigravida with an tepartum condition or complication 09/16/2006 03/14/2007 Supervision of other normal 08/04/2006 03/14/2007 documented as of this encounter (statuses as of 07/20/2023) [facility] History of Past illness Narrative* Problem Noted Date Diagnosed Date Resolved Date Obesity, Class II, BMI 35-39.9 04/25/2017 10/30/2020 Medication monitoring encounter 09/13/2016 04/13/2017 Diastasis of rectus abdominis 12/11/2015 04/13/2017 Enlarged uterus 10/22/2009 07/14/2011 Pelvic pain 10/22/2009 07/14/2011 Abdominal pain, lower 09/04/20092011 Menorrhagia 09/04/2009 07/14/2011 Genital herpes, unspecified 01/09/2007 09/10/2016 Elderly multigravida with an tepartum condition or complication 09/16/2006 03/14/2007 Supervision of other normal 08/04/2006 03/14/2007 documented as of this encounter (statuses as of 07/20/2023) [facility] History of Past illness Narrative* Problem Noted Date Diagnosed Date Resolved Date Obesity, Class II, BMI 35-39.9 04/25/2017 10/30/2020 Medication monitoring encounter 09/13/2016 04/13/2017 Diastasis of rectus abdominis 12/11/2015 04/13/2017 Enlarged uterus 10/22/2009 07/14/2011 Pelvic pain 10/22/2009 07/14/2011 Abdominal pain, lower 09/04/20092011 Menorrhagia 09/04/2009 07/14/2011 Genital herpes, unspecified 01/09/2007 09/10/2016 Elderly multigravida with an tepartum condition or complication 09/16/2006 03/14/2007 Supervision of other normal 08/04/2006 03/14/2007 documented as of this encounter (statuses as of 07/28/2023) [facility] Diagnosis Primary insomnia Persistent disorder of initiating or maintaining sleep [facility] Diagnosis Hypokalemia Hypopotassemia [facility]* Diagnosis Mild persistent asthma without complication Unspecified asthma Hypokalemia Hypopotassemia [facility] this [facility]* Diagnosis Acute pain of left knee- Primary Effusion, left knee [facility]* Diagnosis Mild persistent asthma without complication Unspecified asthma [facility] this [facility] Diagnosis Chondromalacia of patella, unspecified laterality- Primary Acute pain of left knee Effusion, left knee [facility]* Diagnosis Vitamin D deficiency Unspecified vitamin D deficiency Hypokalemia Hypopotassemia [facility] this [facility]* Diagnosis Gastroesophageal reflux disease without esophagitis Esophageal reflux Belching Flatulence, eructation, and gas pain [facility] this 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* Diagnosis Anxiety with depression- Primary Mike's disease Chronic lymphocytic thyroiditis Mixed hyperlipidemia Vitamin D deficiency Unspecified vitamin D deficiency Obesity, Class III, BMI 40-49.9 (morbid obesity) (HCC) Morbid obesity Elevated fasting glucose Impaired fasting glucose [facility]* Diagnosis Primary insomnia Persistent disorder of initiating or maintaining sleep Vitamin D deficiency Unspecified vitamin D deficiency Hypokalemia Hypopotassemia [facility] this [facility]* Diagnosis Swelling of both hands Leg swelling Swelling of limb [facility] this [facility]* Diagnosis Encounter for screening mammogram for breast cancer [facility]* Diagnosis Vitamin D insufficiency Unspecified vitamin D deficiency [facility] this [facility]* Diagnosis Sore throat- Primary Acute pharyngitis Viral URI Acute upper respiratory infections of unspecified site [facility]* Diagnosis SOB (shortness of breath) on exertion- Primary Shortness of breath Mild persistent asthma without complication Unspecified asthma Wheezing Decreased lung sounds Abnormal chest sounds SHAINA (obstructive sleep apnea) Obstructive sleep apnea (adult) (pediatric) [facility] Diagnosis Mild persistent asthma without complication Unspecified asthma Wheezing SOB (shortness of breath) on exertion Shortness of breath Decreased lung sounds Abnormal chest sounds [facility]* Diagnosis SHAINA (obstructive sleep apnea)- Primary Obstructive sleep apnea (adult) (pediatric) [facility]* Diagnosis Chest pressure- Primary Other chest pain Chest pain, unspecified type Shortness of breath SHAINA (obstructive sleep apnea) Obstructive sleep apnea (adult) (pediatric) Mild persistent asthma without complication Unspecified asthma Right elbow pain Pain in joint, upper arm Bilateral hearing loss, unspecified hearing loss type [facility] this [facility]* Diagnosis Acute constipation- Primary Unspecified constipation [facility] this [facility]* Diagnosis Gastroesophageal reflux disease without esophagitis Esophageal reflux Belching Flatulence, eructation, and gas pain [facility] this [facility]* Diagnosis Foot pain, bilateral- Primary Pain in limb Bilateral cold feet Cramping of feet Cramp of limb SOB (shortness of breath) on exertion Shortness of breath Hypokalemia Hypopotassemia Mixed hyperlipidemia Mike's disease Chronic lymphocytic thyroiditis Vitamin D insufficiency Unspecified vitamin D deficiency [facility] this [facility]* Diagnosis Acute cough- Primary URI, acute Acute upper respiratory infections of unspecified site [facility] this [facility]* Diagnosis Hepatic steatosis- Primary Other chronic nonalcoholic liver disease [facility]* Diagnosis Hypokalemia Hypopotassemia documented in this encounter [facility]* Diagnosis Primary insomnia Persistent disorder of initiating or maintaining sleep [facility]* Diagnosis Calculus of gallbladder without cholecystitis without obstruction- Primary Calculus of gallbladder without mention of cholecystitis or obstruction Hepatic steatosis Other chronic nonalcoholic liver disease RUQ pain Abdominal pain, right upper quadrant Advanced hepatic fibrosis BMI 40.0-44.9, adult (HCC) Body Mass Index 40.0-44.9, adult [facility] this [facility]* Diagnosis Vitamin D deficiency Unspecified vitamin D deficiency Gastroesophageal reflux disease without esophagitis Esophageal reflux Belching Flatulence, eructation, and gas pain [facility]* Diagnosis Swelling of both hands Leg swelling Swelling of limb [facility]* Diagnosis Elevated LFTs Other abnormal blood chemistry Hepatic steatosis Other chronic nonalcoholic liver disease [facility] this [facility]* Diagnosis Encounter for observation for other suspected diseases and conditions ruled out [facility] this [facility]* Diagnosis Encounter for screening mammogram for breast cancer [facility]* Diagnosis Screening for colon cancer Special screening for malignant neoplasms, colon [facility]* Diagnosis Advanced hepatic fibrosis- Primary [facility]* Diagnosis Gallstones- Primary Calculus of gallbladder without mention of cholecystitis or obstruction Class 3 severe obesity with serious comorbidity and body mass index (BMI) of 40.0 to 44.9 in adult, unspecified obesity type (HCC) Nonalcoholic steatohepatitis (NAVA) Other chronic nonalcoholic liver disease SHAINA (obstructive sleep apnea) Obstructive sleep apnea (adult) (pediatric) Hyperlipidemia, unspecified hyperlipidemia type [facility]* Diagnosis Encounter for screening mammogram for breast cancer Calculus of gallbladder without cholecystitis without obstruction Calculus of gallbladder without mention of cholecystitis or obstruction [facility] this [facility]* Diagnosis Encounter for screening mammogram for breast cancer Calculus of gallbladder without cholecystitis without obstruction Calculus of gallbladder without mention of cholecystitis or obstruction [facility] this [facility]* Diagnosis Advanced hepatic fibrosis Calculus of gallbladder without cholecystitis without obstruction Calculus of gallbladder without mention of cholecystitis or obstruction [facility]* Diagnosis Status post laparoscopic cholecystectomy- Primary Other postprocedural status Class 3 severe obesity with serious comorbidity and body mass index (BMI) of 40.0 to 44.9 in adult, unspecified obesity type (HCC) Hepatic steatosis Other chronic nonalcoholic liver disease [facility]* Diagnosis Swelling of both hands Leg swelling Swelling of limb [facility] noteNo assessment information availableWMetro[facility] Work Phone: Evaluation note* Diagnosis Class 3 severe obesity with body mass index (BMI) of 40.0 to 44.9 in adult, unspecified obesity type, unspecified whether serious comorbidity present (HCC)- Primary Swelling of both hands Leg swelling Swelling of limb Mild persistent asthma without complication Unspecified asthma Anxiety with depression Acute pain of right knee [facility]* Diagnosis Hypokalemia Hypopotassemia [facility]* Diagnosis Gastroesophageal reflux disease without esophagitis Esophageal reflux Belching Flatulence, eructation, and gas pain [facility]* Diagnosis Mixed hyperlipidemia- Primary Class 3 severe obesity with body mass index (BMI) of 40.0 to 44.9 in adult, unspecified obesity type, unspecified whether serious comorbidity present (HCC) Gastroesophageal reflux disease without esophagitis Esophageal reflux Anxiety with depression Hepatic steatosis Other chronic nonalcoholic liver disease [facility]* Diagnosis SOB (shortness of breath) on exertion- Primary Shortness of breath Mixed hyperlipidemia Swelling of both hands [facility]* Diagnosis Acute cough [facility]* Diagnosis Foot pain, bilateral Pain in limb Bilateral cold feet SOB (shortness of breath) on exertion Shortness of breath [facility]* Diagnosis Acute constipation Unspecified constipation [facility]* Diagnosis Acute pain of left knee [facility]* Diagnosis Class 3 severe obesity with body mass index (BMI) of 40.0 to 44.9 in adult, unspecified obesity type, unspecified whether serious comorbidity present (HCC)- Primary Well adult exam Routine general medical examination at a health care facility Acute pain of right knee Mike's disease Chronic lymphocytic thyroiditis Elevated LFTs Other abnormal blood chemistry Vitamin D insufficiency Unspecified vitamin D deficiency Mixed hyperlipidemia Screening for diabetes mellitus RUQ pain Abdominal pain, right upper quadrant Hepatic steatosis Other chronic nonalcoholic liver disease Encounter for immunization Need for other specified prophylactic vaccination against single bacterial disease Encounter for screening mammogram for breast cancer RUQ pain Abdominal pain, right upper quadrant Hepatic steatosis Other chronic nonalcoholic liver disease [facility] this [facility]* Diagnosis RUQ pain Abdominal pain, right upper quadrant Hepatic steatosis Other chronic nonalcoholic liver disease [facility] this [facility]* Diagnosis Hypercalcemia- Primary [facility] this [facility]* Diagnosis SOB (shortness of breath) Shortness of breath [facility] this [facility]* Diagnosis Arthralgia of right knee [facility]* Diagnosis Swelling of both hands Leg swelling Swelling of limb [facility] this [facility]* Diagnosis Swelling of both hands Leg swelling Swelling of limb [facility] this [facility]* Diagnosis Low blood potassium- Primary Hypopotassemia [facility]* Diagnosis Acute cough- Primary URI with cough and congestion Acute cough [facility]* Diagnosis Acute cough [facility] this [facility]* Diagnosis Gastroesophageal reflux disease without esophagitis Esophageal reflux Belching Flatulence, eructation, and gas pain Hypokalemia Hypopotassemia Primary insomnia Persistent disorder of initiating or maintaining sleep [facility]* Diagnosis Hypokalemia Hypopotassemia Primary insomnia Persistent disorder of initiating or maintaining sleep Gastroesophageal reflux disease without esophagitis Esophageal reflux Belching Flatulence, eructation, and gas pain [facility]* Diagnosis Class 3 severe obesity with body mass index (BMI) of 40.0 to 44.9 in adult, unspecified obesity type, unspecified whether serious comorbidity present (HCC)- Primary Ear itching Unspecified pruritic disorder documented in this encounter [facility] note* Diagnosis Class 3 severe obesity with body mass index (BMI) of 40.0 to 44.9 in adult, unspecified obesity type, unspecified whether serious comorbidity present (HCC) [facility] Diagnosis Class 3 severe obesity with body mass index (BMI) of 40.0 to 44.9 in adult, unspecified obesity type, unspecified whether serious comorbidity present (HCC)- Primary IFG (impaired fasting glucose) Impaired fasting glucose documented in this encounter [facility] note* Diagnosis Vitamin D deficiency Unspecified vitamin D deficiency documented in this encounter [facility]* Diagnosis Diarrhea, unspecified type- Primary Nausea and vomiting, unspecified vomiting type documented in this encounter [facility]* Diagnosis Mike's disease- Primary Chronic lymphocytic thyroiditis Gastroesophageal reflux disease without esophagitis Esophageal reflux Belching Flatulence, eructation, and gas pain Class 3 severe obesity with body mass index (BMI) of 40.0 to 44.9 in adult, unspecified obesity type, unspecified whether serious comorbidity present (HCC) Mild persistent asthma without complication (HCC) Unspecified asthma Foot pain, bilateral Pain in limb Vitamin D deficiency Unspecified vitamin D deficiency Mixed hyperlipidemia Well adult exam Routine general medical examination at a health care facility Encounter for vitamin deficiency screening Screening for other and unspecified endocrine, nutritional, metabolic, and immunity disorders documented in this encounter [facility] note* Diagnosis Foot pain, bilateral Pain in limb documented in this encounter [facility]* Diagnosis Serum calcium elevated- Primary Hypercalcemia Leukocytosis, unspecified type Mike's disease Chronic lymphocytic thyroiditis documented in this encounter [facility] note* Diagnosis Plantar fasciitis- Primary Plantar fascial fibromatosis Foot pain, bilateral Pain in limb Neuroma Other benign neoplasm of connective and other soft tissue of unspecified site documented in this encounter [facility]* Diagnosis Class 3 severe obesity with body mass index (BMI) of 40.0 to 44.9 in adult, unspecified obesity type, unspecified whether serious comorbidity present (HCC)- Primary Mike's disease Chronic lymphocytic thyroiditis Fatty liver Other chronic nonalcoholic liver disease Hypokalemia Hypopotassemia Mixed hyperlipidemia IFG (impaired fasting glucose) Impaired fasting glucose documented in this encounter [facility] note* Diagnosis Encounter for screening mammogram for breast cancer [facility] Additional Instructions Ice, elevate and rest your left knee for pain and swelling. Motrin and Tylenol for pain and swelling. This may just be a muscle strain if it is not should improve if not improving you need to follow-up with orthopedics for further evaluation. I referred you to Dr. Max Sotelo. Crutches to help you get around if the pain is improving you can slowly start walking on it and bearing weight.[facility] Work Phone: Reason for referral (narrative)* Diagnostic Procedure Only (Routine) - Pending Review Specialty Diagnoses / Procedures Referred By Herman t Referred To Contact [facility] Diagnoses Encounter for screening mammogram for breast cancer Procedures JARETH SCREENING SCREENING MAMMOGRAPHY BI 2-VIEW BREAST INC CAD Stanley Sweeney DO [address] [place] [address] [facility] [address] [place] [address] Referral ID Status Reason Start Date Expiration Date Visits Requested Visits Authorized [id number] Pending Review Auto-Generat ed Referral 03/11/2022 04/10/[address] [facility] Outpatient Procedure (Routine) - Pending Review Specialty Diagnoses / Procedures Referred By Herman jara Referred To [facility] Diagnoses Mild persistent asthma without complication Wheezing SOB (shortness of breath) on exertion Decreased lung sounds Procedures METHACHOLINE CHALLENGE INHLJ BRNCL CHALLENGE TSTG W/HISTAM/METHACHOL Adia Robles APRN.CNP [address] [place] [address] [facility] [place] [address] [place] [address] Referral ID Status Reason Start Date Expiration Date Visits Requested Visits Authorized [id number] Pending Review Auto-Generat ed Referral 05/12/2022 06/11/2023 1 1 * Outpatient Procedure (Routine) - Pending Review Specialty Diagnoses / Procedures Referred By Herman t Referred To [facility] Diagnoses Mild persistent asthma without complication Wheezing SOB (shortness of breath) on exertion Decreased lung sounds Procedures SPIROMETRY - BASELINE AND POST DILATOR BRNCDILAT RSPSE SPMTRY PRE&POST-BRNCDILAT ADMN Adia Robles APRN.FLANGING ROLL OPERATOR [address] [place] [address] [facility] [address] [place] [address] Referral ID Status Reason Start Date Expiration Date Visits Requested Visits Authorized [id number] Pending Review Auto-Generat ed Referral 05/12/2022 06/11/2023 1 1 [facility] for referral (narrative)* Outpatient Procedure (Routine) - Authorized Specialty Diagnoses / Procedures Referred By Herman t Referred To Contact [facility] Diagnoses Foot pain, bilateral Bilateral cold feet Procedures PVR ANK PRESS PANDA VAS LAB NON-INVAS PHYSIOLOGIC STD EXTREMITY ART 2 LEVEL Adia Robles APRN.FLANGING ROLL OPERATOR [address] [place] [address] [facility] [place] [address] [place] [address] Referral ID Status Reason Start Date Expiration Date Visits Requested Visits Authorized [id number] Authorized Auto-Generat ed Referral 12/15/2022 04/10/2023 1 1 * Consult, Test, Treat (Routine) - Authorized Specialty Diagnoses / Procedures Referred By Contac t Referred To Contact Podiatry / [facility] Diagnoses Foot pain, bilateral Bilateral cold feet Procedures CONSULT TO PODIATRY OFFICE/OUTPATIENT [facility] 60-74 MINUTES Adia Robles APRN.FLANGING ROLL OPERATOR [address] [place] [address] [facility] [address] [address] [place] [address] Referral ID Status Reason Start Date Expiration Date Visits Requested Visits Authorized [id number] Authorized PCP Requested Referral 01/05/2023 04/10/2023 1 1 * Diagnostic Procedure Only (Routine) - Closed Specialty Diagnoses / Procedures Referred By Contac t Referred To Contact XR IMAGING Diagnoses Foot pain, bilateral Bilateral cold feet Procedures XR FOOT GENERAL 3V AP/LAT/OBL BILATERAL RADEX FOOT COMPLETE MINIMUM 3 VIEWS Adia Robles APRN.FLANGING ROLL OPERATOR [address] [place] [address] [place] [address] Referral ID Status Reason Start Date Expiration Date V isits Requested Visits Authorized [id number] Closed Auto-Generate d Referral 12/15/2022 04/10/2023 1 1 [facility] for referral (narrative)* Outpatient Procedure (Routine) - Authorized Specialty Diagnoses / Procedures Referred By Contac t Referred To Contact [facility] Diagnoses Hepatic steatosis Procedures DDI VIBRATION CONTROLLED TRANSIENT ELASTOGRAPHY (VCTE) LIVER ELASTOGRAPHY W/O IMAG W/I&R Adia Robles APRN.FLANGING ROLL OPERATOR [address] [place] [address] [facility] [place] [address] [place] [address] Referral ID Status Reason Start Date Expiration Date Visits Requested Visits Authorized [id number] Authorized Auto-Generat ed Referral 12/29/2022 12/30/2023 1 1 [facility] for referral (narrative)* Diagnostic Procedure Only (Routine) - Closed Specialty Diagnoses / Procedures Referred By Contac t Referred To Contact [facility] IMAGING Diagnoses Elevated LFTs Hepatic steatosis Procedures US ABD RIGHT UPPER QUADRANT US ABDOMINAL REAL TIME W/IMAGE LIMITED Adia Robles APRN.FLANGING ROLL OPERATOR [address] [place] [address] [place] [address] Referral ID Status Reason Start Date Expiration Date V isits Requested Visits Authorized [id number] Closed Auto-Generate d Referral 12/21/2022 04/10/2023 1 1 [facility] for referral (narrative)* Diagnostic Procedure Only (Routine) - Closed Specialty Diagnoses / Procedures Referred By Herman jara Referred To Contact [facility] Diagnoses Encounter for screening mammogram for breast cancer Procedures JARETH SCREENING SCREENING MAMMOGRAPHY BI 2-VIEW BREAST INC CAD Stanley Sweeney DO [address] [place] [address] [facility] [address] [place] [address] Referral ID Status Reason Start Date Expiration Date V isits Requested Visits Authorized [id number] Closed Auto-Generat ed Referral Patient Cleared - Admin/Chairm an/Director advise to proceed or did not respond 04/30/2022 04/10/2023 1 1 [facility] for referral (narrative)* Outpatient Procedure (Routine) - Closed Specialty Diagnoses / Procedures Referred By Herman jara Referred To Contact [facility] Diagnoses Screening for colon cancer Procedures COLONOSCOPY SCREENING COLONOSCOPY FLX DX W/COLLJ SPEC WHEN Deisi Mckee APRN.FLANGING ROLL OPERATOR [address] [place] [address] [facility] [place] [address] [place] [address] Referral ID Status Reason Start Date Expiration Date V isits Requested Visits Authorized [id number] Closed Auto-Generate d Referral 01/06/2023 01/07/2024 1 1 [facility] for referral (narrative)* Diagnostic Procedure Only (Routine) - Authorized Specialty Diagnoses / Procedures Referred By Herman jara Referred To Contact US IMAGING Diagnoses Advanced hepatic fibrosis Procedures US ABD SPLEEN US ABDOMINAL REAL TIME W/IMAGE LIMITED Candy Pabon APRN.CNP [address] [place] [address] Us Imaging [facility]95 Referral ID Status Reason Start Date Expiration Date Visits Requested Visits Authorized [id number] Authorized Auto-Generat ed Referral 06/28/2023 04/05/2024 1 1 * Diagnostic Procedure Only (Routine) - Authorized Specialty Diagnoses / Procedures Referred By Contac t Referred To Contact [facility] IMAGING Diagnoses Advanced hepatic fibrosis Procedures US ABD RIGHT UPPER QUADRANT US ABDOMINAL REAL TIME W/IMAGE LIMITED Candy Pabon APRN.FLANGING ROLL OPERATOR [address] [place] [address] Us Imaging [facility]95 Referral ID Status Reason Start Date Expiration Date Visits Requested Visits Authorized [id number] Authorized Auto-Generat ed Referral 06/28/2023 04/05/2024 1 1 [facility] for referral (narrative)* Diagnostic Procedure Only (Routine) - Closed Specialty Diagnoses / Procedures Referred By Contac t Referred To Contact [facility] Diagnoses Encounter for screening mammogram for breast cancer Procedures JARETH SCREENING SCREENING MAMMOGRAPHY BI 2-VIEW BREAST INC Stanley Jung DO [address] [place] [address] [facility] [address] [place] [address] Referral ID Status Reason Start Date Expiration Date V isits Requested Visits Authorized [id number] Closed Auto-Generate d Referral 06/22/2023 07/21/2024 1 1 [facility] for referral (narrative)* Diagnostic Procedure Only (Routine) - Closed Specialty Diagnoses / Procedures Referred By Contac t Referred To Contact [facility] IMAGING Diagnoses Advanced hepatic fibrosis Procedures US ABD SPLEEN US ABDOMINAL REAL TIME W/IMAGE LIMITED Candy Pabon APRN.FLANGING ROLL OPERATOR [address] [place] [address] [place] [address] Referral ID Status Reason Start Date Expiration Date V isits Requested Visits Authorized [id number] Closed Auto-Generate d Referral 06/28/2023 04/05/2024 1 1 * Diagnostic Procedure Only (Routine) - Closed Specialty Diagnoses / Procedures Referred By Contac t Referred To Contact US IMAGING Diagnoses Advanced hepatic fibrosis Procedures US ABD RIGHT UPPER QUADRANT US ABDOMINAL REAL TIME W/IMAGE LIMITED Candy Pabon APRN.CNP [address] [place] [id number] Us Imaging [place] [address] Referral ID Status Reason Start Date Expiration Date V isits Requested Visits Authorized [id number] Closed Auto-Generate d Referral 06/28/2023 04/05/2024 1 1 [facility] for referral (narrative)* Outpatient Procedure (Routine) - Closed Specialty Diagnoses / Procedures Referred By Contac t Referred To Contact [facility] Diagnoses SOB (shortness of breath) on exertion Mixed hyperlipidemia Swelling of both hands Procedures ECHO ECHO TTHRC R-T 2D W/WOM-MODE COMPL SPEC&COLR D Stanley Sweeney DO [address] [place] [address] [facility] [place] [address] [place] [id number] Referral ID Status Reason Start Date Expiration Date V isits Requested Visits Authorized [id number] Closed Auto-Generate d Referral 12/23/2022 04/10/2023 1 1 [facility] for referral (narrative)* Diagnostic Procedure Only (Routine) - Closed Specialty Diagnoses / Procedures Referred By Contac t Referred To Contact XR IMAGING Diagnoses Foot pain, bilateral Bilateral cold feet Procedures XR FOOT GENERAL 3V AP/LAT/OBL BILATERAL RADEX FOOT COMPLETE MINIMUM 3 VIEWS Adia Robles APRN.FLANGING ROLL OPERATOR [address] [place] [address] [place] [address] Referral ID Status Reason Start Date Expiration Date V isits Requested Visits Authorized [id number] Closed Auto-Generate d Referral 12/15/2022 04/10/2023 1 1 [facility] for referral (narrative)* Diagnostic Procedure Only (Urgent) - Closed Specialty Diagnoses / Procedures Referred By Contac t Referred To Contact XR IMAGING Diagnoses Acute pain of left knee Procedures XR KNEE GENERAL 4V AP BOTH/PA BOTH/LAT/MERC LEFT KNEE AP-WGT/LAT/MERCHANT Katrin Ceballos APRN.FLANGING ROLL OPERATOR [address] [place] [address] [place] [address] Referral ID Status Reason Start Date Expiration Date V isits Requested Visits Authorized [id number] Closed Auto-Generate d Referral 03/06/2021 04/05/2022 1 1 [facility] for referral (narrative)* Diagnostic Procedure Only (Routine) - Closed Specialty Diagnoses / Procedures Referred By Contac t Referred To Contact [facility] IMAGING Diagnoses RUQ pain Hepatic steatosis Procedures US ABD RIGHT UPPER QUADRANT US ABDOMINAL REAL TIME W/IMAGE LIMITED Adia Robles APRN.FLANGING ROLL OPERATOR [address] [place] [address] [place] [address] Referral ID Status Reason Start Date Expiration Date V isits Requested Visits Authorized [id number] Closed Auto-Generate d Referral 01/05/2024 02/03/2025 1 1 * Diagnostic Procedure Only (Routine) - Authorized Specialty Diagnoses / Procedures Referred By Contac t Referred To Contact [facility] Diagnoses Encounter for screening mammogram for breast cancer Well adult exam Procedures JARETH SCREENING W JEFE SCREENING DIGITAL BREAST TOMOSYNTHESIS BI SCREENING MAMMOGRAPHY BI 2-VIEW BREAST INC CAD Adia Robles, CONSULTING ACTUARY.FLANGING ROLL OPERATOR [address] [place] [address] [facility] [address] [place] [address] Referral ID Status Reason Start Date Expiration Date Visits Requested Visits Authorized [id number] Authorized Auto-Generat ed Referral 01/05/2024 02/03/2025 1 1 [facility] for referral (narrative)* Diagnostic Procedure Only (Routine) - Closed Specialty Diagnoses / Procedures Referred By Herman t Referred To Contact [facility] IMAGING Diagnoses RUQ pain Hepatic steatosis Procedures US ABD RIGHT UPPER QUADRANT US ABDOMINAL REAL TIME W/IMAGE LIMITED Adia Robles APRN.FLANGING ROLL OPERATOR [address] [place] [address] [place] [address] Referral ID Status Reason Start Date Expiration Date V isits Requested Visits Authorized [id number] Closed Auto-Generate d Referral 01/05/2024 02/03/2025 1 1 [facility] for visit Narrative* Diagnostic Procedure Only (Routine) - Closed Specialty Diagnoses / Procedures Referred By Herman t Referred To Contact [facility] Diagnoses Encounter for screening mammogram for breast cancer Procedures JARETH SCREENING SCREENING MAMMOGRAPHY BI 2-VIEW BREAST INC CAD Stanley Sweeney, DO [address] [place] [address] [facility] [address] [place] [address] Referral ID Status Reason Start Date Expiration Date V isits Requested Visits Authorized [id number] Closed Auto-Generat ed Referral Patient Cleared - Admin/Chairm an/Director advise to proceed or did not respond 04/30/2022 04/10/2023 1 1 [facility] for visit Narrative* Outpatient Procedure (Routine) - Closed Specialty Diagnoses / Procedures Referred By Contac t Referred To Contact [facility] Diagnoses Screening for colon cancer Procedures COLONOSCOPY SCREENING COLONOSCOPY FLX DX W/COLLJ SPEC WHEN Deisi Mckee APRN.FLANGING ROLL OPERATOR [address] [place] [address] [facility] [place] [address] [place] [address] Referral ID Status Reason Start Date Expiration Date V isits Requested Visits Authorized [id number] Closed Auto-Generate d Referral 01/06/2023 01/07/2024 1 1 [facility] for visit Narrative* Diagnostic Procedure Only (Routine) - Closed Specialty Diagnoses / Procedures Referred By Contac t Referred To Contact [facility] Diagnoses Encounter for screening mammogram for breast cancer Procedures JARETH SCREENING SCREENING MAMMOGRAPHY BI 2-VIEW BREAST INC CAD Stanley Sweeney, DO [address] [place] [address] [facility] [address] [place] [address] Referral ID Status Reason Start Date Expiration Date V isits Requested Visits Authorized [id number] Closed Auto-Generate d Referral 06/22/2023 07/21/2024 1 1 [facility] for visit Narrative* Diagnostic Procedure Only (Routine) - Closed Specialty Diagnoses / Procedures Referred By Contac t Referred To Contact [facility] IMAGING Diagnoses Advanced hepatic fibrosis Procedures US ABD SPLEEN US ABDOMINAL REAL TIME W/IMAGE LIMITED Candy Pabon, CONSULTING ACTUARY.FLANGING ROLL OPERATOR [address] [place] [address] [place] [address] Referral ID Status Reason Start Date Expiration Date V isits Requested Visits Authorized [id number] Closed Auto-Generate d Referral 06/28/2023 04/05/2024 1 1 [facility] for visit Narrative* Diagnostic Procedure Only (Routine) - Closed Specialty Diagnoses / Procedures Referred By Contac t Referred To Contact XR IMAGING Diagnoses Foot pain, bilateral Bilateral cold feet Procedures XR FOOT GENERAL 3V AP/LAT/OBL BILATERAL RADEX FOOT COMPLETE MINIMUM 3 VIEWS Adia Robles, CONSULTING ACTUARY.FLANGING ROLL OPERATOR [address] [place] [address] [place] [address] Referral ID Status Reason Start Date Expiration Date V isits Requested Visits Authorized [id number] Closed Auto-Generate d Referral 12/15/2022 04/10/2023 1 1 [facility] for visit Narrative* Diagnostic Procedure Only (Urgent) - Closed Specialty Diagnoses / Procedures Referred By Contac t Referred To Contact XR IMAGING Diagnoses Acute pain of left knee Procedures XR KNEE GENERAL 4V AP BOTH/PA BOTH/LAT/MERC LEFT KNEE AP-WGT/LAT/MERCCURTIST Katrin Ceballos, CONSULTING ACTUARY.FLANGING ROLL OPERATOR [address] [place] [address] [place] [address] Referral ID Status Reason Start Date Expiration Date V isits Requested Visits Authorized [id number] Closed Auto-Generate d Referral 03/06/2021 04/05/2022 1 1 [facility] for visit Narrative* Diagnostic Procedure Only (Routine) - Closed Specialty Diagnoses / Procedures Referred By Contselina t Referred To Contact XR IMAGING Diagnoses Foot pain, bilateral Procedures XR FOOT GENERAL 3V AP/LAT/OBL BILATERAL RADEX FOOT COMPLETE MINIMUM 3 VIEWS Adia Robles, CONSULTING ACTUARY.FLANGING ROLL OPERATOR [address] [place] [address] Phone: tel: fax: [place] [address] Referral ID Status Reason Start Date Expiration Date V isits Requested Visits Authorized [id number] Closed Auto-Generate d Referral 07/18/2024 08/17/2025 1 1 [facility] for visit Narrative* Diagnostic Procedure Only (Routine) - Closed Specialty Diagnoses / Procedures Referred By Herman t Referred To Contact [facility] Diagnoses Encounter for screening mammogram for breast cancer Procedures JARETH SCREENING W JEFE SCREENING DIGITAL BREAST TOMOSYNTHESIS BI SCREENING MAMMOGRAPHY BI 2-VIEW BREAST INC Stanley Jung L, DO [address] [place] [address] Phone: tel: fax: [facility] [address] [facility] [place] [address] Referral ID Status Reason Start Date Expiration Date V isits Requested Visits Authorized [id number] Closed Auto-Generate d Referral 12/04/2024 01/03/[address] 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 Advance Directive(s) 09/13/2016 3:27 PM Documents on File Type Date Recorded 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 Advance Directive(s) 09/13/2016 3:27 PM Advance Directive Response Recorded Date/ Time Living Will No July 29, 2023 8:54am Power of Buckle Sewer No July 28 8:54am Reason for Referral Specialty Diagnoses / Procedures Referred By Contac t Referred To Contact Orthopedics Diagnoses Acute pain of left knee Effusion, left knee Procedures CONSULT TO ORTHOPAEDICS OFFICE/OUTPATIENT [facility] 60-74 MINUTES Tuan Oleary MD [address] [place] [address] [place] [address] Referral ID Status Reason Start Date Expiration Date Visits Requested Visits Authorized [id number] Authorized PCP Requested Referral 08/07/2021 04/10/2022 1 1 Specialty Diagnoses / Procedures Referred By Contac t Referred To Contact Ent - Otolaryngology Diagnoses Bilateral hearing loss, unspecified hearing loss type Procedures CONSULT TO ENT OFFICE/OUTPATIENT [facility] 60-74 MINUTES Adia Robles, CONSULTING ACTUARY.FLANGING ROLL OPERATOR [address] [place] [address] Referral ID Status Reason Start Date Expiration Date Visits Requested Visits Authorized [id number] Pending Review PCP Requested Referral 06/23/2022 06/23/2023 1 1 Specialty Diagnoses / Procedures Referred By Contac t Referred [facility] Contact [facility] Diagnoses Chest pain, unspecified type Shortness of breath Chest pressure Procedures ECHO ECHO TTHRC R-T 2D W/WOM-MODE COMPL SPEC&COLR D Adia Robles, CONSULTING ACTUARY.FLANGING ROLL OPERATOR [address] [place] [address] [facility] [place] [address] [place] [address] Referral ID Status Reason Start Date Expiration Date Visits Requested Visits Authorized [id number] Waiting for Online Response Auto-Generat ed Referral 06/23/2022 06/23/2023 1 1 Specialty Diagnoses / Procedures Referred By Contac t Referred To Contact XR IMAGING Diagnoses Acute constipation Procedures XR ABDOMEN 1V SUPINE RADIOLOGIC EXAM ABDOMEN 1 VIEW Katrin Ceballos, CONSULTING ACTUARY.FLANGING ROLL OPERATOR [address] [place] [address] X[facility] Imaging Referral ID Status Reason Start Date Expiration Date V isits Requested Visits Authorized [id number] Closed Auto-Generated Referral Clearance Not Met -Financial Clearance Bypassed 07/02/2022 04/10/2023 1 1 Specialty Diagnoses / Procedures Referred By Contac t Referred To Contact Diagnoses BMI 40.0-44.9, adult (HCC) Procedures ENDOCRINE MEDICAL WEIGHT MANAGEMENT OFFICE/OUTPATIENT [facility] 60-74 MINUTES Candy Pabon, AYLIN.FLANGING ROLL OPERATOR [address] [place] [address] Referral ID Status Reason Start Date Expiration Date Visits Requested Visits Authorized [id number] Pending Review PCP Requested Referral 3 01/26/2024 1 1 Specialty Diagnoses / Procedures Referred By Contac t Referred To Contact General Surgery Diagnoses Calculus of gallbladder without cholecystitis without obstruction RUQ pain Procedures CONSULT TO GENERAL SURGERY OFFICE/OUTPATIENT [facility] 60-74 MINUTES Candy Pabon, CONSULTING ACTUARY.[employer]ATOR [address] [place] [id number] Referral ID Status Reason Start Date Expiration Date Visits Requested Visits Authorized [id number] Pending Review PCP Requested Referral 3 01/26/2024 1 1 Specialty Diagnoses / Procedures Referred By Contac t Referred To Contact MR IMAGING Diagnoses Encounter for observation for other suspected diseases and conditions ruled out Procedures MRI FOOT/TOES WO IVCON LEFT MRI LOWER EXTREM OTH/THN JT W/O CONTR Eren Pizarro [address] [place] [address] [place] [address] Referral ID Status Reason Start Date Expiration Date V isits Requested Visits Authorized [id number] Closed Auto-Generate d Referral 01/07/2023 02/21/2023 1 1 Specialty Diagnoses / Procedures Referred By Contac t Referred To Contact Diagnoses Gallstones Procedures CONSULT TO PRE-SURGICAL TESTING (AG) Ginna Agarwal MD [address] [place] [address] Referral ID Status Reason Start Date Expiration Date Visits Requested Visits Authorized [id number] Ref Not Required PCP Requested Referral 05/25/2023 08/23/2023 1 1 Specialty Diagnoses / Procedures Referred By Contac t Referred To Contact [facility] Diagnoses Gallstones Procedures ECG COMPLETE ECG ROUTINE ECG W/LEAST 12 LDS W/I&R Ginna Agarwal MD [address] [place] [address] [facility] [place] [address] [place] [address] Referral ID Status Reason Start Date Expiration Date Visits Requested Visits Authorized [id number] Pending Review Auto-Generat ed Referral 05/25/2023 05/24/2024 1 1 Specialty Diagnoses / Procedures Referred By Contac t Referred To Contact XR IMAGING Diagnoses Acute constipation Procedures XR ABDOMEN 1V SUPINE RADIOLOGIC EXAM ABDOMEN 1 VIEW Katrin Ceballos, CONSULTING ACTUARY.[employer] OPERATOR [address] [place] [address] [place] [address] Health Concerns Infection Onset Date Last Indicated Resolved Time COVID-19 Rule-Out 12/20/2022 12/20/2022 Infection Onset Date Last Indicated Resolved Time COVID-19 Rule-Out 12/20/2022 12/20/2022 12/21/2022 8:37 AM EDT Medications Administered Section Inactive Administered Medications - up to 3 most recent administrations Medication Order MAR Action Action Date Dose Rate Site fentaNYL 50 mcg/mL injection (SUBLIMAZE) INTRAVENOUS, X (OR/PROCEDURE) PRN, Starting on Tue02/25/23 at 1231, Until Tue02/25/23 at 1231, Intraprocedure Given 02/25/2023 12:31 PM EST 50 mcg midazolam (PF) injection (VERSED) INTRAVENOUS, X (OR/PROCEDURE) PRN, Starting on Tue02/25/23 at 1231, Until Tue02/25/23 at 1233, Intraprocedure Given 02/25/2023 12:33 PM EST 1 mg Given 02/25/2023 12:31 PM EST 3 mg NaCl 0.9% iv infusion 30 mL/hr, INTRAVENOUS, CONTINUOUS, Starting on 02/25/23 at 1130, Until 02/26/23 at 0429, Preprocedure New Bag/Syringe/Bottle 02/25/2023 11:32 AM EST 30 mL/hr 30 mL/hr Chief Complaint and Reason for Visit Chief Complaint R KNEE PAIN Additional Source Comments INFORMATION SOURCE (unrecogn ized section and content) DATE CREATED AUTHOR 10/04/2017 [facility] DATE CREATED AUTHOR AUTHOR'S ORGANIZ ATION 10/28/2019 [facility] DATE CREATED AUTHOR AUTHOR'S ORGANIZ ATION 06/16/2022 [facility] DATE CREATED AUTHOR AUTHOR'S ORGANIZ ATION 07/21/2023 [facility] DATE CREATED AUTHOR AUTHOR'S ORGANIZ ATION 05/03/2024 [facility] DATE CREATED AUTHOR AUTHOR'S ORGANIZ ATION 02/21/2025 [facility] Source Comments (unrecognize d section and content) In the event this informatio n is protected by the Federal Confidentiality of Alcohol and Drug Abuse Patient Records regulations: The Federal rules restrict any use of the information to criminally investigate or prosecute any alcohol or drug abuse patient.[facility] the event this information is protected by the Federal Confidentiality of Alcohol and Drug Abuse Patient Records regulations: The Federal rules restrict any use of the information to criminally investigate or prosecute any alcohol or drug abuse patient.[facility] HospitalIn the event this information is protected by the Federal Confidentiality of Alcohol and Drug Abuse Patient Records regulations: The Federal rules restrict any use of the information to criminally investigate or prosecute any alcohol or drug abuse patient.[facility] HospitalIn the event this information is protected by the Federal Confidentiality of Alcohol and Drug Abuse Patient Records regulations: The Federal rules restrict any use of the information to criminally investigate or prosecute any alcohol or drug abuse patient.[facility] HospitalIn the event this information is protected by the Federal Confidentiality of Alcohol and Drug Abuse Patient Records regulations: The Federal rules restrict any use of the information to criminally investigate or prosecute any alcohol or drug abuse patient.[facility] HospitalIn the event this information is protected by the Federal Confidentiality of Alcohol and Drug Abuse Patient Records regulations: The Federal rules restrict any use of the information to criminally investigate or prosecute any alcohol or drug abuse patient.[facility] HospitalIn the event this information is protected by the Federal Confidentiality of Alcohol and Drug Abuse Patient Records regulations: The Federal rules restrict any use of the information to criminally investigate or prosecute any alcohol or drug abuse patient.[facility] HospitalIn the event this information is protected by the Federal Confidentiality of Alcohol and Drug Abuse Patient Records regulations: The Federal rules restrict any use of the information to criminally investigate or prosecute any alcohol or drug abuse patient.[facility] HospitalIn the event this information is protected by the Federal Confidentiality of Alcohol and Drug Abuse Patient Records regulations: The Federal rules restrict any use of the information to criminally investigate or prosecute any alcohol or drug abuse patient.[facility] HospitalIn the event this information is protected by the Federal Confidentiality of Alcohol and Drug Abuse Patient Records regulations: The Federal rules restrict any use of the information to criminally investigate or prosecute any alcohol or drug abuse patient.[facility] HospitalIn the event this information is protected by the Federal Confidentiality of Alcohol and Drug Abuse Patient Records regulations: The Federal rules restrict any use of the information to criminally investigate or prosecute any alcohol or drug abuse patient.[facility] HospitalIn the event this information is protected by the Federal Confidentiality of Alcohol and Drug Abuse Patient Records regulations: The Federal rules restrict any use of the information to criminally investigate or prosecute any alcohol or drug abuse patient.[facility] HospitalIn the event this information is protected by the Federal Confidentiality of Alcohol and Drug Abuse Patient Records regulations: The Federal rules restrict any use of the information to criminally investigate or prosecute any alcohol or drug abuse patient.[facility] HospitalIn the event this information is protected by the Federal Confidentiality of Alcohol and Drug Abuse Patient Records regulations: The Federal rules restrict any use of the information to criminally investigate or prosecute any alcohol or drug abuse patient.[facility] HospitalIn the event this information is protected by the Federal Confidentiality of Alcohol and Drug Abuse Patient Records regulations: The Federal rules restrict any use of the information to criminally investigate or prosecute any alcohol or drug abuse patient.[facility] HospitalIn the event this information is protected by the Federal Confidentiality of Alcohol and Drug Abuse Patient Records regulations: The Federal rules restrict any use of the information to criminally investigate or prosecute any alcohol or drug abuse patient.[facility] HospitalIn the event this information is protected by the Federal Confidentiality of Alcohol and Drug Abuse Patient Records regulations: The Federal rules restrict any use of the information to criminally investigate or prosecute any alcohol or drug abuse patient.[facility] HospitalIn the event this information is protected by the Federal Confidentiality of Alcohol and Drug Abuse Patient Records regulations: The Federal rules restrict any use of the information to criminally investigate or prosecute any alcohol or drug abuse patient.[facility] HospitalIn the event this information is protected by the Federal Confidentiality of Alcohol and Drug Abuse Patient Records regulations: The Federal rules restrict any use of the information to criminally investigate or prosecute any alcohol or drug abuse patient.[facility] HospitalIn the event this information is protected by the Federal Confidentiality of Alcohol and Drug Abuse Patient Records regulations: The Federal rules restrict any use of the information to criminally investigate or prosecute any alcohol or drug abuse patient.[facility] HospitalIn the event this information is protected by the Federal Confidentiality of Alcohol and Drug Abuse Patient Records regulations: The Federal rules restrict any use of the information to criminally investigate or prosecute any alcohol or drug abuse patient.[facility] HospitalIn the event this information is protected by the Federal Confidentiality of Alcohol and Drug Abuse Patient Records regulations: The Federal rules restrict any use of the information to criminally investigate or prosecute any alcohol or drug abuse patient.[facility] HospitalIn the event this information is protected by the Federal Confidentiality of Alcohol and Drug Abuse Patient Records regulations: The Federal rules restrict any use of the information to criminally investigate or prosecute any alcohol or drug abuse patient.[facility] HospitalIn the event this information is protected by the Federal Confidentiality of Alcohol and Drug Abuse Patient Records regulations: The Federal rules restrict any use of the information to criminally investigate or prosecute any alcohol or drug abuse patient.[facility] HospitalIn the event this information is protected by the Federal Confidentiality of Alcohol and Drug Abuse Patient Records regulations: The Federal rules restrict any use of the information to criminally investigate or prosecute any alcohol or drug abuse patient.[facility] HospitalIn the event this information is protected by the Federal Confidentiality of Alcohol and Drug Abuse Patient Records regulations: The Federal rules restrict any use of the information to criminally investigate or prosecute any alcohol or drug abuse patient.[facility] HospitalIn the event this information is protected by the Federal Confidentiality of Alcohol and Drug Abuse Patient Records regulations: The Federal rules restrict any use of the information to criminally investigate or prosecute any alcohol or drug abuse patient.[facility] HospitalIn the event this information is protected by the Federal Confidentiality of Alcohol and Drug Abuse Patient Records regulations: The Federal rules restrict any use of the information to criminally investigate or prosecute any alcohol or drug abuse patient.[facility] HospitalIn the event this information is protected by the Federal Confidentiality of Alcohol and Drug Abuse Patient Records regulations: The Federal rules restrict any use of the information to criminally investigate or prosecute any alcohol or drug abuse patient.[facility] HospitalIn the event this information is protected by the Federal Confidentiality of Alcohol and Drug Abuse Patient Records regulations: The Federal rules restrict any use of the information to criminally investigate or prosecute any alcohol or drug abuse patient.[facility] HospitalIn the event this information is protected by the Federal Confidentiality of Alcohol and Drug Abuse Patient Records regulations: The Federal rules restrict any use of the information to criminally investigate or prosecute any alcohol or drug abuse patient.[facility] HospitalIn the event this information is protected by the Federal Confidentiality of Alcohol and Drug Abuse Patient Records regulations: The Federal rules restrict any use of the information to criminally investigate or prosecute any alcohol or drug abuse patient.[facility] HospitalIn the event this information is protected by the Federal Confidentiality of Alcohol and Drug Abuse Patient Records regulations: The Federal rules restrict any use of the information to criminally investigate or prosecute any alcohol or drug abuse patient.[facility] HospitalIn the event this information is protected by the Federal Confidentiality of Alcohol and Drug Abuse Patient Records regulations: The Federal rules restrict any use of the information to criminally investigate or prosecute any alcohol or drug abuse patient.[facility] HospitalIn the event this information is protected by the Federal Confidentiality of Alcohol and Drug Abuse Patient Records regulations: The Federal rules restrict any use of the information to criminally investigate or prosecute any alcohol or drug abuse patient.[facility] HospitalIn the event this information is protected by the Federal Confidentiality of Alcohol and Drug Abuse Patient Records regulations: The Federal rules restrict any use of the information to criminally investigate or prosecute any alcohol or drug abuse patient.[facility] HospitalIn the event this information is protected by the Federal Confidentiality of Alcohol and Drug Abuse Patient Records regulations: The Federal rules restrict any use of the information to criminally investigate or prosecute any alcohol or drug abuse patient.[facility] HospitalIn the event this information is protected by the Federal Confidentiality of Alcohol and Drug Abuse Patient Records regulations: The Federal rules restrict any use of the information to criminally investigate or prosecute any alcohol or drug abuse patient.[facility] HospitalIn the event this information is protected by the Federal Confidentiality of Alcohol and Drug Abuse Patient Records regulations: The Federal rules restrict any use of the information to criminally investigate or prosecute any alcohol or drug abuse patient.[facility] HospitalIn the event this information is protected by the Federal Confidentiality of Alcohol and Drug Abuse Patient Records regulations: The Federal rules restrict any use of the information to criminally investigate or prosecute any alcohol or drug abuse patient.[facility] HospitalIn the event this information is protected by the Federal Confidentiality of Alcohol and Drug Abuse Patient Records regulations: The Federal rules restrict any use of the information to criminally investigate or prosecute any alcohol or drug abuse patient.[facility] HospitalIn the event this information is protected by the Federal Confidentiality of Alcohol and Drug Abuse Patient Records regulations: The Federal rules restrict any use of the information to criminally investigate or prosecute any alcohol or drug abuse patient.[facility] HospitalIn the event this information is protected by the Federal Confidentiality of Alcohol and Drug Abuse Patient Records regulations: The Federal rules restrict any use of the information to criminally investigate or prosecute any alcohol or drug abuse patient.[facility] HospitalIn the event this information is protected by the Federal Confidentiality of Alcohol and Drug Abuse Patient Records regulations: The Federal rules restrict any use of the information to criminally investigate or prosecute any alcohol or drug abuse patient.[facility] HospitalIn the event this information is protected by the Federal Confidentiality of Alcohol and Drug Abuse Patient Records regulations: The Federal rules restrict any use of the information to criminally investigate or prosecute any alcohol or drug abuse patient.[facility] HospitalIn the event this information is protected by the Federal Confidentiality of Alcohol and Drug Abuse Patient Records regulations: The Federal rules restrict any use of the information to criminally investigate or prosecute any alcohol or drug abuse patient.[facility] HospitalIn the event this information is protected by the Federal Confidentiality of Alcohol and Drug Abuse Patient Records regulations: The Federal rules restrict any use of the information to criminally investigate or prosecute any alcohol or drug abuse patient.[facility] HospitalIn the event this information is protected by the Federal Confidentiality of Alcohol and Drug Abuse Patient Records regulations: The Federal rules restrict any use of the information to criminally investigate or prosecute any alcohol or drug abuse patient.[facility] HospitalIn the event this information is protected by the Federal Confidentiality of Alcohol and Drug Abuse Patient Records regulations: The Federal rules restrict any use of the information to criminally investigate or prosecute any alcohol or drug abuse patient.[facility] HospitalIn the event this information is protected by the Federal Confidentiality of Alcohol and Drug Abuse Patient Records regulations: The Federal rules restrict any use of the information to criminally investigate or prosecute any alcohol or drug abuse patient.[facility] HospitalIn the event this information is protected by the Federal Confidentiality of Alcohol and Drug Abuse Patient Records regulations: The Federal rules restrict any use of the information to criminally investigate or prosecute any alcohol or drug abuse patient.[facility] HospitalIn the event this information is protected by the Federal Confidentiality of Alcohol and Drug Abuse Patient Records regulations: The Federal rules restrict any use of the information to criminally investigate or prosecute any alcohol or drug abuse patient.[facility] HospitalIn the event this information is protected by the Federal Confidentiality of Alcohol and Drug Abuse Patient Records regulations: The Federal rules restrict any use of the information to criminally investigate or prosecute any alcohol or drug abuse patient.[facility] HospitalIn the event this information is protected by the Federal Confidentiality of Alcohol and Drug Abuse Patient Records regulations: The Federal rules restrict any use of the information to criminally investigate or prosecute any alcohol or drug abuse patient.[facility] HospitalIn the event this information is protected by the Federal Confidentiality of Alcohol and Drug Abuse Patient Records regulations: The Federal rules restrict any use of the information to criminally investigate or prosecute any alcohol or drug abuse patient.[facility] HospitalIn the event this information is protected by the Federal Confidentiality of Alcohol and Drug Abuse Patient Records regulations: The Federal rules restrict any use of the information to criminally investigate or prosecute any alcohol or drug abuse patient.[facility] HospitalIn the event this information is protected by the Federal Confidentiality of Alcohol and Drug Abuse Patient Records regulations: The Federal rules restrict any use of the information to criminally investigate or prosecute any alcohol or drug abuse patient.[facility] HospitalIn the event this information is protected by the Federal Confidentiality of Alcohol and Drug Abuse Patient Records regulations: The Federal rules restrict any use of the information to criminally investigate or prosecute any alcohol or drug abuse patient.[facility] HospitalIn the event this information is protected by the Federal Confidentiality of Alcohol and Drug Abuse Patient Records regulations: The Federal rules restrict any use of the information to criminally investigate or prosecute any alcohol or drug abuse patient.[facility] HospitalIn the event this information is protected by the Federal Confidentiality of Alcohol and Drug Abuse Patient Records regulations: The Federal rules restrict any use of the information to criminally investigate or prosecute any alcohol or drug abuse patient.[facility] HospitalIn the event this information is protected by the Federal Confidentiality of Alcohol and Drug Abuse Patient Records regulations: The Federal rules restrict any use of the information to criminally investigate or prosecute any alcohol or drug abuse patient.[facility] HospitalIn the event this information is protected by the Federal Confidentiality of Alcohol and Drug Abuse Patient Records regulations: The Federal rules restrict any use of the information to criminally investigate or prosecute any alcohol or drug abuse patient.[facility] HospitalIn the event this information is protected by the Federal Confidentiality of Alcohol and Drug Abuse Patient Records regulations: The Federal rules restrict any use of the information to criminally investigate or prosecute any alcohol or drug abuse patient.[facility] HospitalIn the event this information is protected by the Federal Confidentiality of Alcohol and Drug Abuse Patient Records regulations: The Federal rules restrict any use of the information to criminally investigate or prosecute any alcohol or drug abuse patient.[facility] HospitalIn the event this information is protected by the Federal Confidentiality of Alcohol and Drug Abuse Patient Records regulations: The Federal rules restrict any use of the information to criminally investigate or prosecute any alcohol or drug abuse patient.[facility] HospitalIn the event this information is protected by the Federal Confidentiality of Alcohol and Drug Abuse Patient Records regulations: The Federal rules restrict any use of the information to criminally investigate or prosecute any alcohol or drug abuse patient.[facility] HospitalIn the event this information is protected by the Federal Confidentiality of Alcohol and Drug Abuse Patient Records regulations: The Federal rules restrict any use of the information to criminally investigate or prosecute any alcohol or drug abuse patient.[facility] HospitalIn the event this information is protected by the Federal Confidentiality of Alcohol and Drug Abuse Patient Records regulations: The Federal rules restrict any use of the information to criminally investigate or prosecute any alcohol or drug abuse patient.[facility] HospitalIn the event this information is protected by the Federal Confidentiality of Alcohol and Drug Abuse Patient Records regulations: The Federal rules restrict any use of the information to criminally investigate or prosecute any alcohol or drug abuse patient.[facility] HospitalIn the event this information is protected by the Federal Confidentiality of Alcohol and Drug Abuse Patient Records regulations: The Federal rules restrict any use of the information to criminally investigate or prosecute any alcohol or drug abuse patient.[facility] HospitalIn the event this information is protected by the Federal Confidentiality of Alcohol and Drug Abuse Patient Records regulations: The Federal rules restrict any use of the information to criminally investigate or prosecute any alcohol or drug abuse patient.[facility] HospitalIn the event this information is protected by the Federal Confidentiality of Alcohol and Drug Abuse Patient Records regulations: The Federal rules restrict any use of the information to criminally investigate or prosecute any alcohol or drug abuse patient.[facility] HospitalIn the event this information is protected by the Federal Confidentiality of Alcohol and Drug Abuse Patient Records regulations: The Federal rules restrict any use of the information to criminally investigate or prosecute any alcohol or drug abuse patient.[facility] HospitalIn the event this information is protected by the Federal Confidentiality of Alcohol and Drug Abuse Patient Records regulations: The Federal rules restrict any use of the information to criminally investigate or prosecute any alcohol or drug abuse patient.[facility] HospitalIn the event this information is protected by the Federal Confidentiality of Alcohol and Drug Abuse Patient Records regulations: The Federal rules restrict any use of the information to criminally investigate or prosecute any alcohol or drug abuse patient.[facility] HospitalIn the event this information is protected by the Federal Confidentiality of Alcohol and Drug Abuse Patient Records regulations: The Federal rules restrict any use of the information to criminally investigate or prosecute any alcohol or drug abuse patient.[facility] HospitalIn the event this information is protected by the Federal Confidentiality of Alcohol and Drug Abuse Patient Records regulations: The Federal rules restrict any use of the information to criminally investigate or prosecute any alcohol or drug abuse patient.[facility] HospitalIn the event this information is protected by the Federal Confidentiality of Alcohol and Drug Abuse Patient Records regulations: The Federal rules restrict any use of the information to criminally investigate or prosecute any alcohol or drug abuse patient.[facility] HospitalIn the event this information is protected by the Federal Confidentiality of Alcohol and Drug Abuse Patient Records regulations: The Federal rules restrict any use of the information to criminally investigate or prosecute any alcohol or drug abuse patient.[facility] HospitalIn the event this information is protected by the Federal Confidentiality of Alcohol and Drug Abuse Patient Records regulations: The Federal rules restrict any use of the information to criminally investigate or prosecute any alcohol or drug abuse patient.[facility] HospitalIn the event this information is protected by the Federal Confidentiality of Alcohol and Drug Abuse Patient Records regulations: The Federal rules restrict any use of the information to criminally investigate or prosecute any alcohol or drug abuse patient.[facility] HospitalIn the event this information is protected by the Federal Confidentiality of Alcohol and Drug Abuse Patient Records regulations: The Federal rules restrict any use of the information to criminally investigate or prosecute any alcohol or drug abuse patient.[facility] HospitalIn the event this information is protected by the Federal Confidentiality of Alcohol and Drug Abuse Patient Records regulations: The Federal rules restrict any use of the information to criminally investigate or prosecute any alcohol or drug abuse patient.[facility] HospitalIn the event this information is protected by the Federal Confidentiality of Alcohol and Drug Abuse Patient Records regulations: The Federal rules restrict any use of the information to criminally investigate or prosecute any alcohol or drug abuse patient.[facility] HospitalIn the event this information is protected by the Federal Confidentiality of Alcohol and Drug Abuse Patient Records regulations: The Federal rules restrict any use of the information to criminally investigate or prosecute any alcohol or drug abuse patient.[facility] HospitalIn the event this information is protected by the Federal Confidentiality of Alcohol and Drug Abuse Patient Records regulations: The Federal rules restrict any use of the information to criminally investigate or prosecute any alcohol or drug abuse patient.[facility] HospitalIn the event this information is protected by the Federal Confidentiality of Alcohol and Drug Abuse Patient Records regulations: The Federal rules restrict any use of the information to criminally investigate or prosecute any alcohol or drug abuse patient.[facility] HospitalIn the event this information is protected by the Federal Confidentiality of Alcohol and Drug Abuse Patient Records regulations: The Federal rules restrict any use of the information to criminally investigate or prosecute any alcohol or drug abuse patient.[facility] HospitalIn the event this information is protected by the Federal Confidentiality of Alcohol and Drug Abuse Patient Records regulations: The Federal rules restrict any use of the information to criminally investigate or prosecute any alcohol or drug abuse patient.[facility] HospitalIn the event this information is protected by the Federal Confidentiality of Alcohol and Drug Abuse Patient Records regulations: The Federal rules restrict any use of the information to criminally investigate or prosecute any alcohol or drug abuse patient.[facility] HospitalIn the event this information is protected by the Federal Confidentiality of Alcohol and Drug Abuse Patient Records regulations: The Federal rules restrict any use of the information to criminally investigate or prosecute any alcohol or drug abuse patient.[facility] HospitalIn the event this information is protected by the Federal Confidentiality of Alcohol and Drug Abuse Patient Records regulations: The Federal rules restrict any use of the information to criminally investigate or prosecute any alcohol or drug abuse patient.[facility] HospitalIn the event this information is protected by the Federal Confidentiality of Alcohol and Drug Abuse Patient Records regulations: The Federal rules restrict any use of the information to criminally investigate or prosecute any alcohol or drug abuse patient.[facility] HospitalIn the event this information is protected by the Federal Confidentiality of Alcohol and Drug Abuse Patient Records regulations: The Federal rules restrict any use of the information to criminally investigate or prosecute any alcohol or drug abuse patient.[facility] HospitalIn the event this information is protected by the Federal Confidentiality of Alcohol and Drug Abuse Patient Records regulations: The Federal rules restrict any use of the information to criminally investigate or prosecute any alcohol or drug abuse patient.[facility] HospitalIn the event this information is protected by the Federal Confidentiality of Alcohol and Drug Abuse Patient Records regulations: The Federal rules restrict any use of the information to criminally investigate or prosecute any alcohol or drug abuse patient.[facility] HospitalIn the event this information is protected by the Federal Confidentiality of Alcohol and Drug Abuse Patient Records regulations: The Federal rules restrict any use of the information to criminally investigate or prosecute any alcohol or drug abuse patient.[facility] HospitalIn the event this information is protected by the Federal Confidentiality of Alcohol and Drug Abuse Patient Records regulations: The Federal rules restrict any use of the information to criminally investigate or prosecute any alcohol or drug abuse patient.[facility] HospitalIn the event this information is protected by the Federal Confidentiality of Alcohol and Drug Abuse Patient Records regulations: The Federal rules restrict any use of the information to criminally investigate or prosecute any alcohol or drug abuse patient.[facility] Reason for Visit (unrecogniz ed section and content) Reason Onset Date Comments Refill Request 07/09/2021 Reason Comments Refill Request Reason Onset Date Comments Refill Request 07/25/2021 Reason Comments Pain (LT) knee pain rated 8, x1 day radiating to foot, denied accident/ injury Reason Onset Date Comments Refill Request 08/15/2021 Reason Comments Left Knee Pain Specialty Diagnoses / Procedures Referred By Herman t Referred To Contact Orthopedics Diagnoses Acute pain of left knee Effusion, left knee Procedures CONSULT TO ORTHOPAEDICS OFFICE/OUTPATIENT [facility] 60-74 MINUTES Tuan Oleary MD [address] [place] [address] [place] [address] Referral ID Status Reason Start Date Expiration Date V isits Requested Visits Authorized [id number] Closed PCP Requested Referral 08/07/2021 04/10/2022 1 1 Reason Onset Date Comments Refill Request 09/02/2021 Reason Onset Date Comments Refill Request 10/31/2021 Reason Comments Results, Lab Completed on 11/14 Specialty Diagnoses / Procedures Referred By Contac t Referred To Contact Family Practice / FAMILY MEDICINE Diagnoses follow up post lab results Procedures 4C EST Stanley Sweeney, [address] [place] [address] Adia Robles APRN.[employer]ANGING ROLL OPERATOR [address] [place] [address] Referral ID Status Reason Start Date Expiration Date Visits Re quested Visits Authorized [id number] Closed 2021 02/21/2022 1 1 Reason Onset Date Comments Refill Request 01/06/2022 Reason Onset Date Comments Refill Request 04/06/2022 Reason Comments Sore Throat Swollen and red, con gestion, drainage x 3 days Specialty Diagnoses / Procedures Referred By Herman jara Referred To Contact [facility] Medicine / [facility] Diagnoses Sore throat Swollen strep exposure, sore throat, swollen and red, congestion, drainage Procedures OFFICE/OUTPATIENT ESTABLISHED MOD MDM 30-39 MIN EST SAME DAY Self [facility] [address] [place] [address] Referral ID Status Reason Start Date Expiration Date Visits Re quested Visits Authorized [id number] Closed 05/06/2022 04/10/2023 1 1 Reason Comments Short Of Breath Dx with viral infect ion at EC 05/06 Specialty Diagnoses / Procedures Referred By Herman jara Referred To Contact Family Medicine / FAMILY MEDICINE Diagnoses Shortness of breath Shortness of breath with little activity. Blood work if time for recheck. CPAP recheck. Procedures OFFICE/OUTPATIENT ESTABLISHED MOD MDM 30-39 MIN 4C EST Self Adia Robles, CONSULTING ACTUARY.FLANGING ROLL OPERATOR [address] [place] [address] Referral ID Status Reason Start Date Expiration Date Visits Re quested Visits Authorized [id number] Closed 05/12/2022 04/10/2023 1 1 Reason Comments Spirometry Specialty Diagnoses / Procedures Referred By Herman jara [facility] Diagnoses Mild persistent asthma without complication Wheezing SOB (shortness of breath) on exertion Decreased lung sounds Procedures SPIROMETRY - BASELINE AND POST DILATOR BRNCDILAT RSPSE SPMTRY PRE&POST-BRNCDILAT ADMN Adia Robles, CONSULTING ACTUARY.FLANGING ROLL OPERATOR [address] [place] [address] [facility] [place] [address] [place] [address] Referral ID Status Reason Start Date Expiration Date V isits Requested Visits Authorized [id number] Closed Auto-Generate d Referral 05/17/2022 04/10/2023 1 1 Reason Comments Results Reason Comments Follow Up Spirometry & sleep s tudy results Specialty Diagnoses / Procedures Referred By Herman t Referred To Contact Family Medicine / FAMILY MEDICINE Diagnoses Follow-up exam follow up Procedures OFFICE/OUTPATIENT ESTABLISHED MOD MDM 30-39 MIN 4C EST Stanley Sweeney, DO [address] [place] [address] Adia Robles APRN.FLANGING ROLL OPERATOR [address] [place] [phone] Referral ID Status Reason Start Date Expiration Date Visits Re quested Visits Authorized [id number] Closed 06/23/2022 04/10/2023 1 1 Reason Comments Constipation Pt reported constipa tion, intermittent red rectal bleeding with BM. Specialty Diagnoses / Procedures Referred By Herman t Referred To Contact [facility] Medicine / [facility] Diagnoses Stomachache Constipation, nausea and stomach Procedures OFFICE/OUTPATIENT ESTABLISHED MOD MDM 30-39 MIN EST SAME DAY Self Katrin Ceballos APRN.FLANGING ROLL OPERATOR [address] [place] [phone] Referral ID Status Reason Start Date Expiration Date Visits Re quested Visits Authorized [id number] Closed 07/02/2022 04/10/2023 1 1 Reason Onset Date Comments Refill Request 07/06/2022 Reason Comments Appointment Reason Onset Date Comments Refill Request 12/10/2022 Reason Comments Pain (foot) Panda feet x 1 month Specialty Diagnoses / Procedures Referred By Herman t Referred To Contact Family Medicine / [facility]ILY MEDICINE Diagnoses Foot pain Foot pain in both feet but more in my left Procedures OFFICE/OUTPATIENT ESTABLISHED MOD MDM 30-39 MIN 4C EST Self Adia Robles, CONSULTING ACTUARY.FLANGING ROLL OPERATOR [address] [place] [address] Referral ID Status Reason Start Date Expiration Date Visits Re quested Visits Authorized [id number] Closed 12/15/2022 04/10/2023 1 1 Reason Comments Chest Congestion cough x 5 days Reason Comments Results Appointment Orders Reason Onset Date Comments Refill Request 01/09/2023 Reason Comments New Patient Dx: Hepatic steatosi s Specialty Diagnoses / Procedures Referred By Herman t Referred To Contact FAMILY MEDICINE Diagnoses Hepatic steatosis Procedures CONSULT TO HEPATOLOGY OFFICE/OUTPATIENT NEW HIGH MDM 60-74 MINUTES Adia Robles, CONSULTING ACTUARY.FLANGING ROLL OPERATOR [address] [place] [address] [facility] [address] [place] [address] Referral ID Status Reason Start Date Expiration Date V isits Requested Visits Authorized [id number] Closed PCP Requested Referral 01/14/2023 04/10/2023 1 1 Reason Onset Date Comments Refill Request 02/01/2023 Reason Comments Radiology US Specialty Diagnoses / Procedures Referred By Contac t Referred To Contact US IMAGING Diagnoses Elevated LFTs Hepatic steatosis Procedures US ABD RIGHT UPPER QUADRANT US ABDOMINAL REAL TIME W/IMAGE LIMITED Adia Robles, CONSULTING ACTUARY.FLANGING ROLL OPERATOR [address] [place] [address] [place] [address] Referral ID Status Reason Start Date Expiration Date V isits Requested Visits Authorized [id number] Closed Auto-Generate d Referral 12/21/2022 04/10/2023 1 1 Specialty Diagnoses / Procedures Referred By Contac t Referred To Contact MR IMAGING Diagnoses Encounter for observation for other suspected diseases and conditions ruled out Procedures MRI FOOT/TOES WO IVCON LEFT MRI LOWER EXTREM OTH/THN JT W/O CONTR MATRL Eren Calderon [address] [place] [address] [place] [address] Referral ID Status Reason Start Date Expiration Date V isits Requested Visits Authorized [id number] Closed Auto-Generate d Referral 01/07/2023 02/21/2023 1 1 Reason Comments Established Patient 1 Month Follow Up Reason Comments New Patient Evaluation Specialty Diagnoses / Procedures Referred By Contac t Referred To Contact General Surgery / GENERAL SURGERY Diagnoses Right upper quadrant pain Calculus of gallbladder without cholecystitis without obstruction R10.11 (ICD-10-CM) - RUQ pain (ok per Remedios/Lu) Procedures OFFICE/OUTPATIENT ESTABLISHED MOD MDM 30-39 MIN POST OP Stanley Sweeney DO [address] [place] [address] Ginna Agarwal MD [address] [facility] [address] [place] [id number] Referral ID Status Reason Start Date Expiration Date V isits Requested Visits Authorized [id number] New Request 04/14/2023 07/13/2023 1 1 Reason Onset Date Comments Refill Request 06/15/2023 Reason Comments Patient Question Reason Comments Patient Update Reason Comments Post Op Follow Up Reason Comments Bariatric Seminar Reason Comments F/U 3 Month Reason Comments Follow Up Reason Comments Medication Problem Reason Onset Date Comments Refill Request 12/12/2023 Specialty Diagnoses / Procedures Referred By Contac t Referred To Contact Radiology / [facility] Diagnoses Acute cough rm 9 Procedures RADIOLOGIC EXAM CHEST 2 VIEWS XR CHEST Sofy Frazier, CONSULTING ACTUARY.FLANGING ROLL OPERATOR [address] [place] [address] Radio [facility] [address] [place] [address] Referral ID Status Reason Start Date Expiration Date Visits Re quested Visits Authorized [id number] Closed 12/20/2022 04/10/2023 1 1 Specialty Diagnoses / Procedures Referred By Contac t Referred To Contact XR IMAGING Diagnoses Acute constipation Procedures XR ABDOMEN 1V SUPINE RADIOLOGIC EXAM ABDOMEN 1 VIEW Katrin Ceballos, CONSULTING ACTUARY.FLANGING ROLL OPERATOR [address] [place] [address] [place] [address] Referral ID Status Reason Start Date Expiration Date V isits Requested Visits Authorized [id number] Closed Auto-Generated Referral Clearance Not Met -Financial Clearance Bypassed 07/02/2022 04/10/2023 1 1 Reason Comments Physical Knee Pain R knee x1 week Abdominal Pain RUQ x 2 weeks, gallb ladder removed JAN 2023, Specialty Diagnoses / Procedures Referred By Contac t Referred To Contact US IMAGING Diagnoses RUQ pain Hepatic steatosis Procedures US ABD RIGHT UPPER QUADRANT US ABDOMINAL REAL TIME W/IMAGE LIMITED Adia Robles, CONSULTING ACTUARY.FLANGING ROLL OPERATOR [address] [place] [address] [place] [address] Referral ID Status Reason Start Date Expiration Date V isits Requested Visits Authorized [id number] Closed Auto-Generate d Referral 01/05/2024 02/03/2025 1 1 Reason Onset Date Comments Refill Request 02/01/2024 Reason Onset Date Comments Refill Request 02/05/2024 Reason Comments potassium low on preop labs Reason Comments Cough Chest congestion, ST x5 days Reason Comments requesting lab orders Reason Onset Date Comments Refill Request 04/06/2024 Reason Comments Medication Follow-up Restart adipex Reason Onset Date Comments Refill Request 05/07/2024 Reason Onset Date Comments Refill Request 06/04/2024 Reason Comments Diarrhea Vomiting Reason Comments F/U 3 Month Adipex Reason Comments Pain Established Patient Specialty Diagnoses / Procedures Referred By Herman jara Referred To Contact Podiatry Diagnoses Foot pain, bilateral Procedures CONSULT TO PODIATRY OFFICE/OUTPATIENT [facility] 60 MINUTES Adia Robles APRN.FLANGING ROLL OPERATOR [address] [place] [address] Phone: tel: fax: Referral ID Status Reason Start Date Expiration Date V isits Requested Visits Authorized [id number] Closed PCP Requested Referral 07/18/2024 07/18/2025 1 1 Reason Comments Physical Reason Onset Date Comments Refill Request 12/03/2024 Care Teams (unrecognized sec tion and content) Vp Site Relationship Specialty Start Date End Date Stanley Sweeney, DO [address] [place] [address] PCP - General Family Practice 02/11/15 Vp Site Relationship Specialty Start Date End Date Stanley Sweeney DO [address] [place] [address] PCP - General Family Practice 02/11/15 Vp Site Relationship Specialty Start Date End Date Stanley Sweeney DO [address] [place] [address] PCP - General Family Practice 02/11/15 Vp Site Relationship Specialty Start Date End Date Stanley Sweeney DO [address] [place] [address] PCP - General Family Practice 02/11/15 Vp Site Relationship Specialty Start Date End Date Stanley Sweeney DO [address] [place] [address] PCP - General Family Practice 02/11/15 Vp Site Relationship Specialty Start Date End Date Stanley Sweeney, DO [address] [place] [address] PCP - General Family Practice 02/11/15 Vp Site Relationship Specialty Start Date End Date Stanley Sweeney, DO [address] [place] [address] PCP - General Family Practice 02/11/15 Vp Site Relationship Specialty Start Date End Date Stanley Sweeney, DO [address] [place] [address] PCP - General Family Practice 02/11/15 Vp Site Relationship Specialty Start Date End Date Stanley Sweeney, DO [address] [place] [address] PCP - General Family Practice 02/11/15 Vp Site Relationship Specialty Start Date End Date Stanley Sweeney, DO [address] [place] [address] PCP - General Family Medicine 02/11/15 Vp Site Relationship Specialty Start Date End Date Stanley Sweeney, DO [address] [place] [address] PCP - General Family Medicine 02/11/15 Vp Site Relationship Specialty Start Date End Date Stanley Sweeney, DO [address] [place] [address] PCP - General Family Medicine 02/11/15 Vp Site Relationship Specialty Start Date End Date Stanley Sweeney, DO [address] [place] [address] PCP - General Family Medicine 02/11/15 Vp Site Relationship Specialty Start Date End Date Stanley Sweeney, DO [address] [place] [address] PCP - General Family Medicine 02/11/15 Vp Site Relationship Specialty Start Date End Date Stanley Sweeney, DO [address] [place] [address] PCP - General Family Medicine 02/11/15 Vp Site Relationship Specialty Start Date End Date Stanley Sweeney, DO [address] [place] [address] PCP - General Family Medicine 02/11/15 Vp Site Relationship Specialty Start Date End Date Stanley Sweeney, DO [address] [place] [address] PCP - General Family Medicine 02/11/15 Vp Site Relationship Specialty Start Date End Date Stanley Sweeney, DO [address] [place] [address] PCP - General Family Medicine 02/11/15 Vp Site Relationship Specialty Start Date End Date Stanley Sweeney, DO [address] [place] [address] PCP - General Family Medicine 02/11/15 Vp Site Relationship Specialty Start Date End Date Stanley Sweeney, DO [address] [place] [address] PCP - General Family Medicine 02/11/15 Vp Site Relationship Specialty Start Date End Date Stanley Sweeney, DO [address] [place] [address] PCP - General Family Medicine 02/11/15 Vp Site Relationship Specialty Start Date End Date Stanley Sweeney, DO [address] [place] [address] PCP - General Family Medicine 02/11/15 Vp Site Relationship Specialty Start Date End Date Stanley Sweeney, [address] [place] [address] PCP - General Family Medicine 02/11/15 Vp Site Relationship Specialty Start Date End Date Stanley Sweeney, [address] [place] [address] PCP - General Family Medicine 02/11/15 Vp Site Relationship Specialty Start Date End Date Stanley Sweeney, [address] [place] [address] PCP - General Family Medicine 02/11/15 Vp Site Relationship Specialty Start Date End Date Stanley Sweeney DO [address] [place] [address] PCP - General Family Medicine 02/11/15 Vp Site Relationship Specialty Start Date End Date Stanley Sweeney DO [address] [place] [address] PCP - General Family Medicine 02/11/15 Vp Site Relationship Specialty Start Date End Date Stanley Sweeney DO [address] [place] [address] PCP - General Family Medicine 02/11/15 Vp Site Relationship Specialty Start Date End Date Stanley Sweeney DO [address] [place] [address] PCP - General Family Medicine 02/11/15 Vp Site Relationship Specialty Start Date End Date Stanley Sweeney, [address] [place] [address] PCP - General Family Medicine 02/11/15 Vp Site Relationship Specialty Start Date End Date Stanley Sweeney DO [address] [facility] [place] [address] PCP - General Family Medicine 02/11/15 Vp Site Relationship Specialty Start Date End Date Stanley Sweeney DO [address] [facility] [place] [address] PCP - General Family Medicine 02/11/15 Vp Site Relationship Specialty Start Date End Date Stanley Sweeney DO [address] [place] [address] PCP - General Family Medicine 02/11/15 Vp Site Relationship Specialty Start Date End Date Stanley Sweeney DO [address] [facility] [place] [address] PCP - General Family Medicine 02/11/15 Vp Site Relationship Specialty Start Date End Date Stanley Sweeney DO [address] [facility] [place] [address] PCP - General Family Medicine 02/11/15 Vp Site Relationship Specialty Start Date End Date Stanley Sweeney DO [address] [facility] [place] [address] PCP - General Family Medicine 02/11/15 Vp Site Relationship Specialty Start Date End Date Stanley Sweeney DO [address] [facility] [place] [address] PCP - General Family Medicine 02/11/15 Vp Site Relationship Specialty Start Date End Date Stanley Sweeney DO [address] [facility] [place] [address] PCP - General Family Medicine 02/11/15 Vp Site Relationship Specialty Start Date End Date Stanley Sweeney DO [address] [place] [address] PCP - General Family Medicine 02/11/15 Vp Site Relationship Specialty Start Date End Date Stanley Sweeney DO [address] [place] [address] PCP - General Family Medicine 02/11/15 Vp Site Relationship Specialty Start Date End Date Stanley Sweeney DO [address] [place] [address] PCP - General Family Medicine 02/11/15 Vp Site Relationship Specialty Start Date End Date Stanley Sweeney DO [address] [place] [address] PCP - General Family Medicine 02/11/15 Vp Site Relationship Specialty Start Date End Date Stanley Sweeney DO [address] [place] [address] PCP - General Family Medicine 02/11/15 Vp Site Relationship Specialty Start Date End Date Stanley Sweeney DO [address] [place] [address] PCP - General Family Medicine 02/11/15 Team Status: Active Member Role Status Dates Dr. Stanley Sweeney DO Family Provider Active Dr. Stanley Sweeney DO Primary Care Provider Active Team Status: Inactive Member Role Status Dates Dr. Stanley Sweeney DO Primary Care Provider Active Dr. Kurt Rosenberg MD Emergency Provider Active Vp Site Relationship Specialty Start Date End Date Stanley Sweeney DO [address] [facility] [place] [address] PCP - General Family Medicine 02/11/15 Vp Site Relationship Specialty Start Date End Date Stanley Sweeney DO [address] [facility] [place] [address] PCP - General Family Medicine 02/11/15 Vp Site Relationship Specialty Start Date End Date Stanley Sweeney DO [address] [facility] [place] [address] PCP - General Family Medicine 02/11/15 Vp Site Relationship Specialty Start Date End Date Stanley Sweeney DO [address] [facility] [place] [address] PCP - General Family Medicine 02/11/15 Vp Site Relationship Specialty Start Date End Date Stanley Sweeney DO [address] [facility] [place] [address] PCP - General Family Medicine 02/11/15 Vp Site Relationship Specialty Start Date End Date Stanley Sweeney DO [address] [facility] [place] [address] PCP - General Family Medicine 02/11/15 Vp Site Relationship Specialty Start Date End Date Stanley Sweeney, [address] [facility] [place] [address] PCP - General Family Medicine 02/11/15 Vp Site Relationship Specialty Start Date End Date Stanley Sweeney DO [address] [facility] [place] [address] PCP - General Family Medicine 02/11/15 Vp Site Relationship Specialty Start Date End Date Stanley Sweeney DO [address] [facility] [place] [address] PCP - General Family Medicine 02/11/15 Vp Site Relationship Specialty Start Date End Date Stanley Sweeney DO [address] [facility] [place] [place] [address] PCP - General Family Medicine 02/11/15 Vp Site Relationship Specialty Start Date End Date Stanley Sweeney DO [address] [facility] [place] [address] PCP - General Family Medicine 02/11/15 Vp Site Relationship Specialty Start Date End Date Stanley Sweeney DO [address] [facility] [place] [address] PCP - General Family Medicine 02/11/15 Vp Site Relationship Specialty Start Date End Date Stanley Sweeney DO [address] [facility] [place] [address] PCP - General Family Medicine 02/11/15 Vp Site Relationship Specialty Start Date End Date Stanley Sweeney DO [address] [facility] [place] [address] PCP - General Family Medicine 02/11/15 Deisi Jules, CONSULTING ACTUARY.FLANGING ROLL OPERATOR [address] [facility] [place] [address] Dermatologist Family Medicine 03/18/24 Adia Robles, AYLIN.FLANGING ROLL OPERATOR [address] [facility] [place] [address] Dermatologist Family Medicine 03/18/24 Vp Site Relationship Specialty Start Date End Date Stanley Sweeney DO [address] [place] [address] PCP - General Family Medicine 02/11/15 Deisi Jules, CONSULTING ACTUARY.FLANGING ROLL OPERATOR [address] [place] [address] Dermatologist Family Medicine 03/18/24 Adia Robles, CONSULTING ACTUARY.FLANGING ROLL OPERATOR [address] [place] [address] Dermatologist Family Medicine 03/18/24 Vp Site Relationship Specialty Start Date End Date Stanley Sweeney DO [address] [place] [address] PCP - General Family Medicine 02/11/15 Deisi Jules, CONSULTING ACTUARY.FLANGING ROLL OPERATOR [address] [place] [address] Dermatologist Family Medicine 03/18/24 Adia Robles, CONSULTING ACTUARY.FLANGING ROLL OPERATOR [address] [place] [address] Dermatologist Family [facility] 03/18/24 Vp Site Relationship Specialty Start Date End Date Stanley Sweeney DO [address] [place] [address] PCP - General Family Medicine 02/11/15 Deisi Jules, CONSULTING ACTUARY.FLANGING ROLL OPERATOR [address] [place] [address] Dermatologist Family Medicine 03/18/24 Adia Robles, CONSULTING ACTUARY.FLANGING ROLL OPERATOR [address] [place] [address] Dermatologist Family [facility] 03/18/24 Vp Site Relationship Specialty Start Date End Date Stanley Sweeney DO [address] [place] [address] PCP - General Family Medicine 02/11/15 Deisi Jules, CONSULTING ACTUARY.FLANGING ROLL OPERATOR [address] [place] [address] Dermatologist Family [facility] 03/18/24 TravisAdia, CONSULTING ACTUARY.FLANGING ROLL OPERATOR [address] [place] [address] [facility] 03/18/24 Vp Site Relationship Specialty Start Date End Date Stanley Sweeney DO [address] [place] [address] PCP - General Family Medicine 02/11/15 Deisi Jules, CONSULTING ACTUARY.FLANGING ROLL OPERATOR [address] [place] [address] [facility] 03/18/24 TravisAdia, CONSULTING ACTUARY.FLANGING ROLL OPERATOR [address] [place] [address] [facility] 03/18/24 Vp Site Relationship Specialty Start Date End Date Stanley Sweeney DO [address] [place] [address] PCP - General Family Medicine 02/11/15 Deisi Jules, CONSULTING ACTUARY.FLANGING ROLL OPERATOR [address] [place] [address] Dermatologist Family [facility] 03/18/24 Adia Robles, CONSULTING ACTUARY.FLANGING ROLL OPERATOR [address] [place] [address] [facility] 03/18/24 Vp Site Relationship Specialty Start Date End Date Stanley Sweeney DO [address] [place] [address] PCP - General Family Medicine 02/11/15 Deisi Jules, CONSULTING ACTUARY.FLANGING ROLL OPERATOR [address] [place] [address] [facility] 03/18/24 Adia Robles, CONSULTING ACTUARY.FLANGING ROLL OPERATOR [address] [place] [address] [facility] 03/18/24 Vp Site Relationship Specialty Start Date End Date Stanley Sweeney DO [address] [place] [address] PCP - General Family Medicine 02/11/15 Adia Robles, CONSULTING ACTUARY.FLANGING ROLL OPERATOR [address] [place] [address] [facility] 03/18/24 Vp Site Relationship Specialty Start Date End Date Stanley Sweeney DO [address] [place] [address] PCP - General Family Medicine 02/11/15 Adia Robles, CONSULTING ACTUARY.FLANGING ROLL OPERATOR [address] [place] [address] [facility] 03/18/24 Vp Site Relationship Specialty Start Date End Date Stanley Sweeney DO [address] [facility] [place] [address] PCP - General Family Medicine 02/11/15 [facility] CONSULTING ACTUARY.FLANGING ROLL OPERATOR [address] [place] [address] [facility] 03/18/24 Vp Site Relationship Specialty Start Date End Date Stanley Sweeney DO [address] [facility] [place] [address] PCP - General Family Medicine 02/11/15 [facility], CONSULTING ACTUARY.FLANGING ROLL OPERATOR [address] [place] [address] [facility] 03/18/24 Vp Site Relationship Specialty Start Date End Date Stanley Sweeney DO [address] [place] [address] PCP - General Family Medicine 02/11/15 [facility], CONSULTING ACTUARY.FLANGING ROLL OPERATOR [address] [place] [address] [facility] 03/18/24 Vp Site Relationship Specialty Start Date End Date Stanley Sweeney DO [address] [facility] [place] [address] PCP - General Family Medicine 02/11/15 [facility], CONSULTING ACTUARY.FLANGING ROLL OPERATOR [address] [facility] [place] [address] [facility] 03/18/24 Jenifer Villa, CONSULTING ACTUARY.FLANGING ROLL OPERATOR [address] [place] [address] [facility] 09/24/24 Vp Site Relationship Specialty Start Date End Date Stanley Sweeney DO [address] [facility] [place] [address] PCP - General Family Medicine 02/11/15 TravisAdia, CONSULTING ACTUARY.FLANGING ROLL OPERATOR [address] [place] [address] Dermatologist Family Medicine 03/18/24 Jenifer Villa, CONSULTING ACTUARY.FLANGING ROLL OPERATOR [address] [place] [address] [facility] Medicine 09/24/24 Vp Site Relationship Specialty Start Date End Date Stanley Sweeney DO [address] [place] [address] PCP - General Family Medicine 02/11/15 TravisAdia, CONSULTING ACTUARY.FLANGING ROLL OPERATOR [address] [place] [address] [facility] 03/18/24 Jenifer Villa, CONSULTING ACTUARY.FLANGING ROLL OPERATOR [address] [place] [address] [facility] Medicine 09/24/24 Vp Site Relationship Specialty Start Date End Date Stanley Sweeney DO [address] [facility] [place] [address] PCP - General Family Medicine 02/11/15 Adia Robles, CONSULTING ACTUARY.FLANGING ROLL OPERATOR [address] [place], [place] [address] [facility] 03/18/24 Jenifer Villa APRN.FLANGING ROLL OPERATOR [address] [place], [place] [address] [facility] 09/24/24 Vp Site Relationship Specialty Start Date End Date Stanley Sweeney DO [address] [place], [place] [address] PCP - General Family Medicine 02/11/15 Adia Robles APRN.FLANGING ROLL OPERATOR [address] [place], [place] [address] [facility] 03/18/24 Jenifer Villa, CONSULTING ACTUARY.FLANGING ROLL OPERATOR [address] [place], [place] [id number] [facility] 09/24/24 Goals (unrecognized section and content) Goals may be documented in a n alternate section FOR RECORDS PERTAINING TO PATIENTS WHO ARE OR HAVE BEEN ENROLLED IN A CHEMICAL DEPENDENCY/SUBSTANCEABUSE PROGRAM, SOME INFORMATION MAY BE OMITTED. This clinical summary was aggregated from multiple sources. Caution should be exercised in using it in the provision of clinical care. This summary normalizes information from multiple sources, and as a consequence, information in this document may materially change the coding, format and clinical context of patient data. In addition, data may be omitted in some cases. CLINICAL DECISIONS SHOULD BE BASED ON THE PRIMARY CLINICAL RECORDS. [employer] provides no warranty or guarantee of the accuracy or completeness of information in this document.
[2025-03-07 11:20] LABS: Hematocrit 42.2 % (37-47); Hemoglobin 14.5 g/dL (12.0-15.0); Immature Granulocytes Count 0.060 X10^3/uL (0.0-0.0); Mean Corp Hgb Conc 34.4 g/dL (32-36); Mean Corpuscular Volume 86.1 fL (81-99); Mean Platelet Vol. 8.6 fl (6.2-12.0); NRBC Flagged by Analyzer 0 % (0-5); Platelet Count 145 K/mm3 (150-450); RBC Distribution Width CV 13.2 % (11.6-14.6); RBC Distribution Width SD 41.4 fl (35.1-43.9); Red Blood Count 4.90 M/mm3 (4.2-5.4); White Blood Count 6.9 K/mm3 (4.4-11.0)
[2025-03-07] MEDS: 0.9% Normal Saline (1000mL) 1,000 ML 999 ML IV (11:24)
[2025-03-07 11:39] LABS: Mucous, Urine 0 SEEN /hpf (<or=2+); Red Blood Cells-Urine 0 SEEN /hpf (0-5)
[2025-03-07 11:58] LABS: Color, Urine Yellow (Yellow); Glucose, Dipstick Normal (Normal); Ketone-Dipstick Negative (Negative); Leukocyte Esterase-Dipstick 500 /ul (Negative); Nitrite-Dipstick Negative (Negative); Occult Blood-Urine 150 /ul (Negative); Protein-Dipstick 100 mg/dl (Negative); Specific Gravity, Urine 1.025 (1.002-1.030); Urine Bilirubin Dipstick Negative (Negative)
[2025-03-07 12:13] LABS: AST(SGOT) 93 U/L (<=31); Alanine Aminotransfer ALT/SGPT 55 U/L (<=34); Albumin, Serum 4.1 g/dL (3.5-5.0); Alkaline Phosphatase 64 U/L (35-104); Anion Gap 12 (5-15); BUN 12 mg/dL (4-19); BUN/Creat Ratio 13.9 RATIO (10-20); Calcium,Total 9.0 mg/dL (7.6-11.0); Carbon Dioxide 26.1 mmol/L (21.0-32.0); Chloride 96 mmol/L (98-108); Estimated Creatinine Clearance 86.08 ml/min (50-250); Globulin 3.6 g/dL (2.2-4.2); Glucose 114 mg/dL (70-99); Lipase 27 U/L (13-75); Potassium 3.9 mmol/L (3.3-5.1)
[2025-03-07 12:13] LABS: Squamous Epithelial Cells - UA 10-25 SEEN /hpf (5-10)
[2025-03-07] MEDS: Pantoprazole Sodium 40 MG in 0.9% Normal Saline (100mL MB+) 100 ML 300 MG IV (12:19)
--- NOTE | 2025-03-07 13:20 | CT_ITS ---
PROCEDURE: ABDOMEN/PELVIS W IV CONT ONLY 03/07/2025 REASON FOR EXAM: N/V ABD PAIN TECHNIQUE: Procedure Code: [id number] Modality: CT Procedure: ABDOMEN/PELVIS W IV CONT ONLY Coronal and Sagittal reconstruction series were provided. CONTRAST: Isovue-300 VOLUME: 88 mL One or more dose reduction techniques were used (e.g., Automated exposure control, adjustment of the mA and/or kV according to patient size, use of iterative reconstruction technique. RADIATION DOSE SUMMARY: CTDlvol: 32 mGy DLP: 1327 mGycm COMPARISON: None FINDINGS: Lung bases: Linear scarring inferior lingula and left lower lobe. Liver: Diffuse fatty liver. No mass seen. Gallbladder: Cholecystectomy. No biliary ductal dilation. Spleen: Normal Pancreas: Normal. No glandular atrophy. No duct dilation or solid mass. Adrenals: Normal Kidneys: Normal Bladder: Normal Reproductive Organs: Hysterectomy Bowel: The stomach, duodenum, jejunum, ileum appear unremarkable. Colon appears normal. Appendix: Likely surgically absent. Lymph nodes: Portacaval lymph node is 2.6 x 2.1 cm. Other smaller portacaval lymph nodes, periceliac and peripancreatic lymph nodes are seen with an index peripancreatic node of the level of the neck measuring 4.2 x 1.6 cm. Vasculature: Mild atherosclerotic plaque Peritoneum / Retroperitoneum: Very mild haziness associated with lymphadenopathy in the upper abdomen mainly around the pancreas portacaval region. Bones: Mild lower lumbar facet hypertrophy. CT/Abdomen/Pelvis W IV Cont ONLY IMPRESSION: 1. Upper abdominal lymphadenopathy is seen in the periceliac, peripancreatic a nd portacaval regions. Mild stranding in this region. Of note, the stomach, duodenum, pancreas appear normal. Spleen is nor mal size. Etiology is non-specific includes infectious and inflammatory processes. If symptoms persist, portacaval lymph n ode may be amenable to sampling by endoscopy. 2. Cholecystectomy 3. Fatty liver. Reading Location: [id number]
[2025-03-07 14:31] VITALS: BP 103/55; PULSE 100; RESP 20; TEMP 39.5; O2SAT 98
== END 2025-03-07 14:40 | disposition home or self-care (01) ==
PROVIDERS: Emergency Provider Emergency Medicine; PCP Student in an Organized Health Care Education/Training Program; Visit Provider Emergency Medicine
DX: A08.4 Viral intestinal infection, unspecified (principal); R19.5 Other fecal abnormalities
CPT/HCPCS: 74177; 80053; 81001; 82274; 83690; 85025; 87631; 93005; 96365; 96375; 99283; Q9967; A4216; J2405